=== PATIENT | female | born 1940 | race Caucasian/White ===

== ENCOUNTER 2023-03-27 09:52 | Outpatient (OUT) | payer MEDICARE, OTHER, SELFPAY ==
[2023-03-27 14:27] LABS: Estimated Average Glucose 131 mg/dL; Glycohemoglobin A1C 6.2 % (4.5-6.2)
== END 2023-03-27 09:53 | disposition home or self-care (01) ==
LOC: LAB 10:00
PROVIDERS: PCP Internal Medicine; Visit Provider Internal Medicine
DX: E11.65 Type 2 diabetes mellitus with hyperglycemia (principal)
CPT/HCPCS: 36415; 83036

== ENCOUNTER 2023-05-03 07:21 | Outpatient (OUT) | payer MEDICARE, OTHER, SELFPAY ==
[2023-05-03 08:13] LABS: Alanine Aminotransferase 23 U/L (14-59); Anion Gap 8.6; Aspartate Amino Transferase 21 U/L (15-37); BUN Creatinine Ratio 20.3; Calcium 8.5 mg/dL (8.5-10.1); Carbon Dioxide 35.3 mmol/L (21.0-32.0); Chloride 102 mmol/L (98-107); Chol HDL Ratio 2.2; Cholesterol 196 mg/dL (<=200); Estimated GFR (African America >60 (>=60); Estimated GFR (Non-African Ame >60 (>=60); Glucose 114 mg/dL (74-106); HDL Cholesterol 88 mg/dL (40-60); Potassium 3.9 mmol/L (3.5-5.1); Sodium 142 mmol/L (136-145); Triglycerides 89 mg/dL (<=150); VLDL CHOLESTEROL 17.8 mg/dL
== END 2023-05-03 07:22 | disposition home or self-care (01) ==
LOC: LAB 07:24
PROVIDERS: PCP Internal Medicine; Visit Provider Nurse Practitioner
DX: I25.10 Atherosclerotic heart disease of native coronary artery without angina pectoris (principal); I10 Essential (primary) hypertension; E78.2 Mixed hyperlipidemia
CPT/HCPCS: 36415; 80048; 80061; 84450; 84460

== ENCOUNTER 2023-08-25 07:32 | Outpatient (OUT) | payer MEDICARE, OTHER, SELFPAY ==
[2023-08-25 08:09] LABS: Basophils Percent Auto 0.6 % (0.2-2.0); Eosinophils Absolute Auto 0.1 10^3/uL (0.0-0.7); Eosinophils Percent Auto 2.2 % (0.9-7.0); Hematocrit 40.3 % (36.0-48.0); Hemoglobin 12.4 g/dL (12.0-16.0); Immature Granulocytes Abs Auto 0.01 10^3/uL (0.00-0.03); Immature Granulocytes Pct Auto 0.2 % (0.0-0.5); Lymphocytes Percent Auto 46.8 % (20.5-60.0); Mean Corpuscular HGB Conc 30.8 g/dL (29.9-35.2); Mean Corpuscular Hemoglobin 28.8 pg (26.7-34.0); Mean Corpuscular Volume 93.5 fL (81.0-99.0); Monocytes Absolute Auto 0.5 10^3/uL (0.3-0.8); Monocytes Percent Auto 7.3 % (1.7-12.0); Neutrophils Absolute Auto 2.8 10^3/uL (1.4-6.5); Neutrophils Percent Auto 42.9 % (43.0-75.0); Platelet Count 200 10^3/uL (150-450); Red Blood Count 4.31 10^6/uL (4.20-5.40); Red Cell Distribution Width 13.3 % (11.0-15.0); White Blood Count 6.4 10^3/uL (4.0-11.0)
[2023-08-25 08:14] LABS: Estimated Average Glucose 137 mg/dL; Glycohemoglobin A1C 6.4 % (4.5-6.2)
== END 2023-08-25 07:33 | disposition home or self-care (01) ==
LOC: LAB 07:34
PROVIDERS: PCP Internal Medicine; Visit Provider Internal Medicine
DX: E11.65 Type 2 diabetes mellitus with hyperglycemia (principal); I10 Essential (primary) hypertension
CPT/HCPCS: 36415; 83036; 85025

== ENCOUNTER 2024-09-02 07:03 | Outpatient (OUT) | payer OTHER, SELFPAY ==
--- OUTSIDE RECORDS SUMMARY | 2024-09-02 07:09 | XMS_ITS | CCD ---
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 Role Phone DO Blue Navarro Primary Care Provider JUAN Green Attending Provider [phone] Blue Navarro DO Primary Care Provider Blue Navarro DO Primary Care Provider DO Blue Navarro Primary Care Provider DO José Nelson Admit Provider DO Julio Schreiber Attending Provider DO [place] Emergency Provider DO Julio Schreiber Admit Provider [phone] Blue Navarro Unavailable Unavailable Unavailable MD Je Ruiz Attending Provider Blue Navarro Unavailable MELANIE, DR MCARTHUR Primary Care Unavailable PAY ., DR SOLIS Admitting Unavailable PAY ., DR SOLIS Attending Unavailable MELANIE, DR MCARTHUR Consulting Unavailable PAY ., DR SOLIS Consulting Unavailable MELANIE, DR MCARTHUR Primary Care Unavailable FRANSICO, DR BRUNO Oliveira Admitting Unavailabl e REINECK, DR BRUNO Oliveira Attending Unavailabl e RUBYECK, DR BRUNO Oliveira Consulting Unavailabl e NEFMANJULA DOTY Consulting Unavailable DO Blue Navarro Primary Care Provider MD Je Ruiz Attending Provider DO Blue Navarro Other Provider JUAN Valentin Attending Provider Asaad, Imad Unavailable Dr. Je Daley Attending Unava ilable McGuinn II, Dr. Je Porras Attending Unavailable Melanie, Dr. Blue Sutherland Primary Care Caden Navarro, Dr. Blue Sutherland Primary Care Caden Daley, Dr. Je Fowler Attending Unava ilable Edi, Dr. Je Fowler Attending Unava ilable Edi, Dr. Je Fowler Attending Unava ilable McGuinn II, Dr. Je Porras Attending Unavailable Melanie, Dr. Blue Sutherland Primary [facility] Fabii raphael Ruiz II, Dr. Je Porras Referring Unavailable Melanie, Dr. Blue Sutherland [facility] Shanna Light Referring Unavailable Werner, Shanna Attending Unavailable Melanie, Dr. Blue Sutherland Primary [facility] Shanna Light Attending Unavailable Sara MALCOLM, Dr. Je Porras Referring Unavailable Melanie, Dr. Blue Sutherland Primary [facility] Caden Navarro, DO Mcarthur Primary Care Provider [phone] MD Je Ruiz Attending Provider Blue Navarro DO Primary Care Provider Melanie, DO Mcarthur Primary Care Provider MD Je Ruiz Attending Provider DO Blue Navarro Primary Care Provider MD Je Ruiz Attending Provider Melanie, DO Mcarthur Primary Care Provider MD Je Ruiz Attending Provider Melanie, DO Mcarthur Primary Care Provider MD Je Ruiz Attending Provider SHANNA CALDERA Attending Unavailable BLUE NAVARRO Primary Care Unavailable SHANNA CALDERA K Attending Unavailable SHANNA CALDERA K Referring Unavailable BLUE NAVARRO Primary Care Unavailable JE RUIZ Attending Unavailable SHANNA CALDERA K Referring Unavailable BLUE NAVARRO Primary Care Unavailable Blue Navarro DO Primary Care Provider Blue Navarro DO Primary Care Provider Blue Navarro DO Primary Care Provider [phone] Beau Dillard MD Attending Provider Je Ruiz Attending Unavail able Je Ruiz Admitting Unavail able Melanie, Blue Primary Care Unavailable Je Ruiz Attending Unavail able Je Ruiz Admitting Unavail able Ball, Blue Primary Care Unavailable Ball, Blue Primary Care Unavailable Beau Dillard Attending Unavailable Beau Dillard Admitting Unavailable Melanie, Blue Primary Care Unavailable Beau Dillard Attending Unavailable Beau Dillard Admitting Unavailable Ball DOBlue Primary Care Provider [phone] Beau Dillard MD Attending Provider Allergies Allergy Classification Reported Allergen(s) Allergy Type Date of Onset Reaction(s) Facility (1 source) patient allergy list reviewed by nurse or physicia Propensity to adverse reactions 5 Comment:[employer] Other Medications Current Medications Medication Drug Class(es) Dates Sig (Normalized) Sig (Original) acetaminophen 500 mg oral tablet (5 sources) Start: 02-09-2021 take 1 tablet by mouth every eight hours as needed acetaminophen (TYLENOL EXTRA STRENGTH) 500 mg tablet Take 1 tablet by mouth every 8 hours as needed for pain or fever (specify). 60 tablet 02/09/2021 Active Comment on above: Take 1 tablet by mouna every 8 hours as needed for pain or fever (specify). alendronic acid 70 mg oral tablet (5 sources) Bisphosphonate Start: 07-04-2020 alendronate (FOSAMAX) 70 mg tablet Pt reports taking every 07/04/2020 Active Comment on above: Pt reports taking ev anand amLODIPine 2.5 mg oral tablet (20 sources) Dihydropyridine Calcium Channel Jermain Start: 08-22-2023 take 1 tablet by mouth once daily in the evening Amlodipine 2.5 mg tablet Active 2.5 MG PO Daily 90 90 August 22, 2023 12:00am Take in evening Start: 08-19-2023 End: 08-22-2023 take 1 tablet by mouth twice daily Amlodipine 10 mg tablet Discontinued 10 MG PO Twice daily August 19, 2023 12:00am August 22, 2023 10:18am Start: 07-27-2023 End: 07-26-2024 take 1 tablet by mouth once daily Amlodipine 5 mg tablet Active 5 MG PO Daily August 22, 2023 12:00am Start: 09-05-2022 End: 05-01-2023 take 1 tablet by mouth twice daily amLODIPine (Norvasc) 2.5 mg tablet Take 1 tablet (2.5 mg) by mouth 2 times a day. 0 03/18/2023 05/01/2023 Discontinued () Start: 09-05-2022 take 1 tablet by mouna th every twenty-four hours amLODIPine Besylate 2.5 MG 1 tablet Orally Once a day for 30 days Sep, Active Start: 05-05-2022 End: 05-09-2022 take 1 tablet by mouth once daily Amlodipine 5 mg tablet Discontinued 5 MG PO Daily May 05, 2022 1:00am May 09, 2022 12:39pm take 1 tablet by mouna th twice daily amLODIPine Besylate 10 MG TAKE 1 TABLET BY MOUTH TWICE A DAY FOR 30 DAYS Active atorvastatin 10 mg oral tablet (20 sources) HMG-CoA Reductase Inhibitor Start: 05-08-2022 End: 08-22-2024 take 1 tablet by mouth once daily in the evening Atorvastatin 10 mg tablet Active 10 MG PO Every evening 90 August 22, 2024 10:17am Calcium (5 sources) Phosphate Binder, Calcium CALCIUM ORAL Take by mouth once daily. Active CALCIUM ORAL Ryan e by mouth once daily. 0 Active Comment on above: Take by mouth once d aily. citalopram 20 mg oral tablet (20 sources) Serotonin Reuptake Inhibitor Start: 10-05-2023 End: 08-22-2024 take 1 tablet by mouth once daily at bedtime Citalopram 20 mg tablet Active 0 .ROUTE .COMPLEX August 22, 2024 6:53am TAKE 1 TABLET BY MOUTH EVERYDAY AT BEDTIME Start: 07-09-2020 End: 10-05-2023 take 1 tablet by mouth at bedtime Citalopram 20 mg tablet Discontinued 20 MG PO Bedtime May 05, 2022 1:00am October 05, 2023 4:22pm Comment on above: TAKE 1 TABLET BY MOUNA TH EVERYDAY AT BEDTIME docusate sodium 100 mg oral capsule (7 sources) Start: 02-09-2021 take 1 capsule by mouth twice daily docusate sodium (COLACE) 100 mg capsule Take 1 capsule by mouth twice daily. 60 capsule 1 02/09/2021 Active take 1 capsule by [facility] every twenty-four hours Colace 100 MG 1 capsule as needed Orally Once a day Active Comment on above: Take 1 capsule by [facility] twice daily. furosemide 40 mg oral tablet (20 sources) Loop Diuretic Start: 10-06-2023 take 1 tablet by mouth once daily Furosemide 40 mg tablet Active 0 .ROUTE .COMPLEX October 06, 2023 10:04am TAKE 1 TABLET BY MOUTH EVERY DAY FOR 30 DAYS Start: 07-23-2020 End: 10-06-2023 take 1 tablet by mouth once daily Furosemide 40 mg Tablet Discontinued 40 MG PO Daily at 0800 90 May 13, 2022 1:00am October 06, 2023 10:04am Furosemide 40 MG TAKE 1 TABLET BY MOUTH 1-2 TIMES A DAY NEEDED Active Comment on above: Take 40 mg by mouth once daily. LORazepam 0.5 mg oral tablet (5 sources) Benzodiazepine take 0.5 mg by mouth every twelve hours as needed LORazepam (ATIVAN) 0.5 mg Take 0.5 mg by mouth twice daily as needed. Active Comment on above: Take 0.5 mg by mouth twice daily as needed. magnesium hydroxide 80 mg/ml oral suspension (5 sources) magnesium hydrox barb (MILK OF MAGNESIA) 400 mg/5 mL suspension Take by mouth once daily as needed. Active Comment on above: Take by mouth once d aily as needed. magnesium oxide 400 mg oral tablet (20 sources) Start: 2 take 1 tablet by mouth twice daily Magnesium Oxide 400 (240 Mg) MG Oral Tablet TAKE 1 TABLET BY MOUTH TWICE DAILY Quantity: 180 Refills: 3 Ordered: 22-Aug-2022 Shanna Maurice Start : 31-May-2022 Active Start: 05-31-2022 take 1 tablet by mouna once daily Magnesium Oxide 400 (240 Mg) MG Oral Tablet TAKE 1 TABLET BY MOUTH EVERY DAY Quantity: 30 Refills: 3 Ordered: 31-May-2022 Beau Dillard MD Start : 31-May-2022 Active Start: 05-08-2022 take 1 tablet by mouna once daily Magnesium Oxide 400 mg (241.3 mg magnesium) Tablet Active 400 MG PO Daily May 08, 2022 1:00am take 1 tablet by mouna once daily at mealtime take 1 tablet by mouna th once daily at mealtime Magnesium Oxide 400 (240 Mg) MG 1 tablet with food Orally Once a day Active MULTI-VITAMIN ORAL (5 sources) MULTI-VITAMIN OR AL Take by mouth once daily. Active MULTI-VITAMIN OR AL Take by mouth once daily. 0 Active Comment on above: Take by mouth once d aily. naloxone hydrochloride 40 mg/ml nasal spray (10 sources) Opioid Antagonist Start: naloxone (NARCAN) 4 mg/actuation nasal spray Use 1 spray in one nostril as needed for overdose. May repeat every 2 to 3 min in alternating nostrils until medical assistance is available 1 Box 02/09/2021 Active Comment on above: Use 1 spray in one n ostril as needed for overdose. May repeat every 2 to 3 min in alternating nostrils until medical assistance is available nitrofurantoin, macrocrystals 25 mg / nitrofurantoin, monohydrate 75 mg oral capsule (1 source) Nitrofuran Antibacterial Start: take 1 capsule by mouth every twelve hours at mealtime Nitrofurantoin Monohyd/M-Cryst 100 mg capsule Active 100 MG PO Every 12 hours 10 August 22, 2024 12:00am must administer with a meal/food pantoprazole 20 mg delayed release oral tablet (10 sources) Proton Pump Inhibitor Start: take 1 tablet by mouth once daily pantoprazole DR (PROTONIX) 20 mg tablet Take 1 tablet by mouth once daily for 14 days. 14 tablet 02/09/2021 Active Start: 01-21-2021 take 1 tablet by mouna once daily pantoprazole DR (PROTONIX) 40 mg tablet Take 1 tablet by mouth once daily. 30 tablet 01/21/2021 Active Comment on above: Take 1 tablet by mouna once daily. Take 1 tablet by mouna once daily for 14 days. traMADol hydrochloride 50 mg oral tablet (20 sources) Opioid Agonist Start: 12-20-2022 take 1 tablet by mouth every twenty-four hours traMADol HCl 50 MG 1 tablet as needed Orally Once a day for 30 days Dec, Active Start: 05-05-2022 take 1 tablet by mouna th every six hours as needed for pain Tramadol 50 mg tablet Active 50 MG PO Every 6 hours as needed for Pain May 05, 2022 1:00am take 1 tablet by mouna three times daily traMADol HCl - 50 MG Oral Tablet TAKE 1 TABLET 3 TIMES DAILY. Quantity: 0 Refills: 0 Ordered: 13-May-2022 DO Active Comment on above: Take 50 mg by mouth every 6 hours as needed for pain. valsartan 160 mg oral tablet (20 sources) Angiotensin 2 Receptor Jermain Start: 08-19-2023 End: 08-22-2023 take 1 tablet by mouth twice daily Valsartan 160 mg tablet Active 160 MG PO Twice daily 180 90 August 22, 2023 10:44am Start: 08-23-2022 take 1 tablet by mouna every twelve hours Valsartan 160 MG 1 tablet Orally Twice a day Aug, Active Start: 08-22-2022 End: 11-27-2024 take 1 tablet by mouth once daily valsartan (Diovan) 160 mg tablet Indications: Essential hypertension, benign Take 1 tablet (160 mg) by mouth once daily. 90 tablet 3 11/28/2023 11/27/2024 Active Completed/Discontinued Medications Medication Drug Class(es) Dates Sig (Normalized) Sig (Original) aspirin 81 mg delayed release oral tablet (20 sources) Platelet Aggregation Inhibitor, Nonsteroidal Anti-inflammatory Drug Start: 05-08-2022 End: 08-19-2023 take 1 tablet by mouth once daily Aspirin 81 mg Tablet,Delayed Release (Dr/Ec) Discontinued 81 MG PO Daily May 08, 2022 1:00am August 19, 2023 11:09am Start: 01-21-2021 take 1 tablet by mouna twice daily aspirin, enteric coated (ECOTRIN LOW STRENGTH) 81 mg EC tablet Take 1 tablet by mouth twice daily. 60 tablet 01/21/2021 Active Comment on above: Take 1 tablet by mouna twice daily. carvedilol 6.25 mg oral tablet (20 sources) alpha-Adrenergic Jermain, beta-Adrenergic Jermain Start: 05-06-20 End: 08-19-19 take 1 tablet by mouth twice daily at mealtime Carvedilol (Coreg) 6.25 mg tablet Discontinued 6.25 MG PO Twice daily May 06, 2022 1:00August 19, 2023 11:09am must administer with a meal/food clindamycin 300 mg oral capsule (17 sources) Lincosamide Antibacterial Start: 05-06-20 End: 05-13-20 take 2 capsules by mouth three times daily Clindamycin Hcl 300 mg capsule Discontinued 600 MG PO Three times daily 05 06May 06, 2022 1:00am May 13, 2022 11:20am Start: 05-06-2022 End: 05-13-2022 take 600 mg by mouth three times daily Clindamycin Hcl Discontinued 600 MG PO Three times daily 05 06May 06, 2022 1:00am May 13, 2022 11:20am diazePAM 5 mg oral tablet (20 sources) Benzodiazepine Start: 05-05-2022 End: 03-03-2024 take 1 tablet by mouth every six hours as needed for anxiety Diazepam 5 mg tablet Discontinued 5 MG PO Every 6 hours as needed for anxiety 60 September 21, 2023 2:47pm March 03, 2024 5:57pm take 1 tablet by mouna three times daily as needed diazePAM (Valium) 5 mg tablet Take 1 tablet (5 mg) by mouth 3 times a day as needed. Active Comment on above: Take 5 mg by mouth e very 6 hours as needed. gabapentin 300 mg oral capsule (20 sources) Anti-epileptic Agent Start: 05-05-2022 End: 08-19-2023 take 1 capsule by mouth once daily Gabapentin 300 mg capsule Discontinued 300 MG PO Daily May 05, 2022 1:00am August 19, 2023 11:09am Start: 12-18-2020 take 1 capsule by [facility] three times daily gabapentin (NEURONTIN) 300 mg capsule Take 1 capsule by mouth three times daily for 30 days. 90 capsule 12/18/2020 Active Comment on above: Take 1 capsule by mo [facility] three times daily for 30 days. lisinopril 5 mg oral tablet (20 sources) Angiotensin Converting Enzyme Inhibitor Start: 07-18-2022 take 1 tablet by mouth every twenty-four hours Lisinopril 10 MG 1 tablet Orally Once a day for 90 days Jul, Active Start: 05-08-2022 End: 11-28-2023 take 1 tablet by mouth once daily Lisinopril 5 mg Tablet Discontinued 5 MG PO Daily May 08, 2022 1:00am August 19, 2023 11:10am Start: 05-05-2022 End: 05-09-2022 take 1 tablet by mouth once daily Lisinopril 30 mg tablet Discontinued 30 MG PO Daily May 05, 2022 1:00am May 09, 2022 12:39pm take 2 tablets by mo uth once daily lisinopril (ZESTRIL, PRINIVIL) 10 mg tablet Take 20 mg by mouth once daily. Active Comment on above: Take 20 mg by mouth once daily. ondansetron 4 mg disintegrating oral tablet (20 sources) Serotonin-3 Receptor Antagonist Start: 05-05-20 End: 08-19-19 take 1 tablet by mouth every six hours as needed for nausea and vomiting Ondansetron 4 mg Tablet,Disintegratin g Discontinued 4 MG PO Q6H as needed for Nausea And Vomiting May 05, 2022 1:00am August 19, 2023 11:10am Start: 02-09-2021 take 1 tablet by mouna th every eight hours as needed ondansetron (ZOFRAN) 4 mg tablet Take 1 tablet by mouth every 8 hours as needed for nausea/vomiting (For Nausea). 10 tablet 02/09/2021 Active take 1 tablet by mouna th every six hours Ondansetron HCl - 4 MG Oral Tablet TAKE 1 TABLET Every 6 hours PRN Quantity: 0 Refills: 0 Ordered: 13-May-2022 DO Active Comment on above: Take 1 tablet by mouna th every 8 hours as needed for nausea/vomiting (For Nausea). potassium chloride 20 meq extended release oral tablet (17 sources) Start: End: take 1 tablet by mouth once daily Potassium Chloride 20 mEq Tablet Extended Release Discontinued 20 MEQ PO Daily May 05, 2022 1:00am May 09, 2022 12:39pm predniSONE 20 mg oral tablet (6 sources) Start: 024 End: Prednisone 20 mg tablet Discontinued 20 MG PO As Directed January 15, 2024 12:00am August 22, 2024 10:07am 1 tab tid w/ food x 3 days, then bid w/ food x 3 days, then qd w/ food x 3 days sulfamethoxazole 800 mg / trimethoprim 160 mg oral tablet (17 sources) Dihydrofolate Reductase Inhibitor Antibacterial, Sulfonamide Antimicrobial Start: End: take 1 tablet by mouth three times daily Sulfamethoxazole-Tr imethoprim 800-160 mg tablet Discontinued 800 TAB PO Three times daily May 05, 2022 1:00am May 09, 2022 12:39pm Problems Active Problems Problem Classification Problem Date Documented Da te Episodic/Chronic Acute myocardial infarction (20 sources) Myocardial infarction; Translations: [Non-ST elevation (NSTEMI) myocardial infarction] Onset: 05-05-2022 05-06-2022 Chronic Comment on above: Problem List clean-u p per request of Phys. EHR Cmte Allergic reactions (3 sources) Allergic contact dermatitis, unspecified cause; Translations: [Contact dermatitis and other eczema, unspecified cause] 01-15-2024 Episodic Anxiety disorders (20 sources) Generalized anxiety disorder; Translations: [Generalized anxiety disorder] Chronic Cardiac dysrhythmias (20 sources) Nonsustained ventricular tachycardia ; Translations: [Nonsustained ventricular tachycardia] 05-06-2022 Chronic Comment on above: Problem List clean-u p per request of Phys. EHR Cmte Cardiac dysrhythmias (20 sources) Bradycardia; Translations: [Bradycardia, unspecified] 05-05-2022 Episodic Comment on above: Problem List clean-u p per request of Phys. EHR Cmte Chronic ulcer of skin (1 source) Chronic ulcer of skin; Translations: [Non-pressure chronic ulcer of skin of other sites with unspecified severity] Onset: 08-25-2015 Chronic Conditions associated with dizziness or vertigo (14 sources) Benign paroxysmal positional vertigo; Translations: [Benign paroxysmal vertigo, bilateral] Onset: 02-04-2016 Episodic Conduction disorders (20 sources) Heart block ; Translations: [Conduction disorder, unspecified] Onset: 05-06-2022 Resolved: 05-01-2023 05-05-2022 Chronic Comment on above: Problem List clean-u p per request of Phys. EHR Cmte Congestive heart failure; nonhypertensive (20 sources) Acute exacerbation of chronic congestive heart failure; Translations: [Heart failure, unspecified] 05-12-2022 Chronic Comment on above: Problem List clean-u p per request of Phys. EHR Cmte Coronary atherosclerosis and other heart disease (12 sources) Coronary arteriosclerosis; Translations: [Coronary atherosclerosis of unspecified type of vessel, [place] or graft] Onset: 04-26-2023 05-01-2023 Chronic Deficiency and other anemia (1 source) Anemia due to chronic blood loss; Translations: [Iron deficiency anemia secondary to blood loss (chronic)] Onset: 02-04-2016 Chronic Diabetes mellitus with complications (20 sources) Hyperglycemia due to type 2 diabetes mellitus; Translations: [Type 2 diabetes mellitus with hyperglycemia] Resolved: 03-12-2020 Chronic Diabetes mellitus without complication (1 source) Type 2 diabetes mellitus without complication; Translations: [Diabetes mellitus without mention of complication, type II or unspecified type, not stated as uncontrolled] Onset: 03-28-2013 Chronic Diabetes mellitus without complication (11 sources) Impaired fasting glycemia; Translations: [Impaired fasting glucose] Episodic Disorders of lipid metabolism (20 sources) Hyperlipidemia, group A; Translations: [Pure hypercholesterolemia, unspecified] Onset: 04-26-2023 Chronic Essential hypertension (20 sources) Essential hypertension; Translations: [Essential (primary) hypertension] Onset: 11-06-2013 02-10-2021 Chronic Comment on above: Problem List clean-u p per request of Phys. EHR Cmte Genitourinary symptoms and ill-defined conditions (11 sources) Dysuria; Translations: [Dysuria] Episodic Heart valve disorders (5 sources) Aortic valve regurgitation; Translations: [Nonrheumatic aortic (valve) insufficiency] Onset: 01-20-2021 01-20-2021 Chronic Hemorrhoids (20 sources) Hemorrhoids; Translations: [Unspecified hemorrhoids] 05-07-2022 Episodic Comment on above: Problem List clean-u p per request of Phys. EHR Cmte Immunizations and screening for infectious disease (1 source) Vaccination given; Translations: [Encounter for immunization] Episodic Inflammation; infection of eye (except that caused by tuberculosis or sexually transmitteddisease) (12 sources) Acute follicular conjunctivitis of left eye; Translations: [Acute follicular conjunctivitis, left eye] Episodic Joint disorders and dislocations; trauma-related (19 sources) Unspecified dislocation of right hip, subsequent encounter; Translations: [Dislocation of right hip, subsequent encounter] Episodic Menopausal disorders (1 source) Primary ovarian failure; Translations: [Other primary ovarian failure] Onset: 01-24-2017 Chronic Osteoarthritis (20 sources) Localized, primary osteoarthritis of the pelvic region and thigh; Translations: [Unilateral primary osteoarthritis, right hip] Onset: 01-14-2015 Chronic Osteoporosis (18 sources) Primary osteoporosis; Translations: [Age-related osteoporosis without current pathological fracture] Chronic Other aftercare (2 sources) Other assisted (current) drug therapy; Translations: [OTH ORTHODONTIC TECHNICIAN ASSISTANT CURRENT DRUG THERAPY] Onset: 08-29-2022 Episodic Other aftercare (1 source) Drug therapy finding; Translations: [Other assisted (current) drug therapy] 08-22-2024 Episodic Other and ill-defined heart disease (20 sources) Takotsubo cardiomyopathy; Translations: [Takotsubo syndrome] Onset: 05-05-2022 05-06-2022 Chronic Comment on above: Problem List clean-u p per request of Phys. EHR Cmte Other and ill-defined heart disease (13 sources) Takotsubo syndrome; Translations: [Takotsubo syndrome] Onset: 04-26-2023 05-09-2022 Chronic Other and unspecified benign neoplasm (19 sources) History of polyp of colon; Translations: [Personal history of colonic polyps] Episodic Other congenital anomalies (1 source) Congenital spondylolysis of lumbosacral region; Translations: [Congenital spondylolysis, lumbosacral region] Onset: 11-20-2017 Chronic Other connective tissue disease (1 source) History of revision of right total hip arthroplasty; Translations: [Presence of right artificial hip joint] Chronic Other connective tissue disease (11 sources) History of repair of hip joint; Translations: [Presence of right artificial hip joint] Onset: 01-21-2021 01-21-2021 Chronic Other connective tissue disease (19 sources) History of total replacement of right hip joint; Translations: [Presence of right artificial hip joint] 01-11-2022 Chronic Other connective tissue disease (1 source) Presence of right artificial hip joint; Translations: [Total hip replacement Prosthesis] Chronic Other diseases of veins and lymphatics (16 sources) Peripheral venous insufficiency; Translations: [Venous insufficiency (chronic) (peripheral)] Episodic Other diseases of veins and lymphatics (3 sources) Venous insufficiency (chronic) (peripheral) Episodic Other ear and sense organ disorders (7 sources) Hearing loss of right ear; Translations: [Unspecified hearing loss, right ear] 11-15-2023 Chronic Other ear and sense organ disorders (7 sources) Unspecified hearing loss, right ear; Translations: [Unspecified hearing loss] 11-15-2023 Chronic Other ear and sense organ disorders (7 sources) Impacted cerumen; Translations: [Impacted cerumen, unspecified ear] 11-15-2023 Episodic Other ear and sense organ disorders (4 sources) Impacted cerumen, unspecified ear; Translations: [Impacted cerumen] 11-15-2023 Episodic Other ear and sense organ disorders (6 sources) Tinnitus; Translations: [Tinnitus, unspecified ear] 12-05-2023 Episodic Other ear and sense organ disorders (3 sources) Tinnitus, unspecified ear; Translations: [Tinnitus, unspecified] 12-05-2023 Episodic Other gastrointestinal disorders (20 sources) Constipation; Translations: [Constipation, unspecified] 05-07-2022 Episodic Comment on above: Problem List clean-u p per request of Phys. EHR Cmte Other gastrointestinal disorders (4 sources) Constipation, unspecified; Translations: [Constipation, unspecified] 05-09-2022 Episodic Other gastrointestinal disorders (11 sources) Chronic constipation; Translations: [Other constipation] Episodic Other gastrointestinal disorders (11 sources) Altered bowel function; Translations: [Change in bowel habit] Episodic Other hereditary and degenerative nervous system conditions (18 sources) Restless legs; Translations: [Restless legs syndrome] Chronic Other hereditary and degenerative nervous system conditions (2 sources) Restless legs syndrome Chronic Other injuries and conditions due to external causes (1 source) History of fall; Translations: [History of falling] Episodic Other lower respiratory disease (11 sources) Dyspnea on exertion; Translations: [Other forms of dyspnea] Episodic Other lower respiratory disease (1 source) Dyspnea; Translations: [Other forms of dyspnea] Episodic Other nervous system disorders (11 sources) Salter's palsy; 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 Other non-traumatic joint disorders (3 sources) Pain in right hip joint; Translations: [Pain in right hip] Onset: 11-12-2020 11-12-2020 Episodic Other nutritional; endocrine; and metabolic disorders (12 sources) Obesity; Translations: [Obesity, unspecified] Chronic Other nutritional; endocrine; and metabolic disorders (4 sources) Overweight; Translations: [Overweight] 02-22-2024 Episodic Other nutritional; endocrine; and metabolic disorders (2 sources) Body mass index (BMI) 25.0-25.9, adult; Translations: [Body mass index (BMI) 25.0-25.9, adult] Onset: 11-28-2023 Episodic Other nutritional; endocrine; and metabolic disorders (1 source) Overweight; Translations: [Overweight] 02-22-2024 Episodic Other upper respiratory disease (6 sources) Hoarse; Translations: [Dysphonia] 12-05-2023 Episodic Other upper respiratory disease (3 sources) Dysphonia; Translations: [Dysphonia] 12-05-2023 Episodic Otitis media and related conditions (8 sources) Dysfunction of eustachian tube; Translations: [Unspecified Eustachian tube disorder, unspecified ear] 12-05-2023 Episodic Residual codes; unclassified (18 sources) Asymptomatic menopausal state; Translations: [Menopause] Episodic Residual codes; unclassified (1 source) Edema, unspecified; Translations: [EDEMA UNSPECIFIED] Onset: 08-29-2022 Episodic Residual codes; unclassified (1 source) Postmenopausal state; Translations: [Asymptomatic menopausal state] Episodic Residual codes; unclassified (1 source) Preventive procedure; Translations: [Encounter for other specified prophylactic measures] Episodic Residual codes; unclassified (1 source) Pain; Translations: [Pain, unspecified] 07-27-2021 Episodic Residual codes; unclassified (1 source) Mammogram declined; Translations: [Procedure and treatment not carried out because of patient's decision for unspecified reasons] 08-22-2024 Episodic Residual codes; unclassified (1 source) Procedure and treatment not carried out because of patient's decision for unspecified reasons; Translations: [Surgical or other procedure not carried out because of patient's decision] 08-22-2024 Episodic Respiratory failure; insufficiency; arrest (adult) (20 sources) Acute respiratory failure; Translations: [Acute respiratory failure with hypoxia] 05-07-2022 Episodic Comment on above: Problem List clean-u p per request of Phys. EHR Cmte Spondylosis; intervertebral disc disorders; other back problems (20 sources) Degeneration of lumbar intervertebral disc; Translations: [Other intervertebral disc degeneration, lumbar region] Onset: 01-20-2021 01-20-2021 Chronic Substance-related disorders (18 sources) Tobacco user; Translations: [Nicotine dependence, cigarettes, in remission] Chronic Unclassified (1 source) CONTACT W/AND (SUSP) EXPOS COVID-19; Translations: [CONTACT W/AND (SUSP) EXPOS COVID-19] Onset: 05-08-2022 Unclassified (1 source) Other ventricular tachycardia; Translations: [Other ventricular tachycardia] Onset: 05-05-2022 Urinary tract infections (20 sources) Urinary tract infectious disease; Translations: [Urinary tract infection, site not specified] 05-05-2022 Episodic Comment on above: Problem List clean-u p per request of Phys. EHR Cmte Viral infection (1 source) Disease caused by 2019-nCoV; Translations: [COVID-19] Past or Other Problems Problem Classification Problem Date Documented Da te Episodic/Chronic Other gastrointestinal disorders (1 source) Disorder of digestive system; Translations: [Personal history of other diseases of digestive disease] Onset: 02-04-2016 Episodic Other lower respiratory disease (4 sources) Shortness of breath; Translations: [SHORTNESS OF BREATH] Onset: 05-05-2022 Episodic Other nervous system disorders (3 sources) Myasthenia gravis; Translations: [Myasthenia gravis without (acute) exacerbation] Onset: 01-20-2021 Resolved: 02-10-2021 02-10-2021 Chronic Other non-traumatic joint disorders (1 source) Arthralgia of the pelvic region and thigh; Translations: [Pain in joint, pelvic region and thigh] Onset: 05-07-2014 Episodic Other non-traumatic joint disorders (3 sources) Hip pain; Translations: [Pain in right hip] Onset: 11-12-2020 11-12-2020 Episodic Other nutritional; endocrine; and metabolic disorders (3 sources) Overweight in adulthood with body mass index of 25 or more but less than 30; Translations: [Overweight] Onset: 11-28-2023 11-28-2023 Episodic Other nutritional; endocrine; and metabolic disorders (1 source) Body mass index 25-29 - overweight; Translations: [Body mass index (BMI) 26.0-26.9, adult] Onset: 01-24-2017 Episodic Residual codes; unclassified (5 sources) Swelling; Translations: [Edema, unspecified] Onset: 01-20-2021 01-20-2021 Episodic Residual codes; unclassified (10 sources) Body mass index 20-24 - normal; Translations: [Body Mass Index between 19-24, adult] Onset: 05-01-2023 05-01-2023 Episodic Residual codes; unclassified (1 source) Requires influenza virus vaccination; Translations: [Need for prophylactic vaccination and inoculation, Influenza] Onset: 02-12-2018 Episodic Residual codes; unclassified (2 sources) Body mass index (BMI) 24.0-24.9, adult; Translations: [Body mass index (BMI) 24.0-24.9, adult] Onset: 05-01-2023 Episodic Screening and history of mental health and substance abuse codes (8 sources) Ex-smoker; Translations: [Personal history of tobacco use] Onset: 11-20-2017 Episodic Comment on above: 40-50 years ago; Unclassified (16 sources) NSVT (nonsustained ventricular tachycardia); Translations: [NSVT (nonsustained ventricular tachycardia)] Unclassified (1 source) NSVT (nonsustained ventricular tachycardia) I47.29 Unclassified (1 source) Onset: 11-28-2023 11-28-2023 Results Test Name Value Interpretation Reference Range Facility Basophils Auto (Bld) [#/Vol] on 08-25-2023 Basophils (Bld) [#/Vol] 0.0 10 3/uL 0.0-0.1 [facility] Basophils/100 WBC Auto (Bld) on 08-25-2023 Basophils/100 WBC (Bld) 0.6 % 0.2-2.0 [facility] Eosinophils/100 WBC Auto (Bl d)on 08-25-2023 Eosinophils/100 WBC (Bld) 2.2 % 0.9-7.0 [facility] Erythrocyte distribution wid th Auto (RBC) [Ratio]on 08-25-2023 Erythrocyte distribution width (RBC) [Ratio] 13.3 % 11.0-15.0 [facility] Glucose mean value [Mass/vol ume] in Blood Estimated from glycated hemoglobinon 08-25-2023 Average glucose Estimated from glycated hemoglobin (Bld) [Mass/Vol] 137 mg/dL [facility] Hematocrit Auto (Bld) [Volum e fraction]on 08-25-2023 Hematocrit (Bld) [Volume fraction] 40.3 % 36.0-48.0 [facility] Hemoglobin [Mass/volume] in Bloodon 08-25-2023 Hemoglobin (Bld) [Mass/Vol] 12.4 g/dL 12.0-16.0 [facility] Laboratory - Hematology and Cell countson 08-25-2023 HbA1c (Bld) [Mass fraction] 6.4 % 4.5-6.2 [facility] Comment on above: ADA RECOMMENDED LIMI T 4.0 - 6.0ADA THERAPEUTIC TARGET < 7.0ACTION SUGGESTED> 7.0 Immature granulocytes/100 WBC (Bld) 0.2 % 0.0-0.5 [facility] Leukocytes [#/volume] correc aleksey for nucleated erythrocytes in Blood by Automated counon 08-25-2023 WBC corrected for nucl RBC Auto (Bld) [#/Vol] 6.4 10 3/uL 4.0-11.0 [facility] Lymphocytes Auto (Bld) [#/Vo l]on 08-25-2023 Lymphocytes (Bld) [#/Vol] 3.0 10 3/uL 1.2-3.8 [facility] Lymphocytes/100 WBC Auto (Bl d)on 08-25-2023 Lymphocytes/100 WBC (Bld) 46.8 % 20.5-60.0 [facility] MCH Auto (RBC) [Entitic mass ]on 08-25-2023 MCH (RBC) [Entitic mass] 28.8 pg 26.7-34.0 [facility] MCHC Auto (RBC) [Mass/Vol]on 08-25-2023 MCHC (RBC) [Mass/Vol] 30.8 g/dL 29.9-35.2 [facility] MCV Auto (RBC) [Entitic vol] on 08-25-2023 MCV (RBC) [Entitic vol] 93.5 fL 81.0-99.0 [facility] Monocytes Auto (Bld) [#/Vol] on 08-25-2023 Monocytes (Bld) [#/Vol] 0.5 10 3/uL 0.3-0.8 [facility] Monocytes/100 WBC Auto (Bld) on 08-25-2023 Monocytes/100 WBC (Bld) 7.3 % 1.7-12.0 [facility] Neutrophils Auto (Bld) [#/Vo l]on 08-25-2023 Neutrophils (Bld) [#/Vol] 2.8 10 3/uL 1.4-6.5 [facility] Neutrophils/100 WBC Auto (Bl d)on 08-25-2023 Neutrophils/100 WBC (Bld) 42.9 % 43.0-75.0 [facility] No Panel Informationon 08-24 Eosinophils # (Auto) 0.1 10 3/uL 0.0-0.7 [facility] Immature Granulocyte # (Auto) 0.01 10 3/uL 0.00-0.03 [facility] Platelet mean volume Auto (B ld) [Entitic vol]on 08-25-2023 Platelet mean volume (Bld) [Entitic vol] 10.0 fL 9.5-13.5 [facility] Platelets Auto (Bld) [#/Vol] on 08-25-2023 Platelets (Bld) [#/Vol] 200 10 3/uL 150-450 [facility] RBC Auto (Bld) [#/Vol]on RBC (Bld) [#/Vol] 4.31 10 6/uL 4.20-5.40 [facility] Office Visit (Cardiology)on 11-07-2022 Follow-up visit Diagnoses/Problems Assessed 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 Prior dose of carvedilol was discontinued due to myasthenia gravis Mild CAD (414.00) (I25.10) May 2022 cardiac cath minimal coronary artery disease Cardiac pacemaker (V45.01) (Z95.0) [facility] 227 dual-chamber permanent pacemaker Implant date May device interrogation with 8 minutes atrial tachycardia Hypertension, benign (401.1) (I10) Adjustments per PCP Mixed hyperlipidemia (272.2) (E78.2) Moderate intensity statin Overweight with body mass index (BMI) of 25 to 25.9 in adult (278.02,V85.21) (E66.3,Z68.25) Reviewed the merits of healthy lifestyle choices on overall cardiovascular health. Orders Overweight with body mass index (BMI) of 25 to 25.9 in adult Healthy Weight Tips; Status:Complete; Done: 07Nov2022 Patient Instructions Please bring all medicines, vitamins, and herbal supplements with you when you come to the office. Prescriptions will not be filled unless you are compliant with your follow up appointments or have a follow up appointment scheduled as per instruction of your physician. Refills should be requested at the time of your visit. PLAN: Through informed decision making process incorporating patients unique circumstances, the following treatment plan will be initiated: 1. Prescription drug management of cardiovascular medication for efficacy, adherence to treatment, side effect assessment and polypharmacy. Current treatment clinically warranted and to continue without modifications. 2. Return for follow-up; in the interim, contact the office if new symptoms arise. Dr. Ruiz in 6 months Chief Complaint Routine f/u: 'seem to be feeling better' ROSEANN DALE is being seen for a 3 month follow-up of hypertension and testing results. Patient presents to the office ambulatory with steady gait. Last evaluated in clinic by myself August 2022. At that time she was initiated on olmesartan due to hypertension with repeat potassium 3.8, creatinine 0.7. Her PCP has recently added Norvasc and increase valsartan; will defer additional management to PCP, patient has follow-up scheduled. Her 3-month chest x-ray following pacemaker unremarkable. Repeat October 2022 echo with resolution of Takotsubo cardiomyopathy. EF 55%. At last follow-up patient was concerned regarding her continued fatigability. She presents today where she has started walking half mile daily, is becoming more conditioned. She is working out in her flower garden and dragging the garden hose all over the place . She is very pleased with her noted improvement. With addition of amlodipine she has noted some mild dependent edema, she continues on daily diuretic (initiated May 2022 for hospitalization due to shortness of breath). Overall patient is pleased with current state of cardiovascular health. At this time there are no indications for additional cardiovascular testing or need for medication changes. History of Present Illness The patient states she has been generally doing well since the last visit. Comorbid Illnesses: hypertension. Symptoms: denies chest pain at rest, denies exertional chest pain, denies dyspnea, improved fatigue, improved exercise intolerance, denies palpitations, denies edema, denies orthopnea, denies dizziness and denies orthostatic dizziness. Disease Monitoring: Surgical History Problems History of Appendectomy History of Cataract surgery History of Colonoscopy History of Hip replacement History of Thymectomy History of Tumor excision Current Meds Medication NameInstruction amLODIPine Besylate 2.5 MG Oral TabletTake 1 tablet twice daily Aspirin 81 MG Oral Tablet Delayed ReleaseTAKE 1 TABLET DAILY. Atorvastatin Calcium 10 MG Oral TabletTAKE 1 TABLET AT BEDTIME. Citalopram Hydrobromide 20 MG Oral TabletTAKE 1 TABLET DAILY. diazePAM 5 MG Oral TabletTAKE 1 TABLET 3 TIMES DAILY NEEDED. Furosemide 40 MG Oral TabletTAKE 1 TABLET DAILY. Magnesium Oxide 400 MG Oral TabletTAKE 1 TABLET DAILY. Valsartan 160 MG Oral TabletTake 1 tablet twice daily Allergies Medication No Known Drug Allergies Recorded By: Danisha Bueno; 08/22/2022 11:38:50 AM Social History Problems Consumes alcohol occasionally (V49.89) (Z78.9) Former smoker (V15.82) (Z87.891) 40-50 years ago No caffeine use No illicit drug use Review of Systems Constitutional: not feeling tired. Cardiovascular: no chest pain, no palpitations and no lower extremity edema. Respiratory: no shortness of breath during exertion, no orthopnea and no PND. Vitals Vital Signs Recorded: 07Nov2022 10:45AM Heart Rate64, R Radial [id number], LUE, Sitting Oeerocssd83, LUE, Sitting Height5 ft 3 in Nmmhir307 lb BMI Ywdfsheecg13.15 kg/m2 BSA Calculated1.67 Tobacco Useb) No Falls Screening (Age 18+)a) No falls within the last yea (more content not included)... Normal qunb Tobacco Screening.on 023 Fall risk assessment a) No falls within the last year [facility] [employer] bobby 250 DO Work Phone: Tobacco use status [facility] b) No -[facility] [employer] 250 DO Work Phone: Alanine aminotransferase [En zymatic activity/volume] in Serum or PlasmaOrdered By: Blue Navarro on 08-29-2022 ALT [Catalytic activity/Vol] 13 U/L 7-52 [facility] Basophils Auto (Bld) [#/Vol] Ordered By: Blue Navarro on 08-29-2022 Basophils (Bld) [#/Vol] 0.0 10*3/uL 0.0-0.2 [facility] Basophils/100 WBC Auto (Bld) Ordered By: Blue Navarro on 08-29-2022 Basophils/100 WBC (Bld) 0.4 % . [facility] Calcium [Mass/volume] in Ser um or PlasmaOrdered By: Shanna Caldera on 08-29-2022 Calcium [Mass/Vol] 9.2 mg/dL 8.6-10.3 [facility] Carbon dioxide, total [Moles /volume] in Serum or PlasmaOrdered By: Shanna Caldera on 08-29-2022 CO2 [Moles/Vol] 36.9 mmol/L 21.0-31.0 [facility] Chloride [Moles/volume] in S mason or PlasmaOrdered By: Shanna Caldera on 08-29-2022 Chloride [Moles/Vol] 98 mmol/L 98-107 [facility] Cholesterol [Mass/volume] in Serum or PlasmaOrdered By: Blue Navarro on 08-29-2022 Cholesterol [Mass/Vol] 199 mg/dL 140-200 [facility] Comment on above: Chol less than 200 m g/dl low riskChol 201-239 mg/dl borderline riskChol 240 mg/dl and greater high risk Cholesterol in LDL Calc [Mas s/Vol]Ordered By: Blue Navarro on 08-29-2022 Cholesterol in LDL [Mass/Vol] 89 mg/dL 0-100 [facility] Comment on above: LDL ATP III CLASSIFI CATIONLDL less than 100 mg/dL OptimalLDL 100-129 mg/dL Near or above optimalLDL 130-159 mg/dL Borderline highLDL 160-189 mg/dL HighLDL greater than 189 mg/dL Very high Cholesterol in VLDL Calc [Ma ss/Vol]Ordered By: Blue Navarro on 08-29-2022 Cholesterol in VLDL [Mass/Vol] 32 mg/dL [facility] Creatinine [Mass/volume] in Serum or PlasmaOrdered By: Shanna Caldera on 08-29-2022 Creatinine [Mass/Vol] 0.70 mg/dL 0.60-1.20 [facility] Eosinophils Auto (Bld) [#/Vo l]Ordered By: Blue Navarro on 08-29-2022 Eosinophils (Bld) [#/Vol] 0.1 10*3/uL 0.0-0.45 [facility] Eosinophils/100 WBC Auto (Bl d)Ordered By: Blue Navarro on 08-29-2022 Eosinophils/100 WBC (Bld) 1.9 % . [facility] Erythrocyte distribution wid th Auto (RBC) [Ratio]Ordered By: Blue Navarro on 08-29-2022 Erythrocyte distribution width (RBC) [Ratio] 13.8 % 11.9-15.3 [facility] Glucose [Mass/volume] in Ser um or PlasmaOrdered By: Shanna Caldera on 08-29-2022 Glucose [Mass/Vol] 102 mg/dL 70-100 [facility] Comment on above: ADA recommended refe rence rangeRandom Glucose Reference Range is dependent on time and content of last meal. Glucose of more than 200 mg/dL in a nonstressed, ambulatory subject supports the diagnosis of Diabetes Mellitus. Glucose mean value [Mass/vol ume] in Blood Estimated from glycated hemoglobinOrdered By: Blue Navarro on 08-29-2022 Average glucose Estimated from glycated hemoglobin (Bld) [Mass/Vol] 148 mg/dL [facility] Hematocrit Auto (Bld) [Volum e fraction]Ordered By: Blue Navarro on 08-29-2022 Hematocrit (Bld) [Volume fraction] 41.4 % 34.0-46.4 [facility] Hemoglobin A1c percentageOrd ered By: Blue Navarro on 08-29-2022 HbA1c (Bld) [Mass fraction] 6.8 % 4.3-5.6 [facility] Comment on above: Increased risk for d iabetes: 5.7 - 6.4diabetes: >6.4glycemic control for adults with diabetes: <7.0 Hemoglobin [Mass/volume] in BloodOrdered By: Blue Navarro on 08-29-2022 Hemoglobin (Bld) [Mass/Vol] 13.3 g/dL 11.8-15.4 [facility] Laboratory - Chemistry and C hemistry - challengeOrdered By: Shanna Caldera on 08-29-2022 GFR/1.73 sq M.predicted MDRD (S/P/Bld) [Vol rate/Area] mL/min/{1.73_m2} [facility] Leukocytes [#/volume] correc aleksey for nucleated erythrocytes in Blood by Automated counOrdered By: Blue Navarro on 08-29-2022 WBC corrected for nucl RBC Auto (Bld) [#/Vol] 5.6 10*3/uL 3.8-11.6 [facility] Lymphocytes Auto (Bld) [#/Vo l]Ordered By: Blue Navarro on 08-29-2022 Lymphocytes (Bld) [#/Vol] 2.5 10*3/uL 1.00-4.8 [facility] Lymphocytes/100 WBC Auto (Bl d)Ordered By: Blue Navarro on 08-29-2022 Lymphocytes/100 WBC (Bld) 45.0 % . [facility] MCH Auto (RBC) [Entitic mass ]Ordered By: Blue Navarro on 08-29-2022 MCH (RBC) [Entitic mass] 28.6 pg 24.7-34.3 [facility] MCHC Auto (RBC) [Mass/Vol]Or dered By: Blue Navarro on 08-29-2022 MCHC (RBC) [Mass/Vol] 32.2 g/dL 32.0-35.0 [facility] MCV Auto (RBC) [Entitic vol] Ordered By: Blue Navarro on 08-29-2022 MCV (RBC) [Entitic vol] 88.9 fL 80-100 [facility] Monocytes Auto (Bld) [#/Vol] Ordered By: Blue Navarro on 08-29-2022 Monocytes (Bld) [#/Vol] 0.4 10*3/uL 0.0-0.8 [facility] Monocytes/100 WBC Auto (Bld) Ordered By: Blue Navarro on 08-29-2022 Monocytes/100 WBC (Bld) 7.6 % . [facility] Natriuretic peptide B [Mass/ Vol]Ordered By: Blue Navarro on 08-29-2022 Natriuretic peptide B (Bld) [Mass/Vol] 147.0 pg/mL 5-100 [facility] Neutrophils Auto (Bld) [#/Vo l]Ordered By: Blue Navarro on 08-29-2022 Neutrophils (Bld) [#/Vol] 2.5 10*3/uL 1.8-7.7 [facility] Neutrophils/100 WBC Auto (Bl d)Ordered By: Blue Navarro on 08-29-2022 Neutrophils/100 WBC (Bld) 45.1 % . [facility] No Panel InformationOrdered By: Shanna Caldera on 08-29-2022 Pharmacy Creatinine Clearance (Chem N/A [facility] No Panel Informationon 08-29 > 60.0 Normal [facility] bobby 250 DO Work Phone: 8.9\S\8.9 Normal 6.0-15.0 [facility] [employer]obby 250 DO Work Phone: 9.2\S\9.2 Normal 8.6-10.3 [facility] [employer]obby 250 DO Work Phone: Comment on above: PERFORMED BY:[facility] [place] [id number] [place], [place] [id number] MEDICAL DIRECTORBARBARA DOWNING M.D. 36.9\S\36.9 above high threshold 21.0-31.0 [facility] [employer]obby 250 DO Work Phone: 98\S\98 Normal 98-107 [facility] [employer]obby 250 DO Work Phone: 3.8\S\3.8 Normal 3.5-5.1 [facility] [employer] 250 DO Work Phone: [phone] 140\S\140 Normal 136-145 [facility] [employer]obby 250 DO Work Phone: 0.70\S\0.70 Normal 0.60-1.20 [facility] [employer]obby 250 DO Work Phone: 20\S\20 Normal 7-25 [facility] [employer]obby 250 DO Work Phone: 102\S\102 above high threshold 70-100 -[facility] [employer]obby 250 DO Work Phone: Comment on above: Random Glucose Refer ence Range is dependent on time and content of last meal. Glucose of more than 200 mg/dL in a nonstressed, ambulatory subject supports the diagnosis of Diabetes Mellitus. ADA recommended reference range Nucleated erythrocytes [Pres ence] in Blood by Automated countOrdered By: Blue Navarro on 08-29-2022 Nucleated RBC Auto Ql (Bld) 0.1 /100{WBC} 0-0.5 [facility] Platelet mean volume Auto (B ld) [Entitic vol]Ordered By: Blue Navarro on 08-29-2022 Platelet mean volume (Bld) [Entitic vol] 8.7 fL 6.3-10.7 [facility] Platelets Auto (Bld) [#/Vol] Ordered By: Blue Navarro on 08-29-2022 Platelets (Bld) [#/Vol] 163 10*3/uL 150-450 [facility] Potassium [Moles/volume] in Serum or PlasmaOrdered By: Shanna Caldera on 08-29-2022 Potassium [Moles/Vol] 3.8 mmol/L 3.5-5.1 [facility] RBC Auto (Bld) [#/Vol]Ordere d By: Blue Navarro on 08-29-2022 RBC (Bld) [#/Vol] 4.66 10*6/uL 3.60-5.00 [facility] Radiologyon 08-29-2022 XR Chest 2 Views Normal -[facility] [employer]obby 250 DO Work Phone: Serum or plasma anion gap de terminationOrdered By: Shanna Caldera on 08-29-2022 Anion gap [Moles/Vol] 8.9 mmol/L 6.0-15.0 [facility] Serum or plasma high density lipoprotein (HDL) cholesterol measurementOrdered By: Blue Navarro on 08-29-2022 Cholesterol in HDL [Mass/Vol] 77 mg/dL 35-85 [facility] Comment on above: HDL CHOL ATP-III CLA SSIFICATION Cardiovascular RiskHDL > or equal to 60 mg/dL LOWHDL < 40 mg/dL HIGH Serum or plasma total choles terol/high density lipoprotein (HDL) cholesterol mass ratOrdered By: Blue Navarro on 08-29-2022 Cholesterol.total/Chol esterol in HDL [Mass ratio] 2.6 {ratio} <5.0 [facility] Sodium [Moles/volume] in Ser um or PlasmaOrdered By: Shanna Caldera on 08-29-2022 Sodium [Moles/Vol] 140 mmol/L 136-145 [facility] Triglyceride [Mass/volume] i n Serum or PlasmaOrdered By: Blue Navarro on 08-29-2022 Triglyceride [Mass/Vol] 163 mg/dL 0-149 [facility] Comment on above: TRIG ATP III CLASSIF ICATIONTRIG less than 150 mg/dL NormalTRIG 150-199 mg/dL Borderline highTRIG 200-500 mg/dL High TRIG greater than 500 mg/dL Very highStandard traceable to the Center for Disease Conrtrol and Prevention (CDC) test method. 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 2271 dual-chamber permanent pacemaker Implant date May device interrogation Body mass index (BMI) of 24.0 to 24.9 in adult (V85.1) (Z68.24) Orders Cardiac pacemaker Xray Chest 2 View PA + Lateral; Status:Hold For - Scheduling; Requested for:22Aug2022; Radiologist to Determine Optimal Study : Y What are the patient's signs and symptoms? : new PPM implant Complete heart block Renew: Atorvastatin Calcium 10 MG Oral Tablet; TAKE 1 TABLET AT BEDTIME Renew: Magnesium Oxide 400 (240 Mg) MG Oral Tablet; TAKE 1 TABLET BY MOUTH TWICE DAILY Hypertension, benign, Stress-induced cardiomyopathy Start: Valsartan 160 MG Oral Tablet; TAKE 1 TABLET Daily Basic Metabolic Panel; Status:Active; Requested for:29Aug2022; Stress-induced cardiomyopathy Echocardiogram; Status:Hold For - Scheduling; Requested for:22Aug2022; Unlinked Stop: Lisinopril 30 MG Oral Tablet Patient Instructions Please bring all medicines, vitamins, and herbal supplements with you when you come to the office. Prescriptions will not be filled unless you are compliant with your follow up appointments or have a follow up appointment scheduled as per instruction of your physician. Refills should be requested at the time of your visit. PLAN: Through informed decision making process incorporating patients unique circumstances, the following treatment plan will be initiated: 1. Prescription drug management of cardiovascular medication for efficacy, adherence to treatment, side effect assessment and polypharmacy. Current treatment clinically warranted and to continue without modifications. - Stop lisinopril - Begin valsartan 160mg daily 2. Chem6 in one week 3. Echocardiogram f/u NICM 4. CXR pa/lat f/u PPM implant 5. Return for follow-up; in the interim, contact the office if new symptoms arise. 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 Patient presents to the office ambulatory with cane and steady gait. This is initial in clinic follow-up at [facility]. May 2022 presented to [facility] due to weakness. She was noted to have torsades and complete heart block. Cardiac catheterization revealed minimal coronary artery disease and evidence of Takotsubo cardiomyopathy with a EF 40%. On May 06, 2022 uneventful dual-chamber permanent pacemaker implant by Dr. Zhao. She was then readmitted shortly after discharge due to shortness of breath and Lasix was added to medical regimen. She is now 3 months post device implant. Device interrogation last month unremarkable. She did not complete 3-month chest x-ray. She reports not being able to take carvedilol due to myasthenia gravis. Primary care physician has been adjusting lisinopril due to hypertension. Recently increased 1 week ago to 30 mg. Patient presents today as an extremely pleasant 82-year-old female. Prior to hospitalization she was able to walk 1 mile daily without complaints. Currently feels just too weak and tired to do anything. She denies any orthopnea or PND. Had no complaints ambulating in from the parking lot. Denies any type of palpitations. July 2022 device interrogation V paced 70%. May 12, 2022 V paced QRS 136. Knik QRS unknown. Takotsubo cardiomyopathy EF 40%. Current treatment MANOJ inhibitor and diuretic. Hypertension. We will change lisinopril over to valsartan, likely will initiate Entresto after echocardiogram reevaluated. History of Present Illness The patient states she has been generally stable since the last visit. Comorbid Illnesses: hypertension and hyperlipidemia. Symptoms: denies chest pain at rest, denies exertional chest pain, worsened dyspnea, worsened fatigue, worsened exercise intolerance, denies palpitations, denies edema, denies orthopnea, denies dizziness and denies orthostatic dizziness. Associated symptoms: no syncope. Her symptoms do not limit her activities. Disease Monitoring: The patient has had a stable weight. Medications: the patient is adherent with her medication regimen. She denies medication side effects. Surgical History Problems History of Appendectomy History of Cataract surgery History of Colonoscopy History of Hip replacement History of Thymectomy History of Tumor excision Current Meds INFUSD (more content not included)... Normal qunb Tobacco Screening.on 023 Adult depression screening assessment No [facility] [employer] DO Work Phone: Fall risk assessment a) No falls within the last year [facility] [employer] DO Work Phone: Tobacco use status CPHS b) No [facility] [employer] DO Work Phone: Creatinine and Glomerular fi ltration rate.predicted panel (S/P/Bld)Ordered By: Julio Schreiber on 05-13-2022 Creatinine [Mass/Vol] 0.76 mg/dL 0.44-1.03 [facility] Estimated glomerular filtrat ion rate (GFR) non- AmericanOrdered By: Julio Schreiber on 05-13-2022 GFR/1.73 sq M.predicted among non-blacks MDRD (S/P/Bld) [Vol rate/Area] > 60 mL/Min [facility] Laboratory - Chemistry and C hemistry - challengeOrdered By: Julio Schreiber on 05-13-2022 Magnesium [Mass/Vol] 2.0 mg/dL 1.6-2.6 [facility] No Panel InformationOrdered By: Julio Schreiber on 05-13-2022 Estimated GFR () > 60 mL/Min [facility] Comment on above: GFR estimated refere nce range: According to KDOQI guidelines, <60 ml/min/1.73m2 is sufficient to diagnose a patient with chronic kidney disease. Pharmacy Creatinine Clearance (Chem 47.32 [facility] Serum or plasma anion gap de terminationOrdered By: Julio Schreiber on 05-13-2022 Anion gap [Moles/Vol] 10.4 mmol/L 6.0-15.0 [facility] Serum or plasma calcium neyda urement (mass/volume)Ordered By: Julio Schreiber on 05-13-2022 Calcium [Mass/Vol] 8.6 mg/dL 8.2-10.2 [facility] Serum or plasma chloride silvino surement (moles/volume)Ordered By: Julio Schreiber on 05-13-2022 Chloride [Moles/Vol] 98 mmol/L 95-114 [facility] Serum or plasma glucose neyda urement (mass/volume)Ordered By: Julio Schreiber on 05-13-2022 Glucose [Mass/Vol] 134 mg/dL 70-100 [facility] Comment on above: ADA recommended refe rence rangeRandom Glucose Reference Range is dependent on time and content of last meal. Glucose of more than 200 mg/dL in a nonstressed, ambulatory subject supports the diagnosis of Diabetes Mellitus. Serum or plasma potassium me asurement (moles/volume)Ordered By: Julio Schreiber on 05-13-2022 Potassium [Moles/Vol] 3.7 mmol/L 3.5-5.1 [facility] Serum or plasma sodium measu rement (moles/volume)Ordered By: Julio Schreiber on 05-13-2022 Sodium [Moles/Vol] 136 mmol/L 136-146 [facility] Serum or plasma total carbon dioxide measurement (moles/volume)Ordered By: Julio Schreiber on 05-13-2022 CO2 [Moles/Vol] 31.3 mmol/L 22.0-30.0 [facility] Serum or plasma urea nitroge n measurement (mass/volume)Ordered By: Julio Schreiber on 05-13-2022 Urea nitrogen [Mass/Vol] 10 mg/dL 02-25 [facility] Activated partial thrombopla stin time (aPTT) in platelet poor plasma by coagulation aOrdered By: Parish Larkin on 05-12-2022 aPTT Coag (PPP) [Time] 31.0 s 25.1-36.5 [facility] Albumin [Mass/volume] in Ser um or PlasmaOrdered By: Parish Larkin on 05-12-2022 Albumin [Mass/Vol] 3.2 g/dL 3.2-5.5 [facility] Automated erythrocytes count in urine sediment (number/area)Ordered By: Parish Larkin on 05-12-2022 RBC Auto (Urine sed) [#/Area] 1-2 [HPF] 0-4 [facility] Automated leukocytes count i n urine sediment (number/area)Ordered By: Parish Larkin on 05-12-2022 WBC Auto (Urine sed) [#/Area] 0-1 [HPF] 0-4 [facility] Basophils Auto (Bld) [#/Vol] Ordered By: Parish Larkin on 05-12-2022 Basophils (Bld) [#/Vol] 0.1 10*3/uL 0.0-0.2 [facility] Basophils/100 WBC Auto (Bld) Ordered By: Parish Larkin on 05-12-2022 Basophils/100 WBC (Bld) 1.2 % . [facility] Bilirubin Test strip Ql (U)O rdered By: Parish Larkin on 05-12-2022 Bilirubin Ql (U) Negative Negative [facility] COVID CepheidOrdered By: Radha vazqueznder Chaya on 05-12-2022 SARS-CoV-2 (COVID-19) Ab IA Ql Negative Negative [facility] Comment on above: This is a duplicate Cepheid Xpert Xpress CoV-2/Flu/RSV Plus RNA by RT-PCR result to be used for statistical tracking purpose only. SARS-CoV-2 (COVID-19) RNA JACKSON+probe Ql (Unsp spec) [facility] SARS-CoV-2 (COVID-19) RNA JACKSON+probe Ql (Unsp spec) [facility] Color Auto (U)Ordered By: Oni Larkin on 05-12-2022 Color (U) Yellow Yellow [facility] Creatinine and Glomerular fi ltration rate.predicted panel (S/P/Bld)Ordered By: Parish Larkin on 05-12-2022 Creatinine [Mass/Vol] 0.85 mg/dL 0.44-1.03 [facility] Eosinophils Auto (Bld) [#/Vo l]Ordered By: Parish Larkin on 05-12-2022 Eosinophils (Bld) [#/Vol] 0.2 10*3/uL 0.0-0.45 [facility] Eosinophils/100 WBC Auto (Bl d)Ordered By: Parish Larkin on 05-12-2022 Eosinophils/100 WBC (Bld) 2.3 % . [facility] Erythrocyte distribution wid th Auto (RBC) [Ratio]Ordered By: Parish Larkin on 05-12-2022 Erythrocyte distribution width (RBC) [Ratio] 13.3 % 11.9-15.3 [facility] Estimated glomerular filtrat ion rate (GFR) non- AmericanOrdered By: Parish Larkin on 05-12-2022 GFR/1.73 sq M.predicted among non-blacks MDRD (S/P/Bld) [Vol rate/Area] > 60 mL/Min [facility] Globulin Calc (S) [Mass/Vol] Ordered By: Parish Larkin on 05-12-2022 Globulin (S) [Mass/Vol] 3.1 g/dL [facility] Hematocrit Auto (Bld) [Volum e fraction]Ordered By: Parish Larkin on 05-12-2022 Hematocrit (Bld) [Volume fraction] 37.3 % 34.0-46.4 [facility] Hemoglobin [Mass/volume] in BloodOrdered By: Parish Larkin on 05-12-2022 Hemoglobin (Bld) [Mass/Vol] 11.9 g/dL 11.8-15.4 [facility] Ketones Auto test strip (U) [Mass/Vol]Ordered By: Parish Larkin on 05-12-2022 Ketones (U) [Mass/Vol] Negative Negative Fi [facility] Laboratory - Chemistry and C hemistry - challengeOrdered By: Parish Larkin on 05-12-2022 Magnesium [Mass/Vol] 2.2 mg/dL 1.6-2.6 [facility] Natriuretic peptide B (Bld) [Mass/Vol] 1499.0 pg/mL 5-100 [facility] Laboratory - CoagulationOrde red By: Parish Larkin on 05-12-2022 PT Coag (PPP) [Time] 12.2 s 9.0-12.9 [facility] Laboratory - UrinalysisOrder ed By: Parish Larkin on 05-12-2022 Hyaline casts LM Ql (Urine sed) 0-8 [LPF] 0-8 [facility] Leukocytes [#/volume] correc aleksey for nucleated erythrocytes in Blood by Automated counOrdered By: Parish Larkin on 05-12-2022 WBC corrected for nucl RBC Auto (Bld) [#/Vol] 9.0 10*3/uL 3.8-11.6 [facility] Lymphocytes Auto (Bld) [#/Vo l]Ordered By: Parish Larkin on 05-12-2022 Lymphocytes (Bld) [#/Vol] 3.1 10*3/uL 1.00-4.8 [facility] Lymphocytes/100 WBC Auto (Bl d)Ordered By: Parish Larkin on 05-12-2022 Lymphocytes/100 WBC (Bld) 34.6 % . [facility] MCH Auto (RBC) [Entitic mass ]Ordered By: Parish Larkin on 05-12-2022 MCH (RBC) [Entitic mass] 28.7 pg 24.7-34.3 [facility] MCHC Auto (RBC) [Mass/Vol]Or dered By: Parish Larkin on 05-12-2022 MCHC (RBC) [Mass/Vol] 32.0 g/dL 32.0-35.0 [facility] MCV Auto (RBC) [Entitic vol] Ordered By: Parish Larkin on 05-12-2022 MCV (RBC) [Entitic vol] 89.7 fL 80-100 [facility] Monocyte distribution width [Entitic volume] in Blood by AutomatedOrdered By: Parish Larkin on 05-12-2022 Monocyte distribution width Auto (Bld) [Entitic vol] 19.79 % 0.00-20.00 [facility] Monocytes Auto (Bld) [#/Vol] Ordered By: Parish Larkin on 05-12-2022 Monocytes (Bld) [#/Vol] 0.5 10*3/uL 0.0-0.8 [facility] Monocytes/100 WBC Auto (Bld) Ordered By: Parish Larkin on 05-12-2022 Monocytes/100 WBC (Bld) 5.3 % . [facility] Neutrophils Auto (Bld) [#/Vo l]Ordered By: Parish Larkin on 05-12-2022 Neutrophils (Bld) [#/Vol] 5.1 10*3/uL 1.8-7.7 [facility] Neutrophils/100 WBC Auto (Bl d)Ordered By: Parish Larkin on 05-12-2022 Neutrophils/100 WBC (Bld) 56.6 % . [facility] Nitrite Test strip Ql (U)Ord ered By: Parish Larkin on 05-12-2022 Nitrite Ql (U) Negative Negative [facility] No Panel InformationOrdered By: Parish Larkin on 05-12-2022 Estimated GFR () > 60 mL/Min [facility] Comment on above: GFR estimated refere nce range: According to KDOQI guidelines, <60 ml/min/1.73m2 is sufficient to diagnose a patient with chronic kidney disease. Pharmacy Creatinine Clearance (Chem 44.54 [facility] Nucleated erythrocytes [Pres ence] in Blood by Automated countOrdered By: Parish Larkin on 05-12-2022 Nucleated RBC Auto Ql (Bld) 0.1 /100{WBC} 0-0.5 [facility] Platelet adequacy [Presence] in Blood by Light microscopyOrdered By: Parish Larkin on 05-12-2022 Platelets LM Ql (Bld) Normal Normal [facility] Platelet mean volume Auto (B ld) [Entitic vol]Ordered By: Parish Larkin on 05-12-2022 Platelet mean volume (Bld) [Entitic vol] 8.7 fL 6.3-10.7 [facility] Platelet morphology finding [Identifier] in BloodOrdered By: Parish Larkin on 05-12-2022 Platelet morphology finding Nom (Bld) Normal Normal [facility] Platelet poor plasma interna tional normalized ratio (INR) by coagulation assay (relatOrdered By: Parish Larkin on 05-12-2022 INR Coag (PPP) [Relative time] 1.1 {INR} [facility] Comment on above: INR Therapeutic Rang e A) Pre- and Peroperative OAT started two weeks before surgery. NOT HIP SURGERY: 1.5 - 2.5 HIP SURGERY: 2 - 3B) Primary and secondary prevention of venous THROMBOSIS: 2 - 3C) Active venous thrombosis, pulmonary embolismand prevention of recurrent venous thrombosis: 2 - 3D) Prevention of arterial thromboembolismincluding patients with mechanical heart valves: 3 - 4.5 Platelets Auto (Bld) [#/Vol] Ordered By: Parish Larkin on 05-12-2022 Platelets (Bld) [#/Vol] 278 10*3/uL 150-450 [facility] Polychromasia [Presence] in Blood by Light microscopyOrdered By: Parish Larkin on 05-12-2022 Polychromasia LM Ql (Bld) Slight [facility] Protein Auto test strip (U) [Mass/Vol]Ordered By: Parish Larkin on 05-12-2022 Protein (U) [Mass/Vol] Negative Negative Fi [facility] Protein [Mass/volume] in Ser um or PlasmaOrdered By: Parish Larkin on 05-12-2022 Protein [Mass/Vol] 6.3 g/dL 6.1-7.9 [facility] RBC Auto (Bld) [#/Vol]Ordere d By: Parish Larkin on 05-12-2022 RBC (Bld) [#/Vol] 4.16 10*6/uL 3.60-5.00 [facility] RBC morphologyOrdered By: Oni Larkin on 05-12-2022 RBC morphology finding Nom (Bld) N/A [facility] Serum or plasma alanine lang otransferase measurement without P-5'-P (enzymatic activiOrdered By: Parish Larkin on 05-12-2022 ALT No additional P-5'-P [Catalytic activity/Vol] 23 U/L 10-60 [facility] Serum or plasma albumin/glob ulin mass ratioOrdered By: Parish Larkin on 05-12-2022 Albumin/Globulin [Mass ratio] 1.0 {ratio} [facility] Serum or plasma alkaline tavon sphatase measurement (enzymatic activity/volume)Ordered By: Parish Larkin on 05-12-2022 ALP [Catalytic activity/Vol] 64 U/L 32-92 [facility] Serum or plasma anion gap de terminationOrdered By: Parish Larkin on 05-12-2022 Anion gap [Moles/Vol] 14.2 mmol/L 6.0-15.0 [facility] Serum or plasma aspartate am inotransferase measurement (enzymatic activity/volume)Ordered By: Parish Larkin on 05-12-2022 AST [Catalytic activity/Vol] 23 U/L 10-42 [facility] Serum or plasma calcium neyda urement (mass/volume)Ordered By: Parish Larkin on 05-12-2022 Calcium [Mass/Vol] 8.7 mg/dL 8.2-10.2 [facility] Serum or plasma chloride silvino surement (moles/volume)Ordered By: Parish Larkin on 05-12-2022 Chloride [Moles/Vol] 97 mmol/L 95-114 [facility] Serum or plasma glucose neyda urement (mass/volume)Ordered By: Parish Larkin on 05-12-2022 Glucose [Mass/Vol] 140 mg/dL 70-100 [facility] Comment on above: ADA recommended refe rence rangeRandom Glucose Reference Range is dependent on time and content of last meal. Glucose of more than 200 mg/dL in a nonstressed, ambulatory subject supports the diagnosis of Diabetes Mellitus. Serum or plasma potassium me asurement (moles/volume)Ordered By: Parish Larkin on 05-12-2022 Potassium [Moles/Vol] 4.2 mmol/L 3.5-5.1 [facility] Serum or plasma sodium measu rement (moles/volume)Ordered By: Parish Larkin on 05-12-2022 Sodium [Moles/Vol] 136 mmol/L 136-146 [facility] Serum or plasma total biliru bin measurement (mass/volume)Ordered By: Parish Larkin on 05-12-2022 Bilirubin [Mass/Vol] 0.5 mg/dL 0.3-1.2 [facility] Serum or plasma total carbon dioxide measurement (moles/volume)Ordered By: Parish Larkin on 05-12-2022 CO2 [Moles/Vol] 29.0 mmol/L 22.0-30.0 [facility] Serum or plasma urea nitroge n measurement (mass/volume)Ordered By: Parish Larkin on 05-12-2022 Urea nitrogen [Mass/Vol] 13 mg/dL 9- [facility] Specific gravity Auto test s trip (U) [Rel density]Ordered By: Parish Larkin on 05-12-2022 Specific gravity (U) [Rel density] 1.009 1.001-1.030 [facility] Squamous epithelial cells de tection in urine sediment by light microscopyOrdered By: Parish Larkin on 05-12-2022 Epithelial cells.squamous LM Ql (Urine sed) 5-9 [HPF] 0-2 [facility] Troponin I.cardiac [Mass/vol ume] in Serum or Plasma by High sensitivity methodOrdered By: Parish Larkin on 05-12-2022 Troponin I.cardiac High sensitivity method [Mass/Vol] 133 pg/mL 0-15 [facility] Comment on above: Results calledat 120 8 on 05/12/22 Urine bacteria detection by automated methodOrdered By: Parish Larkin on 05-12-2022 Bacteria Auto Ql (U) None seen None Seen [facility] Urine clarity by refractomet ry automatedOrdered By: Parish Larkin on 05-12-2022 Clarity Refractometry automated (U) Clear Clear [facility] Urine glucose measurement by automated test strip (mass/volume)Ordered By: Parish Larkin on 05-12-2022 Glucose Auto test strip (U) [Mass/Vol] Normal mg/dL Normal [facility] Urine hemoglobin detection b y automated test stripOrdered By: Parish Larkin on 05-12-2022 Hemoglobin Auto test strip Ql (U) Negative Negative [facility] Urine leukocyte esterase det ection by automated test stripOrdered By: Parish Larkin on 05-12-2022 Leukocyte esterase Auto test strip Ql (U) 1+ Negative [facility] Urobilinogen Auto test strip (U) [Mass/Vol]Ordered By: Parish Larkin on 05-12-2022 Urobilinogen (U) [Mass/Vol] Normal mg/dL Normal [facility] WBC Auto (Bld) [#/Vol]Ordere d By: Parish Larkin on 05-12-2022 WBC (Bld) [#/Vol] 9.0 10*3/uL 3.8-11.6 [facility] pH Auto test strip (U)Ordere d By: Parish Larkin on 05-12-2022 pH (U) 8.0 [pH] 5.0-9.0 [facility] Basophils Auto (Bld) [#/Vol] Ordered By: Chandu Daley on 05-09-2022 Basophils (Bld) [#/Vol] 0.0 10*3/uL 0.0-0.2 [facility] Basophils/100 WBC Auto (Bld) Ordered By: Chandu Daley on 05-09-2022 Basophils/100 WBC (Bld) 0.8 % . [facility] Creatinine and Glomerular fi ltration rate.predicted panel (S/P/Bld)Ordered By: Chandu Daley on 05-09-2022 Creatinine [Mass/Vol] 0.80 mg/dL 0.44-1.03 [facility] Eosinophils Auto (Bld) [#/Vo l]Ordered By: Chandu Daley on 05-09-2022 Eosinophils (Bld) [#/Vol] 0.1 10*3/uL 0.0-0.45 [facility] Eosinophils/100 WBC Auto (Bl d)Ordered By: Chandu Daley on 05-09-2022 Eosinophils/100 WBC (Bld) 2.4 % . [facility] Erythrocyte distribution wid th Auto (RBC) [Ratio]Ordered By: Chandu Daely on 05-09-2022 Erythrocyte distribution width (RBC) [Ratio] 13.7 % 11.9-15.3 [facility] Estimated glomerular filtrat ion rate (GFR) non- AmericanOrdered By: Chandu Daley on 05-09-2022 GFR/1.73 sq M.predicted among non-blacks MDRD (S/P/Bld) [Vol rate/Area] > 60 mL/Min [facility] Hematocrit Auto (Bld) [Volum e fraction]Ordered By: Chandu Daley on 05-09-2022 Hematocrit (Bld) [Volume fraction] 35.6 % 34.0-46.4 [facility] Hemoglobin [Mass/volume] in BloodOrdered By: Chandu Daley on 05-09-2022 Hemoglobin (Bld) [Mass/Vol] 11.5 g/dL 11.8-15.4 [facility] Leukocytes [#/volume] correc aleksey for nucleated erythrocytes in Blood by Automated counOrdered By: Chandu Daley on 05-09-2022 WBC corrected for nucl RBC Auto (Bld) [#/Vol] 5.5 10*3/uL 3.8-11.6 [facility] Lymphocytes Auto (Bld) [#/Vo l]Ordered By: Chandu Daley on 05-09-2022 Lymphocytes (Bld) [#/Vol] 1.9 10*3/uL 1.00-4.8 [facility] Lymphocytes/100 WBC Auto (Bl d)Ordered By: Chandu Daley on 05-09-2022 Lymphocytes/100 WBC (Bld) 35.1 % . [facility] MCH Auto (RBC) [Entitic mass ]Ordered By: Chandu Daley on 05-09-2022 MCH (RBC) [Entitic mass] 28.9 pg 24.7-34.3 [facility] MCHC Auto (RBC) [Mass/Vol]Or dered By: Chandu Daley on 05-09-2022 MCHC (RBC) [Mass/Vol] 32.4 g/dL 32.0-35.0 [facility] MCV Auto (RBC) [Entitic vol] Ordered By: Chandu Daley on 05-09-2022 MCV (RBC) [Entitic vol] 89.2 fL 80-100 [facility] Monocytes Auto (Bld) [#/Vol] Ordered By: Chandu Daley on 05-09-2022 Monocytes (Bld) [#/Vol] 0.5 10*3/uL 0.0-0.8 [facility] Monocytes/100 WBC Auto (Bld) Ordered By: Chandu Daley on 05-09-2022 Monocytes/100 WBC (Bld) 8.9 % . [facility] Neutrophils Auto (Bld) [#/Vo l]Ordered By: Chandu Daley on 05-09-2022 Neutrophils (Bld) [#/Vol] 2.9 10*3/uL 1.8-7.7 [facility] Neutrophils/100 WBC Auto (Bl d)Ordered By: Chandu Daley on 05-09-2022 Neutrophils/100 WBC (Bld) 52.8 % . [facility] No Panel InformationOrdered By: Chandu Daley on 05-09-2022 Estimated GFR () > 60 mL/Min [facility] Comment on above: GFR estimated refere nce range: According to KDOQI guidelines, <60 ml/min/1.73m2 is sufficient to diagnose a patient with chronic kidney disease. Pharmacy Creatinine Clearance (Chem 48.76 [facility] Nucleated erythrocytes [Pres ence] in Blood by Automated countOrdered By: Chandu Daley on 05-09-2022 Nucleated RBC Auto Ql (Bld) 0.1 /100{WBC} 0-0.5 [facility] Platelet mean volume Auto (B ld) [Entitic vol]Ordered By: Chandu Daley on 05-09-2022 Platelet mean volume (Bld) [Entitic vol] 8.5 fL 6.3-10.7 [facility] Platelets Auto (Bld) [#/Vol] Ordered By: Chandu Daley on 05-09-2022 Platelets (Bld) [#/Vol] 212 10*3/uL 150-450 [facility] RBC Auto (Bld) [#/Vol]Ordere d By: Chandu Daley on 05-09-2022 RBC (Bld) [#/Vol] 3.99 10*6/uL 3.60-5.00 [facility] [facility] Serum or plasma anion gap de terminationOrdered By: Chandu Daley on 05-09-2022 Anion gap [Moles/Vol] 10.7 mmol/L 6.0-15.0 [facility] Serum or plasma calcium neyda urement (mass/volume)Ordered By: Chandu Daley on 05-09-2022 Calcium [Mass/Vol] 8.4 mg/dL 8.2-10.2 [facility] Serum or plasma chloride silvino surement (moles/volume)Ordered By: Chandu Daley on 05-09-2022 Chloride [Moles/Vol] 98 mmol/L 95-114 [facility] Serum or plasma glucose neyda urement (mass/volume)Ordered By: Chandu Daley on 05-09-2022 Glucose [Mass/Vol] 121 mg/dL 70-100 [facility] Comment on above: ADA recommended refe rence rangeRandom Glucose Reference Range is dependent on time and content of last meal. Glucose of more than 200 mg/dL in a nonstressed, ambulatory subject supports the diagnosis of Diabetes Mellitus. Serum or plasma potassium me asurement (moles/volume)Ordered By: Chandu Daley on 05-09-2022 Potassium [Moles/Vol] 4.0 mmol/L 3.5-5.1 [facility] Serum or plasma sodium measu rement (moles/volume)Ordered By: Chandu Daley on 05-09-2022 Sodium [Moles/Vol] 135 mmol/L 136-146 [facility] Serum or plasma total carbon dioxide measurement (moles/volume)Ordered By: Chandu Daley on 05-09-2022 CO2 [Moles/Vol] 30.3 mmol/L 22.0-30.0 [facility] Serum or plasma urea nitroge n measurement (mass/volume)Ordered By: Chandu Daley on 05-09-2022 Urea nitrogen [Mass/Vol] 11 mg/dL 9-23 [facility] WBC Auto (Bld) [#/Vol]Ordere d By: Chandu Daley on 05-09-2022 WBC (Bld) [#/Vol] 5.5 10*3/uL 3.8-11.6 [facility] Troponin I.cardiac [Mass/vol ume] in Serum or Plasma by High sensitivity methodOrdered By: José Nelson on 05-07-2022 Troponin I.cardiac High sensitivity method [Mass/Vol] 106 pg/mL 0-15 [facility] Comment on above: Results calledat 060 4 on 05/07/22 Activated partial thrombopla stin time (aPTT) in platelet poor plasma by coagulation aOrdered By: Je Ruiz on 05-06-2022 aPTT Coag (PPP) [Time] 26.9 s 25.1-36.5 [facility] - CoagulationOrde red By: Je Ruiz on 05-06-2022 PT Coag (PPP) [Time] 12.1 s 9.0-12.9 [facility] Platelet poor plasma interna tional normalized ratio (INR) by coagulation assay (relatOrdered By: Je Ruiz on 05-06-2022 INR Coag (PPP) [Relative time] 1.1 {INR} [facility] Comment on above: INR Therapeutic Rang e A) Pre- and Peroperative OAT started two weeks before surgery. NOT HIP SURGERY: 1.5 - 2.5 HIP SURGERY: 2 - 3B) Primary and secondary prevention of venous THROMBOSIS: 2 - 3C) Active venous thrombosis, pulmonary embolismand prevention of recurrent venous thrombosis: 2 - 3D) Prevention of arterial thromboembolismincluding patients with mechanical heart valves: 3 - 4.5 TSH DL <= 0.005 mIU/L QnOrde red By: Danika Islas on 05-06-2022 TSH Qn 2.13 m[IU]/L 0.45-5.33 [facility] BNPon 05-05-2022 Natriuretic peptide B (Bld) [Mass/Vol] 5347.0 pg/mL Critically high <=1,800.0 [facility] Comment on above: Performed By: #### B FIRMWARE DEVELOPER, BMP, HSTROPN #### [facility] [address] [place] [address] Dr. Nahomi Lehman CBC AUTO DIFFon 05-05-2022 BASO # 0.0 103/ul Normal 0.0-0.1 [facility] Comment on above: Performed By: #### C BC #### [facility] [address] [place] [address] Dr. Nahomi Lehman Basophils/100 WBC (Bld) 0.2 % Normal 0.2-2.0 [facility] Comment on above: Performed By: #### C BC #### [facility] [address] [place] [address] Dr. Nahomi Lehman EO # 0.0 103/ul Normal 0.0-0.7 [facility] Comment on above: Performed By: #### C BC #### [facility] [address] [place] [address] Dr. Nahomi Lehman Eosinophils/100 WBC (Bld) 0.1 % Critically low 0.9-7.0 [facility] Comment on above: Performed By: #### C BC #### [facility] [address] [place] [address] Dr. Nahomi Lehman Erythrocyte distribution width (RBC) [Ratio] 13.7 % Normal 11.0-15.0 [facility] Comment on above: Performed By: #### C BC #### [facility] [address] [place] [address] Dr. Nahomi Lehman Hematocrit (Bld) [Volume fraction] 37.9 % Normal 36.0-48.0 [facility] Comment on above: Performed By: #### C BC #### [facility] [address] [place] [address] Dr. Nahomi Lehman Hemoglobin (Bld) [Mass/Vol] 12.2 g/dL Normal 12.0-16.0 [facility] Comment on above: Performed By: #### C BC #### [facility] [address] [place] [address] Dr. Nahomi Lehman IG # 0.04 10e3/ul Critically high 0.00-0.03 [facility] Comment on above: Performed By: #### C BC #### [facility] [address] [place] [address] Dr. Nahomi Lehman IG % 0.5 % Normal 0.0-0.5 [facility] Comment on above: Performed By: #### C BC #### [facility] [address] [place] [address] Dr. Nahomi Lehman LYMPH # 1.1 103/ul Critically low 1.2-3.8 [facility] Comment on above: Performed By: #### C BC #### [facility] [address] [place] [address] Dr. Nahomi Lehman Lymphocytes/100 WBC (Bld) 12.5 % Critically low 20.5-60.0 [facility] Comment on above: Performed By: #### C BC #### [facility] [address] [place] [address] Dr. Nahomi Lehman MANUAL DIFF REQ NO Normal [facility] Comment on above: Performed By: #### C BC #### [facility] [address] [place] [address] Dr. Nahomi Lehman MCH (RBC) [Entitic mass] 29.7 pg Normal 26.7-34.0 [facility] Comment on above: Performed By: #### C BC #### [facility] [address] [place] [address] Dr. Nahomi Lehman MCHC (RBC) [Mass/Vol] 32.2 g/dL Normal 29.9-35.2 [facility] Comment on above: Performed By: #### C BC #### [facility] [address] [place] [address] Dr. Nahomi Lehman MCV (RBC) [Entitic vol] 92.2 fL Normal 81.0-99.0 [facility] Comment on above: Performed By: #### C BC #### [facility] [address] [place] [address] Dr. Nahomi Lehman MONO # 0.4 103/ul Normal 0.3-0.8 [facility] Comment on above: Performed By: #### C BC #### [facility] [address] [place] [address] Dr. Nahomi Lehman Monocytes/100 WBC (Bld) 4.5 % Normal 1.7-12.0 [facility] Comment on above: Performed By: #### C BC #### [facility] [address] [place] [address] Dr. Nahomi Lehman NEUT # 7.3 103/ul Critically high 1.4-6.5 [facility] Comment on above: Performed By: #### C BC #### [facility] [address] [place] [address] Dr. Nahomi Lehman Neutrophils/100 WBC (Bld) 82.2 % Critically high 43.0-75.0 [facility] Comment on above: Performed By: #### C BC #### [facility] [address] [place] [address] Dr. Nahomi Lehman Platelet mean volume (Bld) [Entitic vol] 10.8 fL Normal 9.5-13.5 [facility] Comment on above: Performed By: #### C BC #### [facility] [address] [place] [address] Dr. Nahomi Lehman PLT 187 103/ul Normal 150-450 [facility] Comment on above: Performed By: #### C BC #### [facility] [address] [place] [address] Dr. Nahomi Lehman RBC 4.11 106/ul Critically low 4.20-5.40 [facility] Comment on above: Performed By: #### C BC #### [facility] [address] [place] [address] Dr. Nahomi Lehman WBC 8.9 103/ul Normal 4.0-11.0 [facility] Comment on above: Performed By: #### C BC #### [facility] [address] [place] [address] Dr. Nahomi Lehman Covid-19 PCR ([facility])on SARS-CoV-2 (COVID-19) RNA JACKSON+probe Ql (Unsp spec) Not detected Normal NOT DETECTED [facility] Comment on above: Result Comment: When diagnostic testing is negative, the possibility of a false negative should be considered in the context of a patient's recent exposures and the presence of clinical signs and symptoms consistent with SARS-CoV-2. This test is not yet approved or cleared by the [place] FDA. When there are no FDA-approved or cleared tests available, and other criteria are met, FDA can make tests available under an emergency access mechanism called an Emergency Use Authorization (EUA). The EUA for this test is supported by the Compression Molding Machine Tender of Health and Human Service's declaration that circumstances exist to justify the emergency use of in vitro diagnostics for the detection and/or diagnosis of the virus that causes COVID-19. This EUA will remain in effect for the duration of the COVID-19 declaration justifying emergency of IVDs, unless it is terminated or revoked by the FDA (after which the test may no longer be used). Performed By: #### C VDTB #### [facility] [address] [place] [address] Dr. Nahomi Lehman Glucose mean value [Mass/vol ume] in Blood Estimated from glycated hemoglobinOrdered By: José Nelson on 05-05-2022 Average glucose Estimated from glycated hemoglobin (Bld) [Mass/Vol] 143 mg/dL [facility] Hemoglobin A1c percentageOrd ered By: José Nelson on 05-05-2022 HbA1c (Bld) [Mass fraction] 6.6 % 4.3-5.6 [facility] Comment on above: Increased risk for d iabetes: 5.7 - 6.4diabetes: >6.4glycemic control for adults with diabetes: <7.0 Laboratory - Chemistry and C hemistry - challengeOrdered By: José Nelson on 05-05-2022 Magnesium [Mass/Vol] 2.5 mg/dL 1.6-2.6 [facility] Natriuretic peptide B (Bld) [Mass/Vol] 1340.0 pg/mL 5-100 [facility] PROF CHEM 8 (BAS METB)on Anion gap [Moles/Vol] 15.1 mmol/L Normal [facility] Comment on above: Performed By: #### B FIRMWARE DEVELOPER, BMP, HSTROPN #### [facility] [address] [place], [place] [address] Dr. Nahomi Lehman Calcium [Mass/Vol] 8.5 mg/dL Normal 8.5-10.1 [facility] Comment on above: Performed By: #### B FIRMWARE DEVELOPER, BMP, HSTROPN #### [facility] [address] [place] [address] [address] Nahomi Lehman Chloride [Moles/Vol] 98 mmol/L Normal 98-107 [facility] Comment on above: Performed By: #### B FIRMWARE DEVELOPER, BMP, HSTROPN #### [facility] [address] [place] [address] Dr. Nahomi Lehman CO2 [Moles/Vol] 25.6 mmol/L Normal 21.0-32.0 [facility] Comment on above: Performed By: #### B FIRMWARE DEVELOPER, BMP, HSTROPN #### [facility] [address] [place] [address] Dr. Nahomi Lehman Creatinine [Mass/Vol] 1.43 mg/dL Critically high 0.55-1.02 [facility] Comment on above: Performed By: #### B FIRMWARE DEVELOPER, BMP, HSTROPN #### [facility] [address] [place] [address] Dr. Nahomi Lehman EGFR-AF ALGERIAN 42 mL/min/1.73m2 Critically low >=60 [facility] Comment on above: Performed By: #### B FIRMWARE DEVELOPER, BMP, HSTROPN #### [facility] [address] [place] [address] Dr. Nahomi Lehman EGFR-NON AF ALGERIAN 35 mL/min/1.73m2 Critically low >=60 [facility] Comment on above: Performed By: #### B FIRMWARE DEVELOPER, BMP, HSTROPN #### [facility] [address] [place] [address] Dr. Nahomi Lehman Glucose [Mass/Vol] 243 mg/dL Critically high 74-106 [facility] Comment on above: Performed By: #### B FIRMWARE DEVELOPER, BMP, HSTROPN #### [facility] [address] [place] [address] Dr. Nahomi Lehman Potassium [Moles/Vol] 3.7 mmol/L Normal 3.5-5.1 [facility] Comment on above: Performed By: #### B FIRMWARE DEVELOPER, BMP, HSTROPN #### [facility] [address] [place] [address] Dr. Nahomi Lehman Sodium [Moles/Vol] 135 mmol/L Critically low 136-145 [facility] Comment on above: Performed By: #### B FIRMWARE DEVELOPER, BMP, HSTROPN #### [facility] [address] [place] [address] Dr. Nahomi Lehman Urea nitrogen [Mass/Vol] 21.0 mg/dL Critically high 7.0-18.0 [facility] Comment on above: Performed By: #### B FIRMWARE DEVELOPER, BMP, HSTROPN #### [facility] [address] [place] [address] Dr. Nahomi Lehman Urea nitrogen/Creatinine [Mass ratio] 14.7 mg/mg Normal [facility] Comment on above: Performed By: #### B FIRMWARE DEVELOPER, BMP, HSTROPN #### [facility] [address] [place] [address] Dr. Nahomi Lehman PROTIMEon 05-05-2022 INR Coag (PPP) [Relative time] 1.02 {INR} Normal [facility] Comment on above: Performed By: #### P TT, PT #### [facility] [address] [place] [address] Dr. Nahomi Lehman INR GUIDELINES SEE BELOW Normal [facility] Comment on above: Result Comment: GERALD RED INR: 2.0 - 3.0 CONDITIONS NOT LISTED BELOW 2.5 - 3.5 FOR PROSTHETIC HEART VALVE REPLACEMENT 2.5 - 3.5 RECURRENT THROMBOSIS Performed By: #### P TT, PT #### [facility] [address] [place] [address] Dr. Nahomi Lehman PT Coag (PPP) [Time] 11.0 s Normal 9.0-11.6 [facility] Comment on above: Performed By: #### P TT, PT #### [facility] [address] [place] [address] Dr. Nahomi Lehman PTTon 05-05-2022 aPTT Coag (Bld) [Time] 26.9 s Normal 22.3-36.2 [facility] Comment on above: Performed By: #### P TT, PT #### [facility] [address] [address] [address] Nahomi Lehman TROPONIN, HIGH SENSITIVITYon 05-05-2022 HSTROP 169.8 pg/mL Critically high 4.0-51.3 [facility] Comment on above: Result Comment: CUT- OFF POINTS HAVE BEEN ESTABLISHED BASED ON THE FOURTH UNIVERSAL DEFINITIONS OF MYOCARDIAL INFARCTION. THE UPPER REFERENCE LIMIT (URL) OF TROPONIN, DEFINED THE 99TH PERCENTILE OF cTnI DISTRIBUTION IN A REFERENCE POPULATION, HAS BEEN CONFIRMED THE DECISION THRESHOLD FOR IA DIAGNOSIS. Performed By: #### B FIRMWARE DEVELOPER, BMP, HSTROPN #### [facility] [address] [address] [address] Nahomi Lehman XR CHEST 1 Von 05-05-2022 XR CHEST 1 V EXAM: XR CHEST 1 V HISTORY: SHORTNESS OF BREATH COMPARISON: 09/09/2020 TECHNIQUE: AP upright portable chest x-ray FINDINGS: Mild elevation of the right hemidiaphragm is again noted. No acute infiltrate, effusion or pneumothorax is readily identified. The heart is near the upper limits of normal in size. Multiple sternal wire sutures and mediastinal clips are present. IMPRESSION: There is no clear evidence of a focal infiltrate or cardiac decompensation. The overall appearance of the chest has not changed significantly. Electronically authenticated by: MANJULA ESTRADA Date: 2022-05-05 13:49 Normal [facility] CNOVon 01-11-2022 CNOV Office Visit (ORMIDD ) -- ROSEANN DALE ([id number]) 1940 F Date Time Provider Department 01/11/22 10:50 AM ALO LOMELI During your visit today, we recorded the following information about you: Alo Lomeli MD 01/11/2022 11:01 AM Signed 1 year postop Right hip revision for dislocation doing great. Ambulating with a cane. No complaints and no pain. X-rays excellent and I counseled her on her activities and we will see her back as needed. Alo Lomeli MD Referring Provider: SELF [200] Allergies As of Date: 01/11/2022 (No Known Allergies) Date Reviewed: 01/11/2022 Reviewed by: Rosalba Pool Ma - Fully Assessed 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: Post Op [174] Primary Visit Diagnosis:Right hip pain [M25.551] Prescriptions as of 01/11/2022 - traMADol (ULTRAM) 50 mg tablet Take 50 mg by mouth every 6 hours as needed for pain. - LORazepam (ATIVAN) 0.5 mg Take 0.5 mg by mouth twice daily as needed. - magnesium hydroxide (MILK OF MAGNESIA) 400 mg/5 mL suspension Take by mouth once daily as needed. - docusate sodium (COLACE) 100 mg capsule Take 1 capsule by mouth twice daily. - ondansetron (ZOFRAN) 4 mg tablet Take 1 tablet by mouth every 8 hours as needed for nausea/vomiting (For Nausea). - pantoprazole DR (PROTONIX) 20 mg tablet Take 1 tablet by mouth once daily for 14 days. - acetaminophen (TYLENOL EXTRA STRENGTH) 500 mg tablet Take 1 tablet by mouth every 8 hours as needed for pain or fever (specify). - naloxone (NARCAN) 4 mg/actuation nasal spray Use 1 spray in one nostril as needed for overdose. May repeat every 2 to 3 min in alternating nostrils until medical assistance is available - aspirin, enteric coated (ECOTRIN LOW STRENGTH) 81 mg EC tablet Take 1 tablet by mouth twice daily. - naloxone 4 mg/actuation nasal spray (NARCAN) Use 1 spray in one nostril as needed for overdose. May repeat every 2 to 3 min in alternating nostrils until medical assistance is available - pantoprazole DR (PROTONIX) 40 mg tablet Take 1 tablet by mouth once daily. - CALCIUM ORAL Take by mouth once daily. - MULTI-VITAMIN ORAL Take by mouth once daily. - gabapentin (NEURONTIN) 300 mg capsule Take 1 capsule by mouth three times daily for 30 days. - alendronate (FOSAMAX) 70 mg tablet Pt reports taking every - citalopram (CELEXA) 20 mg tablet TAKE 1 TABLET BY MOUTH EVERYDAY AT BEDTIME - furosemide (LASIX) 40 mg tablet Take 40 mg by mouth once daily. - lisinopril (ZESTRIL, PRINIVIL) 10 mg tablet Take 20 mg by mouth once daily. - diazePAM (VALIUM) 5 mg tablet Take 5 mg by mouth every 6 hours as needed. 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] 02/10/2021 Encounter Status:Closed by ALO LOMELI on 01/11/22 Normal [facility] XR HIP 3V PELV+ AP/LAT RTon 01-11-2022 XR HIP 3V PELV+ AP/LAT RT * * *Final Report* * * DATE OF EXAM: Jan 11 2022 10:51AM [id number] - XR HIP 3V PELV+ AP/LAT RT / PROCEDURE REASON: History of total hip arthroplasty, right * * * * Physician Interpretation * * * * Examination: Pelvis and right hip History: REVISION JOINT TOTAL HIP ACETABULAR COMPONENT ONLY 02-10-21 History of total hip arthroplasty, right Technique: XR HIP 3V PELV+ AP/LAT RT -- Comparison: 07/27/2021 FINDING/ RESULT: The noncemented right total hip arthroplasty appears unchanged in position compared to prior. No signs of loosening or other complication. Mild narrowing of the left hip joint space. Remainder of the pelvis is maintained. Clips project over the right lower quadrant. IMPRESSION: Right total hip arthroplasty without apparent complication. Entry Level Accounting Clerk: ANNA Transcribe Date/Time: Jan 11 2022 12:20P Dictated by : GABINO JAMES MD This examination was interpreted and the report reviewed and electronically signed by: GABINO JAMES MD on Jan 11 2022 12:22PM EST [id number] Normal [facility] XR Pelvis and Hip - right AP and Lateral frogon 01-11-2022 IMPRESSION: Right to sadia hip arthroplasty without apparent complication. Entry Level Accounting Clerk: ANNA Transcribe Date/Time: Jan 11 2022 12:20P Dictated by : GABINO JAMES MD This examination was interpreted and the report reviewed and electronically signed by: GABINO JAMES MD on Jan 11 2022 12:22PM EST ZZZ_DO_NOT_ USE_DIVISIO N OF RADIOLOGY * * *Final Report* * * DATE OF EXAM: Jan 11 2022 10:51AM [id number] - XR HIP 3V PELV+ AP/LAT RT / PROCEDURE REASON: History of total hip arthroplasty, right * * * * Physician Interpretation * * * * Examination: Pelvis and right hip History: REVISION JOINT TOTAL HIP ACETABULAR COMPONENT ONLY 02-10-21 History of total hip arthroplasty, right Technique: XR HIP 3V PELV+ AP/LAT RT -- Comparison: 07/27/2021 FINDING/ RESULT: The noncemented right total hip arthroplasty appears unchanged in position compared to prior. No signs of loosening or other complication. Mild narrowing of the left hip joint space. Remainder of the pelvis is maintained. Clips project over the right lower quadrant. ZZZ_DO_NOT_ USE_DIVISIO N OF RADIOLOGY Provider, [facility] - 01/11/2022 * * *Final Report* * * DATE OF EXAM: Jan 11 2022 10:51AM [id number] - XR HIP 3V PELV+ AP/LAT RT / PROCEDURE REASON: History of total hip arthroplasty, right * * * * Physician Interpretation * * * * Examination: Pelvis and right hip History: REVISION JOINT TOTAL HIP ACETABULAR COMPONENT ONLY 02-10-21 History of total hip arthroplasty, right Technique: XR HIP 3V PELV+ AP/LAT RT -- Comparison: 07/27/2021 FINDING/ RESULT: The noncemented right total hip arthroplasty appears unchanged in position compared to prior. No signs of loosening or other complication. Mild narrowing of the left hip joint space. Remainder of the pelvis is maintained. Clips project over the right lower quadrant. IMPRESSION IMPRESSION: Right total hip arthroplasty without apparent complication. Entry Level Accounting Clerk: PSCB Transcribe Date/Time: Jan 11 2022 12:20P Dictated by : GABINO JAMES MD This examination was interpreted and the report reviewed and electronically signed by: GABINO JAMES MD on Jan 11 2022 12:22PM EST [facility] [place] Radiology Study observation (narrative) [facility] XR Pelvis and Hip - right AP and Lateral frogOrdered By: [facility] Provider on 01-11-2022 [facility] CNOVon 07-27-2021 CNOV Office Visit (ORMIDD ) -- ROSEANN DALE ([id number]) 1940 F Date Time Provider Department 07/27/21 11:30 AM ALO LOMELI During your visit today, we recorded the following information about you: Alo Lomeli MD 07/27/2021 11:34 AM Signed 5 months postop right hip revision for dislocation continues to do well. No complaints and no pain. X-rays are excellent and I counseled her on her activities and we will see her in February with an x-ray right hip. Alo Lomeli MD Referring Provider: SELF [200] Allergies As of Date: 07/27/2021 (No Known Allergies) Date Reviewed: 07/27/2021 Reviewed by: Rosalba Pool Ma - Fully Assessed 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: Follow Up [171] Primary Visit Diagnosis:Hip pain [M25.559] Prescriptions as of 07/27/2021 - traMADol (ULTRAM) 50 mg tablet Take 50 mg by mouth every 6 hours as needed for pain. - LORazepam (ATIVAN) 0.5 mg Take 0.5 mg by mouth twice daily as needed. - magnesium hydroxide (MILK OF MAGNESIA) 400 mg/5 mL suspension Take by mouth once daily as needed. - docusate sodium (COLACE) 100 mg capsule Take 1 capsule by mouth twice daily. - ondansetron (ZOFRAN) 4 mg tablet Take 1 tablet by mouth every 8 hours as needed for nausea/vomiting (For Nausea). - pantoprazole DR (PROTONIX) 20 mg tablet Take 1 tablet by mouth once daily for 14 days. - acetaminophen (TYLENOL EXTRA STRENGTH) 500 mg tablet Take 1 tablet by mouth every 8 hours as needed for pain or fever (specify). - naloxone (NARCAN) 4 mg/actuation nasal spray Use 1 spray in one nostril as needed for overdose. May repeat every 2 to 3 min in alternating nostrils until medical assistance is available - aspirin, enteric coated (ECOTRIN LOW STRENGTH) 81 mg EC tablet Take 1 tablet by mouth twice daily. - naloxone 4 mg/actuation nasal spray (NARCAN) Use 1 spray in one nostril as needed for overdose. May repeat every 2 to 3 min in alternating nostrils until medical assistance is available - pantoprazole DR (PROTONIX) 40 mg tablet Take 1 tablet by mouth once daily. - CALCIUM ORAL Take by mouth once daily. - MULTI-VITAMIN ORAL Take by mouth once daily. - gabapentin (NEURONTIN) 300 mg capsule Take 1 capsule by mouth three times daily for 30 days. - alendronate (FOSAMAX) 70 mg tablet Pt reports taking every - citalopram (CELEXA) 20 mg tablet TAKE 1 TABLET BY MOUTH EVERYDAY AT BEDTIME - furosemide (LASIX) 40 mg tablet Take 40 mg by mouth once daily. - lisinopril (ZESTRIL, PRINIVIL) 10 mg tablet Take 20 mg by mouth once daily. - diazePAM (VALIUM) 5 mg tablet Take 5 mg by mouth every 6 hours as needed. 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] 02/10/2021 Encounter Status:Closed by ALO LOMELI on 07/27/21 [facility] XR HIP 3V PELV+ AP/LAT RTon 07-27-2021 XR HIP 3V PELV+ AP/LAT RT * * *Final Report* * * DATE OF EXAM: Jul 27 2021 11:35AM MOX 5352 - XR HIP 3V PELV+ AP/LAT RT / PROCEDURE REASON: Pain * * * * Physician Interpretation * * * * EXAMINATION: XR HIP 3V PELV+ AP/LAT RT PATIENT/TECHNOLOGIST PROVIDED HISTORY: REVISION JOINT TOTAL HIP ACETABULAR COMPONENT ONLY 02-10-21 CLINICAL INFORMATION ( PROVIDED BY ORDERING CLINICIAN) : Pain TECHNIQUE: XR HIP 3V PELV+ AP/LAT RT Laterality: RIGHT Number of different views (projections): 3 M: XB_1 COMPARISON: 04/27/2021 RESULT: Postsurgical changes of right total hip arthroplasty without evidence of hardware related complication. No acute fracture or dislocation. Moderate degenerative change of the left hip without significant progression. SI joints are preserved. No other significant abnormality. IMPRESSION: Intact right total hip arthroplasty. Entry Level Accounting Clerk: ANNA Transcribe Date/Time: Jul 27 2021 12:58P Dictated by : BREE CLAROS MD This examination was interpreted and the report reviewed and electronically signed by: BREE CLAROS MD on Jul 27 2021 12:59PM EST [id number] [facility] XR Pelvis and Hip - right AP and Lateral frogon 07-27-2021 IMPRESSION: Intact right total hip arthroplasty. Entry Level Accounting Clerk: PSC[employer] Transcribe Date/Time: Jul 27 2021 12:58P Dictated by : BREE CLAROS MD This examination was interpreted and the report reviewed and electronically signed by: BREE CLAROS MD on Jul 27 2021 12:59PM EST DIVISION OF RADIOLOGY * * *Final Report* * * DATE OF EXAM: Jul 27 2021 11:35AM MOX 5352 - XR HIP 3V PELV+ AP/LAT RT / PROCEDURE REASON: Pain * * * * Physician Interpretation * * * * EXAMINATION: XR HIP 3V PELV+ AP/LAT RT PATIENT/TECHNOLOGIST PROVIDED HISTORY: REVISION JOINT TOTAL HIP ACETABULAR COMPONENT ONLY 02-10-21 CLINICAL INFORMATION ( PROVIDED BY ORDERING CLINICIAN) : Pain TECHNIQUE: XR HIP 3V PELV+ AP/LAT RT Laterality: RIGHT Number of different views (projections): 3 M: XB_1 COMPARISON: 04/27/2021 RESULT: Postsurgical changes of right total hip arthroplasty without evidence of hardware related complication. No acute fracture or dislocation. Moderate degenerative change of the left hip without significant progression. SI joints are preserved. No other significant abnormality. DIVISION OF RADIOLOGY Provider, [facility] - 07/27/2021 * * *Final Report* * * DATE OF EXAM: Jul 27 2021 11:35AM MOX 5352 - XR HIP 3V PELV+ AP/LAT RT / PROCEDURE REASON: Pain * * * * Physician Interpretation * * * * EXAMINATION: XR HIP 3V PELV+ AP/LAT RT PATIENT/TECHNOLOGIST PROVIDED HISTORY: REVISION JOINT TOTAL HIP ACETABULAR COMPONENT ONLY 02-10-21 CLINICAL INFORMATION ( PROVIDED BY ORDERING CLINICIAN) : Pain TECHNIQUE: XR HIP 3V PELV+ AP/LAT RT Laterality: RIGHT Number of different views (projections): 3 M: XB_1 COMPARISON: 04/27/2021 RESULT: Postsurgical changes of right total hip arthroplasty without evidence of hardware related complication. No acute fracture or dislocation. Moderate degenerative change of the left hip without significant progression. SI joints are preserved. No other significant abnormality. IMPRESSION IMPRESSION: Intact right total hip arthroplasty. Entry Level Accounting Clerk: PSCB Transcribe Date/Time: Jul 27 2021 12:58P Dictated by : BREE CLAROS MD This examination was interpreted and the report reviewed and electronically signed by: BREE CLAROS MD on Jul 27 2021 12:59PM EST [facility] Radiology Study observation (narrative) [facility] XR Pelvis and Hip - right AP and Lateral frogOrdered By: [facility]cf Provider on 07-27-2021 [facility] CNOVon 04-27-2021 CNOV Office Visit (ORMIDD ) -- ROSEANN DALE ([id number]) 1940 F Date Time Provider Department 04/27/21 8:40 AM ALO LOMELI During your visit today, we recorded the following information about you: Alo Lomeli MD 04/27/2021 9:15 AM Signed Postop right hip revision for dislocation doing well. X-rays are excellent and I counseled her on her activities and we will see her back for an x-ray right hip in 3 months. Alo Lomeli MD Referring Provider: ALO LOMELI [[id number]] Allergies As of Date: 04/27/2021 (No Known Allergies) Date Reviewed: 04/27/2021 Reviewed by: Rosalba Pool Ma - Fully Assessed 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: Post Op [174] Primary Visit Diagnosis:Hip pain [M25.559] Prescriptions as of 04/27/2021 - traMADol (ULTRAM) 50 mg tablet Take 50 mg by mouth every 6 hours as needed for pain. - LORazepam (ATIVAN) 0.5 mg Take 0.5 mg by mouth twice daily as needed. - magnesium hydroxide (MILK OF MAGNESIA) 400 mg/5 mL suspension Take by mouth once daily as needed. - docusate sodium (COLACE) 100 mg capsule Take 1 capsule by mouth twice daily. - ondansetron (ZOFRAN) 4 mg tablet Take 1 tablet by mouth every 8 hours as needed for nausea/vomiting (For Nausea). - pantoprazole DR (PROTONIX) 20 mg tablet Take 1 tablet by mouth once daily for 14 days. - acetaminophen (TYLENOL EXTRA STRENGTH) 500 mg tablet Take 1 tablet by mouth every 8 hours as needed for pain or fever (specify). - naloxone (NARCAN) 4 mg/actuation nasal spray Use 1 spray in one nostril as needed for overdose. May repeat every 2 to 3 min in alternating nostrils until medical assistance is available - aspirin, enteric coated (ECOTRIN LOW STRENGTH) 81 mg EC tablet Take 1 tablet by mouth twice daily. - naloxone 4 mg/actuation nasal spray (NARCAN) Use 1 spray in one nostril as needed for overdose. May repeat every 2 to 3 min in alternating nostrils until medical assistance is available - pantoprazole DR (PROTONIX) 40 mg tablet Take 1 tablet by mouth once daily. - CALCIUM ORAL Take by mouth once daily. - MULTI-VITAMIN ORAL Take by mouth once daily. - gabapentin (NEURONTIN) 300 mg capsule Take 1 capsule by mouth three times daily for 30 days. - alendronate (FOSAMAX) 70 mg tablet Pt reports taking every - citalopram (CELEXA) 20 mg tablet TAKE 1 TABLET BY MOUTH EVERYDAY AT BEDTIME - furosemide (LASIX) 40 mg tablet Take 40 mg by mouth once daily. - lisinopril (ZESTRIL, PRINIVIL) 10 mg tablet Take 20 mg by mouth once daily. - diazePAM (VALIUM) 5 mg tablet Take 5 mg by mouth every 6 hours as needed. 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] 02/10/2021 Encounter Status:Closed by ALO LOMELI on 04/27/21 [facility] XR HIP 3V PELV+ AP/LAT RTon 04-27-2021 XR HIP 3V PELV+ AP/LAT RT * * *Final Report* * * DATE OF EXAM: Apr 27 2021 8:31AM MOX 5352 - XR HIP 3V PELV+ AP/LAT RT / PROCEDURE REASON: Status post revision of total hip replacement * * * * Physician Interpretation * * * * Examination: Pelvis and right hip History: f/u on surgery Status post revision of total hip replacement Technique: XR HIP 3V PELV+ AP/LAT RT -- Comparison: 03/30/2021 FINDING/ RESULT: The noncemented right total hip arthroplasty appears unchanged in position when compared to prior. No evidence of loosening or other complication. Moderate joint space narrowing of the left hip appears unchanged. Remainder of the pelvis is maintained. Incidental note of right lower quadrant clips. There are degenerative findings in the lumbar spine. IMPRESSION: Right total hip arthroplasty without interval radiographic change. Entry Level Accounting Clerk: ANNA Transcribe Date/Time: Apr 27 2021 9:29A Dictated by : GABINO JAMES MD This examination was interpreted and the report reviewed and electronically signed by: GABINO JAMES MD on Apr 27 2021 9:33AM EST [id number] [facility] XR Pelvis and Hip - right AP and Lateral frogon 04-27-2021 IMPRESSION: Right to sadia hip arthroplasty without interval radiographic change. Entry Level Accounting Clerk: [facility] Transcribe Date/Time: Apr 27 2021 9:29A Dictated by : GABINO JAMES MD This examination was interpreted and the report reviewed and electronically signed by: GABINO JAMES MD on Apr 27 2021 9:33AM EST DIVISION OF RADIOLOGY * * *Final Report* * * DATE OF EXAM: Apr 27 2021 8:31AM MOX 5352 - XR HIP 3V PELV+ AP/LAT RT / PROCEDURE REASON: Status post revision of total hip replacement * * * * Physician Interpretation * * * * Examination: Pelvis and right hip History: f/u on surgery Status post revision of total hip replacement Technique: XR HIP 3V PELV+ AP/LAT RT -- Comparison: 03/30/2021 FINDING/ RESULT: The noncemented right total hip arthroplasty appears unchanged in position when compared to prior. No evidence of loosening or other complication. Moderate joint space narrowing of the left hip appears unchanged. Remainder of the pelvis is maintained. Incidental note of right lower quadrant clips. There are degenerative findings in the lumbar spine. DIVISION OF RADIOLOGY Provider, [facility] - 04/27/2021 * * *Final Report* * * DATE OF EXAM: Apr 27 2021 8:31AM MOX 5352 - XR HIP 3V PELV+ AP/LAT RT / PROCEDURE REASON: Status post revision of total hip replacement * * * * Physician Interpretation * * * * Examination: Pelvis and right hip History: f/u on surgery Status post revision of total hip replacement Technique: XR HIP 3V PELV+ AP/LAT RT -- Comparison: 03/30/2021 FINDING/ RESULT: The noncemented right total hip arthroplasty appears unchanged in position when compared to prior. No evidence of loosening or other complication. Moderate joint space narrowing of the left hip appears unchanged. Remainder of the pelvis is maintained. Incidental note of right lower quadrant clips. There are degenerative findings in the lumbar spine. IMPRESSION IMPRESSION: Right total hip arthroplasty without interval radiographic change. Entry Level Accounting Clerk: PSCB Transcribe Date/Time: Apr 27 2021 9:29A Dictated by : GABINO JAMES MD This examination was interpreted and the report reviewed and electronically signed by: GABINO JAMES MD on Apr 27 2021 9:33AM EST [facility] Radiology Study observation (narrative) [facility] XR Pelvis and Hip - right AP and Lateral frogOrdered By: Ccf Provider on 04-27-2021 [facility] CNOVon 03-30-2021 CNOV Office Visit (ORMIDD ) -- RSOEANN DALE ([id number]) 1940 F Date Time Provider Department 03/30/21 10:10 AM ALO LOMELI ORMIDD During your visit today, we recorded the following information about you: Alo Lomeli MD 03/30/2021 10:25 AM Signed 7 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 Doing well. Wound is healed. X-rays today are stable. She has an MDM liner. She has been wearing an immobilizer. She can start to wean out of it. I will see her back with an x-ray right hip in a month. Alo Lomeli MD Referring Provider: ALO LOMELI [[id number]] Allergies As of Date: 03/30/2021 (No Known Allergies) Date Reviewed: 03/09/2021 Reviewed by: Rosalba Pool Ma - Fully Assessed Primary Visit Diagnosis:Right hip pain [M25.551] Prescriptions as of 03/30/2021 - traMADol (ULTRAM) 50 mg tablet Take 50 mg by mouth every 6 hours as needed for pain. - LORazepam (ATIVAN) 0.5 mg Take 0.5 mg by mouth twice daily as needed. - magnesium hydroxide (MILK OF MAGNESIA) 400 mg/5 mL suspension Take by mouth once daily as needed. - docusate sodium (COLACE) 100 mg capsule Take 1 capsule by mouth twice daily. - ondansetron (ZOFRAN) 4 mg tablet Take 1 tablet by mouth every 8 hours as needed for nausea/vomiting (For Nausea). - pantoprazole DR (PROTONIX) 20 mg tablet Take 1 tablet by mouth once daily for 14 days. - acetaminophen (TYLENOL EXTRA STRENGTH) 500 mg tablet Take 1 tablet by mouth every 8 hours as needed for pain or fever (specify). - naloxone (NARCAN) 4 mg/actuation nasal spray Use 1 spray in one nostril as needed for overdose. May repeat every 2 to 3 min in alternating nostrils until medical assistance is available - aspirin, enteric coated (ECOTRIN LOW STRENGTH) 81 mg EC tablet Take 1 tablet by mouth twice daily. - naloxone 4 mg/actuation nasal spray (NARCAN) Use 1 spray in one nostril as needed for overdose. May repeat every 2 to 3 min in alternating nostrils until medical assistance is available - pantoprazole DR (PROTONIX) 40 mg tablet Take 1 tablet by mouth once daily. - CALCIUM ORAL Take by mouth once daily. - MULTI-VITAMIN ORAL Take by mouth once daily. - gabapentin (NEURONTIN) 300 mg capsule Take 1 capsule by mouth three times daily for 30 days. - alendronate (FOSAMAX) 70 mg tablet Pt reports taking every - citalopram (CELEXA) 20 mg tablet TAKE 1 TABLET BY MOUTH EVERYDAY AT BEDTIME - furosemide (LASIX) 40 mg tablet Take 40 mg by mouth once daily. - lisinopril (ZESTRIL, PRINIVIL) 10 mg tablet Take 20 mg by mouth once daily. - diazePAM (VALIUM) 5 mg tablet Take 5 mg by mouth every 6 hours as needed. 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 TECHNIQUE: XR HIP 3V PELV+ AP/LAT RT Laterality: RIGHT Number of different views (projections): 3 COMPARISON: Radiographs dated 03/09/2021 RESULT: Right total hip arthroplasty in place with intact hardware. There is no acute fracture or dislocation. There are degenerative changes at the lower lumbar spine, bilateral sacroiliac and left hip joints and pubic symphysis. Surgical clips are noted. No other significant abnormality. IMPRESSION: Right total hip arthroplasty in place with intact hardware. Entry Level Accounting Clerk: PSC[employer] Transcribe Date/Time: Mar 30 2021 11:48A Dictated by : JOSIAH RINALDI MD This examination was interpreted and the report reviewed and electronically signed by: JOSIAH RINALDI MD on Mar 30 2021 11:50AM EST [id number] [facility] CNOVon 03-09-2021 CNOV Office Visit (ORMIDD ) -- ROSEANN DALE ([id number]) 1940 F Date Time Provider Department 03/09/21 11:20 AM ALO LOMELI During your visit today, we recorded the following information about you: Alo Lomeli MD 03/09/2021 12:00 PM Signed Post hip revision doing well. Wearing the brace. Surgery was a month ago. Wound is healed sutures removed. No calf complaints. X-rays are excellent. Pleased with her progress and I will see her back in 2 weeks with an x-ray right hip and then we will start to wean her out of the immobilizer. Alo Lomeli MD Referring Provider: SELF [[id number]] Allergies As of Date: 03/09/2021 (No Known Allergies) Date Reviewed: 03/09/2021 Reviewed by: Rosalba Pool Ma - Fully Assessed 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: Post Op [174] Primary Visit Diagnosis:Primary osteoarthritis of right hip [M16.11] Prescriptions as of 03/09/2021 - traMADol (ULTRAM) 50 mg tablet Take 50 mg by mouth every 6 hours as needed for pain. - LORazepam (ATIVAN) 0.5 mg Take 0.5 mg by mouth twice daily as needed. - magnesium hydroxide (MILK OF MAGNESIA) 400 mg/5 mL suspension Take by mouth once daily as needed. - docusate sodium (COLACE) 100 mg capsule Take 1 capsule by mouth twice daily. - ondansetron (ZOFRAN) 4 mg tablet Take 1 tablet by mouth every 8 hours as needed for nausea/vomiting (For Nausea). - pantoprazole DR (PROTONIX) 20 mg tablet Take 1 tablet by mouth once daily for 14 days. - acetaminophen (TYLENOL EXTRA STRENGTH) 500 mg tablet Take 1 tablet by mouth every 8 hours as needed for pain or fever (specify). - naloxone (NARCAN) 4 mg/actuation nasal spray Use 1 spray in one nostril as needed for overdose. May repeat every 2 to 3 min in alternating nostrils until medical assistance is available - enoxaparin (LOVENOX) 40 mg/0.4 mL Inject 0.4 mL subcutaneously every 24 hours for 28 days. - aspirin, enteric coated (ECOTRIN LOW STRENGTH) 81 mg EC tablet Take 1 tablet by mouth twice daily. - naloxone 4 mg/actuation nasal spray (NARCAN) Use 1 spray in one nostril as needed for overdose. May repeat every 2 to 3 min in alternating nostrils until medical assistance is available - pantoprazole DR (PROTONIX) 40 mg tablet Take 1 tablet by mouth once daily. - CALCIUM ORAL Take by mouth once daily. - MULTI-VITAMIN ORAL Take by mouth once daily. - gabapentin (NEURONTIN) 300 mg capsule Take 1 capsule by mouth three times daily for 30 days. - alendronate (FOSAMAX) 70 mg tablet Pt reports taking every - citalopram (CELEXA) 20 mg tablet TAKE 1 TABLET BY MOUTH EVERYDAY AT BEDTIME - furosemide (LASIX) 40 mg tablet Take 40 mg by mouth once daily. - lisinopril (ZESTRIL, PRINIVIL) 10 mg tablet Take 20 mg by mouth once daily. - diazePAM (VALIUM) 5 mg tablet Take 5 mg by mouth every 6 hours as needed. 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] 02/10/2021 Encounter Status:Closed by ALO LOMELI on 03/09/21 [facility] XR HIP 3V PELV+ AP/LAT RTon 03-09-2021 XR HIP 3V PELV+ AP/LAT RT * * *Final Report* * * DATE OF EXAM: Mar 09 2021 11:09AM MOX 5352 - XR HIP 3V PELV+ AP/LAT RT / PROCEDURE REASON: Primary osteoarthritis of right hip * * * * Physician Interpretation * * * * Examination: Pelvis and right hip History: 4 week thr follow up Primary osteoarthritis of right hip Technique: XR HIP 3V PELV+ AP/LAT RT -- Comparison: 02/11/2021, early postoperative FINDING/ RESULT: The noncemented right total hip arthroplasty appears unchanged in position when compared to prior. There has been completely resorbed in of the soft tissue gas. Moderately to severe left hip narrowing, as before. Remainder of the pelvis is maintained. Incidental note of a clip in the right lower quadrant IMPRESSION: Right total hip arthroplasty without apparent complication. Entry Level Accounting Clerk: ANNA Transcribe Date/Time: Mar 09 2021 1:15P Dictated by : GABINO JAMES MD This examination was interpreted and the report reviewed and electronically signed by: GABINO JAMES MD on Mar 09 2021 1:18PM EST [id number] [facility] Coding Summary.on 02-12-2021 Coding Summary. CD:[id number] Gh0bWw +PGhlYWQ+FG1ADSLxC22pdAMyb A9VL9fUHL3TRXPFIBTVKE5XXC6 rdBS7DSdaU1EbgtCc YufvdRArXS96GHl2PXB4kSzcSR vgsE0tdALdY6g9TiKaJO56pM86 PRjsIEWnRfV8RvQivpbykISp Y3fxSjDvaTSeGon+PHRhYmxlIH mjLJYfGBunPXHuQeWtnQquEZ2c Gy2wGVTzPFPviNwviCBqXwJb m0wzCTVwFTgsSF3ugSdaO2UtvF F0XOCoc7b5Jd70gSR+PHRkIHN0 bKnuZSnxm307UoQvb6pxHHC9 dAIxFLkzJUG7R23wi8Q9JZHuPL PvWDN2nPO5kM1jzTvnigixN2Df nTZhCiT5VDF2sWYyjB1psUdz opcaqX0tOnw+E15NAU1PSNEJUY 0USnr5G9JvBfusbLQ+CC41PLYm WY60hTXinXRpy0ortKy6RdGo EMStZAM2hHmcOMlox7LwPDOsJ1 1mpGSik5J2STHrhYkovKHkQsIq jQH1wW1xQVtheuwcl9caolcl Dgniw9fzad67oR24Y25lVSohOB XwEDP3NRKiMNUzhBsugd1toH7r Ii8+WSqmj1rvn9aopDh9GdPd AOSlivHluTlcWKJ2y6IuMk10S8 VzyDubn7HjBea2lm34lLGvc8A5 pFD2QJwxGYDfyA7sIIleEsW7 MQGyNpKzxC30kLTiAQpbVz9geC iynGefYM8bUXUtkoueEGDbuC4v EJJipFMlhFfzSP8aHVTpirmc q722VzVuJUJ4CUOovBDlL1HpuL 3lUkElIMMaIZWbK0MkgTGkCVov E664QBhiUcO8ISHqxuLoI6Gz FPHvnLadDzX8v7L6Xf3Yk0Dzhc pzPIN0FRcyPEI9KaZxOpPmXaH0 O9XwMgf8DZQgiDuhWZ6zQ2Zs FOSjcixszguljFO7ITDcHNHbqV 21zPReCImjOh9wl5R4g530OIQs HVAmpB21Tn7peKvvZXJdkHGT oN5mquddy9tfiezaNjKoGHDnPH a3SKh3BZAmtXjkBiAlPFK3SlJ4 OKI4aYTwnJ4lvAlnfgaomL9f Oyc+G39udO0qMLI6UMM6ikpuEM PckkMnPC95BV23B5DkVizopMAx bGU+GECjxrKtkBpfCP5zTxMo b9fik6AkPKmfX4XpYBPlVFkyTz o0QBQgCGB0jMG6aM7kNSYxXVuo w9L4mTD4M6CovgVucc7wr5tz AGFfYMyuG70pmJYob0P9QWKnxM Y7DYWcqOkrXzQqsJ17Lif+PGNv vEmnc2BaQswze6ikf1nlfLc1 VzAdJYKpucTdhPuaDAR5s4RfWd 31J74yJMqeYIZkUQGlHLClYZZo zPmxjb2scQ5jKg3+PGNvbCB3 nCY8uY8yOONzKvI1EAvtB462Nt BdrQIhRypty1dwu7okkWh0ZvGj DZUbxxAhzTzxQXV8q4PnOo29 W59sNRseTYMfEKSsZVKaTCHgxB ygpa5cdS9qVc5+KL1ag0pvya30 wW61kSX+QUMcCCO5vHcjXYat PJVrgF4wZBhqYwB8JPTaYvQgxB 80hZSyVYrxXw4paJiqnVsjUJ8j UHLbqsfpt960DlTzg4zhJXCd vMHcSJxbIQD0I67lh4U0GNAeKE UpCJO1jBG9uM1ddAhlvmfvsIRp tFzxekOzqIbsEQrpBVhqS636 IHRvcDsnPlBhdGllbnQgTmFtZT r2C7KkHcp6FFAulAfvXV8gxQDd QOrqOm8inEcaeRhsPI0qSBWa xqtjr037DlQvd7rgGZTmcPBqHJ mgVUK6X33vd1O5DPDeXFKhORM8 fOK3vL8jaDxggnncrUKgvDyp wsKjxGghSOspVCbpC635DTYnyK avGjVtgpRfYDRzeOH6LF89VF72 bJDer7G3wCR0N5HpGWTyxclt ljaxwIP3ZROgBNDnpB88Qq9npN vuEt2sFSJqWLN9ESOvwVOpB3Jj gY4lJeLcMJCfGVQuW5YeiESy KDfpY532YXfwFrK4XGLnyqVhE5 XjIYEjjGczPhV7c4F1Wq1XG2G8 EG81OQ08tMZcu3D3rOB3M6Ph KJAmvvfgprtlfYE8YETqFBWanB 29Nd4yhWmcPf7pHHGiGQS8OHUr eUJsX7UxiI8aNeHgMUIxTIQc K2RqvQVjDIvlC652OUepXbF3DH JkeaJvW6PzCHOreGhxXnN1p4T6 Uv5XCCg0XP05QW00oTNho1I9 oIG1J6ZeSCXpgljbcrlafMH6JC QsDHXtsJ09Jk8cbRtgSq5dLXNo GVL4IEPxvOWkD5GfeN0qEqRl YTYpCAXdM8UueHTrKKrkR727UU yfVhM6TKHksjMzJ1IuOXJdhXns JzG8x6L1Cv2DMIQjRZ21UOD4 dQE6DN38QP50N4PtQkcsgTTjyN U+PHRhYmxlIHdpZHRoPScxMDAl FxKjfSxkXX6lVd9kVRJiHCNf wRhhcOYlPgAoh9xrFULvERirVY 5zlGjpY1NtfBT0FAMkc4o5Nq23 P96hZ7PojGJ+ERFnuQI4wJM3 aA2xJgUoXhS9PThyD034UcPjlB HrYlzpu5aav2uvcJu5ViY1APCs ojIzqTymOIE1n6HrMy14G63q IHdpZHRoPSIxNSUiIHZhbGlnbj 5puM2rRy9+QLZneUW9mNL8dJ6n CiNmJtW3DBleE066UlYdqKQs Tdlas7wke2kyeXa5RwYhETRpec OyiLwmKRW4s3TcNz92J7NeeXjw a1HoMjm9kt76zXQzl4V8pWK3 Q5FoIEIuuvkknMUmsNjsGH5uOX RykkziRJThqM6qIZAmQ8a4GuSj BgG8PSwhT0EvkkH9FLDdjMJy FVwvELY2B77iq7D7MATqHZQwNR K8pIW1bO7pgOysgqktkBZhwNrx rtFniWofVNfjEJrcR170IAOn gIutZWIynA6gSCSxsZYecZchTU 4pXVTbvhfbBdIIJRjBQB0gESPU EqRAGXEKWY25AG34qHAsb5P8 sSO4K3ElBOIxlyzicboojPT0LR XlOIFxtW76cEAxQVcgSk8bl6R4 a418VIGrTOQrhH68To5lzNpq LLZlfFLQmN7cykozo8ifdhkpCq SyVBGuUBf9VDx3CEGszFcoGsTb KOB9LmY7ONP3cUGvnN3lzWvy ukumiS6iEux+MDgvMTcvMTkzOD wvdGQ+EVSsMNB0uXmeWOufJSRo pF0kHTEmQ6o8OhZnZsP2QPjl L3YkQFBtbuheMt07xF8zDlSrZb T7VVeaR9UoktE4EWAusJIuVAee LHU2P04mb5S5FILfWLNtZMP5 hKU5kX6gnVvinsnuvSNcvKssos CwaTzrSCnzMNslU163FEDnzTcx EfonBLfwPDXlAJ48MF93yHKa h2V2oPJ3W2MiEOPjsmelvmsjcS U2EKZwYJOdiY85aEWoHRmuKr8k f1D4q109AOHlOUVgsS08Vg5o bLibWSIffEJJoS6mkgdny1uhgk kjFoOiDBZkGLy2GSy0TDDtxZqv EdRbJPB2WuX7LLT2nUZpxC8s nMsktnvdqY5iObi+RmVtYWxlPC 64IO78iBKnw0U3fDB7F7FzOYFs cyfsalkgsZP2XNHpJDVcbS00 tYVmCDdjTx2jg9K9s175VAVkZB DelS31Tk2vlZhlLMKezBNNaU5u gstoj8veyynrFiYiEEXaSYk1 PAa2JIZxmKquZzFfXSI6HpG3WO G1xKEveW0rcOjrarlwsW9jCqn+ UU3hDKSyOW75VD41PJ53F2Co PjwvdGFibGU+PHRhYmxlIHdpZH UwZZgsNAUtKnNasLvsSG5cFu5m IPNxFEIhmGkfeASmCvYdo3bo GEPvYCdgRM5jbHcqD2WtiFO8LX Bsw7c7Yw93L13lV1QqeUO+PGNv iBE2aBS7kZ2uSlJbPeR6SYvo G051PqJjyIRbQawji0qnx9nhqQ h4PvBxYCXuoaIqbJueAOR5k0Xd Tu63Q63eXUvxFJQbWLUfEDCm RJIaiJyrok3dsQ7uQi1+PGNvbC K1gPR2zU2uDeItYaA0IDzeE190 CwExyGLwTystJ86gD6FlqFY+ MKMrAcr5HOFjnSxoCD5zeMNnOX gsJf8aXLJ6DxSyAfMeJZzrP3Mt UBQmbitrarsclUK1LBXaVPJp vQ81Pz6lcXmqSv2vVHXjGVB5FF WxsCLyN5BcaN5fQrMdSSAeQLGp V3LtdPDnIMkkK149VRdrGtS2 RXNgtnVzR5NiNFDfpTlhWyC1l2 E4Dr8FvTlqzAZeEI5iHoHrYHe8 U5KhBzq2TPDwrTuyYC8cvWBz ABibGc6umNbqsVmiTE3wIOVaos kva000MwRta2ydXNTnbSMgNOhp XLW5V10gu0T7BJJyUJVeKQM6 fDU7nO6elVyrpepxwQHlbXywhi ChcZprJLcjXVneA767JYWkmItg FfGHJju1O7CnXho4VURmiKnh DJ6zsCSuXKkhUu0igLxmhWdtQT 5yRDSjogfzg209DlOcn6owRNTh hXSdYAoxWQM6M86el8U5WYBh XUGjRRA2dRL6vV0ixOgnbwmrnB EetZehkmOwrMdnQOkpQKdpL295 WYPvzAzcMr0KSzm4J9LpPxn9 BJYlfShkHA1zsSGkRUaeRi1vpP zjsJvgGQ2bAVXrvthmk908DnFa z3jeUGYzhNGyAKfoBAE9X05a r5P5OITvPSRkQWG2aAQ0tL1skP lnbjogbGVmdDsgdmVydGljYWwt HGfzX097QDXjrZitGtVjwCSp OjwvdGQ+QC26qv52H5DwNxgtDh e1ITOyCLC3qZT4dG0xXZGaEAxw y7M6bTO2N7CfadTpio0el5va YXBz (more content not included)... [facility] Interdisciplinary Note - Ferny e Manageron 02-12-2021 Interdisciplinary Note - Electrician Office ED: tami H/P: mack Profit: partial PIS (OBS/IN): obs 01/31 2157;TF 02/01 2140 Chgs: D/C: VTE: na MCG: -IP musculoskeletal Tele: private ICU: na >2mn: <2mn [facility] PAT (tests): no Readmit: no MM: OBS: SS: observation 01/31 to inpatient 02/01 charges completed obs 2hr Inpt 02/01 Profit completed- NPCR with medicare Normal [facility] Comment on above: Result Comment: Elec tronically Signed By: Susan Carrizales RN\.br\Date and Time Signed: 02/12/21 09:37 EDT ALLIED HEALTHon 02-11-2021 ALLIED HEALTH HNO ID: [id number] Author: RT Maggie(R) Service: Radiology Author Type: Technologist Type: Allied Health Filed: 02/11/2021 10:35 AM Note Text: Radiology Service Progress Note PATIENT NAME: Roseann Dale DATE OF SERVICE: February 11, 2021 TIME: 10:34 AM PATIENT IDENTITY VERIFICATION COMPLETED USING TWO (2) IDENTIFIERS: Name and Date of confirmed by patient verbally and Name and Date of confirmed by identification band. FALL SCREENING: Has the patient had 2 falls in the last year or 1 fall with injury or currently using an Ambulatory Assistive Device (Walker, Cane, Wheelchair, Crutches, etc.)? Inpatient: Screened on floor PATIENT GENDER DATA: Female. status: : No status: NO. PATIENT RELEVANT IMPLANT DATA REVIEWED: Not Applicable RADIOLOGY DEPARTMENT: General X-ray: Exam(s) Completed: Chest X-Ray PERIPHERAL IV DATA: Not applicable SIGNED BY: RT Mellisa(R) February 11, 2021 10:34 AM [facility] ALLIED HEALTH HNO ID: [id number] Author: RT Ching(Aleshia) Service: Radiology Author Type: Technologist Type: Allied Health Filed: 02/11/2021 8:35 AM Note Text: Radiology Service Progress Note PATIENT NAME: Roseann Dale DATE OF SERVICE: February 11, 2021 TIME: 8:35 AM PATIENT IDENTITY VERIFICATION COMPLETED USING TWO (2) IDENTIFIERS: Name and Date of confirmed by patient verbally and Name and Date of confirmed by identification band. FALL SCREENING: Has the patient had 2 falls in the last year or 1 fall with injury or currently using an Ambulatory Assistive Device (Walker, Cane, Wheelchair, Crutches, etc.)? Inpatient: Screened on floor PATIENT GENDER DATA: Female. status: : No status: NO. PATIENT RELEVANT IMPLANT DATA REVIEWED: Not Applicable RADIOLOGY DEPARTMENT: General X-ray: Exam(s) Completed: Pelvis X-Ray: Pelvis with Hip Right PERIPHERAL IV DATA: Not applicable SIGNED BY: RT Ching(R) February 11, 2021 8:35 AM Normal [facility] Basic Metabolic Panlon 02-11 Anion gap [Moles/Vol] 8 mmol/L Low 9-18 [facility] Comment on above: Performed By: #### Yenny ERNST, BMP ####[address] Calcium [Mass/Vol] 8.2 mg/dL Low 8.5-10.2 [facility] Comment on above: Performed By: #### Yenny ERNST, BMP ####[place] [phone] Chloride [Moles/Vol] 101 mmol/L Normal 97-105 [facility] Comment on above: Performed By: #### Yenny ERNST, BMP ####[place] [phone] CO2 [Moles/Vol] 30 mmol/L Normal 22-30 [facility] Comment on above: Performed By: #### Yenny ERNST, BMP ####[address] Creatinine [Mass/Vol] 0.78 mg/dL Normal 0.58-0.96 [facility] Comment on above: Performed By: #### Yenny ERNST, BMP ####[address] eGFR- Amer. >60 Normal >60 [facility] Comment on above: Performed By: #### Yenny ERNST, BMP ####[address] eGFR-All Other Races >60 Normal >60 [facility] Comment on above: Result Comment: eGFR (Estimated GFR) Units of measure: mL/min/1.73 meters squared eGFR is derived from the reexpressed MDRD Study equation using the following parameters: serum creatinine, age, gender and race. The creatinine assay has been calibrated to be traceable to IDMS. An eGFR <60 mL/min/1.73m2 for >3 months is consistent with chronic kidney disease. Refer to KDOQI guidelines for clinical interpretation. In patients with unstable renal function, e.g. those with acute kidney injury, the eGFR may not accurately reflect actual GFR. Performed By: #### C BC, BMP ####[place] [address] [place] [phone] Glucose [Mass/Vol] 119 mg/dL High 74-99 [facility] Comment on above: Performed By: #### C BC, BMP ####[place] [address] [place] [phone] Potassium [Moles/Vol] 4.4 mmol/L Normal 3.7-5.1 [facility] Comment on above: Performed By: #### C BC, BMP ####[place] [address] [place] [phone] Sodium [Moles/Vol] 139 mmol/L Normal 136-144 [facility] Comment on above: Performed By: #### C KLEVER, BMP ####[place] [phone] Urea nitrogen [Mass/Vol] 15 mg/dL Normal 7-21 [facility] Comment on above: Performed By: #### C KLEVER, BMP ####[address] CASE MANAGEMon 02-11-2021 CASE MANAGEM HNO ID: [id number] Author: Irasema Garza RN Service: ? Author Type: Registered Nurse Type: Care Mgt Progress Note Filed: 02/11/2021 4:12 PM Note Text: CARE MANAGEMENT DISCHARGE NOTE SERVICE DATE: 02/11/2021 SERVICE TIME: 1610 LOS: 0 days Admission Date: 02/10/2021 DISCHARGE ARRANGEMENT (list agency and phone number) Discharge Arrangement: [facility] facility Was an expedited discharge program used?: Yes Type: Medicare ACO 3 Day Waiver Provider Name AND Phone: See Below HANDOFF COMMUNICATION: Handoff to: Primary Care Physician TRANSPORTATION ARRANGEMENTS: Transportation Arrangements: Ambulance/[place] [facility] Agency and Phone #:: [facility] [phone] Date of Trip: 02/11/21 Time of Trip: 1900 Type of Service: Wheelchair;BLS Non-emergency Is Patient Medicaid Pending?: No 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 Daughter pre-paid for transport service. Summary of care sent to care team, PCP. SIGNATURE: Irasema Garza RN PATIENT NAME: Roseann Dale DATE: February 11, 2021 TIME: 4:10 PM PAGER/CONTACT #: [phone] Normal [facility] CBCon 02-11-2021 Absolute nRBC <0.01 Normal <0.01 [facility] Comment on above: Performed By: #### C BC, BMP ####[place] [phone] Erythrocyte distribution width (RBC) [Ratio] 13.1 % Normal 11.5-15.0 [facility] Comment on above: Performed By: #### C BC, BMP ####[place] [phone] Hematocrit (Bld) [Volume fraction] 34.5 % Low 36.0-46.0 [facility] Comment on above: Performed By: #### C BC, BMP ####[place] [phone] Hemoglobin (Bld) [Mass/Vol] 10.3 g/dL Low 11.5-15.5 [facility] Comment on above: Performed By: #### C BC, BMP ####[address] MCH 29.3 pG Normal 26.0-34.0 [facility] Comment on above: Performed By: #### C BC, BMP ####[address] MCHC (RBC) [Mass/Vol] 29.9 g/dL Low 30.5-36.0 [facility] Comment on above: Performed By: #### C BC, BMP ####[address] MCV (RBC) [Entitic vol] 98.0 fL Normal 80.0-100.0 [facility] Comment on above: Performed By: #### C BC, BMP ####[address] Platelet mean volume (Bld) [Entitic vol] 9.8 fL Normal 9.0-12.7 [facility] Comment on above: Performed By: #### C BC, BMP ####[address] Platelets (Bld) [#/Vol] 241 10*3/uL Normal 150-400 [facility] Comment on above: Performed By: #### C BC, BMP ####[address] RBC (Bld) [#/Vol] 3.52 10*6/uL Low 3.90-5.20 [facility] Comment on above: Performed By: #### C BC, BMP ####[address] WBC (Bld) [#/Vol] 6.65 10*3/uL Normal 3.70-11.00 [facility] Comment on above: Performed By: #### C BC, BMP ####[address] CONSULTon 02-11-2021 CONSULT HNO ID: [id number] Author: Fernando Vazquez MD Service: General Internal Medicine Author Type: Physician Type: Consults Filed: 02/11/2021 9:27 AM Note Text: CONSULT: MEDICAL SERVICE SERVICE DATE: 02/11/2021 SERVICE TIME: 9:20 AM REASON FOR CONSULT: post op medical care REQUESTING PHYSICIAN: Tanmay PRIMARY CARE PHYSICIAN: DO Paolo Banuelos Ms. Dale is a 81 year old female who presents for REVISION JOINT TOTAL HIP ACETABULAR COMPONENT ONLY (Right) I was asked to see the pt for post op medical care. Pt seen and chart reviewed. Patient known to me from previous medical consultation. At this time, she has no new medical concerns. She has a past history of treated myasthenia gravis as well as hypertension. Of note, her oxygen saturation upon presentation to the hospital was low. Patient does report some ongoing shortness of breath over the last few months. Her pulse oximetry has remained normal while on nasal cannula oxygen. Currently the patient denies shortness of breath. There is no history of chest pain or palpitations. FUNCTIONAL STATUS: Partially dependent PAST MEDICAL HISTORY Diagnosis Date - Myasthenia gravis (HCC) 01/20/2021 - Primary hypertension 01/20/2021 PAST SURGICAL HISTORY Procedure Laterality Date - APPENDECTOMY - HYSTERECTOMY HX - PAST SURGICAL HISTORY OF Thymectomy - PAST SURGICAL HISTORY OF emergent surgery for bowel obstruction - REVISE TOTAL HIP REPLACEMENT Right 02/10/2021 - TOTAL HIP REPLACEMENT Right 01/22/2021 FAMILY HISTORY Problem Relation Age of Onset - Cancer Mother lung - Hypertension Father - Stroke Father Social History Tobacco Use - Smoking status: Former Smoker Packs/day: 0.50 Years: 5.00 Pack years: 2.50 Quit date: 09/30/1979 Years since quittin.3 - Smokeless tobacco: Never Used Substance Use Topics - Alcohol use: Not Currently - Drug use: Never traMADol (ULTRAM) 50 mg tablet, Take 50 mg by mouth every 6 hours as needed for pain., Disp: , Rfl: , 02/09/2021 at 2046 LORazepam (ATIVAN) 0.5 mg, Take 0.5 mg by mouth twice daily as needed., Disp: , Rfl: , 02/09/2021 at 2046 magnesium hydroxide (MILK OF MAGNESIA) 400 mg/5 mL suspension, Take by mouth once daily as needed., Disp: , Rfl: , 02/09/2021 at 1907 aspirin, enteric coated (ECOTRIN LOW STRENGTH) 81 mg EC tablet, Take 1 tablet by mouth twice daily., Disp: 60 tablet, Rfl: 0, 02/09/2021 at 1907 docusate sodium (COLACE) 100 mg capsule, Take 1 capsule by mouth twice daily., Disp: 60 capsule, Rfl: 0, 02/09/2021 at 1907 meloxicam (MOBIC) 15 mg tablet, Take 1 tablet by mouth once daily., Disp: 30 tablet, Rfl: 0, 02/09/[address] (PROTONIX) 40 mg tablet, Take 1 tablet by mouth once daily., Disp: 30 tablet, Rfl: 0, 02/09/2021 at 0927 CALCIUM ORAL, Take by mouth once daily., Disp: , Rfl: , Past Week at Unknown time MULTI-VITAMIN ORAL, Take by mouth once daily., Disp: , Rfl: , Past Week at Unknown time gabapentin (NEURONTIN) 300 mg capsule, Take 1 capsule by mouth three times daily for 30 days. (Patient taking differently: Take 300 mg by mouth twice daily. ), Disp: 90 capsule, Rfl: 0, 02/10/2021 at 0700 alendronate (FOSAMAX) 70 mg tablet, Pt reports taking every , Disp: , Rfl: , 02/09/2021 at 09 citalopram (CELEXA) 20 mg tablet, TAKE 1 TABLET BY MOUTH EVERYDAY AT BEDTIME, Disp: , Rfl: , 02/09/2021 at 1908 furosemide (LASIX) 40 mg tablet, Take 40 mg by mouth once daily., Disp: , Rfl: , 02/09/2021 at 09 lisinopril (ZESTRIL, PRINIVIL) 10 mg tablet, Take 20 mg by mouth once daily. , Disp: , Rfl: , 02/09/2021 at 09 diazePAM (VALIUM) 5 mg tablet, Take 5 mg by mouth every 6 hours as needed., Disp: , Rfl: , Past Week at Unknown time naloxone 4 mg/actuation nasal spray (NARCAN), Use 1 spray in one nostril as needed for overdose. May repeat every 2 to 3 min in alternating nostrils until medical assistance is available, Disp: 1 Box, Rfl: 0 Current Facility-Administered Medications Medication Dose Route Frequency - diazePAM 5 mg tab(s) (VALIUM) 5 mg ORAL q 6 H PRN - gabapentin 300 mg cap(s) (NEURONTIN) 300 mg ORAL BID - lisinopril 20 mg tab(s) (ZESTRIL, PRINIVIL) 20 mg ORAL DAILY - furosemide 40 mg tab(s) (LASIX) 40 mg ORAL DAILY - pantoprazole DR 40 mg tab(s) (PROTONIX) 40 mg ORAL DAILY - citalopram hydrobromide 20 mg tablet (CeleXA) 20 mg ORAL AT BEDTIME - sodium chloride 0.9 % (flush) 3-5 mL (BD POSIFLUSH) 3-5 mL INTRAVENOUS q 12 H - NaCl 0.9% iv flush bag 20 mL INTRAVENOUS PRN - NaCl 0.9% iv infusion 75 mL/hr INTRAVENOUS CONTINUOUS - sodium chloride 0.9 % (flush) 2-10 mL (BD POSIFLUSH) 2-10 mL INTRAVENOUS q 12 H - morphine 2 mg injection 2 mg INTRAVENOUS q 2 H PRN - oxyCODONE IR 5-10 mg tab(s) (ROXICODONE) 5-10 mg ORAL q 4 H PRN - acetaminophen 1,000 mg tab(s) (TYLENOL) 1,000 mg ORAL q 8 H - keTORolac 15 mg injection (TORADOL) 15 mg INTRAVENOUS q 6 H - ondansetron 4 mg tab(s) (ZOFRAN) 4 mg ORAL q 6 (more content not included)... Normal [facility] Expedited [id number] 02-12-20 21 SARS-CoV-2 (COVID-19) RNA JACKSON+probe Ql (Unsp spec) UPPER RESPIRATORY TRACT SWAB Normal [facility] Comment on above: Performed By: #### E XCOVD ####[address] [phone] SARS-CoV-2 (COVID-19) RNA JACKSON+probe Ql (Unsp spec) Negative for COVID19 (SARS CoV2) by RT-PCR or equivalent method. Normal Negative for COVID19 (SARS CoV2) by RT-PCR or equivalent method. [facility] Comment on above: Result Comment: This test has been authorized by FDA under an Emergency Use Authorization (EUA). Performed By: #### E XCOVD ####[address] [phone] NURSING PROGon 02-11-2021 NURSING PROG HNO ID: [id number] Author: Juan Cardoso RN Service: Nursing Author Type: Registered Nurse Type: Nursing Progress Note Filed: 02/11/2021 6:59 PM Note Text: Nursing Progress Note Patient Name: Roseann Dale Patient Location: [id number] Daily Note: Gave report to RUBI Barrera at [facility]. All discharge instructions communicated and verbalized understanding. This note was completed by: Juan Cardoso [facility] THERAPY NTon 02-11-2021 THERAPY NT HNO ID: [id number] Author: ELBA Guadalupe/Ness Service: Occupational Therapy Author Type: Occupational Therapist Type: Therapy (PT/OT/Speech/Resp) Filed: 02/11/2021 2:57 PM Note Text: Occupational Therapy Evaluation SERVICE DATE: 02/11/2021 SERVICE TIME: 1420 to 1443 ROOM: [place] [address] Recommended Discharge Disposition: Subacute/SNF Recommended Discharge Disposition Due to: Patient requires daily, facility-based rehabilitation from at least one discipline due to:;ADL impairment resulting in caregiver dependence Anticipated Discharge Needs: Undetermined Recommended Discharge Equipment: To Be Determined OT 6 Clicks Score: 19 Precautions/Activity Restrictions: Total Hip Replacement;Weight Bearing Restrictions;Fall Risk Precaution/Activity Restriction Comments: In knee immobilizer at all times Extremity With Weight Bearing Restricted: Right Lower Extremity Right Lower Extremity Weight Bearing Status: WBAT Total Hip Replacement Precautions: Posterior Current Hospital Course: Patient is an 81 y/o female s/p R LELAND revision acetabular component only by Dr. Lomeli on 02/10/21. Original R LELAND on 01/22/21 followed by 2 dislocations. Reason for Hospital Admission: R LELAND revision Relevant Past Medical History: HTN, aortic regurgitation Response to Therapy Interventions: Good participation in activities, Requires additional time to complete activities, Slow progression with functional activities/skills Continue skilled needs due to: Functional impairment, Safety concerns Occupational Therapy Problem List: Functional Mobility Impairment;Safety Deficits;Impaired Self Care Treatment Interventions: Self Care / Home Management;Functional Mobility Training Home Environment Patient Lives With: Self/Alone Assistance Available: PRN (Daughter lives nearby) Entry To Home: Stairs;With Rail (Bilateral) Number Of Stairs Into Home: 4 Number Of Stairs To Bed/Bath: 0 Tub/Shower Type: Walk-in shower with grab bars Laundry: Main level Equipment Owned: Wheeled Walker;Cane;Grab Bars-Shower;Grab Bars-Toilet;Hydroelectric Powerplant 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 Reports amb with w/w. Denies falls. Daughter was in her home to assist with cooking, cleaning. During first dislocation, reports she was sitting in chair, daughter was putting compression stockings on and RLE twisted; pt went to ED. During second dislocation, pt was being transferred to [facility], was trying to get out of the car with knee immobilizer on, felt a pop and could not put weight on RLE. (Family was helping with ADLs/IADLs) Patient Report: I'm going back to the [facility] for therapy. CURRENT FUNCTIONAL STATUS: Most recent performance Current Activities of Daily Living Assist Level Additional Information Feeding Set Up Grooming Set Up Bathing Upper Body Minimal Assistance Bathing Lower Body Moderate Assistance Dressing Upper Body Set Up Dressing Lower Body Moderate Assistance Toileting Minimal Assistance Instrumental Activities of Daily Living Assist Level Additional Information Meal/Beverage Prep Cleaning Laundry Medication Management with Strategies Functional Mobility Assist Level Additional Information Rolling Supine to Sit Sit to Supine Scooting Sit to Stand Contact Guard Assistance Stand to Sit Stand By Assistance Bed to Chair Toilet/Commode Shower Functional Mobility Blank devine indicate activity not attempted Learning/Educational Needs: Discharge Plan;Functional Activities/Mobility;Pain Management;Plan of Care;Precautions;Safety;Se lf Care Goals for Plan of Care: Patient /Caregiver Goals: Go To Rehab Goals: Patient will demonstrate progress to optimize self-care activities, cognitive and/or coping to maximize function upon discharge. Rehab Potential: Good Patient will be discontinued from Occupational Therapy when no further skilled needs are identified in this setting. PLAN: OT Frequency: PRN (as needed) Plan of Care developed with: Patient TREATMENT INTERVENTIONS: Therapy Diagnosis: Reduced mobility-other;Decreased activities of daily living (ADL) Interventions Provided: Evaluation;Self Fdc Management (26429) $ Evaluation-Low (54048) Billed Units: 1 unit Self Fdc Management (49879) Treatment Minutes: 8 $ Self Fdc Management (14034) Billed Units: 1 unit Training AND education provided in: Activity adaption / compensatory strategies, Assistive device use, Lower extremity dressing, Positioning, Precautions/restrictions, Role of Occupational Therapy, Transfer - Sit to stand, Pain management The following therapeutic skills were used: Teach-back for education, Physical assist, Cuing verbal, Cuing visual, Cues for sequencing/proper technique for activity Total Timed Code Treatment Minutes: 8 Total Treatment Time (minutes): 23 Please see discipline specific clinic (more content not included)... [facility] THERAPY NT HNO ID: [id number] Author: Krysta Lopez, PT, DPT Service: Physical Therapy Author Type: Physical Therapist Type: Therapy (PT/OT/Speech/Resp) Filed: 02/11/2021 2:33 PM Note Text: Physical Therapy Evaluation SERVICE DATE: 02/11/2021 SERVICE TIME: 1348 to 1419 ROOM: [place] [address] Recommended Discharge Disposition: Subacute/SNF Recommended Discharge Disposition Due to: Patient requires an active, intensive rehabilitation therapy program due to:;decline in functional status requiring daily skilled care;ongoing intervention of multiple therapy disciplines Anticipated Discharge Needs: Undetermined Recommended Discharge Equipment: No equipment needs anticipated PT 6 Clicks Score: 19 Precautions/Activity Restrictions: Total Hip Replacement;Weight Bearing Restrictions;Fall Risk Precaution/Activity Restriction Comments: In knee immobilizer at all times Extremity With Weight Bearing Restricted: Right Lower Extremity Right Lower Extremity Weight Bearing Status: WBAT Total Hip Replacement Precautions: Posterior Current Hospital Course: Patient is an 81 y/o female s/p R LELAND revision acetabular component only by Dr. Lomeli on 02/10/21. Original R LELAND on 01/22/21 followed by 2 dislocations. Reason for Hospital Admission: R LELAND revision Relevant Past Medical History: HTN, aortic regurgitation Response to Therapy Interventions: Good participation in activities, Pain, Requires additional time to complete activities Continue skilled needs due to: Functional mobility/skill impairments, Safety concerns Physical Therapy Problem List: Pain;Safety Deficits;Impaired Self Care;Decreased Activity Tolerance;Decreased Range Of Motion;Decreased Strength;Functional Mobility Impairment Treatment Interventions: Education;Self Care / Home Management;Energy Conservation Training;Strengthening;Fun ctional Mobility Training Plan for next visit: Bed mobility, Chair transfer training, Gait training, Sit to Stand Transfers, Walker Training Home Environment Patient Lives With: Self/Alone Assistance Available: PRN (Daughter lives nearby) Entry To Home: Stairs;With Rail (Bilateral) Number Of Stairs Into Home: 4 Number Of Stairs To Bed/Bath: 0 Tub/Shower Type: Walk-in shower with grab bars Laundry: Main level Equipment Owned: Wheeled Walker;Cane;Grab Bars-Shower;Grab Bars-Toilet;Hydroelectric Powerplant Supervisor Prior Functional Level: Within Functional Limits Prior Functional Level Comments: Pt was d/c'ed home after R LELAND on 01/22/21. Reports amb with w/w. Denies falls. Daughter was in her home to assist with cooking, cleaning. During first dislocation, reports she was sitting in chair, daughter was putting compression stockings on and RLE twisted; pt went to ED. During second dislocation, pt was being transferred to [facility], was trying to get out of the car with knee immobilizer on, felt a pop and could not put weight on RLE. Patient Report: My stomach is upset. CURRENT FUNCTIONAL STATUS: Most recent performance Current Functional Mobility Assist Level Additional Information Rolling Supine to Sit Supervision;Additional Information from [facility], with bedrail Sit to Supine Scooting Sit to Stand Minimal Assistance Stand to Sit Minimal Assistance Bed to Chair Minimal Assistance Bed To Chair Transfer Type: Stepping Bed To Chair Transfer Equipment: Wheeled Walker Toilet/Commode Gait Contact Guard Assistance Gait Device: Wheeled Walker Gait Distance (feet): 50' Stairs Curb Step Car Transfer Blank devine indicate activity not attempted Gait Deviations Right Lower Extremity: Foot clearance decreased;Heel strike during initial stance decreased;Lacks hip extension beyond mid-stance;Push off during terminal stance decreased;Stance time decreased;Weight bearing decreased Gait Deviations Left Lower Extremity: Step length decreased General Deviations/Observations: Antalgic gait;Eleanor decreased;Difficulty changing direction/turning;Flexed trunk posture;UE weight bearing on assistive device excessive JH-HLM: 7: Walk 25 feet or more Learning/Educational Needs: Discharge Plan;Equipment;Functional Activities/Mobility;Plan of Care;Precautions;Rehabilit ation Techniques and Procedures;Safety Goals for Plan of Care: Patient /Caregiver Goals: Go To Rehab Goals: Patient will demonstrate progress to optimize functional mobility, maximize activity tolerance and endurance to maximize function upon discharge. Rehab Potential: Good Patient will be discontinued from Physical Therapy when no further skilled needs are identified in this setting. PLAN: PT Frequency: Once daily Plan of Care developed with: Patient TREATMENT INTERVENTIONS: Therapy Diagnosis: Reduced mobility-other Interventions Provided: Evaluation;Gait Training (79994) $ Evaluation-Low (14342) Billed Units: 1 unit Gait Training (80634) Treatment Minutes: 16 $ Gait Training (14604) Billed Units: 1 unit Training AND education (more content not included)... [facility] XR CHEST 2V FRONTAL/LATon XR CHEST 2V FRONTAL/LAT * * *Final Report* * * DATE OF EXAM: Feb 11 2021 10:33AM LUX 5291 - XR CHEST 2V FRONTAL/LAT / PROCEDURE REASON: Shortness of breath * * * * Physician Interpretation * * * * EXAMINATION: CHEST RADIOGRAPH (2 VIEW FRONTAL and LATERAL) CLINICAL HISTORY: Shortness of breath MQ: XC2_6 EXAM DATE/TIME: 02/11/2021 10:33 AM COMPARISON: No relevant prior studies available. RESULT: Lines, tubes, and devices: Sternotomy wires with leftward deviation of the lower most wire. Mediastinal surgical clips. Lungs and pleura: Hypoventilation of the lung bases, left greater than right. No lung mass. No pleural effusion. No pneumothorax. Cardiomediastinal silhouette: Normal cardiomediastinal silhouette. Atherosclerotic calcifications. Bones and soft tissues: Unremarkable. IMPRESSION: Consolidative changes in the left greater than right lung base might represent hypoventilation versus pneumonia. No pleural effusion. Entry Level Accounting Clerk: PSCAmmy Transcribe Date/Time: Feb 11 2021 1:10P Dictated by : GARY MODI MD This examination was interpreted and the report reviewed and electronically signed by: GARY MODI MD on Feb 11 2021 1:14PM EST [id number] [facility] XR HIP 3V PELV+ AP/LAT RTon 02-11-2021 XR HIP 3V PELV+ AP/LAT RT * * *Final Report* * * DATE OF EXAM: Feb 11 2021 8:33AM LUX 5352 - XR HIP 3V PELV+ AP/LAT RT / PROCEDURE REASON: Hip pain, acute, fx suspected, initial exam * * * * Physician Interpretation * * * * Indication: Right hip pain. Status post right hip replacement. Comparison: X-ray pelvis 02/10/2021 A single view of the pelvis and 2 views of the right hip are obtained. There is no acute fracture or dislocation. Satisfactory position of a right hip prosthesis. Impression: 1. No acute fracture or dislocation. Entry Level Accounting Clerk: ANNA Transcribe Date/Time: Feb 11 2021 8:47A Dictated by : KELSY MONTELONGO MD This examination was interpreted and the report reviewed and electronically signed by: KELSY MONTELONGO MD on Feb 11 2021 8:48AM EST [id number] [facility] ANES POSTPROC EVALon 021 ANES POSTPROC EVAL HNO ID: [id number] Author: Kristian Baez MD Service: Anesthesiology Author Type: Anesthesiologist Type: Anesthesia Postprocedure Evaluation Filed: 02/10/2021 5:48 PM Note Text: POST ANESTHESIA EVALUATION NOTE : 1940 Procedure Summary Date: 02/10/21 Room / Location: OR / OR Anesthesia Start: 141 Anesthesia Stop: 1615 Procedure: REVISION JOINT TOTAL HIP ACETABULAR COMPONENT ONLY (Right Hip) Diagnosis: Failed total hip arthroplasty with dislocation, subsequent encounter (Failed total hip arthroplasty with dislocation, subsequent encounter [T84.028D, Z96.649]) Surgeons: Alo Lomeli MD Responsible Provider: Kristian Baez MD Anesthesia Type: spinal ASA Status: 3 Anesthesia Type: spinal Last vitals Vitals Value Taken Time BP 111/58 02/10/21 1718 Temp 36.2 ?C (97.2 ?F) 02/10/21 1700 Pulse 69 02/10/21 1718 Resp 18 02/10/21 1718 SpO2 100 % 02/10/21 1718 Post Anesthesia Patient Status Patient Evaluation: PACU. PACU/ICU Patient Condition: stable. Anticipated Disposition: inpatient floor planned admission. Neurological Status: aware and responsive. Pulmonary Status: breathing comfortably on room air Airway Control: returned to baseline unsupported. Cardiovascular Status: stable. Pain Management: clinically adequate Postoperative Hydration: acceptable. Intraoperative Events: no significant anesthesia events Post Operative Nausea/Vomiting Status: no significant post operative nausea or vomiting Anesthetic Observations: Recommendation: continue current plan of care. No complications documented. SIGNATURE: Kristian Baez MD PATIENT NAME: Roseann Dale DATE: February 10, 2021 TIME: 5:48 PM CSN: [id number] [facility] ANES PRE-OPon 02-10-2021 ANES PRE-OP HNO ID: [id number] Author: Kristian Baez MD Service: Anesthesiology Author Type: Anesthesiologist Type: Anesthesia Preprocedure Evaluation Filed: 02/10/2021 1:17 PM Note Text: ANESTHESIOLOGY DAY OF SURGERY NOTE : 1940 Procedure(s) (LRB): REVISION JOINT TOTAL HIP ACETABULAR COMPONENT ONLY (Right) Surgeon(s): Alo Lomeli MD Estimated body mass index is 28.52 kg/m? as calculated from the following: Height as of 01/22/21: 160 cm (5' 3 ). Weight as of 01/22/21: 73 kg (161 lb). Most recent hematocrit and potassium results: Hematocrit 35.6 01/23/2021 Potassium 4.1 01/23/2021 Relevant Problems CARDIO (+) Aortic regurgitation (+) Primary hypertension I - PHYSICAL EVALUATION AIRWAY Patient intubated: No. Mallampati: II. TM distance: >3 FB. Neck ROM: full ROM without neurological symptoms. Mouth opening: adequate. DENTAL Dental findings: teeth intact. Additional comments: Crowns @molars. Additional exam findings: yes. CARDIOVASCULAR Rhythm: regular Rate: normal Murmur not present. PULMONARY Breath sounds clear to auscultation. II - ANESTHESIA PLAN ASA Score: 3 Anesthetic Plan: spinal Anesthetic plan additional comments: Hx spinal headache during childbirth. NPO Status: adequate Monitoring plan: standard ASA. Postoperative analgesic plan: multimodal analgesia. Anesthetic Risks, Benefits, Alternatives, Personnel Discussed. Consent obtained from: patient.Patient / Surrogate agrees to blood products: Yes Potential Anesthesia issues that may suggest increased risk of complications or contraindication to planned procedure: none. Vitals Value Taken Time BP 141/65 02/10/21 1058 Pulse 70 02/10/21 1058 Resp 16 02/10/21 1058 Temp 36.5 ?C (97.7 ?F) 02/10/21 1058 SpO2 93 % 02/10/21 1058 Facility-Administered Medications as of 02/10/2021 Medication Dose Route Frequency - lidocaine 10 mg/mL (1 %) 1-2 mg injection (XYLOCAINE) 0.1-0.2 mL INTRADERMAL PRN - lactated ringers iv infusion 5-30 mL/hr INTRAVENOUS CONTINUOUS - ceFAZolin iv piggyback 2 g in D5W (iso-osmotic) 100 mL (ANCEF) 2 g INTRAVENOUS ONCE - tranexamic acid 1,000 mg in NaCl 0.9% 100 mL (CYKLOKAPRON) 1,000 mg INTRAVENOUS ONCE - tranexamic acid 1,000 mg in NaCl 0.9% 100 mL (CYKLOKAPRON) 1,000 mg INTRAVENOUS ONCE - [COMPLETED] vancomycin iv piggyback 1 g in D5W 200 mL (VANCOCIN) 1 g INTRAVENOUS ONCE - [COMPLETED] promethazine 12.5 mg tab(s) (PHENERGAN) 12.5 mg ORAL Pre-Op Once - [COMPLETED] acetaminophen 1,000 mg tab(s) (TYLENOL) 1,000 mg ORAL Pre-Op Once - [COMPLETED] celecoxib 200 mg cap(s) (CeleBREX) 200 mg ORAL Pre-Op Once Outpatient Medications as of 02/10/2021 Medication Sig - traMADol (ULTRAM) 50 mg tablet Take 50 mg by mouth every 6 hours as needed for pain. - LORazepam (ATIVAN) 0.5 mg Take 0.5 mg by mouth twice daily as needed. - magnesium hydroxide (MILK OF MAGNESIA) 400 mg/5 mL suspension Take by mouth once daily as needed. - aspirin, enteric coated (ECOTRIN LOW STRENGTH) 81 mg EC tablet Take 1 tablet by mouth twice daily. - docusate sodium (COLACE) 100 mg capsule Take 1 capsule by mouth twice daily. - meloxicam (MOBIC) 15 mg tablet Take 1 tablet by mouth once daily. - pantoprazole DR (PROTONIX) 40 mg tablet Take 1 tablet by mouth once daily. - CALCIUM ORAL Take by mouth once daily. - MULTI-VITAMIN ORAL Take by mouth once daily. - gabapentin (NEURONTIN) 300 mg capsule Take 1 capsule by mouth three times daily for 30 days. (Patient taking differently: Take 300 mg by mouth twice daily. ) - alendronate (FOSAMAX) 70 mg tablet Pt reports taking every - citalopram (CELEXA) 20 mg tablet TAKE 1 TABLET BY MOUTH EVERYDAY AT BEDTIME - furosemide (LASIX) 40 mg tablet Take 40 mg by mouth once daily. - lisinopril (ZESTRIL, PRINIVIL) 10 mg tablet Take 20 mg by mouth once daily. - diazePAM (VALIUM) 5 mg tablet Take 5 mg by mouth every 6 hours as needed. - docusate sodium (COLACE) 100 mg capsule Take 1 capsule by mouth twice daily. - ondansetron (ZOFRAN) 4 mg tablet Take 1 tablet by mouth every 8 hours as needed for nausea/vomiting (For Nausea). - pantoprazole DR (PROTONIX) 20 mg tablet Take 1 tablet by mouth once daily for 14 days. - meloxicam (MOBIC) 7.5 mg tablet Take 1 tablet by mouth once daily for 14 days. - acetaminophen (TYLENOL EXTRA STRENGTH) 500 mg tablet Take 1 tablet by mouth every 8 hours as needed for pain or fever (specify). - oxyCODONE IR (ROXICODONE) 5 mg immediate release tablet Take 1-2 tablets by mouth every 6 hours as needed for pain (major orthopedic surgery exception) for up to 11 days. - naloxone (NARCAN) 4 mg/actuation nasal spray Use 1 spray in one nostril as needed for overdose. May repeat every 2 to 3 min in alternating nostrils until medical assistance is available - enoxaparin (LOVENOX) 40 mg/0.4 mL Inject 0.4 mL subcutaneously every 24 hours for 28 days. - naloxone 4 mg/actuation nasal spray (NARCAN) (more content not included)... [facility] BRIEF OP NOTon 02-10-2021 BRIEF OP NOT HNO ID: [id number] Author: Lexa Bocanegra MD Service: Orthopaedic Surgery Author Type: Resident Type: Brief Op Note Filed: 02/10/2021 4:15 PM Note Text: BRIEF OPERATIVE / PROCEDURE NOTE LOG ID: [id number] Surgery/Procedure Date: 02/10/2021 Incision/Procedure Start Time: 2:59 PM Incision Close/Procedure End Time: 4:00 PM Surgeon(s)/Proceduralist(s ) and Measurement Specialist(s): Surgeon(s) and Role: * Alo Lomeli MD - Primary * Parish Sullivan MD - Resident - Assisting * Lexa Bocanegra MD - Resident - Assisting Nurse Practitioner: Ambar Garza APRN.REPATCHER Physician Measurement Specialist: Remberto Hernandez PA-C Procedure(s): Procedure(s) (LRB): REVISION JOINT TOTAL HIP ACETABULAR COMPONENT ONLY (Right) Revision R LELAND to MDM head and liner Anesthesia: Spinal Peripheral Block Type: Local Approach: Posterior Findings: Well-fixed shell and stem. Large scuff [place] on ceramic head. Estimated Blood Loss: 200 mls Specimens: Femoral ceramic head Complications: None Implant: Implant Name Type Inv. Item Serial No. Head Bander And Liner Operator Lot No. LRB No. Used Action INSERT MOBILE BEARING HIP LATTER DAY 38D X3 22.2MM ACETABULAR ANATOMIC - [id number] Joint INSERT MOBILE BEARING HIP LATTER DAY 38D X3 22.2MM ACETABULAR ANATOMIC [employer] [id number] Right 1 Implanted HEAD V40 LFIT 22MM +0MM OFFSET TAPER COCR FEMORAL PRIMARY HIP - [id number] Joint - Hip HEAD V40 LFIT 22MM +0MM OFFSET TAPER COCR FEMORAL PRIMARY HIP [employer] [id number] Right 1 Implanted LINER 38MM D ACETABULAR MODULAR 2 MOBILITY HIP - [id number] Joint LINER 38MM D ACETABULAR MODULAR 2 MOBILITY HIP [employer] [id number] Right 1 Implanted Pre-Op/Pre-Procedure Diagnosis: Failed total hip arthroplasty with dislocation, subsequent encounter [T84.028D, Z96.649] Post-Op/Post-Procedure Diagnosis: Failed total hip arthroplasty with dislocation, subsequent encounter [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 Last discharge within 30 days: Yes Is this a planned readmission?: No Unplanned Reason: Recurring symptoms of underlying disease Advance Directive: Current Advance Directive: Health Care Power of Neurocritical Care Physician In Chart: No Filtration Supervisor Attempted to Assist with AD Completion: Yes Action: (pt AND daughter state that daughter Tania is POA) Health LiteracyHow often do you need to have someone help you when you read instructions, pamphlets, or other written material from your doctor or pharmacy? : 1 - Never How confident are you filling out medical forms by yourself?: 1 - Extremely If Patient scores > 3 on either question, the following interventions were put into place:: Patient did not score > 3 on either question. Baseline Mental Status Prior to this Illness what was the patient's Baseline Mental Status?: Alert AND Oriented Prior to this illness, has anyone described the patient having any of the following behaviors?: Not Applicable Relationship of the informant to the patient:: Self;Daughter;Son Name of Informant: : Tania PRASHANT Colten Functional Status: Needs Assistance Does Patient Currently Receive Any Community Services or Home Care?: [facility]pc Equipment Prior to Admission: Cane;Elevated toilet seat;Hospital Bed;Tub bench/chair;Rollator Scooter;Walker;Wheelchair; Other: See Comment ( I have everything I need available to me at [facility] ) Has the Patient Been in a Fpc Facility in the Past 30 days?: Yes Location and Dates: The , I've been in and out there SOCIAL: Living Arrangements: Nursing Facility Lives With: N/A Patient from Facility Facility Information: [facility] Financial Resources: Retired Primary Contact: Extended Emergency Contact Information Primary Emergency Contact: Tania Dale Mobile Relation: Daughter Secondary Emergency Contact: Suyapa Colten Mobile Relation: Son Supportive Patient Contact:: Unable to assess at this time Contact Resources: Family Caregiver AssessmentCaregiver is ready, willing and able to meet the patient's needs as recommended by the inter-professional team:: Yes Does the patient have an acute stroke diagnosis, or has the patient had a stroke during this admission?: No Patient's transition needs and plan for meeting these needs: pt wants to return to [facility] Patient's perception of need for this admission: hip replacement Medication Adherance I am convinced of the importance of my prescription medication: 0 - Agree Completely I worry that my prescription medication will do more harm than good to me : 0 - Disagree Completely I feel financially burdened by my [id number] expenses for my prescription medication:: 0 - Disagree Completely Risk Score: 0 Patient is categorized as: Low risk < 2 Are you interested in bedside delivery of your medications? No Is Patient Psychosocially Complex?: No ASSESSMENT AND PLAN: Medical Needs: Medical Needs: None Psychosocial Needs: Psychosocial Needs: None FREEDOM OF CHOICE EXPLAINED: [place] of Choice Given: No Reason Not Given: Patient refused (wants to return to SNF [facility]) POTENTIAL TRANSITION PLANS Fpc Facility/Intermediate Care Facility SW met with pt and her two children, Tania AND Colten, at bedside. Pt had hip replacement. Pt and children state that she came from [facility] and that she plans to return to them upon dc. SW placed referral. Pt and her children state that she has been laying flat for a week and will need PT/OT, eval pending. They report that she has all DME necessary available to her at the facility. Daughter is POA but not on file. SW will remain available. SIGNATURE: AUDRA Pettit PATIENT NAME: Roseann Dale DATE: February 10, 2021 TIME: 6:17 PM PAGER/CONTACT #: [phone] [facility] NURSING PROGon 02-10-2021 NURSING PROG HNO ID: [id number] Author: Juan Cardoso RN Service: Nursing Author Type: Registered Nurse Type: Nursing Progress Note Filed: 02/10/2021 5:40 PM Note Text: Nursing Progress Note Patient Name: Roseann Dale [id number] Daily Note: Patient transferred from PACU into room 510-1 in stable condition. Patient A/Ox3. Patient educated on 5D policies and procedures. Patient educated post-operative hip replacement precautions. Patient educated on use of call light and call light within reach. Prior to admission medication list discussed and reviewed with patient. Will continue to monitor This note was completed by: Juan Cardoso [facility] OPERATIVE NOon 02-10-2021 OPERATIVE NO HNO ID: [id number] Author: Parish Sullivan MD Service: Orthopaedic Surgery Author Type: Resident Type: Operative Report Filed: 02/10/2021 4:21 PM Note Text: -- Attestation signed by Alo Lomeli MD at 02/11/2021 4:32 PM Is present during the entire procedure including 9 cisse portions. The residents and PA assisted in the exposure and closure. Alo Lomeli MD -- OPERATIVE NOTE PATIENT NAME: Roseann Dale LOG ID: [id number] Surgery Date: 02/10/2021 Surgeon(s) and Measurement Specialist(s): Surgeon(s) and Role: * Alo Lomeil MD - Primary * Parish Sullivan MD - Resident - Assisting * Lexa Bocanegra MD - Resident - Assisting Procedure(s): Procedure(s) (LRB): REVISION JOINT TOTAL HIP ACETABULAR COMPONENT ONLY (Right) BMI: Estimated body mass index is 28.52 kg/m? as calculated from the following: Height as of 01/22/21: 160 cm (5' 3 ). Weight as of 01/22/21: 73 kg (161 lb). 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 Item Serial No. Head Bander And Liner Operator Lot No. LRB No. Used Action INSERT MOBILE BEARING HIP LATTER DAY 38D X3 22.2MM ACETABULAR ANATOMIC - [id number] Joint INSERT MOBILE BEARING HIP LATTER DAY 38D X3 22.2MM ACETABULAR ANATOMIC STR[facility] [employer] [id number] Right 1 Implanted HEAD V40 LFIT 22MM +0MM OFFSET TAPER COCR FEMORAL PRIMARY HIP - [id number] Joint - Hip HEAD V40 LFIT 22MM +0MM OFFSET TAPER COCR FEMORAL PRIMARY HIP [employer] [id number] Right 1 Implanted LINER 38MM D ACETABULAR MODULAR 2 MOBILITY HIP - [id number] Joint LINER 38MM D ACETABULAR MODULAR 2 MOBILITY HIP [employer] [id number] Right 1 Implanted Problem List: ACTIVE PROBLEM LIST Right Hip Pain Primary Hypertension Aortic Regurgitation Ddd (Degenerative Disc Disease), Lumbar Swelling Status Post Right Hip Replacement Indications: This is a 81 year old year old female who underwent a total hip arthroplasty on the Right hip on 01/22/2021. She subsequently sustained 2 posterior dislocation episodes associated with poor adherence to hip precautions. She was closed reduced successfully twice at OSH. . After discussion of the risks and benefits of surgery, the patient elected for surgical intervention to relieve pain and to improve function and increase stability of her hip prosthesis . The patient received appropriate pre-operative risk stratification. The patient understood the more involved nature of revision hip surgery, with complications including but not limited to anesthetic and medical complications, wound healing issues, scar formation, superficial and deep infection, Repeat dislocation, leg length discrepancy, intraoperative and postoperative fracture, wear of the bearing, hardware failure,need for further procedures, stiffness, and continued pain and dysfunction. Informed consent was performed, and surgical and blood consents were obtained and signed. Procedure Details: In the pre-operative holding area, the patient was identified, and the proper lower operative extremity was confirmed by myself and marked with my initials, using a permanent marker. The patient was then brought to the operating room and positioned. All bony prominences were well-padded. Anesthesia was administered, and appropriate pre-operative antibiotics were given. ALEKSEY stocking was placed on the contralateral limb, along with a pneumatic pump to the calf. Following satisfactory induction of anesthesia, the limb was prepped, and draped in the usual sterile fashion. Before any surgical instrumentation was passed to me by the surgical supervisor, a formalized time-out occurred, which involves the surgeon, circulating nurse, and anesthesia staff all verifying the correct operative extremity. The initials of a surgeon on the operative team were visible on the prepped and draped operative field. An incision was made through the old incision down to the fascia. The fascia was incised, and a standard posterior approach to the hip was accomplished, reflecting the short external rotators and capsule posteriorly for later repair. We then developed the layer between the abductors and the superior capsule. The superior capsule and a portion of the anterior capsule were released to aid in exposure and tagged for repair later. . At this point we are able to dislocate the hip. It was deemed to be unstable at 90 degs of hip fl (more content not included)... Normal [facility] SURGICAL PATHOLOGYon 021 SURGICAL PATHOLOGY Specimen originated from [facility] Specimen #: [id number] Submitting Physician: Alo Lomeli M.D. FINAL DIAGNOSIS Right hip, explants, removal - Femoral and acetabular components of a total hip arthroplasty (gross examination only). CNB/TONY/abdon 02/11/2021 Ca May M.D. (Electronic Signature) SPECIMEN SUBMITTED A: REMOVED HARDWARE RIGHT HIP CLINICAL DATA FAILED TOTAL HIP ARTHROPLASTY WITH DISLOCATION, SUBSEQUENT ENCOUNTER; REVISION RIGHT HIP GROSS DESCRIPTION A. Received in formalin labeled as removed hardware right hip is a pink ceramic nodular femoral head and a polyethylene acetabular insert. The femoral head is inscribed as follows: [id number] V40 32MM-4. There is significant metal transfer present. The acetabular insert is inscribed as follows: Size D. 123-0-32D YK4DX UHMWPE. There is no obvious evidence of wear. No tissue is present. No sections are submitted. The specimen is reviewed with Dr. May. Gross examination only. TONY/abdon 02/11/2021 Gross examination performed at [facility], [address] [place] [address] Date of Report: 02/12/2021 Date of Procedure: 02/10/2021 Date of Receipt: 02/10/2021 Submitted by: Alo Lomeli M.D. Location: [facility] Diagnostic interpretation performed at [facility], [address] [place] [address]. IA Number: [id number] [facility] XR PELVIS 1V APon 02-10-2021 XR PELVIS 1V AP * * *Final Report* * * DATE OF EXAM: Feb 10 2021 5:07PM LUX 5239 - XR PELVIS 1V AP / PROCEDURE REASON: Post-operative / post-procedure assessment, asymptomatic * * * * Physician Interpretation * * * * Lower PELVIS RADIOGRAPH HISTORY: 81 years old Clinical information: Post-operative / post-procedure assessment, asymptomatic POST OP RT HIP TECHNIQUE: Images: XR PELVIS 1V AP Comparison: None. RESULT: Findings: Right total hip arthroplasty. Possible replacement of the acetabular component of the hip arthroplasty. Remainder of the arthroplasty appears to be intact.. Soft tissue and intra-articular air.. No fracture or dislocation. IMPRESSION: Postsurgical change. No complication. Entry Level Accounting Clerk: ANNA Transcribe Date/Time: Feb 10 2021 5:13P Dictated by : JAGUAR SOSA MD This examination was interpreted and the report reviewed and electronically signed by: JAGUAR SOSA MD on Feb 10 2021 5:14PM EST [id number] [facility] HNO ID: [id number] Author: Lexa Bocanegra MD Service: Orthopaedic Surgery Author Type: Resident Type: Discharge Summary Filed: 02/11/2021 4:15 PM Note Text: -- Attestation signed by Alo Lomeli MD at 02/13/2021 9:35 AM Instructions given Alo Lomeli MD -- ORTHOPEDIC SURGERY DISCHARGE SUMMARY ADMISSION DATE: 02/10/2021 DISCHARGE DATE: 02/11/2021 Attending Physician: Alo Lomeli MD Reason for Hospitalization: Hip Advanced Degenerative Joint Disease Admitting Diagnosis: Hip Advanced Degenerative Joint Disease Discharge Diagnosis: Hip Advanced Degenerative Joint Disease Additional Diagnoses: ACTIVE PROBLEM LIST Right Hip Pain Myasthenia Gravis (Hcc) Primary Hypertension Aortic Regurgitation Ddd (Degenerative Disc Disease), Lumbar Swelling Status Post Right Hip Replacement Surgeries During Hospitalization: Procedure(s) (LRB): REVISION JOINT TOTAL HIP ACETABULAR COMPONENT ONLY (Right) Procedures During Hospitalization: Procedure(s) (LRB): REVISION JOINT TOTAL HIP ACETABULAR COMPONENT ONLY (Right) Consultations: Physical Therapy Case Management Internal Medicine Hospital Course: The patient is a 81 year old female who has been followed by Dr. Alo Lomeli MD, MD in clinic for Arthritis. It was determined she would benefit from surgery. The procedure, its risks, benefits, and potential complications were discussed in detail with the patient prior to surgery. Understanding of all topics was conveyed by the patient, and consent was given for surgery. The patient was electively admitted to the [facility] [place] on (Not on file). Surgery was scheduled and on 02/10/2021 she underwent a Procedure(s) (LRB): REVISION JOINT TOTAL HIP ACETABULAR COMPONENT ONLY (Right) . The procedure was tolerated well and she was sent to the post operative recovery room in stable condition, where she also did well. She was subsequently sent to her hospital room for postoperative management. Once on the floor her postoperative course was unremarkable and she did well. Her diet was advanced which she tolerated. Her pain was well controlled on oral medication alone prior to discharge. She worked with Physical and Occupational Therapy who recommended she be discharged . Her dressing remained clean dry and intact throughout her stay. She remained afebrile with stable vital signs throughout her stay. She was stable for discharge on the date listed above. Complete and comprehensive discharge instructions were provided to the patient as well as necessary prescriptions. The patient had no further questions and was advised to call with any questions, concerns, or problems. Patient was hemodynamically stable postoperatively. Relevant labs included: Hemoglobin (g/dL) Date Value 01/23/2021 10.8 (L) 01/20/2021 13.5 Hematocrit (%) Date Value 01/23/2021 35.6 (L) 01/20/2021 43.1 Discharge Antibiotics: None Prior to surgery the patient was treated with antibiotics and continued with antibiotics 24 hours postoperatively Transfers: PACU and then to the hospital surgical floor when PACU criteria was met. DVT Prophylaxis: see discharge medications Pain Control: Oral narcotics Complications: Continued throughout the hospital course without complications. Patient Condition @ Discharge: Stable Discharge Disposition: [facility] Facility Other Information: None Discharge Activity/Weight Bearing Status: WBAT in knee immobilizer Information Provided to Patient: none The patient was instructed to follow-up as listed below. Future Appointments Date Time Provider Department Center 03/09/2021 10:50 AM MAKAYLA KOTHARI 03/09/2021 11:20 AM MD [facility] Discharge Medications: Current Discharge Medication List START taking these medications doxycycline hyclate (VIBRAMYCIN) 100 mg Take 100 mg by mouth twice daily. Qty: 28 capsule Refills: 0 !! docusate sodium (COLACE) 100 mg Take 100 mg by mouth twice daily. Qty: 60 capsule Refills: 1 ondansetron (ZOFRAN) 4 mg Take 4 mg by mouth every 8 hours as needed for nausea/vomiting (For Nausea). Qty: 10 tablet Refills: [address] !! pantoprazole DR (PROTONIX) 20 mg Take 20 mg by mouth once daily. Qty: 14 tablet Refills: 0 !! meloxicam (MOBIC) 7.5 mg Take 7.5 mg by mouth once daily. Qty: 14 tablet Refills: 0 acetaminophen (TYLENOL) 500 mg Take 500 mg by mouth every 8 hours as needed for pain or fever (specify). Qty: 60 tablet Refills: 0 oxyCODONE IR (ROXICODONE) 5-10 mg Take 5-10 mg by mouth every 6 hours as needed for pain (major orthopedic surgery exception). Qty: 84 tablet Refills: 0 Associated Diagnoses:Acute postoperative pain !! naloxone (NARCAN) 4 mg/actuation nasal spray Use 1 spray in one nostril as needed for o (more content not included)... [facility] 02-03-2021 [facility] Telephone (ORLUOP) -- ROSEANN DALE ([id number]) 1940 F Date Time Provider Department 02/03/21 ALO LOMELI During your visit today, we recorded the following information about you: Neha Monge CALVIN 02/03/2021 12:40 PM Signed I called 12:33 PM February 03, 2021 and spoke to Roseann nurse, Diana. I explained that Roseann scheduled for Revision total hip replacement surgery on Saturday, February 10 and need Covid test done on February 07, 2021 and NEED results faxed to Dr Lomeli office by February 10 by 4 PM. Diana understands Roseann NPO after 12:01 AM on February 10. 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 - docusate sodium (COLACE) 100 mg capsule Take 1 capsule by mouth twice daily. - naloxone 4 mg/actuation nasal spray (NARCAN) Use 1 spray in one nostril as needed for overdose. May repeat every 2 to 3 min in alternating nostrils until medical assistance is available - acetaminophen (TYLENOL EXTRA STRENGTH) 500 mg tablet Take 2 tablets by mouth every 6 hours as needed for pain for up to 15 days. - meloxicam (MOBIC) 15 mg tablet Take 1 tablet by mouth once daily. - pantoprazole DR (PROTONIX) 40 mg tablet Take 1 tablet by mouth once daily. - CALCIUM ORAL Take by mouth once daily. - MULTI-VITAMIN ORAL Take by mouth once daily. - mupirocin (BACTROBAN) 2 % ointment Apply 0.5 inch with cotton swab ( Q tip) in each nostril in the morning and evening for 5 consecutive days. - gabapentin (NEURONTIN) 300 mg capsule Take 1 capsule by mouth three times daily for 30 days. - alendronate (FOSAMAX) 70 mg tablet Pt reports taking every - citalopram (CELEXA) 20 mg tablet TAKE 1 TABLET BY MOUTH EVERYDAY AT BEDTIME - furosemide (LASIX) 40 mg tablet Take 40 mg by mouth once daily. - lisinopril (ZESTRIL, PRINIVIL) 10 mg tablet Take 20 mg by mouth once daily. - diazePAM (VALIUM) 5 mg tablet Take 5 mg by mouth every 6 hours as needed. Problem List As Of Date 02/03/2021 Noted Resolved Right hip pain [M25.551] 11/12/2020 Myasthenia gravis (HCC) [G70.00] 01/20/2021 Primary hypertension [I10] 01/20/2021 Aortic regurgitation [I35.1] 01/20/2021 DDD (degenerative disc disease), lumbar [M51.36]01/20/2021 Swelling [R60.9] 01/20/2021 Status post right hip replacement [Z96.641] 01/21/2021 Encounter Status:Closed by NEHA MONGE on 02/03/21 Normal [facility] Transfer Documentson 021 Transfer Documents [id number]:127 Normal [facility] COVID-19 (MC)on 02-02-2021 SARS-CoV-2 (COVID-19) RNA JACKSON+probe Ql (Unsp spec) Not detected Normal Not Detected [facility] Comment on above: Result Comment: This test result should be correlated with clinical presentations and medical history by a healthcare provider to determine its clinical significance. This assay was performed by a reverse transcriptase real-time polymerase chain reaction (rt PCR) method on the [employer] system. This test has been authorized only for the detection of nucleic acid from SARS-CoV-2, not for any other viruses or pathogens. This test has not been FDA cleared or approved. This test has been authorized by FDA under an Emergency Use Authorization (EUA). This test is only authorized for the duration of time the declaration on that circumstances exist justifying the authorization emergency use of in vitro diagnostic tests for detection and/or diagnosis of COVID-19 infection under section 564 (b) (1) of the Act, 21 U.S.C. 360 bbb-3 (b) (1), unless authorization is terminated or revoked sooner. Performed By: #### 2 [id number] #### [facility] [address] [place] [address] SARS-CoV-2 (COVID-19) RNA JACKSON+probe Ql (Unsp spec) Pass Normal Pass [facility] Comment on above: Performed By: #### 2 [id number] #### [facility] [address] [place] [address] Specimen source Nom (Unsp spec) Nasal Normal [facility] Comment on above: Performed By: #### 2 [id number] #### [facility] [address] [place] [address] Employed in Healthcare NO Normal [facility] Comment on above: Performed By: #### 2 [id number] #### [facility] [address] [place] [address] First Test NO Normal [facility] Comment on above: Performed By: #### 2 [id number] #### [facility] [address] [place] [address] Hospitalized? YES Normal [facility] Comment on above: Performed By: #### 2 [id number] #### [facility] [address] [place] [address] ICU NO [facility] Comment on above: Performed By: #### 2 [id number] #### [facility] [address] [place] [address] ? NO Normal [facility] Comment on above: Performed By: #### 2 [id number] #### [facility] [address] [place] [address] Resides in a [facility] Care Setting NO Normal [facility] Comment on above: Performed By: #### 2 [id number] #### [facility] [address] [place] [address] Symptomatic as defined by [facility] NO Normal [facility] Comment on above: Performed By: #### 2 [id number] #### [facility] [address] [place] [address] Hct & Hgbon 02-02-2021 Hematocrit (Bld) [Volume fraction] 34.7 % Normal 34.0-46.0 [facility] Comment on above: Performed By: #### 2 [id number] ####[facility] [address] [place] [address] Hemoglobin (Bld) [Mass/Vol] 11.3 g/dL Low 12.0-16.0 [facility] Comment on above: Performed By: #### 2 [id number] ####[facility] [address] [place] [address] Inpatient Clinical Summaryon 02-02-2021 Inpatient Clinical Summary [facility] [address] [place], [place] [address] Clinical Summary Person Information: Name: ROSEANN DALE Age: 81 Years : 1940 Sex: Female PCP: BLUE NAVARRO DO Marital Status: Race: White Ethnicity: Non- or Language: Faroese Visit Id: Visit Reason: Post surgical problem; Hip pain-swelling; HIP PAIN, SWELLING, POST SURGICAL PROBLEM Speciality: Acuity: Enc Type: Observation Med Service: Medical Arrival: 01/31/2021 16:04:21 Discharge: Dispo Type: Admitted as IP to this [facility] Address: [address] [place] [phone] Provider Notes: Diagnosis: 1:Unspecified dislocation of right hip, initial encounter; 2:Unable to care for self; 3:Hypertension; 4:GERD (gastroesophageal reflux disease); 5:Depression; 6:Osteoarthritis; 7:DVT prophylaxis Problems No Problems Documented Smoking Status: Never Smoker Functional Status: Sensory Deficits: History of Falls: Mobility Assistance Prior to Admission: ADLs: Minimal assistance Current Level of Assistance for Self-Care/Mobility: Cognitive Status: Oriented x 3 Allergies No Known Medication Allergies Measurements: Height: 160.02 cm Weight: 74.5 kg Blood Pressure: 158 mmHg / 84 mmHg BMI: 30.15 kg/m2 Procedures History of total hip arthroplasty. (01/22/2021) Immunizations No Immunizations Documented This Visit Final Med List: acetaminophen (Acetaminophen Extra Strength Gelcaps 500 mg) 1 Tablets By Mouth every 6 hours as needed as needed for pain. alendronate (alendronate 70 mg oral tablet) 1 Tablets By Mouth every week. aspirin (aspirin 81 mg Oral EC Tab) 1 Tablets By Mouth 2 times a day. citalopram (citalopram 20 mg Tab) By Mouth at bedtime. diazepam (diazepam 5 mg Tab) 1 Tablets By Mouth every 6 hours as needed as needed for dizzines. docusate (docusate sodium 100 mg Cap) 1 Capsules By Mouth 2 times a day. furosemide (furosemide 40 mg Tab) 1 Tablets By Mouth every day. gabapentin (gabapentin 300 mg Cap) 1 Capsules By Mouth 2 times a day. lisinopril (lisinopril 20 mg Tab) 1 Tablets By Mouth every day. meloxicam (meloxicam 15 mg oral tablet) 1 Tablets By Mouth every day. pantoprazole (Pantoprazole [address] Tab) 1 Tablets By Mouth every day. tramadol (Ultram 50 mg Tab) 1 Tablets By Mouth every 6 hours as needed Pain. Refills: 0. Care Team Members: Attending Physician: Naomy MONTERROSO MD Consulting Physician: Referring Physician: Follow up: With: Address: When: ALO LOMELI [address] [place] [address] Business (1) Comments: Call for followup appointment for next week. With: Address: When: BLUE NAVARRO [address] [place], [place] [id number] Business (1) Comments: Call for followup appointment 7-10 days Patient Education Information: Normal [facility] Inpatient Patient Summaryon 02-02-2021 Inpatient Patient Summary [address] [address] Patient Discharge Instructions PERSON INFORMATION Name: ROSEANN DALE Date of : 1940 Current Date: 02/02/2021 11:00:23 PHYSICIANS Admitting Physician: Naomy MONTERROSO MD Primary Care Physician: BLUE NAVARRO DO PCP Comment: Discharge Diagnosis: 1:Unspecified dislocation of right hip, initial encounter; 2:Unable to care for self; 3:Hypertension; 4:GERD (gastroesophageal reflux disease); 5:Depression; 6:Osteoarthritis; 7:DVT prophylaxis Condition at Discharge: Stable ROSEANN DALE has been given the following list of follow-up instructions, prescriptions, and patient education materials: PATIENT FOLLOW-UP INFORMATION Diet: Regular Discharge Activity: Activity as tolerated Discharge Restrictions: Wound Care Instructions: Remove Your Dressing In Days Call Your Doctor For: IF UNABLE TO CONTACT YOUR PHYSICIAN AND YOU FEEL IT IS AN EMERGENCY, GO TO THE NEAREST EMERGENCY ROOM OR CALL 911 Home Treatment: Devices/Equipment: Special Services: Additional Instructions: WBAT with knee immobilizer Primary Care Physician to provide the following pending test results: None Follow up: With: Address: When: ALO LOMELI [address] [place] [address] Business (1) Comments: Call for followup appointment for next week. With: Address: When: BLUE MELANIE [address] [facility] [place] [address] Business (1) Comments: Call for followup appointment 7-10 days In the event that this physician does not participate in your insurance network, please consult with your insurance company to find a nearby participating provider. Comment: SUYAPA Goff SANDRA R, have received the attached patient education materials/instructions and have verbalized understanding: Patient Signature __ Date Clinican/Nurse Signature Date HERE ARE THE MEDICATION CHANGES THAT OCCURRED DURING YOUR HOSPITAL STAY New Medications Printed Prescriptions tramadol (Ultram 50 mg Tab) 1 Tablets By Mouth every 6 hours as needed Pain. Refills: 0. Last Dose: N ext Dose: Medications to Continue Taking That Have Changed Other Medications START: aspirin (aspirin 81 mg Oral EC Tab) 1 Tablets By Mouth 2 times a day. Last Dose: N ext Dose: STOP: aspirin (aspirin 81 mg oral capsule) 81 Milligram By Mouth 2 times a day. START: diazepam (diazepam 5 mg Tab) 1 Tablets By Mouth every 6 hours as needed as needed for dizzines. Last Dose: N ext Dose: STOP: diazepam By Mouth every 6 hours. START: docusate (docusate sodium 100 mg Cap) 1 Capsules By Mouth 2 times a day. Last Dose: N ext Dose: STOP: docusate (docusate sodium 100 mg Cap) 1 Capsules By Mouth 2 times a day as needed for constipation. START: lisinopril (lisinopril 20 mg Tab) 1 Tablets By Mouth every day. Last Dose: N ext Dose: STOP: lisinopril 20 Milligram By Mouth every day. START: meloxicam (meloxicam 15 mg oral tablet) 1 Tablets By Mouth every day. Last Dose: N ext Dose: STOP: meloxicam 15 Milligram By Mouth every day. START: pantoprazole (Pantoprazole [address] Tab) 1 Tablets By Mouth every day. Last Dose: N ext Dose: STOP: pantoprazole 40 Milligram By Mouth every day. Medications to Continue with No Changes Other Medications acetaminophen (Acetaminophen Extra Strength Gelcaps 500 mg) 1 Tablets By Mouth every 6 hours as needed as needed for pain. Last Dose: N ext Dose: alendronate (alendronate 70 mg oral tablet) 1 Tablets By Mouth every week. Last Dose: N ext Dose: citalopram (citalopram 20 mg Tab) By Mouth at bedtime. Last Dose: N ext Dose: furosemide (furosemide 40 mg Tab) 1 Tablets By Mouth every day. Last Dose: N ext Dose: gabapentin (gabapentin 300 mg Cap) 1 Capsules By Mouth 2 times a day. Last Dose: N ext Dose: Comment: MEDICATION LIST PROVIDED FOR YOU IS A LIST OF YOUR CURRENT MEDICATIONS. PLEASE CARRY THIS WITH YOU AT ALL TIMES. acetaminophen (Acetaminophen Extra Strength Gelcaps 500 mg) 1 Tablets By Mouth every 6 hours as needed as needed for pain. alendronate (alendronate 70 mg oral tablet) 1 Tablets By Mouth every week. aspirin (aspirin 81 mg Oral EC Tab) 1 Tablets By Mouth 2 times a day. citalopram (citalopram 20 mg Tab) By Mouth at bedtime. diazepam (diazepam 5 mg Tab) 1 T (more content not included)... Normal [facility] Interdisciplinary Note - Ferny e Manageron 02-02-2021 Interdisciplinary Note - Electrician Office Pt is awake and alert in bed, previously rounded with Ella REPATCHER . PCP verified and insurance information reviewed and DME discussed. Contact information provided and white board updated. Pt is awake and alert in bed, aware of pending referral to [facility], plan to DC tomorrow. Pending therapy evals. Updated on change to inpt status, Medicare rights reveiwed, form signed and original provided to pt. States family is aware of plan and declines need for CRM to update at this time. pt updated on now acceptance to [facility]. and ready to DC when able. Updated they will require a Covid test priro to DC and ordered at this time. Pt calls family to update. Discussed transport and options. States she is not sure if she feels comfortable in private vehicle if [facility] does not have transport. States she will seee how she does with therapy and see. Discussed cost of WC van transpot van . States she will decide after working with therapy. CRM following. CRM returned to pt room. Updated on plan to DC today. [facility] does not have transport available and Covid test will not be completed until 5003-2530. Pt states she will have her family transport her, states , they already have the car seat set up for me Kayli VENEGAS updated. Normal [facility] Comment on above: Result Comment: Elec tronically Signed By: Johnathan VENEGAS, Zohra\.br\Date and Time Signed: 02/02/21 12:04 EDT Interdisciplinary Note - Diana n 02-02-2021 Interdisciplinary Note - OT OT six clicks score 16/24 = SNF. pt requires assist to nataly/doff rt knee immobilizer d/t posterior hip disloc precautions. Patient requires extra time and cga w/ transfers and dynamic standing adls. OT to follow daily to progress as tolerates. Normal [facility] Lyteson 02-02-2021 Anion gap [Moles/Vol] 13 mmol/L Normal 6-16 [facility] Comment on above: Performed By: #### 2 [id number], [id number] ####[facility] [address] [place] [address] Chloride [Moles/Vol] 98 mmol/L Low 101-111 [facility] Comment on above: Performed By: #### 2 [id number], [id number] ####[facility] [address] [place] [address] CO2 [Moles/Vol] 29 mmol/L Normal - [facility] Comment on above: Performed By: #### 2 [id number], [id number] ####[facility] [address] [place] [address] Potassium [Moles/Vol] 3.6 mmol/L Normal 3.5-5.3 [facility] Comment on above: Performed By: #### 2 [id number], [id number] ####[facility] [address] [place] [address] Sodium [Moles/Vol] 136 mmol/L Normal 135-145 [facility] Comment on above: Performed By: #### 2 [id number], [id number] ####[facility] [address] [place] [address] Message from Medicareon 01-05 Message from Medicare [id number]:127 Normal [facility] Outside Recordson 02-02-2021 Outside Records [id number]:127 Normal [facility] Progress Note-Physicianon Progress Note-Physician Assessment/Plan 1. Unspecified dislocation of right hip, initial encounter (S73.004A: Unspecified dislocation of right hip, initial encounter) -Status post closed reduction in the emergency department. Well-tolerated. -Pt is s/p right total hip arthroplasty done at [facility] on 01/22/2021; I did call and speak to Dr.Kim Lomeli orthopedic office and spoke to Neha VENEGAS; Per recommendations to be WBAT and knee immobilizer. He will set up f/u appt for next week-he will call daughter to do this. -Continue Supportive care. -Pain control as needed. -Knee immobilizer and walker use for time being. -Covid test pending for SNF 2. Unable to care for self (Z78.9: Other specified health status) -Patient unable to care for self with knee immobilizer and walker use. -Physical therapy and Occupational Therapy to evaluate patient and make recommendations. 3. Hypertension (I10: Essential (primary) hypertension) -Hydralazine IV as needed. -Lisinopril, Lasix 4. GERD (gastroesophageal reflux disease) (K21.9: Gastro-esophageal reflux disease without esophagitis) -PPI 5. Depression (F32.9: Major depressive disorder, single episode, unspecified) -Citalopram, Diazepam 6. Osteoarthritis (M19.90: Unspecified osteoarthritis, unspecified site) -Meloxicam 7. DVT prophylaxis (Z29.9: Encounter for prophylactic measures, unspecified) SCD, heparin Subjective Pt c/o 3/10 hip pain today. States pain meds are effective. Is expelling flatus. Pending PT eval for d/c recommendations. Discussed speaking with Dr. Lomeli yesterday and his recommendations. Pt is agreeable to plan. Slept well last night. No issues; appetite good. Objective Vitals & Measurements T: 36.6 ?C (Oral) TMIN: 36.6 ?C (Oral) TMAX: 37 ?C (Oral) HR: 78(Monitored) RR: 16 BP: 158/84 SpO2: 95% WT: 74.5 kg Intake & Output This visit (24 hour periods starting at 07:00 EDT) 02/02/21 * 02/01/21 01/31/21 Total Summary Intake mL -- 367.5 640.5 Output mL -- 350 -- Fluid Balance -- 17.5 640.5 Intake (4) Sodium Chloride 0.9% mL -- 367.5 632.5 fentanyl mL -- -- 1 ondansetron mL -- -- 2 propofol mL -- -- 5 Total -- 367.5 640.5 Output (1) Urine Voided mL -- 350 -- Total -- 350 -- Counts (0) * This column has not completed the indicated time period. Physical Exam General: alert, no acute distress Skin: warm, dry Head: no trauma, normocephalic Neck: Trachea midline, no adenopathy, no tenderness Eye: normal conjunctiva, sclera clear ENMT: oral mucosa moist, no pharyngeal erythema or exudate. hearing grossly intact Cardiovascular: regular rate and rhythm, no murmur/gallop/rub Respiratory: Lungs CTA, respirations non labored , no w/r/r Gastrointestinal: Positive bowel sound, soft, non distended, no tenderness, no guarding. Extremities: Right knee immobilizer present, right toes neurovascularly intact, minimal soreness at right hip with palpation Osteopathic: Deferred due to being noncontributory to current case. Neurological: oriented x 4, LOC appropriate for age, CN II-XII intact, motor strength equal & normal bilaterally, sensation equal & normal bilaterally, speech normal Psychiatric: cooperative, affect appropriate for age, normal judgement, normal psychiatric thoughts. Lab Results Hgb: 11.3 gm/dL Low (02/02/21 05:19:00) Hct: 34.7 % (02/02/21 05:19:00) Sodium Lvl: 136 mmol/L (02/02/21 05:19:00) Potassium Lvl: 3.6 mmol/L (02/02/21 05:19:00) Chloride: 98 mmol/L Low (02/02/21 05:19:00) CO2: 29 mmol/L (02/02/21 05:19:00) AGAP: 13 mEq/L (02/02/21 05:19:00) First Test: NO (02/02/21 10:25:00) Employed in Healthcare: NO (02/02/21 10:25:00) Symptomatic as defined by CDC: NO (02/02/21 10:25:00) Hospitalized?: YES (02/02/21 10:25:00) ICU: NO (02/02/21 10:25:00) Resides in a Congregate Care Setting: NO (02/02/21 10:25:00) ?: NO (02/02/21 10:25:00) Problem List/Past Medical History Ongoing No qualifying data Historical OA - Osteoarthritis Medications Inpatient acetaminophen 325 mg Tab, 650 mg= 2 tab(s), Oral, q6hr, PRN aspirin 81 mg Oral EC Tab, 81 mg= 1 tab(s), Oral, BID citalopram 20 mg Tab, 20 mg= 1 tab(s), Oral, Bedtime docusate sodium 100 mg Cap, 100 mg= 1 cap(s), Oral, BID, PRN furosemide 40 mg Tab, 40 mg= 1 tab(s), Oral, Daily heparin 5000 units/mL Inj, 5000 unit(s)= 1 mL, SubCutaneous, BID hydrALAZINE 20 mg/mL Inj, 10 mg= 0.5 mL, IV Push, q6hr, PRN ibuprofen 800 mg Tab, 800 mg= 1 tab(s), Oral, TID, PRN lisinopril 20 mg Tab, 20 mg= 1 tab(s), Oral, Daily Pantoprazole [address] Tab, 40 mg= 1 tab(s), Oral, Daily Ultram 50 mg Tab, 50 mg= 1 tab(s), Oral, q6hr, PRN Zofran 4 mg/2 mL Injection, 4 mg= 2 mL, IV Push, q6hr, PRN Home Acetaminophen Extra Strength Gelcaps 500 mg, 500 mg= 1 tab(s), Oral, q6hr, PRN alendronate 70 mg oral tablet, 70 mg= 1 tab(s), Oral, qWeek aspirin 81 mg Ora (more content not included)... Normal [facility] Comment on above: Result Comment: Elec tronically Signed By: Kristie ROMERO\.br\Date and Time Signed: 02/02/21 10:57 EDT\.br\Electronically Co-Signed By: Nancy ZHANG MD\.br\Date and Time Co-Signed: 02/02/21 11:51 EDT BMPon 02-01-2021 Creatinine [Mass/Vol] 0.7 mg/dL Normal 0.5-1.3 [facility] Comment on above: Performed By: #### 2 [id number], [id number] ####[facility] [address] [place] [address] Urea nitrogen [Mass/Vol] 14 mg/dL Normal 5-21 [facility] Comment on above: Performed By: #### 2 [id number], [id number], [id number] ####[facility] [address] [place] [address] Urea nitrogen/Creatinine [Mass ratio] 20 No Units Normal 10-20 [facility] Comment on above: Performed By: #### 2 [id number], [id number], [id number] ####[facility] [address] [place] [address] Anion gap [Moles/Vol] 13 mmol/L Normal 6-16 [facility] Comment on above: Performed By: #### 2 230012, [id number], [id number] ####[facility] [address] [facility] [address] Calcium [Mass/Vol] 7.8 mg/dL Low 8.9-11.1 [facility] Comment on above: Performed By: #### 2 040667, [id number], [id number] ####[facility] [address] [facility] [place] [address] Chloride [Moles/Vol] 100 mmol/L Low 101-111 [facility] Comment on above: Performed By: #### 2 [id number], [id number], [id number] ####[facility] [address] [facility] [address] CO2 [Moles/Vol] 28 mmol/L Normal 21-31 [facility] Comment on above: Performed By: #### 2 137066, [id number], [id number] ####[facility] [address] [facility] [address] Glucose [Mass/Vol] 120 mg/dL Normal 55-199 [facility] Comment on above: Result Comment: If t his glucose result represents a fasting glucose, interpretation should refer to the following reference range: 55-99 mg/dL Performed By: #### 2 [id number], [id number], [id number] ####[facility] [address] [facility] [address] Potassium [Moles/Vol] 3.3 mmol/L Low 3.5-5.3 [facility] Comment on above: Performed By: #### 2 816079, [id number], [id number] ####[facility] [address] [facility] [address] Sodium [Moles/Vol] 138 mmol/L Normal 135-145 [facility] Comment on above: Performed By: #### 2 835699, [id number], [id number] ####[facility] [address] [place] [address] CBC w/Indiceson 02-01-2021 Erythrocyte distribution width (RBC) [Ratio] 13.3 % Normal 10.9-14.2 [facility] Comment on above: Performed By: #### 2 [id number] #### [facility] [address] [place] [address] Hematocrit (Bld) [Volume fraction] 32.5 % Low 34.0-46.0 [facility] Comment on above: Performed By: #### 2 293445 #### [facility] [address] [place] [address] Hemoglobin (Bld) [Mass/Vol] 10.6 g/dL Low 12.0-16.0 [facility] Comment on above: Performed By: #### 2 [id number] #### [facility] [address] [place] [address] MCH (RBC) [Entitic mass] 29.0 pg Normal 27.0-34.0 [facility] Comment on above: Performed By: #### 2 305716 #### [facility] [address] [place] [address] MCHC (RBC) [Mass/Vol] 32.5 g/dL Normal 31.4-36.0 [facility] Comment on above: Performed By: #### 2 375413 #### [facility] [address] [place] [address] MCV (RBC) [Entitic vol] 89.4 fL Normal 80.0-100.0 [facility] Comment on above: Performed By: #### 2 491585 #### [facility] [address] [place] [address] Platelet mean volume (Bld) [Entitic vol] 6.8 fL Normal 6.4-10.8 [facility] Comment on above: Performed By: #### 2 667257 #### [facility] [address] [place] [address] Platelets (Bld) [#/Vol] 280.0 E9/L Normal 150.0-500.0 [facility] Comment on above: Performed By: #### 2 391308 #### [facility] [address] [place] [address] RBC (Bld) [#/Vol] 3.6 E12/L Low 4.3-5.9 [facility] Comment on above: Performed By: #### 2 820261 #### [facility] [address] [place] [address] WBC corrected for nucl RBC Auto (Bld) [#/Vol] 6.1 E9/L Normal 4.0-11.0 [facility] Comment on above: Performed By: #### 2 553260 #### [facility] [address] [place] [address] Lee 02-01-2021 CNPN Telephone (ORLUOP) -- ROSEANN DALE ([id number]) 1940 F Date Time Provider Department 02/01/21 ALO LOMELI During your visit today, we recorded the following information about you: Neha MongeCALVIN 02/01/2021 10:29 AM Signed I called Mirela daughter Elizabeth. Elizabeth states her mom, Mirela, was getting out of a recliner like chair and felt her hip go out Elizabeth called 911 and took Mirela to [facility]. Radiograph reviewed in care everywhere. Elizabeth states momMirela is in hospital with long black brace on her leg so she cannot bend her knee. Hip Replacement Report IMPRESSION: SUPERIORLY AND POSTERIORLY DISLOCATED RIGHT PROSTHETIC FEMORAL HEAD. CLINICAL HISTORY: Hip Replacement COMPARISON: None. FINDINGS: Supine AP film of the pelvis demonstrates posterior superior dislocation of the right prosthetic femoral head on right acetabulum. There is no obvious fracture. There is mild degenerative osteoarthritis of the left hip joint. Bony pelvis is unremarkable. There is suggestion of contusion along the lateral aspect of the right proximal femur. Neha MongeCALVIN 02/01/2021 10:29 AM Signed Kristie MEJIAS with [facility]ist group at [facility] called and states Mirela was admitted from ER and hip reduced. She does have a knee immobilizer on now and has pain with standing and walking and is very fearful of putting weight on leg. Kristie states plan is for Mirela to go to rehab facility for physical therapy. Dr Lomeli notified CALVIN Almeida . Allergies As of Date: 02/01/2021 (No Known Allergies) Date Reviewed: 01/22/2021 Reviewed by: Shayy Koenig RN - Fully Assessed 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: Patient Update [1234] Prescriptions as of 08/17/2021 - traMADol (ULTRAM) 50 mg tablet Take 50 mg by mouth every 6 hours as needed for pain. - LORazepam (ATIVAN) 0.5 mg Take 0.5 mg by mouth twice daily as needed. - magnesium hydroxide (MILK OF MAGNESIA) 400 mg/5 mL suspension Take by mouth once daily as needed. - docusate sodium (COLACE) 100 mg capsule Take 1 capsule by mouth twice daily. - ondansetron (ZOFRAN) 4 mg tablet Take 1 tablet by mouth every 8 hours as needed for nausea/vomiting (For Nausea). - pantoprazole DR (PROTONIX) 20 mg tablet Take 1 tablet by mouth once daily for 14 days. - acetaminophen (TYLENOL EXTRA STRENGTH) 500 mg tablet Take 1 tablet by mouth every 8 hours as needed for pain or fever (specify). - naloxone (NARCAN) 4 mg/actuation nasal spray Use 1 spray in one nostril as needed for overdose. May repeat every 2 to 3 min in alternating nostrils until medical assistance is available - aspirin, enteric coated (ECOTRIN LOW STRENGTH) 81 mg EC tablet Take 1 tablet by mouth twice daily. - naloxone 4 mg/actuation nasal spray (NARCAN) Use 1 spray in one nostril as needed for overdose. May repeat every 2 to 3 min in alternating nostrils until medical assistance is available - pantoprazole DR (PROTONIX) 40 mg tablet Take 1 tablet by mouth once daily. - CALCIUM ORAL Take by mouth once daily. - MULTI-VITAMIN ORAL Take by mouth once daily. - gabapentin (NEURONTIN) 300 mg capsule Take 1 capsule by mouth three times daily for 30 days. - alendronate (FOSAMAX) 70 mg tablet Pt reports taking every - citalopram (CELEXA) 20 mg tablet TAKE 1 TABLET BY MOUTH EVERYDAY AT BEDTIME - furosemide (LASIX) 40 mg tablet Take 40 mg by mouth once daily. - lisinopril (ZESTRIL, PRINIVIL) 10 mg tablet Take 20 mg by mouth once daily. - diazePAM (VALIUM) 5 mg tablet Take 5 mg by mouth every 6 hours as needed. Problem List As Of Date 02/01/2021 Noted Resolved Right hip pain [M25.551] 11/12/2020 Myasthenia gravis (HCC) [G70.00] 01/20/2021 Primary hypertension [I10] 01/20/2021 Aortic regurgitation [I35.1] 01/20/2021 DDD (degenerative disc disease), lumbar [M51.36]01/20/2021 Swelling [R60.9] 01/20/2021 Status post right hip replacement [Z96.641] 01/21/2021 Encounter Status:Closed by NEHA MONGE on 08/17/21 Normal [facility] EMS Documentationon 02-02-20 EMS Documentation [id number]#[id number]:127 Normal [facility] Interdisciplinary Note - Diana n 02-01-2021 Interdisciplinary Note - OT 02/01/21: Ot order received and chart review completed. Weightbearing status unknown and [facility] has call out to original orthopedic surgeon for further direction regarding precautions/wb. Will await ortho information prior to initiating eval. Normal [facility] Interdisciplinary Note - Soc ial Workeron 02-01-2021 Interdisciplinary Note - Complaint Investigator SW consult for placement was received. SW will continue to collaborate/work closely with CRM, patient, and family with any discharge needs/concerns. SW will remain available. Normal [facility] Message from Medicareon 01-05 Message from Medicare [id number]#1.00CD:127 Normal [facility] PT & PTTon 02-01-2021 aPTT Coag (PPP) [Time] 28.9 second(s) Normal 25.1-36.5 [facility] Comment on above: Result Comment: Hepa rin therapeutic range (represented by Anti-Factor Xa activity of 0.2 - 0.4 U/mL) corresponds to PTT of 56.6 - 109.0 sec. Performed By: #### 2 [id number], [id number], [id number] ####[facility] [address] [place] [address] INR Coag (PPP) [Relative time] 1.1 {INR} Invalid Interpretation Code [facility] Comment on above: Result Comment: INR results are specifically intended to assess patients stabilized on long-term Anticoagulation therapy suggested INR?s ?Less Intensive Anticoagulation? 2.0 ? 3.0 Conventional Range 3.0 ? 4.5 Performed By: #### 2 [id number], [id number], [id number] ####[facility] [address] [place] [address] PT Coag (PPP) [Time] 12.6 second(s) Normal 10.2-12.9 [facility] Comment on above: Performed By: #### 2 264820, [id number], [id number] ####[facility] [address] [place] [address] Progress Note-Physicianon Progress Note-Physician Assessment/Plan 1. Unspecified dislocation of right hip, initial encounter (S73.004A: Unspecified dislocation of right hip, initial encounter) -Status post closed reduction in the emergency department. Well-tolerated. -Pt is s/p right total hip arthroplasty done at [facility] on 01/22/2021; I did call and [facility] and spoke to RN; She did send message to who was in surgery and will call back later today. -Continue Supportive care. -Pain control as needed. -Knee immobilizer and walker use for time being. 2. Unable to care for self (Z78.9: Other specified health status) -Patient unable to care for self with knee immobilizer and walker use. -Physical therapy and Occupational Therapy to evaluate patient and make recommendations. 3. Hypertension (I10: Essential (primary) hypertension) -Hydralazine IV as needed. -Lisinopril, Lasix 4. GERD (gastroesophageal reflux disease) (K21.9: Gastro-esophageal reflux disease without esophagitis) -PPI 5. Depression (F32.9: Major depressive disorder, single episode, unspecified) -Citalopram, Diazepam 6. Osteoarthritis (M19.90: Unspecified osteoarthritis, unspecified site) -Meloxicam 7. DVT prophylaxis (Z29.9: Encounter for prophylactic measures, unspecified) SCD, heparin Disposition: pt will change to inpt status and will require >2 midnight stays for further work up and treatment. -pt high risk for falls and injury. Call pending to Dr.Kim Lomeli orthopedic surgeon at [facility] who performed pt's RTH arthroplasty on 01/22/21. Subjective Patient doing well today. States she is having no pain. Feels okay. States she does not feel she is able to walk. She is pending PT/OT evaluation and recommendations. States that she follows with Dr. Alo Lomeli MD-will call and notify of pt admission. Objective Vitals & Measurements T: 36.6 ?C (Oral) TMIN: 36.4 ?C (Oral) TMAX: 36.8 ?C (Oral) HR: 79(Monitored) RR: 16 BP: 155/73 SpO2: 93% WT: 76 kg Intake & Output This visit (24 hour periods starting at 07:00 EDT) 02/01/21 * 01/31/21 01/30/21 Total Summary Intake mL 367.5 640.5 -- Output mL 350 -- -- Fluid Balance 17.5 640.5 -- Intake (4) Sodium Chloride 0.9% mL 367.5 632.5 -- fentanyl mL -- 1 -- ondansetron mL -- 2 -- propofol mL -- 5 -- Total 367.5 640.5 -- Output (1) Urine Voided mL 350 -- -- Total 350 -- -- Counts (0) * This column has not completed the indicated time period. Physical Exam General: alert, no acute distress Skin: warm, dry Head: no trauma, normocephalic Neck: Trachea midline, no adenopathy, no tenderness Eye: normal conjunctiva, sclera clear ENMT: oral mucosa moist, no pharyngeal erythema or exudate. hearing grossly intact Cardiovascular: regular rate and rhythm, no murmur/gallop/rub Respiratory: Lungs CTA, respirations non labored , no w/r/r Gastrointestinal: Positive bowel sound, soft, non distended, no tenderness, no guarding. Extremities: Right knee immobilizer present, right toes neurovascularly intact, minimal soreness at right hip with palpation Osteopathic: Deferred due to being noncontributory to current case. Neurological: oriented x 4, LOC appropriate for age, CN II-XII intact, motor strength equal & normal bilaterally, sensation equal & normal bilaterally, speech normal Psychiatric: cooperative, affect appropriate for age, normal judgement, normal psychiatric thoughts. Lab Results WBC: 6.1 E9/L (02/01/21 07:51:00) RBC: 3.6 E12/L Low (02/01/21 07:51:00) Hgb: 10.6 gm/dL Low (02/01/21 07:51:00) Hct: 32.5 % Low (02/01/21 07:51:00) MCV: 89.4 fL (02/01/21 07:51:00) MCH: 29 pg (02/01/21 07:51:00) MCHC: 32.5 gm/dL (02/01/21 07:51:00) RDW: 13.3 % (02/01/21 07:51:00) Platelet: 280 E9/L (02/01/21 07:51:00) MPV: 6.8 fL (02/01/21 07:51:00) PT: 12.6 second(s) (02/01/21 07:51:00) INR: 1.1 (02/01/21:51:00) PTT: 28.9 second(s) (02/01/21 07:51:00) Glucose Lvl: 120 mg/dL (02/01/21 07:51:00) BUN: 14 mg/dL (02/01/21 07:51:00) Creatinine: 0.7 mg/dL (02/01/21 07:51:00) eGFR: >60 (02/01/21 07:51:00) eGFR AA: >60 (02/01/21 07:51:00) BUN/Creat Ratio: 20 (02/01/21 07:51:00) Sodium Lvl: 138 mmol/L (02/01/21 07:51:00) Potassium Lvl: 3.3 mmol/L Low (02/01/21 07:51:00) Chloride: 100 mmol/L Low (02/01/21 07:51:00) CO2: 28 mmol/L (02/01/21 07:51:00) AGAP: 13 mEq/L (02/01/21 07:51:00) Calcium Lvl: 7.8 mg/dL Low (02/01/21 07:51:00) Problem List/Past Medical History Ongoing No qualifying data Historical OA - Osteoarthritis Medications Inpatient acetaminophen 325 mg Tab, 650 mg= 2 tab(s), Oral, q6hr, PRN aspirin 81 mg Oral EC Tab, 81 mg= 1 tab(s), Oral, BID citalopram 20 mg Tab, 20 mg= 1 tab(s), Oral, Bedtime docusate sodium 100 mg Cap, 100 mg= 1 cap(s), Oral, BID, PRN furosemide 40 mg Tab, 40 mg= 1 tab(s), Oral, Daily heparin 5000 unit (more content not included)... Normal [facility] Comment on above: Result Comment: Elec tronically Signed By: Kristie ROMERO\.br\Date and Time Signed: 02/01/21 10:32 EDT\.br\Electronically Co-Signed By: Kristie ROMERO\.br\Date and Time Co-Signed: 02/01/21 10:43 EDT\.br\Electronically Co-Signed By: Nancy ZHANG MD\.br\Date and Time Co-Signed: 02/01/21 12:54 EDT XR Hip 1 View Righton 2020 XR Hip 1 View Right Exam Date/Time: 01/31/2021 18:44 EDT Reason for Exam: Other (please specify) Report IMPRESSION: SUCCESSFUL REDUCTION OF THE DISLOCATED THE RIGHT HIP JOINT. CLINICAL HISTORY: Post reduction COMPARISONS: AP PELVIS ON 01/31/2021 4:32 PM FINDINGS: AP view of the right hip was obtained by portable technique. The dislocated prosthetic right hip joint was successfully reduced. There is no acute fracture. There is soft tissue contusion along the lateral aspect of the right proximal femur. FINAL REPORT Dictated: 02/01/2021 8:14 am Elijah Devi M.D. Signed (Electronic Signature): 02/01/2021 8:14 am Signed by: Elijah Devi M.D. Transcribed by: KASSIE Technologist: BONNY Davalos [facility] XR Pelvis 1 or 2 Viewson XR Pelvis 1 or 2 Views Exam Date/Time: 01/31/2021 16:39 EDT Reason for Exam: Hip Replacement Report IMPRESSION: SUPERIORLY AND POSTERIORLY DISLOCATED RIGHT PROSTHETIC FEMORAL HEAD. CLINICAL HISTORY: Hip Replacement COMPARISON: None. FINDINGS: Supine AP film of the pelvis demonstrates posterior superior dislocation of the right prosthetic femoral head on right acetabulum. There is no obvious fracture. There is mild degenerative osteoarthritis of the left hip joint. Bony pelvis is unremarkable. There is suggestion of contusion along the lateral aspect of the right proximal femur. FINAL REPORT Dictated: 02/01/2021 7:41 am Elijah Devi M.D. Signed (Electronic Signature): 02/01/2021 7:41 am Signed by: Elijah Devi M.D. Transcribed by: KASSIE Technologist: BONNY Davalos [facility] eGFRon 02-01-2021 GFR/1.73 sq M.predicted among blacks MDRD (S/P/Bld) [Vol rate/Area] mL/min/{1.73_m2} Normal >=59 [facility] Comment on above: Order Comment: Order added by Discern Expert. Result Comment: eGFR is race adjusted. AA=. Performed By: #### 2 [id number], [id number], [id number] ####[facility] [address] [place] [address] GFR/1.73 sq M.predicted among non-blacks MDRD (S/P/Bld) [Vol rate/Area] mL/min/{1.73_m2} Normal >=59 [facility] Comment on above: Order Comment: Order added by Discern Expert. Result Comment: Finishing Range Feeder sam kidney disease could be indicated at eGFR's of less than 60 mL/min/1.73m2. Kidney failure is indicated at less than 15 mL/min/1.73m2. Performed By: #### 2 [id number], [id number], [id number] ####[facility] [address] [place] [address] Consent for Procedure/Surger yon 01-31-2021 Consent for Procedure/Surgery [id number]#1.00CD:127 Normal [facility] Consent for Procedure/Surgery [id number]#[id number]:127 Normal [facility] Consent for Treatmenton 01-04 Consent for Treatment [id number]#1.00CD:127 Normal [facility] ED Clinical Summaryon 2020 ED Clinical Summary (Inserted Image. Freya ble to display) [address] [address] ED Clinical Summary Person Information Name: ROSEANN DALE/[facility] Age: 81 Years : 1940 Sex: Female Language: Faroese PCP: BLUE NAVARRO DO Marital Status: Visit Id: Visit Reason: Post surgical problem; Hip pain-swelling; HIP PAIN, SWELLING, POST SURGICAL PROBLEM Speciality: Acuity: 4 Enc Type: Observation Med Service: Medical Arrival: 01/31/2021 16:04:21 Discharge: LOS: 000 05:32 Checkin: 01/31/2021 16:04:21 Checkout: 01/31/2021 21:36:17 Dispo Type: Admitted as IP to this [facility] EVENTS: Event Name Event Status Request Date/Time Start Date/Time Complete Date/Time Arrive Complete 01/31/2021 16:04:21 01/31/2021 16:04:21 01/31/2021 16:04:21 Document Home Meds Request 01/31/2021 16:04:21 Triage Complete 01/31/2021 16:04:21 01/31/2021 16:10:22 01/31/2021 16:10:22 Bed Assign Complete 01/31/2021 16:07:41 01/31/2021 16:07:41 01/31/2021 16:07:41 Dr Exam Complete 01/31/2021 16:07:41 01/31/2021 16:08:10 01/31/2021 16:08:10 RN Exam Complete 01/31/2021 16:07:41 01/31/2021 16:55:00 01/31/2021 16:55:00 Registration Complete 01/31/2021 16:08:10 01/31/2021 16:36:21 01/31/2021 16:36:21 X-Ray Cancel 01/31/2021 16:13:20 01/31/2021 16:27:48 01/31/2021 16:38:57 Reg Complete Request 01/31/2021 16:36:21 Reg Bed Request Complete 01/31/2021 16:36:21 01/31/2021 16:36:21 01/31/2021 16:36:21 X-Ray Complete 01/31/2021 16:38:55 01/31/2021 16:38:56 01/31/2021 16:39:57 Wet Read Request 01/31/2021 16:39:57 Meds Admin Complete 01/31/2021 16:46:20 01/31/2021 16:58:21 Fall Risk Request 01/31/2021 16:55:00 Meds Admin Complete 01/31/2021 17:19:19 01/31/2021 17:23:14 Patient Care Request 01/31/2021 17:26:10 Meds Admin Complete 01/31/2021 17:26:10 01/31/2021 18:35:45 X-Ray Cancel 01/31/2021 18:37:27 01/31/2021 18:44:05 X-Ray Cancel 01/31/2021 18:37:32 01/31/2021 18:43:44 X-Ray Complete 01/31/2021 18:44:04 01/31/2021 18:44:08 01/31/2021 18:44:17 Patient Care Complete 01/31/2021 18:44:09 01/31/2021 19:08:29 Consult Request 01/31/2021 18:52:09 Hospitalist Consult Request 01/31/2021 18:52:09 Patient Care Request 01/31/2021 20:38:01 Patient Care Request 01/31/2021 21:21:55 Patient Care Request 01/31/2021 21:21:55 Patient Care Request 01/31/2021 21:21:55 Patient Care Request 01/31/2021 21:21:56 ADDRESS: [address] [place] [phone] PHYS DOC NOTES: MEDICAL INFORMATION: Prescriptions Given: PATIENT EDUCATION INFORMATION: Instructions: Follow up: DIAGNOSIS: Unspecified dislocation of right hip, initial encounter Normal [facility] ED Note-Physicianon 02-01-20 ED Note-Physician Basic Information Time Seen: Dawood Garber DO 01/31/2021 16:08 Chief Complaint Pt c/o right hip pain. Pt had total hip surgery 01/22 at . Pain intensifying in last 2 days. 1mg of Dilaudid given YIELD ENGINEER by EMS. Physical Exam Vitals & Measurements T: 36.8 ?C (Oral) HR: 81(Monitored) RR: 18 BP: 183/100 SpO2: 94% HT: 160.02 cm HT: 160.0 cm WT: 77.2 kg WT: 77.2 kg BMI: 30.15 Assessment/Plan Ordered: fentanyl, 25 microgram = 0.5 mL, Injection, IV Push, Once, Stop date 01/31/21 16:46:00 EDT, STAT, Start date 01/31/21 16:46:00 EDT, 01/31/21 16:46:00 EDT fentanyl, 25 microgram = 0.5 mL, Injection, IV Push, Once, Stop date 01/31/21 17:19:00 EDT, STAT, Start date 01/31/21 17:19:00 EDT, 01/31/21 17:19:00 EDT ondansetron, 4 mg = 2 mL, Injection, IV Push, Once, Stop date 01/31/21 17:24:00 EDT, STAT, Start date 01/31/21 17:24:00 EDT, 01/31/21 17:24:00 EDT propofol, 80 mg = 8 mL, Emulsion, IV, Once, Stop date 01/31/21 17:25:00 EDT, STAT, Start date 01/31/21 17:25:00 EDT, AT BEDISDE FOR SEDATION, 01/31/21 17:25:00 EDT Conscious Sedation Protocol XR Pelvis 1 or 2 Views Medications Administered Given fentaNYL 50 mcg/mL Inj 2 mL, 25 mcg, IV Push fentaNYL 50 mcg/mL Inj 2 mL, 25 mcg, IV Push Disposition Plan Discharge Prescription List Prescriptions No active prescription medications Follow-up No qualifying data available Problem List/Past Medical History Ongoing No qualifying data Historical OA - Osteoarthritis Procedure/Surgical History History of total hip arthroplasty. (01/22/2021). Medications Inpatient propofol 10 mg/mL IV Emul 20 mL, 80 mg= 8 mL, IV, Once Zofran 4 mg/2 mL Injection, 4 mg= 2 mL, IV Push, Once Home No active home medications Allergies No Known Medication Allergies Social History Alcohol - Denies Alcohol Use, 01/31/2021 Substance Abuse - Denies Substance Abuse, 01/31/2021 Tobacco - Denies Tobacco Use, 01/31/2021 Lab Results No qualifying data available. Diagnostic Results XR Pelvis 1 or 2 Views * Preliminary * 01/31/21 17:00:12 POSITIVE: Hip dislocation. No obvious fracture. Read By: Dawood Garber DO [facility] ED Note-Physician Basic Information Time Seen: Dawood Garber DO. 01/31/2021 16:08 Chief Complaint Pt c/o right hip pain. Pt had total hip surgery 01/22 at . Pain intensifying in last 2 days. 1mg of Dilaudid given YIELD ENGINEER by EMS. History of Present Illness 81-year-old female to the emergency department chief complaint of right hip pain. Patient had a hip replacement surgery on January 22 at [facility]. She reports today she was attempting to sit up and felt a pop in her right hip accompanied by pain. She received 1 mg of Dilaudid in route. She was otherwise at baseline health. Review of Systems A 10 point review of systems is negative except as noted above. Medical and Surgical History: Reviewed and noted Social history: Lives at home Tobacco: Denies Physical Exam Vitals & Measurements T: 36.8 ?C (Oral) HR: 87(Monitored) RR: 23 BP: 181/92 SpO2: 98% HT: 160.02 cm HT: 160.0 cm WT: 77.2 kg WT: 77.2 kg BMI: 30.15 VITALS: I have reviewed the triage vital signs. GENERAL: Well developed, well appearing adult in no acute distress. NEURO: Alert and oriented. Moves all extremities. Face is symmetric and expressive. EYES: PERRL. No scleral icterus or conjunctival injection. No discharge. HENT: Normocephalic, atraumatic. Hearing is grossly intact. Nares grossly patent and without discharge. Mucous membranes moist. NECK: No JVD. Patient moves neck without restriction. CARDIO: Rhythm regular. Normal rate. No murmur, rub, or gallop. Pulses equal bilaterally in the upper and lower extremity. No lower extremity edema. PULM: Lungs clear to auscultation in all devine. No wheezes, rales, or rhonchi. No conversational dyspnea. No splinting, stridor, or accessory muscle use. GI/: Abdomen is soft and non-tender. Normoactive bowel sounds. RLE: Plus 2 out of 4 DP and PT pulse. Sensation intact over the lower extremity. Tenderness over the right hip. Wound is intact. SKIN: Warm and dry. Normal turgor. No rash or lesions appreciated. PSYCH: Mood, affect, and interaction is appropriate to the setting. Medical Decision Making 81-year-old female to the emergency department chief complaint of right hip pain. Vital stable, the patient is afebrile. Right hip is neurovascularly intact. Suspect hip dislocation. X-ray was ordered and shows a dislocation. Fentanyl was given for pain. Findings were discussed with the patient. Her family members were also present. They were having a hard time deciding if they would like reduction here if they would like transferred to [facility]. I discussed with him that this is a common procedure and can be performed here. They would like we discussed with Ortho first which I believe is reasonable. Several calls were placed in the patient's orthopedic surgeon at the [facility] which were not returned. Case was discussed our on-call orthopedic surgeon Dr. Dutton who says it is okay for me to reduce this hip in the emergency department. He would like her placed in a knee immobilizer and using a walker for home. Recommendation for reduction in the ED was discussed with the patient and her family. Again they had trouble making decision if they would like to consent for the procedure. Eventually they consented to have procedural sedation and a closed hip reduction performed in the emergency department. See procedure note for details. Successful procedure. No immediate complications. Patient recovered well from sedation. Family does not feel comfortable with the patient at home in her current state let alone using an immobilizer and a walker. They would like her admitted for PT OT evaluation and possible placement. Case was cussed with the hospitalist who agrees admit this patient to his service. Procedures Procedural sedation Risks of airway compromise, respiratory depression, hemodynamic compromise were discussed. Written consent was obtained and placed in the chart. A timeout was performed. No airway abnormalities. Mallampati 2. ASA class III. No cardiac or pulmonary abnormalities. Verbal and written consent was obtained for procedural sedation. Respiratory at the bedside. Nursing at the bedside. Airway equipment and resuscitation equipment at the bedside. Patient was placed on waveform capnography. Fluids were run. Zofran given. Patient was given 50 mg of IV propofol to achieve adequate sedation. Procedure was performed. Patient recovered well. She is able to follow commands. She is able to tolerate p.o.'s. There is no significant hemodynamic changes or cardiac rhythm changes with sedation. Procedure was uneventful. Dawood Garber DO Closed Hip Reduction R written consent was obtained and placed in the chart. Risks of fracture, failed procedure, wound dehiscence were discussed. A timeout was performed. Modified Whistler technique was performed and successful in reduction. Postreduction films successful reduction. The lower extremity is neurovascularly intact after reduction. A knee immobilizer was placed. Patient tolera (more content not included)... Normal [facility] Comment on above: Result Comment: Elec tronically Signed By: Dawood Garber DO\.br\Date and Time Signed: 01/31/21 19:45 EDT ED Patient Education Noteon 01-31-2021 ED Patient Education Note Normal [facility] ED Patient Summaryon 021 ED Patient Summary (Inserted Image. Freya ble to display) [address] [address] Patient Discharge Instructions Person Information Name: ROSEANN DALE Age: 81 Years Arrival Date: 01/31/2021 16:04:21 Discharge Diagnosis: Unspecified dislocation of right hip, initial encounter Primary Care Physician: BLUE NAVARRO DO Provider Information Primary Provider: Dawood Garber DO Advanced Development Vice President:None The exam and treatment you received in the Emergency Department were for an urgent problem and are not intended as complete care. It is important that you follow up with a doctor, nurse practitioner, or physician?s pest controller assistant for ongoing care. If your symptoms become worse or you do not improve as expected and you are unable to reach your usual health care provider, you should return to the Emergency Department. We are available 24 hours a day. ROSEANN DALE has been given the following list of patient education materials, prescriptions and follow-up instructions: Follow-up Instructions: In the event that this physician does not participate in your insurance network, please consult with your insurance company to find a nearby participating provider. Patient Education Materials: A MESSAGE TO ALL PATIENTS REGARDING OPIOIDS PRESCRIPTION OPIOIDS: WHAT YOU NEED TO KNOW Prescription opioids can be used to help relieve znjgewhi-zq-xouffu pain and are often prescribed following a surgery or injury, or for certain health conditions. These medications can be an important part of the treatment but also come with serious risks. It is important to work with your healthcare provider to make sure you are getting the safest, most effective care. WHAT ARE THE RISKS AND SIDE EFFECTS OF OPIOID USE? Prescription opioids carry serious risks of addiction and overdose, especially with prolonged use. An opioid overdose, often marked by slowed breathing, can cause sudden . The use of prescription opioids can have a number of side effects as well, even when taken as directed: ? Tolerance?meaning you might need to take more of the medication for the same pain relief ? Physical dependence?meaning you have symptoms of withdrawal when a medication is stopped ? Increased sensitivity to pain ? Constipation ? Nausea, vomiting, and dry mouth ? Sleepiness and dizziness ? Confusion ? Depression ? Low levels of testosterone that can result in lower sex drive, energy, and strength ? Itching and sweating RISKS ARE GREATER WITH: ? History of drug misuse, substance use disorder, or overdose ? Mental health conditions (such as depression or anxiety) ? Sleep apnea ? Older age (65 years and older) ? Avoid alcohol while taking prescription opioids. Also, unless specifically advised by your health care provider, medications to avoid include: ? Benzodiazepines (such as Xanax or Valium) ? Muscle relaxants (such as Soma or Flexeril) ? Hypnotics (such as Ambien or Lunesta) ? Other prescription opioids KNOW YOUR OPTIONS Talk to your health care provider about ways to manage your pain that don?t involve prescription opioids. Some of these options may actually work better and have fewer risks and side effects. Options may include: ? Pain relievers such as acetaminophen, ibuprofen, and naproxen ? Some medication that are also used for depression or seizures ? Physical therapy and exercise ? Cognitive behavioral therapy, a psychological, goal-directed approach, in which patients learn how to modify physical, behavioral, and emotional triggers of pain and stress. IF YOU ARE PRESCRIBED OPIOIDS FOR PAIN: ? Never take opioids in greater amounts or more often than prescribed. ? Follow up with your primary health care provider. o Work together to create a plan on how to manage your pain. o Talk about ways to help manage your pain that don?t involve prescription opioids. o Talk about any and all concerns and side effects. ? Help prevent misuse and abuse o Never sell or share prescription opioids. o Never use another person?s prescription opioids. ? Store prescription opioids in a secure place and out of reach of others (this may include visitors, children, friends, and family). ? Safely dispose of unused prescription opioids: Find your community drug take-back program or your pharmacy mail-back program, or flush them down the toilet, following guidance from the Food and Drug Administration (www.fda.gov/Drugs/Resourc esForYou). ? Visit www.cdc.gov/drugoverdose to learn about the risks of opioids abuse and overdose. ? If you believe you may be struggling with addiction, tell your health manager primary care and ask for guidance or call SAMHSA?S National Helpline at 5-162-288-HELP. v Source: US Department of Health and Human Services/Center for Disease Control & Prevention [facility] Medications Given: (more content not included)... [facility] Monitor Recordon 01-31-2021 Monitor Record [id number]:127 [facility] Monitor Record [id number]:127 [facility] Pre-Arrival Noteon 08-29-202 1 Pre-Arrival Note Pre-Arrival Summary Name: , Current Date: 01/31/2021 16:07:49 EDT Gender: Female Date of : Age: 81 Pre-Arrival Type: EMS ETA: 01/31/2021 16:26:00 EDT Primary Care Physician: Presenting Problem: Pre-Arrival User: Annamarie Mejia RN Referring Source: Location: [place] Completion Date/Time: 01/31/2021 15:55:00 [facility] Emergency Department Pre-Hospital Report Form _ Vital Signs: Pre-Hospital Report:c/o right hip pain. prior hip surgery January 22. 24G in R Hand. Treatment in Route: Response to Treatment: Misc. Issues: Normal [facility] Basic Metabolic Panlon 01-23 Anion gap [Moles/Vol] 7 mmol/L Low 9-18 [facility] Comment on above: Performed By: #### C KLEVER, BMP ####[address] Calcium [Mass/Vol] 7.9 mg/dL Low 8.5-10.2 [facility] Comment on above: Performed By: #### C KLEVER, BMP ####[address] Chloride [Moles/Vol] 102 mmol/L Normal 97-105 [facility] Comment on above: Performed By: #### C BC, BMP ####[place] [id number] [address] CO2 [Moles/Vol] 29 mmol/L Normal 22-30 [facility] Comment on above: Performed By: #### C BC, BMP ####[place] [id number] [address] Creatinine [Mass/Vol] 0.73 mg/dL Normal 0.58-0.96 [facility] Comment on above: Performed By: #### C KLEVER, BMP ####[place] [id number] eGFR- Amer. >60 Normal >60 [facility] Comment on above: Performed By: #### C BC, BMP ####[place] [id number] eGFR-All Other Races >60 Normal >60 [facility] Comment on above: Result Comment: eGFR (Estimated GFR) Units of measure: mL/min/1.73 meters squared eGFR is derived from the reexpressed MDRD Study equation using the following parameters: serum creatinine, age, gender and race. The creatinine assay has been calibrated to be traceable to IDMS. An eGFR <60 mL/min/1.73m2 for >3 months is consistent with chronic kidney disease. Refer to KDOQI guidelines for clinical interpretation. In patients with unstable renal function, e.g. those with acute kidney injury, the eGFR may not accurately reflect actual GFR. Performed By: #### C KLEVER, BMP ####[place] [id number] Glucose [Mass/Vol] 134 mg/dL High 74-99 [facility] Comment on above: Performed By: #### C BC, BMP ####[place] [id number] Potassium [Moles/Vol] 4.1 mmol/L Normal 3.7-5.1 [facility] Comment on above: Performed By: #### C BC, BMP ####[place] [id number] Sodium [Moles/Vol] 138 mmol/L Normal 136-144 [facility] Comment on above: Performed By: #### C BC, BMP ####[place] [id number] Urea nitrogen [Mass/Vol] 14 mg/dL Normal 7-21 [facility] Comment on above: Performed By: #### C BC, BMP ####[place] [id number] CBCon 01-23-2021 Absolute nRBC 0.02 k/uL High <0.01 [facility] Comment on above: Performed By: #### C BC, BMP ####[place] [id number] Erythrocyte distribution width (RBC) [Ratio] 12.7 % Normal 11.5-15.0 [facility] Comment on above: Performed By: #### C BC, BMP ####[place] [id number] Hematocrit (Bld) [Volume fraction] 35.6 % Low 36.0-46.0 [facility] Comment on above: Performed By: #### C BC, BMP ####[place] [id number] Hemoglobin (Bld) [Mass/Vol] 10.8 g/dL Low 11.5-15.5 [facility] Comment on above: Performed By: #### C BC, BMP ####[place] [id number] MCH 28.9 pG Normal 26.0-34.0 [facility] Comment on above: Performed By: #### C BC, BMP ####[place] [id number] MCHC (RBC) [Mass/Vol] 30.3 g/dL Low 30.5-36.0 [facility] Comment on above: Performed By: #### C BC, BMP ####[place] [id number] MCV (RBC) [Entitic vol] 95.2 fL Normal 80.0-100.0 [facility] Comment on above: Performed By: #### C BC, BMP ####[place] [id number] Platelet mean volume (Bld) [Entitic vol] 10.0 fL Normal 9.0-12.7 [facility] Comment on above: Performed By: #### C BC, BMP ####[facility] Platelets (Bld) [#/Vol] 139 10*3/uL Low 150-400 [facility] Comment on above: Performed By: #### C BC, BMP ####[place] [id number] [address] RBC (Bld) [#/Vol] 3.74 10*6/uL Low 3.90-5.20 [facility] Comment on above: Performed By: #### C BC, BMP ####[facility] [place] [address] WBC (Bld) [#/Vol] 5.71 10*3/uL Normal 3.70-11.00 [facility] Comment on above: Performed By: #### C KLEVER, BMP ####[address] CNDSon 01-23-2021 CNDS HNO ID: [id number] Author: Martita Barakat MD Service: Orthopaedic Surgery Author Type: Resident Type: Discharge Summary Filed: 01/23/2021 9:05 AM Note Text: -- Attestation signed by Alo Lomeli MD at 01/28/2021 4:39 PM Instructions given Alo Lomeli MD -- ORTHOPEDIC SURGERY DISCHARGE SUMMARY ADMISSION DATE: 01/22/2021 DISCHARGE DATE: 01/23/21 Attending Physician: Alo Lomeli MD Reason for Hospitalization: R LELAND Admitting Diagnosis: Hip Advanced Degenerative Joint Disease Discharge Diagnosis: Hip Advanced Degenerative Joint Disease Additional Diagnoses: ACTIVE PROBLEM LIST Right Hip Pain Myasthenia Gravis (Hcc) Primary Hypertension Aortic Regurgitation Ddd (Degenerative Disc Disease), Lumbar Swelling Status Post Right Hip Replacement Surgeries During Hospitalization: Procedure(s) (LRB): ARTHROPLASTY REPLACE JOINT TOTAL HIP (Right) Consultations: Physical Therapy Case Management Occupational Therapy Hospital Course: The patient is a 81 year old female who has been followed by Dr. Alo Lomeli MD, MD in clinic for the above It was determined she would benefit from surgery. The procedure, its risks, benefits, and potential complications were discussed in detail with the patient prior to surgery. Understanding of all topics was conveyed by the patient, and consent was given for surgery. The patient was electively admitted to the [facility] on 01/22/2021. Surgery was scheduled and on 01/22/2021 she underwent a Procedure(s) (LRB): ARTHROPLASTY REPLACE JOINT TOTAL HIP (Right) with Spinal Anesthesia. The procedure was tolerated well and she was sent to the post operative recovery room in stable condition, where she also did well. Once on the floor her postoperative course was unremarkable and she did well. Her diet was advanced which she tolerated. Her pain was well controlled on oral medication alone prior to discharge. She worked with Physical and Occupational Therapy who recommended she be discharged home. Her dressing remained clean dry and intact throughout her stay. She remained afebrile with stable vital signs throughout her stay. She was stable for discharge to home on POD#1. Complete and comprehensive discharge instructions were provided to the patient as well as necessary prescriptions. The patient had no further questions and was advised to call with any questions, concerns, or problems. Patient was hemodynamically stable postoperatively. Relevant labs included: Hemoglobin (g/dL) Date Value 01/23/2021 10.8 (L) 01/20/2021 13.5 Hematocrit (%) Date Value 01/23/2021 35.6 (L) 01/20/2021 43.1 Discharge Antibiotics: None Prior to surgery the patient was treated with antibiotics and continued with antibiotics 24 hours postoperatively Transfers: PACU and then to the hospital surgical floor when PACU criteria was met. DVT Prophylaxis: Aspirin to reduce risk of bleeding Pain Control: Oral narcotics Complications: Continued throughout the hospital course without complications. Patient Condition @ Discharge: Stable Discharge Disposition: Home/Self Care Discharge Activity/Weight Bearing Status: Weight bearing as tolerated Roseann Dale will require more than a 7 day supply of 30 morphine equivalent doses per day (MEDD) of narcotic prescription due to their major orthopaedic surgery SIGNATURE: Martita Barakat MD PATIENT NAME: Roseann Dale DATE: January 23, 2021 TIME: 9:04 AM PAGER: [phone] [facility] NURSING PROGon 01-23-2021 NURSING PROG HNO ID: [id number] Author: Rachael Hernandez RN Service: Nursing Author Type: Registered Nurse Type: Nursing Progress Note Filed: 01/23/2021 12:38 PM Note Text: Nursing Progress Note Patient Name: Roseann Dale Patient Location: [place] [address] Daily Note:Pt watched discharge video. This note was completed by: Rachael Hernandez [facility] THERAPY NTon 01-23-2021 THERAPY NT HNO ID: [id number] Author: Robson Land PTA Service: Physical Therapy Author Type: [employer] Type: Therapy (PT/OT/Speech/Resp) Filed: 01/23/2021 5:03 PM Note Text: -- Attestation signed by Shirin Gamez PT at 01/25/2021 11:19 AM I reviewed and agree with the documentation corresponding to this therapy visit. SIGNATURE: Shirin Gamez PT DATE: January 25, 2021 TIME: 11:19 AM -- Physical Therapy Treatment SERVICE DATE: 01/23/2021 SERVICE TIME: 1250 to 1330 ROOM: [id number] Recommended Discharge Disposition: Home PT Anticipated Discharge Needs: Physical Assist at Home Physical Assist at Home for: Cleaning;Laundry;Shopping; Transportation;Meals Recommended Discharge Equipment: No equipment needs anticipated PT 6 Clicks Score: 22 D/C home with home PT Precautions/Activity Restrictions: Fall Risk;Lines/Tubes/Drains Extremity With Weight Bearing Restricted: Right Lower Extremity Right Lower Extremity Weight Bearing Status: WBAT Total Hip Replacement Precautions: Posterior Current Hospital Course: POD0 s/p R LELAND performed on 01/22/[address] Lomeli Reason for Hospital Admission: s/p elective R LLEAND Relevant Past Medical History: myasthenia gravis, lumbar DDD, OA, aortic regurgitation Physical Therapy Problem List: Edema;Pain;Safety Deficits;Impaired Self Care;Decreased Activity Tolerance;Decreased Range Of Motion;Decreased Strength;Functional Mobility Impairment;Balance Impaired Treatment Interventions: Education;Energy Conservation Training;Joint Mobility;Strengthening;Fun ctional Mobility Training;Balance Training;Modalities;Edema Management;Pain Management Modalities: Ice Home Environment Patient Lives With: Self/Alone (Familly nearby can assist) Assistance Available: 24 Hour Entry To Home: Stairs Number Of Stairs Into Home: 4 (4 at garage w double rail, 2 at front door) Number Of Stairs To Bed/Bath: 0 Tub/Shower Type: walk in shower Laundry: 1st floor - dtr can complete Equipment Owned: Cane;Grab Bars-Shower;Grab Bars-Toilet;Wheeled Walker;Elevated Toilet Seat;Hydroelectric Powerplant Supervisor Prior Functional Level: Within Functional Limits Prior Functional Level Comments: IND/MOD I for ADL/IADLs, ambulated with cane in community, furniture/wall walk at home CURRENT FUNCTIONAL STATUS: Most recent performance Current Functional Mobility Assist Level Additional Information Rolling Supine to Sit Supervision Sit to Supine Scooting Supervision Sit to Stand Stand By Assistance Stand to Sit Stand By Assistance Bed to Chair Supervision Bed To Chair Transfer Type: Stepping Bed To Chair Transfer Equipment: Wheeled Walker Toilet/Commode Supervision Gait Supervision Gait Device: Wheeled Walker Gait Distance (feet): 150 Stairs Stand By Assistance Stairs Device: (B rails) Number of Stairs: 4 Curb Step Car Transfer Blank devine indicate activity not attempted Gait Deviations Right Lower Extremity: Foot clearance decreased;Heel strike during initial stance decreased;Push off during terminal stance decreased;Lacks hip extension beyond mid-stance;Stance time decreased;Weight bearing decreased General Deviations/Observations: Antalgic gait;Eleanor decreased;Step length decreased Balance: Dynamic Standing Dynamic Standing Balance: Fair Patient accepts minimal challenge, able to maintain balance while turning head/trunk -HLM: 7: Walk 25 feet or more Learning/Educational Needs: Discharge Plan;Functional Activities/Mobility;Pain Management;Plan of Care;Precautions;Rehabilit ation Techniques and Procedures;Safety Goals for Plan of Care: Patient /Caregiver Goals: Go Home Goals: Patient will demonstrate understanding of importance of mobility during hospital stay and resolve all functional needs identified.;Patient will demonstrate progress with functional mobility to allow safe discharge to home with available support and/or physical assistance. Progress Toward Goals: Progressing as expected Rehab Potential: Good Patient will be discontinued from Physical Therapy when no further skilled needs are identified in this setting. PLAN: PT Frequency: Once daily Plan of Care developed with: Patient TREATMENT INTERVENTIONS: Therapy Diagnosis: Reduced mobility-other Interventions Provided: Therapeutic Exercise (88031);Therapeutic Activity (48555);Gait Training (91342) Therapeutic Exercise (98687) Treatment Minutes: 15 $ Therapeutic Exercise (78465) Billed Units: 1 unit Therapeutic Activity (67225) Treatment Minutes: 15 $ Therapeutic Activity (38751) Billed Units: 1 unit Gait Training (55442) Treatment Minutes: 10 $ Gait Training (34623) Billed Units: 1 unit Total Timed Code Treatment Minutes: 40 Total Treatment Time (minutes): 40 Please see discipline specific clinical documentatio (more content not included)... [facility] THERAPY NT HNO ID: [id number] Author: Thi Thomas OT/L Service: Occupational Therapy Author Type: Occupational Therapist Type: Therapy (PT/OT/Speech/Resp) Filed: 01/23/2021 11:35 AM Note Text: Occupational Therapy Evaluation SERVICE DATE: 01/23/2021 SERVICE TIME: 1032 to 1115 ROOM: [place] [address] Recommended Discharge Disposition: Home OT Anticipated Discharge Needs: Physical Assist at Home Physical Assist at Home for: Cleaning;Laundry;Shopping; Transportation;Meals Pt cleared for d/c to home with PRN family assist once medically cleared. Pt has 26/12 support available. OT 6 Clicks Score: 22 Precautions/Activity Restrictions: Fall Risk;Lines/Tubes/Drains;To sadia Hip Replacement;Weight Bearing Restrictions Extremity With Weight Bearing Restricted: Right Lower Extremity Right Lower Extremity Weight Bearing Status: WBAT Total Hip Replacement Precautions: Posterior Current Hospital Course: POD0 s/p R LELAND performed on 01/22/[address] Lomeli Reason for Hospital Admission: s/p elective R LELAND Relevant Past Medical History: myasthenia gravis, lumbar DDD, OA, aortic regurgitation Response to Therapy Interventions: Good participation in activities, Pain Occupational Therapy Problem List: Pain;Impaired Self Care;Decreased Activity Tolerance;Functional Mobility Impairment Treatment Interventions: Education;Self Care / Home Management;Functional Mobility Training Home Environment Patient Lives With: Self/Alone (Familly nearby can assist) Assistance Available: 24 Hour Entry To Home: Stairs Number Of Stairs Into Home: 4 (4 at garage w double rail, 2 at front door) Number Of Stairs To Bed/Bath: 0 Tub/Shower Type: walk in shower Laundry: 1st floor - dtr can complete Equipment Owned: Cane;Grab Bars-Shower;Grab Bars-Toilet;Wheeled Walker;Elevated Toilet Seat;Hydroelectric Powerplant Supervisor Prior Functional Level: Within Functional Limits Prior Functional Level Comments: IND/MOD I for ADL/IADLs, ambulated with cane in community, furniture/wall walk at home Patient Report: I work out. I was riding eliptical, I lift weights. CURRENT FUNCTIONAL STATUS: Most recent performance Current Activities of Daily Living Assist Level Additional Information Feeding Independent Grooming Set Up Bathing Upper Body Set Up Bathing Lower Body Minimal Assistance Dressing Upper Body Set Up Dressing Lower Body Minimal Assistance Toileting Stand By Assistance Instrumental Activities of Daily Living Assist Level Additional Information Meal/Beverage Prep Cleaning Laundry Medication Management with Strategies Functional Mobility Assist Level Additional Information Rolling Supine to Sit Supervision Sit to Supine Supervision Scooting Supervision Sit to Stand Stand By Assistance Stand to Sit Stand By Assistance Bed to Chair Toilet/Commode Shower Functional Mobility Blank devine indicate activity not attempted Learning/Educational Needs: Discharge Plan;Functional Activities/Mobility;Plan of Care;Precautions;Rehabilit ation Techniques and Procedures Goals for Plan of Care: Patient /Caregiver Goals: Walk;Go Home;Care For Self Goals: Patient will demonstrate progress with self-care, cognitive and/or coping needs identified to allow safe discharge to home with available support and/or physical assistance. Progress Toward Goals: Progressing as expected Rehab Potential: Excellent Patient will be discontinued from Occupational Therapy when no further skilled needs are identified in this setting. PLAN: OT Frequency: Discontinue therapy services Reasons Therapy Services Discontinued: Goals met Plan of Care developed with: Patient TREATMENT INTERVENTIONS: Therapy Diagnosis: Reduced mobility-other;Decreased activities of daily living (ADL);Unsteadiness on feet Interventions Provided: Evaluation;Self Fdc Management (57815) $ Evaluation-Low (81191) Billed Units: 1 unit Self Fdc Management (36278) Treatment Minutes: 28 $ Self Fdc Management (36384) Billed Units: 2 units Training AND education provided in: Activity adaption / compensatory strategies, Adaptive equipment / DME, Assistive device use, Bed mobility, Benefits of in-hospital mobility, Coping skills, Disease specific education, Discharge planning, Functional mobility involving ADLs, IADLs / Home management, Home set-up/modifications, Lower extremity bathing, Lower extremity dressing, Positioning, Precautions/restrictions, Role of Occupational Therapy, Transfer - Car, Transfer - Sit to stand, Transfer - Tub Shower The following therapeutic skills were used: Cuing tactile, Cuing verbal, Cuing visual, Physical assist, Therapeutic use of self, Management of critical lines, tubes and/or drains Total Timed Code Treatment Minutes: 28 Total Treatment Time (minutes): 43 Please see discipline specific clinical documentation flowsheet for complete details for this therapy evaluation/treatment. SIGNATURE: Thi Thomas, (more content not included)... [facility] ALLIED HEALTH 01-22-2021 ALLIED HEALTH HNO ID: [id number] Author: RT Jose(R) Service: Radiology Author Type: Carbon Paper Machine Operator Type: Allied Health Filed: 01/22/2021 9:48 AM Note Text: Radiology Service Progress Note PATIENT NAME: Roseann Dale DATE OF SERVICE: January 22, 2021 TIME: 9:47 AM PATIENT IDENTITY VERIFICATION COMPLETED USING TWO (2) IDENTIFIERS: Name and Date of confirmed by patient verbally and Name and Date of confirmed by identification band. FALL SCREENING: Has the patient had 2 falls in the last year or 1 fall with injury or currently using an Ambulatory Assistive Device (Walker, Cane, Wheelchair, Crutches, etc.)? Inpatient: Screened on floor PATIENT GENDER DATA: Female. status: : No status: N/A PATIENT RELEVANT IMPLANT DATA REVIEWED: Not Applicable RADIOLOGY DEPARTMENT: General X-ray: Exam(s) Completed: Pelvis X-Ray: Pelvis General AP PERIPHERAL IV DATA: Not applicable SIGNED BY: RT Jose(R) January 22, 2021 9:47 AM [facility] ANES POSTPROC EVALon 021 ANES POSTPROC EVAL HNO ID: [id number] Author: Dm Leonardo II, DO Service: Anesthesiology Author Type: Anesthesiologist Type: Anesthesia Postprocedure Evaluation Filed: 01/22/2021 11:14 AM Note Text: POST ANESTHESIA EVALUATION NOTE : 1940 Procedure Summary Date: 01/22/21 Room / Location: OR01 / OR Anesthesia Start: 731 Anesthesia Stop: 916 Procedure: ARTHROPLASTY REPLACE JOINT TOTAL HIP (Right Hip) Diagnosis: Primary osteoarthritis of right hip (Primary osteoarthritis of right hip [M16.11]) Surgeons: Alo Lomeli MD Responsible Provider: Dm Leonardo II, DO Anesthesia Type: general ASA Status: 3 Anesthesia Type: general Last vitals Vitals Value Taken Time BP 136/50 01/22/21 1012 Temp 36.2 ?C (97.2 ?F) 01/22/21 1000 Pulse 61 01/22/21 1012 Resp 17 01/22/21 1012 SpO2 100 % 01/22/21 1012 Post Anesthesia Patient Status Patient Evaluation: PACU. Intraoperative Events: no significant anesthesia events Recommendation: continue current plan of care. No complications documented. SIGNATURE: Dm Leonardo II, DO PATIENT NAME: Roseann Dale DATE: January 22, 2021 TIME: 11:14 AM CSN: [id number] [facility] ANES PRE-OPon 01-22-2021 ANES PRE-OP HNO ID: [id number] Author: Dm Leonardo II, DO Service: Anesthesiology Author Type: Anesthesiologist Type: Anesthesia Preprocedure Evaluation Filed: 01/22/2021 6:56 AM Note Text: ANESTHESIOLOGY DAY OF SURGERY NOTE : 1940 Procedure(s) (LRB): ARTHROPLASTY REPLACE JOINT TOTAL HIP (Right) Surgeon(s): Alo Lomeli MD Estimated body mass index is 28.52 kg/m? as calculated from the following: Height as of 01/20/21: 160 cm (5' 3 ). Weight as of 01/20/21: 73 kg (161 lb). Most recent hematocrit and potassium results: Hematocrit 43.1 01/20/2021 Potassium 4.0 01/20/2021 Relevant Problems CARDIO (+) Aortic regurgitation (+) Primary hypertension I - PHYSICAL EVALUATION AIRWAY Patient intubated: No. Tracheostomy tube not present Mallampati: II. TM distance: >3 FB. Neck ROM: limited extension. Mouth opening: adequate. Short neck: no. Thick neck: no DENTAL Additional exam findings: yes. CARDIOVASCULAR Rhythm: regular Rate: normal PULMONARY Breath sounds clear to auscultation. II - ANESTHESIA PLAN ASA Score: 3 Anesthetic Plan: general Airway type: ETT The patient is not a current smoker. NPO Status: adequate Monitoring plan: standard ASA. Postoperative analgesic plan: parenteral or oral opioids. Anesthetic Risks, Benefits, Alternatives, Personnel Discussed. Consent obtained from: patient.Patient / Surrogate agrees to blood products: Yes Vitals Value Taken Time BP 159/84 01/22/21 0633 Pulse 66 01/22/21632 Resp 16 01/22/21632 Temp 37 ?C (98.6 ?F) 01/22/21632 SpO2 93 % 01/22/21632 Facility-Administered Medications as of 01/22/2021 Medication Dose Route Frequency - lidocaine 10 mg/mL (1 %) 1-2 mg injection (XYLOCAINE) 0.1-0.2 mL INTRADERMAL PRN - lactated ringers iv infusion 5-30 mL/hr INTRAVENOUS CONTINUOUS - [COMPLETED] celecoxib 200 mg cap(s) (CeleBREX) 200 mg ORAL ONCE - ceFAZolin iv piggyback 2 g in D5W (iso-osmotic) 100 mL (ANCEF) 2 g INTRAVENOUS ONCE - tranexamic acid 1,000 mg in NaCl 0.9% 100 mL (CYKLOKAPRON) 1,000 mg INTRAVENOUS ONCE - tranexamic acid 1,000 mg in NaCl 0.9% 100 mL (CYKLOKAPRON) 1,000 mg INTRAVENOUS ONCE - [COMPLETED] acetaminophen 1,000 mg tab(s) (TYLENOL) 1,000 mg ORAL ONCE - vancomycin iv piggyback 1 g in D5W 200 mL (VANCOCIN) 1 g INTRAVENOUS ONCE Outpatient Medications as of 01/22/2021 Medication Sig - gabapentin (NEURONTIN) 300 mg capsule Take 1 capsule by mouth three times daily for 30 days. - alendronate (FOSAMAX) 70 mg tablet TAKE 1 TAB WEEKLY ON EMPTY STOMACH WITH GLASS OF WATER*AVOID EATING/LAYING FLAT FOR 30 MINUTES* - furosemide (LASIX) 40 mg tablet Take 40 mg by mouth once daily. - lisinopril (ZESTRIL, PRINIVIL) 10 mg tablet Take 20 mg by mouth once daily. - diazePAM (VALIUM) 5 mg tablet Take 5 mg by mouth every 6 hours as needed. - aspirin, enteric coated (ECOTRIN LOW STRENGTH) 81 mg EC tablet Take 1 tablet by mouth twice daily. - docusate sodium (COLACE) 100 mg capsule Take 1 capsule by mouth twice daily. - oxyCODONE IR (ROXICODONE) 5 mg immediate release tablet Take 1-2 tablets by mouth every 4 hours as needed for pain for up to 7 days. Requires greater than 30 MEDD of narcotics due to major orthopaedic surgery to control pain and allow active, safe participation in therapy. The lowest dose consistent with patient's medical condition. - naloxone 4 mg/actuation nasal spray (NARCAN) Use 1 spray in one nostril as needed for overdose. May repeat every 2 to 3 min in alternating nostrils until medical assistance is available - acetaminophen (TYLENOL EXTRA STRENGTH) 500 mg tablet Take 2 tablets by mouth every 6 hours as needed for pain for up to 15 days. - meloxicam (MOBIC) 15 mg tablet Take 1 tablet by mouth once daily. - pantoprazole DR (PROTONIX) 40 mg tablet Take 1 tablet by mouth once daily. - ondansetron (ZOFRAN) 4 mg tablet Take 1 tablet by mouth every 8 hours as needed for nausea/vomiting for up to 7 days. - citalopram (CELEXA) 20 mg tablet TAKE 1 TABLET BY MOUTH EVERYDAY AT BEDTIME I have interviewed and examined the patient. I have reviewed the medical record and/or the pre-anesthesia evaluation, pertinent labs, and test results. This contains updated information obtained within 48 hours of Surgery/Procedure. SIGNATURE: Dm Leonardo II, DO PATIENT NAME: Roseann Dale DATE: January 22, 2021 TIME: 6:55 AM CSN: [id number] [facility] BRIEF OP NOTon 01-22-2021 BRIEF OP NOT HNO ID: [id number] Author: Alo Lomeli MD Service: Orthopaedic Surgery Author Type: Physician Type: Brief Op Note Filed: 01/22/2021 9:17 AM Note Text: BRIEF OPERATIVE / PROCEDURE NOTE LOG ID: [id number] SURGERY/PROCEDURE DATE: 01/22/2021 INCISION/PROCEDURE START TIME: 8:08 AM INCISION CLOSE/PROCEDURE END TIME: 9:04 AM SURGEON(S)/PROCEDURALIST(S ) AND ELECTRICIAN OFFICE(S): Surgeon(s) and Role: * Alo Lomeli MD - Primary Physician Measurement Specialist: Rodrigue Zabala PA-C Plate Painter Apprentice: Trisha Stafford SURGERY/PROCEDURE(S): Right LELAND ANESTHESIA: General FINDINGS: OA ESTIMATED BLOOD LOSS: 150 mls SPECIMENS: None COMPLICATIONS: None PRE-OP/PRE-PROCEDURE DIAGNOSIS: OA right hip POST-OP/POST-PROCEDURE DIAGNOSIS: Same as Preop SIGNATURE: Alo Lomeli MD PATIENT NAME: Roseann Dale DATE: January 22, 2021 TIME: 9:17 AM [facility] CASE MGT INIT ASSESon 2020 CASE MGT INIT [facility] HNO ID: [id number] Author: Sallie Olguin RN Service: ? Author Type: Registered Nurse Type: Care Mgt Initial Assessment Filed: 01/22/2021 11:55 AM Note Text: CARE MANAGEMENT PROGRESS NOTE SERVICE DATE: 01/22/2021 SERVICE TIME: 11:53 am LOS: 0 days - Procedure(s) (LRB): ARTHROPLASTY REPLACE JOINT TOTAL HIP (Right) [place] of Choice Given: Yes Level of Care Discussed: Home Care Financial Disclosure Provided: Yes Financial Disclosure Comments: [facility] affiliation Provider list within the patient's requested geographic area shared with the patient/family: No (wants [facility]) Quality and resource use metrics shared with the patient that are relevant to the patient's goals of care and treatment preferences:: Yes Metrics: Functional Status;Discharge to Community Caregiver is ready, willing and able to meet the patient's needs as recommended by the inter-professional team:: Yes (will have PT / OT evals to determine DC therapy needs) Does the patient have an acute stroke diagnosis, or has the patient had a stroke during this admission?: No Pre Hospital Mental Status Prior to this Illness what was the patient's Baseline Mental Status?: Alert AND Oriented Prior to this illness, has anyone described the patient having any of the following behaviors?: Not Applicable Relationship of the informant to the patient:: Self Needs Prior to Discharge: Home Care Order;OT/PT Evaluation Current Advance Directive: None CM met with patient and her daughter at the bedside, her daugter states she will be assisting her at home. She has a wheeled walker and a high toilet seat Referral made to [facility] for the home PT / OT she will need. CM Department will continue to follow. SIGNATURE: Sallie Olguin RN PATIENT NAME: Roseann Dale DATE: January 22, 2021 TIME: 11:53 AM PAGER/CONTACT #: [phone] [facility] CONSULTon 01-22-2021 CONSULT HNO ID: [id number] Author: Fernando Vazquez MD Service: General Internal Medicine Author Type: Physician Type: Consults Filed: 01/22/2021 2:49 PM Note Text: CONSULT: MEDICAL SERVICE SERVICE DATE: 01/22/2021 SERVICE TIME: 2:46 PM REASON FOR CONSULT: post op medical care REQUESTING PHYSICIAN: Tanmay PRIMARY CARE PHYSICIAN: DO Paolo Banuelos Ms. Dale is a 81 year old female who presents for right hip arthroplasty. I was asked to see the pt for post op medical care. Pt seen and chart reviewed. At this time, the patient has no new medical concerns. She has a past history notable for hypertension. She also has a history of remote myasthenia gravis. This has been well controlled since her thymectomy. Currently the patient denies shortness of breath. There is no history of chest pain or palpitations. FUNCTIONAL STATUS: Independent PAST MEDICAL HISTORY Diagnosis Date - Myasthenia gravis (HCC) 01/20/2021 - Primary hypertension 01/20/2021 PAST SURGICAL HISTORY Procedure Laterality Date - APPENDECTOMY - HYSTERECTOMY HX - PAST SURGICAL HISTORY OF Thymectomy - PAST SURGICAL HISTORY OF emergent surgery for bowel obstruction FAMILY HISTORY Problem Relation Age of Onset - Cancer Mother lung - Hypertension Father - Stroke Father Social History Tobacco Use - Smoking status: Former Smoker Packs/day: 0.50 Years: 5.00 Pack years: 2.50 Quit date: 09/30/1979 Years since quittin.3 - Smokeless tobacco: Never Used Substance Use Topics - Alcohol use: Not Currently - Drug use: Never CALCIUM ORAL, Take by mouth once daily., Disp: , Rfl: , 01/21/2021 at 0800 MULTI-VITAMIN ORAL, Take by mouth once daily., Disp: , Rfl: , Past Week at Unknown time gabapentin (NEURONTIN) 300 mg capsule, Take 1 capsule by mouth three times daily for 30 days. (Patient taking differently: Take 300 mg by mouth twice daily. ), Disp: 90 capsule, Rfl: 0, 01/22/2021 at 0500 alendronate (FOSAMAX) 70 mg tablet, Pt reports taking every , Disp: , Rfl: , 01/21/2021 at 0800 citalopram (CELEXA) 20 mg tablet, TAKE 1 TABLET BY MOUTH EVERYDAY AT BEDTIME, Disp: , Rfl: , 01/21/2021 at 2030 furosemide (LASIX) 40 mg tablet, Take 40 mg by mouth once daily., Disp: , Rfl: , 01/21/2021 at 0800 lisinopril (ZESTRIL, PRINIVIL) 10 mg tablet, Take 20 mg by mouth once daily. , Disp: , Rfl: , 01/21/2021 at 0800 diazePAM (VALIUM) 5 mg tablet, Take 5 mg by mouth every 6 hours as needed., Disp: , Rfl: , 01/21/2021 at 2030 mupirocin (BACTROBAN) 2 % ointment, Apply 0.5 inch with cotton swab ( Q tip) in each nostril in the morning and evening for 5 consecutive days., Disp: 22 g, Rfl: 0 Current Facility-Administered Medications Medication Dose Route Frequency - [START ON 01/23/2021] lisinopril 20 mg tab(s) (ZESTRIL, PRINIVIL) 20 mg ORAL DAILY - [START ON 01/23/2021] furosemide 40 mg tab(s) (LASIX) 40 mg ORAL DAILY - citalopram hydrobromide 20 mg tablet (CeleXA) 20 mg ORAL AT BEDTIME - ceFAZolin iv piggyback 2 g in D5W (iso-osmotic) 100 mL (ANCEF) 2 g INTRAVENOUS q 8 HR - sodium chloride 0.9 % (flush) 3-5 mL (BD POSIFLUSH) 3-5 mL INTRAVENOUS q 12 H - NaCl 0.9% iv flush bag 20 mL INTRAVENOUS PRN - NaCl 0.9% iv infusion 75 mL/hr INTRAVENOUS CONTINUOUS - sodium chloride 0.9 % (flush) 2-10 mL (BD POSIFLUSH) 2-10 mL INTRAVENOUS q 12 H - morphine 2 mg injection 2 mg INTRAVENOUS q 2 H PRN - oxyCODONE IR 5-10 mg tab(s) (ROXICODONE) 5-10 mg ORAL q 4 H PRN - acetaminophen 1,000 mg tab(s) (TYLENOL) 1,000 mg ORAL q 8 H - keTORolac 15 mg injection (TORADOL) 15 mg INTRAVENOUS q 6 H - ondansetron 4 mg tab(s) (ZOFRAN) 4 mg ORAL q 6 H PRN Or - ondansetron (PF) 4 mg injection (ZOFRAN) 4 mg INTRAVENOUS q 6 H PRN - magnesium hydroxide 400 mg/5 mL 30 mL (MOM) 30 mL ORAL DAILY PRN - [START ON 01/23/2021] bisacodyl EC 10 mg tab(s) (DULCOLAX) 10 mg ORAL DAILY - aluminum-magnesium hydroxide-simethicone 200-200-20 mg/5 mL 30 mL (MAALOX,MYLANTA,MAG-AL PLUS) 30 mL ORAL q 2 H PRN - ferrous sulfate 325 mg tab(s) 325 mg ORAL DAILY wLUNCH - ascorbic acid (vitamin C) 500 mg tab(s) (VITAMIN C) 500 mg ORAL BID w MEALS - senna 17.2 mg tab(s) (SENOKOT) 17.2 mg ORAL AT BEDTIME - aspirin, enteric coated 81 mg tab(s) 81 mg ORAL BID Allergies As of Date: 01/12/2021 (No Known Allergies) Fully Assessed 01/12/2021 COMPLETE REVIEW OF SYSTEMS: GENERAL: no fever or chills. Denies recent illness. RESPIRATORY: denies SOB. CARDIOVASCULAR: denies chest pain. No palpitations. GI: No nausea, vomiting : Patient has not voided since surgery MUSCULOSKELETAL: positive for arthritis. Objective PHYSICAL EXAM: Physical Exam Performed: GENERAL: Alert, no distress, cooperative HEAD/SINUSES: No significant findings OROPHARYNX: MMM. LUNGS: Lungs clear to auscultation, Good diaphragmatic excursion CARDIAC: Rhythm: regular rate and rhythm ABDOMEN: Soft, nontender BP 136/50 Pulse 61 Temp (Src) 97.2 (more content not included)... [facility] NURSING PROGon 01-22-2021 NURSING PROG HNO ID: [id number] Author: Shayy Koenig RN Service: ? Author Type: Registered Nurse Type: Nursing Progress Note Filed: 01/22/2021 10:28 AM Note Text: Nursing Progress Note Patient Name: Roseann Dale Patient Location: [address]/[place] [address] Transfer Note: Patient transferred into room/unit 512 in stable condition. Actions taken: Patient and family oriented to 5D unit policies and procedures. Educated on fall precautions, reason for ALEKSEY's, pain management, prescribed medications, use of incentive spirometer, and use of call salter prior to getting OOB. Patient resting in bed. Call light within reach. All needs met at this time. Will continue to monitor. This note was completed by: Shayy Koenig [facility] OPERATIVE NOon 01-22-2021 OPERATIVE NO HNO ID: [id number] Author: Alo Lomeli MD Service: Orthopaedic Surgery Author Type: Physician Type: Operative Report Filed: 01/22/2021 9:19 AM Note Text: OPERATIVE/PROCEDURE REPORT LOG ID: [id number] Surgery/Procedure Date: 01/22/2021 Incision/Procedure Start Time: 8:08 AM Incision Close/Procedure End Time: 9:04 AM Surgeon(s)/Proceduralist(s ) and Measurement Specialist(s): Surgeon(s) and Role: * Alo Lomeli MD - Primary Asst Rodrigue SMITH and Trisha Stafford SA Anesthesia: General Preop Diagnosis: Pre-Op Diagnosis Codes: * Primary osteoarthritis of right hip [M16.11] Postop Diagnosis: Pre-Op Diagnosis Codes: * Primary osteoarthritis of right hip [M16.11] Procedure(s): Procedure(s) (LRB): ARTHROPLASTY REPLACE JOINT TOTAL HIP (Right) Implants: Implant Name Type Inv. Item Serial No. Head Bander And Liner Operator Lot No. [id number] Model Num No. Used HEAD V40 32MM -4MM OFFSET TAPER BIOLOX DELTA FEMORAL HIP - [id number] Joint - Hip HEAD V40 32MM -4MM OFFSET TAPER BIOLOX DELTA FEMORAL HIP [employer] [id number] Right [id number] SCREW TRIDENT II 6.5MM 30MM BONE LOW PROFILE HEXAGONAL STERILE - [id number] Screw SCREW TRIDENT II 6.5MM 30MM BONE LOW PROFILE HEXAGONAL STERILE [employer] [employer] [id number] Right [id number] 1 SHELL TRIDENT II 50MM D TRITANIUM ACETABULAR 3 SCREW HOLE CLUSTER STERILE - [id number] Joint SHELL TRIDENT II 50MM D TRITANIUM ACETABULAR 3 SCREW HOLE CLUSTER STERILE [employer] [employer] [id number] Right [id number] 1 TRIDENT X3 POLYETHYLENE INSERT 0DEG 32MM SZ D Implant CHRIS [id number] Right [id number] 1 STEM ACCOLADE II 5 127D FEMORAL - [id number] Joint - Hip STEM ACCOLADE II 5 127D FEMORAL [employer] [id number] Right [id number] 1 Problem List: ACTIVE PROBLEM LIST Right Hip Pain Myasthenia Gravis (Hcc) Primary Hypertension Aortic Regurgitation Ddd (Degenerative Disc Disease), Lumbar Swelling Status Post Right Hip Replacement Findings: Complete eburnation of femoral head and periacetabular osteophytes Specimens: Femoral head OPERATIVE INDICATIONS: This patient was seen in the office and found to have intractable right hip pain with imaging showing significant joint space narrowing. They exhausted non-operative management with a combination of meds, activity modification, and home exercise program. These were no longer providing the relief they desired. The risks, benefits and alternatives to that were discussed at length with the patient. A shared decision was made. Complications discussed included but were not limited to leg length discrepancy, dislocation, fracture, infection, blood clots, and medical complications. PROCEDURE: The patient was taken to the operating room and after satisfactory spinal anesthesia she was placed in the lateral position with therighthip superior. Herright hip and lower extremity were prepped and draped in the usual sterile fashion. A 6-inch incision was made over the trochanter, curving posteriorly. Dissection was carried down to the tensor fascia esperanza, which was incised in line with the incision. A Charnley retractor was placed in the wound. Sciatic nerve was identified and protected. The piriformis was incised off the back of the trochanter and again was tagged. The capsule was opened posteriorly and the hip was dislocated. The femoral neck was cut 1 fingerbreadth proximal to the lesser trochanter and retractors were placed around the acetabulum. The capsulectomy was completed. Reaming was begun with a 38 millimeter reamer and carried up to a 50 mm reamer, and a 50 mm trident II cup was impacted in 45 degrees of abduction and 20 degrees of anteversion. One 6.5mm screw was placed.The cup was stable and a liner was impacted, 32 millimeters. Attention was then turned to the canal, which was opened with a box osteotome and a T-handled reamer. Broaching was begun with a size 0 and carried up to a size 5 accolade II stem. Trial reduction was carried out with a 32, -4 mm head. The hip was stable as it was taken through a full range of motion. X-ray was obtained intraoperatively to show satisfactory positioning of the components. The final size 32 head was impacted on the Leon taper. Again, the hip was reduced. The wound was copiously irrigated with antibiotic solution. Closure was begun. The piriformis was repaired through drill holes in the back of the trochanter. The tensor fascia was repaired with 0 suture. Subcutaneous tissues were closed with 2-0 suture. Skin was closed with subcuticular 3-0 undyed suture. Steri- Strips and sterile dressing were applied. The patient was then awakened and taken to the recovery room in satisfactory condition. The Arthritis was primary osteoarthritis Estimated Blood Loss: 150 mls Drains: None Complications: None I/primary surgeon/proceduralist performed the procedure with assistance. I was present during the entire procedure including non cisse portions and performed the proc (more content not included)... [facility] THERAPY NTon 01-22-2021 THERAPY NT HNO ID: [id number] Author: Bruno Boogie, PT Service: Physical Therapy Author Type: Physical Therapist Type: Therapy (PT/OT/Speech/Resp) Filed: 01/22/2021 4:17 PM Note Text: Physical Therapy Evaluation SERVICE DATE: 01/22/2021 SERVICE TIME: 1356 to 1436 ROOM: [place] [address] Recommended Discharge Disposition: Home PT Anticipated Discharge Needs: Physical Assist at Home Physical Assist at Home for: Cleaning;Laundry;Meals;Lakshmi pping;Transportation;Self Care Recommended Discharge Equipment: No equipment needs anticipated PT 6 Clicks Score: 20 Precautions/Activity Restrictions: Total Hip Replacement;Weight Bearing Restrictions Extremity With Weight Bearing Restricted: Right Lower Extremity Right Lower Extremity Weight Bearing Status: WBAT Total Hip Replacement Precautions: Posterior Current Hospital Course: POD0 s/p R LELAND performed on 01/22/[address] Lomeli Reason for Hospital Admission: s/p elective R LELAND Relevant Past Medical History: myasthenia gravis, lumbar DDD, OA, aortic regurgitation Response to Therapy Interventions: Good participation in activities, Requires additional time to complete activities, Low activity tolerance Continue skilled needs due to: Functional mobility/skill impairments, Safety concerns Physical Therapy Problem List: Impaired Self Care;Decreased Activity Tolerance;Decreased Range Of Motion;Safety Deficits;Decreased Strength;Functional Mobility Impairment;Balance Impaired Treatment Interventions: Education;Strengthening;Fu nctional Mobility Training;Balance Training;Neuromuscular Re-education Plan for next visit: Bed mobility, Fall prevention, Gait training, Pre-gait activities, Sit to Stand Transfers, Exercise instruction/handout, Standing Balance, Standing Tolerance, Walker Training Home Environment Patient Lives With: Self/Alone;Family (dtr will be staying with pt and assisting) Assistance Available: 24 Hour Entry To Home: Ramp Number Of Stairs To Bed/Bath: 0 Tub/Shower Type: WIS Laundry: 1st floor - dtr can complete Equipment Owned: Cane;Grab Bars-Shower;Grab Bars-Toilet;Shower Chair;Wheeled Walker;Elevated Toilet Seat Patient Report: Pt reports she was having significant pain prior to surgery and is relieved that it feels different post-op CURRENT FUNCTIONAL STATUS: Most recent performance Current Functional Mobility Assist Level Additional Information Rolling Supine to Sit Stand By Assistance;Additional Information min VCs to maintain hip precautions Sit to Supine Scooting Stand By Assistance;Additional Information anterior scoot eob Sit to Stand Contact Guard Assistance;Additional Information min VCs to discourage anterior trunk lean and encouraged to push from surface to complete Stand to Sit Contact Guard Assistance Bed to Chair Toilet/Commode Gait Contact Guard Assistance;Additional Information Gait Device: Wheeled Walker Gait Distance (feet): 95' Step-to gait with mod RLE antalgic pattern Stairs Curb Step Car Transfer Blank devine indicate activity not attempted Gait Deviations Right Lower Extremity: Foot clearance decreased;Heel strike during initial stance decreased;Push off during terminal stance decreased;Lacks hip extension beyond mid-stance;Stance time decreased;Weight bearing decreased General Deviations/Observations: Antalgic gait;Eleanor decreased;Step length decreased JH-HLM: 7: Walk 25 feet or more Learning/Educational Needs: Discharge Plan;Functional Activities/Mobility;Pain Management;Safety;Precauti ons Goals for Plan of Care: Patient /Caregiver Goals: Care For Self Goals: Patient will demonstrate understanding of importance of mobility during hospital stay and resolve all functional needs identified.;Patient will demonstrate progress with functional mobility to allow safe discharge to home with available support and/or physical assistance. Rehab Potential: Good Patient will be discontinued from Physical Therapy when no further skilled needs are identified in this setting. PLAN: PT Frequency: Once daily Plan of Care developed with: Patient TREATMENT INTERVENTIONS: Therapy Diagnosis: Difficulty walking-musculoskeletal Interventions Provided: Evaluation;Therapeutic Exercise (70889);Gait Training (45446) $ Evaluation-Low (92760) Billed Units: 1 unit Therapeutic Exercise (36879) Treatment Minutes: 15 $ Therapeutic Exercise (84535) Billed Units: 1 unit Gait Training (20062) Treatment Minutes: 10 $ Gait Training (59150) Billed Units: 1 unit Training AND education provided in: Anatomy and impact on deficits, Assistive device use, Bed mobility, Benefits of in-hospital mobility, Discharge planning, Exercise program, Expected functional level, Falls prevention, Gait pattern, reduction of deviations, Standing balance, Role of Physical Therapy, Precautions/restrictions, Pre-gait activities, Positioning, Pain Neuroscience The following therapeutic skills were use (more content not included)... [facility] XR PELVIS 1V APon 01-22-2021 XR PELVIS 1V AP * * *Final Report* * * DATE OF EXAM: Jan 22 2021 9:46AM LUX 5239 - XR PELVIS 1V AP / PROCEDURE REASON: Post-operative / post-procedure assessment, asymptomatic * * * * Physician Interpretation * * * * EXAMINATION: XR PELVIS 1V AP CLINICAL HISTORY: POST-OP RIGHT HIP REPLACEMENT Technique: XR PELVIS 1V AP -- pelvis with 1 views on 1 images Comparison: None RESULT: Patient is status post right total hip arthroplasty. The orthopedic hardware is intact. No acute fracture. Associated soft tissue changes are compatible with recent surgical procedure. IMPRESSION: Status post right total hip arthroplasty. Entry Level Accounting Clerk: ANNA Transcribe Date/Time: Jan 22 2021 9:47A Dictated by : THI YUEN MD This examination was interpreted and the report reviewed and electronically signed by: THI YUEN MD on Jan 22 2021 9:47AM EST [id number] [facility] XR PELVIS 1V AP * * *Final Report* * * DATE OF EXAM: Jan 22 2021 8:32AM ECHO 5239 - XR PELVIS 1V AP / PROCEDURE REASON: Primary osteoarthritis of right hip * * * * Physician Interpretation * * * * EXAMINATION: XR PELVIS 1V AP CLINICAL INFORMATION: 81 years old Female with Primary osteoarthritis of right hip COMPARISON: 09/29/2020 RESULT: Single frontal intraoperative image of the pelvis demonstrates RIGHT total hip arthroplasty in progress. IMPRESSION: Intraoperative examination for surgical planning and documentation. Entry Level Accounting Clerk: ANNA Transcribe Date/Time: Jan 22 2021 12:43P Dictated by : SHU PRADO DO This examination was interpreted and the report reviewed and electronically signed by: SHU PRADO DO on Jan 22 2021 12:43PM EST [id number] [facility] Basic Metabolic Panlon 01-20 Anion gap [Moles/Vol] 10 mmol/L Normal 9-18 [facility] Comment on above: Performed By: #### F ERR ####[address] [phone] Calcium [Mass/Vol] 9.2 mg/dL Normal 8.5-10.[address] [facility] Comment on above: Performed By: #### F ERR ####[place] [phone] Chloride [Moles/Vol] 100 mmol/L Normal 97-105 [facility] Comment on above: Performed By: #### F ERR ####[address] [phone] CO2 [Moles/Vol] 29 mmol/L Normal 22-30 [facility] Comment on above: Performed By: #### F ERR ####[place] [phone] Creatinine [Mass/Vol] 0.66 mg/dL Normal 0.58-0.96 [facility] Comment on above: Performed By: #### F ERR ####[address] [phone] eGFR- Amer. >[address] [facility] Comment on above: Performed By: #### F ERR ####[address] [phone] eGFR-All Other Races >60 Normal [facility] Comment on above: Result Comment: eGFR (Estimated GFR) Units of measure: mL/min/1.73 meters squared eGFR is derived from the reexpressed MDRD Study equation using the following parameters: serum creatinine, age, gender and race. The creatinine assay has been calibrated to be traceable to IDMS. An eGFR <60 mL/min/1.73m2 for >3 months is consistent with chronic kidney disease. Refer to KDOQI guidelines for clinical interpretation. In patients with unstable renal function, e.g. those with acute kidney injury, the eGFR may not accurately reflect actual GFR. Performed By: #### F ERR ####[address] [phone] Glucose [Mass/Vol] 102 mg/dL High 74-[address] [facility] Comment on above: Result Comment: The [place] [employer] (ADA) provides guidance for cutoff values for fasting glucose and random glucose. The ADA defines fasting as no caloric intake for at least 8 hours. Fasting plasma glucose results between 100 to 125 mg/dL indicate increased risk for diabetes (prediabetes). Fasting plasma glucose results greater than or equal to 126 mg/dL meet the criteria for diagnosis of diabetes. In the absence of unequivocal hyperglycemia, results should be confirmed by repeat testing. In a patient with classic symptoms of hyperglycemia or hyperglycemic crisis, random plasma glucose results greater than or equal to 200 mg/dL meet the criteria for diagnosis of diabetes. Reference: Standards of Medical Care in Diabetes 2016, [place] [employer]. Diabetes Care. 2016.39(Suppl 1). Performed By: #### F ERR ####[address] [phone] Potassium [Moles/Vol] 4.0 mmol/L Normal 3.7-5.1 [facility] Comment on above: Performed By: #### F ERR ####[address] [phone] Sodium [Moles/Vol] 139 mmol/L Normal 136-[address] [facility] Comment on above: Performed By: #### F ERR ####[address] [phone] Urea nitrogen [Mass/Vol] 15 mg/dL Normal 7-21 [facility] Comment on above: Performed By: #### F ERR ####[address] [phone] CBCon 01-20-2021 Absolute nRBC <0.01 Normal <0.01 [facility] Comment on above: Performed By: #### F ERR ####[place] [address] [address], [place] [phone] Erythrocyte distribution width (RBC) [Ratio] 12.3 % Normal 11.5-15.0 [facility] Comment on above: Performed By: #### F ERR ####[place] [address] [address] [place], [place] [phone] Hematocrit (Bld) [Volume fraction] 43.1 % Normal 36.0-46.0 [facility] Comment on above: Performed By: #### F ERR ####[place] [address] [address] [place], [place] [phone] Hemoglobin (Bld) [Mass/Vol] 13.5 g/dL Normal 11.5-15.5 [facility] Comment on above: Performed By: #### F ERR ####[place] [address] [address] [phone] MCH 28.8 pG Normal 26.0-34.0 [facility] Comment on above: Performed By: #### F ERR ####[place] [address] [address] [phone] MCHC (RBC) [Mass/Vol] 31.3 g/dL Normal 30.5-36.0 [facility] Comment on above: Performed By: #### F ERR ####[place] [address] [address] [place], [place] [phone] MCV (RBC) [Entitic vol] 91.9 fL Normal 80.0-100.0 [facility] Comment on above: Performed By: #### F ERR ####[place] [address] [address] [place], [place] [phone] Platelet mean volume (Bld) [Entitic vol] 9.6 fL Normal 9.0-12.7 [facility] Comment on above: Performed By: #### F ERR ####[place] [address] [address] [place], [place] [phone] Platelets (Bld) [#/Vol] 195 10*3/uL Normal 150-400 [facility] Comment on above: Performed By: #### F ERR ####[place] [address] [place], [place] [phone] RBC (Bld) [#/Vol] 4.69 10*6/uL Normal 3.90-5.20 [facility] Comment on above: Performed By: #### F ERR ####[place] [address] [place], [place] [phone] WBC (Bld) [#/Vol] 5.92 10*3/uL Normal 3.70-11.00 [facility] Comment on above: Performed By: #### F ERR ####[address] [phone] Ferritinon 01-20-2021 Ferritin [Mass/Vol] 69.4 ng/mL Normal 14.7-205.1 [facility] Comment on above: Performed By: #### F ERR ####[address] [phone] HISTORY PHYSICALon HISTORY PHYSICAL HNO ID: [id number] Author: Sita Montiel APRN.REPATCHER Service: ? Author Type: Nurse Practitioner Type: HANDP Filed: 01/20/2021 9:22 AM Note Text: HISTORY AND PHYSICAL EXAMINATION SERVICE DATE: 01/20/2021 SERVICE TIME: 9:21 AM PRIMARY CARE PHYSICIAN: Blue Navarro DO REASON FOR VISIT: Roseann Dale is a 81 year old female who is scheduled for Procedure(s): ARTHROPLASTY REPLACE JOINT TOTAL HIP (Right) at the request of Dr. Alo Lomeli for consultation. My final recommendation will be communicated back to the requesting physician by way of shared medical record or letter. Subjective CHIEF COMPLAINT: right hip HPI: Pt. presenting with history of osteoarthritis of right hip causing pain that has progressively worsened over the past couple years affecting activity level and quality of life. Pt. reports the pain as constant ache that becomes sharp with activity and relieved with rest. Pt. has attempted an injection and physical therapy; she ambulates with a cane. Pt. is recommended for surgery. REVIEW OF SYSTEMS: General: No weight loss, malaise or fevers. Neurological: MG Negative for: delirium, headaches, seizures, TIA and strokes. Respiratory: No history of current cough or dyspnea, or pneumonia in the past 6 weeks. No history of respiratory/pulmonary symptoms or problems. 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 GI: Hx bowel obstruction Negative for: abdominal pain, difficulty swallowing, GERD, liver disease, nausea, pancreatitis and vomiting. : No history of dysuria, frequency or incontinence, stones or chronic kidney disease. No difficulty urinating, nocturia > 1 time per night or hematuria. 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 Endocrine: No history of diabetes. Has not taken steroids within the past 30 days. No history of endocrinological symptoms or problems. Hematology: No history of bleeding or clotting disorder. Patient is not taking anti-coagulation or platelet medications. No history of hematological symptoms or problems. Oncology: No history of CA metastasis, chemo within 30 days, or radiotherapy within 90 days. No history of oncological symptoms or problems. Psych: No history of psychiatric symptoms or problems. Musculoskeletal: SEE HPI Skin: Negative for lesions, rash and itching. PAST MEDICAL HISTORY Diagnosis Date - Myasthenia gravis (HCC) 01/20/2021 - Primary hypertension 01/20/2021 PAST SURGICAL HISTORY Procedure Laterality Date - APPENDECTOMY - HYSTERECTOMY HX - PAST SURGICAL HISTORY OF Thymectomy - PAST SURGICAL HISTORY OF emergent surgery for bowel obstruction FAMILY HISTORY Problem Relation Age of Onset - Cancer Mother lung - Hypertension Father - Stroke Father Social History Tobacco Use - Smoking status: Former Smoker Packs/day: 0.50 Years: 5.00 Pack years: 2.50 Quit date: 09/30/1979 Years since quittin.3 - Smokeless tobacco: Never Used Substance Use Topics - Alcohol use: Not Currently - Drug use: Never Prior to Admission medications as of 01/20/21 0859 Medication Sig Last Dose Taking CALCIUM ORAL Take by mouth once daily. Taking Yes MULTI-VITAMIN ORAL Take by mouth once daily. Taking Yes gabapentin (NEURONTIN) 300 mg capsule Take 1 capsule by mouth three times daily for 30 days. Taking Yes alendronate (FOSAMAX) 70 mg tablet TAKE 1 TAB WEEKLY ON EMPTY STOMACH WITH GLASS OF WATER*AVOID EATING/LAYING FLAT FOR 30 MINUTES* Taking Yes citalopram (CELEXA) 20 mg tablet TAKE 1 TABLET BY MOUTH EVERYDAY AT BEDTIME Taking Yes furosemide (LASIX) 40 mg tablet Take 40 mg by mouth once daily. Taking Yes lisinopril (ZESTRIL, PRINIVIL) 10 mg tablet Take 20 mg by mouth once daily. Taking Yes diazePAM (VALIUM) 5 mg tablet Take 5 mg by mouth every 6 hours as needed. Taking Yes mupirocin (BACTROBAN) 2 % ointment Apply 0.5 inch with cotton swab ( Q tip) in each nostril in the morning and evening for 5 consecutive days. No medication comments found. ALLERGIES No Known Allergies Objective PHYSICAL EXAM: General: alert and oriented and healthy appearance. Pertinent negatives noted - not distressed. oriented x 3 . Skin: normal color, no rash or lesions. HEENT: EOM intact, pupils equal round and pupils reactive to light. Pertinent negatives noted - no carotid bruit. Oropharynx clear. Neck Supple . Cardiovascular: regular rate and rhythm, normal S1 and S2, no rub, murmurs, or gallop. Respiratory: normal breath sounds, no wheezes or crackles. No chest wall deformity or tenderness. Abdomen: bowel sounds present and soft. Pertinent negatives noted - not tender. Extremities: no deformity, no edema or tenderness, no joint swelling or clubbing. , except right hip- detailed (more content not included)... Normal [facility] Iron and TIBCon 01-20-2021 Iron [Mass/Vol] 73 ug/dL Normal 41-186 [facility] Comment on above: Performed By: #### F ERR ####[facility] [place], [place] [phone] TIBC 257 ug/dL Normal 232-386 [facility] Comment on above: Performed By: #### F ERR ####[facility] [place] [address] [place], [place] [phone] Transferrin Saturatn 28 % Normal 15-57 [facility] Comment on above: Performed By: #### F ERR ####[place] [address] [place], [place] [phone] PreOp/PreProc COVIDon 2020 SARS-CoV-2 (COVID-19) RNA JACKSON+probe Ql (Unsp spec) UPPER RESPIRATORY TRACT SWAB Normal [facility] Comment on above: Performed By: #### P OCOVD ####[address] [phone] SARS-CoV-2 (COVID-19) RNA JACKSON+probe Ql (Unsp spec) Negative for COVID19 (SARS CoV2) by RT-PCR or equivalent method. Normal Negative for COVID19 (SARS CoV2) by RT-PCR or equivalent method. [facility] Comment on above: Result Comment: This test was developed and its performance characteristics determined by [facility] [place] [place]. This test has been authorized by FDA under an Emergency Use Authorization (EUA). This test has been validated in accordance with the FDA's Guidance Document Policy for Diagnostics Testing in Laboratories Certified to Perform High Complexity Testing under CLIA prior to Emergency use Authorization for Coronavirus Disease 2019 during the Public Health Emergency issued on August 03, 2019. Test performed by [facility], [facility] [place], [facility] [place] [address]. Performed By: #### P OCOVD ####[place] [address] [place], [place] [phone] Type and SCR (30D)on 021 ABO/RH(D) Positive Normal [facility] Comment on above: Performed By: #### T SCR30 #### [place] [address] Performed By: #### C ONABO #### [place] [address] CNOVon 01-12-2021 CNOV Office Visit (ORMIDD ) -- ROSEANN DALE ([id number]) 1940 F Date Time Provider Department 01/12/21 10:30 AM ALO LOMELI During your visit today, we recorded the following information about you: Alo Lomeli MD 01/12/2021 11:26 AM Signed She is here for progressive right hip and groin pain. No injury or trauma. Pain is worsened over the last several months to the point that it is affecting her quality of life. She has pain at rest and at night. She struggles to walk even across the room without pain. Takes medication without relief both ibuprofen and gabapentin. Has some back issues as well. Main pain is in her right groin.Review of systems negative for fever, weight loss, malaise, fatigue, significant headache, vision changes, hearing loss, neck swelling, cough, chest pain, shortness of breath, dyspnea on exertion, abdominal pain, nausea, vomiting, diarrhea, urinary dysfunction, upper/lower extremity numbness/tingling/weakness /edema, heat/cold intolerance On exam very antalgic gait. Right hip flexion is 70 with virtually no rotation. Negative straight leg raise. Left hip flexion 90 with rotation of 30. Neurologically intact. X-rays and MRI show advanced arthritis in the right hip with also some tearing in the anterior labrum. We discussed treatment options and I think she is an excellent candidate for a right hip replacement. I went over the risks and benefits of the procedure in great detail and all questions answered. She will give this some consideration and let us know if she would like to proceed. Alo Lomeli MD CONSULT ORTHOPAEDIC: HIP PRIMARY CARE PHYSICIAN: Blue Navarro DO REFERRING PROVIDER: Starr Green [address] [facility] [address] ASSESSMENT AND PLAN: Impression: Right Hip Severe Degenerative Osteoarthritis, Primary Roseann Dale has radiograph and physical exam evidence of degenerative joint disease and wishes to pursue surgery. This patient appears to have sufficient symptoms to warrant surgical intervention and is an appropriate candidate for right Primary Total Hip Arthroplasty as evidenced by six months of unsuccessful non-operative treatment as outlined in the HPI below and progressive symptoms. Progressive symptoms include: Pain impacting sleep or causing fatigue Pain effecting living situation. We had a lengthy discussion regarding the risk and benefit of surgery, the alternatives, limitations and personnel involved. These included but were not limited to infection, persistent pain, instability, nerve injury, blood clots, and medical complications. We also discussed the pre-operative course, surgery itself and rehabilitation. Ruba-operative blood management and transfusion issues were discussed, and options clearly outlined. The patient has not consented to the use of the banked allogenic blood if medically necessary. The patient has elected to schedule surgery at this time or intends to call the office with a surgical date. Shared decision making occurred while obtaining informed consent. The patient will be scheduled for a pre-operative education class at which time they will have their nasal swab completed and will be given CHG cloths along with the verbal and written instructions for their use. Patient has been instructed and has been scheduled or will call to schedule attendence in one of the total joint perioperative classes offered prior to proceeding with LELAND.. The patient has been ordered: No orders placed today. CONSULTS: Patient does not require consults for optimization at this time. ACTIVE PROBLEM LIST Right Hip Pain SUBJECTIVE CHIEF COMPLAINT: Hip Pain HPI: Roseann Dale is a 80 year old patient here for evaluation and management of Right hip pain.Roseann Dale has had progressive problems with the hip(s) constantly over the past 10 month(s) interfering with activities which include walking 2 blocks and exercise. The problem began limiting activities 1-3 years ago. Currently the pain in the joint is rated at 9 out of 10 with minimal activity. The pain is chronic and constant and is located in the right groin. The pain is described as aching. Relieving factors include no relieving factors. There is no specific incident that brought about this pain. Roseann Dale has no additional complaints. FUNCTIONAL STATUS: Do light work around the house, such as dusting or washing dishes (2.70 METs) Preoperative Ambulatory Status: Impaired Community Distances Number of Entry Steps: 2 Bedroom Location: Second floor Bathroom Location: Second floor Caregiver Assistance: Consistent/Live-In (5-7 days/wk) Home Location: Up to 150 miles PREVIOUS TREATMENTS: Attempted Weight Loss REVIEW OF SYSTEMS: PAIN ASSESSMENT: See HPI. MUSCULOSKELETAL: See HPI. Risk Factors for Total Joint Arthroplasty (TJA) (more content not included)... [facility] 12-28-2020 [facility] HNO ID: [id number] Author: Abimael Resendiz Service: Radiology Author Type: Carbon Paper Machine Operator Type: Allied Health Filed: 12/28/2020 1:50 PM Note Text: Radiology Service Progress Note PATIENT NAME: Roseann Dale DATE OF SERVICE: December 28, 2020 TIME: 11:47 AM PATIENT IDENTITY VERIFICATION COMPLETED USING TWO (2) IDENTIFIERS: Name and Date of confirmed by patient verbally. FALL SCREENING: Has the patient had 2 falls in the last year or 1 fall with injury or currently using an Ambulatory Assistive Device (Walker, Cane, Wheelchair, Crutches, etc.)? Yes, Patient High Risk for Falls What interventions were put in place to prevent falls during this visit? Yellow Falls Risk Wristband Applied PATIENT GENDER DATA: Female. status: : No status: NO. PATIENT RELEVANT IMPLANT DATA REVIEWED: Yes RADIOLOGY DEPARTMENT: MR; Exam(s) Completed: Lower MSK: Hip, right PERIPHERAL IV DATA: Not applicable SIGNED BY: Abimael Resendiz December 28, 2020 11:47 AM [facility] ROSEANN DALE ([id number]) 1940 F Date Time Provider Department 12/28/20 STARR GREEN [facility] [place] During your visit today, we recorded the following information about you: Starr Green APRN.REPATCHER 12/28/2020 2:29 PM Signed Called patient. Left voicemail. Please advise patient. MRI hip shows advanced hip arthritis with degenerative tearing of the labrum. Recommend Orthopedic consult. Order placed. Izabella Jacobsen Tool Shaper Set Up Operator 12/28/2020 3:02 PM Signed Patient is returning Starr call pertaining to below message, Imaging Results Patient would like to know if Starr could recommend a physician for Ortho call back [phone] Allergies As of Date: 12/28/2020 (No Known Allergies) Date Reviewed: 12/14/2020 Reviewed by: Kelsy Bella Ma - Fully Assessed 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: Results [95] Primary Visit Diagnosis:Primary osteoarthritis of right hip [M16.11] Order(s):CONSULT TO ORTHOPAEDICS [9026] Order #: [id number]: 1 FUTURE Prescriptions as of 12/28/2020 - gabapentin (NEURONTIN) 300 mg capsule Take 1 capsule by mouth three times daily for 30 days. - alendronate (FOSAMAX) 70 mg tablet TAKE 1 TAB WEEKLY ON EMPTY STOMACH WITH GLASS OF WATER*AVOID EATING/LAYING FLAT FOR 30 MINUTES* - citalopram (CELEXA) 20 mg tablet TAKE 1 TABLET BY MOUTH EVERYDAY AT BEDTIME - furosemide (LASIX) 40 mg tablet Take 40 mg by mouth once daily. - lisinopril (ZESTRIL, PRINIVIL) 10 mg tablet Take 10 mg by mouth once daily. - diazePAM (VALIUM) 5 mg tablet Take 5 mg by mouth every 6 hours as needed. Problem List As Of Date 12/28/2020 Noted Resolved Right hip pain [M25.551] 11/12/2020 Encounter Status:Closed by BRIANA MOSS on 12/28/20 [facility] MRI HIP WO IVCON RTon 2020 MRI HIP WO IVCON RT * * *Final Report* * * DATE OF EXAM: Dec 28 2020 12:02PM [facility] 0207 - MRI HIP WO IVCON RT / PROCEDURE REASON: Arthritis of hip * * * * Physician Interpretation * * * * EXAMINATION: MRI RIGHT HIP Clinical history: Arthritis of hip Technique: Multiplanar, multi sequential images of the pelvis and hip Comparison: None available at this time RESULT: Right hip: There is normal femoral head and neck morphology. There is no fracture or avascular necrosis. There is advanced chondral loss in the lateral aspect of the hip articulation with moderate to advanced edema and subchondral cysts. No large hip effusion. 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 12-14-2020 [facility] Office Visit ([facility] ) -- ROSEANN DALE ([id number]) 1940 F Date Time Provider Department 12/14/20 11:10 AM STARR GREEN [facility] During your visit today, we recorded the following information about you: Temperature Pulse Blood pressure Weight 97.4 degrees 66/minute 139/69 68 kg Height 1.6 m Starr Green APRN.REPATCHER 12/14/2020 1:07 PM Signed Spine Care Path Low Back Pain - Acute (0 - 6 weeks) Initial Exam SUBJECTIVE HISTORY OF PRESENT ILLNESS: Roseann Dale is a 80 year old female who presents with a chief complaint of low back and leg pain and is seen in consultation requested by SELF Patient comes in today from [facility] Patient presents with back and right leg pain for the past 6 weeks Denies accident/injury Pain localized to right low back, Right medial thigh Pain described as sharp, aching Radiation: right medial thigh intermittent Numbness/Tingling: bilateral knees down to feet Tried a cane- was too shaky. Will not use a walker Pain worse with walking Pain improved with rest, sitting back support Interventions: None Medications: tylenol prn- some help, On fosamax, valium Physical Therapy: None Treating Physicians: Dr Edwin Thomas 2017- Trochanteric bursitis and lumbar radic- rx for therapy History of Spine Injections/Surgery: None Hx: thymectomy, osteoporosis CC: back/leg pain Patient follows up s/p right IA hip injeciton on 11/12/[address] Rajan. Patient reports a couple days of improvement. 2 weeks after injection things worsened. Doesn't trust her leg. Giving out on here. Back pain somewhat improved from initial, but right leg pain has returned. Tingling in knees down to feet bilaterally - non deramatomal Losing balance and feels she is going to fall. Started on low dose gabapentin at last visit. Taking BID. Not tired. Physical therapy seeing Sean mendez at [facility] 2 x per week and feels helpful. Hx: s/p Right transforaminal epidural steroid injection at L34 [address] Gil. Patient reports 85% improvement in her back and right thigh pain. Other Issues Addressed at the Visit Today: None. Precipitating Event: None PAIN EVALUATION 12/14/2020 1039 Pain Level: 6 Pain Location: Back-Lower right hip Description: Sharp;Shooting Duration Amount of Time: 4 Duration Units: Years Frequency: Continuous Intervention: Medication Comments: pt reports no relief from injection on 11/12/2020; pt reports being woken up sometimes from pain; has trouble getting comfortable Litigation: No Workers' Compensation: No YELLOW AND BLUE FLAGS YES-Neg Attitude; Back Pain is Disabling No-Avoiding Activity (for Fear of Pain) YES-Depression or Anxiety Disorders No-Social Problems No-Substance Use Disorder No-Job Dissatisfaction No-Financial Disincentives Patient Entered Questionnaires Spine Questions 09/29/2020 10/22/2020 12/09/2020 Pain Location: Lower back Lower back Lower back Pain Duration: Less than 1 month - - Symptoms from neck/cervical spine: No No No Employment Status: Disabled due to back pain, permanently or temporarily - Retired Off work 1 month or more due to back/neck pain: Does not apply - - Applied for/receive disability/WC due to low back/neck pain Does not apply - - Involved in law suit/legal claim: No - No Spine Red Flags 09/29/2020 12/09/2020 Any type of cancer: No No Unexplained fever: No No Bowel or bladder disfunction: No No Unintentional weight loss: No No Osteoporosis: Yes Yes PROMIS Score Percentiles Physical Health 09/29/2020 12/09/2020 Physical Function Percentile 2 4 Sleep Percentile 54 38 Fatigue Percentile 1 8 Pain Interference Percentile 1 1 Social Health 09/29/2020 12/09/2020 Social Role Satisfaction Percentile 8 27* PROMIS Global Health Scale 09/29/2020 Physical Health Percentile 1 Mental Health Percentile 13 Percentiles provide an indication of how the patient's score ranks in relation to the general population. Higher percentile rankings indicate better function/quality of life. 50th percentile is the average of the general population and indicates half of respondents had a worse score. Depression Screening: PHQ-9 09/29/2020 12/09/2020 Score 10 9 PHQ-9 Self Harm 09/29/2020 12/09/2020 Question 9 Not at all Not at all PHQ-9 Self-Harm (Item 9) response options: 0 Not at all 1 Several days 2 More than half the days 3 Nearly every day PHQ-9 Levels: 0-4 No - mild depression 5-9 Mild depression 10-14 Moderate depression 15-19 Moderately severe depression 20-27 Severe depression ACTIVE PROBLEM LIST Right Hip Pain No past medical history on file. No past surgical history on file. Social History Tobacco Use - Smoking status: Former Smoker Quit date: 09/30/1979 Years since quittin.2 - Smokeless tobacco: Never Used Substance Use Topics - Alcohol use: (more content not included)... [facility] OBSOLETEon 11-09-2020 OBSOLETE Refill (SPMEFV) -- ROSEANN DALE ([id number]) 1940 F Date Time Provider Department 11/09/20 STARR GREEN [facility] During your visit today, we recorded the following information about you: Allergies As of Date: 11/09/2020 (No Known Allergies) Date Reviewed: 10/26/2020 Reviewed by: Tanisha Caldera Ma - Fully Assessed 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: Refill Request [94] Order(s):gabapentin (NEURONTIN) 100 mg capsuleTake 1 capsule by mouth three times daily for 30 days.Disp: 90 capsuleRfl: 0 Prescriptions as of 11/09/2020 Sig: GABAPENTIN 100 MG CAPSULE Take 1 capsule by mouth three* ALENDRONATE 70 MG TABLET TAKE 1 TAB WEEKLY ON EMPTY ST* CITALOPRAM 20 MG TABLET TAKE 1 TABLET BY MOUTH EVERYD* FUROSEMIDE 40 MG TABLET Take 40 mg by mouth once rosa* LISINOPRIL 10 MG TABLET Take 10 mg by mouth once rosa* DIAZEPAM 5 MG TABLET Take 5 mg by mouth every 6 ho* Problem List As Of Date: 11/09/2020 (None) Prescriptions ordered this encounter Disp Refills Start End GABAPENTIN 100 MG CAPSULE 90 c* 0 11/09/2020 12/09/2020 Route: ORAL Sig: Take 1 capsule by mouth three times daily for 30 days. Medications Discontinued During This Encounter Prescriptions - gabapentin (NEURONTIN) 100 mg capsule (Discontinued) Take 1 capsule by mouth three times daily for 30 days. Encounter Status:Closed by STARR GREEN on 11/09/20 [facility] CNOVon 10-26-2020 CNOV Office Visit (SPMEFV ) -- ROSEANN DALE ([id number]) 1940 F Date Time Provider Department 10/26/20 7:00 AM STARR GREEN [facility] During your visit today, we recorded the following information about you: Temperature Pulse Blood pressure Weight 96.9 degrees 66/minute 149/81 67.6 kg Height 1.6 m Starr Green APRN.REPATCHER 10/26/2020 7:40 AM Signed Spine Care Path Low Back Pain - Acute (0 - 6 weeks) Initial Exam SUBJECTIVE HISTORY OF PRESENT ILLNESS: Roseann Dale is a 80 year old female who presents with a chief complaint of low back and leg pain and is seen in consultation requested by SELF Patient comes in today from [facility] Patient presents with back and right leg pain for the past 6 weeks Denies accident/injury Pain localized to right low back, Right medial thigh Pain described as sharp, aching Radiation: right medial thigh intermittent Numbness/Tingling: bilateral knees down to feet Tried a cane- was too shaky. Will not use a walker Pain worse with walking Pain improved with rest, sitting back support Interventions: None Medications: tylenol prn- some help, On fosamax, valium Physical Therapy: None Treating Physicians: Dr Edwin Thomas 2017- Trochanteric bursitis and lumbar radic- rx for therapy History of Spine Injections/Surgery: None Hx: thymectomy, osteoporosis CC: back/leg pain Patient follows up s/p Right transforaminal epidural steroid injection at L[address] Gil. Patient reports 85% improvement in her back and right thigh pain. Biggest complaint now is pain in right groin. Limping with walking. Pain with hip abduction. No numbness tingling. No radicular pain. No notable back pain. Started on low dose gabapentin at last visit. Taking BID. Feels helpful. Physical therapy seeing Sean mendez at [facility] 2 x per week and feels helpful. Other Issues Addressed at the Visit Today: None. Precipitating Event: None PAIN EVALUATION 10/26/2020 0704 Pain Location: Leg-Right Description: Aching;Dull;Shooting;Sharp gives out Duration Units: Months Frequency: Intermittent Intervention: Medication ? Litigation: No Workers' Compensation: No YELLOW AND BLUE FLAGS YES-Neg Attitude; Back Pain is Disabling No-Avoiding Activity (for Fear of Pain) YES-Depression or Anxiety Disorders No-Social Problems No-Substance Use Disorder No-Job Dissatisfaction No-Financial Disincentives Patient Entered Questionnaires Spine Questions 09/29/2020 10/22/2020 Pain Location: Lower back Lower back Pain Duration: Less than 1 month - Symptoms from neck/cervical spine: No No Employment Status: Disabled due to back pain, permanently or temporarily - Off work 1 month or more due to back/neck pain: Does not apply - Applied for/receive disability/WC due to low back/neck pain Does not apply - Involved in law suit/legal claim: No - Spine Red Flags 09/29/2020 Any type of cancer: No Unexplained fever: No Bowel or bladder disfunction: No Unintentional weight loss: No Osteoporosis: Yes PROMIS Score Percentiles Physical Health 09/29/2020 Physical Function Percentile 2 Sleep Percentile 54 Fatigue Percentile 1 Pain Interference Percentile 1 Social Health 09/29/2020 Social Role Satisfaction Percentile 8 PROMIS Global Health Scale 09/29/2020 Physical Health Percentile 1 Mental Health Percentile 13 Percentiles provide an indication of how the patient's score ranks in relation to the general population. Higher percentile rankings indicate better function/quality of life. 50th percentile is the average of the general population and indicates half of respondents had a worse score. Depression Screening: PHQ-9 09/29/2020 Score 10 PHQ-9 Self Harm 09/29/2020 Question 9 Not at all PHQ-9 Self-Harm (Item 9) response options: 0 Not at all 1 Several days 2 More than half the days 3 Nearly every day PHQ-9 Levels: 0-4 No - mild depression 5-9 Mild depression 10-14 Moderate depression 15-19 Moderately severe depression 20-27 Severe depression There is no problem list on file for this patient. No past medical history on file. No past surgical history on file. Social History Tobacco Use - Smoking status: Former Smoker Quit date: 09/30/1979 Years since quittin.1 - Smokeless tobacco: Never Used Substance Use Topics - Alcohol use: Not on file - Drug use: Not on file No family history on file. ALLERGIES No Known Allergies CURRENT MEDICATIONS: alendronate (FOSAMAX) 70 mg tablet TAKE 1 TAB WEEKLY ON EMPTY STOMACH WITH GLASS OF WATER*AVOID EATING/LAYING FLAT FOR 30 MINUTES* citalopram (CELEXA) 20 mg tablet TAKE 1 TABLET BY MOUTH EVERYDAY AT BEDTIME furosemide (LASIX) 40 mg tablet Take 40 mg by mouth once daily. gabapentin (NEURONTIN) 100 mg capsule Take 1 capsule by mouth three times daily for 30 days. shellie (more content not included)... [facility] CNOVon 09-29-2020 CNOV Office Visit (SPMEFV ) -- ROSEANN DALE ([id number]) 1940 F Date Time Provider Department 09/29/20 8:10 AM [facility] During your visit today, we recorded the following information about you: Temperature Pulse Blood pressure Weight 97.9 degrees 71/minute 148/60 68 kg Height 1.6 m Starr Green APRN.REPATCHER 09/29/2020 11:14 AM Signed Spine Care Path Low Back Pain - Acute (0 - 6 weeks) Initial Exam SUBJECTIVE HISTORY OF PRESENT ILLNESS: Roseann Dale is a 80 year old female who presents with a chief complaint of low back and leg pain and is seen in consultation requested by SELF Patient comes in today from [facility] Patient presents with back and right leg pain for the past 6 weeks Denies accident/injury Pain localized to right low back, Right medial thigh Pain described as sharp, aching Radiation: right medial thigh intermittent Numbness/Tingling: bilateral knees down to feet Tried a cane- was too shaky. Will not use a walker Pain worse with walking Pain improved with rest, sitting back support Interventions: None Medications: tylenol prn- some help, On fosamax, valium Physical Therapy: None Treating Physicians: Dr Edwin Thomas 2017- Trochanteric bursitis and lumbar radic- rx for therapy History of Spine Injections/Surgery: None Hx: thymectomy, osteoporosis Other Issues Addressed at the Visit Today: None. Precipitating Event: None PAIN EVALUATION 09/29/2020 0736 Pain Level: 5 Pain Location: Back-Lower Description: Aching;Tingling;Throbbing; Sharp;Stabbing Duration Amount of Time: ? right foot and and leg Duration Units: Weeks Frequency: Continuous Intervention: Medication ? Litigation: No Workers' Compensation: No YELLOW AND BLUE FLAGS YES-Neg Attitude; Back Pain is Disabling No-Avoiding Activity (for Fear of Pain) YES-Depression or Anxiety Disorders No-Social Problems No-Substance Use Disorder No-Job Dissatisfaction No-Financial Disincentives Patient Entered Questionnaires Spine Questions 09/29/2020 Pain Location: Lower back Pain Duration: Less than 1 month Symptoms from neck/cervical spine: No PROMIS Score Percentiles Physical Health 09/29/2020 Physical Function Percentile 2 Sleep Percentile 54 Fatigue Percentile 1 Pain Interference Percentile 1 Social Health 09/29/2020 Social Role Satisfaction Percentile 8 Percentiles provide an indication of how the patient's score ranks in relation to the general population. Higher percentile rankings indicate better function/quality of life. 50th percentile is the average of the general population and indicates half of respondents had a worse score. Depression Screening: PHQ-9 Self-Harm (Item 9) response options: 0 Not at all 1 Several days 2 More than half the days 3 Nearly every day PHQ-9 Levels: 0-4 No - mild depression 5-9 Mild depression 10-14 Moderate depression 15-19 Moderately severe depression 20-27 Severe depression There is no problem list on file for this patient. No past medical history on file. No past surgical history on file. Social History Tobacco Use - Smoking status: Not on file Substance Use Topics - Alcohol use: Not on file - Drug use: Not on file No family history on file. ALLERGIES Not on File CURRENT MEDICATIONS: lisinopril (ZESTRIL, PRINIVIL) 10 mg tablet Take 10 mg by mouth once daily. FUROSEMIDE ORAL Take by mouth. diazePAM (VALIUM) 5 mg tablet Take 5 mg by mouth every 6 hours as needed. methylPREDNISolone (MEDROL DOSE-PACK) 4 mg Dose-Pack Take by mouth as directed per package. REVIEW OF SYSTEMS: PAIN ASSESSMENT: See HPI. GENERAL: Denies fever, chills malaise and weight loss. HEENT: No recent change in vision or hearing. CARDIOVASCULAR: Denies chest pain, history of A-fib, valvular disease, or pacemaker/ICD. RESPIRATORY: Denies SOB, sputum production, and hemoptysis. GI: Denies GI ulcers, inflammatory disease, or liver disease. : Denies change in frequency or urgency, kidney disease, and burning with urination. MUSCULOSKELETAL: Positive for See HPI SKIN: Denies rash or itching. PSYCHOLOGICAL: Denies uncontrolled depression or anxiety. NEURO: Denies CVA, seizures, headaches. ENDOCRINE: Denies diabetes, thyroid disease. HEMATOLOGY/LYMPHOLOGY: Denies cancer, bleeding or clotting disorders, anemia,and DVT's. ALLERGIC/IMMUNOLOGICAL: Denies risks for infection, or recent MRSA infections. OBJECTIVE: PHYSICAL EXAM BP 148/60 Pulse 71 Temp 36.6 ?C (97.9 ?F) Ht 160 cm (5' 3 ) Wt 68 kg (150 lb) SpO2 92% BMI 26.57 kg/m? GENERAL APPEARANCE: Well appearing, well-hydrated, well nourished and alert SKIN: Head, neck, trunk, and extremities dry, intact and without lesions. Bilateral feet discoloration poor perfusion LUNGS: even and non-labored breathing, normal chest excursion NEURO/PSYCH: o (more content not included)... [facility] XR HIP 3V PELV+ AP/LAT RTon 09-29-2020 XR HIP 3V PELV+ AP/LAT RT * * *Final Report* * * DATE OF EXAM: Sep 29 2020 9:46AM [facility] [id number] - XR HIP 3V PELV+ AP/LAT RT / PROCEDURE REASON: multiple diagnoses * * * * Physician Interpretation * * * * TECHNIQUE: AP pelvis and 2 coned-down views of the right hip CLINICAL DATA: No additional. COMPARISON: None. RESULT: There is no acute fracture or dislocation. The joint spaces mild arthritic changes involving both hip joints. The visualized sacroiliac joints are within normal limits. IMPRESSION: No acute osseous abnormalities identified. Entry Level Accounting Clerk: [facility] Transcribe Date/Time: Sep 29 2020 10:18A Dictated by : CUONG DWYER MD This examination was interpreted and the report reviewed and electronically signed by: CUONG DWYER MD on Sep 29 2020 10:18AM EST [id number] [facility] XR LUMBAR 4V AP/LAT/ FLEX/EX Ton 09-29-2020 XR LUMBAR 4V AP/LAT/ FLEX/EXT * * *Final Report* * * DATE OF EXAM: Sep 29 2020 9:46AM [id number] - XR LUMBAR 4V AP/LAT/ FLEX/EXT / PROCEDURE REASON: multiple diagnoses * * * * Physician Interpretation * * * * LUMBAR SPINE RADIOGRAPHS HISTORY: Lumbar spondylosis Spondylolisthesis of lumbar region Spinal stenosis, lumbar region with neurogenic claudication TECHNIQUE: 3 views of the lumbar spine are submitted. COMPARISON: No available comparisons. RESULT: Counting reference: Lumbosacral junction. For the purposes of this report, L4-5 is considered the level of the iliac crest and there are 5 lumbar-type vertebrae. Grade 1 anterolisthesis L3-L4. No change in alignment on flexion-extension views. Vertebral body heights are maintained. Disc space during throughout the lumbar spine most pronounced at L5-S1. Lower lumbar facet arthropathy. Mild dextroscoliosis. IMPRESSION: Lumbar spondylosis. Entry Level Accounting Clerk: ANNA Transcribe Date/Time: Sep 29 2020 4:23P Dictated by : XIOMARA DOYLE MD This examination was interpreted and the report reviewed and electronically signed by: XIOMARA DOYLE MD on Sep 29 2020 4:24PM EST [id number] [facility] MR-MRI L-SPINE WO CON IMPORT on 09-14-2020 MR-MRI L-SPINE WO CON IMPORT Images were obtained outside of [facility] [id number] [facility] Vital Signs Date Time Vital Sign Value Performing Clinician Facility 08-22-2024 10:08-0400 Body height 154.94 cm KaritKarma DO Work Phone: [place] [facility]-22-[facility]24 10:08-0400 Body mass index (BMI) [Ratio] 27.8 kg/m2 KaritKarma DO Work Phone: [facility] 08-22-2024 10:08-0400 Body weight 66.9 kg KaritKarma DO Work Phone: [facility] 08-22-2024 10:08-0400 Diastolic blood pressure 72 mm[Hg] KaritKarma DO Work Phone: [facility] 08-22-2024 10:08-0400 Heart rate 63 /min Blue Ball DO Work Phone: [facility] 08-22-2024 10:08-0400 Respiratory rate 12 /min Blue Ball DO Work Phone: [facility] 08-22-2024 10:08-0400 Systolic blood pressure 134 mm[Hg] Blue Ball DO Work Phone: [facility] 02-22-2024 10:07-0400 Body height 154.94 cm [facility] 02-22-2024 10:07-0400 Body mass index (BMI) [Ratio] 27.1 kg/m2 [facility] 02-22-2024 10:07-0400 Body weight 65.03 kg [facility] 02-22-2024 10:07-0400 Diastolic blood pressure 72 mm[Hg] [facility] 02-22-2024 10:07-0400 Heart rate 67 /min [facility] 02-22-2024 10:07-0400 Respiratory rate 12 /min [facility] 02-22-2024 10:07-0400 Systolic blood pressure 135 mm[Hg] [facility] 01-15-2024 13:58-0400 Body height 154.94 cm DO Blue Ball Work Phone: [facility] 01-15-2024 13:58-0400 Body mass index (BMI) [Ratio] 27.1 kg/m2 DO Blue Ball Work Phone: [facility] 01-15-2024 13:58-0400 Body weight 65.03 kg DO Blue Ball Work Phone: [facility] 01-15-2024 13:58-0400 Diastolic blood pressure 82 mm[Hg] DO Blue Ball Work Phone: [facility] 01-15-2024 13:58-0400 Heart rate 71 /min DO Blue Ball Work Phone: [facility] 01-15-2024 13:58-0400 Respiratory rate 12 /min DO Blue Ball Work Phone: [facility] 01-15-2024 13:58-0400 Systolic blood pressure 164 mm[Hg] DO Blue Ball Work Phone: [facility] 12-05-2023 10:36-0400 Body height 154.94 cm DO Blue Ball Work Phone: [facility] 12-05-2023 10:36-0400 Body mass index (BMI) [Ratio] 25.7 kg/m2 DO Blue Ball Work Phone: [facility] 12-05-2023 10:36-0400 Body weight 61.77 kg DO Blue Ball Work Phone: [facility] 12-05-2023 10:36-0400 Diastolic blood pressure 74 mm[Hg] DO Blue Ball Work Phone: [facility] 12-05-2023 10:36-0400 Heart rate 76 /min DO Blue Ball Work Phone: [facility] 12-05-2023 10:36-0400 Respiratory rate 12 /min DO Blue Ball Work Phone: [facility] 12-05-2023 10:36-0400 Systolic blood pressure 146 mm[Hg] DO Blue Ball Work Phone: [facility] 12-05-2023 10:36-0400 Systolic blood pressure 139 mm[Hg] DO Blue Ball Work Phone: [facility] 11-28-2023 08:59-0400 Body height 160 cm Je Ruiz MD Work Phone: [facility] 11-28-2023 08:59-0400 Body mass index (BMI) [Ratio] 25.15 kg/m2 Je Ruiz MD Work Phone: [facility] 11-28-2023 08:59-0400 Body weight 64.41 kg Je Ruiz MD Work Phone: [facility] 11-28-2023 08:59-0400 Diastolic blood pressure 62 mm[Hg] Je Ruiz MD Work Phone: [facility] 11-28-2023 08:59-0400 Heart rate 68 /min Je Ruiz MD Work Phone: [facility] 11-28-2023 08:59-0400 Systolic blood pressure 120 mm[Hg] Je Ruiz MD Work Phone: [facility] 11-15-2023 13:59-0400 Body height 154.94 cm DO Blue Ball Work Phone: [facility] 11-15-2023 13:59-0400 Body mass index (BMI) [Ratio] 25.7 kg/m2 DO Blue Ball Work Phone: [facility] 11-15-2023 13:59-0400 Body weight 61.68 kg DO Blue Ball Work Phone: [facility] 11-15-2023 13:59-0400 Diastolic blood pressure 70 mm[Hg] DO Blue Ball Work Phone: [facility] 11-15-2023 13:59-0400 Heart rate 70 /min DO Blue Ball Work Phone: [facility] 11-15-2023 13:59-0400 Respiratory rate 12 /min DO Blue Ball Work Phone: [facility] 11-15-2023 13:59-0400 Systolic blood pressure 134 mm[Hg] DO Blue Ball Work Phone: [facility] 08-22-2023 10:21-0400 Body height 154.94 cm DO Blue Ball Work Phone: [facility] 08-22-2023 10:21-0400 Body mass index (BMI) [Ratio] 25.7 kg/m2 DO Blue Ball Work Phone: [facility] 08-22-2023 10:21-0400 Body weight 61.85 kg DO Blue Ball Work Phone: [facility] 08-22-2023 10:21-0400 Diastolic blood pressure 70 mm[Hg] DO Blue Ball Work Phone: [facility] 08-22-2023 10:21-0400 Heart rate 65 /min DO Blue Ball Work Phone: [facility] 08-22-2023 10:21-0400 Respiratory rate 12 /min DO Blue Ball Work Phone: [facility] 08-22-2023 10:21-0400 Systolic blood pressure 130 mm[Hg] DO Blue Ball Work Phone: [facility] 05-01-2023 08:38-0500 Diastolic blood pressure 82 mm[Hg] Shanna Caldera GEOLOGICAL AIDE-REPATCHER Work Phone: [facility] 05-01-2023 08:38-0500 Systolic blood pressure 168 mm[Hg] Shanna Caldera GEOLOGICAL AIDE-REPATCHER Work Phone: [facility] 05-01-2023 08:27-0500 Body height 160 cm Shanna Caldera GEOLOGICAL AIDE-REPATCHER Work Phone: [facility] 05-01-2023 08:27-0500 Body mass index (BMI) [Ratio] 24.45 kg/m2 Shanna Caldera GEOLOGICAL AIDE-REPATCHER Work Phone: [facility] 05-01-2023 08:27-0500 Body weight 62.6 kg Shanna Caldera GEOLOGICAL AIDE-REPATCHER Work Phone: [facility] 05-01-2023 08:27-0500 Heart rate 62 /min Shanna Caldera GEOLOGICAL AIDE-REPATCHER Work Phone: [facility] 03-21-2023 09:30-0400 Body height 154.94 cm Blue Ball Other [facility] [employer] Other 03-21-2023 09:30-0400 Body mass index (BMI) [Ratio] 25.77 kg/m2 Blue Ball Other [employer] Other 03-21-2023 09:30-0400 Body weight 61.87 kg Blue Ball Other [employer] Other 03-21-2023 09:30-0400 Diastolic blood pressure 82 mm[Hg] Blue Ball Other [employer] Other 03-21-2023 09:30-0400 Respiratory rate 12 /min Blue Ball Other [employer] Other 03-21-2023 09:30-0400 Systolic blood pressure 153 mm[Hg] Blue Ball Other [employer] Other 12-15-2022 09:30-0400 Body height 154.94 cm Blue Ball Other [employer] Other 12-15-2022 09:30-0400 Body mass index (BMI) [Ratio] 26.6 kg/m2 Blue Ball Other [employer] Other 12-15-2022 09:30-0400 Body weight 63.87 kg Blue Ball Other [employer] Other 12-15-2022 09:30-0400 Diastolic blood pressure 71 mm[Hg] Blue Ball Other [employer] Other 12-15-2022 09:30-0400 Respiratory rate 12 /min Blue Ball Other [employer] Other 12-15-2022 09:30-0400 Systolic blood pressure 129 mm[Hg] Blue Ball Other [employer] Other 11-07-2022 10:45-0400 Body height 160.02 cm Blue E Ball Work Phone: [facility] 250 DO Work Phone: 11-07-2022 10:45-0400 Body mass index (BMI) [Ratio] 25.15 kg/m2 Blue E Ball Work Phone: [facility] [employer] 250 DO Work Phone: 11-07-2022 10:45-0400 Body surface area Derived from formula 1.67 m2 Blue E Ball Work Phone: [facility] [employer] 250 DO Work Phone: 11-07-2022 10:45-0400 Body weight 64.41 kg Blue E Ball Work Phone: [facility] [employer] 250 DO Work Phone: 11-07-2022 10:45-0400 Diastolic blood pressure 80 mm[Hg] Blue E Ball Work Phone: [facility] [employer] 250 DO Work Phone: 11-07-2022 10:45-0400 Heart rate 64 /min Blue E Ball Work Phone: [facility] [employer] 250 DO Work Phone: 11-07-2022 10:45-0400 Systolic blood pressure 146 mm[Hg] Blue E Ball Work Phone: [facility] [employer] 250 DO Work Phone: 09-15-2022 11:00-0400 Body height 154.94 cm Blue Ball Other [employer] [facility] [employer] Other 09-15-2022 11:00-0400 Body mass index (BMI) [Ratio] 27.28 kg/m2 Blue Ball Other [employer] Other 09-15-2022 11:00-0400 Body weight 65.5 kg Blue Ball Other [employer] Other 09-15-2022 11:00-0400 Diastolic blood pressure 83 mm[Hg] Blue Ball Other [employer] Other 09-15-2022 11:00-0400 Respiratory rate 12 /min Blue Ball Other [employer] Other 09-15-2022 11:00-0400 Systolic blood pressure 156 mm[Hg] Blue Ball Other [employer] Other 08-26-2022 16:00-0400 Body height 154.94 cm Blue Ball Other [employer] Other 08-26-2022 16:00-0400 Body mass index (BMI) [Ratio] 27.28 kg/m2 Blue Ball Other [employer] Other 08-26-2022 16:00-0400 Body weight 65.5 kg Blue Ball Other [employer] Other 08-26-2022 16:00-0400 Diastolic blood pressure 92 mm[Hg] Blue Ball Other [employer] Other 08-26-2022 16:00-0400 Respiratory rate 12 /min Blue Ball Other [employer] Other 08-26-2022 16:00-0400 Systolic blood pressure 198 mm[Hg] Blue Ball Other [employer] Other 08-24-2022 10:00-0400 Body height 154.94 cm Blue Ball Other [employer] Other 08-24-2022 10:00-0400 Body mass index (BMI) [Ratio] 26.87 kg/m2 Blue Ball Other [employer] Other 08-24-2022 10:00-0400 Body weight 64.5 kg Blue Ball Other [facility] [employer] Other 08-24-2022 10:00-0400 Diastolic blood pressure 84 mm[Hg] Blue Ball Other [facility] [employer] Other 08-24-2022 10:00-0400 Respiratory rate 12 /min Blue Ball Other [facility] [employer] Other 08-24-2022 10:00-0400 Systolic blood pressure 169 mm[Hg] Blue Ball Other [facility] [employer] Other 08-22-2022 11:38-0400 Body height 160.02 cm Blue E Ball Work Phone: [facility] 250 DO Work Phone: 08-22-2022 11:38-0400 Body mass index (BMI) [Ratio] 24.8 kg/m2 Blue E Ball Work Phone: [facility] 250 DO Work Phone: 08-22-2022 11:38-0400 Body surface area Derived from formula 1.66 m2 Blue E Ball Work Phone: [facility] 250 DO Work Phone: 08-22-2022 11:38-0400 Body weight 63.5 kg Blue E Ball Work Phone: [facility] 250 DO Work Phone: 08-22-2022 11:38-0400 Diastolic blood pressure 78 mm[Hg] Blue E Ball Work Phone: [facility] 250 DO Work Phone: 08-22-2022 11:38-0400 Heart rate 74 /min Blue E Ball Work Phone: [facility] 250 DO Work Phone: 08-22-2022 11:38-0400 Systolic blood pressure 176 mm[Hg] Blue E Ball Work Phone: [facility] 250 DO Work Phone: 08-16-2022 10:30-0400 Body height 154.94 cm Blue Ball Other [facility] [employer] Other 08-16-2022 10:30-0400 Body mass index (BMI) [Ratio] 26.98 kg/m2 Blue Ball Other [facility] [employer] Other 08-16-2022 10:30-0400 Body weight 64.77 kg Blue Ball Other [facility] [employer] Other 08-16-2022 10:30-0400 Diastolic blood pressure 73 mm[Hg] Blue Ball Other [facility] [employer] Other 08-16-2022 10:30-0400 Respiratory rate 12 /min Blue Ball Other [facility] [employer] Other 08-16-2022 10:30-0400 Systolic blood pressure 189 mm[Hg] Blue Ball Other [facility] [employer] Other 07-18-2022 12:30-0500 Body height 154.94 cm Blue Ball Other [facility] [employer] Other 07-18-2022 12:30-0500 Body mass index (BMI) [Ratio] 27.21 kg/m2 Blue Ball Other [facility] [employer] Other 07-18-2022 12:30-0500 Body weight 65.32 kg Blue Ball Other [employer] Other 07-18-2022 12:30-0500 Diastolic blood pressure 80 mm[Hg] Blue Ball Other [facility] [employer] Other 07-18-2022 12:30-0500 Respiratory rate 12 /min Blue Ball Other [facility] [employer] Other 07-18-2022 12:30-0500 Systolic blood pressure 122 mm[Hg] Blue Ball Other [facility] [employer] Other 05-13-2022 15:59-0500 Body temperature 98.3 [degF] Blue E Ball Work Phone: [facility] 250 DO Work Phone: 05-13-2022 15:59-0500 Body weight 64.41 kg Blue E Ball Work Phone: [facility] 250 DO Work Phone: 05-13-2022 15:59-0500 Diastolic blood pressure 82 mm[Hg] Blue E Ball Work Phone: [facility] 250 DO Work Phone: 05-13-2022 15:59-0500 Heart rate 62 /min Blue E Ball Work Phone: [facility] 250 DO Work Phone: 05-13-2022 15:59-0500 Systolic blood pressure 124 mm[Hg] Blue E Ball Work Phone: [facility] 250 DO Work Phone: 05-13-2022 08:05-0500 Body temperature 98 [degF] DO Blue Ball Work Phone: [facility] 05-13-2022 08:05-0500 Diastolic blood pressure 71 mm[Hg] DO Blue Ball Work Phone: [facility] 05-13-2022 08:05-0500 Heart rate 76 /min DO Blue Ball Work Phone: [facility] 05-13-2022 08:05-0500 Respiratory rate 12 /min DO Blue Ball Work Phone: [facility] 05-13-2022 08:05-0500 SaO2% (BldA) [Mass fraction] 95 % DO Blue Ball Work Phone: [facility] 05-13-2022 08:05-0500 Systolic blood pressure 110 mm[Hg] DO Blue Ball Work Phone: [facility] 05-13-2022 06:16-0500 Body weight 68 kg DO Blue Ball Work Phone: [facility] 05-13-2022 04:13-0500 Inhaled oxygen flow rate 2 L/min DO Blue Ball Work Phone: [facility] 05-12-2022 13:08-0500 Inhaled oxygen flow rate 2 L/min DO Blue Ball Work Phone: [facility] 05-12-2022 13:04-0500 Diastolic blood pressure 60 mm[Hg] DO Blue Ball Work Phone: [facility] 05-12-2022 13:04-0500 Heart rate 80 /min DO Blue Ball Work Phone: [facility] 05-12-2022 13:04-0500 Respiratory rate 18 /min DO Blue Ball Work Phone: [facility] 05-12-2022 13:04-0500 SaO2% (BldA) [Mass fraction] 96 % DO Blue Ball Work Phone: [facility] 05-12-2022 13:04-0500 Systolic blood pressure 136 mm[Hg] DO Blue Ball Work Phone: [facility] 05-12-2022 06:36-0500 Body height 157.48 cm DO Blue Ball Work Phone: [facility] 05-12-2022 06:36-0500 Body temperature 96.8 [degF] DO Blue Ball Work Phone: [facility] 05-12-2022 06:36-0500 Body weight 68 kg DO Blue Ball Work Phone: [facility] 05-09-2022 12:00-0500 Body temperature 98 [degF] DO Blue Ball Work Phone: [facility] 05-09-2022 12:00-0500 Diastolic blood pressure 74 mm[Hg] DO Blue Ball Work Phone: [facility] 05-09-2022 12:00-0500 Heart rate 84 /min DO Blue Ball Work Phone: [facility] 05-09-2022 12:00-0500 Inhaled oxygen flow rate 2 L/min DO Blue Ball Work Phone: [facility] 05-09-2022 12:00-0500 Respiratory rate 18 /min DO Blue Ball Work Phone: [facility] 05-09-2022 12:00-0500 SaO2% (BldA) [Mass fraction] 95 % DO Blue Ball Work Phone: [facility] 05-09-2022 12:00-0500 Systolic blood pressure 127 mm[Hg] DO Blue Ball Work Phone: [facility] 05-09-2022 05:23-0500 Body weight 68.9 kg DO Blue Ball Work Phone: [facility] 05-08-2022 13:23-0500 Body height 160.02 cm DO Blue Ball Work Phone: [facility] 05-07-2022 15:53-0500 40 1 Je Ruiz MD Work Phone: [place] [address] DO Work Phone: Comment on above: [id number] 05-06-2022 16:35-0500 Body mass index (BMI) [Ratio] 30.2 kg/m2 DO Blue Ball Work Phone: [facility] Encounters Encounter Date Encounter Type Care Provider Facility Start: 08-22-2024 End: 08-22-2024 ambulatory Blue Ball DO Work Phone: [facility] Work Phone: Start: 08-22-2024 End: 08-22-2024 Patient encounter procedure Blue Ball DO Work Phone: [facility] Work Phone: Start: 07-22-2024 End: 07-22-2024 Patient encounter procedure Blue Ball DO Work Phone: [facility] Start: 07-22-2024 End: 07-22-2024 ambulatory Blue Ball DO Work Phone: [facility] Work Phone: Start: 07-22-2024 Non-patient / Non-visit Benjam in Ball DO Work Phone: [facility] Start: 04-22-2024 End: 04-22-2024 ambulatory Blue Ball Facility:[facility] Start: 04-22-2024 Non-patient / Non-visit [facility] Start: 02-22-2024 End: 02-22-2024 ambulatory [facility] Work Phone: Start: 02-22-2024 End: 02-22-2024 Patient encounter procedure [facility]ician [facility] Work Phone: Start: 01-22-2024 End: 01-22-2024 Patient encounter procedure DO Blue Ball Work Phone: [facility] Start: 01-22-2024 End: 01-22-2024 ambulatory DO Blue Ball Work Phone: [facility] Work Phone: Start: 01-22-2024 Non-patient / Non-visit [facility] Start: 01-15-2024 End: 01-15-2024 ambulatory DO Blue Ball Work Phone: [facility] Work Phone: Start: 01-15-2024 End: 01-15-2024 Patient encounter procedure DO Blue Ball Work Phone: [facility] Work Phone: Start: 12-05-2023 End: 12-05-2023 ambulatory DO Blue Ball Work Phone: [facility] Work Phone: Start: 12-05-2023 End: 12-05-2023 Patient encounter procedure DO Blue Ball Work Phone: [facility] Work Phone: Start: 11-28-2023 End: 11-28-2023 Office outpatient visit 25 minutes Je Ruiz MD Work Phone: [facility] Comment on above: Mixed hyperlipidemia (Primary Dx); Essential hypertension, benign; Cardiac pacemaker; BMI 25.0-25.9,adult Start: 11-28-2023 End: 11-28-2023 ambulatory JE RUIZ [facility] Start: 11-15-2023 End: 11-15-2023 ambulatory DO Blue Ball Work Phone: [facility] Work Phone: Start: 11-15-2023 End: 11-15-2023 Patient encounter procedure DO Blue Ball Work Phone: [facility] Physician [facility] Work Phone: Start: 10-23-2023 End: 10-23-2023 Patient encounter procedure DO Blue Ball Work Phone: [facility] Start: 10-23-2023 End: 10-23-2023 ambulatory DO Blue Ball Work Phone: [facility] Work Phone: Start: 08-25-2023 Non-patient / Non-visit DO Donny de la cruzin Ball Work Phone: [facility] Work Phone: Start: 08-22-2023 End: 08-22-2023 ambulatory DO Blue Navarro Work Phone: [facility] Work Phone: Start: 08-22-2023 End: 08-22-2023 Patient encounter procedure DO Blue Navarro Work Phone: [facility] Work Phone: Start: 07-21-2023 End: 07-21-2023 ambulatory DO Blue Navarro Work Phone: [facility] Work Phone: Start: 07-21-2023 End: 07-21-2023 Patient encounter procedure DO Blue Navarro Work Phone: [facility] Start: 07-03-2023 End: 07-03-2023 ambulatory Blue Navarro Other [employer] Other Start: 07-03-2023 Telephone encounter Blue LOPEZ [facility] Start: 06-30-2023 End: 06-30-2023 ambulatory Blue Navarro Other [employer] Other Start: 06-30-2023 Telephone encounter Blue LOPEZ G [facility] Start: 05-17-2023 End: 05-17-2023 ambulatory [facility] Ambulatory Start: 05-01-2023 End: 05-01-2023 Office outpatient visit 15 minutes [facility] GEOLOGICAL AIDE-REPATCHER Work Phone: [facility] Comment on above: Essential hypertensi on, benign (Primary Dx); Mild CAD; Mixed hyperlipidemia; Stress-induced cardiomyopathy; Cardiac pacemaker; BMI 24.0-24.9, adult Start: 05-01-2023 End: 05-01-2023 ambulatory [facility] Start: 04-21-2023 End: 04-21-2023 ambulatory DO Blue Navarro Work Phone: [facility] Work Phone: Start: 04-21-2023 End: 04-21-2023 Patient encounter procedure DO Blue Navarro Work Phone: [facility] Start: 03-29-2023 End: 03-29-2023 ambulatory Blue Navarro Other [employer] Other Start: 03-29-2023 Telephone encounter Blue Navarro JOHN [facility] Start: 03-21-2023 End: 03-21-2023 ambulatory Blue Navarro Other [employer] Other Start: 03-21-2023 Office outpatient vi sit 25 minutes Blue Navarro [facility] Start: 01-20-2023 Telephone encounter Blue LOPEZ G [facility] Start: 01-20-2023 End: 01-20-[address] Blue Navarro [facility] [employer] Other Start: 12-19-2022 End: 12-19-2022 ambulatory Blue Navarro Other [employer] Other Start: 12-19-2022 Telephone encounter Blue LOPEZ [facility] Start: 12-15-2022 End: 12-15-2022 ambulatory Blue Navarro Other [employer] Other Start: 12-15-2022 Office outpatient vi sit 25 minutes Blue Navarro [facility] Start: 11-07-2022 Office outpatient vi sit 15 minutes [facility] Work Phone: Start: 11-07-[address] Blue Navarro Facility: Start: 10-18-[address] Blue Navarro Facility:[id number] Start: 10-13-2022 Chart Update [facility]oyd [facility] Work Phone: Start: 09-26-2022 End: 09-26-2022 ambulatory Imad Asaad Other [employer] Other Start: 09-26-2022 Telephone encounter Kristina [facility] Start: 09-15-2022 End: 09-15-2022 ambulatory Blue Navarro Other [employer] Other Start: 09-15-2022 Office outpatient vi sit 15 minutes Blue Navarro [facility] Start: 09-05-2022 End: 09-05-2022 ambulatory Blue Navarro Other [employer] Other Start: 09-05-2022 Telephone encounter Blue Navarro [facility] Start: 08-31-2022 End: 08-31-2022 ambulatory Blue Navarro Other [employer] Other Start: 08-31-2022 Telephone encounter Blue Navarro [facility] Start: 08-31-2022 Rx Renewal Blue floyd Work Phone: [facility] 250 DO Work Phone: Start: 08-29-2022 Chart Update Blue floyd Work Phone: [facility] 250 DO Work Phone: Start: 08-29-2022 Telephone encounter Blue Navarro G [facility] Start: 08-29-2022 End: 08-29-2022 ambulatory DO Blue Melanie Work Phone: [facility] Work Phone: Start: 08-29-2022 End: 08-29-2022 Patient encounter procedure DO Blue Melanie Work Phone: [facility] [place] Work Phone: Start: 08-26-2022 End: 08-26-[address] BLUE NAVARRO [facility] [employer] Other Start: 08-26-2022 Office outpatient vi sit [address] [facility] Start: 08-24-2022 End: 08-24-2022 ambulatory Blue Navarro Other [employer] Other Start: 08-24-2022 Patient encounter procedure Blue Navarro [facility] Start: 08-22-2022 Office outpatient vi sit 25 minutes Blue Navarro Work Phone: [facility] 250 DO Work Phone: Start: 08-22-2022 Patient encounter procedure Blue Navarro Work Phone: [facility] 250 DO Work Phone: Start: 08-22-[address] Blue Navarro Facility: Start: 08-16-2022 End: 08-16-2022 ambulatory Blue Navarro Other [employer] Other Start: 08-16-2022 Office outpatient vi sit [address] [facility] Start: 08-11-2022 End: 08-11-2022 ambulatory Blue Navarro Other [employer] Other Start: 08-11-2022 Telephone encounter Blue Navarro [facility] Start: 07-19-[address] Blue Navarro Facility:[id number] Start: 07-19-2022 End: 07-19-2022 ambulatory DO Blue Navarro Work Phone: [facility] Work Phone: Start: 07-19-2022 End: 07-19-2022 Patient encounter procedure DO Blue Navarro Work Phone: [facility]-Pac[facility] Check Start: 07-18-2022 End: 07-18-2022 ambulatory Blue Navarro Other [employer] Other Start: 07-18-2022 Office outpatient vi sit 15 minutes Blue Navarro [facility] Start: 07-11-2022 End: 07-11-2022 ambulatory Blue Navarro Other [employer] Other Start: 07-11-2022 Telephone encounter Blue Navarro [facility] Start: 06-01-2022 Rx Renewal Blue floyd Work Phone: [facility] 250 DO Work Phone: Start: 05-31-2022 Rx Renewal Blue floyd Work Phone: [facility] 600 DO Work Phone: Start: 05-13-[address] Je carmona [facility] Facility: Start: 05-13-2022 Postop follow up vis it related to original px Blue Navarro Work Phone: [facility] 250 DO Work Phone: Start: 05-12-2022 End: 05-13-2022 Evaluation and management of inpatient DO Blue Navarro Work Phone: [facility] [place] [facility] Start: 05-08-[address] Je Daley Facility:[id number] Start: 05-07-[address] eJ Daley Facility:[id number] Start: 05-06-[address] Je Daley Facility:[id number] Start: 05-06-2022 Telephone encounter Je Castro MD Work Phone: [facility] 250 DO Work Phone: Start: 05-06-[address] 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] Start: 01-07-2022 Orders Only Alo Lomeli MD Work Phone: Orthopaedics Comment on above: 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) Start: 07-27-2021 End: 07-27-2021 Subsequent hospital visit by physician Makayla Terry [employer] Work Phone: Radiology Comment on above: Pain [R52] Start: 05-12-2021 Adult health examination Cornel page [employer] Other [employer] Other Start: 04-27-2021 End: 04-27-2021 Subsequent hospital visit by physician Makayla KeenMars [employer] Work Phone: Radiology Comment on above: Status post revision of total hip replacement [Z96.649] Start: 12-08-2020 End: 12-08-2020 Discharged Recurring DO KaritKarma Work Phone: [facility]Physical Therapy [facility] Procedures Date Procedure Procedure Detail Performing Clinician Start: 05-17-2023 FOLLOW UP IN CARDIOLOGY SHANNA CALDERA Start: 10-11-2022 Echocardiography Mario in E [employer] Work Phone: Start: 08-29-2022 Plain chest X-ray DO Be njamin [employer] Work Phone: Start: 05-12-2022 SARS-CoV-2, Influenz a & RSV (PCR) DO Blue [employer] Work Phone: Start: 05-12-2022 Plain chest X-ray DO Be njamin Ball Work Phone: Start: 05-07-2022 Plain chest X-ray DO Be njamin Ball Work Phone: Start: 05-06-2022 Plain chest X-ray DO Be njamin [employer] Work Phone: Start: 05-06-2022 Implantation of card iac pacemaker DO Blue [employer] Work Phone: Start: 05-06-2022 Plain chest X-ray DO Be njamin Melanie Work Phone: Start: 05-06-[address] acement 0 DO Blue Navarro Work Phone: Start: 05-06-2022 CL Insert Temp Pacer DO Blue Navarro Work Phone: Start: 05-06-2022 CL LHC & COR Angio (Right) DO Blue Navarro Work Phone: Start: 05-06-2022 CL Transcutaneous Pa cing (Right) DO Blue Navarro Work Phone: Start: 01-11-2022 Radex hip unilateral with pelvis 2-3 views Rodrigue Zabala PA-C Work Phone: Start: 07-27-2021 Radex hip unilateral with pelvis 2-3 views Alo Lomeli MD Work Phone: Start: 04-27-2021 Radex hip unilateral with pelvis 2-3 views Alo Lomeli MD Work Phone: Start: 01-20-2021 Antibody screen Comment on above: Performed By: #### T [id number] #### [place] [address] Start: 01-24-2017 Screening for osteoporosis Blue Navarro Other Start: 01-24-2017 Screening mammography B enjamin Melanie Other Start: 03-28-2013 General examination of patient Blue Navarro Other Appendectomy Blue E Melanie Work Phone: Cataract surgery Blue E Ball Work Phone: Colonoscopy Blue E Ball Work Phone: Depression screening Benjami n Melanie Other Excision of neoplasm Benjami n E Ball Work Phone: Excision of thymus Blue E Melanie Work Phone: Screening for malign ant neoplasm of breast Blue Navarro Other Total replacement of hip Donny ferguson E Melanie Work Phone: Plan of Treatment Date Care Activity Detail Author Start: 12-02-2024 End: 12-02-2024 Patient encounter procedure 12/02/2024 9:30 AM EDT Office Visit [facility] [address] [facility] [address] [place] [address] Beau Dillard MD [address] [facility] [address] [place] [address] [facility] Start: 02-12-2024 DIABETES SCREEN DIABETES SCREEN [facility] Start: 02-12-2024 Diabetes Screening Diabetes Screening [facility] Start: 02-04-2024 Covid-19 Vaccine () Covid-19 Vaccine () [facility] Start: 02-04-2024 Influenza vaccination Influ[facility] Start: 12-05-2023 Patient referral [facility] Work Phone: Start: 10-12-2023 Echocardiography Echocardiogram [facility] Start: 06-05-2023 Advance Directive Discussion Advance Directive Discussion [facility] Start: 05-16-2023 End: 05-16-2023 Patient encounter procedure 05/16/2023 2:30 PM EST Office Visit [address] [place] [id number] Shanna Caldera, GEOLOGICAL AIDE-REPATCHER [address] [facility] [address] [place] [address] [facility] Start: 05-01-2023 End: 05-01-2024 Alanine aminotransferase [Enzymatic activity/volume] in Serum or Plasma by With P-5'-P Alanine Aminotransferase Lab Routine Mild CAD Mixed hyperlipidemia Expected: 05/01/2023 (Approximate), Expires: 05/01/2024 [facility] Service Area Work Phone: Comment on above: Expected: 05/01/2023 (Approximate), Expi res: 05/01/2024 Start: 05-01-2023 End: 05-01-2024 Aspartate aminotransferase [Enzymatic activity/volume] in Serum or Plasma by With P-5'-P Aspartate Aminotransferase Lab Routine Mild CAD Mixed hyperlipidemia Expected: 05/01/2023 (Approximate), Expires: 05/01/2024 [facility] Work Phone: Comment on above: Expected: 05/01/2023 (Approximate), Expi res: 05/01/2024 Start: 05-01-2023 End: 05-01-2024 Basic metabolic 2000 panel - Serum or Plasma Basic Metabolic Panel Lab Routine Essential hypertension, benign Expected: 05/01/2023 (Approximate), Expires: 05/01/2024 [facility] Work Phone: Comment on above: Expected: 05/01/2023 (Approximate), Expi res: 05/01/2024 Start: 05-01-2023 End: 05-01-2024 Lipid 1996 panel - Serum or Plasma Lipid Panel Lab Routine Mild CAD Mixed hyperlipidemia Expected: 05/01/2023 (Approximate), Expires: 05/01/2024 [facility] Work Phone: Comment on above: Expected: 05/01/2023 (Approximate), Expi res: 05/01/2024 Start: 02-03-2023 COVID-19 Vaccine ( season) COVID-19 Vaccine ( season) [facility] Start: 02-03-2023 Influenza vaccination Influenza Vaccine (#1) [facility] Start: 11-07-2022 FUV, Provider: Shanna Valentin, Status: Pen, Time: 10:30 AM FUV, Provider: Shanna Valentin, Status: Pen, Time: 10:30 AM -[facility] 250 DO Work Phone: Start: 10-11-2022 ECHO, Provider: VIRGIL DENGI ULTRASOUND ,[id number], Status: Pen, Time: 9:45 AM ECHO, Provider: VIRGIL DENGI ULTRASOUND ,[id number], Status: Pen, Time: 9:45 AM -[facility] 250 DO Work Phone: Start: 08-22-2022 FUV, Provider: Shanna Valentin, Status: Pen, Time: 11:30 AM FUV, Provider: Shanna Valentin, Status: Pen, Time: 11:30 AM [facility] 250 DO Work Phone: Start: 05-13-2022 WOUNDREBECA, Provider: BEE DO CRUSHER FEEDER 1,[id number], Status: Pen, Time: 1:00 PM WOUNDNORTH POWDER, Provider: BEE DO CRUSHER FEEDER 1,[id number], Status: Pen, Time: 1:00 PM [facility] 250 DO Work Phone: Start: 05-13-2022 [facility] Start: 05-12-2022 Hospital admission [facility] Start: 05-09-2022 [facility] Start: 05-06-2022 [facility] Start: 05-06-2022 Referral to cardiac rehabilitation program [facility] Start: 05-06-2022 [facility] Start: 05-05-2022 Hospital admission [facility] Start: 05-05-2022 Fluoroscopy of Left Heart using Low Osmolar Contrast Fluoroscopy of Left Heart using Low Osmolar Contrast [facility] Start: 05-05-2022 Fluoroscopy of Multiple Coronary Arteries using Low Osmolar Contrast Fluoroscopy of Multiple Coronary Arteries using Low Osmolar Contrast [facility] Start: 05-05-2022 Insertion of Pacemaker Lead into Right Atrium, Percutaneous Approach Insertion of Pacemaker Lead into Right Atrium, Percutaneous Approach [facility] Start: 05-05-2022 Insertion of Pacemaker Lead into Right Ventricle, Percutaneous Approach Insertion of Pacemaker Lead into Right Ventricle, Percutaneous Approach [facility] Start: 05-05-2022 Insertion of Pacemaker, Dual Chamber into Chest Subcutaneous Tissue and Fascia, Open Approach Insertion of Pacemaker, Dual Chamber into Chest Subcutaneous Tissue and Fascia, Open Approach [facility] Start: 05-05-2022 Measurement of Cardiac Sampling and Pressure, Left Heart, Percutaneous Approach Measurement of Cardiac Sampling and Pressure, Left Heart, Percutaneous Approach [facility] Start: 05-05-2022 Performance of Cardiac Pacing, Continuous Performance of Cardiac Pacing, Continuous [facility] Start: 02-03-2022 Influenza vaccination INFLUENZA (#1) [facility] Start: 06-05-2021 ADVANCE DIRECTIVE DISCUSSION ADVANCE DIRECTIVE DISCUSSION [facility] Start: 12-19-2020 COVID-19 VACCINE (3 - Booster for Pfizer series) COVID-19 VACCINE (3 - Booster for Pfizer series) [facility] Start: 03-12-2015 Pneumococcal Vaccine: 65+ Years (2 of 2 - PPSV23 or PCV20) Pneumococcal Vaccine: 65+ Years (2 of 2 - PPSV23 or PCV20) [facility] Start: 03-29-2013 DTaP/Tdap/Td Vaccines (1 - Tdap) DTaP/Tdap/Td Vaccines (1 - Tdap) [facility] Start: 2013 RSV Vaccine (1 - 1-dose 75+ series) RSV Vaccine (1 - 1-dose 75+ series) [facility] Start: 2003 BONE DENSITY BONE DENSITY [facility] Start: 2003 Pneumococcal Vaccine: 65+ (1 of 1 - PCV) Pneumococcal Vaccine: 65+ (1 of 1 - PCV) [facility] Start: 2003 PNEUMOCOCCAL: 65+ (1 - PCV) PNEUMOCOCCAL: 65+ (1 - PCV) [facility] Start: 2003 Screening for osteoporosis Bone Density Screening [facility] Start: 1998 RSV patients and/or patients aged 60+ years (1 - 1-dose 60+ series) RSV patients and/or patients aged 60+ years (1 - 1-dose 60+ series) [facility] Start: 01-20-1988 SHINGRIX VACCINE (1 of 2) SHINGRIX VACCINE (1 of 2) [facility] Start: 01-20-1988 Zoster Vaccines (1 of 2) Zoster Vaccines (1 of 2) [facility] Start: 01-20-1960 DTaP/Tdap/Td Vaccines (1 - Tdap) DTaP/Tdap/Td Vaccines (1 - Tdap) [facility] Start: 1957 Urine microalbumin profile [facility] Start: 01-20-1956 Anxiety Screening Anxiety Screening [facility] Start: 01-20-1956 Depression Screening Depression Screening [facility] Start: 01-20-1956 Diabetes mellitus screening Diabetes Screening [facility] Start: 01-20-1944 Pneumococcal Vaccine: 65+ Years (1 - PCV) Pneumococcal Vaccine: 65+ Years (1 - PCV) [facility] Start: 1938 COVID-19 Vaccine (#1) COVID-19 Vaccine (#1) [facility] Start: 1938 Creatinine measurement Creatinine Level [facility] Start: 1938 Lipid panel Lipid Panel [facility] Start: 1938 Medicare Annual Wellness Visit Medicare Annual Wellness Visit (AWV) [facility] Start: 1938 Potassium measurement Potassium Level [facility] Start: 1938 Screening for osteoporosis Bone Density Scan [facility] Comprehensive metabo lic 2000 panel - Serum or Plasma [facility] Patient Education [facility] Work Phone: Patient referral [facility] Work Phone: End: 02-06-2023 XR HIP GENERAL 3V PELV/AP/LAT RIGHT XR HIP GENERAL 3V PELV/AP/LAT RIGHT Radiology Routine History of revision of total replacement of right hip joint 1 Occurrences starting 01/07/2022 until 02/06/2023 [facility] Work Phone: Comment on above: 1 Occurrences starting 01/07/2022 until 02/06/2023 [facility] Immunizations Immunization Date Immunization Notes Care Provider Osmani jordan 02-22-2024 influenza, high dose seasonal, preservative-free [facility] 03-21-2023 influenza virus vaccine, unspecified formulation DO Blue Navarro Work Phone: [facility] 03-21-2023 influenza, high dose seasonal, preservative-free Blue Navarro Other [employer] Other 03-21-2022 Influenza vaccine, quadrivalent, adjuvanted Blue Navarro DO Work Phone: [facility] 03-21-2022 influenza virus vaccine, split virus (incl. purified surface antigen) Blue Navarro Other [employer] Other 03-21-2022 influenza virus vaccine, unspecified formulation DO Blue Ball Work Phone: [facility] 03-21-2022 influenza, high dose seasonal, preservative-free Blue Ball Other [facility] [employer] Other 03-15-2021 influenza virus vaccine, split virus (incl. purified surface antigen) Blue Ball Other [employer] Other 03-15-2021 influenza virus vaccine, unspecified formulation DO Blue Ball Work Phone: [facility] 07-22-2020 COVID-19 mRNA, Comirnaty (Pfizer) DO Blue Ball Work Phone: [facility] 06-29-2020 COVID-19 mRNA, Comirnaty (Pfizer) DO Blue Ball Work Phone: [facility] 03-12-2020 influenza virus vaccine, split virus (incl. purified surface antigen) Blue Ball Other [facility] [employer] Other 03-12-2020 influenza virus vaccine, unspecified formulation DO Blue Ball Work Phone: [facility] 03-12-2020 Seasonal trivalent influenza vaccine, adjuvanted, preservative free Blue Ball DO Work Phone: [facility] 02-14-2019 Seasonal trivalent influenza vaccine, adjuvanted, preservative free Blue Ball DO Work Phone: [facility] 02-14-2019 influenza virus vaccine, unspecified formulation Xr Hts Work Phone: [facility] 02-12-2018 influenza virus vaccine, split virus (incl. purified surface antigen) Blue Ball Other [facility] [employer] Other 02-12-2018 influenza virus vaccine, unspecified formulation DO Blue Ball Work Phone: [facility] 02-12-2018 Seasonal trivalent influenza vaccine, adjuvanted, preservative free Blue Navarro DO Work Phone: [facility] 01-15-2015 pneumococcal conjuga te vaccine, 13 valent Blue Navarro Other [facility] 01-14-2015 pneumococcal conjuga te vaccine, 13 valent Blue Navarro Other [facility] 01-14-2015 pneumococcal Conjuga te, unspecified formulation; Translations: [Need for prophylactic vaccination against Streptococcus pneumoniae (pneumococcus)] Blue Navarro Other [facility] [employer] Other 04-18-2014 influenza, injectabl e, quadrivalent, contains preservative Blue Navarro DO Work Phone: [facility] 03-28-2013 tetanus and diphther ia toxoids, adsorbed, preservative free, for adult use (5 Lf of tetanus toxoid and 2 Lf of diphtheria toxoid) Blue Navarro Other [facility] 11-23-1999 tetanus toxoid, adsorbed Blue Navarro Other [facility] Payers Date Payer Category Payer Unknown 2022 Medicare [id number] 2022 Self-pay [id number] 2015 Private Health Insurance HUMANA HUMANA MEDICARE SUPPLEMENT [id number] 2015-Present [phone] [address] [address] [place] [address] Indemnity [id number] 2015 Private Health Insurance [id number] 2003 Medicare MEDICARE MEDICAR E A AND B [id number] 2003-Present [phone] [facility] [address] [place] [address] Medicare [id number] 2003 Medicare [id number]. [id number] 1959 Medicare [id number] 1959 Private Health Insurance [id number] 1938 Unknown [id number] 2.840.1.864736.3.579. 2.593 1938 Unknown [id number] 2.840.1.451080.3.579. 2.593 1938 Unknown [id number] 2.840.1.767218.3.579. 2.356 1938 Unknown [id number] 2.840.1.229341.3.579. 2.356 1938 Unknown [id number] 2.840.1.567145.3.579. 2.356 1938 Unknown [id number] 2.840.1.487876.3.579. 2.356 1938 Unknown [id number] 2.840.1.869107.3.579. 2.356 1938 Unknown [id number] 2.840.1.822687.3.579. 2.356 1938 Unknown [id number] 2.16840.1.719177.3.579. 2.356 1938 Unknown [id number] 2.840.1.760132.3.579. 2.356 1938 Unknown [id number] 2.840.1.330802.3.579. 2.356 1938 Unknown [id number] 2.16.840.1.167736.3.579. 2.356 1938 Unknown [id number] 2.16.840.1.187236.3.579. 2.356 1938 Unknown [id number] 2.16.840.1.920644.3.579. 2.356 1938 Unknown [id number] 2.16.840.1.124273.3.579. 2.1244 1938 Unknown [id number] 2.16.840.1.591076.3.579. 2.1244 1938 Unknown [id number] 2.16.840.1.072681.3.579. 2.1244 Unknown [id number] 2.840.1.149584.3.579. 2.531 Unknown [id number] 2.16840.1.981707.3.579. 2.531 Unknown [id number] 2.16.840.1.438666.3.579. 2.531 Unknown [id number] 2.840.1.627718.3.579. 2.531 Social History Date Type Detail Facility Tobacco smoking stat [facility] Unknown if ever smoked [facility] Start: 1940 Sex Assigned At Female [facility] Start: 09-29-2020 End: 04-26-2023 Tobacco smoking status NHIS Ex-smoker [facility] Start: 09-29-1974 End: 09-30-1979 History of tobacco use Current smoker [facility] Start: 09-29-2020 End: 11-28-2023 Cigarettes smoked current (pack per day) - Reported 0.5 [facility] Comment on above: 40-50 years ago; Start: 09-29-2020 End: 04-26-2023 Tobacco use and exposure Smokeless tobacco non-user [facility] Start: 04-27-2021 End: 07-27-2021 Alcohol intake Ex-drinker (finding) [facility] Start: 1940 Sex Assigned At Not on file [facility] Start: 06-27-2021 End: 11-28-2023 Exposure to SARS-CoV-2 (event) Not sure [facility] Start: 09-29-1974 End: 09-30-1979 History of tobacco use Cigarette Smoker [facility] Start: 05-06-2022 End: 05-12-2022 Tobacco smoking status NHIS Never smoked tobacco (finding) [facility] Start: 04-26-2023 End: 11-28-2023 Sex Assigned At [facility] Start: 05-01-2023 End: 11-28-2023 Alcohol intake Current drinker of alcohol (finding) [facility] Work Phone: Start: 04-26-2023 Alcohol Comment occasionally [facility] Work Phone: Adult Depression Screening Assessment 2 [facility] Start: 04-23-2024 End: 08-22-2024 Sex Female (finding) [facility] Medical Equipment Procedure Code Equipment Code Equipment Origin al Text Equipment Identifier Dates Insertion, pacemaker Endocardial pacing lead [id number] FDA Start: 05-06-2022 Insertion, pacemaker Endocardial pacing lead [id number] FDA Start: 05-06-2022 Insertion, pacemaker Dual-chamber implantable pacemaker, rate-responsive [id number] FDA Start: 05-06-2022 Trident X3 Polyethylene Insert 0deg 32mm Sz D [id number] Start: 01-22-2021 Head V40 32mm -4 mm Offset Taper Biolox Delta Femoral Hip - [id number] Start: 01-22-2021 Stem Accolade Ii 5 127d Femoral - [id number] Start: 01-22-2021 Head V40 Lfit 22 mm +0mm Offset Taper Cocr Femoral Primary Hip - [id number] Start: 02-10-2021 Shell Trident Ii 50mm D Tritanium Acetabular 3 Screw Hole Cluster Sterile - [id number] Start: 01-22-2021 Insert Mobile Be aring Hip Adventism 38d X3 22.2mm Acetabular Anatomic - [id number] Start: 02-10-2021 Liner 38mm D Acetabular Modular 2 Mobility Hip - [id number] Start: 02-10-2021 Screw Trident Ii 6.5mm 30mm Bone Low Profile Hexagonal Sterile - [id number] Start: 01-22-2021 Femoral artery closure plug/patch, synthetic polymer [id number] FDA Start: 05-06-2022 Goals Date Patient Goal Desired Activity /State Functional Status Date Assessment Result Facility 05-13-2022 Functional status Patient at Baseline [facility] Work Phone: 05-12-2022 Functional status Patient at Baseline [facility] Work Phone: 05-09-2022 Functional status Patient at Baseline [facility] Work Phone: Mental Status Date Assessment Result Facility 05-13-2022 Cognitive function Cognitive Sta tus Patient at Baseline [facility] Work Phone: 05-12-2022 Cognitive function Cognitive Sta tus Patient at Baseline [facility] Work Phone: 05-09-2022 Cognitive function Cognitive Sta tus Patient at Baseline [facility] Work Phone: Clinical Notes 09-29-2020 to 02-22-2024 Note Date & Type Note Facility 02-22-2024 Evaluation note Diagnosis Onset Date Resolution Elevated cholesterol acute Feb 9:54am MAGALY (generalized anxiety disorder) acute February 22, 2024 9:54am Lumbar spondylosis acute 2023 9:54am Overweight acute February 9:54am Primary hypertension acute Feb 9:54am Primary osteoarthritis of left knee acute February 22, 2024 9:54am Type 2 diabetes mellitus with hyperglycemia acute February 9:54am [facility] Work Phone: 1(948) 341-740906-25-2024 Instructions* Patient Instructions* Chantell Mathews LPN - 11/28/2023 9:10 AM EDT Please bring all medicines, vitamins, and herbal supplements with you when you come to the office. Prescriptions will not be filled unless you are compliant with your follow up appointments or have a follow up appointment scheduled as per instruction of your physician. Refills should be requested at the time of your visit. documented in [facility] Work Phone: [phone] 926-405101-29-2024 Evaluation note* Encounter Date Diagnosis Assessment Notes Treatment Notes Treatment Clinical Notes Jun, Primary hypertension (ICD-10 - I10) [employer] Other 11-27-2023 Evaluation + Plan note* Assessment & Plan Note - MELANIE Josue - 05/01/2023 8:53 AM ESTAssociated Problem(s): Mixed hyperlipidemia Maintained on low intensity statin Is due for annual lab work [facility] Work Phone: [phone] 894-197911-27-2023 Evaluation + Plan note* Assessment & Plan Note - MELANIE Josue - 05/01/2023 8:53 AM ESTAssociated Problem(s): Essential hypertension, benign Elevated in office Follows at home and 'always fine' Complaint with norvasc and royervan No beta-jermain due to myasthenia gravis [facility] Work Phone: [phone] Miscellaneous Notes* Assessment & Plan Note - MELANIE Josue - 05/01/2023 8:53 AM ESTAssociated Problem(s): Mixed hyperlipidemia Maintained on low intensity statin Is due for annual lab work * Assessment & Plan Note - MELANIE Josue - 05/01/2023 8:53 AM EST Associated Problem(s): Essential hypertension, benign Elevated in office Follows at home and 'always fine' Complaint with norvasc and diovan No beta-jermain due to myasthenia gravis * Assessment & Plan Note - MELANIE Josue - 05/01/2023 8:04 AM EST Associated Problem(s): Stress-induced cardiomyopathy May 2022: cardiac cath Takotsubo EF 40% October 2022: TTE normalized WMA EF 55% * Assessment & Plan Note - MELANIE Josue - 05/01/2023 8:03 AM EST Associated Problem(s): Mild CAD May 2022 cardiac cath minimal CAD * Assessment & Plan Note - MELANIE Josue - 05/01/2023 8:03 AM EST Associated Problem(s): Cardiac pacemaker May 2022: SJM dual-chamber PPM (complete heart block) Jan 2023 device interrogation ORDER CONTROL CLERK BLOOD BANK 12% * Assessment & Plan Note - MELANIE Josue - 05/01/2023 8:02 AM EST Associated Problem(s): Cardiac and Vasculature May 2022 presented to [facility] due to weakness. She was noted to have torsades and complete heart block. Cardiac catheterization revealed minimal coronary artery disease and evidence of Takotsubo cardiomyopathy with a EF 40%. On May 06, 2022 uneventful dual-chamber perma nent pacemaker implant by Dr. Zhao. She was then readmitted shortly after discharge due to shortness of breath and Lasix was added to medical regimen. 3 month post PPM implant follow up unremarkable. Repeat October 2022 TTE with resolution Takotsubo WMA, EF 55%. documented in this [facility] Work Phone: [phone] 268-414311-27-2023 History of Present illness Narrative* MELANIE Josue - 05/01/2023 8:30 AM EST Chief Complaint Doing good 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 Routine 6-month follow-up Patient presents to the office today for outpatient follow-up for Takotsubo cardiomyopathy, permanent pacemaker, mild coronary artery disease and secondary prevention. Last evaluated in clinic by myself November 2022. Presents today ambulatory with cane and steady gait. Accompanied by patient Patient denies any hospitalizations or significant changes to interval medical history since last office follow-up. She follows routinely with PCP. History of Present Illness Patient remains an extremely pleasant 83-year-old female who presents to the office today without voice cardiovascular complaints. She remains active completing ADLs, she walks 1 mile on a daily basis, does housework. No stairs at home. She has no voiced exertional complaints. No evidence orthopneaor PND. Her blood pressure is elevated in the office today. She reports slightly elevated at PCP follow-up over the summer. She does follow her blood pressure routinely at home, has a arm cuff. Reports systolic blood pressures consistently below 130. Plan at this time will be to record blood pressure over the next 2 weeks, return to clinic so I can calibrate machine. We will make decision at that time ifantihypertensives need to be adjusted. Patient reports that overall has no complaint(s) of chest pain, exertional chest pressure/discomfort, fatigue, irregular heart beat, lower extremity edema, orthopnea, and paroxysmal nocturnal dyspnea Daily activity: Walks 1 mile a day. Denies any change in exercise capacity or functional tolerance since last office visit. The importance of primary prevention reviewed: HTN: Elevated in office, plan as outlined above. HLD: Due for annual lab work DM: Denies Smoker: Denies BMI: Reviewed the merits of healthy lifestyle choices on overall cardiovascular health. Review of Systems Cardiovascular: Negative for chest pain, dyspnea on exertion, irregular heartbeat, leg swelling, near-syncope, orthopnea, palpitations, paroxysmal nocturnal dyspnea and syncope. Visit Vitals BP 168/82 (BP Location: Left arm, Patient Position: Sitting) Pulse 62 Ht 1.6 m (5' 3 ) Wt 62.6 kg (138 lb) BMI 24.45 kg/m Smoking Status Former BSA 1.67 m Physical Exam Vitals and nursing note reviewed. HENT: Head: Normocephalic. Cardiovascular: Rate and Rhythm: Normal rate and regular rhythm. Heart sounds: Normal heart sounds. Pulmonary: Effort: Pulmonary effort is normal. Breath sounds: Normal breath sounds. Abdominal: Palpations: Abdomen is soft. Musculoskeletal: Right lower leg: No edema. Left lower leg: No edema. Skin: General: Skin is warm and dry. Neurological: General: No focal deficit present. Mental Status: She is alert. Psychiatric: Mood and Affect: Mood normal. Behavior: Behavior normal. No Known Allergies Current Outpatient Medications Medication Instructions aspirin 81 mg EC tablet 1 tablet, oral, Daily atorvastatin (Lipitor) 10 mg tablet 1 tablet, oral, Nightly citalopram (CeleXA) 20 mg tablet 1 tablet, oral, Daily diazePAM (Valium) 5 mg tablet 1 tablet, oral, 3 times daily PRN furosemide (Lasix) 40 mg tablet 1 tablet, oral, Daily magnesium oxide (Mag-Ox) 400 mg (241.3 mg magnesium) tablet 1 tablet, oral, Daily valsartan (DIOVAN) 160 mg, oral, Daily Assessment: Cardiac and Vasculature May 2022 presented to [facility] due to weakness. She was noted to have torsades and complete heart block. Cardiac catheterization revealed minimal coronary artery disease and evidence of Takotsubo cardiomyopathy with a EF 40%. On May 06, 2022 uneventful dual-chamber perma nent pacemaker implant by Dr. Zhao. She was then readmitted shortly after discharge due to shortness of breath and Lasix was added to medical regimen. 3 month post PPM implant follow up unremarkable. Repeat October 2022 TTE with resolution Takotsubo WMA, EF 55%. Cardiac pacemaker May 2022: SJM dual-chamber PPM (complete heart block) Jan 2023 device interrogation ORDER CONTROL CLERK BLOOD BANK 12% Mild CAD May 2022 cardiac cath minimal CAD Stress-induced cardiomyopathy May 2022: cardiac cath Takotsubo EF 40% October 2022: TTE normalized WMA EF 55% Essential hypertension, benign Elevated in office Follows at home and 'always fine' Complaint with norvasc and diovan No beta-jermain due to myasthenia gravis Mixed hyperlipidemia Maintained on low intensity statin Is due for annual lab work Plan: Through informed decision making process incorporating patients unique circumstances, the followingtreatment plan will be initiated: 1. Prescription drug management of cardiovascular medication for efficacy, adherence to treatment, side effect assessment and polypharmacy. Current treatment clinically warranted and to continue without modifications. 2. Take blood pressure every morning 2 hours after taking medications and record. Bring blood pressure machine to next office visit so that I can check it. 3. Annual labs 4. Return for follow-up; in the interim, contact the office if new symptoms arise. FIRMWARE DEVELOPER in 2 weeks Shanna Caldera MSN, GEOLOGICAL AIDE-REPATCHER, PMHNP-BC [facility] Please excuse any errors in grammar or translation related to this dictation. Voice recognition software was utilized to prepare this document. documented in this [facility] Work Phone: [phone] Instructions* Patient Instructions* MELANIE Josue - 05/01/2023 8:30 AM EST PLAN: Through informed decision making process incorporating patients unique circumstances, the followingtreatment plan will be initiated: 1. Prescription drug management of cardiovascular medication for efficacy, adherence to treatment, side effect assessment and polypharmacy. Current treatment clinically warranted and to continue without modifications. 2. Take blood pressure every morning 2 hours after taking medications and record. Bring blood pressure machine to next office visit so that I can check it. 3. Annual labs 4. Return for follow-up; in the interim, contact the office if new symptoms arise. FIRMWARE DEVELOPER in 2 weeks documented [facility] Work Phone: [phone] 768-241311-27-2023 Evaluation + Plan note* Assessment & Plan Note - MELANIE Josue - 05/01/2023 8:04 AM ESTAssociated Problem(s): Stress-induced cardiomyopathy May 2022: cardiac cath Takotsubo EF 40% October 2022: TTE normalized WMA EF 55% [facility] Work Phone: [phone] 265-522311-27-2023 Evaluation + Plan note* Assessment & Plan Note - MELANIE Josue - 05/01/2023 8:03 AM ESTAssociated Problem(s): Mild CAD May 2022 cardiac cath minimal CAD [facility] Work Phone: [phone] Evaluation + Plan note* Assessment & Plan Note - MELANIE Josue - 05/01/2023 8:03 AM ESTAssociated Problem(s): Cardiac pacemaker May 2022: SJM dual-chamber PPM (complete heart block) Jan 2023 device interrogation ORDER CONTROL CLERK BLOOD BANK 12% [facility] Work Phone: [phone] [phone] Evaluation + Plan note* Assessment & Plan Note - MELANIE Josue - 05/01/2023 8:02 AM ESTAssociated Problem(s): Cardiac and Vasculature May 2022 presented to [facility] due to weakness. She was noted to have torsades and complete heart block. Cardiac catheterization revealed minimal coronary artery disease and evidence of Takotsubo cardiomyopathy with a EF 40%. On May 06, 2022 uneventful dual-chamber perma nent pacemaker implant by Dr. Zhao. She was then readmitted shortly after discharge due to shortness of breath and Lasix was added to medical regimen. 3 month post PPM implant follow up unremarkable. Repeat October 2022 TTE with resolution Takotsubo WMA, EF 55%. [facility] Work Phone: [phone] Evaluation note* Encounter Date Diagnosis Assessment Notes Treatment Notes Treatment Clinical Notes Mar, Primary hypertension (ICD-10 - I10) This patient is instructed to consume a healthy, low-fat, low-salt diet. They are also encouraged to continue exercise to achieve/maintain a normal BMI. Patient is instructed on home BP measurements: - rest for 5 minutes w/o talking- positioned w/ feet on floor and arm supported- average best 2/3 readings w/ goal < 135/85 Call w/ update in couple weeks Mar, Type 2 diabetes mellitus with hyperglycemia, without long-term current use of insulin (ICD-10 - E11.65) This patient is following a comprehensive diabetic treatment plan. They are checking their feet daily for calluses and nonhealing ulcers. They are being seen for yearly dilated eye examinations. Goals: SBP less than 130, LDL less than 100, FBS less than 140, A1C less than 7%. Mar, Elevated cholesterol (ICD-10 - E78.00) Instructed on diet and exercise with continued statin therapy.Discussed the beneficial effects of lowering cholesterol in reducing the risk for cerebrovascular and cardiovascular disease. Mar, MAGALY (generalized anxiety disorder) (ICD-10 - F41.1) Healthy diet and exercise Keep active Mar, Primary osteoarthritis of right hip (ICD-10 - M16.11) Ice/heat and Tylenol. Fall precautions Use cane/walker for stability Mar, Heart failure with improved ejection fraction (HFimpEF) (ICD-10 - I50.22) Instructed on low salt diet, exercise and daily weights. Instructed to notify office for any unexpected weight gain > 3lbs and/or increased dyspnea, difficulty breathing during sleep, worsening lower extremity swelling, chest pain or lightheadedness. Reviewed GDMT w/ beta blockers, MANOJ/ARB/ARNI, MRA and SGLT-2 Mar, Lumbar spondylosis (ICD-10 - M47.816) Stretching exercises, heat/ice and salonpas patch. Tylenol as needed. Mar, Complete heart block (ICD-10 - I44.2) s/p PM insertion. f/u Cardiology clinic as scheduled Mar, Pacemaker (ICD-10 - Z95.0) f/u PM clinic [employer] Other 07-13-2023 Evaluation note* Encounter Date Diagnosis Assessment Notes Treatment Notes Treatment Clinical Notes Dec, Primary hypertension (ICD-10 - I10) This patient is instructed to consume a healthy, low-fat, low-salt diet. They are also encouraged to continue exercise to achieve/maintain a normal BMI. Dec, Type 2 diabetes mellitus with hyperglycemia, without long-term current use of insulin (ICD-10 - E11.65) This patient is following a comprehensive diabetic treatment plan. They are checking their feet daily for calluses and nonhealing ulcers. They are being seen for yearly dilated eye examinations. Goals: SBP less than 130, LDL less than 100, FBS less than 140, AC and A1C less than 7%. They are checking their BS daily, will which are reviewed at the office visit. Continue regular routine monitoring of A1C,] Microalbumin, Dilated eye exam and Foot exam Dec, Chronic HFrEF (heart failure with reduced ejection fraction) (ICD-10 - I50.22) MG prohibits BB Instructed on low salt diet, exercise and daily weights. Instructed to notify office for any unexpected weight gain > 3lbs and/or increased dyspnea, difficulty breathing during sleep, worsening lower extremity swelling, chest pain or lightheadedness. Reviewed GDMT w/ beta blockers, MANOJ/ARB/ARNI, MRA and SGLT-2 Dec, Takotsubo cardiomyopathy (ICD-10 - I51.81) Stress induced No s/s tachycardia or CHF Fluid and salt restriction Monitor daily weights - extra diuretic for any unexplained weight gain > 3lbs Home monitoring for recurrent VT Dec, Elevated cholesterol (ICD-10 - E78.00) Instructed on diet and exercise with continued statin therapy.Discussed the beneficial effects of lowering cholesterol in reducing the risk for cerebrovascular and cardiovascular disease. Dec, MAGALY (generalized anxiety disorder) (ICD-10 - F41.1) Healthy diet, keep active Dec, Complete heart block (ICD-10 - I44.2) f/u Cardiology for PM checks Dec, Pacemaker (ICD-10 - Z95.0) [employer] Other 04-13-2023 Evaluation note* Encounter Date Diagnosis Assessment Notes Treatment Notes Treatment Clinical Notes Sep, Essential hypertension (ICD-10 - I10) This patient is instructed to consume a healthy, low-fat, low-salt diet. They are also encouraged to continue exercise to achieve/maintain a normal BMI. Sep, Takotsubo cardiomyopathy (ICD-10 - I51.81) Daily weights Take extra Lasix for unexplained weight gain > 2lbs Sep, MAGALY (generalized anxiety disorder) (ICD-10 - F41.1) Healthy diet, keep active, no change in medications [employer] Other 04-03-2023 Evaluation note* Encounter Date Diagnosis Assessment Notes Treatment Notes Treatment Clinical Notes Sep, Essential hypertension (ICD-10 - I10) [employer] Other 03-29-2023 Evaluation note* Encounter Date Diagnosis Assessment Notes Treatment Notes Treatment Clinical Notes Aug, Essential hypertension (ICD-10 - I10) [employer] Other 03-24-2023 Evaluation note* Encounter Date Diagnosis Assessment Notes Treatment Notes Treatment Clinical Notes Aug, Essential hypertension (ICD-10 - I10) This patient is instructed to consume a healthy, low-fat, low-salt diet. They are also encouraged to continue exercise to achieve/maintain a normal BMI. Due to elevated BP, fluid retention and dyspnea, she is being sent to ER for evaluation. She will need IV diuretic and antihypertensive She will need labs to r/o myocardial ischemia Aug, Takotsubo cardiomyopathy (ICD-10 - I51.81) Continue GDMT Aug, HFrEF (heart failure with reduced ejection fraction) (ICD-10 - I50.20) Avoid salt, healthy diet, exercise. Daily weights, extra diuretic for weight gain. Improve BP control Aug, Type 2 diabetes mellitus with hyperglycemia, without long-term current use of insulin (ICD-10 - E11.65) This patient is following a comprehensive diabetic treatment plan. They are checking their feet daily for calluses and nonhealing ulcers. They are being seen for yearly dilated eye examinations. Goals: SBP less than 130, LDL less than 100, FBS less than 140, AC and A1C less than 7%. They are checking their BS daily, will which are reviewed at the office visit. Aug, Chronic venous insufficiency (ICD-10 - I87.2) Avoid salt and elevate lower extremities, support stockings, inspect legs and feet daily for blisters and ulcerations. Aug, Hyperlipidemia, group A (ICD-10 - E78.00) Diet and exercise with continued statin therapy. Aug, Anxiety, generalized (ICD-10 - F41.1) Healthy diet, exercise and continue SSRI and VAlium PRN [employer] Other 03-22-2023 Evaluation note* Encounter Date Diagnosis Assessment Notes Treatment Notes Treatment Clinical Notes Aug, Medicare annual wellness visit, subsequent (ICD-10 - Z00.00) Personalized health advice was given to the beneficiary including a written plan for screenings discussed and provided. Advanced care planning reviewed and/or information given as requested. Additional counseling was provided here today in regards to, [ ]. The above visit was performed by [ ], under direct supervision of [ ]. Document reviewed and amended by provider signed below. Healthy diet and exercise. Reviewed age-appropriate preventive testing recommended. Aug, Essential hypertension (ICD-10 - I10) This patient is instructed to consume a healthy, low-fat, low-salt diet. They are also encouraged to continue exercise to achieve/maintain a normal BMI. Aug, Type 2 diabetes mellitus with hyperglycemia, without long-term current use of insulin (ICD-10 - E11.65) This patient is following a comprehensive diabetic treatment plan. They are checking their feet daily for calluses and nonhealing ulcers. They are being seen for yearly dilated eye examinations. Goals: SBP less than 130, LDL less than 100, FBS less than 140, AC and A1C less than 7%. They are checking their BS daily, will which are reviewed at the office visit. A1C: [ ] Microalbumin: [ ] Eye exam: [ ] Foot exam: [ ] Aug, Takotsubo cardiomyopathy (ICD-10 - I51.81) Continue GDMT Echo scheduled w/ Cardiology Aug, HFrEF (heart failure with reduced ejection fraction) (ICD-10 - I50.20) Continue GDMT Daily weights, take extra diuretic for unexpected weight gain > 3lbs Aug, Hyperlipidemia, group A (ICD-10 - E78.00) Diet and exercise with continued statin therapy. Aug, Anxiety, generalized (ICD-10 - F41.1) Healthy diet, keep active Aug, Chronic venous insufficiency (ICD-10 - I87.2) Avoid salt and elevate lower extremities, support stockings, inspect legs and feet daily for blisters and ulcerations. Aug, History of cardiac pacemaker in situ (ICD-10 - Z95.0) Aug, High risk medication use (ICD-10 - Z79.899) [employer] Other 03-14-2023 Evaluation note* Encounter Date Diagnosis Assessment Notes Treatment Notes Treatment Clinical Notes Aug, Essential hypertension (ICD-10 - I10) This patient is instructed to consume a healthy, low-fat, low-salt diet. They are also encouraged to continue exercise to achieve/maintain a normal BMI. Aug, Type 2 diabetes mellitus with hyperglycemia, without long-term current use of insulin (ICD-10 - E11.65) This patient is following a comprehensive diabetic treatment plan. They are checking their feet daily for calluses and nonhealing ulcers. They are being seen for yearly dilated eye examinations. Goals: SBP less than 130, LDL less than 100, FBS less than 140, AC and A1C less than 7%. They are checking their BS daily, will which are reviewed at the office visit. A1C at wellness examination. Aug, Takotsubo cardiomyopathy (ICD-10 - I51.81) Stress induced cardiomyopathy No hemodynamically significant CAD noted on [facility] Aug, HFrEF (heart failure with reduced ejection fraction) (ICD-10 - I50.20) GDMT as much as tolerable. Unable to continue BB due to exacerbation of MG symptoms. Daily weights, extra diuretic for excessive weight gain - frequency is once weekly Aug, Hyperlipidemia, group A (ICD-10 - E78.00) Diet and exercise with continued statin therapy. Aug, Anxiety, generalized (ICD-10 - F41.1) Healthy diet, keep active and continue Celexa Aug, Chronic venous insufficiency (ICD-10 - I87.2) Avoid salt and elevate lower extremities, support stockings, inspect legs and feet daily for blisters and ulcerations. Aug, RLS (restless legs syndrome) (ICD-10 - G25.81) Symptoms tolerable Aug, History of cardiac pacemaker in situ (ICD-10 - Z95.0) f/u Cardiology 80% use [employer] Other 02-13-2023 Evaluation note* Encounter Date Diagnosis Assessment Notes Treatment Notes Treatment Clinical Notes Jul, Essential hypertensi on (ICD-10 - I10) This patient is instructed to consume a healthy, low-fat, low-salt diet. They are also encouraged to continue exercise to achieve/maintain a normal BMI. Increasing Lisinopril to 10mg and can take extra 5mg q evening for SBP > 160. Goal is < 140.90 Jul, Type 2 diabetes mellitus with hyperglycemia, without long-term current use of insulin (ICD-10 - E11.65) Diet instructions, monitor A1C every 6-12 mo Inspect feet daily for cuts, yearly dilated eye examination. Jul, Mobitz type 2 second degree atrioventricular block (ICD-10 - I44.1) f/u pacemaker checks: rate? Jul, NSVT (nonsustained ventricular tachycardia) (ICD-10 - I47.29) Continue Coreg and Mg. Avoid stimulants Jul, Anxiety, generalized (ICD-10 - F41.1) Diazepam qd, avoid stimulants, keep active Jul, RLS (restless legs syndrome) (ICD-10 - G25.81) d/c'd Gabapentin, monitor for now [employer] Other 12-08-2022 History and physical note Author Julio Schreiber [facility] May 12, 2022 7:09pm Note Date/Time May 12, 2022 7 :09pm [facility] [address] [place] [address] Hospitalist H&P Signed Patient: Roseann Dale MR#: [id number] : 1940 Acct:[id number] Age/Sex: 82 / F Adm Date: 2 Loc: Room: [address] [place] [address] Type: ADM IN Attending Dr: Julio Schreiber DO Copies to: DO Julio De Luna, DO~ HPI DATE OF EXAMINATION: 05/12/22 CHIEF COMPLAINT: shortness of breath HISTORY OF PRESENT ILLNESS: Miss Dale is an 82-year-old female with past medical history of hypertriglyceridemia, hypertension, myasthenia gravis, recent diagnosis of Takotsubo cardiomyopathy who presented to hospital with chief complaint earlier today of shortness of breath. The patient was recently discharged on [facility] she was admitted for slow heart rate, shortness of breath where she received a pacemaker. She had been on Lasix therapy prior to that hospitalization and after the pacemaker was implanted and she was on the goal-directed medical therapy for Takotsubo, her Lasix was discontinued and she was discharged hemodynamically stable on the afternoon of 05/08/2022. Patient statesshe did fine at home for couple of days with the new medication regimen, this included Coreg 6.25 twice daily, lisinopril 5 mg daily, aspirin 81 mg daily, magoxide 400 mg daily, and atorvastatin 10 mg daily. Patient states she woke up this morning and was extremely short of breath around 2 AM. She denies any chest pain that woke with the shortness of breath, she denies any cough. She stated that shortness of breath was her only complaint. She subsequently came back to the hospital and chest x-ray showed evidence of vascular congestion consistent with a fluid overload state. She was subsequently admitted to hospital for further evaluation, she was administered 40 mg Lasix IV push in the ED she had a great response to this, shestates her breathing improved rather quickly and her oxygen requirements decreased significantly as well. Her troponin was slightly elevated at 87 and repeat showed trending up at 133 however the patient denied any chest pain. BNPis also elevated at 1500. Review of Systems Review of Systems Review of systems: Constitutional: Denies body aches, chills, fatigue Eyes: Denies any blurry or double vision CV: Denies chest pain, irregular rhythm, shortness of breath, leg swelling Respiratory: See HPI, endorses shortness of breath, denies cough, denies wheeze GI: Denies any nausea, vomiting, diarrhea, constipation, changes in bowel habitsoverall MSK: Denies joint pain, denies joint swelling, denies back pain, denies weakness Neurologic: Denies confusion, denies dizziness, denies headaches, denies lack coordination Psychiatric: Denies depression, denies behavioral changes Hematology: Denies easy bruising, denies easy bleeding PMFSH Vaccinated for COVID-19?: Yes Medical History (Updated 05/12/22 @ 09:48 by Parish Larkin DO) Cataracts, bilateral High triglycerides Hip dislocation, right HTN (hypertension) Myasthenia gravis Pacemaker Surgical History H/O thymectomy History of bowel resection History of hysterectomy History of right hip replacement Hx of appendectomy Social History Smoking Status: Never smoker Substance Use Type: None Meds Medications and Allergies Allergies No Known Allergies Allergy (Verified 05/12/22 06:35) Home Medications citalopram 20 mg tablet 20 mg PO HS 05/05/22 [History Confirmed 05/12/22] diazepam 5 mg tablet 5 mg PO Q6HR PRN Dizziness 05/05/22 [History Confirmed 05/12/22] gabapentin 300 mg capsule 300 mg PO DAILY 05/05/22 [History Confirmed 05/12/22] ondansetron 4 mg disintegrating tablet 4 mg PO Q6H PRN Nausea And Vomiting 05/05/22 [History Confirmed 05/12/22] tramadol 50 mg tablet 50 mg PO Q6HR PRN Pain 05/05/22 [History Confirmed 05/12/22] carvedilol 6.25 mg tablet (Coreg) 6.25 mg PO BID #60 tabs 05/06/22 [Rx Confirmed 05/12/22] clindamycin HCl 300 mg capsule 600 mg PO TID 2 days #12 caps 05/06/22 [Rx Confirmed 05/12/22] aspirin 81 mg tablet,delayed release 81 mg PO DAILY #30 tabs 05/08/22 [Rx Confirmed 05/12/22] atorvastatin 10 mg tablet 10 mg PO QPM #30 tabs 05/08/22 [Rx Confirmed 05/12/22] lisinopril 5 mg tablet 5 mg PO DAILY #30 tabs 05/08/22 [Rx Confirmed 05/12/22] magnesium oxide 400 mg (241.3 mg magnesium) tablet 400 mg PO DAILY #30 tabs 05/08/22 [Rx Confirmed 05/12/22] Exam Physical Exam Vital Signs: Temp Pulse Resp BP Pulse Ox O2 Del Method O2 Flow Rate 97.5 F L 77 18 135/85 96 Nasal Cannula 2 05/12/22 16:00 05/12/22 16:00 05/12/22 16:00 05/12/22 16:00 05/12/22 16:00 05/12/22 16:00 05/12/22 16:00 Narrative: General: Awake alert, no acute distress HEENT: head atraumatic, normocephalic, moist mucous membranes, normal nose and ears, no throat lesions, normal conjunctiva Neck: supple no masses, no lymphadenopathy CVS: regular rate and rhythm, no murmurs or gallops Respiratory: Bilateral lower lobe faint wheezes, no wheezing or crackles, symmetric expansion GI: soft, nondistended, nontender, positive bowel sounds with no organomegaly Extremity: moves all extremities, no restrictions of movements, no calf tenderness, no edema Neuro: AOx3, CN II-VII intact. Moves all extremities in all planes of motion. Skin: dry, intact no rashes or lesions Results Lab Results Labs: Laboratory Last Values Corrected WBC 9.0 X10E3/uL (3.8-11.6) 05/12/22 06:52 Uncorrected WBC Count 9.0 x10E3/uL (3.8-11.6) 05/12/22 06:52 RBC 4.16 X10E6/uL (3.60-5.00) 05/12/22 06:52 Hgb 11.9 g/dL (11.8-15.4) 05/12/22 06:52 Hct 37.3 % (34.0-46.4) 05/12/22 06:52 MCV 89.7 fl (80-100) 05/12/22 06:52 MCH 28.7 pg (24.7-34.3) 05/12/22 06:52 MCHC 32.0 g/dL (32.0-35.0) 05/12/22 06:52 RDW 13.3 % (11.9-15.3) 05/12/22 06:52 Plt Count 278 x10E3/uL (150-450) 05/12/22 06:52 MPV 8.7 fl (6.3-10.7) 05/12/22 06:52 Neut % (Auto) 56.6 % (.) 05/12/22 06:52 Lymph % (Auto) 34.6 % (.) 05/12/22 06:52 [place] % (Auto) 5.3 % (.) 05/12/22 06:52 Eos % (Auto) 2.3 % (.) 05/12/22 06:52 Baso % (Auto) 1.2 % (.) 05/12/22 06:52 Nucleat RBC Rel Count 0.1 /100 WBC (0-0.5) 05/12/22 06:52 Neut # (Auto) 5.1 x10E3/uL (1.8-7.7) 05/12/22 06:52 Lymph # (Auto) 3.1 x10E3/uL (1.00-4.8) 05/12/22 06:52 [place] # (Auto) 0.5 x10E3/uL (0.0-0.8) 05/12/22 06:52 Eos # (Auto) 0.2 x10E3/uL (0.0-0.45) 05/12/22 06:52 Baso # (Auto) 0.1 x10E3/uL (0.0-0.2) 05/12/22 06:52 Monocyte Dist Width 19.79 % (0.00-20.00) 05/12/22 06:52 Platelet Estimate Normal (Normal) 05/12/22 06:52 Plt Morphology Comment Normal (Normal) 05/12/22 06:52 RBC Morphology N/A 05/12/22 06:52 Polychromasia Slight 05/12/22 06:52 PT 12.2 Seconds (9.0-12.9) 05/12/22 06:52 INR 1.1 05/12/22 06:52 APTT 31.0 Seconds (25.1-36.5) 05/12/22 06:52 PHA Creatinine Clear 44.54 05/12/22 06:52 Sodium 136 mmol/L (136-146) 05/12/22 06:52 Potassium 4.2 mmol/L (3.5-5.1) 05/12/22 06:52 Chloride 97 mmol/L (95-114) 05/12/22 06:52 Carbon Dioxide 29.0 mmol/L (22.0-30.0) 05/12/22 06:52 Anion Gap 14.2 mEq/L (6.0-15.0) 05/12/22 06:52 BUN 13 mg/dL (9-23) 05/12/22 06:52 Creatinine 0.85 mg/dL (0.44-1.03) 05/12/22 06:52 Est GFR ( Amer) > 60 mL/Min 05/12/22 06:52 Est GFR (Non-Af Amer) > 60 mL/Min 05/12/22 06:52 Glucose 140 mg/dL (70-100) H 05/12/22 06:52 Calcium 8.7 mg/dL (8.2-10.2) 05/12/22 06:52 Magnesium 2.2 mg/dL (1.6-2.6) 05/12/22 06:52 Total Bilirubin 0.5 mg/dL (0.3-1.2) 05/12/22 06:52 AST 23 U/L (10-42) 05/12/22 06:52 ALT 23 U/L (10-60) 05/12/22 06:52 Alkaline Phosphatase 64 U/L (32-92) 05/12/22 06:52 Troponin I High Sens 133 pg/mL (0-15) H* 05/12/22 10:39 B-Natriuretic Peptide 1499.0 pg/mL (5-100) H 05/12/22 06:52 Total Protein 6.3 gm/dL (6.1-7.9) 05/12/22 06:52 Albumin 3.2 gm/dL (3.2-5.5) 05/12/22 06:52 Globulin 3.1 gm/dL 05/12/22 06:52 Albumin/Globulin Ratio 1.0 05/12/22 06:52 Urine Color Yellow (Yellow) 05/12/22 09:05 Urine Appearance Clear (Clear) 05/12/22 09:05 Urine pH 8.0 (5.0-9.0) 05/12/22 09:05 Ur Specific [place] 1.009 (1.001-1.030) 05/12/22 09:05 Urine Protein Negative mg/dL (Negative) 05/12/22 09:05 Urine Glucose (UA) Normal mg/dL (Normal) 05/12/22 09:05 Urine Ketones Negative (Negative) 05/12/22 09:05 Urine Occult Blood Negative (Negative) 05/12/22 09:05 Urine Nitrite Negative (Negative) 05/12/22 09:05 Urine Bilirubin Negative (Negative) 05/12/22 09:05 Urine Urobilinogen Normal mg/dL (Normal) 05/12/22 09:05 Ur Leukocyte Esterase 1+ (Negative) H 05/12/22 09:05 Urine RBC 1-2 /HPF (0-4) 05/12/22 09:05 Urine WBC 0-1 /HPF (0-4) 05/12/22 09:05 Ur Squamous Epith Cells 5-9 /HPF (0-2) H 05/12/22 09:05 Urine Bacteria None seen (None Seen) 05/12/22 09:05 Hyaline Casts 0-8 /LPF (0-8) 05/12/22 09:05 SARS-CoV-2 Rap RNA(RT-PCR) Negative (Negative) 05/12/22 06:52 Microbiology Results Micro: Microbiology - Results from entire visit 05/12/22 06:52 Nasopharyngeal SARS-CoV-2, Influenza & RSV (PCR) - Final A&P - Hospitalist Assessment/Plan (1) Acute respiratory failure with hypoxia: Plan: ? Received 40 mg IV Lasix in the ED, she will receive 1 more dose of 40 mg IV push Lasix tonight ? Resume her usual dose of 40 mg p.o. Lasix starting tomorrow morning (2) CHF exacerbation: (3) Takotsubo cardiomyopathy: Plan: ? Continue Coreg and lisinopril as ordered ? Continue aspirin Plan ? DVT prophylaxis with subcu heparin ? Diet cardiac diet ? Full code Anticipate discharge tomorrow morning, patient has an appointment at the pacemaker clinic for a wound check at 1:00. Documented By: Julio Schreiber DO 05/12/22 6872 Signed By: <Electronically signed by Julio Schreiber DO> 05/12/22 1909 [facility] Work Phone: 1(210) 708-274512-04-2022 Progress note Author Beau Dillard [facility] May 08, 2022 1:52pm Note Date/Time May 08, 2022 1 :52pm [facility] [address] [place] [address] Cardiology Progress Note Signed Patient: Roseann Dale MR#: [id number] : 1940 Acct:[id number] Age/Sex: 82 / F Adm Date: 2 Loc: Room: [address] [place] [address] Type: ADM IN Attending Dr: José Nelson DO Copies to: ~ Date of Service: 05/08/2022 Subjective Interval history: Patient without new complaint. QTc is acceptable based on paced rhythm Exam Physical Exam Vital Signs: Temp Pulse Resp BP Pulse Ox O2 Del Method O2 Flow Rate 98.0 F 78 20 121/69 92 L Room Air 3 05/08/22 12:00 05/08/22 12:00 05/08/22 12:00 05/08/22 12:00 05/08/22 12:00 05/08/22 12:00 05/08/22 08:00 Const General: cooperative Neck Neck: supple Lymphatic: no lymphadenopathy noted Chest Chest palpation & inspection: normal palpation of entire chest wall (Pacemaker site without hematoma) Resp Effort & Inspection: normal respiratory effort Auscultation: clear to auscultation bilaterally Cardio Palpation: normal PMI Rate: regular rate Rhythm: regular rhythm Heart Sounds: S1 normal and S2 normal Skin General: dry skin Extrem General: full ROM and no clubbing, cyanosis or edema Objective Labs CBC & Chem 7: 05/08/22 06:53 05/08/22 06:53 Labs: Laboratory Results - last 24 hr 05/05/22 05/08/22 05/08/22 18:33 06:53 06:53 Corrected WBC 5.5 Uncorrected WBC Count 5.5 RBC 3.80 Hgb 11.1 L Hct 34.1 MCV 89.6 MCH 29.2 MCHC 32.6 RDW 13.6 Plt Count 172 MPV 8.9 Neut % (Auto) 52.1 Lymph % (Auto) 32.8 [place] % (Auto) 10.9 Eos % (Auto) 3.6 Baso % (Auto) 0.6 Nucleat RBC Rel Count 0.1 Neut # (Auto) 2.9 Lymph # (Auto) 1.8 [place] # (Auto) 0.6 Eos # (Auto) 0.2 Baso # (Auto) 0.0 PHA Creatinine Clear 47.35 Sodium 133 L Potassium 4.0 Chloride 98 Carbon Dioxide 28.6 Anion Gap 10.4 BUN 15 Creatinine 0.83 Est GFR ( Amer) > 60 Est GFR (Non-Af Amer) > 60 Glucose 111 H Estimat Average Glucose 143 Hemoglobin A1c 6.6 H Calcium 8.1 L A&P - Cardiology (1) Heart block: Assessment/Problem Details: Patient underwent implantation of pacemaker without complication Code(s): I45.9 - Conduction disorder, unspecified Status: Acute (2) NSVT (nonsustained ventricular tachycardia): Assessment/Problem Details: Attributed to bradycardia on background of acute stress cardiomyopathy. QTc interval 457 ms with Code(s): I47.29 - Other ventricular tachycardia Status: Acute (3) Takotsubo syndrome: Assessment/Problem Details: Cardiac catheterization suggestive of stress cardiomyopathy Code(s): I51.81 - Takotsubo syndrome Status: Acute (4) HTN (hypertension): Code(s): I10 - Essential (primary) hypertension Status: Acute (5) Symptomatic bradycardia: Code(s): R00.1 - Bradycardia, unspecified Status: Acute (6) UTI (urinary tract infection): Code(s): N39.0 - Urinary tract infection, site not specified Status: Acute (7) Non-ST elevation myocardial infarction (NSTEMI), initial care episode: Code(s): I21.4 - Non-ST elevation (NSTEMI) myocardial infarction Status: Acute Plan 1. Echocardiogram noted 2. Continue beta-jermain, lisinopril and aspirin 3. Add magnesium oxide 4. Patient can be discharged home cardiac [place] Documented By: Beau Dillard MD 05/08/22 1351 Signed By: <Electronically signed by MD Beau Dillard> 05/08/22 1351 [facility] Work Phone: [phone] 768-187112-04-2022 Progress note Author José Nelson [facility] May 08, 2022 12:44pm Note Date/Time May 08, 2022 1 2:44pm [facility] [address] [place] [address] Hospitalist Progress Note Signed Patient: Roseann Dale MR#: [id number] : 1940 Acct:[id number] Age/Sex: 82 / F Adm Date: 2 Loc: Room: [address] [place] [address] Type: ADM IN Attending Dr: José Nelson DO Copies to: ~ Date of Service: 05/08/2022 Subjective Subjective Narrative: Today the patient says that she feels like she is having a little bit better energy. She has been able to ambulate around a little bit. Connection to supplemental oxygen is impairing her mobility. She denies any anginal type chest pain. No chest pain or pressure. She denies any cough or expectoration or sputum. No nausea or upset stomach. Leg edema does seem to be better. She reports of brisk urine output from IV Lasix yesterday and this morning. Daughter in the room with her. Daughter thinks that the patient is beginning toslowly look a little bit better each day. The patient lives alone and independently on her own and does not appear strong enough at this time to go home,per the daughter's report. Patient remains on 3 L oxygen by nasal cannula today. With the daughter in the room I discussed in general in layman's terms the bradycardia, the bradycardia induced tachycardia arrhythmia, pacemaker implantation, finding of Takotsubo's Stress cardiomyopathy on cardiac catheterization. I advised that medications such as Coreg and lisinopril that cardiology has started are likely to improve the Takotsubo's cardiomyopathy a great deal., Showed the daughter in the hallway on the athletic monitor how heart rate is doing now. Right now her heart rate is 77 bpm none of them are paced. Exam Physical Exam Vital Signs: Temp Pulse Resp BP Pulse Ox O2 Del Method O2 Flow Rate 98.0 F 67 20 134/71 93 L Nasal Cannula 3 05/08/22 08:00 05/08/22 08:00 05/08/22 08:00 05/08/22 08:00 05/08/22 08:00 05/08/22 08:00 05/08/22 08:00 Narrative: General: Sitting upright in a chair. Oxygen level reduced from 4 L yesterday nasal cannula down to 3 L nasal cannula today Lungs: Respirations are calm and easy with no wheezing. Does have moderate diminished breath sounds in the bases bilaterally. Lung sounds do seem to be clearing a moderate amount today compared to where they were yesterday. No focal areas of crackles. No cough. No expectoration of any sputum. Heart: Sinus rhythm on the monitor right now with no pacemaking at about 70 to 80 bpm. Auscultation heart sounds are somewhat distant but no hearing rubs or gallops. Abdomen: Soft, normal bowel sounds, no rigidity, guarding, or acute peritoneal signs. Extremities: Leg edema moderately improved compared to yesterday. Still some mild soft edema throughout both legs from the knees to the ankle. Neuro: Awake, Alert, and Oriented x 3. No focal or lateralizing deficits. Objective Lab Results CBC & Chem 7: 05/08/22 06:53 05/08/22 06:53 Meds Allergies and Active Meds Allergies No Known Allergies Allergy (Verified 05/05/22 17:42) Active Meds: Active Medications Generic Name Dose Route Start Last Admin Trade Name Freq PRN Reason Stop Dose Admin Acetaminophen 1,000 mg 05/06/22 09:00 05/07/22 21:33 Acetaminophen 500 Mg Tablet PO 05/06/23 08:59 1,000 mg Q6H PRN Administration Fever or Pain Al Hydrox/Mg Hydrox/Simethicone 30 ml 05/06/22 17:57 Mag Hydrox/Al Hydrox/Simeth 30 Ml Udc PO 05/06/23 17:56 Q4H PRN Epigastric distress (Non-Card) Aspirin 81 mg 05/06/22 09:00 05/08/22 08:08 Aspirin 81 Mg Tablet. PO 05/06/23 08:59 81 mg DAILY SONJA Administration Atorvastatin Calcium 10 mg 05/06/22 21:00 05/07/22 21:34 Atorvastatin 10 Mg Tablet PO 05/06/23 20:59 10 mg QPM SONJA Administration Bisacodyl 10 mg 05/05/22 17:48 Bisacodyl 10 Mg Supp.Rect UT 05/05/23 17:47 DAILY PRN Constipation Bisacodyl 10 mg 05/05/22 17:48 05/08/22 08:11 Bisacodyl 5 Mg Tablet.Dr PO 05/05/23 17:47 10 mg DAILY PRN Administration Constipation Carvedilol 6.25 mg 05/07/22 08:00 05/08/22 08:08 Carvedilol 6.25 Mg Tablet PO 05/07/23 07:59 6.25 mg BID.WITH.MEALS SONJA Administration Citalopram Hydrobromide 20 mg 05/05/22 22:00 05/07/22 21:34 Citalopram 20 Mg Tablet PO 05/05/23 21:59 20 mg HS SONJA Administration Diazepam 5 mg 05/05/22 19:52 05/07/22 21:35 Diazepam 5 Mg Tablet PO 11/01/22 19:51 5 mg Q6HR PRN Administration Dizziness Docusate Sodium 100 mg 05/05/22 17:48 05/06/22 22:03 Docusate 100 Mg Capsule PO 05/05/23 17:47 100 mg BID PRN Administration Constipation Enoxaparin Sodium 30 mg 05/06/22 10:00 05/08/22 09:26 Enoxaparin 30 Mg/0.3 Ml Syringe SUBCUT 05/06/23 09:59 Not Given DAILY@1000 SONJA Furosemide 40 mg 05/08/22 08:00 05/08/22 08:09 Furosemide 40 Mg/4 Ml Vial IV-PUSH 05/08/23 07:59 40 mg DAILY.8A SONJA Administration Gabapentin 300 mg 05/05/22 21:00 05/07/22 21:34 Gabapentin 300 Mg Capsule PO 05/05/23 20:59 300 mg QPM SONJA Administration Ceftriaxone Sodium 1 gm in 50 mls @ 100 mls/hr 05/05/22 20:00 05/07/22 19:53 Rocephin IV 100 mls/hr Q24H SONJA Administration Lisinopril 5 mg 05/06/22 09:00 05/08/22 08:09 Lisinopril 5 Mg Tablet PO 05/06/23 08:59 5 mg DAILY SONJA Administration Magnesium Oxide 400 mg 05/08/22 09:00 05/08/22 08:09 Magnesium Oxide 400 Mg Tablet PO 05/08/23 08:59 400 mg DAILY SONJA Administration Nitroglycerin 0.4 mg 05/06/22 08:58 Nitroglycerin 0.4 Mg Tab.Subl SUBLINGUAL 05/06/23 08:57 Q5M PRN Chest Pain Phenyleph/Shark Oil/Vadito Butter 1 supp 05/07/22 21:00 05/08/22 08:11 Phenylephrine/Vadito Butter 6.25 Mg/2211 Mg 1 Supp UT 05/07/23 20:59 Not Given BID SONJA Potassium Chloride 20 meq 05/05/22 17:48 Potassium Chloride Er 20 Meq Tab.Er.Prt PO 05/05/23 17:47 DAILY PRN Hypokalemia Potassium Chloride 40 meq 05/05/22 17:48 Potassium Chloride Er 20 Meq Tab.Er.Prt PO 05/05/23 17:47 DAILY PRN Hypokalemia Saccharomyces Boulardii 250 mg 05/06/22 08:00 05/08/22 08:09 Saccharomyces Boulardii 250 Mg Capsule PO 05/06/23 07:59 250 mg BID.WITH.MEALS SONJA Administration Tramadol HCl 50 mg 05/06/22 08:58 05/07/22 03:20 Tramadol 50 Mg Tablet PO 11/02/22 08:57 50 mg Q6H PRN Administration Moderate Pain Witch [place]ite/Glycerin 1 pad 05/07/22 13:45 Glycerin/Witch [place]ite 40 Pad Jar TOPICAL 05/07/23 13:44 PRN PRN Discomfort A&P - Hospitalist Assessment/Plan (1) Symptomatic bradycardia: (2) Heart block: (3) HTN (hypertension): (4) UTI (urinary tract infection): (5) NSVT (nonsustained ventricular tachycardia): (6) Takotsubo cardiomyopathy: (7) Constipation: (8) Hemorrhoid: (9) Acute respiratory failure with hypoxia: Plan Assessment: Status post complete heart block, now with permanent pacemaker in place. Status post bradycardia induced ventricular tachycardia, stabilized after temporary pacemaker placed. S/p cardiac catheterization, finding minimal coronary artery disease but findingTakotsubo's morphology. Acute hypoxic respiratory failure, likely due to IV fluids needed to treat her so far here in the hospital. Constipation, which is chronic but exacerbated at the hospital setting. Patient complained of longstanding hemorrhoids. Physical weakness and deconditioning. Plan: Patient needs to be liberated from supplemental oxygen. I do think, that she has no history of lung disease, that this is something that can be achievable soon. Patient needs additional immobilization and strengthening. Continues to need work from physical therapy and Occupational Therapy for mobilization. Coughing, incentive spirometry, deep breathing to reduce oxygen reliance. Cardiology has started Coreg and lisinopril and these can be titrated slowly daily depending on her tolerance with her blood pressure. Have ordered milk of magnesia to get her to move her bowels. I have ordered Preparation H suppositories and Tucks pads for her report of internal and external hemorrhoids. Documented By: José Nelson DO 1239 Signed By: <Electronically signed by José Nelson, DO> 05/08/22 1244 [facility] Work Phone: [phone] 181-272212-03-2022 Progress note Author José Nelson [facility] May 07, 2022 1:50pm Note Date/Time May 07, 2022 1 :50pm [facility] [address] [place] [address] Hospitalist Progress Note Signed Patient: Roseann Dale MR#: [id number] : 1940 Acct:[id number] Age/Sex: 82 / F Adm Date: 2 Loc: Room: [address] [place] [address] Type: ADM IN Attending Dr: José Nelson DO Copies to: ~ Date of Service: 05/07/2022 Subjective Subjective Narrative: Afternoon the patient says that she is very tired. She has not gotten very goodsleep over the last couple nights. She remains on 4 L oxygen by nasal cannula. She says that she has not moved her bowels since, in the hospital. She says that at home every day she takes to milk of magnesia tablets every day for many years to keep her bowels moving. She denies any fevers or chills. She thinks that urinary tract and symptoms are now entirely gone. No abdominal pain. No nausea or upset stomach. She denies any sensation of shortness of breath. No cough or expectorate sputum. No headache or lightheadedness or blurred vision. No chest discomfort at all. Is not complaining of pain at the pacemaker insertion site. She does comment that she has problems with hemorrhoids. She thinks that she isat least 10 years past her last colonoscopy. I recommended that she get a colonoscopy and then discussed with her family doctor about hemorrhoid treatments. Exam Physical Exam Vital Signs: Temp Pulse Resp BP Pulse Ox O2 Del Method O2 Flow Rate 98.0 F 71 22 162/70 H 93 L Nasal Cannula 4 05/07/22 06:00 05/07/22 08:19 05/07/22 08:19 05/07/22 08:19 05/07/22 08:19 05/07/22 08:19 05/07/22 08:19 Narrative: General: Reclining in bed. Looks very tired, need supplemental oxygen at 4 L. Does not use oxygen at home. Lungs: Respirations are calm and easy with no wheezing. Does have moderate diminished breath sounds in the bases bilaterally. Heart: She has a paced rhythm on the monitor at 70 bpm. Auscultation heart sounds are somewhat distant but no hearing rubs or gallops. Abdomen: Soft, normal bowel sounds, no rigidity, guarding, or acute peritoneal signs. Extremities: Now has moderate edema from the ankles up to above the knees bilaterally. Neuro: Awake, Alert, and Oriented x 3. No focal or lateralizing deficits. Objective Lab Results CBC & Chem 7: 05/07/22 04:31 05/07/22 04:31 Meds Allergies and Active Meds Allergies No Known Allergies Allergy (Verified 05/05/22 17:42) Active Meds: Active Medications Generic Name Dose Route Start Last Admin Trade Name Rodrigoq PRN Reason Stop Dose Admin Acetaminophen 650 mg 05/05/22 17:48 Acetaminophen 325 Mg Tablet PO 05/05/23 17:47 Q6HR PRN Pain Scale 1 - 3 or fever Acetaminophen 1,000 mg 05/06/22 08:58 Acetaminophen 500 Mg Tablet PO 05/06/23 08:57 Q6H PRN Mild Pain Acetaminophen 1,000 mg 05/06/22 09:00 Acetaminophen 500 Mg Tablet PO 05/06/23 08:59 Q6H PRN Fever or Pain Al Hydrox/Mg Hydrox/Simethicone 30 ml 05/06/22 08:58 Mag Hydrox/Al Hydrox/Simeth 30 Ml Udc PO 05/06/23 08:57 Q4H PRN Epigastric distress (Non-Card) Al Hydrox/Mg Hydrox/Simethicone 30 ml 05/06/22 17:57 Mag Hydrox/Al Hydrox/Simeth 30 Ml Udc PO 05/06/23 17:56 Q4H PRN Epigastric distress (Non-Card) Aspirin 81 mg 05/06/22 09:00 05/07/22 08:23 Aspirin 81 Mg Tablet. PO 05/06/23 08:59 81 mg DAILY SONJA Administration Atorvastatin Calcium 10 mg 05/06/22 21:00 05/06/22 22:03 Atorvastatin 10 Mg Tablet PO 05/06/23 20:59 10 mg QPM SONJA Administration Bisacodyl 10 mg 05/05/22 17:48 Bisacodyl 10 Mg Supp.Rect UT 05/05/23 17:47 DAILY PRN Constipation Bisacodyl 10 mg 05/05/22 17:48 Bisacodyl 5 Mg Tablet. PO 05/05/23 17:47 DAILY PRN Constipation Carvedilol 6.25 mg 05/07/22 08:00 05/07/22 08:23 Carvedilol 6.25 Mg Tablet PO 05/07/23 07:59 6.25 mg BID.WITH.MEALS SONJA Administration Citalopram Hydrobromide 20 mg 05/05/22 22:00 05/06/22 22:03 Citalopram 20 Mg Tablet PO 05/05/23 21:59 20 mg HS SONJA Administration Diazepam 5 mg 05/05/22 19:52 05/07/22 01:38 Diazepam 5 Mg Tablet PO 11/01/22 19:51 5 mg Q6HR PRN Administration Dizziness Docusate Sodium 100 mg 05/05/22 17:48 05/06/22 22:03 Docusate 100 Mg Capsule PO 05/05/23 17:47 100 mg BID PRN Administration Constipation Docusate Sodium 100 mg 05/06/22 08:58 Docusate 100 Mg Capsule PO 05/06/23 08:57 QHS PRN Constipation Docusate Sodium 100 mg 05/06/22 17:57 Docusate 100 Mg Capsule PO 05/06/23 17:56 QHS PRN Constipation Enoxaparin Sodium 30 mg 05/06/22 10:00 05/07/22 10:52 Enoxaparin 30 Mg/0.3 Ml Syringe SUBCUT 05/06/23 09:59 30 mg DAILY@1000 SONJA Administration Furosemide 40 mg 05/07/22 13:43 Furosemide 40 Mg/4 Ml Vial IV-PUSH 05/07/22 13:44 STAT STA Gabapentin 300 mg 05/05/22 21:00 05/06/22 22:03 Gabapentin 300 Mg Capsule PO 05/05/23 20:59 300 mg QPM SONJA Administration Magnesium Sulfate 2 gm in 50 mls @ 25 mls/hr 05/05/22 17:48 Magnesium Sulf 2gm-*Swfi* IV 05/05/23 17:47 DAILY PRN Magnesium Level < 1.5 Ceftriaxone Sodium 1 gm in 50 mls @ 100 mls/hr 05/05/22 20:00 05/07/22 04:24 Rocephin IV Infused Q24H SONJA Infusion Sodium Chloride 1,000 mls @ 20 mls/hr 05/06/22 09:45 05/07/22 11:11 0.9% Sodium Chloride 1,000 Ml IV 05/06/23 09:44 Not Given .Q24H SONJA Lisinopril 5 mg 05/06/22 09:00 05/07/22 08:23 Lisinopril 5 Mg Tablet PO 05/06/23 08:59 5 mg DAILY SONJA Administration Magnesium Hydroxide 30 ml 05/07/22 13:43 Magnesium Hydroxide Susp 30 Ml Udc PO 05/07/22 13:44 STAT STA Magnesium Oxide 400 mg 05/08/22 09:00 Magnesium Oxide 400 Mg Tablet PO 05/08/23 08:59 DAILY SONJA Morphine Sulfate 4 mg 05/06/22 08:58 Morphine Sulfate 4 Mg/Ml Cartridge IV-PUSH Q20M PRN Chest Pain Nitroglycerin 0.4 mg 05/06/22 08:58 Nitroglycerin 0.4 Mg Tab.Subl SUBLINGUAL 05/06/23 08:57 Q5M PRN Chest Pain Potassium Chloride 20 meq 05/05/22 17:48 Potassium Chloride Er 20 Meq Tab.Er.Prt PO 05/05/23 17:47 DAILY PRN Hypokalemia Potassium Chloride 40 meq 05/05/22 17:48 Potassium Chloride Er 20 Meq Tab.Er.Prt PO 05/05/23 17:47 DAILY PRN Hypokalemia Saccharomyces Boulardii 250 mg 05/06/22 08:00 05/07/22 08:23 Saccharomyces Boulardii 250 Mg Capsule PO 05/06/23 07:59 250 mg BID.WITH.MEALS SONJA Administration Sodium Chloride 0 ml 05/05/22 22:00 05/07/22 08:26 Sodium Chloride 0.9 % 10 Ml Syringe IV-PUSH 05/05/23 21:59 10 ml QSHIFT SONJA Administration Sodium Chloride 10 ml 05/05/22 17:55 Sodium Chloride 0.9 % 10 Ml Syringe IV-PUSH 05/05/23 17:54 PRN PRN Flush Sodium Chloride 0 ml 05/06/22 09:40 Sodium Chloride 0.9 % 10 Ml Syringe IV-PUSH 05/06/23 09:39 PRN PRN Flush Sodium Chloride 10 ml 05/06/22 20:58 Sodium Chloride 0.9 % 10 Ml Vial.Pf INJECTION 05/06/23 20:57 PRN PRN Promethazine Dilution Tramadol HCl 50 mg 05/06/22 08:58 05/07/22 03:20 Tramadol 50 Mg Tablet PO 11/02/22 08:57 50 mg Q6H PRN Administration Moderate Pain Triamcinolone Acetonide 1 applic 05/06/22 17:57 Triamcinolone 0.1% Cream 15 Gm Tube TOPICAL 05/06/23 17:56 QID PRN Irritation A&P - Hospitalist Assessment/Plan (1) Symptomatic bradycardia: (2) Heart block: (3) HTN (hypertension): (4) UTI (urinary tract infection): (5) NSVT (nonsustained ventricular tachycardia): (6) Takotsubo cardiomyopathy: (7) Takotsubo syndrome: (8) Constipation: (9) Hemorrhoid: (10) Acute respiratory failure with hypoxia: Plan Assessment: Status post complete heart block, now with permanent pacemaker in place. Status post bradycardia induced ventricular tachycardia, stabilized after pacemaker placed. S/p cardiac catheterization, finding minimal coronary artery disease but findingTakotsubo's morphology. Acute hypoxic respiratory failure, likely due to IV fluids needed to treat her so far here in the hospital. Constipation, which is chronic but exacerbated at the hospital setting. Patient complained of longstanding hemorrhoids. Physical weakness and deconditioning. Plan: Stop all IV fluids. Give 40 mg Lasix IV stat and again tomorrow morning. Consult to physical therapy and Occupational Therapy for mobilization. Coughing, incentive spirometry, deep breathing to reduce oxygen reliance. Cardiology has started Coreg and lisinopril and these can be titrated slowly daily depending on her tolerance with her blood pressure. Have ordered milk of magnesia to get her to move her bowels. I have ordered Preparation H suppositories and Tucks pads for her report of internal and external hemorrhoids. She moved out of the ICU into the regular medical room with telemetry. Documented By: José Nelson DO [id number] Signed By: <Electronically signed by José Nelson DO> 05/07/22 1350 [facility] Work Phone: [phone]) 427-428012-03-2022 Progress note Author Beau Dillard [facility] May 07, 2022 10:59am Note Date/Time May 07, 2022 1 0:54am [facility] [address] [place] [address] Cardiology Progress Note Signed Patient: Roseann Dale MR#: [id number] : 1940 Acct:[id number] Age/Sex: 82 / F Adm Date: 2 Loc: Room: [address] [place] [address] Type: ADM IN Attending Dr: José Nelson DO Copies to: ~ Date of Service: 05/07/2022 Subjective Interval history: Patient without new complaint. Underwent pacemaker yesterday. No further ventricular tachyarrhythmia Exam Physical Exam Vital Signs: Temp Pulse Resp BP Pulse Ox O2 Del Method O2 Flow Rate 98.0 F 67 20 156/70 H 94 L Nasal Cannula 4 05/07/22 06:00 05/07/22 06:00 05/07/22 06:00 05/07/22 06:00 05/07/22 06:00 05/07/22 08:00 05/07/22 08:00 Const General: cooperative Neck Neck: supple Lymphatic: no lymphadenopathy noted Chest Chest palpation & inspection: normal palpation of entire chest wall (Pacemaker site without hematoma) Resp Effort & Inspection: normal respiratory effort Auscultation: clear to auscultation bilaterally Cardio Palpation: normal PMI Rate: regular rate Rhythm: regular rhythm Heart Sounds: S1 normal and S2 normal Skin General: dry skin Extrem General: full ROM and no clubbing, cyanosis or edema Objective Labs CBC & Chem 7: 05/07/22 04:31 05/07/22 04:31 Labs: Laboratory Results - last 24 hr 05/06/22 05/06/22 05/06/22 09:37 11:57 14:51 Corrected WBC Uncorrected WBC Count RBC Hgb Hct MCV MCH MCHC RDW Plt Count MPV Neut % (Auto) Lymph % (Auto) [place] % (Auto) Eos % (Auto) Baso % (Auto) Nucleat RBC Rel Count Neut # (Auto) Lymph # (Auto) [place] # (Auto) Eos # (Auto) Baso # (Auto) PHA Creatinine Clear Sodium Potassium Chloride Carbon Dioxide Anion Gap BUN Creatinine Est GFR ( Amer) Est GFR (Non-Af Amer) Glucose Calcium Troponin I High Sens 278 H* 286 H* 224 H* 05/06/22 05/07/22 05/07/22 18:29 04:31 04:31 Corrected WBC 8.1 Uncorrected WBC Count 8.1 RBC 3.62 Hgb 10.7 L Hct 32.3 L MCV 89.3 MCH 29.6 MCHC 33.1 RDW 13.9 Plt Count 188 MPV 9.3 Neut % (Auto) 68.2 Lymph % (Auto) 20.2 [place] % (Auto) 9.2 Eos % (Auto) 1.3 Baso % (Auto) 1.1 Nucleat RBC Rel Count 0.4 Neut # (Auto) 5.5 Lymph # (Auto) 1.6 [place] # (Auto) 0.7 Eos # (Auto) 0.1 Baso # (Auto) 0.1 PHA Creatinine Clear 45.87 Sodium 133 L Potassium 4.2 Chloride 99 Carbon Dioxide 26.5 Anion Gap 11.7 BUN 17 Creatinine 0.90 Est GFR ( Amer) > 60 Est GFR (Non-Af Amer) 60 Glucose 168 H Calcium 8.1 L Troponin I High Sens 216 H* 05/07/22 04:31 Corrected WBC Uncorrected WBC Count RBC Hgb Hct MCV MCH MCHC RDW Plt Count MPV Neut % (Auto) Lymph % (Auto) [place] % (Auto) Eos % (Auto) Baso % (Auto) Nucleat RBC Rel Count Neut # (Auto) Lymph # (Auto) [place] # (Auto) Eos # (Auto) Baso # (Auto) PHA Creatinine Clear Sodium Potassium Chloride Carbon Dioxide Anion Gap BUN Creatinine Est GFR ( Amer) Est GFR (Non-Af Amer) Glucose Calcium Troponin I High Sens 106 H* A&P - Cardiology (1) Heart block: Assessment/Problem Details: Patient underwent implantation of pacemaker without complication Code(s): I45.9 - Conduction disorder, unspecified Status: Acute (2) NSVT (nonsustained ventricular tachycardia): Assessment/Problem Details: Attributed to bradycardia on background of acute stress cardiomyopathy. QTc interval 457 ms with Code(s): I47.29 - Other ventricular tachycardia Status: Acute (3) Takotsubo syndrome: Assessment/Problem Details: Cardiac catheterization suggestive of stress cardiomyopathy Code(s): I51.81 - Takotsubo syndrome Status: Acute (4) HTN (hypertension): Code(s): I10 - Essential (primary) hypertension Status: Acute (5) Symptomatic bradycardia: Code(s): R00.1 - Bradycardia, unspecified Status: Acute (6) UTI (urinary tract infection): Code(s): N39.0 - Urinary tract infection, site not specified Status: Acute (7) Non-ST elevation myocardial infarction (NSTEMI), initial care episode: Code(s): I21.4 - Non-ST elevation (NSTEMI) myocardial infarction Status: Acute Plan 1. Check echocardiogram 2. Continue beta-jermain, lisinopril and aspirin 3. Add magnesium oxide Documented By: Beau Dillard MD 05/07/221051 Signed By: <Electronically signed by MD Beau Dillard> 05/07/22 1053 [facility] Work Phone: [phone] Progress note Author Danika Islas [facility] May 06, 2022 2:48pm Note Date/Time May 06, 2022 2 :48pm [facility] [address] [place] [address] Event Note Signed Patient: Roseann Dale MR#: [id number] : 1940 Acct:[id number] Age/Sex: 82 / F Adm Date: 2 Loc: Room: [address] [place] [address] Type: ADM IN Attending Dr: José Nelson DO Copies to: DO José De Luna DO Ruta Semaskiene, MD~ Event Date & Type DATE OF EVENT: 05/06/22 TIME OF EVENT: 07:40 CRITICAL CARE TIME: 35 EVENT TYPE: Code Blue PROCEDURES PERFORMED DURING EVENT: Other Procedure Event Details 82 years old female presented from outside emergency room with bradycardia This morning CODE BLUE was called due to monitor showing V. tach. Upon arrival patient was complaining of being sweaty, not feeling well. Monitor showed ventricular tachycardia which he spontaneously converted to rhythm. Patient never lost pulse or blood pressure. She did not complain of any chest pain. EKG was done which showed second-degree AV block with ventricular rate in mid 40s. Again patient had another episode of V. tach lasting for few seconds, can spontaneously converting back to second-degree AV block. Patient's heart rate remained in the mid 40s with systolic blood pressure being in 130s to 150s. Electrolytes were reviewed, patient was started on magnesium IV 2 g. I decided against amiodarone and lidocaine due to bradycardia. Atropine was not given as the patient's blood pressure still remained stable. Pacer/shock pads were placed. The patient remained awake and oriented x3. Cardiovascular S1 plus S2 with regular rate Lungs were clear to auscultation anterior chest Abdomen was soft I did get in touch with cardiology. Patient was transferred to cardiac cath forfurther evaluation. Documented By: Danika Islas MD 05/06/221443 Signed By: <Electronically signed by Danika Islas MD> 05/06/22 144 [facility] Work Phone: [phone] 221-878712-02-2022 Progress note Author José Nelson [facility] May 06, 2022 1:04pm Note Date/Time May 06, 2022 1 :04pm [facility] [address] [place] [address] Hospitalist Progress Note Signed Patient: Roseann Dale MR#: [id number] : 1940 Acct:[id number] Age/Sex: 82 / F Adm Date: 2 Loc: Room: [address] [place] [address] Type: ADM IN Attending Dr: José Nelson DO Copies to: ~ Date of Service: 05/06/2022 Subjective Subjective Narrative: This morning a medical emergency was called as the patient was having episodes of ventricular tachycardia. She was taken for cardiac catheterization, finding extremely minimal coronary artery disease, but there was a left ventricular ejection fraction reduced at 40% and Takotsubo motion on the left ventricular wall motion. Subjectively this morning the patient is in good spirits. She says that she hasno shortness of breath at all. No anginal type chest discomfort. No nausea or upset stomach. No heartburn. No diarrhea or constipation. No abdominal pain. She just finished voiding at a bedpan. She wondered if her urine could be checked for urinary tract infection she says that she is not having symptoms of urinary tract infection anymore. I explained that I used IV Rocephin on her last night and she will get plenty of other antibiotics because of the need for the pacemaker so my hope is that after this hospital stay is complete and she west different antibiotics than the Bactrim that she was using at home that the urinary tract infection will be fully treated. Exam Physical Exam Vital Signs: Temp Pulse Resp BP Pulse Ox O2 Del Method O2 Flow Rate 97.9 F 60 25 H 137/64 92 L Nasal Cannula 2 05/06/22 07:11 05/06/22 10:45 05/06/22 10:45 05/06/22 10:45 05/06/22 10:45 05/06/22 10:45 05/06/22 10:45 Narrative: Lungs: Clear to auscultation bilaterally, no wheezing. Does have moderate diminished breath sounds in the bases bilaterally. Heart: She has a paced rhythm on the monitor at 60 bpm. Capture is good. No ectopy. No dropped beats. Auscultation heart sounds are somewhat distant but [place] not hear rubs or gallops. Abdomen: Soft, normal bowel sounds, no rigidity, guarding, or acute peritoneal signs. Extremities: No swelling or cords in the calves bilaterally, mild edema in the ankles bilaterally (right chronically more than left.) Skin: Warm and dry all over. Neuro: Awake, Alert, and Oriented x 3. No focal or lateralizing deficits. Objective Lab Results CBC & Chem 7: 05/06/22 09:54 05/06/22 09:54 Meds Allergies and Active Meds Allergies No Known Allergies Allergy (Verified 05/05/22 17:42) Active Meds: Active Medications Generic Name Dose Route Start Last Admin Trade Name Rigo PRN Reason Stop Dose Admin Acetaminophen 650 mg 05/05/22 17:48 Acetaminophen 325 Mg Tablet PO 05/05/23 17:47 Q6HR PRN Pain Scale 1 - 3 or fever Acetaminophen 1,000 mg 05/06/22 08:58 Acetaminophen 500 Mg Tablet PO 05/06/23 08:57 Q6H PRN Mild Pain Acetaminophen 1,000 mg 05/06/22 09:00 Acetaminophen 500 Mg Tablet PO 05/06/23 08:59 Q6H PRN Fever or Pain Al Hydrox/Mg Hydrox/Simethicone 30 ml 05/06/22 08:58 Mag Hydrox/Al Hydrox/Simeth 30 Ml Udc PO 05/06/23 08:57 Q4H PRN Epigastric distress (Non-Card) Aspirin 81 mg 05/06/22 09:00 05/06/22 09:55 Aspirin 81 Mg Tablet. PO 05/06/23 08:59 81 mg DAILY SONJA Administration Atorvastatin Calcium 10 mg 05/06/22 21:00 Atorvastatin 10 Mg Tablet PO 05/06/23 20:59 QPM SONJA Bisacodyl 10 mg 05/05/22 17:48 Bisacodyl 10 Mg Supp.Rect UT 05/05/23 17:47 DAILY PRN Constipation Bisacodyl 10 mg 05/05/22 17:48 Bisacodyl 5 Mg Tablet. PO 05/05/23 17:47 DAILY PRN Constipation Citalopram Hydrobromide 20 mg 05/05/22 22:00 05/05/22 21:20 Citalopram 20 Mg Tablet PO 05/05/23 21:59 20 mg HS SONJA Administration Diazepam 5 mg 05/05/22 19:52 Diazepam 5 Mg Tablet PO 11/01/22 19:51 Q6HR PRN Dizziness Docusate Sodium 100 mg 05/05/22 17:48 Docusate 100 Mg Capsule PO 05/05/23 17:47 BID PRN Constipation Docusate Sodium 100 mg 05/06/22 08:58 Docusate 100 Mg Capsule PO 05/06/23 08:57 QHS PRN Constipation Enoxaparin Sodium 30 mg 05/06/22 10:00 Enoxaparin 30 Mg/0.3 Ml Syringe SUBCUT 05/06/23 09:59 DAILY@1000 SONJA Gabapentin 300 mg 05/05/22 21:00 05/05/22 21:20 Gabapentin 300 Mg Capsule PO 05/05/23 20:59 300 mg QPM SONJA Administration Magnesium Sulfate 2 gm in 50 mls @ 25 mls/hr 05/05/22 17:48 Magnesium Sulf 2gm-*Swfi* IV 05/05/23 17:47 DAILY PRN Magnesium Level < 1.5 Ceftriaxone Sodium 1 gm in 50 mls @ 100 mls/hr 05/05/22 20:00 05/05/22 21:49 Rocephin IV Infused Q24H SONJA Infusion Sodium Chloride 1,000 mls @ 20 mls/hr 05/06/22 09:45 0.9% Sodium Chloride 1,000 Ml IV 05/06/23 09:44 .Q24H SONJA Gentamicin Sulfate 160 mg/ 104 mls @ 208 mls/hr 05/06/22 14:00 Sodium Chloride IV 05/06/22 14:01 PREOP ONE Vancomycin HCl 1.25 gm/ 275 mls @ 183.333 mls/hr 05/06/22 13:30 Dextrose IV 05/06/22 14:59 PREOP ONE Protocol Lisinopril 5 mg 05/06/22 09:00 05/06/22 09:55 Lisinopril 5 Mg Tablet PO 05/06/23 08:59 5 mg DAILY SONJA Administration Morphine Sulfate 4 mg 05/06/22 08:58 Morphine Sulfate 4 Mg/Ml Cartridge IV-PUSH Q20M PRN Chest Pain Nitroglycerin 0.4 mg 05/06/22 08:58 Nitroglycerin 0.4 Mg Tab.Subl SUBLINGUAL 05/06/23 08:57 Q5M PRN Chest Pain Potassium Chloride 20 meq 05/05/22 17:48 Potassium Chloride Er 20 Meq Tab.Er.Prt PO 05/05/23 17:47 DAILY PRN Hypokalemia Potassium Chloride 40 meq 05/05/22 17:48 Potassium Chloride Er 20 Meq Tab.Er.Prt PO 05/05/23 17:47 DAILY PRN Hypokalemia Saccharomyces Boulardii 250 mg 05/06/22 08:00 05/06/22 09:54 Saccharomyces Boulardii 250 Mg Capsule PO 05/06/23 07:59 250 mg BID.WITH.MEALS SONJA Administration Sodium Chloride 0 ml 05/05/22 22:00 05/06/22 06:20 Sodium Chloride 0.9 % 10 Ml Syringe IV-PUSH 05/05/23 21:59 10 ml QSHIFT SONJA Administration Sodium Chloride 10 ml 05/05/22 17:55 Sodium Chloride 0.9 % 10 Ml Syringe IV-PUSH 05/05/23 17:54 PRN PRN Flush Sodium Chloride 0 ml 05/06/22 09:40 Sodium Chloride 0.9 % 10 Ml Syringe IV-PUSH 05/06/23 09:39 PRN PRN Flush Tramadol HCl 50 mg 05/06/22 08:58 Tramadol 50 Mg Tablet PO 11/02/22 08:57 Q6H PRN Moderate Pain Triamcinolone Acetonide 1 applic 05/06/22 08:58 Triamcinolone 0.1% Cream 15 Gm Tube TOPICAL 05/06/23 08:57 QID PRN Irritation A&P - Hospitalist Assessment/Plan (1) Symptomatic bradycardia: (2) Heart block: (3) HTN (hypertension): (4) UTI (urinary tract infection): (5) NSVT (nonsustained ventricular tachycardia): (6) Takotsubo cardiomyopathy: Plan Assessment: This is a patient who presents with symptomatic bradycardia and heart block. This morning she likely had bradycardia induced ventricular tachycardia. Coronary artery evaluation was undertaken urgently and she was found to have very minimal coronary artery plaquing. A temporary pacemaker was placed. She will get a permanent pacemaker later today. Second problem is urinary tract infection which may have only been partially/non-completely treated by oral Bactrim she took at home. Plan: Continue IV fluids. Continue transvenous pacemaking that was started this morning until permanent pacemaker is placed. Cardiology can consider guideline directed beta-blockers and MANOJ inhibitor's perthe Takotsubo phenomenon, once pacemaker is in place. Documented By: José Nelson DO [id number] Signed By: <Electronically signed by José Nelson, > 05/06/22 1304 [facility] Work Phone: [phone] Consult note Author W Edi [facility] May 06, 2022 9:24am Note Date/Time May 06, 2022 9 :21am [facility] [address] [place] [address] Cardiology Consult Note Signed Patient: Roseann Dale MR#: [id number] : 1940 Acct:[id number] Age/Sex: 82 / F Adm Date: 2 Loc: Room: [address] [place] [address] Type: ADM IN Attending Dr: José Nelson DO Copies to: DO José De Luna DO W Scott Sheldon, DO~ Cardiology HPI History of Present Illness Consult Date: 05/06/22 Reason for Consult: Recurrent nonsustained VT, complete heart block HPI: Ms. Dale is a 82 year old female seen in emergent interventional cardiology consultation at request of Dr. Islas the patient who presented last eveningfeeling very poorly with symptomatic bradycardia and recurrent nonsustained VT. Patient is otherwise a healthy 82-year-old female who works out on a regular basis, walks 1 mile daily, lifts weights at [employer], has no prior historyof myocardial infarction, revascularization, stroke, thromboembolic or bleeding disorder. Patient was going in and out of nonsustained VT this morning with underlying complete heart block that was palliated successfully with magnesium sulfate. Past medical history is noted for essential hypertension, medications are noted for amlodipine, furosemide and lisinopril, sulfamethoxazole/trimethoprim. ECG revealed complete heart block with mild anterior ST elevation injury currentwith concern for STEMI however patient was not complaining of any clinical angina. QT interval was slightly prolonged Case discussed with Dr. Islas, ECGs reviewed; we will proceed with emergentcatheterization and probable temporary pacemaker placement and discussed with electrophysiology this morning. Review of Systems Review of Systems All other systems reviewed & are negative unless noted below or in HPI PMFSH Vaccinated for COVID-19?: Yes Medical History (Updated 05/06/22 @ 09:24 by Chandu Daley DO) Cataracts, bilateral High triglycerides Hip dislocation, right HTN (hypertension) Myasthenia gravis Surgical History (Updated 05/05/22 @ 19:40 by José Nelson DO) H/O thymectomy History of bowel resection History of hysterectomy History of right hip replacement Hx of appendectomy Social History Smoking Status: Never smoker Meds Medications and Allergies Allergies No Known Allergies Allergy (Verified 05/05/22 17:42) Home Medications amlodipine 5 mg tablet 5 mg PO DAILY 05/05/22 [History Confirmed 05/05/22] citalopram 20 mg tablet 20 mg PO HS 05/05/22 [History Confirmed 05/05/22] diazepam 5 mg tablet 5 mg PO Q6HR PRN Dizziness 05/05/22 [History Confirmed 05/05/22] furosemide 40 mg tablet 40 mg PO DAILY 05/05/22 [History Confirmed 05/05/22] gabapentin 300 mg capsule 300 mg PO DAILY 05/05/22 [History Confirmed 05/05/22] lisinopril 30 mg tablet 30 mg PO DAILY 05/05/22 [History Confirmed 05/05/22] ondansetron 4 mg disintegrating tablet 4 mg PO Q6H PRN Nausea And Vomiting 05/05/22 [History Confirmed 05/05/22] potassium chloride 20 mEq tablet,extended release 20 meq PO DAILY 05/05/22 [History Confirmed 05/05/22] sulfamethoxazole 800 mg-trimethoprim 160 mg tablet 800 tab PO TID 05/05/22 [History Confirmed 05/05/22] tramadol 50 mg tablet 50 mg PO Q6HR PRN Pain 05/05/22 [History Confirmed 05/05/22] Exam Physical Exam Vital Signs: Temp Pulse Resp BP Pulse Ox O2 Del Method O2 Flow Rate 97.9 F 44 L 16 137/54 L 92 L Nasal Cannula 3 05/06/22 07:11 05/06/22 07:11 05/06/22 07:11 05/06/22 07:11 05/06/22 07:11 05/06/22 07:11 05/06/22 07:11 Const General: cooperative, healthy appearing, comfortable and no acute distress Nutritional Appearance: average body habitus Orientation: alert, awake and oriented x3 HEENT Head: normal to inspection Eyes General: appearance normal, both eyes and all related structures Neck Neck: normal visual inspection Chest Chest palpation & inspection: normal inspection of the chest Resp Effort & Inspection: normal respiratory effort Auscultation: clear to auscultation bilaterally Cardio Rate: bradycardic Rhythm: abnormal rhythm Heart Sounds: S1 normal and S2 normal GI Palpation: soft Skin General: no rashes or lesions noted Neuro General: patient alert, patient awake and patient oriented x3 Cognition: normal cognition Speech: speech normal Extrem General: no clubbing, cyanosis or edema Results Labs CBC & CMP: 05/06/22 08:04 05/06/22 08:04 Lab results: Cardiac Enzymes 05/05/22 Range/Units 18:33 B-Natriuretic Peptide 1340.0 H (5-100) pg/mL CBC 05/05/22 05/06/22 05/06/22 Range/Units 18:33 05:10 08:04 RBC 3.96 3.93 4.03 (3.60-5.00) X10E6/uL Hgb 11.4 L 11.4 L 11.6 L (11.8-15.4) g/dL Hct 35.4 35.1 36.1 (34.0-46.4) % Plt Count 166 161 180 (150-450) x10E3/uL Neut # (Auto) 4.8 4.4 6.1 (1.8-7.7) x10E3/uL Lymph # (Auto) 1.5 1.9 2.1 (1.00-4.8) x10E3/uL [place] # (Auto) 0.5 0.6 0.7 (0.0-0.8) x10E3/uL Eos # (Auto) 0.0 0.1 0.0 (0.0-0.45) x10E3/uL Baso # (Auto) 0.1 0.0 0.1 (0.0-0.2) x10E3/uL Comprehensive Metabolic Panel 05/05/22 05/06/22 05/06/22 Range/Units 18:33 05:10 08:04 Sodium 135 L 134 L 134 L (136-146) mmol/L Potassium 4.3 4.2 4.4 (3.5-5.1) mmol/L Chloride 98 99 100 (95-114) mmol/L Carbon Dioxide 26.2 26.9 24.9 (22.0-30.0) mmol/L BUN 19 21 21 (9-23) mg/dL Creatinine 1.33 H 1.28 H 1.24 H (0.44-1.03) mg/dL Glucose 128 H 132 H 164 H (70-100) mg/dL Calcium 8.5 8.6 8.7 (8.2-10.2) mg/dL Intake and Output 05/05/22 05/06/22 05/06/22 23:59 07:59 15:59 Intake Total 350 / 350 0 / 0 Balance 350 / 350 0 / 0 Intake: IV 50 / 50 cefTRIAXone 1GM-*NS* 1 gm In 50 50 / 50 ml @ 100 mls/hr IV Q24H SONJA Rx #:[id number] Oral 300 / 300 0 / 0 Other: # Unmeasured Voids 1 1 Weight 73.6 kg 77.5 kg Date of Last Bowel Movement 05/05/22 05/05/22 Patient Weight 05/06/22 23:59 Weight 77.5 kg Lab 05/05/22 18:33 PT 11.9 INR 1.1 APTT 22.5 L EKG Interpretations Blocks, axis, hypertrophy, ST abn AV and intraventricular conduction: complete (3) AV block A&P - Cardiology (1) HTN (hypertension): Code(s): I10 - Essential (primary) hypertension (2) Symptomatic bradycardia: Code(s): R00.1 - Bradycardia, unspecified (3) NSVT (nonsustained ventricular tachycardia): Code(s): I47.29 - Other ventricular tachycardia (4) UTI (urinary tract infection): Code(s): N39.0 - Urinary tract infection, site not specified (5) Heart block: Code(s): I45.9 - Conduction disorder, unspecified (6) Non-ST elevation myocardial infarction (NSTEMI), initial care episode: Code(s): I21.4 - Non-ST elevation (NSTEMI) myocardial infarction Documented By: Chandu Daley DO 05/06/2214 Signed By: <Electronically signed by Chandu Daley DO> 05/06/22 0924 [facility] Work Phone: [phone] 580-361112-02-2022 [facility] History and physical note Author José Nelson [facility] May 05, 2022 7:52pm Note Date/Time May 05, 2022 7 :44pm [facility] [address] [place] [address] Hospitalist H&P Signed Patient: Roseann Dale MR#: [id number] : 1940 Acct:[id number] Age/Sex: 82 / F Adm Date: 2 Loc: Room: [address] [place] [address] Type: ADM IN Attending Dr: José Nelson DO Copies to: Blue Navarro,DO José Nelson, DO~ HPI DATE OF EXAMINATION: 05/05/22 CHIEF COMPLAINT: dyspnea, diaphoresis, slow heart rate. HISTORY OF PRESENT ILLNESS: This is an 82-year-old female who had been feeling unwell for the last couple days and went to an outside hospital emergency room where severe bradycardia wasdetected. She tells me that a nurse in that ER was able to determine by looking at the patient's apple iWatch that she had been bradycardic since March. The patientsays that she is really only been symptomatic of this over the last few days. She has been having some more fatigue and some dyspnea. She had not noticed anypalpitations. She has been treating herself for urinary tract infection with Bactrim for the last week and has about 3 pills left and felt the Bactrim was part of what is making her feel unwell. She feels that her urinary tract infection is not fully treated at this time as she would expect. Her family thought that she sounded not right talking to her on the phone yesterday and then today the patient began having profound diaphoresis and just feeling very tired and nothing that she could do would get her self to feel better so she presented to the emergency room. Reports indicate that when she first got to the emergency room her heart rate was in the 30s. They saw heart rates in the 40s. She was treated with a dose of IV Lasix. Labs available from the outside hospital showed normal coagulation studies with a PTT of 26.9, pro time of 11.0, INR of 1.02. NT proBNP was elevated at 5347. High-sensitivity troponin was elevated at 169.8. Sodium was 135, potassium 3.7,BUN 21, creatinine 1.43, glucose elevated at 243. Complete blood count was normal with white blood cells 8.9 and hemoglobin 12.2 and platelets 187. There isan EKG on the chart from the outside hospital where the heart rate was 48. There is some noise underneath but I think that the patient was in a second-degree type II heart block. A twelve-lead EKG done here at this hospital shows a heart rate of 47 bpm. Looking at the athletic monitor and I believe that most the time she is in a second-degree type II but there is times when the stretches out and it looks like it may be the beginning of a third-degree heart block. She is not having any significant dropped beats or any significant pauses on the telemetry monitoring while I am watching it. The patient was told by the outside ER that she likely would require a pacemaker. She is normally fairly active. Despite needing to use a walker because of 2 hipreplacements in the past she says that she ambulates without walker for 1 mile aday and then also exercises on an elliptical. She stopped doing that level of exercise a week or so ago because of the urinary tract infection. Review of Systems Review of Systems Review of systems: 10 systems are reviewed and are negative except as mentioned elsewhere in the documentation. Social history: She does state that she did smoke for 2 years but that was over 50 years ago. She only drinks alcohol very rarely on social occasions. 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 Family history: The patient states that mostly osteoarthritis in the knee and hip for Unseld on her siblings. Does not seem to be any cardiac disease. Her mother from lung cancer, although the patient's mother did not smoke. The patient's father of an intracranial hemorrhage at the young age of 62. [facility] Vaccinated for COVID-19?: Yes Medical History (Updated 05/05/22 @ 19:49 by José Nelson DO) Cataracts, bilateral High triglycerides Hip dislocation, right HTN (hypertension) Myasthenia gravis Surgical History (Updated 05/05/22 @ 19:40 by José Nelson DO) H/O thymectomy History of bowel resection History of hysterectomy History of right hip replacement Hx of appendectomy Social History Smoking Status: Never smoker Meds Medications and Allergies Allergies No Known Allergies Allergy (Verified 05/05/22 17:42) Home Medications amlodipine 5 mg tablet 5 mg PO DAILY 05/05/22 [History Confirmed 05/05/22] citalopram 20 mg tablet 20 mg PO HS 05/05/22 [History Confirmed 05/05/22] diazepam 5 mg tablet 5 mg PO Q6HR PRN Dizziness 05/05/22 [History Confirmed 05/05/22] furosemide 40 mg tablet 40 mg PO DAILY 05/05/22 [History Confirmed 05/05/22] gabapentin 300 mg capsule 300 mg PO DAILY 05/05/22 [History Confirmed 05/05/22] lisinopril 30 mg tablet 30 mg PO DAILY 05/05/22 [History Confirmed 05/05/22] ondansetron 4 mg disintegrating tablet 4 mg PO Q6H PRN Nausea And Vomiting 05/05/22 [History Confirmed 05/05/22] potassium chloride 20 mEq tablet,extended release 20 meq PO DAILY 05/05/22 [History Confirmed 05/05/22] sulfamethoxazole 800 mg-trimethoprim 160 mg tablet 800 tab PO TID 05/05/22 [History Confirmed 05/05/22] tramadol 50 mg tablet 50 mg PO Q6HR PRN Pain 05/05/22 [History Confirmed 05/05/22] Exam Physical Exam Vital Signs: Temp Pulse Resp BP Pulse Ox O2 Del Method O2 Flow Rate 97.9 F 44 L 16 132/58 L 97 Nasal Cannula 2 05/05/22 18:14 05/05/22 18:14 05/05/22 18:14 05/05/22 18:14 05/05/22 18:14 05/05/22 18:33 05/05/22 18:33 Narrative: GEN: Awake, alert, oriented x 3. She is able to walk from the toilet to the hospital bed with the assistance of her daughter. Her gait is slowed mostly due to severe right hip osteoarthritis changes. She does look moderately uncomfortable with shortness of breath while walking but then recovers following comfortably in bed. Head: Normal Cephalic, Atraumatic. Eyes: Conjunctiva and sclera clear bilaterally. Nose: External nose and nares normal bilaterally. Mouth: Lips and tongue normal. Neck: No JVD. No thyromegaly. No lymphadenopathy. Lungs: Clear to auscultation bilaterally, no wheezing. Does have moderate diminished breath sounds in the bases bilaterally. Heart: Bradycardic. Resting heart rate is about 45 bpm. I do not hear any rubsor gallops. On the monitor most of this time and this looks like a second-degree type II but occasionally there is features where things slow down and it looks briefly like a third-degree heart block. She has no dropped beats or prolonged periods of bradycardia that I see on the monitor so far. Abdomen: Soft, normal bowel sounds, no rigidity, guarding, or acute peritoneal signs. Extremities: No swelling or cords in the calves bilaterally, mild edema in the ankles bilaterally (right chronically more than left.) Skin: No systemic rashes or lesions. Psychiatric: Calm. Conversant. Cooperative. Neuro: Awake, Alert, and Oriented x 3. No focal or lateralizing deficits. Results Lab Results Labs: Laboratory Last Values Corrected WBC 6.8 X10E3/uL (3.8-11.6) 05/05/22 18:33 Uncorrected WBC Count 6.8 x10E3/uL (3.8-11.6) 05/05/22 18:33 RBC 3.96 X10E6/uL (3.60-5.00) 05/05/22 18:33 Hgb 11.4 g/dL (11.8-15.4) L 05/05/22 18:33 Hct 35.4 % (34.0-46.4) 05/05/22 18:33 MCV 89.4 fl (80-100) 05/05/22 18:33 MCH 28.8 pg (24.7-34.3) 05/05/22 18:33 MCHC 32.3 g/dL (32.0-35.0) 05/05/22 18:33 RDW 14.0 % (11.9-15.3) 05/05/22 18:33 Plt Count 166 x10E3/uL (150-450) 05/05/22 18:33 MPV 9.1 fl (6.3-10.7) 05/05/22 18:33 Neut % (Auto) 70.4 % (.) 05/05/22 18:33 Lymph % (Auto) 21.6 % (.) 05/05/22 18:33 [place] % (Auto) 6.9 % (.) 05/05/22 18:33 Eos % (Auto) 0.1 % (.) 05/05/22 18:33 Baso % (Auto) 1.0 % (.) 05/05/22 18:33 Nucleat RBC Rel Count 0.1 /100 WBC (0-0.5) 05/05/22 18:33 Neut # (Auto) 4.8 x10E3/uL (1.8-7.7) 05/05/22 18:33 Lymph # (Auto) 1.5 x10E3/uL (1.00-4.8) 05/05/22 18:33 [place] # (Auto) 0.5 x10E3/uL (0.0-0.8) 05/05/22 18:33 Eos # (Auto) 0.0 x10E3/uL (0.0-0.45) 05/05/22 18: Baso # (Auto) 0.1 x10E3/uL (0.0-0.2) 05/05/22 18: PT 11.9 Seconds (9.0-12.9) 05/05/22 18: INR 1.1 05/05/22 18: APTT 22.5 Seconds (25.1-36.5) L 05/05/22 18: PHA Creatinine Clear 30.26 05/05/22 18:33 Sodium 135 mmol/L (136-146) L 05/05/22 18:33 Potassium 4.3 mmol/L (3.5-5.1) 05/05/22 18: Chloride 98 mmol/L (95-114) 05/05/22 18: Carbon Dioxide 26.2 mmol/L (22.0-30.0) 05/05/22 18: Anion Gap 15.1 mEq/L (6.0-15.0) H 05/05/22 18:33 BUN 19 mg/dL (9-23) 05/05/22 18: Creatinine 1.33 mg/dL (0.44-1.03) H 05/05/22 18:33 Est GFR ( Amer) 46 mL/Min 05/05/22 18:33 Est GFR (Non-Af Amer) 38 mL/Min 05/05/22 18: Glucose 128 mg/dL (70-100) H 05/05/22 18: Calcium 8.5 mg/dL (8.2-10.2) 05/05/22 18: Magnesium 2.5 mg/dL (1.6-2.6) 05/05/22 18:33 B-Natriuretic Peptide 1340.0 pg/mL (5-100) H 05/05/22 18:33 A&P - Hospitalist Assessment/Plan (1) Symptomatic bradycardia: (2) Heart block: (3) HTN (hypertension): (4) UTI (urinary tract infection): Plan Assessment: This is a patient who presents with symptomatic bradycardia and concerning heartblock. She is on no medications which would seem to predispose her to bradycardia. She has no history of cardiac disease in the past that is known but has been very healthy considering her age 82 and likely never needed any cardiac work-up in the past. She had profound diaphoresis at home this morning that I think was due to supply demand mismatch of her circulation in the settingof the bradycardia. Therefore inpatient stay is required so she can be on telemetry monitoring in the stepdown unit and get close cardiology consultation. Second problem is urinary tract infection which may have only been partially treated by Bactrim. Plan: Case discussed by telephone in brief with cardiology tonight. Telemetry monitoring here overnight. N.p.o. after midnight for probable procedure in the morning. Check BNP and troponin here for baseline although I think that elevations of both of these are just due to cardiac strain in the setting of bradycardia. My concern for coronary ischemia is low given the lack of other associated symptoms. IV Rocephin for treatment for urinary tract infection which is not successfully treated with oral Bactrim at home. Home medications have been reviewed and can be continued, except I would hold amlodipine at this time since her blood pressure is acceptable and hold MANOJ inhibitor as her creatinine is elevated above her baseline. Documented By: José Nelson DO 1935 Signed By: <Electronically signed by José Nelson DO> 05/05/221951 [facility] Work Phone: [phone]) 576-754508-09-2022 NoteHNO ID: [id number] Author: Alo Lomeli MD Service: ? Author Type: Physician Type: Progress Notes Filed: 01/11/2022 11:01 AM Note Text: 1 year postop Right hip revision for dislocation doing great. Ambulating with a cane. No complaints and no pain. X-rays excellent and I counseled her on her activities and we will see her back as needed. Alo Lomeli, [facility]08-09-2022 NoteHNO ID: [id number] Author: RT Mirna(Aleshia) Service: ? Author Type: Technologist Type: Progress Notes Filed: 01/11/2022 10:54 AM Note Text: Radiology Service Progress Note PATIENT NAME: Roseann Dale DATE OF SERVICE: January 11, 2022 TIME: 10:54 AM PATIENT IDENTITY VERIFICATION COMPLETED USING TWO (2) IDENTIFIERS: Name and Date of confirmed by patient verbally. FALL SCREENING: Has the patient had 2 falls in the last year or 1 fall with injury or currently using an Ambulatory Assistive Device (Walker, Cane, Wheelchair, Crutches, etc.)? No PATIENT GENDER DATA: Female. status: : No status: NO. PATIENT RELEVANT IMPLANT DATA REVIEWED: Not Applicable RADIOLOGY DEPARTMENT: General X-ray: Exam(s) Completed: Pelvis X-Ray: Pelvis with Hip Right PERIPHERAL IV DATA: Not applicable SIGNED BY: RT Mirna(R) January 11, 2022 10:54 [facility]08-09-2022 History of Present illness Narrative* Alo Lomeli MD - 01/11/2022 10:47 AM EDT 1 year postop Right hip revision for dislocation doing great. Ambulating with a cane. No complaintsand no pain. X-rays excellent and I counseled her on her activities and we will see her back as needed. Alo Lomeli MD [facility] [place] History of Present illness Narrative* Landon Greene RT(R) - 01/11/2022 10:10 AM EDT Radiology Service Progress Note PATIENT NAME: Roseann Dale DATE OF SERVICE: January 11, 2022 TIME: 10:54 AM PATIENT IDENTITY VERIFICATION COMPLETED USING TWO (2) IDENTIFIERS: Name and Date of confirmedby patient verbally. FALL SCREENING: Has the patient had 2 falls in the last year or 1 fall with injury or currently using an Ambulatory Assistive Device (Walker, Cane, Wheelchair, Crutches, etc.)? No PATIENT GENDER DATA: Female. status: : No status: NO. PATIENT RELEVANT IMPLANT DATA REVIEWED: Not Applicable RADIOLOGY DEPARTMENT: General X-ray: Exam(s) Completed: Pelvis X-Ray: Pelvis with Hip Right PERIPHERAL IV DATA: Not applicable SIGNED BY: RT Mirna(R) January 11, 2022 10:54 AM documented in this encounterKing[facility] [place]-2022 NoteHNO ID: [id number] Author: Alo Lomeli MD Service: ? Author Type: Physician Type: Progress Notes Filed: 07/27/2021 11:34 AM Note Text: 5 months postop right hip revision for dislocation continues to do well. No complaints and no pain. X-rays are excellent and I counseled her on her activities and we will see her in February with an x-ray right hip. Alo Lomeli, [facility]02-22-2022 NoteHNO ID: [id number] Author: RT Mirna(R) Service: ? Author Type: Technologist Type: Progress Notes Filed: 07/27/2021 11:42 AM Note Text: Radiology Service Progress Note PATIENT NAME: Roseann Dale DATE OF SERVICE: July 27, 2021 TIME: 11:42 AM PATIENT IDENTITY VERIFICATION COMPLETED USING TWO (2) IDENTIFIERS: Name and Date of confirmed by patient verbally. FALL SCREENING: Has the patient had 2 falls in the last year or 1 fall with injury or currently using an Ambulatory Assistive Device (Walker, Cane, Wheelchair, Crutches, etc.)? No PATIENT GENDER DATA: Female. status: : No status: NO. PATIENT RELEVANT IMPLANT DATA REVIEWED: Not Applicable RADIOLOGY DEPARTMENT: General X-ray: Exam(s) Completed: Pelvis X-Ray: Pelvis with Hip Right PERIPHERAL IV DATA: Not applicable SIGNED BY: RT Mirna(R) July 27, 2021 11:42 [facility]02-22-2022 History of Present illness Narrative* Lanodn Greene RT(R) - 07/27/2021 11:00 AM EST Radiology Service Progress Note PATIENT NAME: Roseann Dale DATE OF SERVICE: July 27, 2021 TIME: 11:42 AM PATIENT IDENTITY VERIFICATION COMPLETED USING TWO (2) IDENTIFIERS: Name and Date of confirmedby patient verbally. FALL SCREENING: Has the patient had 2 falls in the last year or 1 fall with injury or currently using an Ambulatory Assistive Device (Walker, Cane, Wheelchair, Crutches, etc.)? No PATIENT GENDER DATA: Female. status: : No status: NO. PATIENT RELEVANT IMPLANT DATA REVIEWED: Not Applicable RADIOLOGY DEPARTMENT: General X-ray: Exam(s) Completed: Pelvis X-Ray: Pelvis with Hip Right PERIPHERAL IV DATA: Not applicable SIGNED BY: RT Mirna(R) July 27, 2021 11:42 AM documented in this encounterKing[facility] [place]11-23-2021 NoteHNO ID: [id number] Author: Alo Lomeli MD Service: ? Author Type: Physician Type: Progress Notes Filed: 04/27/2021 9:15 AM Note Text: Postop right hip revision for dislocation doing well. X-rays are excellent and I counseled her on her activities and we will see her back for an x-ray right hip in 3 months. Alo Lomeli, [facility]11-23-2021 NoteHNO ID: [id number] Author: RT Arielle(R) Service: Radiology Author Type: Technologist Type: Progress Notes Filed: 04/27/2021 8:32 AM Note Text: Radiology Service Progress Note PATIENT NAME: Roseann Dale DATE OF SERVICE: April 27, 2021 TIME: 8:31 AM PATIENT IDENTITY VERIFICATION COMPLETED USING TWO (2) IDENTIFIERS: Name and Date of confirmed by patient verbally. FALL SCREENING: Has the patient had 2 falls in the last year or 1 fall with injury or currently using an Ambulatory Assistive Device (Walker, Cane, Wheelchair, Crutches, etc.)? No PATIENT GENDER DATA: Female. status: : No status: NO. PATIENT RELEVANT IMPLANT DATA REVIEWED: Yes RADIOLOGY DEPARTMENT: General X-ray: Exam(s) Completed: Pelvis X-Ray: Pelvis with Hip Right PERIPHERAL IV DATA: Not applicable SIGNED BY: RT Arielle(R) April 27, 2021 8:31 [facility]11-23-2021 History of Present illness Narrative* Brea Martinez RT(R) - 04/27/2021 8:30 AM EST Radiology Service Progress Note PATIENT NAME: Roseann Dale DATE OF SERVICE: April 27, 2021 TIME: 8:31 AM PATIENT IDENTITY VERIFICATION COMPLETED USING TWO (2) IDENTIFIERS: Name and Date of confirmedby patient verbally. FALL SCREENING: Has the patient had 2 falls in the last year or 1 fall with injury or currently using an Ambulatory Assistive Device (Walker, Cane, Wheelchair, Crutches, etc.)? No PATIENT GENDER DATA: Female. status: : No status: NO. PATIENT RELEVANT IMPLANT DATA REVIEWED: Yes RADIOLOGY DEPARTMENT: General X-ray: Exam(s) Completed: Pelvis X-Ray: Pelvis with Hip Right PERIPHERAL IV DATA: Not applicable SIGNED BY: RT Arielle(Aleshia) April 27, 2021 8:31 AM documented in this encounterKing[facility] [place]10-[facility]-2021 NoteHNO ID: [id number] Author: RT Guzmán (R) Service: ? Author Type: Technologist Type: Progress Notes Filed: 03/30/2021 11:39 AM Note Text: Radiology Service Progress Note PATIENT NAME: Roseann Dale DATE OF SERVICE: March 30, 2021 TIME: 11:38 AM PATIENT IDENTITY VERIFICATION COMPLETED USING TWO (2) IDENTIFIERS: Name and Date of confirmed by patient verbally. FALL SCREENING: Has the patient had 2 falls in the last year or 1 fall with injury or currently using an Ambulatory Assistive Device (Walker, Cane, Wheelchair, Crutches, etc.)? No PATIENT GENDER DATA: Female. status: : No status: NO. PATIENT RELEVANT IMPLANT DATA REVIEWED: Yes RADIOLOGY DEPARTMENT: General X-ray: Exam(s) Completed: Pelvis X-Ray: Pelvis General AP PERIPHERAL IV DATA: Not applicable SIGNED BY: Brea Nelsonjulee RT(R) March 30, 2021 11:38 [facility]10-26-2021 NoteHNO ID: [id number] Author: Alo Lomeli MD Service: ? Author Type: Physician Type: Progress Notes Filed: 03/30/2021 10:25 AM Note Text: 7 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 Doing well. Wound is healed. X-rays today are stable. She has an MDM liner. She has been wearing an immobilizer. She can start to wean out of it. I will see her back with an x-ray right hip in a month. Alo Lomeli, [facility]10-05-2021 NoteHNO ID: [id number] Author: Alo Lomeli MD Service: ? Author Type: Physician Type: Progress Notes Filed: 03/09/2021 12:00 PM Note Text: Post hip revision doing well. Wearing the brace. Surgery was a month ago. Wound is healed sutures removed. No calf complaints. X-rays are excellent. Pleased with her progress and I will see her back in 2 weeks with an x-ray right hip and then we will start to wean her out of the immobilizer. Alo Lomeli, [facility]10-05-2021 NoteHNO ID: [id number] Author: Landon Greene RT(R) Service: ? Author Type: Technologist Type: Progress Notes Filed: 03/09/2021 10:46 AM Note Text: Radiology Service Progress Note PATIENT NAME: Roseann Dale DATE OF SERVICE: March 09, 2021 TIME: 10:45 AM PATIENT IDENTITY VERIFICATION COMPLETED USING TWO (2) IDENTIFIERS: Name and Date of confirmed by patient verbally. FALL SCREENING: Has the patient had 2 falls in the last year or 1 fall with injury or currently using an Ambulatory Assistive Device (Walker, Cane, Wheelchair, Crutches, etc.)? No PATIENT GENDER DATA: Female. status: : No status: NO. PATIENT RELEVANT IMPLANT DATA REVIEWED: Not Applicable RADIOLOGY DEPARTMENT: General X-ray: Exam(s) Completed: Pelvis X-Ray: Pelvis with Hip Right PERIPHERAL IV DATA: Not applicable SIGNED BY: RT Mirna(R) March 09, 2021 10:45 [facility]09-13-2021 NoteAdmission Information Admitting Physician - Yaa SOTO DO Hospital Course 81-year-old female admitted to the hospital after fall at home leading to dislocation of her right hip. Patient is status post right total hip arthroplasty done at [facility] in [place] [facility] in 01/22/2021. Reduction in the ED was successful and verified by x-ray; patient was admitted to the hospital for further observation. Dr. Alo Lomeli orthopedic physician's office was noted fine and I did speak to Neha VENEGAS who is Dr. Vance's office nurse. She did speak to Dr. Lomeli with recommendations for patient to be weightbearing as tolerated and to wear knee immobilizer when out of bed. Patient was seen by PT/OT who recommended long term rehab after discharge. During hospitalization patient's pain has been controlled with current pain regimen. Vitals and labs have been stable. Patient will discharge to skilled rehab in stable condition. She will follow with her orthopedic surgeon next week. Anuj with Dr. Zhang who is in agreement current discharge plan. Physical Exam General: alert, no acute distress Skin: warm, dry Head: no trauma, normocephalic Neck: Trachea midline, no adenopathy, no tenderness Eye: normal conjunctiva, sclera clear ENMT: oral mucosa moist, no pharyngeal erythema or exudate. hearing grossly intact Cardiovascular: regular rate and rhythm, no murmur/gallop/rub Respiratory: Lungs CTA, respirations non labored , no w/r/r Gastrointestinal: Positive bowel sound, soft, non distended, no tenderness, no guarding. Extremities: Right knee immobilizer present, right toes neurovascularly intact, minimal soreness atright hip with palpation Osteopathic: Deferred due to being noncontributory to current case. Neurological: oriented x 4, LOC appropriate for age, CN II-XII intact, motor strength equal & normal bilaterally, sensation equal & normal bilaterally, speech normal Psychiatric: cooperative, affect appropriate for age, normal judgement, normal psychiatric thoughts. (01/31/2021 18:44 EDT XR Hip 1 View Right) * Final Report * Reason For Exam Other (please specify) POWERSCRIBE REPORT IMPRESSION: SUCCESSFUL REDUCTION OF THE DISLOCATED THE RIGHT HIP JOINT. CLINICAL HISTORY: Post reduction COMPARISONS: AP PELVIS ON 01/31/2021 4:32 PM FINDINGS: AP view of the right hip was obtained by portable technique. The dislocated prosthetic right hip joint was successfully reduced. There is no acute fracture. There is soft tissue contusion along the lateral aspect of the right proximal femur. Signature Line FINAL REPORT Dictated: 02/01/2021 8:14 am Elijah Devi M.D. Signed (Electronic Signature): 02/01/2021 8:14 am Signed by: Elijah Devi M.D. Transcribed by: KASSIE Technologist: BONNY RIVERA This document has an image Result type: XR Hip 1 View Right Result date: January 31, 2021 18:44 EDT Result status: Auth (Verified) Result title: XR Hip 1 View Right Performed by: Elijah Devi M.D. on February 01, 2021 8:14 EDT Verified by: Elijah Devi M.D. on February 01, 2021 8:14 EDT Encounter info: [id number], Tariq Lemon [place], Observation, 01/31/2021 - 02/02/2021 [1] (01/31/2021 16:39 EDT XR Pelvis 1 or 2 Views) * Final Report * Reason For Exam Hip Replacement POWERSCRIBE REPORT IMPRESSION: SUPERIORLY AND POSTERIORLY DISLOCATED RIGHT PROSTHETIC FEMORAL HEAD. CLINICAL HISTORY: Hip Replacement COMPARISON: None. FINDINGS: Supine AP film of the pelvis demonstrates posterior superior dislocation of the right prosthetic femoral head on right acetabulum. There is no obvious fracture. There is mild degenerative osteoarthritis of the left hip joint. Bony pelvis is unremarkable. There is suggestion of contusion along the lateral aspect of the right proximal femur. Signature Line FINAL REPORT Dictated: 02/01/2021 7:41 am Elijah Devi M.D. Signed (Electronic Signature): 02/01/2021 7:41 am Signed by: Elijah Devi M.D. Transcribed by: KASSIE Technologist: BONNY RIVERA This document has an image Result type: XR Pelvis 1 or 2 Views Result date: January 31, 2021 16:39 EDT Result status: Auth (Verified) Result title: XR Pelvis 1 or 2 Views Performed by: Elijah Devi M.D. on February 01, 2021 7:41 EDT Verified by: Elijah Devi M.D. on February 01, 2021 7:41 EDT Encounter info: [id number], Tariq Silver, Observation, 01/31/2021 - 02/02/2021 [2] Discharge Plan Discharge Date/Time:02/02/2021 14:30 1. Unspecified dislocation of right hip, initial encounter (S73.004A: Unspecified dislocation of right hip, initial encounter) -Status post closed reduction in the emergency department. Well-tolerated. -Pt is s/p right total hip arthroplasty done at [facility] on 01/22/2021; I did call and speak to Dr.Kim Lomeli orthopedic office and spoke to Neha VENEGAS; Per Dr.Stearns guerrero (more content not included)...[facility] HospitalComment on above:Result Comment: Electronically Signed By: Kristie ROMERO\.br\Date and Time Signed: 02/04/21 12:03 EDT\.br\Electronically Co-Signed By: Nancy ZHANG MD\.br\Date and Time Co-Signed: 02/15/2109:06 [id number] NoteHNO ID: [id number] Author: Fernando Vazquez MD Service: General Internal Medicine Author Type: Physician Type: Progress Notes Filed: 02/11/2021 2:58 PM Note Text: Updated medicine progress note: Chest x-ray reviewed. Findings most likely represent atelectasis. Oxygen requirements have diminished throughout the day. Patient is stable for discharge. I recommend follow-up chest x-ray in 1 week or sooner if symptoms should dictate. Encourage incentive spirometry. Fernando Vazquez MDMercy Health Lorain [id number] NoteHNO ID: [id number] Author: Lexa Bocanegra MD Service: Orthopaedic Surgery Author Type: Resident Type: Progress Notes Filed: 02/11/2021 7:11 AM Note Text: ORTHOPAEDIC SURGERY PROGRESS NOTE A/P: 81 year old female s/p R revision LELAND to MDM head and liner on 02/[address] Lomeli. - Antibiotics: Vanc / Acnef x 24 hours perioperatively. Doxy postop x 14 days. - Anticoagulation: SCDs, Lovenox 40 - Activity: WBAT on operative leg, posterior precautions - Analgesia: PO and IV breakthrough - Dressing: Silver occlusive dressing - Diet: Reg - MIVF LR; HLIV when tolerating sufficient PO - Jean: Nursing Driven Jean Protocol - PT/OT/CM consults - Appreciate Medicine co-management and recommendations - Dispo: Pt to DC Home pending PT/OT and Medicine clearance today Rounding: Subjective No overnight issues. Pain well controlled. AFVSS. Objective Blood pressure (!) 113/49, pulse 67, temperature 36.5 ?C (97.7 ?F), temperature source Oral, resp. rate 16, height 160 cm (5' 3 ), weight 73 kg (161 lb), SpO2 98 %. Physical Exam AAOx3, NAD Breathing comfortably at rest RRR to peripheral palpation Right Lower Extremity: - Dressing: Silver to R hip c/d/i - Motor: 5/5 ankle PF/DF/EHL - Sensory: SILT throughout s/s/sp/dp/t - Compartments soft and compressible - 2+ DP/PT pulses, CR<2s Labs: CBC: Recent Labs 02/11/21 0406 WBC 6.65 HB 10.3* HCT 34.5* PLT 241 MCV 98.0 RDWCV 13.1 COAG: No results for input(s): APTT, INR in the last 168 hours. BMP: Recent Labs 02/11/21 0406 GLUC 119* NA 139 K 4.4 CHLOR 101 CO2 30 ANION 8* BUN 15 CREAT 0.78 CHEM: Recent Labs 02/11/21 0406 CA 8.2* URINALYSIS:No results for input(s): PH, SPGR, UGLUC, UBILI, UKET, UHB, UPROT, UROBIL, UWBC, SSA in the last 168 hours. Invalid input(s): NITR CRP: No results found for: CRP ESR: No results found for: WSR Please scroll above for Assessment AND Plan. -- Lexa Bocanegra MD Resident Physician PGY-4 Orthopaedic Surgery Cell / Pager: [phone] [id number] NoteHNO ID: [id number] Author: JOSEPH Ash Service: Anesthesiology Author Type: Crop Duster Helper Type: Anesthesia Procedure Notes Filed: 02/10/2021 2:57 PM Note Text: ANESTHESIOLOGY PROCEDURE NOTE Spinal Block General Information Procedure Start Time/Medication Administration: 02/10/2021 2:17 PM Procedure End time: 02/10/2021 2:23 PM Patient location during procedure: pre-op Timeout Performed Pre-procedure: timeout performed Consent Obtained: Yes Patient identity confirmed: arm band and patient Reason for Block: primary surgical anesthetic Staffing Anesthesiologist: Smita Bonilla MD Resident: Keyona Brasher MD Performed by: resident and anesthesiologist Preparation Sterility Preparation: hand hygiene performed prior to procedure, surgical cap used, mask used, sterile drape used during line insertion, skin prep agent completely dried prior to procedure Site Prep: Duraprep Procedure Details Patient Position: left lateral decubitus Ultrasound Guided: No Monitoring: Pulse Ox, EKG and NIBP Approach: Right paramedian Location: L3-4 Injection Technique: single-shot Needle Needle Type: pencil-tip Needle Gauge: 25 G Needle Length: 3.5 in Assessment Events: tolerated well Medications Administered FentaNYL 50 mcg/mL injection (SUBLIMAZE) (Spinal), 20 mcg bupivacaine-dextrose 0.75 % (7.5 mg/mL) injection (SENSORCAINE MPF SPINAL), 2 mL fentaNYL 50 mcg/mL injection (SUBLIMAZE) (IV), 30 mcg SIGNATURE: Keyona Brasher MD PATIENT NAME: Roseann Dale DATE: February 10, 2021 TIME: 2:29 PM CSN: [id number] NotePT Evaluation completed with an AmPAC score of 17/24. Pt currently requires Min A for bed mobility and CGA to transfer. Pt able to ambulate 12 feet with FWW. [facility] NotePT order received and pt's chart was reviewed. Will hold PT Evaluation at this time and await further clarification on pt's weight-bearing status and post-op protocol. Tariq [facility]08-30-2021 Darryl Mojica entered room at this time to discuss discharge planning. Patient is alert & involved in plan of care. Labs & diagnostics reviewed. DME discussed. PCP/insurance information verified. Contact information provided with white board updated. Observation status. LEBRON form reviewed, verbalizes understanding, signed & original copy provided. PT/OT evaluation is pending but notified patient that she most likely needs SNF. SNF quality metrics reviewed, patient prefers [facility]. Patient currently lives at home alone & states her children can transport her at discharge. She reports she is current with [facility]- referral sent to verify services. Patient declines need for CRM to call family for updates. Anticipated discharge 02/02 or 02/03. CRM to follow.[facility] HospitalComment on above:Result Comment: Electronically Signed By: Christiano VENEGAS, Galina Ramirez.imelda\Date and Time Signed: 02/01/21 09:35 [id number] NoteChief Complaint Right hip pain History of Present Illness Patient is a 81-year-old female with past medical history as noted below who comes in with above-stated chief complaint. Patient had right hip arthroplasty done at [facility] on 01/22/2021. Pain began to increase over the past 48 hours. When patient sat up this morning she felt a pop on her right hip patient was brought to ED by squad. Other than increasing pain of the right hip no prodromal symptoms. Denies any right knee or ankle pain. ED physician was unable to reach patient's surgeon. Phone consultation was made to orthopedics health consultant. Decision was madeto perform a closed reduction in the emergency department. From an orthopedic standpoint patient was instructed to use knee immobilizer and walker and to contact her physician's soon as possible. Patient is unable to care for herself with this new limitation of walker and knee immobilizer. Patient has no other focal complaints. She denies chest pain, shortness of breath, fevers, chills, nausea, vomiting, diarrhea, constipation. Review of Systems 14 Systems reviewed and negative except as noted in HPI. Physical Exam Vitals & Measurements T: 36.6 ?C (Oral) TMIN: 36.6 ?C (Oral) TMAX: 36.8 ?C (Oral) HR: 87(Apical) RR: 13 BP: 168/79 SpO2: 97% WT: 77.2 kg General: alert, no acute distress Skin: warm, dry Head: no trauma, normocephalic Neck: Trachea midline, no adenopathy, no tenderness Eye: normal conjunctiva, sclera clear ENMT: oral mucosa moist, no pharyngeal erythema or exudate. hearing grossly intact Cardiovascular: regular rate and rhythm, no murmur/gallop/rub Respiratory: Lungs CTA, respirations non labored , no w/r/r Gastrointestinal: Positive bowel sound, soft, non distended, no tenderness, no guarding. Extremities: Right knee immobilizer present, right toes neurovascularly intact, minimal soreness atright hip with palpation Osteopathic: Deferred due to being noncontributory to current case. Neurological: oriented x 4, LOC appropriate for age, CN II-XII intact, motor strength equal & normal bilaterally, sensation equal & normal bilaterally, speech normal Psychiatric: cooperative, affect appropriate for age, normal judgement, normal psychiatric thoughts. Lab Results No qualifying data available. Assessment/Plan 1. Unspecified dislocation of right hip, initial encounter (S73.004A: Unspecified dislocation of right hip, initial encounter) Status post closed reduction in the emergency department. Well-tolerated. Supportive care. Pain control as needed. Will notify patient's [facility] orthopedic surgeon of dislocation in the morning. Knee immobilizer and walker use for time being. Ordered: Initial Observation Care/Day High 70 min [id number] 2. Unable to care for self (Z78.9: Other specified health status) Patient unable to care for self with knee immobilizer and walker use. We will ask physical therapy and Occupational Therapy to evaluate patient. Ordered: Initial Observation Care/Day High 70 min 19597 3. Hypertension (I10: Essential (primary) hypertension) Hydralazine IV as needed. Resume home medications once reconciled. 4. GERD (gastroesophageal reflux disease) (K21.9: Gastro-esophageal reflux disease without esophagitis) Resume home medications once reconciled. 5. Depression (F32.9: Major depressive disorder, single episode, unspecified) Resume home medications once reconciled 6. Osteoarthritis (M19.90: Unspecified osteoarthritis, unspecified site) Resume home medications once reconciled 7. DVT prophylaxis (Z29.9: Encounter for prophylactic measures, unspecified) SCD, heparin Orders: acetaminophen, 650 mg = 2 tab(s), Tab, Oral, q6hr PRN Pain, Routine, Start date 01/31/21 21:57:00 EDT, 01/31/21 21:57:00 EDT heparin, 5,000 unit(s) = 1 mL, Injection, SubCutaneous, BID for 10 day(s), Stop date 02/11/21 8:59:00 EDT, Routine, Start date 02/01/21 9:00:00 EDT, 01/31/21 21:57:00 EDT hydrALAZINE, 10 mg = 0.5 mL, Injection, IV Push, q6hr PRN Other (see comment), Routine, Start date 01/31/21 21:57:00 EDT, 01/31/21 21:57:00 EDT ibuprofen, 800 mg = 1 tab(s), Tab, Oral, TID PRN Pain, Routine, Start date 01/31/21 21:57:00 EDT, 01/31/21 21:57:00 EDT ondansetron, 4 mg = 2 mL, Injection, IV Push, q6hr PRN Nausea, Routine, Start date 01/31/21 21:57:00 EDT, 01/31/21 21:57:00 EDT tramadol, 50 mg = 1 tab(s), Tab, Oral, q6hr PRN Pain for 7 day(s), Stop date 02/07/21 21:57:00 EDT,Routine, Start date 01/31/21 21:58:00 EDT, 01/31/21 21:58:00 EDT Ambulate with Assistance Below the Knee Intermittent Pneumatic Compression Device Consult to [employer] Principal Immobilizer Notify Provider Vital Signs Notify Provider Vital Signs Occupational Therapy Evaluate Patient, Develop a Plan of Care and Implement Plan Oxygen Protocol Physical Therapy Evaluate Patient, Develop a Plan of Care and Implement Plan Place in Status Precautions Regular Diet Resuscit (more content not included)...[facility] HospitalComment on above:Result Comment: Electronically Signed By: Yaa SOTO DO\Date and Time Signed: 02/01/21 01:27 [id number] NoteHNO ID: [id number] Author: AUDRA Horan Service: Care Management Author Type: Complaint Investigator Type: Care Mgt Progress Note Filed: 01/23/2021 11:11 AM Note Text: CARE MANAGEMENT DISCHARGE NOTE SERVICE DATE: 01/23/2021 SERVICE TIME: 11:07 AM LOS: 0 days Admission Date: 01/22/2021 DISCHARGE ARRANGEMENT (list agency and phone number) Discharge Arrangement: Home;Home Fdc Care: PT and OT. Provider Name: [facility] CAREGIVER ASSESSMENT: Caregiver is ready, willing and able to meet the patient's needs as recommended by the inter-professional team:: Yes Does the patient have an acute stroke diagnosis, or has the patient had a stroke during this admission?: No Patient's transition needs and plan for meeting these needs: Pt scheduled to discharge home with home care. HANDOFF COMMUNICATION: Handoff to: Primary Care Physician;Other Caregiver Primary Care Physician Name/Phone: Blue Navarro [phone] Other Caregiver Name/Phone: [facility] [phone] TRANSPORTATION ARRANGEMENTS: Transportation Arrangements: Car ADDITIONAL CONTACT RESOURCES: N/A Discharge Information Row Name Admission (Current) from 01/22/[address] [facility] Pt scheduled for discharge. Pt scheduled to discharge home with home care with [facility]. Summary of Care sent to PCP/FMRC. Pt received a copy of the AVS at discharge. Pt will follow up per discharge instructions. Pt will continue to utilize her wheeled walker and elevated toilet seat. There were no transportation needs at discharge. SIGNATURE: AUDRA Horan PATIENT NAME: Roseann Dale DATE: January 23, 2021 TIME: 11:07 AM PAGER/CONTACT #: [phone] NoteHNO ID: [id number] Author: Martita Barakat MD Service: Orthopaedic Surgery Author Type: Resident Type: Progress Notes Filed: 01/23/2021 9:00 AM Note Text: ORTHOPAEDIC SURGERY PROGRESS NOTE PATIENT NAME: Roseann Dale Attending: Dr. Alo Lomeli MD Hospital Day: 2 Date of Surgery: 01/22/2021 1 Day Post-Op A/P: 81 year old yo female POD1 s/p R LELAND DVT Prophylaxis: Lovenox 40mg daily starting 1999 on POD1 01/23/21 ? - Activity: WBAT - Wound: Silver dressing - Antibiotics: Completing 24 hours of perioperative Ancef then DC - Pain - PO and IV breakthrough - DVT prophylaxis - SCDs, aspirin 81 BID - HLIV when tolerating sufficient PO - Acute blood loss anemia: H/H stable ? * Discharge planning - Await PT recs --> consult today - Case Management --> assessment today - Dispo: anticipate DC to home today S: Doing well, pain well controlled, denies n/v/cp/sob VITALS: 01/22/21 2031 01/23/21 0109 01/23/21 0508 01/23/21 0806 BP: 150/62 143/56 118/54 110/63 Pulse: 81 86 81 80 Resp: 16 Temp: 36.8 ?C (98.2 ?F) 36.7 ?C (98.1 ?F) 36.7 ?C (98.1 ?F) 36.8 ?C (98.2 ?F) TempSrc: Oral Oral Oral Oral SpO2: 92% 94% 97% 93% Weight: Height: Intake/Output Summary (Last 24 hours) at 01/23/2021 0859 Last data filed at 01/23/2021 0800 Gross per 24 hour Intake 2087.5 ml Output 400 ml Net 1687.5 ml Physical Exam: * Gen: awake, alert, converses appropriately, NAD * Resp: Unlabored on RA, no wheeze * RLE: - dressing c,d,i - 5/5 PF, DF, EHL - SILT L4-S1 - 2+ PT pulse, toes wwp Labs: CBC: Recent Labs 01/23/21 0330 01/20/21 0932 WBC 5.71 5.92 HB 10.8* 13.5 HCT 35.6* 43.1 PLT 139* 195 MCV 95.2 91.9 RDWCV 12.7 12.3 COAG: No results for input(s): APTT, INR in the last 168 hours. BMP: Recent Labs 01/23/21 0330 01/20/21 0932 GLUC 134* 102* NA 138 139 K 4.1 4.0 CHLOR 102 100 CO2 29 29 ANION 7* 10 BUN 14 15 CREAT 0.73 0.66 CHEM: Recent Labs 01/23/21 0330 01/20/21 0932 CA 7.9* 9.2 URINALYSIS:No results for input(s): PH, SPGR, UGLUC, UBILI, UKET, UHB, UPROT, UROBIL, UWBC, SSA in the last 168 hours. Invalid input(s): NITR Intake/Output Summary (Last 24 hours) at 01/23/2021 0859 Last data filed at 01/23/2021 0800 Gross per 24 hour Intake 2087.5 ml Output 400 ml Net 1687.5 ml Lines, Drains, and Airways Line Peripheral 01/22/21 0713 Left Hand 20 Gauge 1 day Martita Barakat MD Orthopaedic Surgery, PGY-3 [id number] After 5PM and on weekends page [id number] Health Lorain [id number] NoteHNO ID: [id number] Author: JOSEPH Moss Service: Anesthesiology Author Type: Crop Duster Helper Type: Anesthesia Procedure Notes Filed: 01/22/2021 8:03 AM Note Text: ANESTHESIOLOGY PROCEDURE NOTE Airway General Information Procedure Start Time/Medication Administration: 01/22/2021 7:41 AM Patient location during procedure: OR Staffing Anesthesiologist: Dm Leonardo II, DO CAA: JOSEPH Moss Performed by: BENNIE student Indications and Patient Condition Preoxygenated: yes Difficult Mask: No Indications for airway management: anesthesia anesthesia circuit Method: sleep Final Airway Details Final airway type: endotracheal airway Final Endotracheal Airway: ETT Cuffed: yes Successful intubation technique: direct laryngoscopy Endotracheal tube insertion site: oral Blade: Lee Blade size: #3 ETT size (mm): 7.0 Measured from: lips Measurement (cm): 21 Placement verified by: chest auscultation and capnometry Cormack-Lehane Classification: grade IIa - partial view of glottis Number of attempts at approach: 1 Airway not difficult Comments Intubation performed by Irwin LEAL SIGNATURE: JOSEPH Moss PATIENT NAME: Roseann Dale DATE: January 22, 2021 TIME: 8:01 AM CSN: [id number] History of Past illness Narrative* Problem Noted Date Resolved Date Myasthenia gravis 01/20/2021 02/10/2021 Last Assessment & Plan: Assessment: No current treatment Monitored by PCP documented as of this encounter (statuses as of 01/07/2022) [facility]08-18-2021 History of Past illness Narrative* Problem Noted Date Resolved Date Myasthenia gravis 01/20/2021 02/10/2021 Last Assessment & Plan: Assessment: No current treatment Monitored by PCP documented as of this encounter (statuses as of 01/11/2022) [facility]08-10-2021 NoteHNO ID: [id number] Author: Alo Lomeli MD Service: ? Author Type: Physician Type: Progress Notes Filed: 01/12/2021 11:26 AM Note Text: She is here for progressive right hip and groin pain. No injury or trauma. Pain is worsened over the last several months to the point that it is affecting her quality of life. She has pain at rest and at night. She struggles to walk even across the room without pain. Takes medication without relief both ibuprofen and gabapentin. Has some back issues as well. Main pain is in her right groin.Review of systems negative for fever, weight loss, malaise, fatigue, significant headache, vision changes, hearing loss, neck swelling, cough, chest pain, shortness of breath, dyspnea on exertion, abdominal pain, nausea, vomiting, diarrhea, urinary dysfunction, upper/lower extremity numbness/tingling/weakness/edema, heat/cold intolerance On exam very antalgic gait. Right hip flexion is 70 with virtually no rotation. Negative straight leg raise. Left hip flexion 90 with rotation of 30. Neurologically intact. X-rays and MRI show advanced arthritis in the right hip with also some tearing in the anterior labrum. We discussed treatment options and I think she is an excellent candidate for a right hip replacement. I went over the risks and benefits of the procedure in great detail and all questions answered. She will give this some consideration and let us know if she would like to proceed. Alo Lomeli MD CONSULT ORTHOPAEDIC: HIP PRIMARY CARE PHYSICIAN: Blue Navarro DO REFERRING PROVIDER: Starr Green [facility] [id number] ASSESSMENT AND PLAN: Impression: Right Hip Severe Degenerative Osteoarthritis, Primary Roseann Dale has radiograph and physical exam evidence of degenerative joint disease and wishes to pursue surgery. This patient appears to have sufficient symptoms to warrant surgical intervention and is an appropriate candidate for right Primary Total Hip Arthroplasty as evidenced by six months of unsuccessful non-operative treatment as outlined in the HPI below and progressive symptoms. Progressive symptoms include: Pain impacting sleep or causing fatigue Pain effecting living situation. We had a lengthy discussion regarding the risk and benefit of surgery, the alternatives, limitations and personnel involved. These included but were not limited to infection, persistent pain, instability, nerve injury, blood clots, and medical complications. We also discussed the pre-operative course, surgery itself and rehabilitation. Ruba-operative blood management and transfusion issues were discussed, and options clearly outlined. The patient has not consented to the use of the banked allogenic blood if medically necessary. The patient has elected to schedule surgery at this time or intends to call the office with a surgical date. Shared decision making occurred while obtaining informed consent. The patient will be scheduled for a pre-operative education class at which time they will have their nasal swab completed and will be given CHG cloths along with the verbal and written instructions for their use. Patient has been instructed and has been scheduled or will call to schedule attendence in one of the total joint perioperative classes offered prior to proceeding with LELAND.. The patient has been ordered: No orders placed today. CONSULTS: Patient does not require consults for optimization at this time. ACTIVE PROBLEM LIST Right Hip Pain SUBJECTIVE CHIEF COMPLAINT: Hip Pain HPI: Roseann Dale is a 80 year old patient here for evaluation and management of Right hip pain.Roseann Dale has had progressive problems with the hip(s) constantly over the past 10 month(s) interfering with activities which include walking 2 blocks and exercise. The problem began limiting activities 1-3 years ago. Currently the pain in the joint is rated at 9 out of 10 with minimal activity. The pain is chronic and constant and is located in the right groin. The pain is described as aching. Relieving factors include no relieving factors. There is no specific incident that brought about this pain. Roseann Dale has no additional complaints. FUNCTIONAL STATUS: Do light work around the house, such as dusting or washing dishes (2.70 METs) Preoperative Ambulatory Status: Impaired Community Distances Number of Entry Steps: 2 Bedroom Location: Second floor Bathroom Location: Second floor Caregiver Assistance: Consistent/Live-In (5-7 days/wk) Home Location: [place] to 150 miles PREVIOUS TREATMENTS: Attempted Weight Loss REVIEW OF SYSTEMS: PAIN ASSESSMENT: See HPI. MUSCULOSKELETAL: See HPI. Risk Factors for Total Joint Arthroplasty (TJA) Obesity normal High: BMI > 40 Moderate: BMI 30-40 Normal: BMI < 30 Diabetes normal High: A1C > 8 Moderate: A1C 7-8 Normal: A1C < 7 Smoking normal High: Current smoker Normal: Non smo (more content not included)...[facility]07-12-2021 NoteHNO ID: [id number] Author: Starr Green APRN.REPATCHER Service: ? Author Type: Nurse Practitioner Type: Progress Notes Filed: 12/14/2020 1:07 PM Note Text: Spine Care Path Low Back Pain - Acute (0 - 6 weeks) Initial Exam SUBJECTIVE HISTORY OF PRESENT ILLNESS: Roseann Dale is a 80 year old female who presents with a chief complaint of low back and leg pain and is seen in consultation requested by SELF Patient comes in today from [facility] Patient presents with back and right leg pain for the past 6 weeks Denies accident/injury Pain localized to right low back, Right medial thigh Pain described as sharp, aching Radiation: right medial thigh intermittent Numbness/Tingling: bilateral knees down to feet Tried a cane- was too shaky. Will not use a walker Pain worse with walking Pain improved with rest, sitting back support Interventions: None Medications: tylenol prn- some help, On fosamax, valium Physical Therapy: None Treating Physicians: Dr Edwin Thomas 2016- Trochanteric bursitis and lumbar radic- rx for therapy History of Spine Injections/Surgery: None Hx: thymectomy, osteoporosis CC: back/leg pain Patient follows up s/p right IA hip injeciton on 11/12/[address] Rajan. Patient reports a couple days of improvement. 2 weeks after injection things worsened. Doesn't trust her leg. Giving out on here. Back pain somewhat improved from initial, but right leg pain has returned. Tingling in knees down to feet bilaterally - non deramatomal Losing balance and feels she is going to fall. Started on low dose gabapentin at last visit. Taking BID. Not tired. Physical therapy seeing Sean mendez at [facility] 2 x per week and feels helpful. Hx: s/p Right transforaminal epidural steroid injection at L34 on by Dr Gil. Patient reports 85% improvement in her back and right thigh pain. Other Issues Addressed at the Visit Today: None. Precipitating Event: None PAIN EVALUATION 12/14/2020 1039 Pain Level: 6 Pain Location: Back-Lower right hip Description: Sharp;Shooting Duration Amount of Time: 4 Duration Units: Years Frequency: Continuous Intervention: Medication Comments: pt reports no relief from injection on 11/12/2020; pt reports being woken up sometimes from pain; has trouble getting comfortable Litigation: No Workers' Compensation: No YELLOW AND BLUE FLAGS YES-Neg Attitude; Back Pain is Disabling No-Avoiding Activity (for Fear of Pain) YES-Depression or Anxiety Disorders No-Social Problems No-Substance Use Disorder No-Job Dissatisfaction No-Financial Disincentives Patient Entered Questionnaires Spine Questions 09/29/2020 10/22/2020 12/09/2020 Pain Location: Lower back Lower back Lower back Pain Duration: Less than 1 month - - Symptoms from neck/cervical spine: No No No Employment Status: Disabled due to back pain, permanently or temporarily - Retired Off work 1 month or more due to back/neck pain: Does not apply - - Applied for/receive disability/WC due to low back/neck pain Does not apply - - Involved in law suit/legal claim: No - No Spine Red Flags 09/29/2020 12/09/2020 Any type of cancer: No No Unexplained fever: No No Bowel or bladder disfunction: No No Unintentional weight loss: No No Osteoporosis: Yes Yes PROMIS Score Percentiles Physical Health 09/29/2020 12/09/2020 Physical Function Percentile 2 4 Sleep Percentile 54 38 Fatigue Percentile 1 8 Pain Interference Percentile 1 1 Social Health 09/29/2020 12/09/2020 Social Role Satisfaction Percentile 8 27* PROMIS Global Health Scale 09/29/2020 Physical Health Percentile 1 Mental Health Percentile 13 Percentiles provide an indication of how the patient's score ranks in relation to the general population. Higher percentile rankings indicate better function/quality of life. 50th percentile is the average of the general population and indicates half of respondents had a worse score. Depression Screening: PHQ-9 09/29/2020 12/09/2020 Score 10 9 PHQ-9 Self Harm 09/29/2020 12/09/2020 Question 9 Not at all Not at all PHQ-9 Self-Harm (Item 9) response options: 0 Not at all 1 Several days 2 More than half the days 3 Nearly every day PHQ-9 Levels: 0-4 No - mild depression 5-9 Mild depression 10-14 Moderate depression 15-19 Moderately severe depression 20-27 Severe depression ACTIVE PROBLEM LIST Right Hip Pain No past medical history on file. No past surgical history on file. Social History Tobacco Use - Smoking status: Former Smoker Quit date: 09/30/1979 Years since quittin.2 - Smokeless tobacco: Never Used Substance Use Topics - Alcohol use: Not on file - Drug use: Not on file No family history on file. ALLERGIES No Known Allergies CURRENT MEDICATIONS: gabapentin (NEURONTIN) 100 mg capsule Take 1 capsule by mouth three times daily for 30 days. alendronate (FOSAMAX) 70 mg tablet TAKE 1 TAB WEEKLY ON (more content not included)...[id number] NoteHNO ID: [id number] Author: Starr Green APRN.REPATCHER Service: ? Author Type: Nurse Practitioner Type: Progress Notes Filed: 10/26/2020 7:40 AM Note Text: Spine Care Path Low Back Pain - Acute (0 - 6 weeks) Initial Exam SUBJECTIVE HISTORY OF PRESENT ILLNESS: Roseann Dale is a 80 year old female who presents with a chief complaint of low back and leg pain and is seen in consultation requested by SELF Patient comes in today from [facility] Patient presents with back and right leg pain for the past 6 weeks Denies accident/injury Pain localized to right low back, Right medial thigh Pain described as sharp, aching Radiation: right medial thigh intermittent Numbness/Tingling: bilateral knees down to feet Tried a cane- was too shaky. Will not use a walker Pain worse with walking Pain improved with rest, sitting back support Interventions: None Medications: tylenol prn- some help, On fosamax, valium Physical Therapy: None Treating Physicians: Dr Edwin Ortho 2017- Trochanteric bursitis and lumbar radic- rx for therapy History of Spine Injections/Surgery: None Hx: thymectomy, osteoporosis CC: back/leg pain Patient follows up s/p Right transforaminal epidural steroid injection at L34 on [address] Gil. Patient reports 85% improvement in her back and right thigh pain. Biggest complaint now is pain in right groin. Limping with walking. Pain with hip abduction. No numbness tingling. No radicular pain. No notable back pain. Started on low dose gabapentin at last visit. Taking BID. Feels helpful. Physical therapy seeing Sean mendez at [facility] 2 x per week and feels helpful. Other Issues Addressed at the Visit Today: None. Precipitating Event: None PAIN EVALUATION 10/26/2020 0704 Pain Location: Leg-Right Description: Aching;Dull;Shooting;Sharp gives out Duration Units: Months Frequency: Intermittent Intervention: Medication ? Litigation: No Workers' Compensation: No YELLOW AND BLUE FLAGS YES-Neg Attitude; Back Pain is Disabling No-Avoiding Activity (for Fear of Pain) YES-Depression or Anxiety Disorders No-Social Problems No-Substance Use Disorder No-Job Dissatisfaction No-Financial Disincentives Patient Entered Questionnaires Spine Questions 09/29/2020 10/22/2020 Pain Location: Lower back Lower back Pain Duration: Less than 1 month - Symptoms from neck/cervical spine: No No Employment Status: Disabled due to back pain, permanently or temporarily - Off work 1 month or more due to back/neck pain: Does not apply - Applied for/receive disability/WC due to low back/neck pain Does not apply - Involved in law suit/legal claim: No - Spine Red Flags 09/29/2020 Any type of cancer: No Unexplained fever: No Bowel or bladder disfunction: No Unintentional weight loss: No Osteoporosis: Yes PROMIS Score Percentiles Physical Health 09/29/2020 Physical Function Percentile 2 Sleep Percentile 54 Fatigue Percentile 1 Pain Interference Percentile 1 Social Health 09/29/2020 Social Role Satisfaction Percentile 8 PROMIS Global Health Scale 09/29/2020 Physical Health Percentile 1 Mental Health Percentile 13 Percentiles provide an indication of how the patient's score ranks in relation to the general population. Higher percentile rankings indicate better function/quality of life. 50th percentile is the average of the general population and indicates half of respondents had a worse score. Depression Screening: PHQ-9 09/29/2020 Score 10 PHQ-9 Self Harm 09/29/2020 Question 9 Not at all PHQ-9 Self-Harm (Item 9) response options: 0 Not at all 1 Several days 2 More than half the days 3 Nearly every day PHQ-9 Levels: 0-4 No - mild depression 5-9 Mild depression 10-14 Moderate depression 15-19 Moderately severe depression 20-27 Severe depression There is no problem list on file for this patient. No past medical history on file. No past surgical history on file. Social History Tobacco Use - Smoking status: Former Smoker Quit date: 09/30/1979 Years since quittin.1 - Smokeless tobacco: Never Used Substance Use Topics - Alcohol use: Not on file - Drug use: Not on file No family history on file. ALLERGIES No Known Allergies CURRENT MEDICATIONS: alendronate (FOSAMAX) 70 mg tablet TAKE 1 TAB WEEKLY ON EMPTY STOMACH WITH GLASS OF WATER*AVOID EATING/LAYING FLAT FOR 30 MINUTES* citalopram (CELEXA) 20 mg tablet TAKE 1 TABLET BY MOUTH EVERYDAY AT BEDTIME furosemide (LASIX) 40 mg tablet Take 40 mg by mouth once daily. gabapentin (NEURONTIN) 100 mg capsule Take 1 capsule by mouth three times daily for 30 days. lisinopril (ZESTRIL, PRINIVIL) 10 mg tablet Take 10 mg by mouth once daily. diazePAM (VALIUM) 5 mg tablet Take 5 mg by mouth every 6 hours as needed. REVIEW OF SYSTEMS: PAIN ASSESSMENT: See HPI. GENERAL: Denies fever, chills malaise and weight loss. HEENT: No recent (more content not included)...[id number] Note HNO ID: [id number] Author: RT Alexandra(R) Service: ? Author Type: Carbon Paper Machine Operator Type: Progress Notes Filed: 09/29/2020 9:34 AM Note Text: Radiology Service Progress Note PATIENT NAME: Roseann Dale DATE OF SERVICE: September 29, 2020 TIME: 9:34 AM PATIENT IDENTITY VERIFICATION COMPLETED USING TWO (2) IDENTIFIERS: Name and Date of confirmed by patient verbally and Name and Date of confirmed by identification band. FALL SCREENING: Has the patient had 2 falls in the last year or 1 fall with injury or currently using an Ambulatory Assistive Device (Walker, Cane, Wheelchair, Crutches, etc.)? No PATIENT GENDER DATA: Female. status: : No status: NO. PATIENT RELEVANT IMPLANT DATA REVIEWED: Not Applicable RADIOLOGY DEPARTMENT: General X-ray: Exam(s) Completed: Spine X-Ray(s): Lumbar AP / LAT / L5-S1 / FLEX-EXT Pelvis X-Ray: Pelvis with Hip Right PERIPHERAL IV DATA: Not applicable SIGNED BY: Elizabeth Aguilar September 29, 2020 9:34 [facility]04-27-2021 NoteHNO ID: [id number] Author: Starr Green APRN.REPATCHER Service: ? Author Type: Nurse Practitioner Type: Progress Notes Filed: 09/29/2020 11:14 AM Note Text: Spine Care Path Low Back Pain - Acute (0 - 6 weeks) Initial Exam SUBJECTIVE HISTORY OF PRESENT ILLNESS: Roseann Dale is a 80 year old female who presents with a chief complaint of low back and leg pain and is seen in consultation requested by SELF Patient comes in today from [facility] Patient presents with back and right leg pain for the past 6 weeks Denies accident/injury Pain localized to right low back, Right medial thigh Pain described as sharp, aching Radiation: right medial thigh intermittent Numbness/Tingling: bilateral knees down to feet Tried a cane- was too shaky. Will not use a walker Pain worse with walking Pain improved with rest, sitting back support Interventions: None Medications: tylenol prn- some help, On fosamax, valium Physical Therapy: None Treating Physicians: Dr Edwin Thomas 2017- Trochanteric bursitis and lumbar radic- rx for therapy History of Spine Injections/Surgery: None Hx: thymectomy, osteoporosis Other Issues Addressed at the Visit Today: None. Precipitating Event: None PAIN EVALUATION 09/29/2020 0736 Pain Level: 5 Pain Location: Back-Lower Description: Aching;Tingling;Throbbing;Sharp;Stabbing Duration Amount of Time: ? right foot and and leg Duration Units: Weeks Frequency: Continuous Intervention: Medication ? Litigation: No Workers' Compensation: No YELLOW AND BLUE FLAGS YES-Neg Attitude; Back Pain is Disabling No-Avoiding Activity (for Fear of Pain) YES-Depression or Anxiety Disorders No-Social Problems No-Substance Use Disorder No-Job Dissatisfaction No-Financial Disincentives Patient Entered Questionnaires Spine Questions 09/29/2020 Pain Location: Lower back Pain Duration: Less than 1 month Symptoms from neck/cervical spine: No PROMIS Score Percentiles Physical Health 09/29/2020 Physical Function Percentile 2 Sleep Percentile 54 Fatigue Percentile 1 Pain Interference Percentile 1 Social Health 09/29/2020 Social Role Satisfaction Percentile 8 Percentiles provide an indication of how the patient's score ranks in relation to the general population. Higher percentile rankings indicate better function/quality of life. 50th percentile is the average of the general population and indicates half of respondents had a worse score. Depression Screening: PHQ-9 Self-Harm (Item 9) response options: 0 Not at all 1 Several days 2 More than half the days 3 Nearly every day PHQ-9 Levels: 0-4 No - mild depression 5-9 Mild depression 10-14 Moderate depression 15-19 Moderately severe depression 20-27 Severe depression There is no problem list on file for this patient. No past medical history on file. No past surgical history on file. Social History Tobacco Use - Smoking status: Not on file Substance Use Topics - Alcohol use: Not on file - Drug use: Not on file No family history on file. ALLERGIES Not on File CURRENT MEDICATIONS: lisinopril (ZESTRIL, PRINIVIL) 10 mg tablet Take 10 mg by mouth once daily. FUROSEMIDE ORAL Take by mouth. diazePAM (VALIUM) 5 mg tablet Take 5 mg by mouth every 6 hours as needed. methylPREDNISolone (MEDROL DOSE-PACK) 4 mg Dose-Pack Take by mouth as directed per package. REVIEW OF SYSTEMS: PAIN ASSESSMENT: See HPI. GENERAL: Denies fever, chills malaise and weight loss. HEENT: No recent change in vision or hearing. CARDIOVASCULAR: Denies chest pain, history of A-fib, valvular disease, or pacemaker/ICD. RESPIRATORY: Denies SOB, sputum production, and hemoptysis. GI: Denies GI ulcers, inflammatory disease, or liver disease. : Denies change in frequency or urgency, kidney disease, and burning with urination. MUSCULOSKELETAL: Positive for See HPI SKIN: Denies rash or itching. PSYCHOLOGICAL: Denies uncontrolled depression or anxiety. NEURO: Denies CVA, seizures, headaches. ENDOCRINE: Denies diabetes, thyroid disease. HEMATOLOGY/LYMPHOLOGY: Denies cancer, bleeding or clotting disorders, anemia,and DVT's. ALLERGIC/IMMUNOLOGICAL: Denies risks for infection, or recent MRSA infections. OBJECTIVE: PHYSICAL EXAM BP 148/60 Pulse 71 Temp 36.6 ?C (97.9 ?F) Ht 160 cm (5' 3 ) Wt 68 kg (150 lb) SpO2 92% BMI 26.57 kg/m? GENERAL APPEARANCE: Well appearing, well-hydrated, well nourished and alert SKIN: Head, neck, trunk, and extremities dry, intact and without lesions. Bilateral feet discoloration poor perfusion LUNGS: even and non-labored breathing, normal chest excursion NEURO/PSYCH: oriented to time, place, and person, speech normal, mental status intact GAIT: unsteady, pain with pressure on right leg POSTURE: Posture and spinal curves are abnormal; flexed forward posture PALPATION: no palpable masses, tenderness, or spasm, no palpable subluxa (more content not included)...[facility]No [facility] information availableTri[facility]Evaluation [facility]* Diagnosis History of revision of total replacement of right hip joint- Primary [facility] Diagnosis Right hip pain- Primary Pain in joint, pelvic region and thigh [facility]* Diagnosis Onset Date Resolution Status Acute respiratory failure with hypoxia acute Constipation acute Heart block acute Hemorrhoid acute HTN (hypertension) acute Non-ST elevation myocardial infarction (NSTEMI), initial care episode acute NSVT (nonsustained ventricular tachycardia) acute Symptomatic bradycardia acut e Takotsubo syndrome acute UTI (urinary tract infection) acute [facility] Work Phone: Evaluation note* Diagnosis Onset Date Resolution Status Acute respiratory failure with hypoxia acute Constipation acute Heart block acute Hemorrhoid acute HTN (hypertension) acute Non-ST elevation myocardial infarction (NSTEMI), initial care episode acute NSVT (nonsustained ventricular tachycardia) acute Symptomatic bradycardia acut e Takotsubo syndrome acute UTI (urinary tract infection) acute Acute hypoxemic respiratory failure acute CHF exacerbation acute [facility] Work Phone: Evaluation note* Diagnosis Onset Date Resolution Status Acute respiratory failure with hypoxia acute Constipation acute Heart block acute Hemorrhoid acute HTN (hypertension) acute Non-ST elevation myocardial infarction (NSTEMI), initial care episode acute NSVT (nonsustained ventricular tachycardia) acute Symptomatic bradycardia acut e Takotsubo syndrome acute UTI (urinary tract infection) acute Acute hypoxemic respiratory failure acute Acute respiratory failure with hypoxia acute CHF exacerbation acute Takotsubo cardiomyopathy acu te [facility] Work Phone: Evaluation noteNo [facility] Other Evaluation note* Diagnosis Essential hypertension, benign- Primary Mild CAD Mixed hyperlipidemia Stress-induced cardiomyopathy Takotsubo syndrome Cardiac pacemaker Cardiac pacemaker in situ BMI 24.0-24.9, adult documented in this encounter [facility] Work Phone: Evaluation note* Diagnosis Onset Date Resolution Status Elevated cholesterol acute MAGALY (generalized anxiety disorder) acute Lumbar spondylosis acute Primary hypertension acute Primary osteoarthritis of left knee acute Type 2 diabetes mellitus with hyperglycemia acute Medicare annual wellness visit, subsequent noneactive [facility] Work Phone: Evaluation note* Diagnosis Onset Date Resolution Status Elevated cholesterol acute MAGALY (generalized anxiety disorder) acute Lumbar spondylosis acute Primary hypertension acute Primary osteoarthritis of left knee acute Type 2 diabetes mellitus with hyperglycemia acute Medicare annual wellness visit, subsequent noneactive Cerumen impaction acute Decreased hearing of right ear acute Primary hypertension acute [facility] Work Phone: Evaluation note* Diagnosis Onset Date Resolution Status Cerumen impaction acute Decreased hearing of right ear acute Primary hypertension acute [facility] Work Phone: Evaluation note* Diagnosis Onset Date Resolution Status Cerumen impaction acute Decreased hearing of right ear acute Primary hypertension acute Decreased hearing of right ear acute Eustachian tube dysfunction acute Hoarseness of voice acute Tinnitus acute Primary hypertension acute Allergic contact dermatitis noneactive [facility] Work Phone: Evaluation note* Diagnosis Onset Date Resolution Status Decreased hearing of right ear acute Eustachian tube dysfunction acute Hoarseness of voice acute Tinnitus acute Primary hypertension acute Allergic contact dermatitis noneactive Elevated cholesterol acute MAGALY (generalized anxiety disorder) acute Lumbar spondylosis acute Primary hypertension acute Primary osteoarthritis of left knee acute Type 2 diabetes mellitus with hyperglycemia acute [facility] Work Phone: Evaluation note* Diagnosis Preop examination- Primary Preoperative examination, unspecified Primary osteoarthritis of right hip Primary localized osteoarthrosis, pelvic region and thigh Myasthenia gravis (HCC) Myasthenia gravis without exacerbation Primary hypertension Unspecified essential hypertension Aortic valve insufficiency, etiology of cardiac valve disease unspecified DDD (degenerative disc disease), lumbar Degeneration of lumbar or lumbosacral intervertebral disc Swelling Edema Pain in right hip Pain in joint, pelvic region and thigh History of total hip arthroplasty, right [facility]* Diagnosis Preop examination- Primary Preoperative examination, unspecified Primary osteoarthritis of right hip Primary localized osteoarthrosis, pelvic region and thigh Myasthenia gravis (HCC) Myasthenia gravis without exacerbation Primary hypertension Unspecified essential hypertension Aortic valve insufficiency, etiology of cardiac valve disease unspecified DDD (degenerative disc disease), lumbar Degeneration of lumbar or lumbosacral intervertebral disc Swelling Edema Pain in right hip Pain in joint, pelvic region and thigh Pain Generalized pain [facility]* Diagnosis Preop examination- Primary Preoperative examination, unspecified Primary osteoarthritis of right hip Primary localized osteoarthrosis, pelvic region and thigh Myasthenia gravis (HCC) Myasthenia gravis without exacerbation Primary hypertension Unspecified essential hypertension Aortic valve insufficiency, etiology of cardiac valve disease unspecified DDD (degenerative disc disease), lumbar Degeneration of lumbar or lumbosacral intervertebral disc Swelling Edema Pain in right hip Pain in joint, pelvic region and thigh Status post revision of total hip replacement Hip joint replacement by other means [facility]* Diagnosis Mixed hyperlipidemia- Primary Essential hypertension, benign Cardiac pacemaker Cardiac pacemaker in situ BMI 25.0-25.9,adult documented in this encounter [facility] Work Phone: Evaluation note* Diagnosis Onset Date Resolution Status Admit Date Elevated cholesterol acute Justyn h 2024 9:53am MAGALY (generalized anxiety disorder) acute August 22, 2024 9:53am Lumbar spondylosis acute August 22, 2024 9:53am Mammogram declined acute August 22, 2024 9:53am Primary hypertension acute Justyn h 2024 9:53am Primary osteoarthritis of le ft knee acute August 22, 2024 9:53am Type 2 diabetes mellitus wit h hyperglycemia acute August 22, 2024 9:53am Medicare annual wellness vis it, subsequent noneactive August 22, 2024 9:53am [facility] Work Phone: History general Narrative - Reported* Type Description Date Medical History History of colon polyps Medical History Change in bowel habit Medical History Menopause Medical History Obesity Medical History ORONA (dyspnea on exertion) Medical History Lumbosacral spondylosis with rad iculopathy Medical History Dislocation of right hip, subseq uent encounter Medical History Age-related osteopor osis without current pathological fracture Medical History Nicotine dependence, cigarettes, in remission Medical History Salter's palsy Medical History History of total replacement of right hip Medical History Anxiety, generalized Medical History Impaired fasting glucose Medical History Osteoarthritis of right hip Medical History Hyperlipidemia, group A Medical History Acute follicular conjunctivitis of left eye Medical History Chronic constipation Medical History Essential hypertension Medical History NSVT (nonsustained ventricular t achycardia) Medical History Takotsubo cardiomyopathy Medical History Dysuria Medical History Positional vertigo, bilateral Medical History Type 2 diabetes claudia itus with hyperglycemia, without long-term current use of insulin Surgical History LEFT HRT CATH W/VENTRCLGRPHY Surgical History INSERTION OF HEART PACEMAKER Surgical History TOTAL HIP ARTHROPLASTY Surgical History REMOVAL OF THYMUS GLAND Hospitalization History see surgical history [employer] Other History of Present illness Narrative* The patient states she has been generally stable since the last visit. Comorbid Illnesses: hypertension and hyperlipidemia. * Symptoms: denies chest pain at rest, denies exertional chest pain, worsened dyspnea, worsened fatigue, worsened exercise intolerance, denies palpitations, denies edema, denies orthopnea, denies dizziness and denies orthostatic dizziness. * Associated symptoms: no syncope. * Her symptoms do not limit her activities. * Disease Monitoring: The patient has had a stable weight. * Medications: the patient is adherent with her medication regimen. She denies medication side effects. -[facility] [address] DO Work Phone: History of Present illness Narrative* The patient states she has been generally stable since the last visit. Comorbid Illnesses: hypertension and hyperlipidemia. * Symptoms: denies chest pain at rest, denies exertional chest pain, worsened dyspnea, worsened fatigue, worsened exercise intolerance, denies palpitations, denies edema, denies orthopnea, denies dizziness and denies orthostatic dizziness. * Associated symptoms: no syncope. * Her symptoms do not limit her activities. * Disease Monitoring: The patient has had a stable weight. * Medications: the patient is adherent with her medication regimen. She denies medication side effects. [facility] WIB DO Work Phone: History of Present illness Narrative* The patient states she has been generally stable since the last visit. Comorbid Illnesses: hypertension and hyperlipidemia. * Symptoms: denies chest pain at rest, denies exertional chest pain, worsened dyspnea, worsened fatigue, worsened exercise intolerance, denies palpitations, denies edema, denies orthopnea, denies dizziness and denies orthostatic dizziness. * Associated symptoms: no syncope. * Her symptoms do not limit her activities. * Disease Monitoring: The patient has had a stable weight. * Medications: the patient is adherent with her medication regimen. She denies medication side effects. [facility] Work Phone: History of Present illness Narrative* The patient states she has been generally doing well since the last visit. Comorbid Illnesses: hypertension. * Symptoms: denies chest pain at rest, denies exertional chest pain, denies dyspnea, improved fatigue, improved exercise intolerance, denies palpitations, denies edema, denies orthopnea, denies dizziness and denies orthostatic dizziness. * Disease Monitoring: [facility] [employer] DO Work Phone: Hospital Discharge instructions Additional Instructions DISCHARGE INSTRUCTIONS FOR PERMANENT PACEMAKER AND IMPLANTABLE CARDIOVERTER DEFIBRILLATOR (ICD) INSTRUCTIONS 1. Incision should be kept clean and dry. Please notify us if the site becomes red, swollen, develops drainage, or if you begin having a fever or chills before your 1 week appointment. 2. May shower- avoid running water directly on your incision. 3. Do NOT stop antibiotics. If you have problems with them, please call. 4. Call with any symptoms of dizziness, lightheadedness, or passing out. 5. You may use the involved arm but you must avoid reaching backwards with the involved arm for 6 weeks. 6[address] to place your pacemaker/ICD implant card in your wallet/purse to carry with you at all times. You will receive this card in 6-8 weeks by mail. 7. You may resume driving in 2 weeks. 8. Continue all your home medications and the prescribed antibiotics per the medication reconciliation form. APPOINTMENT: 1. Office visit with nurse for incision check in the [facility] Office on 05/13/2022 at 1:00pm. 2. Chest x-ray to be done the same day as your device check at [facility] on 08/04/2022 . 3. Pacemaker/ICD clinic appointment at [facility] on 08/04/2022 at 11:30am. 4. Office visit with Shanna Caldera NP at [facility] in the [place] Office on 08/22/2022 at 11:30am. [][facility] Work Phone: Reason for referral (narrative)* Diagnostic Procedure Only (Routine) - Pending Review Specialty Diagnoses / Procedures Referred By Corinne brown Referred To Contact XR IMAGING Diagnoses History of revision of total replacement of right hip joint Procedures XR HIP GENERAL 3V PELV/AP/LAT RIGHT RADEX HIP UNILATERAL WITH PELVIS 2-3 VIEWS Alo Lomeli MD [address] [address] Xr Imaging Referral ID Status Reason Start Date Expiration Date Visits Requested Visits Authorized [id number] Pending Review Auto-Generat ed Referral 01/07/2022 02/06/2023 1 1 [facility] Consultation (Routine) - Authorized Specialty Diagnoses / Procedures Referred By Corinne brown Referred To Contact Cardiology Diagnoses Essential hypertension, benign Procedures Follow Up In Cardiology Shanna Caldera, GEOLOGICAL AIDE-REPATCHER [address] [facility], [facility] [address] [place] [address] Referral ID Status Reason Start Date Expiration Date V isits Requested Visits Authorized [id number] Authorized 05/01/2023 04/30/2024 [address] [facility] Work Phone: Reason for referral (narrative)* Diagnostic Procedure Only (Routine) - Closed Specialty Diagnoses / Procedures Referred By Jessicaac t Referred To Contact XR IMAGING Diagnoses History of total hip arthroplasty, right Procedures XR HIP GENERAL 3V PELV/AP/LAT RIGHT RADEX HIP UNILATERAL WITH PELVIS 2-3 VIEWS Rodrigue Zabala PA-C [address] [place], [place] [id number] [place] [address] Referral ID Status Reason Start Date Expiration Date V isits Requested Visits Authorized [id number] Closed Auto-Generate d Referral 07/23/2021 08/22/2022 1 1 [facility] for referral (narrative)* Diagnostic Procedure Only (Routine) - Closed Specialty Diagnoses / Procedures Referred By Corinne t Referred To Contact XR IMAGING Diagnoses Pain Procedures XR HIP GENERAL 3V PELV/AP/LAT RIGHT RADEX HIP UNILATERAL WITH PELVIS 2-3 VIEWS Alo Lomeli MD [address] [place], [place] [id number] [place] [address] Referral ID Status Reason Start Date Expiration Date V isits Requested Visits Authorized [id number] Closed Auto-Generate d Referral 07/02/2021 08/01/2022 1 1 [facility] for referral (narrative)* Diagnostic Procedure Only (Routine) - Closed Specialty Diagnoses / Procedures Referred By Corinne t Referred To Contact XR IMAGING Diagnoses Status post revision of total hip replacement Procedures XR HIP GENERAL 3V PELV/AP/LAT RIGHT RADEX HIP UNILATERAL WITH PELVIS 2-3 VIEWS Alo Lomeli MD [address] [place], [place] [id number] [place] [address] Referral ID Status Reason Start Date Expiration Date V isits Requested Visits Authorized [id number] Closed Auto-Generate d Referral 04/22/2021 05/22/2022 1 1 [facility] for referral (narrative)* Consultation (Routine) - Authorized Specialty Diagnoses / Procedures Referred By Contac t Referred To Contact Cardiology Diagnoses Essential hypertension, benign Procedures Follow Up In Cardiology Je Ruiz MD [address] [facility] [address], [address] [address] Beau Dillard MD [address] [facility] [address], [address] [address] Referral ID Status Reason Start Date Expiration Date V isits Requested Visits Authorized [id number] Authorized 11/28/2023 11/27/2024 1 1 [facility] Work Phone: Summary Purpose Family History Unknown Family Member Name Dates Details Hypertension, benign: Father Status:Active Hemorrhage: Father Status:Active Unknown Family Member Name Dates Details Hypertension, benign: Father Status:Active Hemorrhage: Father Status:Active Unknown Family Member Name Dates Details Hypertension, benign: Father Status:Active Hemorrhage: Father Status:Active Unknown Family Member Name Dates Details Hypertension, benign: Father Status:Active Hemorrhage: Father Status:Active Unknown Family Member Name Dates Details Hypertension, benign: Father Status:Active Hemorrhage: Father Status:Active Unknown Family Member Name Dates Details Hypertension, benign: Father Status:Active Hemorrhage: Father Status:Active Unknown Family Member Name Dates Details Hypertension, benign: Father Status:Active Hemorrhage: Father Status:Active Advance Directives Advance Directive Response Recorded Date/ Time Advance Directives No April 3:20pm Documents on File Type Date Recorded 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 Community Relations Expl anation Advance Directive(s) 02/10/2021 10:35 AM Advance Directive(s) 02/03/2021 1:37 PM Advance Directive(s) 01/13/2021 2:20 PM Advance Directive(s) 11/12/2020 7:38 AM Advance Directive Response Recorded Date/ Time Advance Directives No April 2:20pm Chief Complaint and 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 Chief Complaint B back pain Chief Complaint N Stemi 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 Acute respiratory fa ilure with hypoxia Constipation Heart block Hemorrhoid HTN (hypertension) Non-ST elevation myocardial infarction (NSTEMI), initial care episode NSVT (nonsustained ventricular tachycardia) Symptomatic bradycardia Takotsubo syndrome UTI (urinary tract infection) Chief Complaint N Stemi Dif breathing 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 Acute respiratory fa ilure with hypoxia Constipation Heart block Hemorrhoid HTN (hypertension) Non-ST elevation myocardial infarction (NSTEMI), initial care episode NSVT (nonsustained ventricular tachycardia) Symptomatic bradycardia Takotsubo syndrome UTI (urinary tract infection) Acute hypoxemic respiratory failure CHF exacerbation Chief Complaint N Stemi Dif breathing 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 Acute respiratory fa ilure with hypoxia Constipation Heart block Hemorrhoid HTN (hypertension) Non-ST elevation myocardial infarction (NSTEMI), initial care episode NSVT (nonsustained ventricular tachycardia) Symptomatic bradycardia Takotsubo syndrome UTI (urinary tract infection) Acute hypoxemic respiratory failure Acute respiratory failure with hypoxia CHF exacerbation Takotsubo cardiomyopathy Chief Complaint N Stemi Dif breathing [facility] VTACH 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 Acute respiratory fa ilure with hypoxia Constipation Heart block Hemorrhoid HTN (hypertension) Non-ST elevation myocardial infarction (NSTEMI), initial care episode NSVT (nonsustained ventricular tachycardia) Symptomatic bradycardia Takotsubo syndrome UTI (urinary tract infection) Acute hypoxemic respiratory failure Acute respiratory failure with hypoxia CHF exacerbation Takotsubo cardiomyopathy Chief Complaint [facility] VTACH Z95.0 I48.81 I10 I50.20 E11.65 Z79.899 Chief Complaint [facility] VTA Chief Complaint [facility] Medicare Wellness 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 Elevated cholesterol MAGALY (generalized anxiety disorder) Lumbar spondylosis Primary hypertension Primary osteoarthritis of left knee Type 2 diabetes mellitus with hyperglycemia Medicare annual wellness visit, subsequent Chief Complaint Medicare Wellness [facility] VTACH 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 Elevated cholesterol MAGALY (generalized anxiety disorder) Lumbar spondylosis Primary hypertension Primary osteoarthritis of left knee Type 2 diabetes mellitus with hyperglycemia Medicare annual wellness visit, subsequent Chief Complaint Medicare Wellness [facility] VTACH right ear plugged 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 Elevated cholesterol MAGALY (generalized anxiety disorder) Lumbar spondylosis Primary hypertension Primary osteoarthritis of left knee Type 2 diabetes mellitus with hyperglycemia Medicare annual wellness visit, subsequent Cerumen impaction Decreased hearing of right ear Primary hypertension Chief Complaint [facility] right ear plugged ear plugged 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 Cerumen impaction Decreased hearing of right ear Primary hypertension Chief Complaint [facility] right ear plugged ear plugged poison teresa 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 Cerumen impaction Decreased hearing of right ear Primary hypertension Decreased hearing of right ear Eustachian tube dysfunction Hoarseness of voice Tinnitus Primary hypertension Allergic contact dermatitis Chief Complaint right ear plugged ear plugged poison teresa [facility] VTACH 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 Cerumen impaction Decreased hearing of right ear Primary hypertension Decreased hearing of right ear Eustachian tube dysfunction Hoarseness of voice Tinnitus Primary hypertension Allergic contact dermatitis Chief Complaint ear plugged poison teresa [facility]B VTACH 6 month follow up 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 Decreased hearing of right ear Eustachian tube dysfunction Hoarseness of voice Tinnitus Primary hypertension Allergic contact dermatitis Elevated cholesterol MAGALY (generalized anxiety disorder) Lumbar spondylosis Primary hypertension Primary osteoarthritis of left knee Type 2 diabetes mellitus with hyperglycemia Chief Complaint Admit Date 6 month follow up February 22, 2024 9:54am [facility] VTACH April 22, 2024 7:42am 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 Admit Date Elevated cholesterol February 21 9:54am MAGALY (generalized anxiety disorder) [facility]2023 9:54am Lumbar spondylosis February 22, 2024 9:54am Overweight February 22, 2024 9:54am Primary hypertension February 21 9:54am Primary osteoarthritis of left knee [facility]2023 9:54am Type 2 diabetes mellitus with hyperglyce [facility] February 22, 2024 9:54am Chief Complaint Admit Date [facility] VTACH July 22, 2024 8:00am [facility] July 22, 2024 1:53pm Chief Complaint Admit Date [facility] VTACH July 22, 2024 8:00am [facility] July 22, 2024 1:53pm Wellness August 22, 2024 9:5 3am 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 Admit Date Elevated cholesterol August 22, 2024 9: 53am MAGALY (generalized anxiety disorder) August 22, 2024 9:53am Lumbar spondylosis August 22, 2024 9:5 3am Mammogram declined August 22, 2024 9:5 3am Primary hypertension August 22, 2024 9: 53am Primary osteoarthritis of left knee [facility] 2024 9:53am Type 2 diabetes mellitus with hyperglyce addis August 22, 2024 9:53am Medicare annual wellness visit, subseque nt August 22, 2024 9:53am Chief Complaint Patient is here today status post pcm insertion done by Dr. Je Ruiz MD at [facility] on 05/06/22.Dr. Peyman Castro MD in suite. Patient denies any cardiac complaints. Medication list was updatedverbally with patient. Antibiotics were given to patient at discharge, patient finished dose. Insertion site was free of any signs of infection or drainge. Insertion site was reviewed by Aleshia Norris RN prior to discharge. To Dr. Je Ruiz MD for review.* Hospital f/u: 'still feeling weak and tired' * ROSEANN DALE is being seen for follow-up of a hospitalization for weakness. * Hospital f/u: 'still feeling weak and tired' * ROSEANN DALE is being seen for follow-up of a hospitalization for weakness. * Patient presents to the office ambulatory with cane and steady gait. * This is initial in clinic follow-up at [facility]. * May 2022 presented to [facility] due to weakness. She was noted to have torsades and complete heart block. Cardiac catheterization revealed minimal coronary artery disease and evidence of Takotsubo cardiomyopathy with a EF 40%. On May 06, 2022 uneventful dual-chamber permanent pacemaker implant by Dr. Zhao. She was then readmitted shortly after discharge due to shortness of breath and Lasix was added to medical regimen. * She is now 3 months post device implant. Device interrogation last month unremarkable. She did not complete 3-month chest x-ray. * She reports not being able to take carvedilol due to myasthenia gravis. * Primary care physician has been adjusting lisinopril due to hypertension. Recently increased 1 weekago to 30 mg. * Patient presents today as an extremely pleasant 82-year-old female. Prior to hospitalization she was able to walk 1 mile daily without complaints. Currently feels just too weak and tired to do anything. She denies any orthopnea or PND. Had no complaints ambulating in from the parking lot. Denies any type of palpitations. * July 2022 device interrogation V paced 70%. May 12, 2022 V paced QRS 136. Knik QRS unknown. * Takotsubo cardiomyopathy EF 40%. Current treatment MANOJ inhibitor and diuretic. * Hypertension. We will change lisinopril over to valsartan, likely will initiate Entresto after echocardiogram reevaluated. * Hospital f/u: 'still feeling weak and tired' * ROSEANN DALE is being seen for follow-up of a hospitalization for weakness. * Patient presents to the office ambulatory with cane and steady gait. * This is initial in clinic follow-up at [facility]. * May 2022 presented to [facility] due to weakness. She was noted to have torsades and complete heart block. Cardiac catheterization revealed minimal coronary artery disease and evidence of Takotsubo cardiomyopathy with a EF 40%. On May 06, 2022 uneventful dual-chamber permanent pacemaker implant by Dr. Zhao. She was then readmitted shortly after discharge due to shortness of breath and Lasix was added to medical regimen. * She is now 3 months post device implant. Device interrogation last month unremarkable. She did not complete 3-month chest x-ray. * She reports not being able to take carvedilol due to myasthenia gravis. * Primary care physician has been adjusting lisinopril due to hypertension. Recently increased 1 weekago to 30 mg. * Patient presents today as an extremely pleasant 82-year-old female. Prior to hospitalization she was able to walk 1 mile daily without complaints. Currently feels just too weak and tired to do anything. She denies any orthopnea or PND. Had no complaints ambulating in from the parking lot. Denies any type of palpitations. * July 2022 device interrogation V paced 70%. May 12, 2022 V paced QRS 136. Knik QRS unknown. * Takotsubo cardiomyopathy EF 40%. Current treatment MANOJ inhibitor and diuretic. * Hypertension. We will change lisinopril over to valsartan, likely will initiate Entresto after echocardiogram reevaluated. * Routine f/u: 'seem to be feeling better' * ROSEANN DALE is being seen for a 3 month follow-up of hypertension and testing results. * Patient presents to the office ambulatory with steady gait. Last evaluated in clinic by myself August 2022. At that time she was initiated on olmesartan due to hypertension with repeat potassium 3.8, creatinine 0.7. Her PCP has recently added Norvasc and increase valsartan; will defer additional rhonda odonnell to PCP, patient has follow-up scheduled. * Her 3-month chest x-ray following pacemaker unremarkable. * Repeat October 2022 echo with resolution of Takotsubo cardiomyopathy. EF 55%. * At last follow-up patient was concerned regarding her continued fatigability. She presents today where she has started walking half mile daily, is becoming more conditioned. She is working out in [employer] and dragging the garden hose all over the place . She is very pleased with her noted improvement. * With addition of amlodipine she has noted some mild dependent edema, she continues on daily diuretic (initiated May 2022 for hospitalization due to shortness of breath). * Overall patient is pleased with current state of cardiovascular health. At this time there are no indications for additional cardiovascular testing or need for medication changes. Additional Source Comments INFORMATION SOURCE (unrecogn ized section and content) DATE CREATED AUTHOR 12/28/2020 [facility] DATE CREATED AUTHOR AUTHOR'S ORGANIZ ATION 12/29/2020 [facility] DATE CREATED AUTHOR AUTHOR'S ORGANIZ ATION 02/14/2021 [facility] DATE CREATED AUTHOR AUTHOR'S ORGANIZ ATION 02/15/2021 [facility] DATE CREATED AUTHOR AUTHOR'S ORGANIZ ATION 01/12/2022 [facility] DATE CREATED AUTHOR AUTHOR'S ORGANIZ ATION 09/01/2022 [facility] DATE CREATED AUTHOR AUTHOR'S ORGANIZ ATION 11/12/2022 [facility] DATE CREATED AUTHOR AUTHOR'S ORGANIZ ATION 02/02/2023 [facility] DATE CREATED AUTHOR AUTHOR'S ORGANIZ ATION 02/09/2024 [facility] DATE CREATED AUTHOR AUTHOR'S ORGANIZ ATION 07/28/2024 [facility] Goals (unrecognized section and content) Goals may be documented in a n alternate sectionNo InformationNo InformationNo InformationNo InformationNo InformationNo InformationNo InformationNo InformationGoals may be documented in an alternate sectionNo InformationNo InformationNo InformationNo InformationNo InformationNo InformationNo InformationNo InformationGoals may be documented in an alternate sectionNo InformationNo InformationGoals may be documented in an alternate sectionGoals may be documented in an alternate sectionGoals may be documented in an alternate sectionGoals may be documented in an alternate sectionGoals may be documented in an alternate sectionGoals may be documented in an alternate sectionGoals may be documented in an alternate sectionGoals may be documented in an alternate sectionGoals may be documented in an alternate sectionGoals may be documented in an alternate sectionGoals may be documented in an alternate section Source Comments (unrecognize d section and content) In the event this informatio n is protected by the Federal Confidentiality of Alcohol and Drug Abuse Patient Records regulations: The Federal rules restrict any use of the information to criminally investigate or prosecute any alcohol or drug abuse patient.[facility] [place] the event this information is protected by the Federal Confidentiality of Alcohol and Drug Abuse Patient Records regulations: The Federal rules restrict any use of the information to criminally investigate or prosecute any alcohol or drug abuse patient.[facility] [place] the event this information is protected by the Federal Confidentiality of Alcohol and Drug Abuse Patient Records regulations: The Federal rules restrict any use of the information to criminally investigate or prosecute any alcohol or drug abuse patient.[facility] [place] the event this information is protected by the Federal Confidentiality of Alcohol and Drug Abuse Patient Records regulations: The Federal rules restrict any use of the information to criminally investigate or prosecute any alcohol or drug abuse patient.[facility] [place] the event this information is protected by the Federal Confidentiality of Alcohol and Drug Abuse Patient Records regulations: The Federal rules restrict any use of the information to criminally investigate or prosecute any alcohol or drug abuse patient.[facility] Care Teams (unrecognized sec tion and content) Team Status: Active Member Role Status Dates Blue Navarro DO Primary Care Provider Active Team Status: Active Member Role Status Dates Blue Navarro DO Primary Care Provider Active Start: July 22, 2024 Je Ruiz MD Other Provider Active Start: July 22, 2024 Angeline Bradley MD Attending Provider Active Start: July 22, 2024 Team Status: Inactive Member Role Status Dates Blue Navarro DO Primary Care Provider Active Start: July 22, 2024 End: July 22, 2024 Beau Dillard MD Attending Provider Active Start: July 22, 2024 End: July 22, 2024 Team Status: Inactive Member Role Status Dates Blue Navarro DO Primary Care Provider Active Je Ruiz MD Attending Provider Active Team Status: Inactive Member Role Status Dates Blue Navarro DO Primary Care Provider, Other Provid er Active Shanna Caldera APRN Attending Provider Active Molding Machine Operator Helper Relationship Specialty Start Date End Date Blue Navarro DO [address] [place] [id number] PCP - General Internal Medicine 01/29/17 Molding Machine Operator Helper Relationship Specialty Start Date End Date Blue Navarro DO [address] [place] [id number] PCP - General Internal Medicine 01/29/17 Team Status: Inactive Member Role Status Dates Blue Navarro DO Primary Care Provider Active José Nelson DO Admit Provider Active Julio J Schreiber , DO Attending Provider Active Team Status: Active Member Role Status Dates Blue Navarro , Primary Care Provider Active Parish Larkin , DO Emergency Provider Active Julio Schreiber , DO Admit Provider, Attending Provider Active Team Status: Inactive Member Role Status Dates Blue Navarro , DO Primary Care Provider Active Parish Larkin , DO Emergency Provider Active Julio Schreiber , DO Admit Provider, Attending Provider Active Molding Machine Operator Helper Relationship Specialty Start Date End Date Blue Navarro DO [address] [place] [address] [address] [place] [address] PCP - General Internal Medicine 05/01/23 Team Status: Inactive Member Role Status Christiane Navarro DO Primary Care Provider Active Start: July 21, 2023 End: July 21, 2023 Je Ruzi MD Attending Provider Active Start: July 21, 2023 End: July 21, 2023 Team Status: Inactive Member Role Status Christiane Navarro DO Primary Care Provide r, Attending Provider Active Start: August 22, 2023 End: August 22, 2023 Team Status: Active Member Role Status Christiane Navarro DO Primary Care Provide r, Attending Provider Active Start: August 25, 2023 Team Status: Inactive Member Role Status Christiane Navarro DO Primary Care Provider Active Start: October 23, 2023 End: October 23, 2023 eJ Ruiz MD Attending Provider Active Start: October 23, 2023 End: October 23, 2023 Team Status: Inactive Member Role Status Christiane Navarro DO Primary Care Provide r, Attending Provider Active Start: November 15, 2023 End: November 15, 2023 Team Status: Inactive Member Role Status Christiane Navarro DO Primary Care Provide r, Attending Provider Active Start: December 05, 2023 End: December 05, 2023 Team Status: Inactive Member Role Status Christiane Navarro DO Primary Care Provide r, Attending Provider Active Start: January 15, 2024 End: January 15, 2024 Team Status: Inactive Member Role Status Christiane Navarro DO Primary Care Provider Active Start: January 22, 2024 End: January 22, 2024 Je Ruiz MD Attending Provider Active Start: January 22, 2024 End: January 22, 2024 Team Status: Active Member Role Status Dates Blue Navarro DO Primary Care Provider Active Start: January 22, 2024 Je Ruiz MD Other Provider Active Start: January 22, 2024 Angeline Bradley MD Attending Provider Active Start: January 22, 2024 Team Status: Inactive Member Role Status Dates Blue Navarro DO Primary Care Provide r, Attending Provider Active Start: February 22, 2024 End: February 22, 2024 Molding Machine Operator Helper Relationship Specialty Start Date End Date Blue Navarro DO [address] [place] [address] PCP - General Internal Medicine 01/29/17 Molding Machine Operator Helper Relationship Specialty Start Date End Date Blue Navarro DO [address] [place] [address] PCP - General Internal Medicine 01/29/17 Team Status: Active Member Role Status Dates Blue Navarro DO Primary Care Provider Active Start: April 22, 2024 Beau Dillard MD Other Provider Active St art: April 22, 2024 Angeline Bradley MD Attending Provider Active Start: April 22, 2024 Molding Machine Operator Helper Relationship Specialty Start Date End Date Blue Navarro DO PCP - General Internal Medicine 05/01/23 Team Status: Inactive Member Role Status Dates Blue Navarro DO Primary Care Provide r, Attending Provider Active Start: August 22, 2024 End: August 22, 2024 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 (unrecogniz ed section and content) Reason Comments Post Op Reason Comments Follow-up 6m Reason Comments Radio Gen RMP Specialty Diagnoses / Procedures Referred By Contac t Referred To Contact XR IMAGING Diagnoses History of total hip arthroplasty, right Procedures XR HIP GENERAL 3V PELV/AP/LAT RIGHT RADEX HIP UNILATERAL WITH PELVIS 2-3 VIEWS Rodrigue Zabala PA-C [address] [place] [address] Xr Imaging [place] [address] Referral ID Status Reason Start Date Expiration Date V isits Requested Visits Authorized [id number] Closed Auto-Generate d Referral 07/23/2021 08/22/2022 1 1 Specialty Diagnoses / Procedures Referred By Contac t Referred To Contact XR IMAGING Diagnoses Pain Procedures XR HIP GENERAL 3V PELV/AP/LAT RIGHT RADEX HIP UNILATERAL WITH PELVIS 2-3 VIEWS Alo Lomeli MD [address] [place] [address] [place] [address] Referral ID Status Reason Start Date Expiration Date V isits Requested Visits Authorized [id number] Closed Auto-Generate d Referral 07/02/2021 08/01/2022 1 1 Specialty Diagnoses / Procedures Referred By Contac t Referred To Contact XR IMAGING Diagnoses Status post revision of total hip replacement Procedures XR HIP GENERAL 3V PELV/AP/LAT RIGHT RADEX HIP UNILATERAL WITH PELVIS 2-3 VIEWS Alo Lomeli MD [address] [place] [address] [place] [address] Referral ID Status Reason Start Date Expiration Date V isits Requested Visits Authorized [id number] Closed Auto-Generate d Referral 04/22/2021 05/22/2022 1 1 Reason Comments Follow-up 6 months Specialty Diagnoses / Procedures Referred By Contac t Referred To Contact Cardiology Diagnoses Essential hypertension, benign Procedures Follow Up In Cardiology Shanna Caldera, GEOLOGICAL AIDE-REPATCHER [facility] 2, [address] [address] Je Ruiz MD [facility] [facility] 2, [place] [id number] Referral ID Status Reason Start Date Expiration Date V isits Requested Visits Authorized [id number] Authorized 05/17/2023 05/16/2024 1 1 FOR RECORDS PERTAINING TO PATIENTS WHO ARE OR HAVE BEEN ENROLLED IN A CHEMICAL DEPENDENCY/SUBSTANCEABUSE PROGRAM, SOME INFORMATION MAY BE OMITTED. This clinical summary was aggregated from multiple sources. Caution should be exercised in using it in the provision of clinical care. This summary normalizes information from multiple sources, and as a consequence, information in this document may materially change the coding, format and clinical context of patient data. In addition, data may be omitted in some cases. CLINICAL DECISIONS SHOULD BE BASED ON THE PRIMARY CLINICAL RECORDS. [facility]. provides no warranty or guarantee of the accuracy or completeness of information in this document.
[2024-09-02 07:24] LABS: Basophils Percent Auto 0.5 % (0.2-2.0); Eosinophils Absolute Auto 0.2 10^3/uL (0.0-0.7); Hematocrit 42.1 % (36.0-48.0); Hemoglobin 13.3 g/dL (12.0-16.0); Lymphocytes Absolute Auto 3.3 10^3/uL (1.2-3.8); Lymphocytes Percent Auto 55.5 % (20.5-60.0); Mean Corpuscular HGB Conc 31.6 g/dL (29.9-35.2); Mean Corpuscular Hemoglobin 29.2 pg (26.7-34.0); Mean Corpuscular Volume 92.5 fL (81.0-99.0); Mean Platelet Volume 9.5 fL (9.5-13.5); Monocytes Absolute Auto 0.5 10^3/uL (0.3-0.8); Monocytes Percent Auto 8.4 % (1.7-12.0); Neutrophils Absolute Auto 1.9 10^3/uL (1.4-6.5); Neutrophils Percent Auto 32.6 % (43.0-75.0); Platelet Count 208 10^3/uL (150-450); Red Blood Count 4.55 10^6/uL (4.20-5.40); Red Cell Distribution Width 13.3 % (11.0-15.0); White Blood Count 5.9 10^3/uL (4.0-11.0)
[2024-09-02 07:47] LABS: Creatinine Urine Random 63.67 mg/dL (20.00-300.00); Microalbumin Urine Random <1.3 mg/dL (<=30.0)
[2024-09-02 07:47] LABS: Alanine Aminotransferase 23 U/L (14-59); Albumin Globulin Ratio 0.9; Albumin Level 3.4 g/dL (3.4-5.0); Alkaline Phosphatase 86 U/L (46-116); Anion Gap 10.9; Aspartate Amino Transferase 25 U/L (15-37); BUN Creatinine Ratio 22.5; Bilirubin Total 0.4 mg/dL (0.2-1.0); Calcium 9.1 mg/dL (8.5-10.1); Carbon Dioxide 35.1 mmol/L (21.0-32.0); Chloride 101 mmol/L (98-107); Chol HDL Ratio 2.3; Cholesterol 209 mg/dL (<=200); Estimated GFR (African America >60 (>=60 mL/min/1.73m^2); Estimated GFR (Non-African Ame >60 (>=60 mL/min/1.73m^2); Globulin 3.8 g/dL; Glucose 115 mg/dL (74-106); HDL Cholesterol 91 mg/dL (40-60); Sodium 143 mmol/L (136-145); Total Protein 7.2 g/dL (6.4-8.2); Triglycerides 117 mg/dL (<=150); VLDL CHOLESTEROL 23.4 mg/dL
[2024-09-02 08:08] LABS: Estimated Average Glucose 140 mg/dL; Glycohemoglobin A1C 6.5 % (4.5-6.2)
== END 2024-09-02 07:04 | disposition home or self-care (01) ==
LOC: LAB 07:06
PROVIDERS: PCP Internal Medicine; Visit Provider Internal Medicine
DX: E11.65 Type 2 diabetes mellitus with hyperglycemia (principal); E78.00 Pure hypercholesterolemia, unspecified; I10 Essential (primary) hypertension; Z79.899 Other long term (current) drug therapy
CPT/HCPCS: 36415; 80053; 80061; 82043; 82570; 83036; 85025

== ENCOUNTER 2025-04-17 15:08 | Emergency (ER) | payer OTHER, SELFPAY ==
[2025-04-17 15:14] VITALS: BP 185/89; PULSE 62; TEMP 36.4; O2SAT 94; BMI 24.8
--- NOTE | 2025-04-17 15:31 | XR_ITS ---
The [address] [address] Patient Name: SLADE ZHENG MRN: [id number] date: 1940 Sex: F Assigned Patient Location: ER Current Patient Location: ER Accession/Order Number: [id number] Exam Date: 04/17/2025 15:40 Report Date: 04/17/2025 16:11 At the request of: STEVE MERCADO MD Procedure: XR hip RT 2V w/ pelvis Single view pelvis and 2 views of the right hip INDICATION: Pain COMPARISON: Right hip x-ray 02/02/2021 FINDINGS: The postsurgical changes status post right total hip arthroplasty without periprosthetic lucency or loosening. No fracture or dislocation identified. Hardware is intact. Dkxk-rm-cmdhkzbc degenerative changes left hip and involving both sacroiliac joints. There are degenerative changes lumbosacral junction.. XR/XR hip RT 2V w/ pelvis IMPRESSION: Altk-eb-jmxzhaeg degenerative changes. Negative acute osseous findings. Impression dictated by: Alfredo Serna M.D. 04/17/2025 4:11 PM Dictation Location: [place] [address] Electronically authenticated by: [id number] Y Date: 04/17/2025 16:11
[2025-04-17] MEDS: KETOROLAC TROMETHAMINE 30 MG/ML VIAL 15 MG IM (15:53)
[2025-04-17 15:59] VITALS: BP 160/75
--- OUTSIDE RECORDS SUMMARY | 2025-04-17 16:23 | XMS_ITS | Clinical Summary ---
Author Organization [facility] Address [address] [place] [address] Care Team Providers Care Steaming Cabinet Tender Name Role Phone Unavailable Primary Care Provider Unavailabl e Social History Tobacco UseTypesPacks/DayYears UsedDateSmoking Tobacco: Never AssessedUT Safety & EnvironmentAnswerDate RecordedFear of Current or Ex-PartnerNot on file 07/27/2023Emotionally AbusedNot on file07/27/2023hysically AbusedNot on file 07/27/2023Sexually AbusedNot on file4Physically or Sexually AbusedNot on file07/27/2023CommentsUnknownSex and Gender InformationValueDate RecordedSex Assigned at BirthNot on fileLegal DdgHrjisj48/30/2022 12:38 AM EDT Gender IdentityNot on fileSexual OrientationNot on file Plan of Treatment Not on file
--- OUTSIDE RECORDS SUMMARY | 2025-04-17 16:23 | XMS_ITS | Clinical Summary ---
Author Organization [facility] Address [address] [place] [address] Phone Care Team Providers Care Activity Therapist Name Role Phone Blue Aquino DO Primary Care Provider [phone] Allergies No known active allergies Medications MedicationSigDispense QuantityRefillsLast FilledStart DateEnd DateStatus diazePAM (Valium) 5 mg tablet Take 1 tablet (5 mg) by mouth 3 times a day as needed.Active furosemide (Lasix) 40 mg tablet Take 1 tablet (40 mg) by mouth once daily.Active citalopram (CeleXA) 20 mg tablet Take 1 tablet (20 mg) by mouth once daily.Active aspirin 81 mg EC tablet Take 1 tablet (81 mg) by mouth once daily.05/31/2022ctive atorvastatin (Lipitor) 10 mg tablet Indications:Mixed hyperlipidemiaTake 1 tablet (10 mg) by mouth once daily at bedtime. 90 tablet 503/ctive magnesium oxide (Mag-Ox) 400 mg (241.3 mg magnesium) tablet Indications:Atrioventricular block, complete (Multi),Essential hypertension, benignTake 1 tablet (400 mg) by mouth once daily. 90 tablet /087556/ctive valsartan (Diovan) 160 mg tablet Indications:Essential hypertension, benignTAKE 1 TABLET (160 MG) BY MOUTH 2 TIMES A DAY. 180 tablet 306/10/879003/ctive multivitamin tablet Take 1 tablet by mouth once daily.Active metoprolol succinate XL (Toprol-XL) 25 mg 24 hr tablet Indications:Essential hypertension, benign,Stress-induced cardiomyopathyTake 1 tablet (25 mg) by mouth once daily. Do not crush or chew. 90 tablet 5076Active Active Problems ProblemNoted DateDiagnosed DateLower extremity edema12/25/2024omplete heart block12/25/2024MI 25.0-25.9,adult11/28/2023MI 24.0-24.9, adult05/01/2023 Cardiac zfnfxawvf14/22/2023 Assessment & Plan (05/01/2023 8:03 AM EST): May 2022: SJM dual-chamber PPM (complete heart block) Jan 2023 device interrogation DIRECTOR MEETINGS 12% Essential hypertension, smjbdd0004/26/2023 Assessment & Plan (05/01/2023 8:53 AM EST): Elevated in office Follows at home and 'always fine' Complaint with norvasc and diovan No beta-jermain due to myasthenia gravis Mild CAD04/26/2023 Assessment & Plan (05/01/2023 8:03 AM EST): May 2022 cardiac cath minimal CAD Mixed wnfozsawoamcyu01/22/2023 Assessment & Plan (05/01/2023 8:53 AM EST): Maintained on low intensity statin Is due for annual lab work Stress-induced qyleytypvskpaa41/22/2023 Assessment & Plan (05/01/2023 8:04 AM EST): May 2022: cardiac cath Takotsubo EF 40% October 2022: TTE normalized WMA EF 55% Resolved Problems ProblemNoted DateDiagnosed DateResolved DateComplete heart block04/26/2023 05/01/2023 Immunizations ImmunizationAdministration DatesNext DueFlu vaccine, trivalent, preservative free, HIGH-DOSE, age 65y+ (Fluzone)02/22/2024 Family History Medical HistoryRelationNameCommentsHypertensionFatherhemorrhageFatherRelation NameStatusCommentsFather Social History Tobacco UseTypesPacks/DayYears UsedDateSmoking Tobacco: FormerCigarettes0.33.3 02/19/1958 - 2Smokeless Tobacco: Never Tobacco Cessation:Counseling Given: Not Answered Alcohol UseStandard Drinks/WeekCommentsYes0 (1 standard drink = 0.6 oz pure alcohol)occasionallyCommentsUnknownSex and Gender InformationValueDate RecordedSex Assigned at BirthNot on fileLegal KmpOsrllb30/29/2022 2:12 AM EST Gender IdentityNot on fileSexual OrientationNot on file Last Filed Vital Signs Vital SignReadingTime TakenCommentsBlood Bgemhlrp350/6207 11:40 AM EDT Owpii066312/25/2024 11:40 AM FKQCfupfvphywo29.8 ??C (98.3 ??F)05/13/2022 3:59 PM ESTRespiratory Rate--Oxygen Saturation--Inhaled Oxygen Concentration--Pjfcaf03.9 kg (143 lb)12/25/2024 11:40 AM TBNQuucwb267 cm (5' 3 )12/25/2024 11:40 AM EDT Body Mass Index25.3307 11:40 AM EDT Plan of Treatment DateTypeDepartmentCare Team (Latest Contact Info)Nksrqugtoeo74/23/2026 10:10 AM EDTOffice Visit [address] [place] [address] Beau Dillard MD [facility]03 [facility] 2, [address] [place] [address] Health MaintenanceDue DateLast DoneCommentsLipid Panel1938Medicare Annual Wellness Visit (AWV)1940Pneumococcal Vaccine (1 of 2 - PCV)1957 DTaP/Tdap/Td Vaccines (1 - Tdap)01/20/1960Zoster Vaccines (1 of 2)01/20/1988Bone Density Scan2003RSV High Risk: (Elderly (60+) or Population) (1 - 1-dose 75+ series)2013Influenza Vaccine (#1)504COVID-19 Vaccine ( season)2025HIB VaccinesAged OutNo longer eligible based on patient's age to complete this topicHPV VaccinesAged OutNo longer eligible based on patient's age to complete this topicHepatitis A VaccinesAged OutNo longer eligible based on patient's age to complete this topicHepatitis B VaccinesAged OutNo longer eligible based on patient's age to complete this topic IPV VaccinesAged OutNo longer eligible based on patient's age to complete this topicMeningococcal VaccineAged OutNo longer eligible based on patient's age to complete this topicRotavirus VaccinesAged OutNo longer eligible based on patient's age to complete this topic Insurance Care Teams Team MemberRelationshipSpecialtyStart DateEnd Date Blue Aquino DO [address] [place] [address] [facility]CP - [facility]11/13/24
--- OUTSIDE RECORDS SUMMARY | 2025-04-17 16:23 | XMS_ITS | Clinical Summary ---
Author Organization [facility] Address [address] [place] [address] Care Team Providers Care Patient Biller Name Role Phone Blue Aquino DO Primary Care Provider [phone] Allergies No known active allergies Medications MedicationSigDispense QuantityRefillsLast FilledStart DateEnd DateStatus lisinopril (ZESTRIL, PRINIVIL) 10 mg tablet Take 20 mg by mouth once daily. Active diazePAM (VALIUM) 5 mg tablet Take 5 mg by mouth every 6 hours as needed.Active alendronate (FOSAMAX) 70 mg tablet Pt reports taking every 07/04/2020ctive citalopram (CELEXA) 20 mg tablet TAKE 1 TABLET BY MOUTH EVERYDAY AT UFMDGMK7207/09/2020ctive furosemide (LASIX) 40 mg tablet Take 40 mg by mouth once daily.07/23/2020ctive gabapentin (NEURONTIN) 300 mg capsule Take 1 capsule by mouth three times daily for 30 days. 90 capsule 12/18/2020ctive Additional Information Patient taking differently:300 mg ORAL2 TIMES DAILY, Reported on 01/22/2021 CALCIUM ORAL Take by mouth once daily.Active MULTI-VITAMIN ORAL Take by mouth once daily.Active aspirin, enteric coated (ECOTRIN LOW STRENGTH) 81 mg EC tablet Take 1 tablet by mouth twice daily. 60 tablet 01/21/2021ctive naloxone 4 mg/actuation nasal spray (NARCAN) Use 1 spray in one nostril as needed for overdose. May repeat every 2 to 3 min in alternating nostrils until medical assistance is available 1 Box 01/21/2021ctive pantoprazole DR (PROTONIX) 40 mg tablet Take 1 tablet by mouth once daily. 30 tablet 01/21/2021ctive docusate sodium (COLACE) 100 mg capsule Take 1 capsule by mouth twice daily. 60 capsule ctive Additional Information Patient not taking.Reason: Course of Therapy Completed, Reported on 04/27/2021 ondansetron (ZOFRAN) 4 mg tablet Take 1 tablet by mouth every 8 hours as needed for nausea/vomiting (For Nausea). 10 tablet 02/09/2021ctive pantoprazole DR (PROTONIX) 20 mg tablet Take 1 tablet by mouth once daily for 14 days. 14 tablet 02/09/2021ctive acetaminophen (TYLENOL EXTRA STRENGTH) 500 mg tablet Take 1 tablet by mouth every 8 hours as needed for pain or fever (specify). 60 tablet 02/09/2021ctive naloxone (NARCAN) 4 mg/actuation nasal spray Use 1 spray in one nostril as needed for overdose. May repeat every 2 to 3 min in alternating nostrils until medical assistance is available 1 Box 02/09/2021ctive Additional Information Patient not taking.Reason: Course of Therapy Completed, Reported on 04/27/2021 traMADol (ULTRAM) 50 mg tablet Take 50 mg by mouth every 6 hours as needed for pain.Active LORazepam (ATIVAN) 0.5 mg Take 0.5 mg by mouth twice daily as needed.Active magnesium hydroxide (MILK OF MAGNESIA) 400 mg/5 mL suspension Take by mouth once daily as needed.Active Active Problems ProblemNoted DateDiagnosed DateS/P revision of total hip02/10/2021tatus post right hip jzzxtnedgvf16/19/2021rimary ovbvtxnrqkvc13/18/2021 Assessment & Plan (01/20/2021 8:54 AM EDT): Assessment: Managed with med Date: BP: 01/20/2021 145/82 Stable. Aortic cpukeskhqrbqk21/18/2021 Assessment & Plan (01/20/2021 8:55 AM EDT): Assessment: mild, per 12/07/2020 ECHO Monitored by PCP DDD (degenerative disc disease), yajtrb3101/20/2021 Assessment & Plan (01/20/2021 8:57 AM EDT): Assessment: per 09/14/2020 MRI Spine (CARE EVERYWHERE) Fxxvanfh13/18/2021 Assessment & Plan (01/20/2021 8:59 AM EDT): Assessment: BLE swelling Managed with Lasix Monitored by PCP Right hip pain11/12/2020 Resolved Problems ProblemNoted DateDiagnosed DateResolved DateMyasthenia lujqfc6001/20/2021 02/10/2021 Assessment & Plan (01/20/2021 8:54 AM EDT): Assessment: No current treatment Monitored by PCP Family History Medical HistoryRelationCommentsHypertensionFatherStrokeFatherCancerMotherlung RelationStatusCommentsFatherMother Social History Tobacco UseTypesPacks/DayYears UsedDateSmoking Tobacco: FormerCigarettes0.55 09/29/1974 - 09/30/1979mokeless Tobacco: Never Tobacco Cessation:Counseling Given: Not Answered Alcohol UseStandard Drinks/WeekCommentsNot Currently0 (1 standard drink = 0.6 oz pure alcohol)PHQ-2AnswerDate RecordedPHQ-2 sjhma865rea Deprivation IndexAnswerDate RecordedNational Score (1-100), lower number is lower risk65 07/03/2022State Score (1-10), lower number is lower riskNot on file07/03/2022 Data from: https://www.neighborhoodatlas.medicine.[facility].edu/. Last address used for duq[address]07/03/2022CommentsNoSex and Gender Information ValueDate RecordedSex Assigned at BirthNot on fileLegal MnqMbkmjr68/27/2017 11:25 AM EDTGender IdentityNot on fileSexual OrientationNot on file Last Filed Vital Signs Vital SignReadingTime TakenCommentsBlood Obrmyezk008/6609 8:12 PM EDT Kbppu7926 8:12 PM RWKTqyeqwydavg93.7 ??C (98.1 ??F)02/11/2021 8:12 PM EDTRespiratory Csvc484802/11/2021 8:12 PM EDTOxygen Fwwhmbouse42%02/11/2021 8:12 PM EDTInhaled Oxygen Concentration--Rqdlhg15 kg (161 lb)02/10/2021 5:48 PM EDT Dmrezc304 cm (5' 3 )02/10/2021 5:48 PM EDTBody Mass Index28.52002/10/2021 5:48 PM EDT Plan of Treatment Health MaintenanceDue DateLast DoneCommentsAnxiety Sjiyisnao19/17/1956Depression Lkdtdlpsl59/17/1956DTaP,Tdap,Td Vaccine (1 - Tdap)1957Pneumococcal Vaccine: 50+ (1 of 1 - PCV)01/20/1988Shingrix Vaccine (1 of 2)01/20/1988Bone Density Nxpbxjnzp98/17/2003RSV Vaccine (1 - 1-dose 75+ series)2013Diabetes Tkbzsodoi48/02/2021, 01/23/2021, 01/20/2021dvance Directive Dbaltxnvxm45/01/2025Covid-19 Vaccine ( season)/, 06/29/2020Influenza Vaccine (#1)/05/2019, 02/12/2018, 04/18/2014 Medical Devices ImplantedTypeAreaManufacturerDevice IdentifierShelf Expiration DateModel / Serial / LotTrident X3 Polyethylene Insert 0deg 32mm Sz D [facility] - [facility] IHMJLDG93/24/[id number] / / [id number] V40 32mm -4mm Offset Taper Biolox Delta Femoral Hip - [id number] Implanted:Qty[facility] STRY-HOW CJXEYUGBEEC01/24/[id number] / / [id number] Accolade Ii 5 127d Femoral - [id number] Implanted:Qty: 1 [facility] STRY-HOW ILSGUNWBMKZ83/16/[id number] / / [id number] V40 Lfit 22mm +0mm Offset Taper Cocr Femoral Primary Hip - [id number] Implanted:Qty: 1 on 02/10/2021 at [facility] HipRight: Bone - [facility] RVPCWNBEGPQ15/11/[id number] / / [id number] Trident Ii 50mm D Tritanium Acetabular 3 Screw Hole Cluster Sterile - [id number] Implanted:Qty: [facility] BPPDVKTQDAS29/09/[id number] / / [id number] Mobile Bearing Hip Latter Day 38d X3 22.2mm Acetabular Anatomic - [id number] Implanted:Qty: 1 [facility] JBMVAPWKBAT33/11/[id number] / / [id number] 38mm D Acetabular Modular 2 Mobility Hip - [id number] Implanted:Qty: 1 [facility] - HipSCHI [facility] OKQIHEHDHAY75/14/[id number] / / [id number] Trident Ii 6.5mm 30mm Bone Low Profile Hexagonal Sterile - [id number] Implanted:Qty: 1 on [facility]/22/20[facility]: [facility] - HipSCHI [facility] RQVJZFUXJKB92/14/[id number] / / [id number] Procedures Procedure NamePriorityDate/TimeAssociated DiagnosisCommentsBASIC METABOLIC PANEL Ijohynf9302/11/2021 4:06 AM EDT from Last 3 Months or Most Recently Relevant to Health Maintenance Results * (ABNORMAL) BASIC METABOLIC PNL (02/11/2021 4:06 AM EDT)ComponentValueRef Range Test MethodAnalysis TimePerformed AtPathologist PnmkbctkkYlmtgkg428(H)74 - 99 mg/dL02/11/2021 6:30 AM EDTLutheran TuxfzznzLGP627 - 21 mg/dL02/11/2021 6:30 AM [facility] CenterCreatinine0.780.58 - 0.96 mg/dL02/11/2021 6:30 AM [facility]WzhndovcUlgjbh943005 - 144 mmol/L02/11/2021 6:30 AM [facility] CenterPotassium4.43.7 - 5.1 mmol/L02/11/2021 6:30 AM [facility] Amodhvuh20994 - 105 mmol/L02/11/2021 6:30 AM [facility] CenterCO23022 - 30 mmol/L02/11/2021 6:30 AM [facility] CenterAnion Gap8(L)9 - 18 mmol/L 02/11/2021 6:30 AM [facility] CenterCalcium8.2(L)8.5 - 10.2 mg/dL02/11/2021 6:30 AM [facility] CentereGFR->60>6009 6:30 AM [facility] HospitaleGFR-All Other Races>60>60 .02/11/2021 6:30 AM [facility] CenterComment: eGFR (Estimated GFR) Units of measure: mL/min/1.73 [...] eGFR may not accurately reflect actual GFR. Specimen (Source)Anatomical Location / LateralityCollection Method / Volume Collection TimeReceived TimeBloodBLOOD SPECIMEN / Tfejtsf0502/11/2021 4:06 AM EDT 02/11/2021 4:08 AM EDT Narrative Authorizing ProviderResult TypeResult StatusMarija Donato MDLABORATORYFinal ResultPerforming OrganizationAddressCity/State/ZIP CodePhone Number [facility] [address] [place] [address], [facility] [address] [address] from Last 3 Months or Most Recently Relevant to Health Maintenance Insurance Care Teams Team MemberRelationshipSpecialtyStart DateEnd Date Blue Aquino DO [address] [place] [address] PCP - GeneralInternal Medicine01/29/17
--- NOTE | 2025-04-17 16:24 | ED_ITS ---
HPI HPI - Extremity Injury (Lower) General Chief Complaint: Extremity Injury, Lower Stated Complaint: HIP IS BOTHERING HER Time Seen by Provider: 04/17/25 15:22 Source: patient Mode of arrival: walk-in Limitations: no limitations History of Present Illness HPI Narrative: The patient is 85 years old with coming to the ER with a right hip pain that been going on at least for the week although today she did have her right hip gave up on her while she is standing up, but she was able to walk with no difficulty coming to the ER Patient is only taking Tylenol for pain and she called her primary care doctor who told her to come to the ER to be evaluated No history of fall or trauma and she have a history of right hip replacement twice after dislocation Related Data Home Medications ?Medication ?Instructions ?Recorded ?Confirmed amlodipine 5 mg tablet mg 04/17/25 atorvastatin 10 mg tablet mg 04/17/25 citalopram 20 mg tablet mg 04/17/25 diazepam 5 mg tablet mg 04/17/25 furosemide 40 mg tablet mg 04/17/25 magnesium oxide 400 mg (241.3 mg mg 04/17/25 magnesium) tablet metoprolol succinate 25 mg mg PO 04/17/25 tablet,extended release 24 hr valsartan 160 mg tablet mg 04/17/25 Previous Rx's ?Medication ?Instructions ?Recorded meloxicam 7.5 mg tablet 7.5 mg PO DAILY PRN pain #10 tabs 04/17/25 Allergies Allergy/AdvReac Type Severity Reaction Status Date / Time No Known Drug Allergies Allergy Verified 04/17/25 15:14 Opioid HPI Opioid Management Most Recent Pain and Opioid Data: Last Pain Scale 6 Today, 15:53 Last MAR Pain Assessment Today, 15:53 Review of Systems 2 ROS Status of ROS 10 or more systems reviewed and unremark able except as noted in history and below PFSH PFSH Social History Little interest or pleasure in doing things: not at all Feeling down, depressed, or hopeless: not at all Exam Narrative Exam Narrative: Nurses notes and vital signs reviewed and patient is not hypoxic. General: Well-appearing and in no apparent distress. Skin: Warm, dry, no pallor noted. No rash. Right lower extremity exam; the patient have no significant tenderness on palpation of the right hip and she was able to have a full range of movement in the right hip with no difficulty and normal strength compared to the left side Neurological: A&O x4. No cranial nerve dysfunction observed. No truncal ataxia. Moves all extremities. Sensation intact. Psychiatric: Cooperative and interactive. Normal mood and affect. Constitutional Vital Signs, click to edit/add: Last Vital Signs Temp 97.5 F L 04/17/25 15:14 Pulse 62 04/17/25 15:14 Resp 18 04/17/25 15:14 BP 160/75 H 04/17/25 15:59 Pulse Ox 94 L 04/17/25 15:14 O2 Del Method Room Air 04/17/25 15:14 Course Vital Signs Vital signs: Vital Signs Temperature 97.5 F L 04/17/25 15:14 Pulse Rate 62 04/17/25 15:14 Respiratory Rate 18 04/17/25 15:14 Blood Pressure 185/89 H 04/17/25 15:14 Pulse Oximetry 94 L 04/17/25 15:14 Oxygen Delivery Method Room Air 04/17/25 15:14 Temperature 97.5 F L 04/17/25 15:14 Pulse Rate 62 04/17/25 15:14 Respiratory Rate 18 04/17/25 15:14 Blood Pressure 160/75 H 04/17/25 15:59 Pulse Oximetry 94 L 04/17/25 15:14 Oxygen Delivery Method Room Air 04/17/25 15:14 MDM - Extremity Injury (Lower) MDM Narrative Medical decision making narrative: X-ray of the right hip showed no acute pathology The patient was treated in the ER with Toradol 1 dose discharged home with Mobic and referred to her primary care The patient to follow-up with the primary care within 2 to 3 days and to come back to the ER in case of any worsening of the current symptoms or any new symptoms or concerns Discharge Plan Discharge Chief Complaint: Extremity Injury, Lower Clinical Impression: Hip joint pain Patient Disposition: Home, Self-Care Time of Disposition Decision: 16:29 Condition: Good Prescriptions / Home Meds: New meloxicam 7.5 mg tablet 7.5 mg PO DAILY PRN (Reason: pain) Qty: 10 0RF No Action furosemide 40 mg tablet atorvastatin 10 mg tablet amlodipine 5 mg tablet citalopram 20 mg tablet magnesium oxide 400 mg (241.3 mg magnesium) tablet metoprolol succinate 25 mg tablet extended release 24 hr PO diazepam 5 mg tablet valsartan 160 mg tablet Print Language: Nigerian Instructions: Hip Pain (ED) Referrals: Blue Aquino DO [Primary Care Provider, Internal Medicine] - 1 week Discharge Date/Time: 04/17/25 16:35
--- OUTSIDE RECORDS SUMMARY | 2025-04-17 16:26 | XMS_ITS | CCD ---
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 Role Phone DO Blue Navarro Primary Care Provider JUAN Green Attending Provider Blue Navarro DO Primary Care Provider Blue Navarro DO Primary Care Provider DO Blue Navarro Primary Care Provider DO José Nelson Admit Provider DO Julio Schreiber Attending Provider DO Parish Larkin Emergency Provider DO Julio Schreiber Admit Provider Blue Navarro Unavailable Unavailable Unavailable MD Je Ruiz Attending Provider Blue Navarro Unavailable DR BLUE NAVARRO Primary Care Unavailable PAY ., DR SOLIS Admitting Unavailable PAY ., DR SOLIS Attending Unavailable MELANIE, DR MCARTHUR Consulting Unavailable PAY ., DR SOLIS Consulting Unavailable MELANIE, DR MCARTHUR Primary Care Unavailable FRANSICO, DR BRUNO Oliveira Admitting Unavailabl e FRANSICO, DR BRUNO Oliveira Attending Unavailabl e FRANSICO, DR BRUNO Oliveira Consulting Unavailabl e MANJULA ESTRADA Consulting Unavailable DO Blue Navarro Primary Care Provider MD Je Ruiz Attending Provider DO Blue Navarro Other Provider JUAN Valentin Attending Provider Asaad, Imad Unavailable Edi, Dr. Je Fowler Attending Unava ilable McGuinn II, Dr. Je Porras Attending Unavailable Melanie, Dr. Blue Sutherland Primary Care Caden Navarro, Dr. Blue Sutherland Primary Care Fabii raphael Daley, Dr. Je Fowler Attending Unava ilable Edi, Dr. Je Fowler Attending Unava ilable Edi, Dr. Je Fowler Attending Unava ilable McGuinn II, Dr. Je Porras Attending Unavailable Melanie, Dr. Blue Sutherland Primary Care Freyavai labkaren Ruiz II, Dr. Je Porras Referring Unavailable Melanie, Dr. Blue Sutherland Primary Care Marissa Light Referring Unavailable Werner, Marissa Attending Unavailable Melanie, Dr. Blue Sutherland Primary Care Caden Caldera, Marissa Attending Unavailable Sara II, Dr. Je Porras Referring Unavailable Melanie, Dr. Blue Sutherland Primary Care Caden Navarro, DO Blue Primary Care Provider MD Je Ruiz Attending Provider Blue Navarro DO Primary Care Provider Melanie, DO Mcarthur Primary Care Provider MD Je Ruiz Attending Provider Melanie, DO Blue Primary Care Provider MD Je Ruiz Attending Provider Melanie, DO Blue Primary Care Provider MD Je Ruiz Attending Provider Ball, DO Blue Primary Care Provider MD Je Ruiz Attending Provider Blue Navarro DO Primary Care Provider Blue Navarro DO Primary Care Provider Blue Navarro DO Primary Care Provider Lucy Degroot MD Attending Provider Blue Navarro DO Primary Care Provider Lucy Degroot MD Attending Provider Ball DO, Blue E Primary Care Provider LUCY DEGROOT Attending Unavailable JE RUIZ Referring Unavailable BLUE NAVARRO E Primary Care Unavailable Blue Navarro DO Primary Care Provider [phone] Blue Navarro DO Attending Provider [phone] Lucy Degroot MD Attending Provider Blue Navarro DO Primary Care Provider Lucy Degroot MD Other Provider Angeline Bradley MD Attending Provider Blue Navarro DO Attending Provider Melanie, Blue Primary Care Unavailable Trabouljamie, Mourhaf Attending Unavailable Trabyola, Mourhaf Admitting Unavailable Traboulbrookei, Mourhaf Admitting Unavailable BallBlue Primary Care Unavailable Traboulbrookei, Moemilyhaf Attending Unavailable Trabyola, Moemilyhaf Admitting Unavailable Blue Navarro Primary Care Unavailable Gilma, Lucy Attending Unavailable Melanie, Blue Primary Care Unavailable Traboulssi, Mourhaf Admitting Unavailable Traboulssi, Moemilyhaf Attending Unavailable Allergies Allergy ClassificationReported Allergen(s)Allergy TypeDate of OnsetReaction(s) Facility (1 source)patient allergy list reviewed by nurse or physiciaPropensity to adverse ferlnqadm28-36-3348Pqcsrkt:TabUp Other Medications Current Medications MedicationDrug Class(es)DatesSig (Normalized)Sig (Original)acetaminophen 500 mg oral tablet (5 sources)Start: 06-13-4213nfhx 1 tablet by mouth every eight hours as needed acetaminophen (TYLENOL EXTRA STRENGTH) 500 mg tablet Take 1 tablet by mouth every 8 hours as neededfor pain or fever (specify). 60 tablet 02/09/2021 Active Comment on above:Take 1 tablet by mouth every 8 hours as needed for pain or fever (specify).alendronic acid 70 mg oral tablet (5 sources)BisphosphonateStart: 06-61-2818qreojjdiizd (FOSAMAX) 70 mg tablet Pt reports taking every 07/04/2020 ActiveComment on above:Pt reports taking every atorvastatin 10 mg oral tablet (20 sources)HMG-CoA Reductase InhibitorStart: 05-08-2022 End: 53-02-6034dooq 1 tablet by mouth once daily in the eveningCalcium (5 sources)Phosphate Binder, CalciumCALCIUM ORAL Take by mouth once daily. ActiveCALCIUM ORAL Take by mouth once daily. 0 ActiveComment on above:Take by mouth once daily.carvedilol 6.25 mg oral tablet (20 sources)alpha-Adrenergic Jermain, beta-Adrenergic BlockerStart: 02-25-2025 take 1 tablet by mouth twice daily at mealtimeStart: 05-06-2022 End: 66-70-4562xewf 1 tablet by mouth twice daily at mealtimeCarvedilol (Coreg) 6.25 mg tablet Discontinued 6.25 MG PO Twice daily 60 11 May 06, 2022 1:00am August 19, 2023 11:09am must administer with a meal/fooddiazePAM 5 mg oral tablet (20 sources)BenzodiazepineStart: 09-25-2024 End: 69-25-3518acno 1 tablet by mouth twice dailyStart: 05-05-2022 End: 97-45-3467obre 1 tablet by mouth every six hours as needed for anxiety Diazepam 5 mg tablet Discontinued 5 MG PO Every 6 hours as needed for anxiety 60 30 5 March 03, 2024 5:56pm September 25, 2024 5:42pm Generalized anxiety disorder Generalized anxiety disordertake 1 tablet by mouth three times daily as neededdiazePAM (Valium) 5 mg tablet Take 1 tablet (5 mg) by mouth 3 times a day as needed. ActiveComment on above:Take 5 mg by mouth every 6 hours as needed. docusate sodium 100 mg oral capsule (7 sources)Start: 32-62-1957cvqu 1 capsule by mouth twice dailydocusate sodium (COLACE) 100 mg capsule Take 1 capsule by mouth twice daily. 60 capsule 1 02/09/2021 Activetake 1 capsule by mouth every twenty-four hoursColace 100 MG 1 capsule as needed Orally Once a day ActiveComment on above:Take 1 capsule by mouth twice daily.furosemide 40 mg oral tablet (20 sources)Loop DiureticStart: 32-01-1705qhjs 1 tablet by mouth once daily Start: 09-22-2024 End: 10-61-7535Hwsjvfpump 40 mg tablet Discontinued 0 .ROUTE .COMPLEX 180 3 September 22, 2024 12:24pm December 23, 2024 6:53am TAKE 1 TABLET BY MOUTH 1 - 2 TIMES A DAY NEEDEDStart: 10-06-2023 End: 57-74-4343ulun 1 tablet by mouth once dailyFurosemide 40 mg tablet Discontinued 0 .ROUTE .COMPLEX 90 3 October 06, 2023 10:04am September 22, 2024 1 2:24pm TAKE 1 TABLET BY MOUTH EVERY DAY FOR 30 DAYSStart: 07-23-2020 End: 40-04-4962zvpo 1 tablet by mouth once dailyFurosemide 40 mg Tablet Discontinued 40 MG PO Daily at 0800 90 90 2 May 13, 2022 1:00am October 06, 2023 10:04amFurosemide 40 MG TAKE 1 TABLET BY MOUTH 1-2 TIMES A DAY NEEDED ActiveComment on above:Take 40 mg by mouth once daily.LORazepam 0.5 mg oral tablet (5 sources)Benzodiazepinetake 0.5 mg by mouth every twelve hours as needed LORazepam (ATIVAN) 0.5 mg Take 0.5 mg by mouth twice daily as needed. Active Comment on above:Take 0.5 mg by mouth twice daily as needed.magnesium hydroxide 80 mg/ml oral suspension (5 sources)magnesium hydroxide (MILK OF MAGNESIA) 400 mg/5 mL suspension Take by mouth once daily as needed. ActiveComment on above:Take by mouth once daily as needed.magnesium oxide 400 mg oral tablet (20 sources)Start: 33-77-8330zdzg 1 tablet by mouth twice dailyMagnesium Oxide 400 (240 Mg) MG Oral Tablet TAKE 1 TABLET BY MOUTH TWICE DAILY Quantity: 180 Refills: 3 Ordered: 22-Aug-2022 Marissa Maurice Start : 31-May-2022 ActiveStart: 65-67-3826bvhl 1 tablet by mouth once dailyMagnesium Oxide 400 (240 Mg) MG Oral Tablet TAKE 1 TABLET BY MOUTH EVERY DAY Quantity: 30 Refills: 3 Ordered: 31-May-2022 Lucy Degroot MD Start : 31-May-2022 ActiveStart: 05-08-2022 End: 19-96-1350fyld 1 tablet by mouth once dailytake 1 tablet by mouth once daily at mealtimetake 1 tablet by mouth once daily at mealtimeMagnesium Oxide 400 (240 Mg) MG 1 tablet with food Orally Once a day Edqges52 hr metoprolol succinate 25 mg extended release oral tablet (4 sources)beta-Adrenergic BlockerStart: 12-25-2024 End: 65-33-4030veul 1 tablet by mouth once dailymetoprolol succinate XL (Toprol- XL) 25 mg 24 hr tablet Indications: Essential hypertension, benign , Stress- induced cardiomyopathy Take 1 tablet (25 mg) by mouth once daily. Do not crush or chew. 90 tablet 3 12/25/2024 12/25/2025 ActiveStart: 12-25-2024 End: 57-93-9621ibsb 1 capsule by mouth once dailyMetoprolol Succinate 25 mg capsule,sprinkle,ER 24hr Discontinued 25 MG PO Daily 30 0 December 25, 2024 12:00am February 25, 2025 10:48amMULTI-VITAMIN ORAL (5 sources)MULTI-VITAMIN ORAL Take by mouth once daily. ActiveMULTI-VITAMIN ORAL Take by mouth once daily. 0 ActiveComment on above:Take by mouth once daily. multivitamin tablet (1 source)take 1 tablet by mouth once dailymultivitamin tablet Take 1 tablet by mouth once daily. Activenaloxone hydrochloride 40 mg/ml nasal spray (10 sources)Opioid AntagonistStart: 99-54-4870dnnksopu (NARCAN) 4 mg/actuation nasal spray Use 1 spray in one nostril as needed for overdose. Mayrepeat every 2 to 3 min in alternating nostrils until medical assistance is available 1 Box 02/09/2021 ActiveComment on above:Use 1 spray in one nostril as needed for overdose. May repeat every 2 to 3 min in alternating nostrils until medical assistance is availablepantoprazole 20 mg delayed release oral tablet (10 sources)Proton Pump InhibitorStart: 29-29-5525ebos 1 tablet by mouth once dailypantoprazole DR (PROTONIX) 20 mg tablet Take 1 tablet by mouth once daily for 14 days. 14 tablet 02/09/2021 ActiveStart: 65-91-1281wodq 1 tablet by mouth once dailypantoprazole DR (PROTONIX) 40 mg tablet Take 1 tablet by mouth once daily. 30 tablet 01/21/2021 ActiveComment on above:Take 1 tablet by mouth once daily.Take 1 tablet by mouth once daily for 14 days.traMADol hydrochloride 50 mg oral tablet (20 sources)Opioid AgonistStart: 63-75-6193byeh 1 tablet by mouth every twenty- four hourstraMADol HCl 50 MG 1 tablet as needed Orally Once a day for 30 days Dec, ActiveStart: 05-05-2022 End: 49-09-0759bsjp 1 tablet by mouth every six hours as needed for painTramadol 50 mg tablet Discontinued 50 MG PO Every 6 hours as needed for Pain May 05, 2022 1:00am February 25, 2025 10:25amtake 1 tablet by mouth three times dailytraMADol HCl - 50 MG Oral Tablet TAKE 1 TABLET 3 TIMES DAILY. Quantity: 0 Refills: 0 Ordered: 13-May-2022 DO ActiveComment on above:Take 50 mg by mouth every 6 hours as needed for pain. Completed/Discontinued Medications MedicationDrug Class(es)DatesSig (Normalized)Sig (Original)amLODIPine 2.5 mg oral tablet (20 sources)Dihydropyridine Calcium Channel BlockerStart: 08-22-2023 End: 75-80-0438lswh 1 tablet by mouth once daily in the eveningAmlodipine 2.5 mg tablet Discontinued 2.5 MG PO Daily 90 90 3 August 22, 2023 12:00am December 25, 2024 1:37pm Take in eveningStart: 08-19-2023 End: 65-54-8473exbl 1 tablet by mouth twice dailyAmlodipine 10 mg tablet Discontinued 10 MG PO Twice daily August 19, 2023 12:00am August 22, 2023 10:18amStart: 07-27-2023 End: 38-54-1109mrue 1 tablet by mouth once dailyAmlodipine 5 mg tablet Discontinued 5 MG PO Daily August 22, 2023 12:00am December 25, 2024 1:37pmStart: 09-05-2022 End: 43-78-4342dbwo 1 tablet by mouth twice dailyamLODIPine (Norvasc) 2.5 mg tablet Take 1 tablet (2.5 mg) by mouth 2 times a day. 0 03/18/2023 05/01/2023 Discontinued ()Start: 60-65-3634fgmt 1 tablet by mouth every twenty-four hoursamLODIPine Besylate 2.5 MG 1 tablet Orally Once a day for 30 days Sep, ActiveStart: 05-05-2022 End: 21-51-8135yhpf 1 tablet by mouth once dailyAmlodipine 5 mg tablet Discontinued 5 MG PO Daily May 05, 2022 1:00am May 09, 2022 12:39pm take 1 tablet by mouth twice dailyamLODIPine Besylate 10 MG TAKE 1 TABLET BY MOUTH TWICE A DAY FOR 30 DAYS Activeaspirin 81 mg delayed release oral tablet (20 sources)Platelet Aggregation Inhibitor, Nonsteroidal Anti-inflammatory Drug Start: 05-08-2022 End: 25-88-1561fcrj 1 tablet by mouth once dailyAspirin 81 mg Tablet,Delayed Release (Dr/Ec) Discontinued 81 MG PO Daily 30 May 08, 2022 1:00am August 19, 2023 11:09amStart: 10-21-2937vblq 1 tablet by mouth twice dailyaspirin, enteric coated (ECOTRIN LOW STRENGTH) 81 mg EC tablet Take 1 tablet by mouth twice daily. 60 tablet 01/21/2021 ActiveComment on above:Take 1 tablet by mouth twice daily.citalopram 20 mg oral tablet (20 sources)Serotonin Reuptake InhibitorStart: 10-05-2023 End: 73-40-7091snvh 1 tablet by mouth once daily at bedtimeCitalopram 20 mg tablet Discontinued 0 .ROUTE .COMPLEX 90 1 August 22, 2024 6:53am February 8:24am TAKE 1 TABLET BY MOUTH EVERYDAY AT BEDTIMEStart: 07-09-2020 End: 93-90-4430ikbh 1 tablet by mouth at bedtimeCitalopram 20 mg tablet Discontinued 20 MG PO Bedtime May 05, 2022 1:00am October 05, 2023 4:22pm Comment on above:TAKE 1 TABLET BY MOUTH EVERYDAY AT BEDTIMEclindamycin 300 mg oral capsule (20 sources)Lincosamide AntibacterialStart: 05-06-2022 End: 93-65-8422ucre 2 capsules by mouth three times dailyClindamycin Hcl 300 mg capsule Discontinued 600 MG PO Three times daily 12 2 0 May 06, 2022 1: 00am May 13, 2022 11:20amStart: 05-06-2022 End: 36-01-4018nmhz 600 mg by mouth three times dailyClindamycin Hcl Discontinued 600 MG PO Three times daily 05 06May 06, 2022 1:00am May 13, 2022 11:20amgabapentin 300 mg oral capsule (20 sources)Anti-epileptic AgentStart: 05-05-2022 End: 37-18-8736xndl 1 capsule by mouth once dailyGabapentin 300 mg capsule Discontinued 300 MG PO Daily May 05, 2022 1:00am August 19, 2023 11:09am Start: 86-19-3780yhac 1 capsule by mouth three times dailygabapentin (NEURONTIN) 300 mg capsule Take 1 capsule by mouth three times daily for 30 days. 90 capsule 12/18/2020 ActiveComment on above:Take 1 capsule by mouth three times daily for 30 days.lisinopril 5 mg oral tablet (20 sources)Angiotensin Converting Enzyme InhibitorStart: 14-46-0963zvbo 1 tablet by mouth every twenty-four hoursLisinopril 10 MG 1 tablet Orally Once a day for 90 days Jul, ActiveStart: 05-08-2022 End: 69-87-6990dvps 1 tablet by mouth once dailyLisinopril 5 mg Tablet Discontinued 5 MG PO Daily 01 09May 08, 2022 1:00am August 19, 2023 11 :10amStart: 05-05-2022 End: 93-84-8233gwbc 1 tablet by mouth once dailyLisinopril 30 mg tablet Discontinued 30 MG PO Daily May 05, 2022 1:00am May 09, 2022 12:39pm take 2 tablets by mouth once dailylisinopril (ZESTRIL, PRINIVIL) 10 mg tablet Take 20 mg by mouth once daily. ActiveComment on above:Take 20 mg by mouth once daily. nitrofurantoin, macrocrystals 25 mg / nitrofurantoin, monohydrate 75 mg oral capsule (8 sources)Nitrofuran AntibacterialStart: 08-22-2024 End: 90-60-9573fkfr 1 capsule by mouth every twelve hours at mealtime Nitrofurantoin Monohyd/M-Cryst 100 mg capsule Discontinued 100 MG PO Every 12 hours 10 5 0 November 06, 2024 11:33am February 25, 2025 10:25am must administer with a meal/foodondansetron 4 mg disintegrating oral tablet (20 sources)Serotonin-3 Receptor AntagonistStart: 05-05-2022 End: 33-37-7077dqzj 1 tablet by mouth every six hours as needed for nausea and vomitingOndansetron 4 mg Tablet,Disintegrating Discontinued 4 MG PO Q6H as needed for Nausea And Vomiting May 05, 2022 1:00am August 19, 2023 11:10amStart: 10-73-2553voph 1 tablet by mouth every eight hours as needed ondansetron (ZOFRAN) 4 mg tablet Take 1 tablet by mouth every 8 hours as needed for nausea/vomiting(For Nausea). 10 tablet 02/09/2021 Activetake 1 tablet by mouth every six hoursOndansetron HCl - 4 MG Oral Tablet TAKE 1 TABLET Every 6 hours PRN Quantity: 0 Refills: 0 Ordered: 13-May-2022 DO ActiveComment on above: Take 1 tablet by mouth every 8 hours as needed for nausea/vomiting (For Nausea). potassium chloride 20 meq extended release oral tablet (20 sources)Start: 05-05-2022 End: 40-23-5946jtrh 1 tablet by mouth once dailyPotassium Chloride 20 mEq Tablet Extended Release Discontinued 20 MEQ PO Daily May 05, 2022 1:00am May 09, 2022 12:39pmpredniSONE 20 mg oral tablet (10 sources)Start: 01-15-2024 End: 57-91-8996Fqarqsfoqr 20 mg tablet Discontinued 20 MG PO As Directed 18 0 January 15, 2024 12:00am August 22, 2024 10:07am 1 tab tid w/ food x 3 days, then bid w/ food x 3 days, then qd w/ food x 3 dayssulfamethoxazole 800 mg / trimethoprim 160 mg oral tablet (20 sources)Dihydrofolate Reductase Inhibitor Antibacterial, Sulfonamide AntimicrobialStart: 05-05-2022 End: 64-72-5379yaax 1 tablet by mouth three times dailySulfamethoxazole- Trimethoprim 800-160 mg tablet Discontinued 800 TAB PO Three times daily May 05, 2022 1:00am May 09, 2022 12:39pmvalsartan 160 mg oral tablet (20 sources)Angiotensin 2 Receptor BlockerStart: 08-19-2023 End: 98-03-9173mvza 1 tablet by mouth twice dailyValsartan 160 mg tablet Discontinued 160 MG PO Twice daily 180 90 3 August 22, 2023 10:44am November 10, 2024 6:48pmStart: 30-48-5538wagj 1 tablet by mouth every twelve hoursValsartan 160 MG 1 tablet Orally Twice a day Aug, ActiveStart: 08-22-2022 End: 75-15-4710ajoa 1 tablet by mouth once dailyvalsartan (Diovan) 160 mg tablet Indications: Essential hypertension, benign Take 1 tablet (160 mg)by mouth once daily. 90 tablet 3 11/28/2023 11/27/2024 Active Problems Active Problems Problem ClassificationProblemDateDocumented DateEpisodic/ChronicAcute myocardial infarction (20 sources)Myocardial infarction; Translations: [Non-ST elevation (NSTEMI) myocardial infarction]Onset: [id number] on above:Problem List clean-up per request of Phys. EHR CmteAllergic reactions (3 sources)Allergic contact dermatitis, unspecified cause; Translations: [Contact dermatitis and other eczema,unspecified cause]49-84-8344ZgomxddvUbmlolx disorders (20 sources)Generalized anxiety disorder; Translations: [Generalized anxiety disorder]ChronicCardiac dysrhythmias (20 sources)Nonsustained ventricular tachycardia ; Translations: [Nonsustained ventricular tachycardia]52-65-1621KiyzpueMbbpdqo on above:Problem List clean-up per request of Phys. EHR CmteCardiac dysrhythmias (20 sources)Bradycardia; Translations: [Bradycardia, unspecified]05-05-2022 EpisodicComment on above:Problem List clean-up per request of Phys. EHR Cmte Chronic ulcer of skin (1 source)Chronic ulcer of skin; Translations: [Non-pressure chronic ulcer of skin of other sites with unspecified severity]Onset: 24-71-6192CytlcvpCehcfltois associated with dizziness or vertigo (14 sources)Benign paroxysmal positional vertigo; Translations: [Benign paroxysmal vertigo, bilateral]Onset: 46-04-9055DriotlovQymokldzjn disorders (20 sources)Heart block ; Translations: [Conduction disorder, unspecified]Onset: 05-06-2022 Resolved: [id number] on above:Problem List clean-up per request of Phys. EHR CmtePPMCongestive heart failure; nonhypertensive (20 sources)Acute exacerbation of chronic congestive heart failure; Translations: [Heart failure, unspecified]93-16-9434JskvbwgYvjiqnw on above: Problem List clean-up per request of Phys. EHR CmteCoronary atherosclerosis and other heart disease (14 sources)Coronary arteriosclerosis; Translations: [Coronary atherosclerosis of unspecified type of vessel, ione or graft]Onset: 658429-17-6630 ChronicDeficiency and other anemia (1 source)Anemia due to chronic blood loss; Translations: [Iron deficiency anemia secondary to blood loss (chronic)]Onset: 63-40-1052HmqtumsMamnsrtf mellitus with complications (20 sources)Hyperglycemia due to type 2 diabetes mellitus; Translations: [Type 2 diabetes mellitus with hyperglycemia] Resolved: 76-42-6896YpahoynVdfypgiy mellitus without complication (1 source)Type 2 diabetes mellitus without complication; Translations: [Diabetes mellitus without mention of complication, type II or unspecified type, not stated as uncontrolled]Onset: 49-64-6571BwhyuriSfwsmeor mellitus without complication (11 sources)Impaired fasting glycemia; Translations: [Impaired fasting glucose] EpisodicDisorders of lipid metabolism (20 sources)Hyperlipidemia, group A; Translations: [Pure hypercholesterolemia, unspecified]Onset: 15-91-2732EleysbmFyzkwdpvq hypertension (20 sources)Essential hypertension; Translations: [Essential (primary) hypertension]Onset: 671710-79-8446UltwdtaHmhmxzu on above:Problem List clean-up per request of Phys. EHR CmteGenitourinary symptoms and ill-defined conditions (11 sources)Dysuria; Translations: [Dysuria]EpisodicHeart valve disorders (5 sources)Aortic valve regurgitation; Translations: [Nonrheumatic aortic (valve) insufficiency]Onset: 147105-26-3470YvxrwfcHozfrsugisy (20 sources)Hemorrhoids; Translations: [Unspecified hemorrhoids]05-07-2022 EpisodicComment on above:Problem List clean-up per request of Phys. EHR Cmte Immunizations and screening for infectious disease (1 source)Vaccination given; Translations: [Encounter for immunization]Episodic Inflammation; infection of eye (except that caused by tuberculosis or sexually transmitteddisease) (12 sources)Acute follicular conjunctivitis of left eye; Translations: [Acute follicular conjunctivitis, left eye]EpisodicJoint disorders and dislocations; trauma-related (19 sources)Unspecified dislocation of right hip, subsequent encounter; Translations: [Dislocation of right hip, subsequent encounter]EpisodicMenopausal disorders (1 source)Primary ovarian failure; Translations: [Other primary ovarian failure] Onset: 49-38-7001ZbwaeieJesfaafilmvzyt (20 sources)Localized, primary osteoarthritis of the pelvic region and thigh; Translations: [Unilateral primaryosteoarthritis, right hip]Onset: 01-14-2015 ChronicOsteoporosis (18 sources)Primary osteoporosis; Translations: [Age-related osteoporosis without current pathological fracture]ChronicOther aftercare (2 sources)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 EHR CmteOther and ill-defined heart disease (13 sources)Takotsubo syndrome; Translations: [Takotsubo syndrome]Onset: 710475-49-8404SfyrpmfTjlwr and unspecified benign neoplasm (19 sources)History of polyp of colon; Translations: [Personal history of colonic polyps]EpisodicOther congenital anomalies (1 source)Congenital spondylolysis of lumbosacral region; Translations: [Congenital spondylolysis, lumbosacral region]Onset: 09-58-0554AtjydfwExnqs connective tissue disease (1 source)History of revision of right total hip arthroplasty; Translations: [Presence of right artificial hip joint]ChronicOther connective tissue disease (11 sources)History of repair of hip joint; Translations: [Presence of right artificial hip joint]Onset: 476182-37-7734YcarwdjYxyph connective tissue disease (19 sources)History of total replacement of right hip joint; Translations: [Presence of right artificial hip joint]30-67-0945JbxgqekUenpl connective tissue disease (1 source)Presence of right artificial hip joint; Translations: [Total hip replacement Prosthesis]ChronicOther diseases of veins and lymphatics (16 sources)Peripheral venous insufficiency; Translations: [Venous insufficiency (chronic) (peripheral)]EpisodicOther diseases of veins and lymphatics (3 sources)Venous insufficiency (chronic) (peripheral)EpisodicOther ear and sense organ disorders (7 sources)Hearing loss of right ear; Translations: [Unspecified hearing loss, right ear]94-54-1030EbexxqzYcpyz ear and sense organ disorders (7 sources)Unspecified hearing loss, right ear; Translations: [Unspecified hearing loss]04-68-1171ZtzmxejMgrzt ear and sense organ disorders (7 sources)Impacted cerumen; Translations: [Impacted cerumen, unspecified ear] 28-02-5463ItkmfxymAityx ear and sense organ disorders (4 sources)Impacted cerumen, unspecified ear; Translations: [Impacted cerumen] 93-56-2564IdxurpwkXoxbg ear and sense organ disorders (10 sources)Tinnitus; Translations: [Tinnitus, unspecified ear]12-05-2023 EpisodicOther ear and sense organ disorders (3 sources)Tinnitus, unspecified ear; Translations: [Tinnitus, unspecified] 39-92-9830XfqtxolqOwcel gastrointestinal disorders (20 sources)Constipation; Translations: [Constipation, unspecified]05-07-2022 EpisodicComment on above:Problem List clean-up per request of Phys. EHR Cmte Other gastrointestinal disorders (4 sources)Constipation, unspecified; Translations: [Constipation, unspecified] 11-04-9498ZdxcpyckNqgqn gastrointestinal disorders (11 sources)Chronic constipation; Translations: [Other constipation]Episodic Other gastrointestinal disorders (11 sources)Altered bowel function; Translations: [Change in bowel habit] EpisodicOther hereditary and degenerative nervous system conditions (18 sources)Restless legs; Translations: [Restless legs syndrome]ChronicOther hereditary and degenerative nervous system conditions (2 sources)Restless legs syndromeChronicOther inflammatory condition of skin (4 sources)Brachioradial pruritus; Translations: [Pruritus, unspecified] 79-05-9907RdhwaitrNmjlw injuries and conditions due to external causes (1 source)History of fall; Translations: [History of falling]EpisodicOther lower respiratory disease (11 sources)Dyspnea on exertion; Translations: [Other forms of dyspnea]Episodic Other lower respiratory disease (1 source)Dyspnea; Translations: [Other forms of dyspnea]EpisodicOther nervous system disorders (11 sources)Salter's palsy; 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]EpisodicOther non- traumatic joint disorders (3 sources)Pain in right hip joint; Translations: [Pain in right hip]Onset: [id number] nutritional; endocrine; and metabolic disorders (12 sources)Obesity; Translations: [Obesity, unspecified]ChronicOther nutritional; endocrine; and metabolic disorders (5 sources)Overweight in adulthood with body mass index of 25 or more but less than 30; Translations: [Overweight]Onset: [id number] nutritional; endocrine; and metabolic disorders (8 sources)Overweight; Translations: [Overweight]07-13-8836EwbdrsokUsjwr nutritional; endocrine; and metabolic disorders (1 source)Overweight; Translations: [Overweight]39-54-1020EtcxghnxEirnc nutritional; endocrine; and metabolic disorders (2 sources)Body mass index (BMI) 25.0-25.9, adult; Translations: [Body mass index (BMI) 25.0-25.9, adult]Onset: 14-80-0098PxxqwxorDmrdw upper respiratory disease (10 sources)Hoarse; Translations: [Dysphonia]04-18-7555KmcqrdivQykkm upper respiratory disease (3 sources)Dysphonia; Translations: [Dysphonia]42-71-4060WatxnowgYixuqg media and related conditions (8 sources)Dysfunction of eustachian tube; Translations: [Unspecified Eustachian tube disorder, unspecified ear]74-76-6159NbegwlerLxxiiprc codes; unclassified (18 sources)Asymptomatic menopausal state; Translations: [Menopause]Episodic Residual codes; unclassified (1 source)Edema, unspecified; Translations: [EDEMA UNSPECIFIED]Onset: 08-29-2022 EpisodicResidual codes; unclassified (1 source)Postmenopausal state; Translations: [Asymptomatic menopausal state] EpisodicResidual codes; unclassified (1 source)Preventive procedure; Translations: [Encounter for other specified prophylactic measures]EpisodicResidual codes; unclassified (1 source)Pain; Translations: [Pain, unspecified]25-86-5973YxyptcviDcknsjsu codes; unclassified (5 sources)Mammogram declined; Translations: [Procedure and treatment not carried out because of patient's decision for unspecified reasons]08-22-2024 EpisodicResidual codes; unclassified (2 sources)Procedure and treatment not carried out because of patient's decision for unspecified reasons; Translations: [Surgical or other procedure not carried out because of patient's decision]77-21-4489GgtbssvcTbrncsdh codes; unclassified (2 sources)Edema of lower extremity; Translations: [Localized edema]Onset: 234905-22-3007HnolpjlxEzbkbosrstd failure; insufficiency; arrest (adult) (20 sources)Acute respiratory failure; Translations: [Acute respiratory failure with hypoxia]89-52-5915TharonfvNasfqoj on above:Problem List clean-up per request of Phys. EHR CmteSpondylosis; intervertebral disc disorders; other back problems (20 sources)Degeneration of lumbar intervertebral disc; Translations: [Other intervertebral disc degeneration, lumbar region]Onset: ChronicSubstance-related disorders (18 sources)Tobacco user; Translations: [Nicotine dependence, cigarettes, in remission]ChronicUnclassified (1 source)CONTACT W/AND (SUSP) EXPOS COVID-19; Translations: [CONTACT W/AND (SUSP) EXPOS COVID-19]Onset: 81-44-2314Heutxkubmsjn (1 source)Other ventricular tachycardia; Translations: [Other ventricular tachycardia]Onset: 42-14-2708Lgokdqd tract infections (20 sources)Urinary tract infectious disease; Translations: [Urinary tract infection, site not specified]59-60-0663EubgfiaeAkghmse on above:Problem List clean-up per request of Phys. EHR CmteViral infection (1 source)Disease caused by 2019-nCoV; Translations: [COVID-19] Past or Other Problems Problem ClassificationProblemDateDocumented DateEpisodic/ChronicOther gastrointestinal disorders (1 source)Disorder of digestive system; Translations: [Personal history of other diseases of digestive disease]Onset: 70-06-4932TwclhvcjQusen lower respiratory disease (4 sources)Shortness of breath; Translations: [SHORTNESS OF BREATH]Onset: 08-37-4923HauhhhpfPufrv nervous system disorders (3 sources)Myasthenia gravis; Translations: [Myasthenia gravis without (acute) exacerbation]Onset: 01-20-2021 Resolved: [id number] non-traumatic joint disorders (1 source)Arthralgia of the pelvic region and thigh; Translations: [Pain in joint, pelvic region and thigh]Onset: 31-58-6739WplacfrhHdilt non-traumatic joint disorders (3 sources)Hip pain; Translations: [Pain in right hip]Onset: 11-12-2020 13-25-5452HvhamhwiBbhws nutritional; endocrine; and metabolic disorders (1 source)Body mass index 25-29 - overweight; Translations: [Body mass index (BMI) 26.0-26.9, adult]Onset: 60-25-6180XceswnbtMaqedwno codes; unclassified (5 sources)Swelling; Translations: [Edema, unspecified]Onset: 01-20-2021 48-95-7061JdbycmwxZfifhoqt codes; unclassified (11 sources)Body mass index 20-24 - normal; Translations: [Body Mass Index between 19-24, adult]Onset: 054107-63-1406IetlksinJbblnjto codes; unclassified (1 source)Requires influenza virus vaccination; Translations: [Need for prophylactic vaccination and inoculation, Influenza]Onset: 40-01-6248Kkdorzqa Screening and history of mental health and substance abuse codes (8 sources)Ex-smoker; Translations: [Personal history of tobacco use]Onset: 63-62-7762UhjumnbwJgrqbeg on above:40-50 years ago;Unclassified (16 sources)NSVT (nonsustained ventricular tachycardia); Translations: [NSVT (nonsustained ventricular tachycardia)]Unclassified (1 source)NSVT (nonsustained ventricular tachycardia) I47.29Unclassified (2 sources)Onset: 11-28-2023 Resolved: [id number] Results Test NameValueInterpretationReference XgrgfEuwkznmqJvY1k HPLC (Bld) [Mass fraction]Ordered By: Blue Navarro on 66-18-8183AtC2r (Bld) [Mass fraction]6.5 % [facility] TownshipECG [address] [place] 95-07-4158XB sequential pacemaker [facility]ABrown [facility] Work Phone: Laboratory - Chemistry and Chemistry - challengeon 87-13-9403Cnrqpilxl Ql (U)NegativeK[facility]tering Health Washington TownshipGlucose (U) [Mass/Vol]NegativeK[facility]tering Health Washington TownshipKetones Ql (U)Negative [facility] TownshippH (U)9.0 [pH][facility] Specific gravity (U) [Rel density]1.000[facility] Urobilinogen (U) [Mass/Vol]0.2 mg/dLKettering Health Washington TownshipLaboratory - Specimen informationon 92-67-6499Hjlhepabtd (U)cloudyK[facility]tering Health Washington TownshipColor (U)yellowK[facility] Health [facility] TownshipLaboratory - Urinalysison 02-83-4363Yqrwpsvno esterase Test strip Ql (U)+++[facility] TownshipNitrite Ql (U)NegativeK[facility]tering Health [facility] TownshipProtein Ql (U)+[facility] TownshipNo Panel Informationon 64-16-0986Ujibj Occult Blood+++[facility] TownshipBasophils Auto (Bld) [#/Vol]on 30-19-3050Beouccndn (Bld) [#/Vol]Automated basophil count0.0-0.1FPremier Health Upper Valley Medical CenterBasophils/100 WBC Auto (Bld)on 86-00-3857Zlaetseww/100 WBC (Bld)Automated basophil %0.2-2.0[facility] TownshipCholesterol in LDL Calc [Mass/Vol]on 65-38-1474Nfgyqqbpxhz in LDL [Mass/Vol]Cholesterol in LDL [Mass/volume] in Serum or Plasma by calculationKettering Health Washington TownshipComment on above:<100 mg/dl UZRRQSJ056-726 mg/dl NEAR OR ABOVE YCEBDYT297- 159 mg/dl BORDERLINE MXOR438-930 mg/dl HIGH>190 mg/dl VERY HIGHCholesterol in VLDL Calc [Mass/Vol]on 21-13-0866Scavybayeye in VLDL [Mass/Vol]Cholesterol in VLDL [Mass/volume] in Serum or Plasma by calculationKettering Health Washington TownshipEosinophils/100 WBC Auto (Bld)on 56-28-2647Xfxlbrxvyzm/100 WBC (Bld) Automated eosinophil %0.9-7.0[facility] TownshipErythrocyte distribution width Auto (RBC) [Ratio]on 94-17-7966Yqjalwyqfit distribution width (RBC) [Ratio]Erythrocyte distribution width [Ratio] by Automated count11.0-15.0 [facility] TownshipEstimated glomerular filtration rate (GFR) non- Americanon 48-98-0521IAS/1.73 sq M.predicted among non-blacks MDRD (S/P/Bld) [Vol rate/Area]Estimated glomerular filtration rate (GFR) non->=60 mL/min/1.73m 2FPremier Health Upper Valley Medical CenterGlobulin Calc (S) [Mass/Vol]on 15-76-1156Ciaamqew (S) [Mass/Vol]Serum globulin measurement by calculation (mass/volume)[facility] TownshipGlucose mean value [Mass/volume] in Blood Estimated from glycated hemoglobinon 44-61-7892Nircwsn glucose Estimated from glycated hemoglobin (Bld) [Mass/Vol]Glucose mean value [Mass/volume] in Blood Estimated from glycated hemoglobinKettering Health Washington TownshipHematocrit Auto (Bld) [Volume fraction]on 97-09-3339Tkodwhpeqd (Bld) [Volume fraction]Hematocrit [Volume Fraction] of Blood by Automated count 36.0-48.0[facility] TownshipHemoglobin A1c percentageon 09-02-2024 HbA1c (Bld) [Mass fraction]Hemoglobin A1c percentageHigh4.5-6.2FPremier Health Upper Valley Medical CenterComment on above:ADA RECOMMENDED LIMIT 4.0 - 6.0ADA THERAPEUTIC TARGET < 7.0ACTION SUGGESTED> 7.0Hemoglobin [Mass/volume] in Bloodon 21-40-5834Wcjoclhwwj (Bld) [Mass/Vol]Hemoglobin [Mass/volume] in Blood12.0-16.0 [facility] TownshipLaboratory - Chemistry and Chemistry - challengeon 35-12-6057Saqyuoy [Mass/Vol]3.4 g/dL3.4-5.0[facility] TownshipALP [Catalytic activity/Vol]86 U/T73-119VthgcsfgnKettering Health Washington TownshipALT [Catalytic activity/Vol]23 U/Z72-82KylrgleqjK[facility] AST [Catalytic activity/Vol]25 U/X46-27EeuoldsxkK[facility] Bilirubin [Mass/Vol]0.4 mg/dL0.2-1.0[facility] TownshipCalcium [Mass/Vol]9.1 mg/dL8.5-10.1FPremier Health Upper Valley Medical CenterChloride [Moles/Vol] 101 mmol/V39-007UazrmbiwrKettering Health Washington TownshipCholesterol [Mass/Vol]209 mg/dL High<=200[facility] TownshipCholesterol in HDL [Mass/Vol]91 mg/dL Ubuj44-78HsyvxrqjkK[facility] Health [facility] TownshipComment on above:> or =60 mg/dl - LOW CARDIOVASCULAR RISK<40 mg/dl - HIGH CARDIOVASCULAR RISKCO2 [Moles/Vol]35.1 mmol/LHigh21.0-32.0[facility] TownshipCreatinine [Mass/Vol]0.80 mg/dL0.55-1.02[facility] TownshipGFR/1.73 sq M.predicted MDRD (S/P/Bld) [Vol rate/Area]mL/min/{1.73_m2}>=60 mL/min/1.73m 2FPremier Health Upper Valley Medical CenterGlucose [Mass/Vol]115 mg/oLJvbe32-723AtoouebhnK[facility] Health [facility] TownshipPotassium [Moles/Vol]4.0 mmol/L3.5-5.1FPremier Health Upper [facility] Center Protein [Mass/Vol]7.2 g/dL6.4-8.2FWilson Street Hospitalodium [Moles/Vol]143 mmol/U688-746EfujitlcsKettering Health Washington TownshipTriglyceride [Mass/Vol]117 mg/dL<=150[facility] TownshipUrea nitrogen [Mass/Vol]18.0 mg/dL7.0-18.0[facility] TownshipUrea nitrogen/Creatinine [Mass ratio]22.5 mg/mgK[facility] Township Laboratory - Hematology and Cell countson 17-33-4617Istmvxwd granulocytes/100 WBC (Bld)0.0 %0.0-0.5FPremier Health Upper Valley Medical CenterLeukocytes [#/volume] corrected for nucleated erythrocytes in Blood by Automated counon 81-34-3065CUK corrected for nucl RBC Auto (Bld) [#/Vol]Leukocytes [#/volume] corrected for nucleated erythrocytes in Blood by Automated coun4.0-11.0[facility] TownshipLymphocytes Auto (Bld) [#/Vol]on 16-24-7327Lhqkfqllsqa (Bld) [#/Vol]Lymphocytes [#/volume] in Blood by Automated count1.2-3.8[facility] TownshipLymphocytes/100 WBC Auto (Bld)on 09-02-2024 Lymphocytes/100 WBC (Bld)Lymphocytes/100 leukocytes in Blood by Automated count 20.5-60.0[facility] TownshipMCH Auto (RBC) [Entitic mass]on 92-37-7923AFS (RBC) [Entitic mass]MCH [Entitic mass] by Automated count26.7-34.0 [facility] TownshipMCHC Auto (RBC) [Mass/Vol]on 65-26-9628YRER (RBC) [Mass/Vol]MCHC [Mass/volume] by Automated count29.9-35.2FPremier Health Upper Valley Medical CenterMCV Auto (RBC) [Entitic vol]on 01-32-6886QRA (RBC) [Entitic vol] MCV [Entitic volume] by Automated count81.0-99.0[facility] TownshipMicroalbumin [Mass/volume] in Urineon 00-21-9271Uctrezx DL <= 20 mg/L (U) [Mass/Vol]Microalbumin [Mass/volume] in Urine<=30.0[facility] TownshipMonocytes Auto (Bld) [#/Vol]on 45-57-2011Xmmsoiimt (Bld) [#/Vol]Automated blood monocyte count0.3-0.8[facility] TownshipMonocytes/100 WBC Auto (Bld)on 77-47-2657Zgpjfeqdy/100 WBC (Bld)Automated monocyte %1.7-12.0 [facility] TownshipNeutrophils Auto (Bld) [#/Vol]on 09-02-2024 Neutrophils (Bld) [#/Vol]Neutrophils [#/volume] in Blood by Automated count 1.4-6.5FPremier Health Upper Valley Medical CenterNeutrophils/100 WBC Auto (Bld)on 77-43-3114Jydtpqbflca/100 WBC (Bld)Automated neutrophil %Low43.0-75.0[facility] TownshipNo Panel Informationon 72-54-8064Foelbxvpjln # (Auto)0.2 10 3/uL0.0-0.7FPremier Health Upper Valley Medical CenterImmature Granulocyte # (Auto)0.00 10 3/uL0.00-0.03[facility] TownshipUrine Random Vinhhspolp85.67 mg/dL20.00-300.00[facility] TownshipPlatelet mean volume Auto (Bld) [Entitic vol]on 88-06-0172Wudquqjw mean volume (Bld) [Entitic vol]Platelet mean volume [Entitic volume] in Blood by Automated count9.5-13.5FPremier Health Upper Valley Medical CenterPlatelets Auto (Bld) [#/Vol]on 02-17-4640Dtdzhjrib (Bld) [#/Vol]Platelets [#/volume] in Blood by Automated -447WsbraklmlK[facility]tering Health Washington TownshipRBC Auto (Bld) [#/Vol]on 12-48-1842WCA (Bld) [#/Vol]Erythrocytes [#/volume] in Blood by Automated count4.20-5.40[facility] Serum or plasma albumin/globulin mass ratioon 11-13-0103Nxylbcq/Globulin [Mass ratio]Serum or plasma albumin/globulin mass ratioOhio State Harding Hospitalerum or plasma anion gap determinationon 43-42-1289Cihsa gap [Moles/Vol] Serum or plasma anion gap determinationOhio State Harding Hospitalerum or plasma total cholesterol/high density lipoprotein (HDL) cholesterol mass maria teresa 90-60-6341Hzwvbrmrzfe.total/Cholesterol in HDL [Mass ratio]Serum or plasma total cholesterol/high density lipoprotein (HDL) cholesterol mass ratKettering Health [facility] TownshipComment on above:3.3 - 4.4 LOW RISK4.4 - 7.1 AVERAGE RISK7.1 - 11.0 MODERATE RISK>11.0 HIGH RISKLaboratory - Chemistry and Chemistry - challengeon 90-96-7323Knghyfthh Ql (U)NegativeK[facility]tering Health Washington TownshipGlucose (U) [Mass/Vol]NegativeK[facility]tering Health Washington TownshipKetones Ql (U)[facility] HospitalpH (U)7.5 [pH][facility] Hard[facility] Hospitalpecific gravity (U) [Rel density]1.005[facility] TownshipUrobilinogen (U) [Mass/Vol][facility] Laboratory - Specimen informationon 91-14-4453Jymuowjeqh (U)cloudyK[facility]tering Health Washington TownshipColor (U)lightyellowK[facility] Township Laboratory - Urinalysison 42-17-2633Wrgckuxgb esterase Test strip Ql (U)+++ [facility] TownshipNitrite Ql (U)NegativeK[facility]tering Health [facility] TownshipProtein Ql (U)+[facility] TownshipNo Panel Informationon 03-45-3258Dmwmz Occult BloodNegativeK[facility] Health [facility] TownshipBasophils Auto (Bld) [#/Vol]on 99-92-4813Fiqwpjpcu (Bld) [#/Vol]0.0 10 3/uL0.0-0.1FPremier Health Upper Valley Medical CenterBasophils/100 WBC Auto (Bld)on 58-47-3429Fgvakyntz/100 WBC (Bld)0.6 %0.2-2.0[facility] Eosinophils/100 WBC Auto (Bld)on 01-12-0346Ualzdxnryay/100 WBC (Bld)2.2 %0.9-7.0 [facility] TownshipErythrocyte distribution width Auto (RBC) [Ratio]on 81-36-5424Ccrroxjarud distribution width (RBC) [Ratio]13.3 %11.0-15.0 [facility] TownshipGlucose mean value [Mass/volume] in Blood Estimated from glycated hemoglobinon 11-56-2884Udrypei glucose Estimated from glycated hemoglobin (Bld) [Mass/Vol]137 mg/dLKettering Health Washington Township Hematocrit Auto (Bld) [Volume fraction]on 91-41-1485Yeklbhgslb (Bld) [Volume fraction]40.3 %36.0-48.0[facility] TownshipHemoglobin [Mass/volume] in Bloodon 70-73-7961Llixbvmgic (Bld) [Mass/Vol]12.4 g/dL12.0-16.0 [facility] TownshipLaboratory - Hematology and Cell countson 87-58-3142HgO6z (Bld) [Mass fraction]6.4 %4.5-6.2FPremier Health Upper Valley Medical CenterComment on above:ADA RECOMMENDED LIMIT 4.0 - 6.0ADA THERAPEUTIC TARGET < 7.0ACTION SUGGESTED> 7.0Immature granulocytes/100 WBC (Bld)0.2 %0.0-0.5FPremier Health Upper Valley Medical CenterLeukocytes [#/volume] corrected for nucleated erythrocytes in Blood by Automated counon 44-45-8484SOB corrected for nucl RBC Auto (Bld) [#/Vol]6.4 10 3/uL4.0-11.0[facility] Lymphocytes Auto (Bld) [#/Vol]on 50-78-9482Dckfmvnhtpv (Bld) [#/Vol]3.0 10 3/uL 1.2-3.8[facility] TownshipLymphocytes/100 WBC Auto (Bld)on 42-13-9154Cqtcufycmfj/100 WBC (Bld)46.8 %20.5-60.0[facility] HospitalH Auto (RBC) [Entitic mass]on 76-32-8296QNQ (RBC) [Entitic mass]28.8 pg 26.7-34.0[facility] TownshipMCHC Auto (RBC) [Mass/Vol]on 89-30-2794NGNV (RBC) [Mass/Vol]30.8 g/dL29.9-35.2FPremier Health Upper Valley Medical CenterMCV Auto (RBC) [Entitic vol]on 74-34-0855UPL (RBC) [Entitic vol]93.5 fL 81.0-99.0[facility] TownshipMonocytes Auto (Bld) [#/Vol]on 69-99-7959Zkmeyzxow (Bld) [#/Vol]0.5 10 3/uL0.3-0.8[facility] TownshipMonocytes/100 WBC Auto (Bld)on 49-69-9155Nphlhkoct/100 WBC (Bld)7.3 % 1.7-12.0[facility] TownshipNeutrophils Auto (Bld) [#/Vol]on 29-74-7006Rpjejpjolde (Bld) [#/Vol]2.8 10 3/uL1.4-6.5FPremier Health Upper Valley Medical CenterNeutrophils/100 WBC Auto (Bld)on 86-03-4404Wemjoenisnf/100 WBC (Bld)42.9 % 43.0-75.0[facility] TownshipNo Panel Informationon 08-25-2023 Eosinophils # (Auto)0.1 10 3/uL0.0-0.7FPremier Health Upper Valley Medical CenterImmature Granulocyte # (Auto)0.01 10 3/uL0.00-0.03[facility] Platelet mean volume Auto (Bld) [Entitic vol]on 07-94-7379Gkxkevtx mean volume (Bld) [Entitic vol]10.0 fL9.5-13.5FPremier Health Upper Valley Medical CenterPlatelets Auto (Bld) [#/Vol]on 15-87-3929Fxogjnjik (Bld) [#/Vol]200 10 3/kB822-241 [facility] TownshipRBC Auto (Bld) [#/Vol]on 66-98-8813LVN (Bld) [#/Vol]4.31 10 6/uL4.20-5.40[facility] TownshipOffice Visit (Cardiology)on 13-52-2573Xflcow-up visitDiagnoses/Problems Assessed 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 Prior dose of carvedilol was discontinued due to myasthenia gravis Mild CAD (414.00) (I25.10) May 2022 cardiac cath minimal coronary artery disease Cardiac pacemaker (V45.01) (Z95.0) [facility] 2272 dual-chamber permanent pacemaker Implant date May device [...] more conditioned. She is working out in [place] [employer] garden and dragging the garden hose all over the place . She is very pleased with her notedimprovement. With addition of amlodipine she has noted [...] Recorded: 07Nov2022 10:45AM Heart Rate64, R Radial Jdhgtakj631, LUE, Sitting Sowzduuei39, LUE, Sitting Height5 ft 3 in Hagfgp502 lb BMI Vgerfuvcrg98.15 kg/m2 BSA Calculated1.67 Tobacco Useb) No Falls Screening (Age 18+)a) No falls within the last yea (more content not included)...NormalUH TouchworksTobacco Screening.on 05-31-5841Ezvt risk assessmenta) No falls within the last yearMP-[facility] 250 DO Work Phone: Tobacco use status CPHSb) NoMP-[facility] [place] 250 DO Work Phone: Alanine aminotransferase [Enzymatic activity/volume] in Serum or PlasmaOrdered By: Blue Navarro on 04-53-1149NYJ [Catalytic activity/Vol]13 U/L7-52[facility] TownshipBasophils Auto (Bld) [#/Vol]Ordered By: Blue Navarro on 19-52-9246Onmaesbrl (Bld) [#/Vol]0.0 10*3/uL 0.0-0.2FPremier Health Upper Valley Medical CenterBasophils/100 WBC Auto (Bld)Ordered By: Blue Navarro on 61-55-1338Tbmieecdc/100 WBC (Bld)0.4 %.[facility] TownshipCalcium [Mass/volume] in Serum or PlasmaOrdered By: Marissa Caldrea on 16-24-6542Sjmpvst [Mass/Vol]9.2 mg/dL8.6-10.3FPremier Health Upper Valley Medical Center Carbon dioxide, total [Moles/volume] in Serum or PlasmaOrdered By: Marissa Caldera on 06-59-6050FA0 [Moles/Vol]36.9 mmol/L21.0-31.0[facility] TownshipChloride [Moles/volume] in Serum or PlasmaOrdered By: Marissa Caldera on 51-19-2918Jokhhkro [Moles/Vol]98 mmol/L07-247VxipalmhgKettering Health Washington Township Cholesterol [Mass/volume] in Serum or PlasmaOrdered By: Blue Navarro on 14-16-7535Ebcnuivjzmi [Mass/Vol]199 mg/oH794-506OuwcrewpeKettering Health Washington TownshipComment on above:Chol less than 200 mg/dl low riskChol 201-239 mg/dl borderline riskChol 240 mg/dl and greater high riskCholesterol in LDL Calc [Mass/Vol]Ordered By: Blue Navarro on 88-47-0899Hgrpcgyelph in LDL [Mass/Vol]89 mg/dL0-100[facility] TownshipComment on above:LDL ATP III CLASSIFICATIONLDL less than 100 mg/dL OptimalLDL 100-129 mg/dL Near or above owgcixtDSF029-477 mg/dL Borderline highLDL 160-189 mg/dL HighLDL greater than 189 mg/dL Very highCholesterol in VLDL Calc [Mass/Vol]Ordered By: Blue Navarro on 78-84-5922Bmefsxuejcw in VLDL [Mass/Vol]32 mg/dLKettering Health Washington TownshipCreatinine [Mass/volume] in Serum or PlasmaOrdered By: Mraissa Caldera on 34-26-3278Veepcgcujk [Mass/Vol]0.70 mg/dL0.60-1.20[facility] TownshipEosinophils Auto (Bld) [#/Vol]Ordered By: Blue Navarro on 08-29-2022 Eosinophils (Bld) [#/Vol]0.1 10*3/uL0.0-0.45[facility] Eosinophils/100 WBC Auto (Bld)Ordered By: Blue Navarro on 08-29-2022 Eosinophils/100 WBC (Bld)1.9 %.[facility] TownshipErythrocyte distribution width Auto (RBC) [Ratio]Ordered By: Blue Navarro on 08-29-2022 Erythrocyte distribution width (RBC) [Ratio]13.8 %11.9-15.3FPremier Health Upper Valley Medical CenterGlucose [Mass/volume] in Serum or PlasmaOrdered By: Marissa Caldera on 80-80-0917Gwdfykk [Mass/Vol]102 mg/dE01-202YzcsqxiyjKettering Health [facility] Township Comment on above:ADA recommended reference rangeRandom Glucose Reference Range is dependent on time and content of last meal. Glucose of more than 200 mg/dL in a nonstressed, ambulatory subject supports the diagnosisof Diabetes Mellitus. Glucose mean value [Mass/volume] in Blood Estimated from glycated hemoglobin Ordered By: Blue Navarro on 54-85-2869Mtegpcl glucose Estimated from glycated hemoglobin (Bld) [Mass/Vol]148 mg/dLKettering Health Washington TownshipHematocrit Auto (Bld) [Volume fraction]Ordered By: Blue Navarro on 27-78-6322Pxrduxvggl (Bld) [Volume fraction]41.4 %34.0-46.4FPremier Health Upper [facility] Hemoglobin A1c percentageOrdered By: Blue Navarro on 89-94-0698EjC1p (Bld) [Mass fraction]6.8 %4.3-5.6FPremier Health Upper Valley Medical CenterComment on above: Increased risk for diabetes: 5.7 - 6.4diabetes: >6.4glycemic control for adults with diabetes: <7.0Hemoglobin [Mass/volume] in BloodOrdered By: Blue Navarro on 16-59-2968Qlvbyakptr (Bld) [Mass/Vol]13.3 g/dL11.8-15.4FPremier Health Upper Valley Medical CenterLaboratory - Chemistry and Chemistry - challengeOrdered By: Marissa Caldera on 06-05-2549EEG/1.73 sq M.predicted MDRD (S/P/Bld) [Vol rate/Area] mL/min/{1.73_m2}[facility] TownshipLeukocytes [#/volume] corrected for nucleated erythrocytes in Blood by Automated counOrdered By: Blue Navarro on 91-31-8180UUB corrected for nucl RBC Auto (Bld) [#/Vol]5.6 10*3/uL3.8-11.6 [facility] TownshipLymphocytes Auto (Bld) [#/Vol]Ordered By: Blue Navarro on 08-63-4601Tqryaivnfmh (Bld) [#/Vol]2.5 10*3/uL1.00-4.8[facility] TownshipLymphocytes/100 WBC Auto (Bld)Ordered By: Blue Navarro on 16-04-0249Dwlntmccwfp/100 WBC (Bld)45.0 %.[facility] MCH Auto (RBC) [Entitic mass]Ordered By: Bule Navarro on 91-44-3384YIK (RBC) [Entitic mass]28.6 pg24.7-34.3FPremier Health Upper Valley Medical CenterMCHC Auto (RBC) [Mass/Vol]Ordered By: Blue Navarro on 90-71-4448HCPP (RBC) [Mass/Vol]32.2 g/dL 32.0-35.0[facility] TownshipMCV Auto (RBC) [Entitic vol]Ordered By: Blue Navarro on 76-48-3884TXP (RBC) [Entitic vol]88.9 bJ07-654JuobuqqguKettering Health Washington TownshipMonocytes Auto (Bld) [#/Vol]Ordered By: Blue Navarro on 43-08-4218Ccshnzpkh (Bld) [#/Vol]0.4 10*3/uL0.0-0.8[facility] TownshipMonocytes/100 WBC Auto (Bld)Ordered By: Blue Navarro on 08-29-2022 Monocytes/100 WBC (Bld)7.6 %.[facility] TownshipNatriuretic peptide B [Mass/Vol]Ordered By: Blue Navarro on 11-02-5056Qsgijzdvlcy peptide B (Bld) [Mass/Vol]147.0 pg/mL5-100[facility] TownshipNeutrophils Auto (Bld) [#/Vol]Ordered By: Blue Navarro on 74-18-2830Kqduiarmkvq (Bld) [#/Vol]2.5 10*3/uL1.8-7.7FPremier Health Upper Valley Medical CenterNeutrophils/100 WBC Auto (Bld)Ordered By: Blue Navarro on 47-40-1468Nkqkzuefteg/100 WBC (Bld)45.1 % .[facility] TownshipNo Panel InformationOrdered By: Marissa Caldera on 55-86-0157Ufaoeeam Creatinine Clearance (ChemN/[facility] HospitalNo Panel Informationon 08-29-2022> 60.0NormalMP-[facility] [address] DO Work Phone: [phone]\S\8.9Ggutbi4.0-15.0MP-[facility] [address] DO Work Phone: [phone]\S\9.7Jibgkp0.6-10.3MP-[facility] [address] DO Work Phone: Comment on above:PERFORMED BY:[place] [id number] [place], [place] [id number] MEDICAL DIRECTORBARBARA DOWNING M.D.36.9\S\36.9above high dprjcetrz74.0-31.0MP-[facility] [address] DO Work Phone: [phone]\S\26Fdfkin53-091XB-Cuwjt [place] [facility] 250 DO Work Phone: [phone]\S\3.2Nseajw6.5-5.1MP-[facility] [address] DO Work Phone: [phone]\S\627Xiwwdb367-508DS-Rjmrz [place] [facility] [address] DO Work Phone: [phone])41467485.70\S\0.68Qlifex4.60-1.20MP-[facility] [facility] DO Work Phone: [phone]\S\40Brxqwo9-68JN-Qoqpb [place] [facility] 250 DO Work Phone: [phone]\S\102above high gpuopmyyy13-227FD-Pjaeg [place] [facility] 250 DO Work Phone: Comment on above:Random Glucose Reference Range is dependent on time and content of last meal. Glucose of more than 200 mg/dL in a nonstressed, ambulatory subject supports the diagnosis of Diabetes Mellitus. ADA recommended reference rangeNucleated erythrocytes [Presence] in Blood by Automated countOrdered By: Blue Navarro on 27-21-6457Ghusxjdkq RBC Auto Ql (Bld)0.1 /100{WBC}0-0.5FPremier Health Upper Valley Medical CenterPlatelet mean volume Auto (Bld) [Entitic vol]Ordered By: Blue Navarro on 92-63-7323Kcsckemb mean volume (Bld) [Entitic vol]8.7 fL6.3-10.7FPremier Health Upper Valley Medical Center Platelets Auto (Bld) [#/Vol]Ordered By: Blue Navarro on 14-95-5735Plztmiztg (Bld) [#/Vol]163 10*3/fE348-041BmwvfyzgjKettering Health Washington TownshipPotassium [Moles/volume] in Serum or PlasmaOrdered By: Marissa Caldera on 10-00-2559Ngkweecmq [Moles/Vol]3.8 mmol/L3.5-5.1FPremier Health Upper Valley Medical CenterRBC Auto (Bld) [#/Vol]Ordered By: Blue Navarro on 15-08-9518HRY (Bld) [#/Vol]4.66 10*6/uL 3.60-5.00[facility] TownshipRadiologyon 97-68-3796XR Chest 2 Views Normal-[facility] [facility] DO Work Phone: Serum or plasma anion gap determinationOrdered By: Marissa Caldera on 47-62-7160Czhjh gap [Moles/Vol]8.9 mmol/L6.0-15.0[facility] Hospitalerum or plasma high density lipoprotein (HDL) cholesterol measurementOrdered By: Blue Navarro on 60-55-2953Rovixatkslk in HDL [Mass/Vol]77 mg/cX09-63FrovzzxytKettering Health Washington TownshipComment on above:HDL CHOL ATP-III CLASSIFICATION Cardiovascular RiskHDL > or equal to 60 mg/dL LOWHDL < 40 mg/dL HIGHSerum or plasma total cholesterol/high density lipoprotein (HDL) cholesterol mass ratOrdered By: Blue Navarro on 08-29-2022 Cholesterol.total/Cholesterol in HDL [Mass ratio]2.6 {ratio}<5.0[facility] Hospitalodium [Moles/volume] in Serum or PlasmaOrdered By: Marissa Caldera on 62-84-6949Kulnpz [Moles/Vol]140 mmol/S692-984UjddonvadKettering Health Washington TownshipTriglyceride [Mass/volume] in Serum or PlasmaOrdered By: Blue Navarro on 66-28-7882Jewfdkvrgoah [Mass/Vol]163 mg/dL0-149[facility] TownshipComment on above:TRIG ATP III CLASSIFICATIONTRIG less than 150 mg/dL NormalTRIG 150-199 mg/dL Borderline highTRIG 200-500 mg/dL High TRIG greater than 500 mg/dL Very highStandard traceable to the Center for Disease Co nrtrol and Prevention (CDC) test method.Urea nitrogen [Mass/volume] in Serum or PlasmaOrdered By: Marissa Caldera on 04-36-9987Mtvw nitrogen [Mass/Vol]20 mg/dL7-25 [facility] TownshipWBC Auto (Bld) [#/Vol]Ordered By: Bleu Navarro on 43-54-9263NVV (Bld) [#/Vol]5.6 10*3/uL3.8-11.6FPremier Health Upper Valley Medical CenterOffice Visit (Cardiology)on 18-99-5212Nxeuwk-up visitDiagnoses/Problems Assessed 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 A [employer]EM[employer] after testing Chief Complaint Hospital f/u: 'still feeling weak and tired' ROSEANN DALE is being seen for follow-up of a hospitalization for weakness. Patient presents to the office ambulatory with cane and steady gait. This is initial in clinic follow-up at [facility]. May 2022 [facility] due [facility] weakness. She was noted to [...] Recently increased 1 weekago to 30 mg. Patient presents today as [...] May 12, 2022 V paced QRS 136. [place] QRS unknown. Takotsubo cardiomyopathy EF 40%. Current [...] Thymectomy History of Tumor excision Current Meds Medi (more content not included)...NormalUH TouchworksTobacco Screening.on 37-82-9393Lfltm depression screening assessmentNoMP-[facility] Vasopharm DO Work Phone: Fall risk assessmenta) No falls within the last year MP-[facility] Biom'Up 250 DO Work Phone: Tobacco use status CPHSb) NoMP-[facility] Novogenie DO Work Phone: Creatinine and Glomerular filtration rate.predicted panel (S/P/Bld)Ordered By: Julio Schreiber on 70-59-1989Lvxzzajfxb [Mass/Vol]0.76 mg/dL0.44-1.03[facility] TownshipEstimated glomerular filtration rate (GFR) non- AmericanOrdered By: Julio Schreiber on 36-12-2426FTA/1.73 sq M.predicted among non-blacks MDRD (S/P/Bld) [Vol rate/Area]> 60 mL/MinKettering Health Washington TownshipLaboratory - Chemistry and Chemistry - challengeOrdered By: Julio Schreiber on 24-31-7683Sirxdammg [Mass/Vol]2.0 mg/dL1.6-2.6FPremier Health Upper Valley Medical CenterNo Panel InformationOrdered By: Julio Schreiber on 69-66-1419Ciyfhagfy GFR ()> 60 mL/MinKettering Health Washington TownshipComment on above:GFR estimated reference range: According to KDOQI guidelines, <60 ml/min/1.73m2 is sufficient todiagnose a patient with chronic kidney disease.Pharmacy Creatinine Clearance (Chem47.32[facility] Hospitalerum or plasma anion gap determinationOrdered By: Julio Schreiber on 68-20-7832Hpcce gap [Moles/Vol]10.4 mmol/L6.0-15.0[facility] Hospitalerum or plasma calcium measurement (mass/volume)Ordered By: Julio Schreiber on 58-06-5862Xdvpjpj [Mass/Vol]8.6 mg/dL8.2-10.2FWilson Street Hospitalerum or plasma chloride measurement (moles/volume)Ordered By: Julio Schreiber on 14-21-9282Usyyyecr [Moles/Vol]98 mmol/V43-058OkjtyrsoyOhio State Harding Hospitalerum or plasma glucose measurement (mass/volume)Ordered By: Julio Schreiber on 07-25-6518Mivjivo [Mass/Vol]134 mg/tX91-247UulmidurbKettering Health Washington TownshipComment on above:ADA recommended reference rangeRandom Glucose Reference Range is dependent on time and content of last meal. Glucose of more than 200 mg/dL in a nonstressed, ambulatory subject supports the diagnosisof Diabetes Mellitus.Serum or plasma potassium measurement (moles/volume)Ordered By: Julio Schreiber on 51-58-0615Qvynoadao [Moles/Vol]3.7 mmol/L3.5-5.1FWilson [address] Hospitalerum or plasma sodium measurement (moles/volume)Ordered By: Julio Schreiber on 51-32-9313Vuplec [Moles/Vol]136 mmol/H954-195QqgcfxbteOhio State Harding Hospitalerum or plasma total carbon dioxide measurement (moles/volume) Ordered By: Julio Schreiber on 08-02-0363MM7 [Moles/Vol]31.3 mmol/L22.0-30.0 [facility] Hospitalerum or plasma urea nitrogen measurement (mass/volume)Ordered By: Julio Schreiber on 36-59-1766Ctkc nitrogen [Mass/Vol]10 mg/dL9-23[facility] TownshipActivated partial thromboplastin time (aPTT) in platelet poor plasma by coagulation aOrdered By: Parish Larkin on 58-93-1047cUKW Coag (PPP) [Time]31.0 s25.1-36.5FPremier Health [facility] Center Albumin [Mass/volume] in Serum or PlasmaOrdered By: Parish Larkin on 15-33-1036Fnwjxxm [Mass/Vol]3.2 g/dL3.2-5.5FPremier Health Upper [facility] Center Automated erythrocytes count in urine sediment (number/area)Ordered By: Parish Larkin on 56-90-6494GAO Auto (Urine sed) [#/Area]1-2 [HPF]0-4 [facility] TownshipAutomated leukocytes count in urine sediment (number/area)Ordered By: Parish Larkin on 41-30-6828XXL Auto (Urine sed) [#/Area]0-1 [HPF]0-4FPremier Health Upper Valley Medical CenterBasophils Auto (Bld) [#/Vol]Ordered By: Parish Larkin on 22-48-1407Rfgcmkutw (Bld) [#/Vol]0.1 10*3/uL0.0-0.2FPremier Health Upper Valley Medical CenterBasophils/100 WBC Auto (Bld) Ordered By: Parish Larkin on 41-85-3881Vldcjsvpx/100 WBC (Bld)1.2 %. [facility] TownshipBilirubin Test strip Ql (U)Ordered By: Parish Larkin on 39-40-8551Knemcibhz Ql (U)NegativeNegativeKettering Health Washington TownshipCOVID CepheidOrdered By: Parish Larkin on 05-12-2022 SARS-CoV-2 (COVID-19) Ab IA QlNegativeNegMartins Ferry Hospital Comment on above:This is a duplicate [employer] Xpert Xpress CoV-2/Flu/RSV Plus RNA by RT-PCR result to be used for statistical tracking purpose only.SARS-CoV-2 (COVID-19) RNA JACKSON+probe Ql (Unsp spec)[facility] SARS-CoV-2 (COVID-19) RNA JACKSON+probe Ql (Unsp spec)[facility] TownshipColor Auto (U)Ordered By: Parish Larkin on 91-45-1580Munob (U)Yellow YellowKettering Health Washington TownshipCreatinine and Glomerular filtration rate.predicted panel (S/P/Bld)Ordered By: Parish Larkin on 05-12-2022 Creatinine [Mass/Vol]0.85 mg/dL0.44-1.03[facility] Eosinophils Auto (Bld) [#/Vol]Ordered By: Parish Larkin on 05-12-2022 Eosinophils (Bld) [#/Vol]0.2 10*3/uL0.0-0.45[facility] Eosinophils/100 WBC Auto (Bld)Ordered By: Parish Larkin on 05-12-2022 Eosinophils/100 WBC (Bld)2.3 %.[facility] TownshipErythrocyte distribution width Auto (RBC) [Ratio]Ordered By: Parish Larkin on 05-12-2022 Erythrocyte distribution width (RBC) [Ratio]13.3 %11.9-15.3FPremier Health Upper Valley Medical CenterEstimated glomerular filtration rate (GFR) non- Ordered By: Parish Larkin on 77-90-1915KEF/1.73 sq M.predicted among non- blacks MDRD (S/P/Bld) [Vol rate/Area]> 60 mL/MinKettering Health Washington TownshipGlobulin Calc (S) [Mass/Vol]Ordered By: Parish Larkin on 05-12-2022 Globulin (S) [Mass/Vol]3.1 g/dLKettering Health Washington TownshipHematocrit Auto (Bld) [Volume fraction]Ordered By: Parish Larkin on 13-96-2186Fpfbodshsv (Bld) [Volume fraction]37.3 %34.0-46.4FPremier Health [facility] Center Hemoglobin [Mass/volume] in BloodOrdered By: Parish Larkin on 05-12-2022 Hemoglobin (Bld) [Mass/Vol]11.9 g/dL11.8-15.4FPremier Health Upper [facility] Center Ketones Auto test strip (U) [Mass/Vol]Ordered By: Parish Larkin on 31-37-4573Civavfs (U) [Mass/Vol]NegativeNegativeKettering Health Washington TownshipLaboratory - Chemistry and Chemistry - challengeOrdered By: Parish Larkin on 14-35-9331Vatfidvhy [Mass/Vol]2.2 mg/dL1.6-2.6FPremier Health Upper Valley Medical CenterNatriuretic peptide B (Bld) [Mass/Vol]1499.0 pg/mL5-100[facility] TownshipLaboratory - CoagulationOrdered By: Parish Larkin on 70-10-6456MH Coag (PPP) [Time]12.2 s9.0-12.9[facility] Laboratory - UrinalysisOrdered By: Parish Larkin on 08-78-6994Pavccdt casts LM Ql (Urine sed)0-8 [LPF]0-8[facility] TownshipLeukocytes [#/volume] corrected for nucleated erythrocytes in Blood by Automated coun Ordered By: Parish Larkin on 24-45-3349HKO corrected for nucl RBC Auto (Bld) [#/Vol]9.0 10*3/uL3.8-11.6FPremier Health Upper Valley Medical CenterLymphocytes Auto (Bld) [#/Vol]Ordered By: Parish Larkin on 80-08-9790Osqznvwmwjz (Bld) [#/Vol]3.1 10*3/uL1.00-4.8[facility] TownshipLymphocytes/100 WBC Auto (Bld)Ordered By: Parish Larkin on 38-72-5262Kuqmlkpftim/100 WBC (Bld) 34.6 %.[facility] Auto (RBC) [Entitic mass]Ordered By: Parish Larkin on 86-84-1781NGC (RBC) [Entitic mass]28.7 pg24.7-34.3FPremier Health Upper Valley Medical CenterMCHC Auto (RBC) [Mass/Vol]Ordered By: Parish Larkin on 40-36-4513AROC (RBC) [Mass/Vol]32.0 g/dL32.0-35.0[facility] TownshipMCV Auto (RBC) [Entitic vol]Ordered By: Parish Larkin on 91-50-1180ICW (RBC) [Entitic vol]89.7 gA57-755TvliuojibKettering Health Washington TownshipMonocyte distribution width [Entitic volume] in Blood by AutomatedOrdered By: Parish Larkin on 69-01-9527Kkywusfi distribution width Auto (Bld) [Entitic vol]19.79 % 0.00-20.00[facility] TownshipMonocytes Auto (Bld) [#/Vol]Ordered By: Parish Larkin on 07-72-0808Ylvkcfbdu (Bld) [#/Vol]0.5 10*3/uL0.0-0.8 [facility] TownshipMonocytes/100 WBC Auto (Bld)Ordered By: Parish Larkin on 74-74-9177Bpbrqkxob/100 WBC (Bld)5.3 %.[facility] TownshipNeutrophils Auto (Bld) [#/Vol]Ordered By: Parish Larkin on 72-88-3220Mwtkmvuumbf (Bld) [#/Vol]5.1 10*3/uL1.8-7.7FPremier Health Upper Valley Medical CenterNeutrophils/100 WBC Auto (Bld)Ordered By: Parish Larkin on 05-12-2022 Neutrophils/100 WBC (Bld)56.6 %.[facility] TownshipNitrite Test strip Ql (U)Ordered By: Parish Lakrin on 89-62-1477Mlhuejb Ql (U)Negative NegativeKettering Health Washington TownshipNo Panel InformationOrdered By: Parish Larkin on 02-69-5977Qrtrlqost GFR ()> 60 mL/Min [facility] TownshipComment on above:GFR estimated reference range: According to KDOQI guidelines, <60 ml/min/1.73m2 is sufficient todiagnose a patient with chronic kidney disease.Pharmacy Creatinine Clearance (Chem44.54 [facility] TownshipNucleated erythrocytes [Presence] in Blood by Automated countOrdered By: Parish Larkin on 99-17-8205Fgmptkbnv RBC Auto Ql (Bld)0.1 /100{WBC}0-0.5FPremier Health Upper Valley Medical CenterPlatelet adequacy [Presence] in Blood by Light microscopyOrdered By: Parish Larkin on 41-04-7774Ulhwrbkbr LM Ql (Bld)NormalNormalK[facility] Health [facility] Township Platelet mean volume Auto (Bld) [Entitic vol]Ordered By: Parish Larkin on 64-67-9355Asxszymx mean volume (Bld) [Entitic vol]8.7 fL6.3-10.7FPremier Health Upper Valley Medical CenterPlatelet morphology finding [Identifier] in BloodOrdered By: Parish Larkin on 89-35-8387Zltpayzl morphology finding Nom (Bld)Normal NormalKettering Health Washington TownshipPlatelet poor plasma international normalized ratio (INR) by coagulation assay (relatOrdered By: Parish Larkin on 00-29-8208TZF Coag (PPP) [Relative time]1.1 {INR}[facility] TownshipComment on above:INR Therapeutic Range A) Pre- and Peroperative OAT started two weeks before surgery. NOT HIP SURGERY: 1.5 - 2.5 HIP SURGERY: 2 - 3B) Primary and secondary prevention of venous THROMBOSIS: 2 - 3C) Active venous thrombosis, pulmonary embolismand prevention of recurrent venous thrombosis: 2 - 3D) Prevention of arterial thromboembolismincluding patients with mechanical heart valves: 3 - 4.5Platelets Auto (Bld) [#/Vol]Ordered By: Parish Larkin on 28-03-0374Kqwibykzh (Bld) [#/Vol]278 10*3/sN570-302PofiogmxlKettering Health Washington TownshipPolychromasia [Presence] in Blood by Light microscopyOrdered By: Parish Larkin on 60-93-9143Vucmehbwyomgp LM Ql (Bld)SlightKettering Health Washington TownshipProtein Auto test strip (U) [Mass/Vol]Ordered By: Parish Larkin on 83-32-6527Gjzkiyw (U) [Mass/Vol]NegativeNegativeKettering Health Washington TownshipProtein [Mass/volume] in Serum or PlasmaOrdered By: Parish Larkin on 03-70-3820Mvlksdl [Mass/Vol]6.3 g/dL6.1-7.9[facility] TownshipRBC Auto (Bld) [#/Vol]Ordered By: Parish Larkin on 90-14-6015UVP (Bld) [#/Vol]4.16 10*6/uL3.60-5.00[facility] TownshipRB morphologyOrdered By: Parish Larkin on 82-72-3973IID morphology finding Nom (Bld)N/AFWilson Street Hospitalerum or plasma alanine aminotransferase measurement without P-5'-P (enzymatic activiOrdered By: Parish Larkin on 39-40-3064YAI No additional P-5'-P [Catalytic activity/Vol] 23 U/H51-61OjtugeatxOhio State Harding Hospitalerum or plasma albumin/globulin mass ratioOrdered By: Parish Larkin on 52-19-6630Ydnpztv/Globulin [Mass ratio]1.0 {ratio}[facility] Hospitalerum or plasma alkaline phosphatase measurement (enzymatic activity/volume)Ordered By: Parish Larkin on 13-38-4237YTD [Catalytic activity/Vol]64 U/H25-86SnwvcqwrqOhio State Harding Hospitalerum or plasma anion gap determinationOrdered By: Parish Larkin on 13-61-3675Bjkzs gap [Moles/Vol]14.2 mmol/L6.0-15.0[facility] Hospitalerum or plasma aspartate aminotransferase measurement (enzymatic activity/volume)Ordered By: Parish Larkin on 03-01-4182SRI [Catalytic activity/Vol]23 U/T10-25TyedfdsfgOhio State Harding Hospitalerum or plasma calcium measurement (mass/volume)Ordered By: Parish Larkin on 95-39-2414Gxhpttv [Mass/Vol]8.7 mg/dL8.2-10.2FWilson Street Hospitalerum or plasma chloride measurement (moles/volume)Ordered By: Parish Larkin on 05-12-2022 Chloride [Moles/Vol]97 mmol/R76-366VeimycfoyOhio State Harding Hospitalerum or plasma glucose measurement (mass/volume)Ordered By: Parish Larkin on 02-71-7083Xrzvwsc [Mass/Vol]140 mg/uY57-699CttvoxejnK[facility] Health [facility] Comment on above:ADA recommended reference rangeRandom Glucose Reference Range is dependent on time and content of last meal. Glucose of more than 200 mg/dL in a nonstressed, ambulatory subject supports the diagnosisof Diabetes Mellitus. Serum or plasma potassium measurement (moles/volume)Ordered By: Parish Larkin on 21-15-1508Vuqvkzuvn [Moles/Vol]4.2 mmol/L3.5-5.1FWilson Street Hospitalerum or plasma sodium measurement (moles/volume)Ordered By: Parish Larkin on 02-31-5575Zflnup [Moles/Vol]136 mmol/R826-164FratgpkhqOhio State Harding Hospitalerum or plasma total bilirubin measurement (mass/volume) Ordered By: Parish Larkin on 94-73-8835Yddwxrwgj [Mass/Vol]0.5 mg/dL0.3-1.2 [facility] Hospitalerum or plasma total carbon dioxide measurement (moles/volume)Ordered By: Parish Larkin on 50-03-1825GT4 [Moles/Vol]29.0 mmol/L22.0-30.0[facility] Hospitalerum or plasma urea nitrogen measurement (mass/volume)Ordered By: Parish Larkin on 14-45-8470Mpwy nitrogen [Mass/Vol]13 mg/dL9-23[facility] Specific gravity Auto test strip (U) [Rel density]Ordered By: Parish Larkin on 14-33-0774Uabdizui gravity (U) [Rel density]1.0091.001-1.030[facility] Harding Hospitalquamous epithelial cells detection in urine sediment by light microscopyOrdered By: Parish Larkin on 33-33-1921Founutlgdo cells.squamous LM Ql (Urine sed)5-9 [HPF]0-2FPremier Health Upper Valley Medical Center Troponin I.cardiac [Mass/volume] in Serum or Plasma by High sensitivity method Ordered By: Parish Larkin on 62-56-4084Zfhmjffg I.cardiac High sensitivity method [Mass/Vol]133 pg/mL0-15[facility] TownshipComment on above: Results calledat 1208 on 05/12/22Urine bacteria detection by automated method Ordered By: Parish Larkin on 99-13-7210Quhmwmdq Auto Ql (U)None seenNone SeenKettering Health Washington TownshipUrine clarity by refractometry automated Ordered By: Parish Larkin on 67-38-2562Ahdjmvn Refractometry automated (U) ClearCleKettering Health SpringfieldUrine glucose measurement by automated test strip (mass/volume)Ordered By: Parish Larkin on 05-12-2022 Glucose Auto test strip (U) [Mass/Vol]Normal mg/dLNoRiverview Health InstituteUrine hemoglobin detection by automated test stripOrdered By: Parish Larkin on 83-46-6558Jmhilmritm Auto test strip Ql (U)NegativeNegative [facility] TownshipUrine leukocyte esterase detection by automated test stripOrdered By: Parish Larkin on 98-38-9949Iczvyvtku esterase Auto test strip Ql (U)1+NegativeKettering Health Washington TownshipUrobilinogen Auto test strip (U) [Mass/Vol]Ordered By: Parish Larkin on 24-45-6705Ayphjokegspo (U) [Mass/Vol]Normal mg/dLNoRiverview Health InstituteWBC Auto (Bld) [#/Vol]Ordered By: Parish Larkin on 15-28-8525RBA (Bld) [#/Vol]9.0 10*3/uL 3.8-11.6FPremier Health Upper Valley Medical CenterpH Auto test strip (U)Ordered By: Parish Larkin on 46-78-5482yE (U)8.0 [pH]5.0-9.0[facility] TownshipBasophils Auto (Bld) [#/Vol]Ordered By: Chandu Daley on 84-24-5720Gzusvtjvi (Bld) [#/Vol]0.0 10*3/uL0.0-0.2FPremier Health Upper Valley Medical CenterBasophils/100 WBC Auto (Bld)Ordered By: Chandu Daley on 28-21-7755Umanhcmkc/100 WBC (Bld)0.8 %. [facility] TownshipCreatinine and Glomerular filtration rate.predicted panel (S/P/Bld)Ordered By: Chandu Daley on 77-53-7488Ymuxkufcrq [Mass/Vol]0.80 mg/dL0.44-1.03[facility] TownshipEosinophils Auto (Bld) [#/Vol]Ordered By: Chandu Daley on 49-04-4018Mjnnszbswzq (Bld) [#/Vol]0.1 10*3/uL0.0-0.45[facility] TownshipEosinophils/100 WBC Auto (Bld) Ordered By: Chandu Daley on 82-72-4480Krvckaqpddw/100 WBC (Bld)2.4 %.[facility] TownshipErythrocyte distribution width Auto (RBC) [Ratio]Ordered By: Chandu Daley on 03-47-5264Fklxgldqtfo distribution width (RBC) [Ratio]13.7 % 11.9-15.3FPremier Health Upper Valley Medical CenterEstimated glomerular filtration rate (GFR) non- AmericanOrdered By: Chandu Daley on 55-26-9940MVI/1.73 sq M.predicted among non-blacks MDRD (S/P/Bld) [Vol rate/Area]> 60 mL/MinKettering Health Washington TownshipHematocrit Auto (Bld) [Volume fraction]Ordered By: Chandu Daley on 49-37-8285Iryhqjrfqg (Bld) [Volume fraction]35.6 %34.0-46.4FPremier Health Upper Valley Medical CenterHemoglobin [Mass/volume] in BloodOrdered By: Chandu Daley on 49-73-5381Nscvfmyyao (Bld) [Mass/Vol]11.5 g/dL11.8-15.4FPremier Health Upper Valley Medical CenterLeukocytes [#/volume] corrected for nucleated erythrocytes in Blood by Automated counOrdered By: Chandu Daley on 94-05-6393IUP corrected for nucl RBC Auto (Bld) [#/Vol]5.5 10*3/uL3.8-11.6FPremier Health Upper Valley Medical Center Lymphocytes Auto (Bld) [#/Vol]Ordered By: Chandu Daley on 48-74-2822Vkobupejzqs (Bld) [#/Vol]1.9 10*3/uL1.00-4.8[facility] TownshipLymphocytes/100 WBC Auto (Bld)Ordered By: Chandu Daley on 18-90-6047Sfhsradlktq/100 WBC (Bld)35.1 %.[facility] Auto (RBC) [Entitic mass]Ordered By: Chandu Daley on 31-24-2714HON (RBC) [Entitic mass]28.9 pg24.7-34.3FPremier Health Upper Valley Medical CenterMCHC Auto (RBC) [Mass/Vol]Ordered By: Chandu Daley on 85-44-4915LWXB (RBC) [Mass/Vol]32.4 g/dL32.0-35.0[facility] TownshipMCV Auto (RBC) [Entitic vol]Ordered By: Chandu Daley on 51-39-1380ECP (RBC) [Entitic vol] 89.2 qM61-465IqvvvkiqoKettering Health Washington TownshipMonocytes Auto (Bld) [#/Vol] Ordered By: Chandu Daley on 57-30-9600Uymxemzfq (Bld) [#/Vol]0.5 10*3/uL0.0-0.8 [facility] TownshipMonocytes/100 WBC Auto (Bld)Ordered By: Chandu Daley on 43-44-3674Iwkvnpuqt/100 WBC (Bld)8.9 %.[facility] TownshipNeutrophils Auto (Bld) [#/Vol]Ordered By: Chandu Daley on 05-09-2022 Neutrophils (Bld) [#/Vol]2.9 10*3/uL1.8-7.7FPremier Health Upper Valley [facility] Center Neutrophils/100 WBC Auto (Bld)Ordered By: Chandu Daley on 51-91-2514Zovmzkaqlfy/100 WBC (Bld)52.8 %.[facility] TownshipNo Panel InformationOrdered By: Chandu Daley on 32-71-0424Kjwtaljxd GFR ()> 60 mL/MinKettering Health Washington TownshipComment on above:GFR estimated reference range: According to KDOQI guidelines, <60 ml/min/1.73m2 is sufficient todiagnose a patient with chronic kidney disease.Pharmacy Creatinine Clearance (Chem48.76[facility] TownshipNucleated erythrocytes [Presence] in Blood by Automated countOrdered By: Chandu Daley on 01-90-3215Hrcmduhqw RBC Auto Ql (Bld)0.1 /100{WBC} 0-0.5FPremier Health Upper Valley Medical CenterPlatelet mean volume Auto (Bld) [Entitic vol]Ordered By: Chandu Daley on 88-58-2333Rwavgrva mean volume (Bld) [Entitic vol] 8.5 fL6.3-10.7FPremier Health Upper Valley Medical CenterPlatelets Auto (Bld) [#/Vol] Ordered By: Chandu Daley on 51-78-5963Vatcelgkx (Bld) [#/Vol]212 10*3/sP253-093 [facility] TownshipRBC Auto (Bld) [#/Vol]Ordered By: Chandu Daley on 48-44-5832EIQ (Bld) [#/Vol]3.99 10*6/uL3.60-5.00[facility] Hospitalerum or plasma anion gap determinationOrdered By: Chandu Daley on 05-09-2022 Anion gap [Moles/Vol]10.7 mmol/L6.0-15.0[facility] Hospitalerum or plasma calcium measurement (mass/volume)Ordered By: Chandu Daley on 05-09-2022 Calcium [Mass/Vol]8.4 mg/dL8.2-10.2FWilson Street Hospitalerum or plasma chloride measurement (moles/volume)Ordered By: Chandu Daley on 05-09-2022 Chloride [Moles/Vol]98 mmol/S27-770HlgopnnerOhio State Harding Hospitalerum or plasma glucose measurement (mass/volume)Ordered By: Chandu Daley on 05-09-2022 Glucose [Mass/Vol]121 mg/iA32-648QffbfyfjlKettering Health Washington TownshipComment on above:ADA recommended reference rangeRandom Glucose Reference Range is dependent on time and content of last meal. Glucose of more than 200 mg/dL in a nonstressed, ambulatory subject supports the diagnosisof Diabetes Mellitus.Serum or plasma potassium measurement (moles/volume)Ordered By: Chandu Daley on 71-00-9831Nlozjpvoi [Moles/Vol]4.0 mmol/L3.5-5.1FWilson Street Hospitalerum or plasma sodium measurement (moles/volume)Ordered By: Chandu Daley on 84-27-4778Pfxmya [Moles/Vol]135 mmol/Z442-292HiecdinwnKettering Health Washington Township Serum or plasma total carbon dioxide measurement (moles/volume)Ordered By: Chandu Daley on 49-24-1065AG2 [Moles/Vol]30.3 mmol/L22.0-30.0[facility] Hospitalerum or plasma urea nitrogen measurement (mass/volume)Ordered By: Chandu Daley on 05-53-0027Cslw nitrogen [Mass/Vol]11 mg/dL9-23[facility] TownshipWBC Auto (Bld) [#/Vol]Ordered By: Chandu Daley on 02-84-8410IVI (Bld) [#/Vol]5.5 10*3/uL3.8-11.6FPremier Health Upper Valley Medical CenterTroponin I.cardiac [Mass/volume] in Serum or Plasma by High sensitivity methodOrdered By: José Nelson on 67-39-2365Ukcnwbwy I.cardiac High sensitivity method [Mass/Vol]106 pg/mL0-15[facility] TownshipComment on above:Results calledat 0604 on 05/07/22Activated partial thromboplastin time (aPTT) in platelet poor plasma by coagulation aOrdered By: Je Ruiz on 05-06-2022 aPTT Coag (PPP) [Time]26.9 s25.1-36.5FPremier Health Upper Valley Medical CenterLaboratory - CoagulationOrdered By: Je Ruiz on 39-17-8805TV Coag (PPP) [Time]12.1 s9.0-12.9[facility] TownshipPlatelet poor plasma international normalized ratio (INR) by coagulation assay (relatOrdered By: Je Ruiz on 09-65-6128SWB Emma (PPP) [Relative time]1.1 {INR}[facility] TownshipComment on above:INR Therapeutic Range A) Pre- and Peroperative OAT started two weeks before surgery. NOT HIP SURGERY: 1.5 - 2.5 HIP SURGERY: 2 - 3B) Primary and secondary prevention of venous THROMBOSIS: 2 - 3C) Active venous thrombosis, pulmonary embolismand prevention of recurrent venous thrombosis: 2 - 3D) Prevention of arterial thromboembolismincluding patients with mechanical heart valves: 3 - 4.5TSH DL <= 0.005 mIU/L QnOrdered By: Danika Islas on 17-24-5042UIQ Qn2.13 m[IU]/L0.45-5.33[facility] TownshipBNPon 19-16-0950Lntzlotdgfc peptide B (Bld) [Mass/Vol]5347.0 pg/mLCritically high <=1,800.0The [facility] HospitalComment on above:Performed By: #### BNP, BMP, HSTROPN #### [facility] [address] [address] [address] Nahomi Slaughter AUTO DIFFon 72-19-0134MTDT #0.0 103/ulNormal0.0-0.1The [facility] HospitalComment on above:Performed By: #### CBC #### [facility] [address] [address] [address] Nahomi Centenosophils/100 WBC (Bld)0.2 %Normal0.2-2.0The [facility] Comment on above:Performed By: #### CBC #### [facility] [address] [address] [address] Nahomi Morales #0.0 103/ulNormal0.0-0.7The [facility] HospitalComment on above: Performed By: #### CBC #### [facility] [address] [address] [address] Nahomi Museosinophils/100 WBC (Bld)0.1 %Critically low0.9-7.0The [facility] HospitalComment on above:Performed By: #### CBC #### [facility] [address] [place] [address] Dr. Nahomi Wymanthrocyte distribution width (RBC) [Ratio]13.7 %Rbpkgb22.0-15.0 The [facility] HospitalComment on above:Performed By: #### CBC #### [facility] [address] [place] [address] Dr. Nahomi LehmanHematocrit (Bld) [Volume fraction]37.9 %Mhcayf97.0-48.0The [facility] HospitalComment on above:Performed By: #### CBC #### [facility] [address] [place] [address] Dr. Nahomi LehmanHemoglobin (Bld) [Mass/Vol]12.2 g/sMHeziwa55.0-16.0The [facility] HospitalComment on above:Performed By: #### CBC #### [facility] [address] [place] [address] Dr. Nahomi Pitt #0.04 10e3/ulCritically high0.00-0.03[facility] Comment on above:Performed By: #### CBC #### [facility] [address] [place] [address] Dr. Nahomi Pitt %0.5 %Normal0.0-0.5The [facility] HospitalComment on above: Performed By: #### CBC #### [facility] [address] [place] [address] Dr. Nahomi Menendez #1.1 103/ulCritically low1.2-3.8The [facility] Comment on above:Performed By: #### CBC #### [facility] [address] [place] [address] Dr. Nahomi Mcmahonmphocytes/100 WBC (Bld)12.5 %Critically low20.5-60.0The [facility] HospitalComment on above:Performed By: #### CBC #### [facility] [address] [place] [address] Dr. Nahomi Arenas DIFF REQNONormalThe [facility] HospitalComment on above: Performed By: #### CBC #### [facility] [address] [place] [address] Dr. Nahomi Martínez (RBC) [Entitic mass]29.7 jxIsccma19.7-34.0The [facility] HospitalComment on above:Performed By: #### CBC #### [facility] [address] [place] [address] Dr. Nahomi Martínez (RBC) [Mass/Vol]32.2 g/nSBvggml36.9-35.2The [facility] HospitalComment on above:Performed By: #### CBC #### [facility] [address] [place] [address] Dr. Nahomi Jensen (RBC) [Entitic vol]92.2 gVHiuyhj28.0-99.0The [facility] HospitalComment on above:Performed By: #### CBC #### [facility] [address] [place] [address] Dr. Nahomi Jessica #0.4 103/ulNormal0.3-0.8The [facility] HospitalComment on above:Performed By: #### CBC #### [facility] [address] [place] [address] Dr. Nahomi Arvizuocytes/100 WBC (Bld)4.5 %Normal1.7-12.0[facility] Comment on above:Performed By: #### CBC #### [facility] [address] [place] [address] Dr. Nahomi Garvey #7.3 103/ulCritically high1.4-6.5The [facility] Comment on above:Performed By: #### CBC #### [facility] [address] [place] [address] Dr. Nahomi Bryanutrophils/100 WBC (Bld)82.2 %Critically high43.0-75.0The [facility] HospitalComment on above:Performed By: #### CBC #### [facility] [address] [address] [address] Nahomi LehmanPlatelet mean volume (Bld) [Entitic vol]10.8 fLNormal9.5-13.5The [facility] HospitalComment on above:Performed By: #### CBC #### [facility] [address] [place] [address] Dr. Nahomi LehmanPLT187 103/erWrjqdl528-517Amh [facility] HospitalComment on above: Performed By: #### CBC #### [facility] [address] [place] [address] Dr. Nahomi LehmanRBC4.11 106/ulCritically low4.20-5.40The [facility] HospitalComment on above:Performed By: #### CBC #### [facility] [address] [place] [address] Dr. Nahomi LehmanWBC8.9 103/ulNormal4.0-11.0The [facility] HospitalComment on above: Performed By: #### CBC #### [facility] [address] [place] [address] Dr. Nahomi LehmanCovid-19 PCR ([facility])on 94-47-6645UBBS-CoV-2 (COVID-19) RNA JACKSON+probe Ql (Unsp spec)Not detectedNormalNOT DETECTEDThe [facility] Comment on above:Result Comment: When diagnostic testing is negative, the [...] for this test is supported by the [place] of Health and Human Service's declaration that circumstances exist to justify the emergency use of in vitro diagnostics for the detection and/or diagnosis of the virus that causes COVID-19. This EUA will remain in effect for the duration of the COVID-19 declaration justifying emergency of IVDs, unless it is terminated or revoked by the FDA (after which the test may no longer be used).Performed By: #### CVDTBH #### [facility] [address] [address] [address] Nahomi LehmanGlucose mean value [Mass/volume] in Blood Estimated from glycated hemoglobinOrdered By: José Nelson on 05-24-1189Dmbhbqv glucose Estimated from glycated hemoglobin (Bld) [Mass/Vol]143 mg/dLKettering Health Washington TownshipHemoglobin A1c percentageOrdered By: José Nelson on 53-05-0072CfS4n (Bld) [Mass fraction]6.6 %4.3-5.6FPremier Health Upper Valley Medical CenterComment on above:Increased risk for diabetes: 5.7 - 6.4diabetes: >6.4glycemic control for adults with diabetes: <7.0Laboratory - Chemistry and Chemistry - challengeOrdered By: José Nelson on 98-75-2283Fgvchbydi [Mass/Vol]2.5 mg/dL1.6-2.6FPremier Health Upper Valley Medical CenterNatriuretic peptide B (Bld) [Mass/Vol]1340.0 pg/mL5-100[facility] TownshipPROF CHEM 8 (BAS METB)on 06-67-1702Ivuvr gap [Moles/Vol]15.1 mmol/LNormalThe [facility] HospitalComment on above:Performed By: #### BNP, BMP, HSTROPN #### [facility] [address] [address] [address] Nahomi LehmanCalcium [Mass/Vol]8.5 mg/dLNormal8.5-10.1The [facility] Comment on above:Performed By: #### BNP, BMP, HSTROPN #### [facility] [address] [address] [address] Nahomi LehmanChloride [Moles/Vol]98 mmol/GEsshhx89-146Ivf [facility] Comment on above:Performed By: #### BNP, BMP, HSTROPN #### [facility] [address] [address] [address] Nahomi LehmanCO2 [Moles/Vol]25.6 mmol/APuilap95.0-32.0The [facility] Comment on above:Performed By: #### BNP, BMP, HSTROPN #### [facility] [address] [place] [address] Dr. Nahomi LehmanCreatinine [Mass/Vol]1.43 mg/dLCritically high0.55-1.02The [facility] HospitalComment on above:Performed By: #### BNP, BMP, HSTROPN #### [facility] [address] [address] [address] Comer ChangEGFR-AF HRQLCUSN70 mL/min/1.06a7Ngbzroparw low>=60The [facility] HospitalComment on above:Performed By: #### BNP, BMP, HSTROPN #### [facility] [address] [place] [address] Dr. Nahomi MuseGFR-NON AF JRTTLGTJ11 mL/min/1.85r6Btovwgrszu low>=60The [facility] HospitalComment on above:Performed By: #### BNP, BMP, HSTROPN #### [facility] [address] [place] [address] Dr. Nahomi LehmanGlucose [Mass/Vol]243 mg/dLCritically jtwx33-287Gvl [facility] HospitalComment on above:Performed By: #### BNP, BMP, HSTROPN #### [facility] [address] [place] [address] Dr. Nahomi LehmanPotassium [Moles/Vol]3.7 mmol/LNormal3.5-5.1The [facility] Comment on above:Performed By: #### BNP, BMP, HSTROPN #### [facility] [address] [place] [address] Dr. Nahomi LehmanSodium [Moles/Vol]135 mmol/LCritically hua885-876Wuu [facility] HospitalComment on above:Performed By: #### BNP, BMP, HSTROPN #### [facility] [address] [place] [address] Dr. Nahomi LehmanUrea nitrogen [Mass/Vol]21.0 mg/dLCritically high7.0-18.0The [facility] HospitalComment on above:Performed By: #### BNP, BMP, HSTROPN #### [facility] [address] [place] [address] Dr. Nahomi Ramirez nitrogen/Creatinine [Mass ratio]14.7 mg/mgNoClinton Memorial HospitalComment on above:Performed By: #### BNP, BMP, HSTROPN #### [facility] [address] [place] [address] Dr. Nahomi LehmanPROTIMEon 47-56-6704FUN Coag (PPP) [Relative time]1.02 {INR} NormalThe [facility] HospitalComment on above:Performed By: #### PTT, PT #### [facility] [address] [place] [address] Dr. Nahomi Dasilva GUIDELINESSEE BELOWParkview Health Bryan HospitalComment on above:Result Comment: DESIRED INR: 2.0 - 3.0 CONDITIONS NOT LISTED BELOW 2.5 - 3.5 FOR PROSTHETIC HEART VALVE REPLACEMENT 2.5 - 3.5 RECURRENT THROMBOSIS Performed By: #### PTT, PT #### [facility] [address] [place] [address] Dr. Nahomi LehmanPT Coag (PPP) [Time]11.0 sNormal9.0-11.6The [facility] Comment on above:Performed By: #### PTT, PT #### [facility] [address] [place] [address] Dr. Nahomi Billings 82-19-1051yTRD Coag (Bld) [Time]26.9 fOzexfd90.3-36.2[facility] HospitalComment on above:Performed By: #### PTT, PT #### [facility] [address] [place] [address] Dr. Nahomi Bill, HIGH SENSITIVITYon 98-43-2969WHQOKK837.8 pg/mL Critically high4.0-51.3The [facility] HospitalComment on above:Result Comment: CUT-OFF POINTS HAVE BEEN ESTABLISHED BASED ON THE FOURTH UNIVERSAL DEFINITIONS OF MYOCARDIAL INFARCTION. THE UPPER REFERENCE LIMIT (URL) OF TROPONIN, DEFINED THE 99TH PERCENTILE OF cTnI DISTRIBUTION IN A REFERENCE POPULATION, HAS BEEN CONFIRMED THE DECISION THRESHOLD FOR PA DIAGNOSIS.Performed By: #### BNP, BMP, HSTROPN #### [facility] [address] [place] [address] Nahomi LehmanXR CHEST 1 Von 03-49-1613WN CHEST 1 VEXAM: XR CHEST 1 V HISTORY: SHORTNESS OF [...] Electronically authenticated by: MANJULA ESTRADA Date: 2022-05-05 13:49[facility]OVon [id number] Visit (ORMIDD) ROSEANN DALE ([id number]) 1940 F Date Time Provider Department 01/11/22 [...] 02/10/2021 Encounter Status:Closed by ALO LOMELI on 01/11/22NoMer[facility] Health [facility]erm[facility] HospitalXR HIP 3V PELV+ AP/LAT RTon 51-46-8564CF HIP 3V PELV+ AP/LAT RT* * *Final Report* * * DATE OF [...] Right total hip arthroplasty without apparent complication. Cancer Researcher: ANNA Transcribe Date/Time: Jan 11 2022 12:20P Dictated by : GABINO JAMES MD This examination was interpreted and the report reviewed and electronically signed by: GABINO JAMES MD on Jan 11 2022 12:22PM EST [id number] Memorial HospitalXR Pelvis and Hip - right AP and Lateral frogon 53-64-5577BBDJDQTQEL: Right total hip arthroplasty without apparent complication. Cancer Researcher: ANNA Transcribe Date/Time: Jan 11 2022 12:20P Dictated by : GABINO JAMES MD This examination was interpreted and the report reviewed and electronically signed by: GABINO JAMES MD on Jan 11 2022 12:22PM EST ZZZ_DO_NOT_USE_DIVISION OF RADIOLOGY* * *Final Report* * * DATE OF [...] Clips project over the right lower quadrant. ZZZ_DO_NOT_USE_DIVISION OF RADIOLOGYProvider, [facility] * * *Final Report* * [...] Right total hip arthroplasty without apparent complication. Cancer Researcher: PSCB Transcribe Date/Time: Jan 11 2022 12:20P Dictated by : GABINO JAMES MD This examination was interpreted and the report reviewed and electronically signed by: GABINO JAMES MD on Jan 11 2022 12:22PM EST [facility]Radiology Study observation (narrative)[facility]XR Pelvis and Hip - right AP and Lateral frogOrdered By: Ccf Provider on 01-11-2022 [facility] HospitalCNOVon [id number] Visit (ORMIDD) ROSEANN DALE ([id number]) 1940 F Date Time Provider Department 07/27/21 [...] 02/10/2021 Encounter Status:Closed by ALO LOMELI on 07/27/21[facility]XR H[facility] 3V PELV+ AP/LAT RTon 96-79-7028KP HIP 3V PELV+ AP/LAT RT* * *Final Report* * * DATE OF [...] abnormality. IMPRESSION: Intact right total hip arthroplasty. Cancer Researcher: [employer] Transcribe Date/Time: Jul 27 2021 12:58P Dictated by : BREE CLAROS MD This examination was interpreted and the report reviewed and electronically signed by: BREE CLAROS MD on Jul 27 2021 12:59PM EST [id number] Municipal Hospital Pelvis and Hip - right AP and Lateral frogon [id number]: Intact right total hip arthroplasty. Cancer Researcher: [employer] Transcribe Date/Time: Jul 27 2021 12:58P Dictated by : BREE CLAROS MD This examination was interpreted and the report reviewed and electronically signed by: BREE CLAROS MD on Jul 27 2021 12:59PM EST DIVISION OF RADIOLOGY* * *Final Report* * * DATE OF [...] preserved. No other significant abnormality. DIVISION OF RADIOLOGYProvider, [facility] 07/27/2021 * * *Final Report* * [...] IMPRESSION IMPRESSION: Intact right total hip arthroplasty. Cancer Researcher: [facility]IL[facility]'S HOSPITALAmmy Transcribe Date/Time: Jul 27 2021 12:58P Dictated by : BREE CLAROS MD This examination was interpreted and the report reviewed and electronically signed by: BREE CLAROS MD on Jul 27 2021 12:59PM [facility] HospitalRadiology Study observation (narrative)[facility] HospitalXR Pelvis and Hip - right AP and Lateral frogOrdered By: [facility] Provider on 07-27-2021 [facility] HospitalCNOVon [id number] Visit (ORMIDD) ROSEANN DALE ([id number]) 1940 F Date Time Provider Department 04/27/21 [...] Alo Lomeli MD Referring Provider: ALO LOMELI [[id number]] Allergies As of Date: 04/27/2021 (No Known [...] 02/10/2021 Encounter Status:Closed by ALO LOMELI on 04/27/21[facility]XR H[facility] 3V PELV+ AP/LAT RTon 75-78-5207TM HIP 3V PELV+ AP/LAT RT* * *Final Report* * * DATE OF [...] total hip arthroplasty without interval radiographic change. Cancer Researcher: ANNA Transcribe Date/Time: Apr 27 2021 9:29A Dictated by : GABINO JAMES MD This examination was interpreted and the report reviewed and electronically signed by: GABINO JAMES MD on Apr 27 2021 9:33AM EST [id number] Memorial HospitalXR Pelvis and Hip - right AP and Lateral frogon 55-37-4310MALHIHCKGJ: Right total hip arthroplasty without interval radiographic change. Cancer Researcher: ANNA Alvarengaribe Date/Time: Apr 27 2021 9:29A Dictated by : GABINO JAMES MD This examination was interpreted and the report reviewed and electronically signed by: GABINO JAMES MD on Apr 27 2021 9:33AM EST DIVISION OF RADIOLOGY* * *Final Report* * * DATE OF [...] findings in the lumbar spine. DIVISION OF RADIOLOGYProvider, [facility] 04/27/2021 * * *Final Report* * [...] total hip arthroplasty without interval radiographic change. Cancer Researcher: PSCB Transcribe Date/Time: Apr 27 2021 9:29A Dictated by : GABINO JAMES MD This examination was interpreted and the report reviewed and electronically signed by: GABINO JAMES MD on Apr 27 2021 9:33AM EST [facility] HospitalRadiology Study observation (narrative)[facility] HospitalXR Pelvis and Hip - right AP and Lateral frogOrdered By: Ccf Provider on 04-27-2021 [facility] HospitalCNOVon [id number] Visit (ORMIDD) SUYAPAROSEANN R ([id number]) 1940 F Date Time Provider Department 03/30/21 10:10 AM ALO LOMELI ORMIDLorie During your visit today, we recorded the [...] Alo Lomeli MD Referring Provider: ALO LOMELI [[id number]] Allergies As of Date: 03/30/2021 (No Known [...] 02/10/2021 Encounter Status:Closed by ALO LOMELI on 03/30/21[facility]XR H[facility] 3V PELV+ AP/LAT RTon [id number] HIP 3V PELV+ AP/LAT RT* * *Final Report* * * DATE OF [...] hip arthroplasty in place with intact hardware. Cancer Researcher: ANNA Transcribe Date/Time: Mar 30 2021 11:48A Dictated by : JOSIAH RINALDI MD This examination was interpreted and the report reviewed and electronically signed by: JOSIAH RINALDI MD on Mar 30 2021 11:50AM EST [id number] Memorial HospitalCNOVon [id number] Office Visit (ORMIDD) ROSEANN DALE ([id number]) 1940 F Date Time Provider Department 03/09/21 [...] 02/10/2021 Encounter Status:Closed by ALO LOMELI on 03/09/21[facility]XR HIP 3V PELV+ AP/LAT RTon 80-70-1516LD HIP 3V PELV+ AP/LAT RT* * *Final Report* * * DATE OF [...] Right total hip arthroplasty without apparent complication. Cancer Researcher: ANNA Transcribe Date/Time: Mar 09 2021 1:15P Dictated by : GABINO JAMES MD This examination was interpreted and the report reviewed and electronically signed by: GABINO JAMES MD on Mar 09 2021 1:18PM EST [id number] Community Hospital Summary.on [id number] Summary. CD:[id number] [id number] [file] YXBz (more content not included)...[facility] Interdisciplinary Note - Case Manageron 31-65-8640Ztrchlkvbajjfduqb Note - Case ManagerED: tami H/P: mack Profit: partial PIS (OBS/IN): obs 01/31 2157;TF 02/01 2140 Chgs: D/C: VTE: na MCG: -IP musculoskeletal Tele: private ICU: na >2mn: <2mn Insurance: medicare/8digitsa supplement PAT (tests): no Readmit: no MM: OBS: SS: observation 01/31 to inpatient 02/01 charges completed obs 2hr Inpt 02/01 Profit completed- NPCR with medicareNormalFisher Titus Medical CenterComment on above:Result Comment: Electronically Signed By: Susan Carrizales RN\Date and Time Signed: 02/12/21 09:37 EDTALLIED HEALTHon [id number] HEALTHO ID: [id number] Author: RT Maggie(R) Service: Radiology Author Type: [...] BY: RT Mellisa(R) February 11, 2021 10:34 [facility] ID: [id number] Author: RT Ching(R) Service: Radiology Author Type: Technologist Type: Allied [...] BY: RT Ching(R) February 11, 2021 8:35 AMNormalNondenominational HospitalBasic Metabolic Panlon 49-09-7367Wcewz gap [Moles/Vol]8 mmol/LLow9-18Lutheran HospitalComment on above: Performed By: #### CBC, BMP ####Nondenominational Jwqtqdvn[address] [phone] [Mass/Vol]8.2 mg/dLLow8.5-10.2L[facility] Comment on above:Performed By: #### CBC, BMP ####[address] [phone] [Moles/Vol]101 mmol/OWhgndn11-816 [facility]ominational HospitalComment on above:Performed By: #### CBC, BMP ####[address] [phone] [Moles/Vol]30 mmol/GFiurii06-91Bzktsfjw HospitalComment on above:Performed By: #### CBC, BMP ####[place] [phone] Creatinine [Mass/Vol]0.78 mg/dLNormal0.58-0.96[facility] HospitalComment on above: Performed By: #### CBC, BMP ####[address] [phone]-Bszhzbc Amer.>60Normal>60Lutheran HospitalComment on above:Performed By: #### CBC, BMP ####[place] [phone]-All Other Races>60Normal>60Lutheran HospitalComment on above:Result Comment: eGFR (Estimated GFR) Units of measure: [...] the eGFR may not accurately reflect actual GFR.Performed By: #### CBC, BMP ####[place] [phone] [Mass/Vol]119 mg/lKCyks70-12Blwlsuir HospitalComment on above:Performed By: #### CBC, BMP ####Nondenominational[address] [phone] [Moles/Vol]4.4 mmol/LNormal3.7-5.1L[facility] Comment on above:Performed By: #### CBC, BMP ####[address] [phone] [Moles/Vol]139 mmol/TUepgnu216-580 [facility] HospitalComment on above:Performed By: #### CBC, BMP ####[place] [address] [phone] nitrogen [Mass/Vol]15 mg/dLNormal7-21[facility] HospitalComment on above:Performed By: #### CBC, BMP ####[address] [phone] MANAGEMon 09-74-0773KCKE MANAGEMHNO ID: [id number] Author: Irasema Garza RN Service: ? Author Type: Registered Nurse Type: Care Mgt Progress Note Filed: 02/11/2021 4:12 PM Note Text: CARE MANAGEMENT DISCHARGE NOTE SERVICE DATE: 02/11/2021 SERVICE TIME: 1610 LOS: 0 days Admission Date: 02/10/2021 DISCHARGE ARRANGEMENT (list agency and phone number) Discharge Arrangement: intermediate facility Was an expedited discharge program used?: Yes Type: Medicare ACO 3 Day Waiver Provider Name AND Phone: See Below HANDOFF COMMUNICATION: Handoff to: Primary Care Physician TRANSPORTATION ARRANGEMENTS: Transportation Arrangements: Ambulance/[place] Transportation Agency and Phone #:: [facility] [phone] Date of Trip: 02/11/21 Time of Trip: 1900 Type of Service: Wheelchair;BLS Non-emergency Is Patient Medicaid Pending?: No Discussion of financial coverage occurred with: Patient;Family College Service Officer Location: Nondenominational Destination: [facility] Financial Care Management Responsibility: None ADDITIONAL CONTACT RESOURCES: summary of care Discharge Information Row Name Admission (Current) from 02/10/[address] Group [address] Facility Agency [facility] Patient to discharge back to SNF with MMT providing transportation pending covid results . Daughter pre-paid for transport service. Summary of care sent to care team, PCP. SIGNATURE: Irasema Garza RN PATIENT NAME: Roseann Dale DATE: February 11, 2021 TIME: 4:10 PM PAGER/CONTACT #: [phone] Medical [facility], Inc 43-31-1117Utpkipru nRBC<0.01Normal<0.01Lutheran HospitalComment on above: Performed By: #### CBC, BMP ####[place] [phone] distribution width (RBC) [Ratio]13.1 %Normal 11.5-15.0[facility] HospitalComment on above:Performed By: #### CBC, BMP ####[place] [phone] Hematocrit (Bld) [Volume fraction]34.5 %Low36.0-46.0[facility] HospitalComment on above:Performed By: #### CBC, BMP ####[place] [phone] (Bld) [Mass/Vol]10.3 g/dLLow 11.5-15.5[facility] HospitalComment on above:Performed By: #### CBC, BMP ####[place] 3115813216-363-2018MCH29.3 kVKkzouu86.0-34.0[facility] HospitalComment on above:Performed By: #### CBC, BMP ####[place] [phone] (RBC) [Mass/Vol]29.9 g/dLLow30.5-36.0[facility] HospitalComment on above:Performed By: #### CBC, BMP ####[place] [phone] (RBC) [Entitic vol]98.0 lUZfddgw16.0-100.0[facility] Hospital Comment on above:Performed By: #### CBC, BMP ####[address] [phone] mean volume (Bld) [Entitic vol]9.8 fLNormal9.0-12.7[facility]utfl[facility] healthcarean HospitalComment on above:Performed By: #### CBC, BMP ####[address] Platelets (Bld) [#/Vol]241 10*3/xDDgjrrj934-454Kkaybqro HospitalComment on above:Performed By: #### CBC, BMP ####[address] [phone] (Bld) [#/Vol]3.52 10*6/uLLow3.90-5.20 N[facility]enominational HospitalComment on above:Performed By: #### CBC, BMP ####[place] [phone] (Bld) [#/Vol] 6.65 10*3/uLNormal3.70-11.00[facility] HospitalComment on above:Performed By: #### CBC, BMP ####[address] [phone] 60-87-2517UQKOGGBSYX ID: [id number] Author: Fernando Vazquez MD Service: General Internal Medicine Author Type: Physician Type: Consults Filed: 02/11/2021 9:27 AM Note Text: CONSULT: MEDICAL SERVICE SERVICE DATE: 02/11/2021 SERVICE TIME: 9:20 AM REASON FOR CONSULT: post op medical care REQUESTING PHYSICIAN: Armani PRIMARY CARE PHYSICIAN: DO Paolo Banuelos Ms. [...] Disp: 30 tablet, Rfl: 0, 02/09/[address] (PROTONIX) 40 mg tablet, Take [...] ORAL q 6 (more content not included)... NormalNondenominational HospitalExpedited WOTGV16sa 47-62-0563MLDU-CoV-2 (COVID-19) RNA JACKSON+probe Ql (Unsp spec)UPPER RESPIRATORY TRACT SWABFairfield Medical Center Comment on above:Performed By: #### EXCOVD ####[address] [phone]-DiG-6 (COVID-19) RNA JACKSON+probe Ql (Unsp spec)Negative for COVID19 (SARS CoV2) by RT-PCR or equivalent method. NormalNegative for COVID19 (SARS CoV2) by RT-PCR or equivalent method.[facility] HospitalComment on above:Result Comment: This test has been authorized by FDA under an Emergency Use Authorization (EUA).Performed By: #### EXCOVD ####[address] [phone] PROGon 31-64-3969LOMNTZW PRONO ID: [id number] Author: Juan Cardoso RN Service: Nursing Author Type: Registered Nurse Type: Nursing Progress Note Filed: 02/11/2021 6:59 PM Note Text: Nursing Progress Note Patient Name: Roseann Dale [facility] Daily Note: Gave report to RUBI Barrera at [facility]. All discharge instructions communicated and verbalized understanding. This note was completed by: [facility] HospitalTHERAPY NTon 15-08-6150HXYEEJE NTHNO ID: [id number] Author: Pretty Burgess OTR/L Service: Occupational Therapy Author Type: Occupational Therapist Type: Therapy (PT/OT/Speech/Resp) Filed: 02/11/2021 2:57 PM Note Text: Occupational Therapy Evaluation SERVICE DATE: 02/11/2021 SERVICE TIME: 1420 to 1443 ROOM: [place] [address] Recommended Discharge Disposition: Subacute/SNF Recommended Discharge Disposition [...] Main level Equipment Owned: Wheeled Walker;Cane;Grab Bars-Shower;Grab Bars-Toilet;Preparation Supervisor Prior Functional Level: Required Assistance Prior [...] second dislocation, pt was being transferred to [facility], was trying to get out of the car with knee immobilizer on, felt a pop and could not put weight on RLE. (Family was helping with ADLs/IADLs) Patient Report: I'm going back to [facility] for therapy. CURRENT FUNCTIONAL STATUS: Most recent [...] Learning/Educational Needs: Discharge Plan;Functional Activities/Mobility;Pain Management;Plan of Care;Precautions;Safety;Self Care Goals for Plan of Care: Patient [...] of daily living (ADL) Interventions Provided: Evaluation;Self Fci Management (51126) $ Evaluation-Low (44514) Billed Units: 1 unit Self Fci Management (97044) Treatment Minutes: 8 $ Self Fci Management (89636) Billed Units: 1 unit Training AND education [...] see discipline specific clinic (more content not included)...[facility] HospitalTHERAP[facility] ID: [id number] Author: Krysta Lopez, PT, DPT Service: Physical Therapy Author Type: Physical Therapist Type: Therapy (PT/OT/Speech/Resp) Filed: 02/11/2021 2:33 PM Note Text: Physical Therapy Evaluation SERVICE DATE: 02/11/2021 SERVICE TIME: 1348 to 1419 ROOM: [place] [address] Recommended Discharge Disposition: Subacute/SNF Recommended Discharge Disposition [...] Interventions: Education;Self Care / Home Management;Energy Conservation Training;Strengthening;Functional Mobility Training Plan for next visit: Bed [...] Main level Equipment Owned: Wheeled Walker;Cane;Grab Bars-Shower;Grab Bars-Toilet;Preparation Supervisor Prior Functional Level: Within Functional Limits [...] second dislocation, pt was being transferred to [facility], was trying to get out of the car with knee immobilizer on, felt a pop and could not put weight on RLE. Patient Report: My stomach is upset. CURRENT FUNCTIONAL STATUS: Most recent performance Current Functional Mobility Assist Level Additional Information Rolling Supine to Sit Supervision;Additional Information from elevated HOB, with bedrail Sit to Supine Scooting Sit [...] more Learning/Educational Needs: Discharge Plan;Equipment;Functional Activities/Mobility;Plan of Care;Precautions;Rehabilitation Techniques and Procedures;Safety Goals for Plan of [...] Diagnosis: Reduced mobility-other Interventions Provided: Evaluation;Gait Training (16129) $ Evaluation-Low (62609) Billed Units: 1 unit Gait Training (29504) Treatment Minutes: 16 $ Gait Training (27630) Billed Units: 1 unit Training AND education (more content not included)...[facility] CenterXR CHEST 2V FRONTAL/LATon 22-25-2586VZ CHEST 2V FRONTAL/LAT* * *Final Report* * * DATE OF [...] represent hypoventilation versus pneumonia. No pleural effusion. Cancer Researcher: ANNA Transcribe Date/Time: Feb 11 2021 1:10P Dictated by : GARY MODI MD This examination was interpreted and the report reviewed and electronically signed by: GARY MODI MD on Feb 11 2021 1:14PM EST [id number] HospitalXR HIP 3V PELV+ AP/LAT RTon 04-46-6152AB HIP 3V PELV+ AP/LAT RT* * *Final Report* * * DATE OF [...] Impression: 1. No acute fracture or dislocation. Cancer Researcher: ANNA Transcribe Date/Time: Feb 11 2021 8:47A Dictated by : KELSY MONTELONGO MD This examination was interpreted and the report reviewed and electronically signed by: KELSY MONTELONGO MD on Feb 11 2021 8:48AM EST [id number] children's hospital HospitalANES POSTPROC EVALon 34-55-6043CQZR POSTPROC EVALHNO ID: [id number] Author: Kristian Baez MD Service: Anesthesiology Author Type: Anesthesiologist Type: Anesthesia Postprocedure Evaluation Filed: 02/10/2021 5:48 PM Note Text: POST ANESTHESIA EVALUATION NOTE : 1940 Procedure Summary Date: 02/10/21 Room / Location: [place] [address] / OR Anesthesia Start: 1416 Anesthesia Stop: 1615 Procedure: REVISION JOINT TOTAL [...] February 10, 2021 TIME: 5:48 PM CSN: [id number] HospitalANES PRE-OPon 01-86-4069UJZK PRE-OPHNO ID: [id number] Author: Kristian Baez MD Service: Anesthesiology Author [...] nasal spray (NARCAN) (more content not included)... [facility] NOTon [id number] OP NOTO ID: [id number] Author: Lexa Bocanegra MD Service: Orthopaedic Surgery Author Type: Resident Type: Brief Op Note Filed: 02/10/2021 4:15 PM Note Text: BRIEF OPERATIVE / PROCEDURE NOTE LOG ID: [id number] Surgery/Procedure Date: 02/10/2021 Incision/Procedure Start Time: 2:59 PM Incision Close/Procedure End Time: 4:00 PM Surgeon(s)/Proceduralist(s) and Warehouse Distribution Specialist(s): Surgeon(s) and Role: * Alo Lomeli MD - Primary * Parish Sullivan MD - Resident - Assisting * Lexa Bocanegra MD - Resident - Assisting Nurse Practitioner: Ambar Garza APRN.OIL AND GAS EXPLORATION TECHNICIAN Physician Warehouse Distribution Specialist: Remberto Hernandez PA-C Procedure(s): Procedure(s) (LRB): REVISION JOINT TOTAL HIP ACETABULAR COMPONENT ONLY (Right) Revision R LELAND to MDM head and liner Anesthesia: Spinal Peripheral Block Type: Local Approach: Posterior Findings: Well-fixed shell and stem. Large scuff kirkland on ceramic head. Estimated Blood Loss: 200 mls Specimens: Femoral ceramic head Complications: None Implant: Implant Name Type Inv. Item Serial No. Community Health Counselor Lot No. LRB No. Used Action INSERT MOBILE BEARING HIP CHRISTIANITY 38D X3 22.2MM ACETABULAR ANATOMIC - [id number] Joint INSERT MOBILE BEARING HIP CHRISTIANITY 38D X3 22.2MM ACETABULAR ANATOMIC [facility] [id number] Right 1 Implanted HEAD V40 LFIT 22MM +0MM OFFSET TAPER COCR FEMORAL PRIMARY HIP - [id number] Joint - Hip HEAD V40 LFIT 22MM +0MM OFFSET TAPER COCR FEMORAL PRIMARY HIP [employer] [id number] Right 1 Implanted LINER 38MM D ACETABULAR MODULAR 2 MOBILITY HIP - [id number] Joint LINER 38MM D ACETABULAR MODULAR 2 MOBILITY HIP [facility] [id number] Right 1 Implanted Pre-Op/Pre-Procedure Diagnosis: Failed total hip arthroplasty with dislocation, 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 Last discharge within 30 days: Yes Is this a planned readmission?: No Unplanned Reason: Recurring symptoms of underlying disease Advance Directive: Current Advance Directive: Health Care Power of Tunnel Heading Supervisor In Chart: No Shop Blacksmith Attempted to Assist with AD Completion: Yes [...] the patient:: Self;Daughter;Son Name of Informant: : Augustine Functional Status: Needs Assistance Does Patient Currently Receive Any Community Services or Home Care?: Group Home Equipment Prior to Admission: Cane;Elevated toilet seat;Hospital Bed;Tub bench/chair;Rollator Scooter;Walker;Wheelchair;Other: See Comment ( I have everything I need available to me at [facility] ) Has the Patient Been in a Group Home Facility in the Past 30 days?: Yes Location and Dates: [facility], I've been in and out there SOCIAL: Living Arrangements: Nursing Facility Lives With: N/A Patient from Facility Facility Information: [facility] Financial Resources: Retired Primary Contact: Extended Emergency [...] needs: pt wants to return to [facility] Patient's perception of need for this admission: hip replacement Medication Adherance I am convinced of the importance of my prescription medication: 0 - Agree Completely I worry that my prescription medication will do more harm than good to me : 0 - Disagree Completely I feel financially burdened by my avt-fh-srjage expenses for my prescription medication:: 0 - Disagree Completely Risk Score: 0 Patient is categorized as: Low risk < 2 Are you interested in bedside delivery of your medications? No Is Patient Psychosocially Complex?: No ASSESSMENT AND PLAN: Medical Needs: Medical Needs: None Psychosocial Needs: Psychosocial Needs: None FREEDOM OF CHOICE EXPLAINED: [place] of Choice Given: No Reason Not Given: Patient refused (wants to return to SNF [facility]) POTENTIAL TRANSITION PLANS Group Home Facility/Intermediate Care Facility SW met with pt and her two children, Tania AND Colten, at bedside. Pt had hip replacement. Pt and children state that she came from [facility] and that she plans to return [...] 10, 2021 TIME: 6:17 PM PAGER/CONTACT #: [phone] Health [facility] [id number] PROGHNO ID: [id number] Author: Juan Cardoso RN Service: Nursing Author Type: Registered Nurse Type: Nursing Progress Note Filed: 02/10/2021 5:40 PM Note Text: Nursing Progress Note Patient Name: Roseann Dale Patient Location: [facility]-510D/SO-6A-675Q- Daily Note: Patient transferred from PACU into room 510-1 in stable condition. Patient A/Ox3. Patient educated on 5D policies and procedures. Patient educated post-operative hip replacement precautions. Patient educated on use of call light and call light within reach. Prior to admission medication list discussed and reviewed with patient. Will continue to monitor This note was completed by: Juan EdithRiverside Methodist HospitalOPERATIVE NO on [id number] NOHNO ID: [id number] Author: Parish Sullivan MD Service: Orthopaedic Surgery Author Type: Resident Type: Operative Report Filed: 02/10/2021 4:21 PM Note Text: Attestation signed by Alo Lomeli MD at 02/11/2021 4:32 PM Is present during the entire procedure including 9 cisse portions. The residents and PA assisted in the exposure and closure. Alo Lomeli MD OPERATIVE NOTE PATIENT NAME: Roseann Dale LOG ID: [id number] Surgery Date: 02/10/2021 Surgeon(s) and Warehouse Distribution Specialist(s): Surgeon(s) and Role: * Alo Lomeli [...] Implant Name Type Inv. Item Serial No. Community Health Counselor Lot No. LRB No. Used Action INSERT MOBILE BEARING HIP CHRISTIANITY 38D X3 22.2MM ACETABULAR ANATOMIC - [id number] Joint INSERT MOBILE BEARING HIP CHRISTIANITY 38D X3 22.2MM ACETABULAR ANATOMIC [facility] [id number] Right 1 Implanted HEAD V40 LFIT 22MM +0MM OFFSET TAPER COCR FEMORAL PRIMARY HIP - [id number] Joint - Hip HEAD V40 LFIT 22MM +0MM OFFSET TAPER COCR FEMORAL PRIMARY HIP [facility] [id number] Right 1 Implanted LINER 38MM D ACETABULAR MODULAR 2 MOBILITY HIP - [id number] Joint LINER 38MM D ACETABULAR MODULAR 2 MOBILITY HIP [facility] [id number] Right 1 Implanted Problem List: ACTIVE PROBLEM [...] administered, and appropriate pre-operative antibiotics were given. JUDY stocking was placed on the contralateral limb, along with a pneumatic pump to the calf. Following satisfactory induction of anesthesia, the limb was prepped, and draped in the usual sterile fashion. Before any surgical instrumentation was passed to me by the director medical surgical, a formalized time-out occurred, which involves the [...] degs of hip fl (more content not included)...Normal [facility] HospitalURGICAL PATHOLOGYon [id number] PATHOLOGYSpecimen originated from [facility] Specimen #: [id number] Submitting Physician: Alo Lomeli M.D. FINAL DIAGNOSIS Right hip, explants, removal - Femoral and acetabular components of a total hip arthroplasty (gross examination only). NITINB/TONY/abdon 02/11/2021 Ca May M.D. (Electronic Signature) SPECIMEN SUBMITTED A: REMOVED HARDWARE RIGHT HIP CLINICAL DATA FAILED TOTAL HIP ARTHROPLASTY WITH DISLOCATION, SUBSEQUENT ENCOUNTER; REVISION RIGHT HIP GROSS DESCRIPTION A. Received in formalin labeled as removed hardware right hip is a pink ceramic nodular femoral head and a polyethylene acetabular insert. The femoral head is inscribed as follows: 21 [id number] V40 32MM-4. There is significant metal transfer present. The acetabular insert is inscribed as follows: Size D. 123-0-32D YK4DX UHMWPE. There is no obvious evidence of wear. No tissue is present. No sections are submitted. The specimen is reviewed with Dr. May. Gross examination only. TONY/kr 02/11/2021 Gross examination performed at [facility], [address] [place] [address] Date of Report: 02/12/2021 Date of Procedure: 02/10/2021 Date of Receipt: 02/10/2021 Submitted by: Alo Lomeli M.D. Location: [facility] Diagnostic interpretation performed at [place] [address]. CLIA Number: [id number] HospitalXR PELVIS 1V APon 30-65-4641AF PELVIS 1V AP* * *Final Report* * * DATE OF [...] or dislocation. IMPRESSION: Postsurgical change. No complication. Cancer Researcher: PSCB Transcribe Date/Time: Feb 10 2021 5:13P Dictated by : JAGUAR SOSA MD This examination was interpreted and the report reviewed and electronically signed by: JAGUAR SOSA MD on Feb 10 2021 5:14PM EST [id number] Hospitals Geauga Medical Center [id number] ID: [id number] Author: Lexa Bocanegra MD Service: Orthopaedic Surgery Author Type: Resident Type: Discharge Summary Filed: 02/11/2021 4:15 PM Note Text: Attestation signed by Alo Lomeli MD at 02/13/2021 9:35 AM Instructions given Alo Lomeli MD ORTHOPEDIC SURGERY DISCHARGE SUMMARY ADMISSION DATE: 02/10/2021 [...] The patient was electively admitted to the [facility] on (Not on file). Surgery was scheduled [...] Patient Condition @ Discharge: Stable Discharge Disposition: Group Home Facility Other Information: None Discharge Activity/Weight Bearing Status: WBAT in knee immobilizer Information Provided to Patient: none The patient was instructed to follow-up as listed below. Future Appointments Date Time Provider Department Center 03/09/2021 10:50 AM [facility] ELOINA ACEVES [facility] 03/09/2021 11:20 AM MD NYA Spain [facility] Discharge Medications: Current Discharge Medication List START [...] as needed for o (more content not included)...[facility] [id number] (ORLUOP) ROSEANN DALE ([id number]) 1940 F Date Time Provider Department 02/03/21 ALO LOMELI ORJAUN During your visit today, we recorded the following information about you: CALVIN Almeida 02/03/2021 12:40 PM Signed I called 12:33 [...] by 4 PM, Tania advised to call [phone] CALVIN Almeida Allergies As of Date: 02/03/2021 (No Known Allergies) Date Reviewed: 01/22/2021 Reviewed by: Shayy Koenig RN - Fully Assessed 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: 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 - Other [3602] Prescriptions as of 02/03/2021 [...] hip replacement [Z96.641] 01/21/2021 Encounter Status:Closed by TRNEHA WILKINSON on 02/03/21[facility] Transfer Documentson [id number] Documents [id number]#1.00CD:127NormalKettering Health TroyCOVID-19 ([facility])on 42-46-0461OECG-CoV-2 (COVID-19) RNA JACKSON+probe Ql (Unsp spec)Not detectedNormalNot [facility] SystemComment on above: Result Comment: This test result should be correlated with clinical presentations and medical history by a healthcare provider to determine its clinical significance. This assay was performed by a reverse transcriptase real-time polymerase chain reaction (rt PCR) method on the [employer] system. This test has been authorized only [...] (1), unless authorization is terminated or revoked sooner.Performed By: #### [id number] #### [facility] [address] [place], [place] [address]NAQH-ZoO-4 (COVID-19) RNA JACKSON+probe Ql (Unsp spec)PassNormal PassKettering Health TroyComment on above:Performed By: #### [id number] #### [facility] [address], [place] [address]Gjeuouvi source Nom (Unsp spec)NasalNormalKettering Health TroyComment on above:Performed By: #### [id number] #### [facility] [address], [place] [address]Izcckacd in [facility] Comment on above:Performed By: #### [id number] #### [facility] [address], [place] [address]Bavrv TestNONSt. Elizabeth HospitalComment on above: Performed By: #### [id number] #### [facility] [address], [place] [address]Kxwnkiodgtas?YESNormNationwide Children's HospitalComment on above:Performed By: #### [id number] #### [facility] [address], [place] [address]IBXQYUizzwiAmyvrvOur Lady of Mercy Hospital - AndersonComment on above: Performed By: #### [id number] #### [facility] [address], [place] [address]Bbyzeahv?NONSt. Elizabeth HospitalComment on above: Performed By: #### [id number] #### [facility] [address], [place] [address]Aexgzzm in a [facility] Care SettingMercy Health St. Vincent Medical CenterComment on above:Performed By: #### [id number] #### [facility] [address], [place] [address]Daiifsasvdq as defined by [facility] Medical CenterComment on above:Performed By: #### [id number] #### [facility] [address], [place] [address]Hxg & Hgbon 38-63-5259Bhfgdkhunc (Bld) [Volume fraction]34.7 % Cxnndr11.0-46.0[facility] TroyComment on above:Performed By: #### [id number], [id number] ####[facility] [address] [place], [place] [address]Emjjmdnuru (Bld) [Mass/Vol]11.3 g/dLLow12.0-16.0[facility] TroyComment on above:Performed By: #### [id number], [id number] ####[facility] [address] [place], [place] [address]Nqyibuxue Clinical Summaryon 90-53-8608Rlrgtvrzm Clinical Summary [facility] [address] [place], [place] [address] Clinical Summary Person Information: Name: ROSEANN DALE Age: 81 Years : 1940 Sex: Female PCP: BLUE NAVARRO DO Marital Status: Race: White Ethnicity: Non- or Language: Tamazight Visit Id: Visit Reason: Post surgical problem; Hip pain-swelling; HIP PAIN, SWELLING, POST SURGICAL PROBLEM Speciality: Acuity: Enc Type: Observation Med Service: Medical Arrival: 01/31/2021 16:04:21 Discharge: Dispo Type: Admitted as IP to this [facility] Address: [address] [place] [id number] Provider Notes: Diagnosis: 1:Unspecified dislocation of right [...] Physician: Follow up: With: Address: When: ALO ARMANI [address] [place] [address] Business (1) Comments: Call for followup appointment for next week. With: Address: When: BLUE NAVARRO [facility] [place] [address] Business (1) Comments: Call for followup appointment 7-10 days Patient Education Information:[facility] CenterInpatient Patient Summaryon 19-06-6835Qcnibohhj Patient Summary [address] [address] Patient Discharge Instructions PERSON INFORMATION [...] TO THE NEAREST EMERGENCY ROOM OR CALL 217 Home Treatment: Devices/Equipment: Special Services: Additional Instructions: WBAT with knee immobilizer Primary Care Physician to provide the following pending test results: None Follow up: With: Address: When: ALO LOMELI [address] [place], [place] [id number] Business (1) Comments: Call for followup appointment for next week. With: Address: When: BLUE NAVARRO [address] [facility] [place] [place] [address] Business (1) Comments: Call for followup appointment 7-10 days In the event that this physician does not participate in your insurance network, please consult with your insurance company to find a nearby participating provider. Comment: SUYAPA Goff SANDRA R, have received the attached patient education materials/instructions and have verbalized understanding: Patient Signature Date Clinican/Nurse Signature Date HERE ARE THE MEDICATION CHANGES THAT OCCURRED DURING YOUR HOSPITAL STAY New Medications Printed Prescriptions tramadol (Ultram 50 mg Tab) 1 Tablets By Mouth every 6 hours as needed Pain. Refills: 0. Last Dose: Next Dose: Medications to Continue Taking That Have Changed Other Medications START: aspirin (aspirin 81 mg Oral EC Tab) 1 Tablets By Mouth 2 times a day. Last Dose: Next Dose: STOP: aspirin (aspirin 81 mg oral capsule) 81 Milligram By Mouth 2 times a day. START: diazepam (diazepam 5 mg Tab) 1 Tablets By Mouth every 6 hours as needed as needed for dizzines. Last Dose: Next Dose: STOP: diazepam By Mouth every 6 hours. START: docusate (docusate sodium 100 mg Cap) 1 Capsules By Mouth 2 times a day. Last Dose: Next Dose: STOP: docusate (docusate sodium 100 mg Cap) 1 Capsules By Mouth 2 times a day as needed for constipation. START: lisinopril (lisinopril 20 mg Tab) 1 Tablets By Mouth every day. Last Dose: Next Dose: STOP: lisinopril 20 Milligram By Mouth every day. START: meloxicam (meloxicam 15 mg oral tablet) 1 Tablets By Mouth every day. Last Dose: Next Dose: STOP: meloxicam 15 Milligram By Mouth every day. START: pantoprazole (Pantoprazole [address] Tab) 1 Tablets By Mouth every day. Last Dose: Next Dose: STOP: pantoprazole 40 Milligram By Mouth every day. Medications to Continue with No Changes Other Medications acetaminophen (Acetaminophen Extra Strength Gelcaps 500 mg) 1 Tablets By Mouth every 6 hours as needed as needed for pain. Last Dose: Next Dose: alendronate (alendronate 70 mg oral tablet) 1 Tablets By Mouth every week. Last Dose: Next Dose: citalopram (citalopram 20 mg Tab) By Mouth at bedtime. Last Dose: Next Dose: furosemide (furosemide 40 mg Tab) 1 Tablets By Mouth every day. Last Dose: Next Dose: gabapentin (gabapentin 300 mg Cap) 1 Capsules By Mouth 2 times a day. Last Dose: Next Dose: Comment: MEDICATION LIST PROVIDED FOR YOU [...] mg Tab) 1 T (more content not included)...[facility] CenterInterdisciplinary Note - Case Manageron 02-02-2021 Interdisciplinary Note - Case ManagerPt is awake and alert in bed, previously rounded with Ella [employer] AND [employer] EXPLORATION TECHNICIAN . PCP verified and insurance information reviewed [...] comfortable in private vehicle if WOB does nothave transport. States she will seee how she does with therapy and see. Discussed cost of WC van transpot van . States she will decide after working with therapy. CRM following. CRM returned to pt room. Updated on plan to DC today. Ra does not have transport available and Covid test will not be completed until 1430- 1500. Pt states she will have her family transport her, states , they already have the car seat set up for me Kayli VENEGAS updated.[facility] Medical CenterComment on above:Result Comment: Electronically Signed By: Johnathan VENEGAS, Zohra\.br\Date and Time Signed: 02/02/21 12:04 EDTInterdisciplinary Note - OT on 51-34-5464Htssxostqmpbtiuew Note - OTOT six clicks score 16/24 = SNF. pt requires assist to nataly/doff rt knee immobilizer d/t posterior hip disloc precautions. Patient requires extra time and cga w/ transfers and dynamic standing adls. OT to follow daily to progress as tolerates.[facility] Medical CenterLyteson 06-86-8549Tdxhi gap [Moles/Vol]13 mmol/LNormal6-16[facility] TroyComment on above:Performed By: #### [id number], [id number] ####[facility] [address] [place] [address] Chloride [Moles/Vol]98 mmol/QQfv628-196DazhdoKettering Health TroyComment on above:Performed By: #### [id number], [id number] ####[facility] [address] [place], [place] [address]AX5 [Moles/Vol]29 mmol/OCbzgnp43-48 [facility] TroyComment on above:Performed By: #### [id number], [id number] ####[facility] [address] [place] [address] Potassium [Moles/Vol]3.6 mmol/LNormal3.5-5.3[facility] BaltimoreComment on above:Performed By: #### [id number], [id number] ####[facility] [address] Ryannatch[address] hospitalaveryWH[place], [place] [address]Cdzytm [Moles/Vol]136 mmol/LNormal 135-145FishUniversity of Maryland Medical CenterComment on above:Performed By: #### [id number], [id number] ####[facility] [address] AveNnatchaug hospitalaveryWH[place], [place] [address]Nowvxlw from Medicareon 15-96-3064Gddxqxu from Medicare [id number]#1.00CD:127[facility] Medical CenterOutside Recordson 89-87-9459Sudosiu Records [id number]#1.00CD:127[facility] CenterProgress Note-Physicianon 55-84-8346Udzsjnka Note-PhysicianAssessment/Plan 1. Unspecified dislocation of right hip, initial encounter (S73.004A: Unspecified dislocation of right hip, initial encounter) -Status post closed reduction in the emergency department. Well-tolerated. -Pt is s/p right total hip arthroplasty done at [facility] on 01/22/2021; I did call and speak to Dr.Kim Lomeli orthopedic office and spoke to Neha RN; Per recommendations to be WBAT and knee [...] (Oral) HR: 78(Monitored) RR: 16 BP: 158/84 SpO2:95% WT: 74.5 kg Intake & Output This [...] aspirin 81 mg Ora (more content not included)...NormalKettering Health TroyComment on above:Result Comment: Electronically Signed By: Kristie ROMERO\.br\Date and Time Signed: 02/02/21 10:57 EDT\.br\Electronically Co-Signed By: Nancy ZHANG MD\.br\Date and Time Co-Signed: 02/02/2111:51 EDTBMP on 93-13-6469Xpbidgibnu [Mass/Vol]0.7 mg/dLNormal0.5-1.3[facility] BaltimoreComment on above:Performed By: #### [id number], [id number], [id number] ####[facility] [address] [place], [place] [address]Gipn nitrogen [Mass/Vol]14 mg/dLNormal5-21[facility] Health TroyComment on above: Performed By: #### [id number], [id number], [id number] ####[facility] [address] [place], [place] [address]Gnqm nitrogen/Creatinine [Mass ratio] 20 No HzodsKmdvgg83-81AdmcovKettering Health TroyComment on above:Performed By: #### [id number], [id number], 56341386 ####[address] [place], [place] [address]Fxogq gap [Moles/Vol]13 mmol/LNormal6-16[facility] Health TroyComment on above:Performed By: #### 5003332, 96293938, 65664550 ####[facility] [address] [place], [place] [address]Gllatlv [Mass/Vol]7.8 mg/dLLow8.9-11.1[facility] Of BaltimoreComment on above:Performed By: #### 9791485, 11892524, 73659381 ####[facility] [address] [place], [place] [address]Dealgjsf [Moles/Vol]100 mmol/L Dkk914-078RqhzyaKettering Health TroyComment on above:Performed By: #### 4815667, 02311694, [id number] ####[facility] [address] [place], [place] [address]MV2 [Moles/Vol]28 mmol/XAuipwx26-79OssdvsKettering Health TroyComment on above:Performed By: #### 0158850, 38232741, 32386344 ####[facility] [address] [place] [address] Glucose [Mass/Vol]120 mg/lOBwrewc50-598FxiqrvKettering Health TroyComment on above:Result Comment: If this glucose result represents a fasting glucose, interpretation should refer tothe following reference range: 55-99 mg/dL Performed By: #### [id number], [id number], 08502651 ####[facility] [address] [place], [place] [address]Gvcmxxlbu [Moles/Vol]3.3 mmol/LLow 3.5-5.3[facility] Hospital Of BaltimoreComment on above:Performed By: #### 6907251, 02532003, 32076259 ####[facility] [address] [place], [place] [address]Busrey [Moles/Vol]138 mmol/KUyjasl815-077RoikepKettering Health TroyComment on above:Performed By: #### 9664447, 28675107, 35663456 ####[facility] [address] [place], [place] [address]BFL w/Indiceson 07-37-1483Lfqymxozvpm distribution width (RBC) [Ratio]13.3 %Normal 10.9-14.2FLima Memorial HospitalComment on above:Performed By: #### [id number] #### [facility] [address] [place] [address]Ghzdkmoolb (Bld) [Volume fraction]32.5 %Low34.0-46.0[facility] Health TroyComment on above:Performed By: #### [id number] #### [facility] [address] [place] [address]Ofjxsxyguk (Bld) [Mass/Vol]10.6 g/dLLow12.0-16.0[facility] TroyComment on above:Performed By: #### [id number] #### [facility] [address] [place] [address]ERD (RBC) [Entitic mass]29.0 cjQcnwha44.0-34.0[facility] TroyComment on above:Performed By: #### 9755035 #### [facility] [address] [place] [address]PIDH (RBC) [Mass/Vol]32.5 g/gCZrbgjy89.4-36.0[facility] Health TroyComment on above:Performed By: #### 9502945 #### [facility] [address] [place] [address]ICS (RBC) [Entitic vol]89.4 rPHofujw34.0-100.0[facility] TroyComment on above:Performed By: #### [id number] #### [facility] [address] [place] [address]Rmlsbvaq mean volume (Bld) [Entitic vol]6.8 fLNormal6.4-10.8 [facility] TroyComment on above:Performed By: #### [id number] #### [facility] [address] [place] [address]Kkhioycft (Bld) [#/Vol]280.0 E9/GXvhkeh995.0-500.0[facility] Health TroyComment on above:Performed By: #### [id number] #### [facility] [address], [place] [address]SSK (Bld) [#/Vol]3.6 E12/LLow4.3-5.9[facility] Comment on above:Performed By: #### [id number] #### [facility] [address] [place], [place] [address]NOR corrected for nucl RBC Auto (Bld) [#/Vol]6.1 E9/LNormal 4.0-11.0[facility] Health TroyComment on above:Performed By: #### 5861890 #### [facility] [address], [place] [address]PAKNgi 48-72-2575LEBCWyhkpemuo (ORLUOP) ROSEANN DALE ([id number]) 1940 F Date Time Provider Department 02/01/21 ALO LOMELI ORLUJAREN During your visit today, we recorded the following information about you: CALVIN Almeida 02/01/2021 10:29 AM Signed I called Mirela daughter Elizabeth. Elizabeth states her mom, Mirela, was getting out of a recliner like chair and felt her hip go out Elizabeth called 911 and took Mirela to [facility]. Radiograph reviewed in care everywhere. Elizabeth states [...] lateral aspect of the right proximal femur. CALVIN Almeida 02/01/2021 10:29 AM Signed Kristie MEJIAS with [facility] at [facility] and states Mirela was admitted from ER and hip reduced. She does have a knee immobilizer on now and has pain with standing and walking and is very fearful of putting weight on leg. Kristie states plan is for Mirela to go to rehab facility for physical therapy. Dr Lomeli notified Neha CALVIN Monge . Allergies As of Date: 02/01/2021 (No [...] 01/21/2021 Encounter Status:Closed by NEHA MONGE on 08/17/21[facility] Documentationon 94-78-8555FCY Documentation [id number]#1.00CD:127NoOur Lady of Mercy Hospital - AndersonInterdisciplinary Note - OTon 98-20-7542Lzbyavnknjczpcxqe Note - OT 02/01/21: Ot order received and chart review completed. Weightbearing status unknown and [facility] has call out to original orthopedic surgeon for further direction regarding precautions/wb. Will await ortho information prior to initiating eval.[facility] Medical CenterInterdisciplinary Note - Social Workeron 66-64-3478Yrczmcoufualwxmeg Note - Social WorkerSW consult for placement was received. SW will continue to collaborate/work closely with CRM, patient, and family with any discharge needs/concerns. SW will remain available. [facility] CenterMessage from Medicareon 58-47-3248Kbnqvhq from [id number]#1.00CD:127NormalKettering Health TroyPT & PTTon 74-28-5359yKPO Coag (PPP) [Time]28.9 second(s)Normal 25.1-36.5FLima Memorial HospitalComment on above:Result Comment: Heparin therapeutic range (represented by Anti-Factor Xa activity of 0.2 - 0.4 U/mL) corresponds to PTT of 56.6 - 109.0 sec.Performed By: #### [id number], 05358061, 15408772 ####[facility] [address] [place], [place] [address]QNF Coag (PPP) [Relative time]1.1 {INR}Invalid Interpretation [facility] Bing, MD, Cancer CenterComment on above:Result Comment: INR results are specifically intended to assess patients stabilized on long-term Anticoagulation therapy suggested INR?s ?Less Intensive Anticoagulation? 2.0 ? 3.0 Conventional Range 3.0 ? 4.5Performed By: #### 6627765, 69107802, 21659007 ####[facility] [address] [place], [place] [address]QG Coag (PPP) [Time]12.6 second(s)Khegrb15.2-12.9[facility] Health TroyComment on above:Performed By: #### 4238966, 92591824, 55639353 ####[facility] [address] [place], [place] [address]Wjztqpuv Note-Physicianon 74-00-5283Zxnomfbb Note-PhysicianAssessment/Plan 1. Unspecified dislocation of right hip, initial encounter (S73.004A: Unspecified dislocation of right hip, initial encounter) -Status post closed reduction in the emergency department. Well-tolerated. -Pt is s/p right total hip arthroplasty done at [facility] on 01/22/2021; I did call and speak to Dr.Kim Lomeli [facility] office and spoke to RN; She did [...] Dr.Kim Lomeli orthopedic surgeon at [facility] who performed pt's RTH arthroplasty on 01/22/21. Subjective Patient doing well today. States she is having no pain. Feels okay. States she does not feel she isable to walk. She is pending PT/OT evaluation and recommendations. States that she follows with Dr.Kim Armani MD-will call and notify of pt admission. [...] PT: 12.6 second(s) (02/01/21 07:51:00) INR: 1.1 (02/01/21 07:51:00) PTT: 28.9 second(s) (02/01/21 07:51:00) Glucose Lvl: [...] Daily heparin 5000 unit (more content not included)...[facility] Medical CenterComment on above:Result Comment: Electronically Signed By: Kristie ROMERO\.br\Date and Time Signed: 02/01/21 10:32 EDT\.br\Electronically Co-Signed By: Kristie ROMERO\.br\Date and Time Co-Signed: 02/01/21 10:43 EDT\.br\Electronically Co-Signed By: Nancy ZHANG MD\.br\Date and Time Co- Signed: 02/01/21 12:54 EDTXR Hip 1 View Righton 98-29-0612OJ Hip 1 View Right Exam Date/Time: 01/31/2021 [...] Elijah Devi M.D. Transcribed by: KASSIE Technologist: [facility] HospitalXR Pelvis 1 or 2 Viewson 37-69-3692JX Pelvis 1 or 2 ViewsExam Date/Time: 01/31/2021 16:39 EDT Reason for Exam: [...] Elijah Devi M.D. Transcribed by: KASSIE Technologist: [facility] HospitaleGFRon 54-25-4356AQP/1.73 sq M.predicted among blacks MDRD (S/P/Bld) [Vol rate/Area] mL/min/{1.73_m2}Normal>=[address] [place], [place] [address]Comment on above:Order Comment: Order added by Discern Expert.Result Comment: eGFR is race adjusted. AA=.Performed By: #### [id number], [id number], [id number] ####[facility] [address] [place], [place] [address]DBT/1.73 sq M.predicted among non-blacks MDRD (S/P/Bld) [Vol rate/Area]mL/min/{1.73_m2} Normal>=59K[facility] Health TroyComment on above:Order Comment: Order added by Discern Expert.Result Comment: Chronic kidney disease could be indicated at eGFR's of less than 60 mL/min/1.73m2. Kidney failure is indicated at less than 15 mL/min/1.73m2.Performed By: #### 1851617, 05143144, 57453955 ####[facility] [address] [place], [place] [address]Vavsgzg for Procedure/Surgeryon 03-97-5560Xgmxqnx for Procedure/Surgery [id number]#1.00CD:127[facility] Medical CenterConsent for Procedure/Surgery [id number]#1.00CD:127[facility] Medical CenterConsent for Treatmenton 76-94-8149Rmfveoz for Treatment [id number]#1.00CD:127[facility] Clinical Summaryon 10-94-6727TL Clinical Summary [address] [address] ED Clinical Summary Person Information Name: ROSEANN DALE Rosalinda/[facility] Age: 81 Years : 1940 Sex: Female Language: Tamazight PCP: BLUE NAVARRO DO Marital Status: Visit Id: Visit Reason: Post surgical problem; Hip pain-swelling; HIP PAIN, SWELLING, POST SURGICAL PROBLEM Speciality: Acuity: 4 Enc Type: Observation Med Service: Medical Arrival: 01/31/2021 16:04:21 Discharge: LOS: 000 05:32 Checkin: 01/31/2021 16:04:21 Checkout: 01/31/2021 21:36:17 Dispo Type: Admitted as IP to this Hosp EVENTS: Event Name Event Status Request Date/Time [...] 21:21:55 Patient Care Request 01/31/2021 21:21:56 ADDRESS: [address] [place] [phone] [facility] DOC NOTES: MEDICAL INFORMATION: Prescriptions Given: PATIENT EDUCATION INFORMATION: Instructions: Follow up: DIAGNOSIS: Unspecified dislocation of right hip, initial encounterNoFreeman Cancer Institute Medical CenterED Note-Physicianon [id number] Note-PhysicianBasic Information Time Seen: Dawood Garber DO 01/31/2021 16:08 Chief Complaint Pt c/o right hip pain. Pt had total hip surgery 01/22 at . Pain intensifying in last 2 days. 1mg of Dilaudid given STITCHER OPERATOR by EMS. Physical Exam Vitals & Measurements [...] STAT, Start date 01/31/21 17:25:00 EDT, AT [facility], 01/31/21 17:25:00 EDT Conscious Sedation [...] No obvious fracture. Read By: Dawood Garber DOFlower Hospital CenterED Note-Physician Basic Information Time Seen: Dawood Garber DO 01/31/2021 16:08 Chief Complaint Pt c/o right hip pain. Pt had total hip surgery 01/22 at . Pain intensifying in last 2 days. 1mg of Dilaudid given STITCHER OPERATOR by EMS. History of Present Illness 81-year-old female to the emergency department chief complaint of right hip pain. Patient had a hipre[facility] surgery on January [facility] at [facility]. She reports today she was attemptingto sit up and felt a pop in [...] complaint of right hip pain. Vital stable, thepatient is afebrile. Right hip is neurovascularly intact. Suspect hip dislocation. X-ray was ordered and shows a dislocation. Fentanyl was given for pain. Findings were discussed with the patient. Her family members were also present. They were having a hard time deciding if they would like reduction here if they would like transferred to [facility]. I discussed with him that this is a common procedure and can be performed here. They would likewe discussed with Ortho first which I believe is reasonable. Several calls were placed in the patient's orthopedic surgeon at the [facility] which were not returned. Case was discussed [...] to consent for the procedure. Eventually they consentedto have procedural sedation and a closed hip reduction performed in the emergency department. See procedure note for details. Successful procedure. No immediate complications. Patient recoveredwell from sedation. Family does not feel comfortable [...] was placed. Patient tolera (more content not included)...[facility] Medical CenterComment on above:Result Comment: Electronically Signed By: Dawood Garber DO\.br\Date and Time Signed: 08/29/21 19:45 EDTED Patient Education Noteon 91-72-1458MS Patient Education NoteNormLuisKennedy Krieger Institute CenterED Patient Summaryon [id number] Patient Summary [place] [id number] Patient Discharge Instructions Person Information Name: ROSEANN DALE Age: 81 Years Arrival Date: 01/31/2021 16:04:21 Discharge Diagnosis: Unspecified dislocation of right hip, initial encounter Primary Care Physician: BLUE NAVARRO DO Provider Information Primary Provider: Dawood Garber DO Advanced Septic Technician:None The exam and treatment you received in the Emergency Department were for an urgent problem and are not intended as complete care. It is important that you follow up with a doctor, nurse practitioner,or physician?s entry level administrative assistant for ongoing care. If your symptoms [...] opioids can be used to help relieve rbrbajbv-yf-amhdim pain and are often prescribed following a [...] and have fewer risks and side effects. Optionsmay include: ? Pain relievers such as acetaminophen, [...] unused prescription opioids: Find your community drug take- back program or yourpharmacy mail-back program, or flush them down the toilet, following guidance from the Food and Drug Administration (www.fda.gov/Drugs/ResourcesForYou). ? Visit www.cdc.gov/drugoverdose to learn about the risks of opioids abuse and overdose. ? If you believe you may be struggling with addiction, tell your health healthcare customer service and ask for guidance or call SAMHSA?S National Helpline at 0-014-685-HELP. v Source: US Department of Health and Human Services/Center for Disease Control & Prevention [facility] Medications Given: (more content not included)...[facility] CenterMonitor Recordon 54-08-3152Bfrqmni [id number]#[id number]:127 [facility] CenterMonitor Record [id number]#1.00CD:127NormNationwide Children's HospitalPre-Arrival Noteon 83-57-8183Noa-Arrival NotePre-Arrival Summary Name: , Current Date: 01/31/2021 16:07:49 EDT Gender: Female Date of : Age: 81 Pre-Arrival Type: EMS ETA: 01/31/2021 16:26:00 EDT Primary Care Physician: Presenting Problem: Pre-Arrival User: Annamarie Mejia RN Referring Source: Location: [place] Completion Date/Time: 01/31/2021 15:55:00 [facility] Emergency Department Pre-Hospital Report Form Vital Signs: Pre-Hospital Report:c/o right hip pain. prior hip surgery January 22. 24G in R Hand. Treatment in Route: Response to Treatment: Misc. Issues:[facility] CenterBasic Metabolic Panlon 01-23-2021 Anion gap [Moles/Vol]7 mmol/LLow9-18[facility] HospitalComment on above:Performed By: #### CBC, BMP ####[facility] [address] [phone] [Mass/Vol]7.9 mg/dLLow8.5-10.2[facility] HospitalComment on above:Performed By: #### CBC, BMP ####[facility] [address] [phone] [Moles/Vol]102 mmol/HXnuksa88-485 [facility] HospitalComment on above:Performed By: #### PAULINE, BMP ####[place] [phone] [Moles/Vol]29 mmol/ZYrobxz21-29Cpuqxdhw HospitalComment on above:Performed By: #### CBC, BMP ####[address] Creatinine [Mass/Vol]0.73 mg/dLNormal0.58-0.96[facility] HospitalComment on above: Performed By: #### PAULINE, BMP ####[place] [phone]-African Amer.>60Normal>60[facility] healthcarean HospitalComment on above:Performed By: #### PAULINE, BMP ####[place] [phone]-All Other Races>60Normal>60[facility] HospitalComment on above:Result Comment: eGFR (Estimated GFR) Units of measure: [...] the eGFR may not accurately reflect actual GFR.Performed By: #### CBC, BMP ####[facility] [address] [phone] [Mass/Vol]134 mg/bZAefi11-57Zptbcelq HospitalComment on above:Performed By: #### CBC, BMP ####[facility] [place] [phone] [Moles/Vol]4.1 mmol/LNormal3.7-5.1L[facility] Comment on above:Performed By: #### CBC, BMP ####[place] [phone] [Moles/Vol]138 mmol/QDcipkt705-060 [facility] HospitalComment on above:Performed By: #### CBC, BMP ####[place] [phone] nitrogen [Mass/Vol]14 mg/dLNormal7-21[facility] HospitalComment on above:Performed By: #### CBC, BMP ####[place] [phone] 76-77-0151Meskqley nRBC0.02 k/uLHigh<0.01[facility] HospitalComment on above:Performed By: #### CBC, BMP ####[place] [phone] distribution width (RBC) [Ratio]12.7 %Sthqro66.5-15.0[facility] HospitalComment on above:Performed By: #### CBC, BMP ####[place] [phone] (Bld) [Volume fraction]35.6 %Low36.0-46.0[facility] HospitalComment on above:Performed By: #### CBC, BMP ####[place] [phone] (Bld) [Mass/Vol]10.8 g/dLLow11.5-15.5[facility] HospitalComment on above:Performed By: #### CBC, BMP ####[place] [address]13216-363-2018MCH28.9 pVBzkgzj60.0-34.0[facility] HospitalComment on above:Performed By: #### CBC, BMP ####[place] [phone] (RBC) [Mass/Vol]30.3 g/dLLow30.5-36.0[facility] HospitalComment on above:Performed By: #### CBC, BMP ####[place] [phone] (RBC) [Entitic vol]95.2 mBOerprm39.0-100.0[facility] Comment on above:Performed By: #### CBC, BMP ####[place] [phone] mean volume (Bld) [Entitic vol] 10.0 fLNormal9.0-12.7[facility] HospitalComment on above:Performed By: #### CBC, BMP ####[place] [phone] Platelets (Bld) [#/Vol]139 10*3/tMUly565-848Vwwyqnui HospitalComment on above: Performed By: #### CBC, BMP ####[place] [phone] (Bld) [#/Vol]3.74 10*6/uLLow3.90-5.20[facility] Comment on above:Performed By: #### CBC, BMP ####[place] [phone] (Bld) [#/Vol]5.71 10*3/uLNormal 3.70-11.00[facility] HospitalComment on above:Performed By: #### CBC, BMP ####[place] [phone] 45-46-5834GOPNSDA ID: [id number] Author: Martita Barakat MD Service: Orthopaedic Surgery Author Type: Resident Type: Discharge Summary Filed: 01/23/2021 9:05 AM Note Text: Attestation signed by Alo Lomeli MD at 01/28/2021 4:39 PM Instructions given Alo Lomeli MD ORTHOPEDIC SURGERY DISCHARGE SUMMARY ADMISSION DATE: 01/22/2021 [...] The patient was electively admitted to the [facility] on 01/22/2021. Surgery was scheduled and on [...] January 23, 2021 TIME: 9:04 AM PAGER: [phone] Health [facility]: [id number] Author: Rachael Hernandez RN Service: Nursing Author Type: Registered Nurse Type: Nursing Progress Note Filed: 01/23/2021 12:38 PM Note Text: Nursing Progress Note Patient Name: Roseann Dale [facility]/HH-1U-105W- Daily Note:Pt watched discharge video. This note was completed by: Rachael HernandezFairfield Medical CenterTHERAPY NTon 45-98-9396NUNGKNM NTHNO ID: [id number] Author: Robson Land PTA Service: Physical Therapy Author Type: Roll Winder Type: Therapy (PT/OT/Speech/Resp) Filed: 01/23/2021 5:03 PM Note Text: Attestation signed by Shirin Gamez PT at 01/25/2021 11:19 AM I reviewed and agree with the documentation corresponding to this therapy visit. SIGNATURE: Shirin Gamez PT DATE: January 25, 2021 TIME: 11:19 AM Physical Therapy Treatment SERVICE DATE: 01/23/2021 SERVICE TIME: 1250 to 1330 ROOM: [place] [address] Recommended Discharge Disposition: Home PT Anticipated Discharge Needs: Physical Assist at Home Physical Assist at Home for: Cleaning;Laundry;Shopping;Transportation;Meals Recommended Discharge Equipment: No equipment needs anticipated [...] Impairment;Balance Impaired Treatment Interventions: Education;Energy Conservation Training;Joint Mobility;Strengthening;Functional Mobility Training;Balance Training;Modalities;Edema Management;Pain Management Modalities: Ice [...] Equipment Owned: Cane;Grab Bars-Shower;Grab Bars-Toilet;Wheeled Walker;Elevated Toilet Seat;Preparation Supervisor Prior Functional Level: Within Functional Limits [...] able to maintain balance while turning head/trunk JH-HLM: 7: Walk 25 feet or more Learning/Educational Needs: Discharge Plan;Functional Activities/Mobility;Pain Management;Plan of Care;Precautions;Rehabilitation Techniques and Procedures;Safety Goals for Plan of [...] Diagnosis: Reduced mobility-other Interventions Provided: Therapeutic Exercise (99563);Therapeutic Activity (82478);Gait Training (00237) Therapeutic Exercise (23644) Treatment Minutes: 15 $ Therapeutic Exercise (56716) Billed Units: 1 unit Therapeutic Activity (27875) Treatment Minutes: 15 $ Therapeutic Activity (54617) Billed Units: 1 unit Gait Training (53587) Treatment Minutes: 10 $ Gait Training (26895) Billed Units: 1 unit Total Timed Code Treatment Minutes: 40 Total Treatment Time (minutes): 40 Please see discipline specific clinical documentatio (more content not included)...[facility]: [id number] Author: Thi Thomas, OT/L Service: Occupational Therapy Author Type: Occupational Therapist Type: Therapy (PT/OT/Speech/Resp) Filed: 01/23/2021 11:35 AM Note Text: Occupational Therapy Evaluation SERVICE DATE: 01/23/2021 SERVICE TIME: 1032 to 1115 ROOM: [id number] Recommended Discharge Disposition: Home OT Anticipated Discharge Needs: Physical Assist at Home Physical Assist at Home for: Cleaning;Laundry;Shopping;Transportation;Meals Pt cleared for d/c to home with PRN family assist once medically cleared. Pt has 24/7 support available. OT 6 Clicks Score: 22 Precautions/Activity Restrictions: Fall Risk;Lines/Tubes/Drains;Total Hip Replacement;Weight Bearing Restrictions Extremity With Weight [...] Equipment Owned: Cane;Grab Bars-Shower;Grab Bars-Toilet;Wheeled Walker;Elevated Toilet Seat;Preparation Supervisor Prior Functional Level: Within Functional Limits [...] attempted Learning/Educational Needs: Discharge Plan;Functional Activities/Mobility;Plan of Care;Precautions;Rehabilitation Techniques and Procedures Goals for Plan of [...] living (ADL);Unsteadiness on feet Interventions Provided: Evaluation;Self Fci Management (10543) $ Evaluation-Low (63916) Billed Units: 1 unit Self Fci Management (46098) Treatment Minutes: 28 $ Self Fci Management (91373) Billed Units: 2 units Training AND education [...] evaluation/treatment. SIGNATURE: Thi Thomas, (more content not included)...[facility] [id number] HEALTHHNO ID: [id number] Author: RT Jose(R) Service: Radiology Author Type: Pharmacy Sales Assistant Type: Allied Health Filed: 01/22/2021 9:48 AM [...] BY: RT Jose(R) January 22, 2021 9:47 AMNGlenbeigh HospitalANES POSTPROC EVALon 01-22-2021 ANES POSTPROC EVALHNO ID: [id number] Author: Dm Leonardo II, DO Service: Anesthesiology [...] January 22, 2021 TIME: 11:14 AM CSN: [id number] [facility] PRE-OPon [id number] PRE-OPHNO ID: [id number] Author: Dm Leonardo II, DO Service: Anesthesiology [...] Yes Vitals Value Taken Time BP 159/84 01/22/21632 Pulse 66 01/22/21632 Resp 16 01/22/21632 Temp [...] January 22, 2021 TIME: 6:55 AM CSN: [id number] Health [facility] NOTon 01-22-2021 BRIEF OP NOTHNO ID: [id number] Author: Alo Lomeli MD Service: Orthopaedic Surgery Author Type: Physician Type: Brief Op Note Filed: 01/22/2021 9:17 AM Note Text: BRIEF OPERATIVE / PROCEDURE NOTE LOG ID: [id number] SURGERY/PROCEDURE DATE: 01/22/2021 INCISION/PROCEDURE START TIME: 8:08 AM INCISION CLOSE/PROCEDURE END TIME: 9:04 AM SURGEON(S)/PROCEDURALIST(S) AND HEALTHCARE SPECIALIST(S): Surgeon(s) and Role: * Alo Lomeli MD - Primary Physician Warehouse Distribution Specialist: Rodrigue Zabala PA-C Hogshead Inspector: Trisha Stafford SURGERY/PROCEDURE(S): Right LELAND ANESTHESIA: General FINDINGS: OA ESTIMATED BLOOD LOSS: 150 mls SPECIMENS: None COMPLICATIONS: None PRE-OP/PRE-PROCEDURE DIAGNOSIS: OA right hip POST-OP/POST-PROCEDURE DIAGNOSIS: Same as Preop SIGNATURE: Alo Lomeli MD PATIENT NAME: Roseann Dale DATE: January 22, 2021 TIME: 9:17 AMNormalNondenominational HospitalCASE MGT INIT [facility]Dign[facility] 03-19-2570RZSE MGT [facility]NOR[facility] ID: [id number] Author: Sallie Olguin RN Service: ? Author Type: Registered Nurse Type: Care Mgt Initial Assessment Filed: 01/22/2021 11:55 AM Note Text: CARE MANAGEMENT PROGRESS NOTE SERVICE DATE: 01/22/2021 SERVICE TIME: 11:53 am LOS: 0 days - Procedure(s) (LRB): ARTHROPLASTY REPLACE JOINT TOTAL HIP (Right) [place] of Choice Given: Yes Level of Care Discussed: Home Care Financial Disclosure Provided: Yes Financial Disclosure Comments: [facility] affiliation Provider list within the patient's requested geographic area shared with the patient/family: No ([facility]) Quality and resource use metrics shared with [...] a high toilet seat Referral made to [facility] for the home PT / OT she will need. CM Department will continue to follow. SIGNATURE: Sallie Olguin RN PATIENT NAME: Roseann Dale DATE: January 22, 2021 TIME: 11:53 AM PAGER/CONTACT #: [phone] State Health System 09-23-2899ESKCDHTNOL ID: [id number] Author: Fernando Vazquez MD Service: General Internal Medicine Author Type: Physician Type: Consults Filed: 01/22/2021 2:49 PM Note Text: CONSULT: MEDICAL SERVICE SERVICE DATE: 01/22/2021 SERVICE TIME: 2:46 PM REASON FOR CONSULT: post op medical care REQUESTING PHYSICIAN: Armani PRIMARY CARE PHYSICIAN: Blue Navarro DO Subjective Ms. Dale is a 81 year old [...] 61 Temp (Src) 97.2 (more content not included)...[facility] 26-75-3464KZBZAJQ PROGHNO ID: [id number] Author: Shayy Koenig, RUBI Service: ? Author Type: Registered Nurse Type: Nursing Progress Note Filed: 01/22/2021 10:28 AM Note Text: Nursing Progress Note Patient Name: Roseann Dale Patient Location: DL512D/ZN-7P-970T- Transfer Note: Patient transferred into room/unit 512 in stable condition. Actions taken: Patient and family oriented to 5D unit policies and procedures. Educated on fall precautions, reason for JUDY's, pain management, prescribed medications, use of incentive spirometer, and use of call salter prior to getting OOB. Patient resting in bed. Call light within reach. All needs met at this time. Will continue to monitor. This note was completed by: Shayy HallWVUMedicine Harrison Community HospitalOPERATIVE NO on [id number] NOHNO ID: [id number] Author: Alo Lomeli MD Service: Orthopaedic Surgery Author Type: Physician Type: Operative Report Filed: 01/22/2021 9:19 AM Note Text: OPERATIVE/PROCEDURE REPORT LOG ID: [id number] Surgery/Procedure Date: 01/22/2021 Incision/Procedure Start Time: 8:08 AM Incision Close/Procedure End Time: 9:04 AM Surgeon(s)/Proceduralist(s) and Warehouse Distribution Specialist(s): Surgeon(s) and Role: * Alo Lomeli MD - Primary Asst Rodrigue SMITH and Trisha Stafford SA Anesthesia: General Preop Diagnosis: Pre-Op Diagnosis Codes: * Primary osteoarthritis of right hip [M16.11] Postop Diagnosis: Pre-Op Diagnosis Codes: * Primary osteoarthritis of right hip [M16.11] Procedure(s): Procedure(s) (LRB): ARTHROPLASTY REPLACE JOINT TOTAL HIP (Right) Implants: Implant Name Type Inv. Item Serial No. Community Health Counselor Lot No. LRB Model Num No. Used HEAD V40 32MM -4MM OFFSET TAPER BIOLOX DELTA FEMORAL HIP - [id number] Joint - Hip HEAD V40 32MM -4MM OFFSET TAPER BIOLOX DELTA FEMORAL HIP [employer] [id number] Right [id number] 1 SCREW TRIDENT II 6.5MM 30MM BONE LOW PROFILE HEXAGONAL STERILE - [id number] Screw SCREW TRIDENT II 6.5MM 30MM BONE LOW PROFILE HEXAGONAL STERILE [employer] [id number] Right [id number] 1 SHELL TRIDENT II 50MM D TRITANIUM ACETABULAR 3 SCREW HOLE CLUSTER STERILE - [id number] Joint SHELL TRIDENT II 50MM D TRITANIUM ACETABULAR 3 SCREW HOLE CLUSTER STERILE [employer] [id number] Right 702-04-50D 1 TRIDENT X3 POLYETHYLENE INSERT 0DEG 32MM SZ D Implant CHRIS [id number] Right 723-00-32D 1 STEM ACCOLADE II 5 127D FEMORAL - [id number] Joint - Hip STEM ACCOLADE II 5 127D FEMORAL [facility] [id number] Right 8617-6293 1 Problem List: ACTIVE PROBLEM LIST Right [...] and performed the proc (more content not included)...[facility] CenterTHERAPY [facility] [id number] NTO ID: [id number] Author: Bruno Boogie, PT Service: Physical Therapy Author Type: Physical Therapist Type: Therapy (PT/OT/Speech/Resp) Filed: 01/22/2021 4:17 PM Note Text: Physical Therapy Evaluation SERVICE DATE: 01/22/2021 SERVICE TIME: 1356 to 1436 ROOM: [place] [address] Recommended Discharge Disposition: Home PT Anticipated Discharge Needs: Physical Assist at Home Physical Assist at Home for: Cleaning;Laundry;Meals;Shopping;Transportation;Self Care Recommended Discharge Equipment: No equipment needs [...] Deficits;Decreased Strength;Functional Mobility Impairment;Balance Impaired Treatment Interventions: Education;Strengthening;Functional Mobility Training;Balance Training;Neuromuscular Re-education Plan for next [...] General Deviations/Observations: Antalgic gait;Eleanor decreased;Step length decreased -HLM: 7: Walk 25 feet or more Learning/Educational Needs: Discharge Plan;Functional Activities/Mobility;Pain Management;Safety;Precautions Goals for Plan of Care: Patient /Caregiver [...] Diagnosis: Difficulty walking-musculoskeletal Interventions Provided: Evaluation;Therapeutic Exercise (89826);Gait Training (26008) $ Evaluation-Low (93841) Billed Units: 1 unit Therapeutic Exercise (07624) Treatment Minutes: 15 $ Therapeutic Exercise (15072) Billed Units: 1 unit Gait Training (93441) Treatment Minutes: 10 $ Gait Training (82836) Billed Units: 1 unit Training AND education provided in: Anatomy and impact on deficits, Assistive device use, Bed mobility, Benefits of in-hospital mobility, Discharge planning, Exercise program, Expected functional level, Falls prevention, Gait pattern, reduction of deviations, Standing balance, Role of Physical Therapy, Precautions/restrictions, Pre-gait activities, Positioning, Pain Neuroscience The following therapeutic skills were use (more content not included)...[facility]XR PELVIS 1V APon 16-85-6658KE PELVIS 1V AP* * *Final Report* * * DATE OF [...] IMPRESSION: Status post right total hip arthroplasty. Cancer Researcher: PSCB Transcribe Date/Time: Jan 22 2021 9:47A Dictated by : THI YUEN MD This examination was interpreted and the report reviewed and electronically signed by: THI YUEN MD on Jan 22 2021 9:47AM EST [id number] HospitalXR PELVIS 1V AP* * *Final Report* * * DATE OF [...] Intraoperative examination for surgical planning and documentation. Cancer Researcher: ANNA Transcribe Date/Time: Jan 22 2021 12:43P Dictated by : SHU PRADO DO This examination was interpreted and the report reviewed and electronically signed by: SHU PRADO DO on Jan 22 2021 12:43PM EST [id number] MountainStar Healthcare Metabolic Panlon 01-20-2021 Anion gap [Moles/Vol]10 mmol/LNormal9-18[facility] on above:Performed By: #### FERR ####[place] [address] [address], [place] [phone] [Mass/Vol]9.2 mg/dLNormal8.5-10.2 [facility] on above:Performed By: #### FERR ####[place] [address] [address]W[place], [place] [phone] [Moles/Vol]100 mmol/PPyreyo31-814BklhxsotiCleveland Clinic [facility]'s Hospital for [facility] on above: Performed By: #### FERR ####[place] [address] [address], [place] [phone] [Moles/Vol]29 mmol/YQddhzx67-90PhdldparuC[facility] Clinic [facility] for [facility] on above:Performed By: #### FERR ####[place] [address] [address], [place] [phone] [Mass/Vol]0.66 mg/dLNormal0.58-0.96[facility] on above: Performed By: #### FERR ####[place] [address] [address], [place] [phone]-Fnppxmp Amer.>60NormalCACMC Healthcare System on above:Performed By: #### FERR ####[facility] [place], [place] [phone]-Ipx Other Races >60NormalCACMC Healthcare System on above:Result Comment: eGFR (Estimated GFR) Units of measure: [...] the eGFR may not accurately reflect actual GFR.Performed By: #### FERR ####[place] [address] [place], [place] [phone] [Mass/Vol]102 mg/fAYbcr22-34JmivofcnlC[facility] Clinic [facility] on above:Result Comment: The [place] Diabetes Association (ADA) provides guidance for cutoff values for fasting glucose and random glucose. The ADA defines fasting as no caloric intake for at least 8 hours. Fasting plasma glucose results between 100 to 125 mg/dL indicate increased risk for diabetes (prediab etes). Fasting plasma glucose results greater than or [...] Standards of Medical Care in Diabetes 2016, [place] Diabetes Association. Diabetes Care. 2016.39(Suppl 1).Performed By: #### FERR ####[facility], [place] [phone] [Moles/Vol]4.0 mmol/LNormal3.7-5.1CMemorial Hospital Comment on above:Performed By: #### FERR ####[facility], [place] [phone] [Moles/Vol]139 mmol/LNormal 136-144[facility] on above:Performed By: #### FERR ####[place] [phone] -[phone] nitrogen [Mass/Vol]15 mg/dLNormal7-21[facility] on above:Performed By: #### FERR ####[place] [phone] 98-50-7109Qbdvjxcr nRBC<0.01Normal <0.01[facility] on above:Performed By: #### FERR ####[place] [phone] -5109Erythrocyte distribution width (RBC) [Ratio]12.3 %Gqillm92.5-15.0[facility] on above:Performed By: #### FERR ####[place] [phone] (Bld) [Volume fraction]43.1 %Rxezyl71.0-46.0[facility] on above:Performed By: #### FERR ####[place] [phone] (Bld) [Mass/Vol]13.5 g/dLNormal 11.5-15.5CAC[facility] on above:Performed By: #### FERR ####[place] [phone] -7398MCH28.8 mJAhwlro11.0-34.0[facility] on above: Performed By: #### FERR ####[place] [phone] (RBC) [Mass/Vol]31.3 g/dLNormal 30.5-36.0[facility] on above:Performed By: #### FERR ####[place] [address] [place] [phone] [phone] (RBC) [Entitic vol]91.9 qQIijlwu31.0-100.0[facility] Comment on above:Performed By: #### FERR ####[address] AvKrist[address] [place] [phone] mean volume (Bld) [Entitic vol]9.6 fLNormal9.0-12.7CMercy Health Springfield Regional Medical Centerment on above:Performed By: #### FERR ####[place] [phone] (Bld) [#/Vol]195 10*3/aBWwjwaa586-129ClrwrozlyHolmes County Joel Pomerene Memorial Hospitalment on above:Performed By: #### FERR ####[place] [address] [address] Av[address] [place] [phone] (Bld) [#/Vol] 4.69 10*6/uLNormal3.90-5.20[facility]ome[facility] Hospitalment on above:Performed By: #### FERR ####[address] [place] [phone] (Bld) [#/Vol]5.92 10*3/uLNormal3.70-11.00[facility] on above:Performed By: #### FERR ####[place] [address] [place] [phone] 62-24-5398Pkccoxut [Mass/Vol]69.4 ng/rRRlbwam36.7-205.1CAC[facility] System on above:Performed By: #### FERR ####[place] [address] [address] Av[address] [place] [phone]HZU PHYSICALon 58-63-5161MPQQKUX PHYSICALHNO ID: [id number] Author: Sita Montiel APRN.[facility] Service: ? Author Type: Nurse Practitioner Type: [...] > 1 time per night or hematuria. ENTRY LEVEL MARKETING REPRESENTATIVE: Negative for abnormal vaginal bleeding, abnormal vaginal [...] except right hip- detailed (more content not included)...Normal [facility] HospitalIron and TIBCon 20-69-5797Rpcv [Mass/Vol]73 ug/dL Zysnbc65-194AyyhhbogvC[facility] Clinic [facility] on above:Performed By: #### FERR ####[place] [phone] ug/pPKaasxr201-335ZmkhaufhcC[facility] Clinic [facility] on above: Performed By: #### FERR ####[place] [phone] Mdybxbyx73 %Rdxguw29-73BfpslkrdyCleveland Clinic [facility]'s [facility] for [facility] on above:Performed By: #### FERR ####[address] [phone]/PreProc COVID on 79-86-7413EOPB-CoV-2 (COVID-19) RNA JACKSON+probe Ql (Unsp spec)UPPER RESPIRATORY TRACT SWABNormalCACMC Healthcare System on above:Performed By: #### POCOVD ####[address] [phone]-GmD-2 (COVID-19) RNA JACKSON+probe Ql (Unsp spec)Negative for COVID19 (SARS CoV2) by RT-PCR or equivalent method.NormalNegative for COVID19 (SARS CoV2) by RT-PCR or equivalent method.[facility] on above:Result Comment: This test was developed and its performance characteristics determined by [facility]'s [facility] [place]. This test has been authorized by FDA under an Emergency Use Authorization (EUA). This test has been validated in accordance with the FDA's Guidance Document Policy for DiagnosticsTesting in Laboratories Certified to Perform High Complexity Testing under CLIA prior to Emergency use Authorization for Coronavirus Disease 2019 during the Public Health Emergency issued on August 03, 2019. Test performed by [facility] [place] [facility], [facility] [place], [address], [place] [address].Performed By: #### POCOVD ####[facility] [address], [place] [phone] and SCR (30D)on 04-55-8995OXE/RH(D) PositiveNormalLutheuporan HospitalComment on above:Performed By: #### TSCR30 #### [place] [address] Toanstkhn By: #### CONABO #### [place] [address] KSYNmo [id number] Visit (ORMIDD) ROSEANN DALE ([id number]) 1940 F Date Time Provider Department 01/12/21 [...] Blue Navarro DO REFERRING PROVIDER: Starr Green [address] [facility] [address] ASSESSMENT AND PLAN: Impression: Right Hip Severe [...] Total Joint Arthroplasty (TJA) (more content not included)...[facility] [id number] HEALTHHNO ID: [id number] Author: Abimael Resendiz Service: Radiology Author Type: Pharmacy Sales Assistant Type: Allied Health Filed: 12/28/2020 1:50 PM [...] RELEVANT IMPLANT DATA REVIEWED: Yes RADIOLOGY DEPARTMENT: ; Exam(s) Completed: Lower MSK: Hip, right PERIPHERAL IV DATA: Not applicable SIGNED BY: Abimael Resendiz December 28, 2020 11:47 [facility] [id number] (SPMEFV) SUYAPAROSEANN Aleshia ([id number]) 1940 F Date Time Provider Department 12/28/20 STARR GREEN SPMEFV During your visit today, we recorded the following information about you: Starr Green APRN.OIL AND GAS EXPLORATION TECHNICIAN 12/28/2020 2:29 PM Signed Called patient. Left voicemail. Please advise patient. MRI hip shows advanced hip arthritis with degenerative tearing of the labrum. Recommend Orthopedic consult. Order placed. IzabellaKeoghs Dixonac Operator 12/28/2020 3:02 PM Signed Patient is returning Starr call pertaining to below message, Imaging Results Patient would like to know if Starr could recommend a physician for Ortho call back [phone] Allergies As of Date: 12/28/2020 (No Known Allergies) Date Reviewed: 12/14/2020 Reviewed by: Kelsy Bella Ma - Fully Assessed 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: Results [95] Primary Visit Diagnosis:Primary osteoarthritis of right hip [M16.11] Order(s):CONSULT TO ORTHOPAEDICS [9026] Order #: [id number]: 1 FUTURE Prescriptions as of 12/28/2020 - [...] 11/12/2020 Encounter Status:Closed by BRIANA MOSS on 12/28/20[facility] HIP WO IVCON RTon [id number] HIP WO IVCON RT* * *Final Report* * * DATE OF EXAM: Dec 28 2020 12:02PM [facility] 0207 - MRI HIP WO IVCON RT [...] DEGENERATIVE TEARING OF THE ANTERIOR LATERAL LABRUM Cancer Researcher: ANNA Transcribe Date/Time: Dec 28 2020 2:07P Dictated by : SANTANA MARTÍNEZ MD This examination was interpreted and the report reviewed and electronically signed by: SANTANA MARTÍNEZ MD on Dec 28 2020 2:08PM EST [id number]_IDCSIACNNormalAvSt. Mary Medical Center [id number] Visit (SPMEFV) ROSEANN DALE ([id number]) 1940 F Date Time Provider Department 12/14/20 11:10 AM STARR GREEN SPMEFV During your visit today, we recorded the following information about you: Temperature Pulse Blood pressure Weight 97.4 degrees 66/minute 139/69 68 kg Height 1.6 m Starr Green APRN.OIL AND GAS EXPLORATION TECHNICIAN 12/14/2020 1:07 PM Signed Spine Care Path Low Back Pain - Acute (0 - 6 weeks) Initial Exam SUBJECTIVE HISTORY OF PRESENT ILLNESS: Roseann Dale is a 80 year old female who presents with a chief complaint of low back and leg pain and is seen in consultation requested by SELF Patient comes in today from [facility] Patient presents with back and right leg [...] tired. Physical therapy seeing Sean mendez at [facility] 2 x per week and feels helpful. [...] Topics - Alcohol use: (more content not included)...[facility] HospitalOBSOLETAvenir [facility] [id number] (SPMEFV) ROSEANN DALE ([id number]) 1940 F Date Time Provider Department 11/09/20 [...] days. Encounter Status:Closed by STARR GREEN on 11/09/20[facility] [id number] Visit (SPMEFV) ROSEANN DALE ([id number]) 1940 F Date Time Provider Department 10/26/20 7:00 AM [facility]EN [facility] During your visit today, we recorded the following information about you: Temperature Pulse Blood pressure Weight 96.9 degrees 66/minute 149/81 67.6 kg Height 1.6 m Starr Green APRN.OIL AND GAS EXPLORATION TECHNICIAN 10/26/2020 7:40 AM Signed Spine Care Path Low Back Pain - Acute (0 - 6 weeks) Initial Exam SUBJECTIVE HISTORY OF PRESENT ILLNESS: Roseann Dale is a 80 year old female who presents with a chief complaint of low back and leg pain and is seen in consultation requested by SELF Patient comes in today from [facility] Patient presents with back and right leg [...] transforaminal epidural steroid injection at L34 on [address] Gil. Patient reports 85% improvement in her back and right thigh pain. Biggest complaint now is pain in right groin. Limping with walking. Pain with hip abduction. No numbness tingling. No radicular pain. No notable back pain. Started on low dose gabapentin at last visit. Taking BID. Feels helpful. Physical therapy seeing Sean mendez at [facility] 2 x per week and feels helpful. [...] for 30 days. shellie (more content not included)...[facility] [id number] Office Visit (SPMEFV) ROSEANN DALE ([id number]) 1940 F Date Time Provider Department 09/29/20 8:10 AM STARR GREEN SPMEFV During your visit today, we recorded the following information about you: Temperature Pulse Blood pressure Weight 97.9 degrees 71/minute 148/60 68 kg Height 1.6 m Starr Green APRN.OIL AND GAS EXPLORATION TECHNICIAN 09/29/2020 11:14 AM Signed Spine Care Path Low Back Pain - Acute (0 - 6 weeks) Initial Exam SUBJECTIVE HISTORY OF PRESENT ILLNESS: Roseann Dale is a 80 year old female who presents with a chief complaint of low back and leg pain and is seen in consultation requested by SELF Patient comes in today from [facility] Patient presents with back and right leg [...] chest excursion NEURO/PSYCH: o (more content not included)...NormalHarrington Memorial HospitalXR HIP 3V PELV+ AP/LAT RTon 81-89-7107WS HIP 3V PELV+ AP/LAT RT* * *Final Report* * * DATE OF [...] limits. IMPRESSION: No acute osseous abnormalities identified. Cancer Researcher: PSYCHIATRIC Transcribe Date/Time: Sep 29 2020 10:18A Dictated by : CUONG DWYER MD This examination was interpreted and the report reviewed and electronically signed by: CUONG DWYER MD on Sep 29 2020 10:18AM EST [id number] HospitalXR LUMBAR 4V AP/LAT/ FLEX/EXTon [id number] LUMBAR 4V AP/LAT/ FLEX/EXT* * *Final Report* * * DATE OF [...] facet arthropathy. Mild dextroscoliosis. IMPRESSION: Lumbar spondylosis. Cancer Researcher: [employer] Transcribe Date/Time: Sep 29 2020 4:23P Dictated by : XIOMARA DOYLE MD This examination was interpreted and the report reviewed and electronically signed by: XIOMARA DOYLE MD on Sep 29 2020 4:24PM EST [id number]-MRI L-SPINE WO CON IMPORTon 06-50-6602PR-MRI L-SPINE WO CON IMPORTImages were obtained outside of [facility] [id number] Children's Vital Signs Date TimeVital SignValuePerforming ImgftlkqnPvuinfus13-87-9568 10:09-0400Body afacxh395.94 cmBenjamin Ball DO Work Phone: [facility]09-23-2025 10:09-0400 Body mass index (BMI) [Ratio]27.6 kg/c0Muuvvttb Ball DO Work Phone: 1([phone]09-23-2025 10:09-0400 Body zoneri91.45 kgBenjamin Ball DO Work Phone: 1(890)021-77[facility]09-23-2025 10:09-0400 Diastolic blood yckgzzsu34 mm[Hg]Blue Ball DO Work Phone: 1(977)717-77[facility]09-23-2025 10:09-0400 Heart rate63 /minBenjamin Ball DO Work Phone: 1(823)405-38[facility]09-23-2025 10:09-0400 Respiratory rate12 /minBenjamin Ball DO Work Phone: 1(498)855-77[facility]09-23-2025 10:09-0400 Systolic blood nwrfyxeg420 mm[Hg]Blue Ball DO Work Phone: 1(456)519-11[facility]07-23-2025 11:40-0400 Body insmvv688 cmLucy Degroot MD Work Phone: [facility]07-23-2025 11:40-0400 Body mass index (BMI) [Ratio]25.33 kg/k9XcogzevLucy Degroot MD Work Phone: [facility]07-23-2025 11:40-0400 Body ouinwh91.86 kgLucy Degroot MD Work Phone: [facility]07-23-2025 11:40-0400 Diastolic blood aopwrpjl57 mm[Hg]Lucy Degroot MD Work Phone: [facility]07-23-2025 11:40-0400 Heart rate69 /Pietro Degroot MD Work Phone: [facility]07-23-2025 11:40-0400 Systolic blood ruipbjvv630 mm[Hg]Lucy Degroot MD Work Phone: [facility]03-20-2025 10:08-0400 Body umousy947.94 cmBenjamin Ball DO Work Phone: 1(789)834-[address] [place], [place] 7507003-20-2025 10:08-0400 Body mass index (BMI) [Ratio]27.8 kg/y1Faakwqqo Ball DO Work Phone: 1(397)84[address]03-20-2025 10:08-0400 Body jorrkw14.9 kgBenjamin Ball DO Work Phone: 1(079)315-[address] [place], [place] 7507003-20-2025 10:08-0400 Diastolic blood udyfturs84 mm[Hg]Blue Ball DO Work Phone: 1(193)925-[address] [place], [place] 7507003-20-2025 10:08-0400 Heart rate63 /minBenjamin Ball DO Work Phone: 1(795)251-[address] [place], [place] 7507003-20-2025 10:08-0400 Respiratory rate12 /minBenjamin Ball DO Work Phone: 1(221)642-[address] [place], [place] 7507003-20-2025 10:08-0400 Systolic blood elgioydm951 mm[Hg]Blue Ball DO Work Phone: 1(407)567-[address] [place], [place] 7507009-19-2024 10:07-0400 Body acqmvi436.94 cmK[facility]09-19-2024 10:07-0400Body mass index (BMI) [Ratio]27.1 kg/n4UgwfsgctzKettering Health [facility]09-19-2024 10:07-0400Body iowuki03.03 kgK[facility]tering [facility]09-19-2024 10:07-0400Diastolic blood umnbwbbn29 mm[Hg][facility] 02-22-2024 10:07-0400Heart rate67 /[facility] 02-22-2024 10:07-0400Respiratory rate12 /[facility] 02-22-2024 10:07-0400Systolic blood jdsabwav068 mm[Hg][facility]08-12-2024 13:58-0400Body fokpyw087.94 cmDO Blue Ball Work Phone: 1(588)699-[address] [place], [place] 7507008-12-2024 13:58-0400 Body mass index (BMI) [Ratio]27.1 kg/m2DO Blue Ball Work Phone: 1(114)[address]08-12-2024 13:58-0400 Body mciheu66.03 kgDO Blue Ball Work Phone: 1(799)[address]08-12-2024 13:58-0400 Diastolic blood ajttwtbm11 mm[Hg]DO Blue Ball Work Phone: 1(622)09138 [address]08-12-2024 13:58-0400 Heart rate71 /minDO Blue Ball Work Phone: 1(119)205-[address] [place], [place] 7507008-12-2024 13:58-0400 Respiratory rate12 /minDO Blue Ball Work Phone: 1(869)685-[address] [place], [place] 7507008-12-2024 13:58-0400 Systolic blood kydikuhq988 mm[Hg]DO Blue Ball Work Phone: 1(439)765-[address] [place], [place] 7507007-02-2024 10:36-0400 Body hdllip804.94 cmDO Blue Ball Work Phone: 1(309)332-[address] [place], [place] 7507007-02-2024 10:36-0400 Body mass index (BMI) [Ratio]25.7 kg/m2DO Blue Ball Work Phone: [phone]07-02-2024 10:36-0400 Body .77 kgDO Blue Ball Work Phone: 1(379)477-[address] [place], [place] 7507007-02-2024 10:36-0400 Diastolic blood uityyufv17 mm[Hg]DO Blue Ball Work Phone: [facility]07-02-2024 10:36-0400 Heart rate76 /minDO Blue Ball Work Phone: [facility]07-02-2024 10:36-0400 Respiratory rate12 /minDO Blue Ball Work Phone: [facility]07-02-2024 10:36-0400 Systolic blood mm[Hg]DO Blue Ball Work Phone: 1([phone])242-36[facility]07-02-2024 10:36-0400 Systolic blood bvexqrfq910 mm[Hg]DO Blue Ball Work Phone: 1(729)332-33[facility]06-25-2024 08:59-0400 Body bkapgb981 cmJe Ruiz MD Work Phone: 1(339)976-[address] [place], [place] 4995906-25-2024 08:59-0400 Body mass index (BMI) [Ratio]25.15 kg/n6ZioaysmJe Ruiz MD Work Phone: 1(329)181-[address] [place], [place] 4995906-25-2024 08:59-0400 Body unsbpw70.41 kgJe Ruiz MD Work Phone: 1(186)499-[address] [place], [place] 4995906-25-2024 08:59-0400 Diastolic blood gimefrpg08 mm[Hg]Je Ruiz MD Work Phone: 1(054)[address] [place], [place] 4995906-25-2024 08:59-0400 Heart rate68 /minJe Ruiz MD Work Phone: 1(591)491-[address] [place], [place] 4995906-25-2024 08:59-0400 Systolic blood mm[Hg]Je Ruiz MD Work Phone: 1(209)305-[address] [place], [place] 4995906-12-2024 13:59-0400 Body etynxp564.94 cmDO Blue Ball Work Phone: 1(670)[phone]06-12-2024 13:59-0400 Body mass index (BMI) [Ratio]25.7 kg/m2DO Blue Ball Work Phone: 1(426)591-22[facility]06-12-2024 13:59-0400 Body .68 kgDO Blue Ball Work Phone: 1(953)480-31[facility]06-12-2024 13:59-0400 Diastolic blood ouaptaew84 mm[Hg]DO Blue Ball Work Phone: 1(134)96238 [address]06-12-2024 13:59-0400 Heart rate70 /minDO Blue Ball Work Phone: 1(300)[address]06-12-2024 13:59-0400 Respiratory rate12 /minDO Blue Ball Work Phone: 1(176)229-[address] [place], [place] 7507006-12-2024 13:59-0400 Systolic blood zyaagxmk075 mm[Hg]DO Blue Ball Work Phone: 1(217)19038 [address]03-19-2024 10:21-0400 Body affkvk406.94 cmDO Blue Ball Work Phone: 1(933)[address]03-19-2024 10:21-0400 Body mass index (BMI) [Ratio]25.7 kg/m2DO Blue Ball Work Phone: 1(515)764-[address] [place], [place] 7507003-19-2024 10:21-0400 Body dratbl55.85 kgDO Blue Ball Work Phone: 1(078)556-[address] [place], [place] 7507003-19-2024 10:21-0400 Diastolic blood napwjofk92 mm[Hg]DO Blue Ball Work Phone: 1(047)288-[address] [place], [place] 7507003-19-2024 10:21-0400 Heart rate65 /minDO Blue Ball Work Phone: 1(864)464-[address] [place], [place] 7507003-19-2024 10:21-0400 Respiratory rate12 /minDO Blue Ball Work Phone: 1(786)283-[address] [place], [place] 7507003-19-2024 10:21-0400 Systolic blood naojxfxw068 mm[Hg]DO Blue Ball Work Phone: [facility]11-27-2023 08:38-0500 Diastolic blood awoqidwj36 mm[Hg]Mraissa Caldera OPTIMIZATION MANAGER-OIL AND GAS EXPLORATION TECHNICIAN Work Phone: [facility]11-27-2023 08:38-0500 Systolic blood jrdyhqqe943 mm[Hg]Marissa Caldera OPTIMIZATION MANAGER-OIL AND GAS EXPLORATION TECHNICIAN Work Phone: [facility]11-27-2023 08:27-0500 Body cmMarissa Caldera OPTIMIZATION MANAGER-OIL AND GAS EXPLORATION TECHNICIAN Work Phone: [facility]11-27-2023 08:27-0500 Body mass index (BMI) [Ratio]24.45 kg/m1NslafMarissa Caldera OPTIMIZATION MANAGER-OIL AND GAS EXPLORATION TECHNICIAN Work Phone: [facility]11-27-2023 08:27-0500 Body .6 kgMarissa Caldera OPTIMIZATION MANAGER-OIL AND GAS EXPLORATION TECHNICIAN Work Phone: [facility]11-27-2023 08:27-0500 Heart rate62 /minDsabi Caldera OPTIMIZATION MANAGER-OIL AND GAS EXPLORATION TECHNICIAN Work Phone: [facility]10-17-2023 09:30-0400 Body .94 cmBenjamin Ball Other [employer] Other [phone] 09:30-0400Body mass index (BMI) [Ratio] 25.77 kg/f6Aadnivmc Ball Other [employer] Other 10-17-2023 09:30-0400Body iftqxv10.87 kgBenjamin Ball Other [employer] Other 10-17-2023 09:30-0400Diastolic blood jghhqyjk61 mm[Hg] Blue Ball Other [employer] Other [id number] 09:30-0400Respiratory rate12 /minBenjamin Ball Other [facility] [employer] Other 10-17-2023 09:30-0400Systolic blood mm[Hg] Blue Ball [facility] Other 07-13-2023 09:30-0400Body twwkya148.94 cmBenjamin Ball Other [facility] [employer] Other 07-13-2023 09:30-0400Body mass index (BMI) [Ratio]26.6 kg/c5Ycoprgnt Ball Other [facility] Other 07-13-2023 09:30-0400Body vmhybq73.87 kgBenjamin Ball Other [facility] Other 07-13-2023 09:30-0400Diastolic blood mwptiopf41 mm[Hg] Blue Ball Other [facility] [employer] Other 07-13-2023 09:30-0400Respiratory rate12 /minBenjamin Ball Other [facility] [employer] Other 07-13-2023 09:30-0400Systolic blood uzckasvf537 mm[Hg] Blue Ball Other [facility] [employer] Other 06-05-2023 10:45-0400Body onnbyk964.02 cmBenjamin E Ball Work Phone: [phone]-Nkodi [place] [employer] [address] DO Work Phone: 1(153) 717-543206-05-2023 10:45-0400Body mass index (BMI) [Ratio] 25.15 kg/f9Gmpeojuq E Ball Work Phone: [phone]-Ztest [place] [employer] [address] DO Work Phone: 1(375) 127-205706-05-2023 10:45-0400Body surface area Derived from formula1.67 k9Gickfwau E Ball Work Phone: [phone]-PkjetAppleton [facility] Hospital 250 DO Work Phone: 1(803) 149-851606-05-2023 10:45-0400Body cwxikm53.41 kgBenjamin E Ball Work Phone: mp897-6608EP-LwdyxAppleton Municipal Hospital 250 DO Work Phone: 1(729) 632-189206-05-2023 10:45-0400Diastolic blood mpiifesn44 mm[Hg] Blue E Ball Work Phone: [phone]-XhiyuAppleton Municipal Hospital 250 DO Work Phone: 1(819) 365-320206-05-2023 10:45-0400Heart rate64 /minBenjamin E Ball Work Phone: mp863-6837QQ-NawmzAppleton Municipal Hospital 250 DO Work Phone: 1(617) 969-323106-05-2023 10:45-0400Systolic blood abnylfte325 mm[Hg] Blue E Ball Work Phone: mp259-3078ME-TatunAppleton Municipal Hospital 250 DO Work Phone: 1(947) 552-310004-13-2023 11:00-0400Body .94 cmBenjamin Ball Other [employer] Other 04-13-2023 11:00-0400Body mass index (BMI) [Ratio] 27.28 kg/t1Jtjcvihg Ball Other [facility] Other 04-13-2023 11:00-0400Body euoath13.5 kgBenjamin Ball Other [employer] Other 04-13-2023 11:00-0400Diastolic blood klcxwygn62 mm[Hg] Blue Ball Other [employer] Other 04-13-2023 11:00-0400Respiratory rate12 /minBenjamin Ball Other [employer] Other 04-13-2023 11:00-0400Systolic blood gxefwfkn004 mm[Hg] Blue Ball Other [employer] Other 03-24-2023 16:00-0400Body aqgjik932.94 cmBenjamin Ball Other [employer] Other 03-24-2023 16:00-0400Body mass index (BMI) [Ratio] 27.28 kg/x9Ilejlgbo Ball Other [employer] Other 03-24-2023 16:00-0400Body btadtw80.5 kgBenjamin Ball Other [employer] Other 03-24-2023 16:00-0400Diastolic blood jmsevnxz15 mm[Hg] Blue Ball Other [employer] Other 03-24-2023 16:00-0400Respiratory rate12 /minBenjamin Ball Other [employer] Other 03-24-2023 16:00-0400Systolic blood hbvyjkbh962 mm[Hg] Blue Ball Other [employer] Other 03-22-2023 10:00-0400Body iibpzo643.94 cmBenjamin Ball Other [employer] Other 03-22-2023 10:00-0400Body mass index (BMI) [Ratio] 26.87 kg/u8Qavdlpqu Ball Other [place] [employer] Other 03-22-2023 10:00-0400Body .5 kgBenjamin Ball Other [facility] [employer] Other 03-22-2023 10:00-0400Diastolic blood rcgtpsul73 mm[Hg] Blue Ball Other [facility] [employer] Other 03-22-2023 10:00-0400Respiratory rate12 /minBenjamin Ball Other [facility] [employer] Other 03-22-2023 10:00-0400Systolic blood wucrnefw779 mm[Hg] Blue Ball Other [facility] [employer] Other 03-20-2023 11:38-0400Body .02 cmBenjamin E Ball Work Phone: 1(741) [phone]-Avulj [place] [employer] [address] DO Work Phone: 1(869) 701-638803-20-2023 11:38-0400Body mass index (BMI) [Ratio]24.8 kg/i5Gxnsxmbu E Ball Work Phone: 1(986) 945-2433358-3576JB-Wlfpf [place] [employer] 250 DO Work Phone: 1(217) 551-283803-20-2023 11:38-0400Body surface area Derived from formula1.66 z8Jbacezan E Ball Work Phone: 1(111) 279-1698985-7301EQ-Vocya [place] [employer] 250 DO Work Phone: 1(780) 357-518603-20-2023 11:38-0400Body tmjooz64.5 kgBenjamin E Ball Work Phone: 1(728) 685-1967432-8796QA-Tpntb [place] [employer] [address] DO Work Phone: 1(455) 110-167203-20-2023 11:38-0400Diastolic blood xzccdixa87 mm[Hg] Blue E Ball Work Phone: 1(773) 788-8376215-4582HA-Dykky [place] [facility] DO Work Phone: 1(914) 927-549903-20-2023 11:38-0400Heart rate74 /minBenjamin E Ball Work Phone: mp953-6332CT-Zmmum [place] [facility] 250 DO Work Phone: 1(185) 262-666003-20-2023 11:38-0400Systolic blood mm[Hg] Blue E Ball Work Phone: mp685-6199OK-Pzfgv [place] [facility] 250 DO Work Phone: 1(425) 603-428203-14-2023 10:30-0400Body beltsv523.94 cmBenjamin Ball Other [employer] Other 03-14-2023 10:30-0400Body mass index (BMI) [Ratio] 26.98 kg/x9Akbsslvd Ball Other [employer] Other 03-14-2023 10:30-0400Body .77 kgBenjamin Ball Other [employer] Other 03-14-2023 10:30-0400Diastolic blood cqdnitzj30 mm[Hg] Blue Ball Other [employer] Other 03-14-2023 10:30-0400Respiratory rate12 /minBenjamin Ball Other [employer] Other 03-14-2023 10:30-0400Systolic blood jljafclg668 mm[Hg] Blue Ball Other [employer] Other 02-13-2023 12:30-0500Body sqlkak649.94 cmBenjamin Ball Other [employer] Other 02-13-2023 12:30-0500Body mass index (BMI) [Ratio] 27.21 kg/l8Asxvhrsn Ball Other [facility] [employer] Other 02-13-2023 12:30-0500Body aftfta34.32 kgBenjamin Ball Other [facility] Other 02-13-2023 12:30-0500Diastolic blood lvrryjao10 mm[Hg] Blue Ball Other [facility] Other 02-13-2023 12:30-0500Respiratory rate12 /minBenjamin Ball Other [facility] Other 02-13-2023 12:30-0500Systolic blood yobxlkzg555 mm[Hg] Blue Ball Other [facility] [employer] Other 12-09-2022 15:59-0500Body oogvtsssucg05.3 [degF] Blue E Ball Work Phone: 1(872) [phone]-Gtxml [place] [employer] 250 DO Work Phone: 1(647) 618-673112-09-2022 15:59-0500Body azqwbl53.41 kgBenjamin E Ball Work Phone: 1(196) 309-5775952-2241WL-Utehj [place] [employer] 250 DO Work Phone: 1(755) 150-661712-09-2022 15:59-0500Diastolic blood zcvitezk41 mm[Hg] Blue E Ball Work Phone: 1(459) 455-9234169-7119YL-Pefsb [place] [employer] 250 DO Work Phone: 1(561) 953-762912-09-2022 15:59-0500Heart rate62 /minBenjamin E Ball Work Phone: 1(519) 173-2954646-0883TF-Isfis [place] [employer] 250 DO Work Phone: 1(182) 835-779112-09-2022 15:59-0500Systolic blood lzjjibks516 mm[Hg] Blue E Ball Work Phone: KX-Ekzhq [place] [facility] 250 DO Work Phone: 1(849)386-996-598579-72307082-97-2387 08:05-0500Body xvtrudolagi81 [degF]DO Blue Ball Work Phone: 1(770)134[address]12-09-2022 08:05-0500 Diastolic blood mm[Hg]DO Blue Ball Work Phone: 1(361)30438 [address]12-09-2022 08:05-0500 Heart rate76 /minDO Blue Ball Work Phone: 1(442)589-[address] [place], [place] 7507012-09-2022 08:05-0500 Respiratory rate12 /minDO Blue Ball Work Phone: 1(121)[address]12-09-2022 08:05-0500 SaO2% (BldA) [Mass fraction]95 %DO Blue Ball Work Phone: 1(458)[address]12-09-2022 08:05-0500 Systolic blood hujhedfg895 mm[Hg]DO Blue Ball Work Phone: 1(071)[address]12-09-2022 06:16-0500 Body tihfej61 kgDO Blue Ball Work Phone: 1(893)34738 [address]12-09-2022 04:13-0500 Inhaled oxygen flow rate2 L/minDO Blue Ball Work Phone: 1(942)61238 [address]12-08-2022 13:08-0500 Inhaled oxygen flow rate2 L/minDO Blue Ball Work Phone: 1(401)63738 [address]12-08-2022 13:04-0500 Diastolic blood idggwaon36 mm[Hg]DO Blue Ball Work Phone: 1(243)51138 [address]12-08-2022 13:04-0500 Heart rate80 /minDO Blue Ball Work Phone: 1(801)19538 [address]12-08-2022 13:04-0500 Respiratory rate18 /minDO Blue Ball Work Phone: 1(572)649-[address] [place], [place] 7507012-08-2022 13:04-0500 SaO2% (BldA) [Mass fraction]96 %DO Blue Ball Work Phone: 1(773)[address] [place], [place] 4995812-08-2022 13:04-0500 Systolic blood evqgqwim675 mm[Hg]DO [employer] Work Phone: 1(826)[address] [place], [place] 4995812-08-2022 06:36-0500 Body ztrimr822.48 cmDO [employer] Work Phone: [phone] [place], [place] 4995812-08-2022 06:36-0500 Body uhtnxfkgvpa79.8 [degF]DO [employer] Work Phone: 1(203)[address] [place], [place] 4995812-08-2022 06:36-0500 Body ybhfoi95 kgDO [employer] Work Phone: 1([phone])[address] [place], [place] 4995812-05-2022 12:00-0500 Body ofsikmcyeeg63 [degF]DO Blue Ball Work Phone: [phone] [place], [place] 4995812-05-2022 12:00-0500 Diastolic blood hvxspfut95 mm[Hg]DO Blue Ball Work Phone: [phone])[address] [place], [place] 4995812-05-2022 12:00-0500 Heart rate84 /minDO Blue Ball Work Phone: [phone])[address] [place], [place] 4995812-05-2022 12:00-0500 Inhaled oxygen flow rate2 L/minDO Blue Ball Work Phone: [phone])[address] [place], [place] 4995812-05-2022 12:00-0500 Respiratory rate18 /minDO Blue Ball Work Phone: [phone] [place], [place] 7507012-05-2022 12:00-0500 SaO2% (BldA) [Mass fraction]95 %DO Blue Ball Work Phone: [phone])[address] [place], [place] 4995812-05-2022 12:00-0500 Systolic blood kiqegrmq334 mm[Hg]DO Blue Ball Work Phone: 1(717)[address] [place], [place] 4995812-05-2022 05:23-0500 Body daceoa65.9 kgDO Blue Ball Work Phone: [phone])[address] [place], [place] 4995812-04-2022 13:23-0500 Body bectuu444.02 cmDO Blue Navarro Work Phone: [facility]12-03-2022 15:53-0500 40 Mahin Ruiz MD Work Phone: [phone]-Maitl [facility] 250 DO Work Phone: Comment on above:[id number] 16:35-0500Body mass index (BMI) [Ratio]30.2 kg/m2DO Blue Navarro Work Phone: [facility] Encounters Encounter DateEncounter TypeCare ProviderFacilityStart: 03-28-2025 End: 58-92-4597clbydktigvAevaszfz BallFacility:[facility] Start: 78-52-7081Cbh-patient / Non-visitM.J Luis Bradley-Heart Rhythm ClinicStart: 02-25-2025 End: 03-27-2347heqsvkwfzkVignsuqc Melanie DO Work Phone: [facility] Work Phone: Start: 02-25-2025 End: 69-39-0956Dlhjrsf encounter procedureBelucas Melanie DO-[facility] Work Phone: Start: 12-30-2024 End: 43-37-9767Dhsrhnz encounter procedureLucy Degroot MD-Pacemaker CheckStart: 12-30-2024 End: 84-20-1595ozrhkswdjsDxdwbchs Melanie DO Work Phone: [facility] Work Phone: Start: 03-99-9940Kye-patient / Non-visitM.J Luis Bradley-Heart Rhythm ClinicStart: 12-25-2024 End: 47-53-6686dmlwjwjzpyEUUAEZV TRABBaylor Scott [facility] AmbulatoryStart: 12-25-2024 End: 59-36-8943Bdqidj outpatient visit 25 minutesMobeth Degroot MD Work Phone: [facility] CenterComment on above:Complete heart block (Primary Dx); Essential hypertension, benign; Stress-induced cardiomyopathy; Mixed hyperlipidemia; Mild CAD; Cardiac pacemaker; BMI 25.0-25.9,adult; Lower extremity edemaStart: 11-06-2024 End: 93-19-5779gdehcufpblOmnqcjdeaFisher-[facility] Work Phone: Start: 11-06-2024 End: 10-76-2522Jtjlruj encounter procedureAt[facility] GroupB[facility] Work Phone: Start: 64-90-0963Kaf-patient / Non-visitAt[facility] Work Phone: Start: 08-22-2024 End: 59-34-0329wibgmflhpqJxorrcik Ball DO Work Phone: [facility] Work Phone: Start: 08-22-2024 End: 32-79-9349Ceutgfr encounter procedureBenjamin Ball DO Work Phone: [facility] GroupB[facility] Work Phone: Start: 07-22-2024 End: 03-93-3312Cdzpqvd encounter procedureBenjamin Ball DO Work Phone: [facility]-Pacemaker CheckStart: 07-22-2024 End: 88-72-8825xqbifphkdmQlefwoqk Ball DO Work Phone: [facility] Work Phone: Start: 88-11-1392Waq-patient / Non-visitBenjamin Ball DO Work Phone: [facility]-Heart Rhythm ClinicStart: 04-22-2024 End: 91-40-1936imtpwgulybQwzgabqt BallFacility:[facility] Start: 78-85-7117Nwu-patient / Non-visitAt[facility]-Heart Rhythm ClinicStart: 02-22-2024 End: 83-26-8338orbbprbcqnWupbazapa Regional Med Center Work Phone: Start: 02-22-2024 End: 61-59-1764Drsehbu encounter procedureAt[facility] Work Phone: Start: 01-22-2024 End: 51-20-7059kpwpkmybkkGE Blue CiiNOW Work Phone: [facility] Work Phone: Start: 01-22-2024 End: 92-97-3791Ptsjynq encounter procedureDO Blue Navarro Work Phone: [facility]-Pacemaker CheckStart: 21-06-3788Utd-patient / Non-visitAt[facility] Start: 01-15-2024 End: 95-54-2727dnzmmsjskgYW Blue CiiNOW Work Phone: [facility] Work Phone: Start: 01-15-2024 End: 84-99-9606Tdifoqp encounter procedureDO Blue CiiNOW Work Phone: [facility] Work Phone: Start: 12-05-2023 End: 84-47-5745mgvewzbpxmSJ Blue [facility] Work Phone: [facility] Work Phone: Start: 12-05-2023 End: 84-16-2763Ktphskh encounter procedureDO Blue Navarro Work Phone: [facility] Work Phone: Start: 11-28-2023 End: 76-69-6697Gvlzud outpatient visit 25 minutesJe Ruiz MD Work Phone: uh [facility] on above:Mixed hyperlipidemia (Primary Dx); Essential hypertension, benign; Cardiac pacemaker; BMI 25.0-25.9,adultStart: 11-15-2023 End: 20-27-4563pdtudtuatjYZ Blue Navarro Work Phone: [facility] Work Phone: Start: 11-15-2023 End: 01-01-1353Gvtsndp encounter procedureDO Blue Navarro Work Phone: [facility] Work Phone: Start: 10-23-2023 End: 04-25-1016rwpbejizbpQP Blue Navarro Work Phone: [facility] Work Phone: Start: 10-23-2023 End: 32-28-0348Vitukto encounter procedureDO Blue Navarro Work Phone: [facility]-Pacemaker CheckStart: 43-87-0891Hih-patient / Non-visitDO Blue Navarro Work Phone: [facility] Work Phone: Start: 08-22-2023 End: 75-41-1935clttbabkisAU Blue Navarro Work Phone: [facility] Work Phone: Start: 08-22-2023 End: 31-22-0189Bsrwhgl encounter procedureDO Blue Navarro Work Phone: [facility] Work Phone: Start: 07-21-2023 End: 10-42-5525ykyxcqkoxmJG Blue Navarro Work Phone: [facility] Work Phone: Start: 07-21-2023 End: 57-86-9760Hpmjgld encounter procedureDO Blue Navarro Work Phone: [facility]-Pacemaker CheckStart: 07-03-2023 End: 00-38-8775faucrlnrnaHhcxtxvl Melanie Other [employer] [employer] Other Start: 41-28-0001Gpuzyygjj encounterBenjamin BallFPG [facility] Medical ClinicStart: 06-30-2023 End: 02-91-3283lrhrkfuaocFaldyfgu Ball Other no[employer]Search [employer] Other Start: 70-85-1509Xyxgnyxch encounterBenphyllis Navarro Medical ClinicStart: 05-01-2023 End: 60-54-0600Chqmhb outpatient visit 15 minutesMarissa Caldera OPTIMIZATION MANAGER-OIL AND GAS EXPLORATION TECHNICIAN Work Phone: uh [facility] on above:Essential hypertension, benign (Primary Dx); Mild CAD; Mixed hyperlipidemia; Stress-induced cardiomyopathy; Cardiac pacemaker; BMI 24.0-24.9, adultStart: 04-21-2023 End: 06-63-1235tgcxdsszycOA Blue Navarro Work Phone: [facility] Work Phone: Start: 04-21-2023 End: 69-20-1893Rnduvhv encounter procedureDO Blue Navarro Work Phone: [facility]-Pacemaker CheckStart: 03-29-2023 End: 36-47-2746vdglwsxwzaHitwkqri Ball Other [employer] Other Start: 33-67-0457Hxbkiclth encounterBenphyllis Navarro Medical ClinicStart: 03-21-2023 End: 71-08-3284oibtrtjuwaAuwhqcnn Ball Other [employer] Other Start: 02-69-0162Rvjvvm outpatient visit 25 minutes Blue [facility] ClinicStart: 62-05-1942Gcdxbkusx encounterBendukemin BallJOHNG [facility] ClinicStart: 01-20-2023 End: 12-12-4554ugalczbxzoUgVincent NavarroAddSearch [employer] Other Start: 12-19-2022 End: 07-42-1985lkxhherpkmCnnvdzvx Ball Other [employer] Other Start: 43-45-3417Nwfzyiwxr encounterBenjamin BallFPG [facility] ClinicStart: 12-15-2022 End: 82-74-1622wdldzgpxlpQyzljjec Ball Other [facility] [employer] Other Start: 36-64-1381Kbxpiu outpatient visit 25 minutes Blue BallFPG [facility] Medical ClinicStart: 59-63-5542Yjrhkc outpatient visit 15 minutesBenjamin E Ball Work Phone: [phone]-YbgvyHennepin [facility] 250 DO Work Phone: Start: 59-65-1186kidxaviyeeQk. Blue Navarro Facility:[id number]: 12-04-6784dhontkqcirOt. Blue NavarroFacility:9090 Start: 95-13-1117Vavfq UpdateBenjamin E Ball Work Phone: [phone]-XduxxHennepin County Medical Center 250 DO Work Phone: Start: 09-26-2022 End: 80-34-1637gkrqgpkxldVptx Asaad Other [employer] Other Start: 68-66-8176Hnekbefvb encounterImad AsaadFPG Referral CoordinatorStart: 09-15-2022 End: 11-98-3797umorovjznaVfmxveyk Ball Other [facility] [employer] Other Start: 51-69-2020Jtwpxh outpatient visit 15 minutes Blue BallJOHNG [facility] ClinicStart: 09-05-2022 End: 65-75-2986vtgplmygvqFjtzncls Ball Other [facility] [employer] Other Start: 33-76-7702Kbixlyrbh encounterBenjamin BallFPG [facility] ClinicStart: 08-31-2022 End: 18-85-2432vwtgkmbgswKnjmqpcc Ball Other [employer]Search [employer] Other Start: 45-73-0192Ostlvjjbt encounterBenjakaylee Navarro Medical ClinicStart: 23-87-2820Gx RenewalBenjamin E Ball Work Phone: [phone]-Tyilk [facility] 250 DO Work Phone: Start: 52-79-7112Dynul UpdateBenjamin E Ball Work Phone: [phone]-Zszwc [facility] 250 DO Work Phone: Start: 46-69-4487Qjcylntha encounterBenphyllis Navarro Medical ClinicStart: 08-29-2022 End: 90-67-3762vhmyiwfeuhJP Blue Ball Work Phone: [facility] Work Phone: Start: 08-29-2022 End: 48-24-8974Tujxkpn encounter procedureDO Blue Navarro Work Phone: [facility]-XRay [facility] Mandan Work Phone: Start: 08-26-2022 End: 44-91-4969mudlylkmjuLJ BLUE NAVARROSilverstreet [employer] Other Start: 37-66-9960Jqmzhd outpatient visit 25 minutes Blue [facility]arro Medical ClinicStart: 08-24-2022 End: 52-40-4193vympqpkapkWorcrqzd Ball Other [facility] [employer] Other Start: 87-83-8123Ssxfayj encounter procedureBenphyllis GoldG [facility] ClinicStart: 75-20-5049Dldztu outpatient visit 25 minutes Blue Rupa Ball Work Phone: [phone]-Qkbnc [facility] 250 DO Work Phone: Start: 85-84-7256Huetmip encounter procedureBenjamin E Ball Work Phone: [phone]-Oyumb [facility] 250 DO Work Phone: Start: 74-88-4742gauwsvtlntFb. Blue Navarro Facility:[id number]: 08-16-2022 End: 55-66-6453aqjpqgnllbBybhfvnl Ball Other [facility] [employer] Other Start: 06-92-2571Uiuxla outpatient visit 25 minutes Blue [facility] ClinicStart: 08-11-2022 End: 63-00-9207ajkbogjkrrUhtdqklf Ball Other [facility] [employer] Other Start: 56-68-6029Zcqdxmecz encounterBenjakaylee Navarro Medical ClinicStart: 37-28-1911xjqvxeohmrFa. Blue Navarro Facility:90art: 07-19-2022 End: 98-75-7337owztnzkuwhLG Blue Navarro Work Phone: [facility] Work Phone: Start: 07-19-2022 End: 89-05-7218Cwtrcpx encounter procedureDO Blue Navarro Work Phone: [facility]-Pacemaker CheckStart: 07-18-2022 End: 06-92-4771julnlbuqthZmiyxlfi Ball Other [facility] [employer] Other Start: 63-01-3780Uwvvsx outpatient visit 15 minutes Blue [facility] ClinicStart: 07-11-2022 End: 10-32-8632ktgxdewdxmQvufxhrb Ball Other [facility] [employer] Other Start: 46-07-4629Itmpnuaka encounterBenphyllis Navarro Medical ClinicStart: 68-85-7043Ud RenewalBenjamin E Ball Work Phone: [phone]-Bnojs [facility] 250 DO Work Phone: Start: 66-64-4812Ww RenewalBenjamin Rupa Ball Work Phone: [phone]-Mtgxe [facility] 600 DO Work Phone: Start: 52-92-3068dnqvzcbpqxAw. Je Ruiz IIFacility:[address]Dlewo: 53-68-0136Gfcvqz follow up visit related to original px Blue Goode Ball Work Phone: [phone]-Qvfae [facility] 250 DO Work Phone: Start: 05-12-2022 End: 22-97-2794Ghvldfsrlv and management of inpatientDO Blue Navarro Work Phone: [facility]-3 [facility] SurgStart: 91-37-4153lsdosqghszYi. Je DaleyFacility:9090Start: 05-07-[address] Je DaleyFacility:9090Start: 57-81-0124cprximcbsxZf. Je DaleyFacility:9090Start: 27-45-8948Ivqsowtet encounterJe Ruiz MD Work Phone: [phone]-GhdajHennepin County Medical [facility] 250 DO Work Phone: Start: 76-90-7409fxeczawcchXf. Je Daley Facility:9090Start: 05-05-2022 End: 36-63-2117Clyncmgltw and management of inpatientDO Blue Navarro Work Phone: [facility]-3 [facility] SurgStart: 05-05-2022 End: 46-46-6511tkowbaaribSS BLUE NAVARROFacility:M0Arfeb: 01-11-2022 End: 55-33-3101Eckywlf encounter Yesica Lomeli MD Work Phone: orthopedicsComment on above:Right hip pain (Primary Dx)Start: 01-11-2022 End: 14-39-4432Itbwujllkr hospital visit by physicianTiffanie [facility] Work Phone: RadiologyComment on above:History of total hip arthroplasty, right [Z96.641]Start: 81-46-3106Wndfwu Chantel Lomeli MD Work Phone: orthopaedicsComment on above: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)Start: 07-27-2021 End: 41-05-6294Kwmqwwnyvr hospital visit by physicianXr [employer] Work Phone: RadiologyComment on above:Pain [R52]Start: 05-12-2021 Adult health examinationBenTaggstar Other [facility] [employer] Other Start: 04-27-2021 End: 14-95-3143Xiaukppigh hospital visit by physicianXr [employer] Work Phone: RadiologyComment on above:Status post revision of total hip replacement [Z96.649]Start: 12-08-2020 End: 04-93-7815Frdtyeuahm RecurringDO Blue CiiNOW Work Phone: [facility]-Physical Therapy [facility] Procedures DateProcedureProcedure DetailPerforming ClinicianStart: 56-32-7815Qwg routine ecg w/least 12 lds w/i&Steven Degroot MD Work Phone: Start: 72-40-7367XsxjwlctdlseuribDruzrrbf E [facility] Work Phone: Start: 74-57-7590Enfsr chest X-rayDO [employer] Work Phone: Start: 19-54-3690RLFP-CoV-2, Influenza & RSV (PCR)DO Blue CiiNOW Work Phone: Start: 24-50-3557Zkfvj chest X-rayDO [employer] Work Phone: Start: 87-62-6529Bvhtz chest X-rayDO [employer] Work Phone: Start: 04-21-3492Gljdn chest X-rayDO [employer] Work Phone: Start: 97-56-9579Vfpquqsbdotn of cardiac pacemakerDO Blue Navarro Work Phone: Start: 36-72-6356Mbtzc chest X-rayDO Blue Navarro Work Phone: Start: 03-12-3352NO Closure Device Placement 0DO Blue Navarro Work Phone: Start: 53-05-3213XZ Insert Temp PacerDO Blue Navarro Work Phone: Start: 53-19-0147XF LHC & COR Angio (Right)DO Blue Navarro Work Phone: Start: 32-41-8174WS Transcutaneous Pacing (Right)DO Blue Navarro Work Phone: Start: 02-54-5310Mlesz hip unilateral with pelvis 2-3 viewsRoss Vj PA-C Work Phone: Start: 95-14-6101Bgxtb hip unilateral with pelvis 2-3 viewsAlo Lomeli MD Work Phone: start: 98-18-4899Ovako hip unilateral with pelvis 2-3 viewsAlo Lomeli MD Work Phone: start: 22-05-5054Vpyboqbf screenComment on above: Performed By: #### [id number] #### [facility] [address] [place] [address] Aomsd: 21-91-2251Fugdzlefe for osteoporosisBenjamin Ball Other Start: 37-81-6997Dypzacdce mammographyBenjamin Ball Other Start: 19-48-8941Ltkwblb examination of patient Blue Navarro Other AppendectomyBenjamin E Ball Work Phone: Cataract surgeryBenjamin E Ball Work Phone: ColonoscopyBenjamin E Ball Work Phone: Depression screeningBenjamin Ball Other Excision of neoplasmBenjamin E Ball Work Phone: Excision of thymusBenjamin E Ball Work Phone: Screening for malignant neoplasm of breastBenjamin Ball Other Total replacement of hipBenjamin E Ball Work Phone: Plan of Treatment DateCare ActivityDetailAuthorStart: 12-25-2025 End: 93-24-1914Fzzrnwj encounter ndbpkuotk91/23/2026 10:10 AM EDT Office Visit [address] [place] [address] Lucy Degroot MD [address] [facility] [address], [address] [place] [address] [facility]: 92-05-6856Louumfkzv vaccinationInfluenza Vaccine (#1)[facility]: 12-02-2024 End: 10-68-6355Iceihpx encounter cnhwjuqcu66/30/2025 9:30 AM EDT Office Visit [place] [address] [facility] [address] [place] [address] Lucy Degroot MD [address] [facility] [address], [address] [place] [address] [facility]: 27-97-7675SWHDMZLF SCREENDIABETES SCREEN [facility]: 44-26-4341Lytxwgcd ScreeningDiabetes ScreeningGrand Lake Joint Township District Memorial Hospitaltart: 61-29-1088PHNPU-19 Vaccine ( season)COVID-19 Vaccine ( season)[facility]: 18-18-2956Miljb-19 Vaccine ( season)Covid-19 Vaccine ( season)[facility]: 65-62-6939Tckojhytl vaccinationInfluenza Vaccine (#1)[facility]: 61-00-1301Bhrelec referralProtestant Deaconess Hospital Work Phone: Start: 60-85-6477ZrmbrscgjdzioysoRypmdwyndajbvu [facility]onStart: 05-37-0987Bruosdy Directive Discussion Advance Directive DiscussionGrand Lake Joint Township District Memorial Hospitaltart: 05-16-2023 End: 22-65-5128Yrzfhss encounter zpycyqfpe90/12/2023 2:30 PM EST Office Visit [address] [place] [address] Marissa Caldera, OPTIMIZATION MANAGER-OIL AND GAS EXPLORATION TECHNICIAN [address] [place] [address] [facility]: 05-01-2023 End: 51-14-9872Iclwgtb aminotransferase [Enzymatic activity/volume] in Serum or Plasma by With P-5'-PAlanine Aminotransferase Lab Routine Mild CAD Mixed hyperlipidemia Expected: 05/01/2023 (Approximate), Expires: 05/01/2024[facility] Area Work Phone: Comment on above:Expected: 05/01/2023 (Approximate), Expires: 05/01/2024Start: 05-01-2023 End: 16-12-5026Jqexxmsuu aminotransferase [Enzymatic activity/volume] in Serum or Plasma by With P-5'-PAspartate Aminotransferase Lab Routine Mild CAD Mixed hyperlipidemia Expected: 05/01/2023 (Approximate), Expires: 05/01/2024[facility] Work Phone: Comment on above:Expected: 05/01/2023 (Approximate), Expires: 05/01/2024Start: 05-01-2023 End: 26-63-8552Hwqko metabolic 2000 panel - Serum or PlasmaBasic Metabolic Panel Lab Routine Essential hypertension, benign Expected: 05/01/2023 (Approximate), Expires: 05/01/2024[facility] Work Phone: Comment on above:Expected: 05/01/2023 (Approximate), Expires: 05/01/2024Start: 05-01-2023 End: 23-30-1070Qlivi 1996 panel - Serum or PlasmaLipid Panel Lab Routine Mild CAD Mixed hyperlipidemia Expected: 05/01/2023 (Approximate), Expires: 05/01/2024 [facility] Work Phone: Comment on above:Expected: 05/01/2023 (Approximate), Expires: 05/01/2024Start: 84-72-2197VOEUW-19 Vaccine ()COVID- 19 Vaccine ()[facility]: 71-65-8879Zuejaccvn vaccinationInfluenza Vaccine (#1)[facility]: 89-62-9913USG, Provider: Marissa Valentin, Status: Pen, Time: 10:30 AMFUV, Provider: Marissa Valentin, Status: Pen, Time: 10:30 AMMPRegions [facility] 250 DO Work Phone: Start: 96-57-2843TWQG, Provider: VIRGIL HHVI ULTRASOUND 01,[id number], Status: Pen, Time: 9:45 AMECHO, Provider: VIRGIL HHVI ULTRASOUND 01,[id number], Status: Pen, Time: 9:45 AMMulti[facility] [place] 250 DO Work Phone: Start: 82-82-0151ZKA, Provider: Marissa Valentin, Status: Pen, Time: 11:30 AMFUV, Provider: Marissa Valentin, Status: Pen, Time: 11:30 AMMultiCare Health [facility] 250 DO Work Phone: Start: 31-41-7904IGKTIBBCBG, Provider: BEE DO FILM INSPECTOR 1,[id number], Status: Pen, Time: 1:00 PMWDIAMOND GROVE CENTERREBECA, Provider: BEE DO FILM INSPECTOR 1,[id number], Status: Pen, Time: 1:00 PMMultiCare Health [facility] 250 DO Work Phone: Start: 17-26-9500LijqxuretKettering Health [facility] Township Start: 29-87-9802Ztrpumij admissionOhio State Harding Hospitaltart: 88-83-5808UzrxyeugeOhio State Harding Hospitaltart: 49-67-4312SezsehnziOhio State Harding Hospitaltart: 02-92-1390Fjjbgidy to cardiac rehabilitation program [facility]: 73-37-1946DqpuaqfqoOhio State Harding Hospitaltart: 27-17-7871Ramqxubd admissionOhio State Harding Hospitaltart: 42-54-6092Uxguamhqyry of Left Heart using Low Osmolar ContrastFluoroscopy of Left Heart using Low Osmolar ContrastOhio State Harding Hospitaltart: 84-95-2856Lmliwobsath of Multiple Coronary Arteries using Low Osmolar Contrast Fluoroscopy of Multiple Coronary Arteries using Low Osmolar ContrastOhio State Harding Hospitaltart: 12-86-0098Kxnvrahzu of Pacemaker Lead into Right Atrium, Percutaneous ApproachInsertion of Pacemaker Lead into Right Atrium, Percutaneous ApproachOhio State Harding Hospitaltart: 94-66-0350Ubttpjeik of Pacemaker Lead into Right Ventricle, Percutaneous ApproachInsertion of Pacemaker Lead into Right Ventricle, Percutaneous ApproachOhio State Harding Hospitaltart: 56-08-2168Fldsuhhnw of Pacemaker, Dual Chamber into Chest Subcutaneous Tissue and Fascia, Open ApproachInsertion of Pacemaker, Dual Chamber into Chest Subcutaneous Tissue and Fascia, Open ApproachOhio State Harding Hospitaltart: 55-75-0302Sjiipgowwhk of Cardiac Sampling and Pressure, Left Heart, Percutaneous ApproachMeasurement of Cardiac Sampling and Pressure, Left Heart, Percutaneous ApproachKettering Health Washington Township Start: 14-73-1245Rdcnjwakroz of Cardiac Pacing, ContinuousPerformance of Cardiac Pacing, ContinuousOhio State Harding Hospitaltart: 27-78-3260Uyxeriuvj vaccinationINFLUENZA (#1)[facility]: 55-12-9948DDBJRLY DIRECTIVE DISCUSSIONADVANCE DIRECTIVE DISCUSSIONGrand Lake Joint [facility] District Memorial Hospitaltart: 91-04-2098BZLBW-19 VACCINE (3 - Booster for Pfizer series)COVID-19 VACCINE (3 - Booster for Pfizer series)[facility]: 29-35-9458Nfwvkpnyjpco Vaccine: 65+ Years (2 of 2 - PPSV23 or PCV20)Pneumococcal Vaccine: 65+ Years (2 of 2 - PPSV23 or PCV20) [facility]: 42-77-4238TYwB/Tdap/Td Vaccines (1 - Tdap)DTaP/Tdap/Td Vaccines (1 - Tdap)[facility]: 42-29-1127ENG High Risk: (Elderly (60+) or Population) (1 - 1-dose 75+ series)RSV High Risk: (Elderly (60+) or Population) (1 - 1-dose 75+ series)[facility]: 07-39-4426LIY Vaccine (1 - 1-dose 75+ series)RSV Vaccine (1 - 1-dose 75+ series)[facility]: 2003 BONE DENSITYBONE DENSITYGrand [facility] Joint [facility] District Memorial Hospitaltart: 88-38-1302Yizhrbyazrkt Vaccine: 65+ (1 of 1 - PCV)Pneumococcal Vaccine: 65+ (1 of 1 - PCV)[facility]: 05-53-9928FHQCIVWGPTVP: 65+ (1 - PCV)PNEUMOCOCCAL: 65+ (1 - PCV)[facility] Start: 66-74-0488Inkqrnqfw for osteoporosisBone Density ScreeningGrand Lake Joint Township District Memorial Hospitaltart: 98-93-5011PSS patients and/or patients aged 60+ years (1 - 1-dose 60+ series)RSV patients and/or patients aged 60+ years (1 - 1- dose 60+ series)[facility]: 71-54-3166MWUXGWHX VACCINE (1 of 2)SHINGRIX VACCINE (1 of 2)[facility]: 98-55-8975Tifqzk Vaccines (1 of 2)Zoster Vaccines (1 of 2)[facility]: 28-07-9635EHwL/Tdap/Td Vaccines (1 - Tdap)DTaP/Tdap/Td Vaccines (1 - Tdap) [facility]: 69-85-7805Npglcqyuqzep vaccination Pneumococcal Vaccine (1 of 2 - PCV)[facility]: 42-98-3017Uonsu microalbumin profileCleWood County Hospitaltart: 08-28-9153Zveueka ScreeningAnxiety ScreeningGrand [facility]: 20-20-8314Xfalvekvji Screening Depression ScreeningGrand Lake Joint Township District Memorial Hospitaltart: 29-50-5210Gfeenoth mellitus screening Diabetes [facility]eningSouthern [facility]: 24-37-9799Laxowkzmxvng Vaccine: 65+ Years (1 - PCV)Pneumococcal Vaccine: 65+ Years (1 - PCV)[facility]: 52-39-5643CMJDM-19 Vaccine (#1)COVID-19 Vaccine (#1)[facility]: 50-97-9265Hxwywcbkxw measurement Creatinine LevelUnPike Community Hospital: 37-03-2650Ykmbw panel Lipid PanelUnPike Community Hospital: 1938Medicare Annual Wellness VisitMedicare Annual Wellness Visit (AWV)[facility]: 55-48-3618Wpdkwnwfq measurementPotassium LevelUnPike Community Hospital: 39-88-8113Vitnbndjo for osteoporosisBone Density ScanUnProMedica Flower HospitalComprehensive metabolic 2000 panel - Serum or PlasmaKettering Health Washington TownshipPatient EducationOhio State East Hospital Ctr Work Phone: Patient referralOhio State East Hospital Ctr Work Phone: End: 89-47-2143RA HIP GENERAL 3V PELV/AP/LAT RIGHTXR HIP GENERAL 3V PELV/AP/LAT RIGHT Radiology Routine History of revision of total replacement of right hip joint 1 Occurrences starting 01/07/2022 until 3[facility] Work Phone: comment on above:1 Occurrences starting 01/07/2022 until 02/06/2023[facility] Immunizations Immunization DateImmunizationNotesCare UietpdrzOunuskyp89-73-2360mcqihlmpa, high dose seasonal, preservative-freeBenjamin Ball DO Work Phone: [facility]09-19-2024influenza, high dose seasonal, preservative-freeKettering Health [facility] Township09-19-2024 influenza virus vaccine, unspecified formulationLucy Degroot MD Work Phone: [facility] Work Phone: [phone]) [phone]luwjvwrs virus vaccine, unspecified formulationDO Blue Navarro Work Phone: [facility]10-17-2023influenza, high dose seasonal, preservative-freeBenjamin Ball Other [employer] Other [id number] vaccine, quadrivalent, adjuvanted Blue Navarro DO Work Phone: [facility]10-17-2022influenza virus vaccine, split virus (incl. purified surface antigen)Blue Navarro Other [employer] Other [id number] virus vaccine, unspecified formulationDO Blue Navarro Work Phone: [facility]10-17-2022influenza, high dose seasonal, preservative-freeBenjamin Melanie Other [employer] Other 10138808-34-2984cuvuyugna virus vaccine, split virus (incl. purified surface antigen)Blue Navarro Other [employer] Other 10-806091-81-1241kqyrhykwa virus vaccine, unspecified formulationDO Blue Navarro Work Phone: [facility]02-17-2021COVID-19 mRNA, Comirnaty (Pfizer)DO Blue Navarro Work Phone: [facility]01-25-2021COVID-19 mRNA, Comirnaty (Pfizer)DO Blue Navarro Work Phone: [facility]10-08-2020influenza virus vaccine, split virus (incl. purified surface antigen)Blue Navarro Other [employer] Other 10981418-43-3555jfadugxbb virus vaccine, unspecified formulationDO Blue Navarro Work Phone: [facility]10-08-2020Seasonal trivalent influenza vaccine, adjuvanted, preservative freeBenjamin Ball DO Work Phone: [facility]09-12-2019Seasonal trivalent influenza vaccine, adjuvanted, preservative freeBenjamin Ball DO Work Phone: [facility]09-12-2019influenza virus vaccine, unspecified formulationXr Hts Work Phone: [facility]Weobla13-66-6034dvzuydqvh virus vaccine, split virus (incl. purified surface antigen)Blue Navarro Other [employer] Other 09177974-48-1363slalttczg virus vaccine, unspecified formulationDO Blue Melanie Work Phone: [facility]09-10-2018Seasonal trivalent influenza vaccine, adjuvanted, preservative freeBenjamin Ball DO Work Phone: [facility]08-13-2015 pneumococcal conjugate vaccine, 13 valentBenjamin Ball Other [facility]08-12-2015 pneumococcal conjugate vaccine, 13 valentBenjamin Ball Other [facility]08-12-2015 pneumococcal Conjugate, unspecified formulation; Translations: [Need for prophylactic vaccination against Streptococcus pneumoniae (pneumococcus)] Blue Navarro Other [employer] Other [id number], injectable, quadrivalent, contains preservativeBenjamin Ball DO Work Phone: [facility]10-24-2013tetanus and diphtheria toxoids, adsorbed, preservative free, for adult use (5 Lf of tetanus toxoid and 2 Lf of diphtheria toxoid)Blue Navarro Other [facility]06-20-2000tetanus toxoid, adsorbedBenjamin Melanie Other [facility] Payers DatePayer CategoryPayerPolicy [id number]-iil [id number] 2024Medicare (Managed Care)[facility] [id number] [id number] Health InsuranceHUDSON COUNTY MEADOWVIEW HOSPITALA HUMANA MEDICARE SUPPLEMENT [id number] 2015-Present [phone] [address] [address] [place] [address] [id number] Health Insurance [id number] 2003MedicareMEDICARE MEDICARE A AND B [id number] 2003-Present [phone] [address] [address] [place] [address] [id number]. [id number] [id number] Health [id number] 2.16.840.1.848828.3.57[id number] 2.16.840.1.837463.3.57[id number] 2.16.840.1.040580.3.57[id number] 2..840.1.292847.3.57[id number] 2..840.1.067622.3.57[id number] 2..840.1.305360.3.57[id number] 2..840.1.938219.3.57[id number] 2..840.1.709906.3.579.[id number] 2..840.1.406582.3.57[id number] 2..840.1.164140.3.57[id number] 2..840.1.364549.3.579.2.9[id number] 2..840.1.682977.3.57[id number] 2.16.840.1.535622.3.57[id number] 2.840.1.490474.3.57[id number] 2..840.1.502899.3.57[id number] 2.840.1.6[id number] 2.840.1.968878.3.579.2.531 [id number] 2..840.1.1[id number] 2.0.1.703231.3.579.2.531 Social History DateTypeDetailFacilityTobacco smoking status NHISUnknown if ever smokedOhio State East Hospital CtrStart: 63-29-6390Ixn Assigned At BirthFeKettering Health – Soin Medical Centertart: 09-29-2020 End: 71-39-5112Abplryd smoking status NHISEx-smokerGrand [facility] District Memorial Hospitaltart: 02-19-1960 End: 02-84-6234Vysgnve of tobacco useCurrent smokerGrand Lake [facility] District Memorial Hospitaltart: 09-29-2020 End: 16-10-4577Lnfnazvfjt smoked current (pack per day) - Reported0.5[facility] ClinicComment on above:40-50 years ago;Start: 09-29-2020 End: 34-26-0118Lewsiun use and exposureSmokeless tobacco non-userGrand [facility] District Memorial Hospitaltart: 04-27-2021 End: 90-07-2962Yteljxl intakeEx-drinker (finding)[facility]tart: 32-90-4605Hdt Assigned At BirthNot on fileGrand [facility] District Memorial Hospitaltart: 06-27-2021 End: 65-03-0261Qrdthpdh to SARS-CoV-2 (event)Not sureGrand [facility] District Memorial Hospitaltart: 02-19-1960 End: 77-31-9286Pmjuwyp of tobacco useCigarette SmokerGrand Lake [facility] District Memorial Hospitaltart: 05-06-2022 End: 86-87-1185Uuzorfw smoking status NHISNever smoked tobacco (finding) [facility]: 04-26-2023 End: 46-68-8036Gvd [facility] ClinicStart: 05-01-2023 End: 72-06-9462Ispxass intakeCurrent drinker of alcohol (finding)[facility] Work Phone: Start: 88-00-6943Licdwsz CommentoccasionallyUnProMedica Flower Hospital Work Phone: Start: 00-60-7406Ijbvn Depression Screening Assessment 2Cprovidence hospital ClinicStart: 04-23-2024 End: 90-76-1253NtwUjhhwq (finding)[facility] Medical Equipment Procedure CodeEquipment CodeEquipment Original TextEquipment IdentifierDates Insertion, pacemakerEndocardial pacing lead ()[id number] FDAStart: 43-35-4330Xbjgtjlhl, pacemakerEndocardial pacing lead()[id number] FDA Start: 71-71-1711Yxnggdwlm, pacemakerDual-chamber implantable pacemaker, rate-responsive()[id number] FDAStart: 05-06-2022 Trident X3 Polyethylene Insert 0deg 32mm Sz [id number]: 90-74-2368Nadk V40 32mm -4mm Offset Taper Biolox Delta Femoral Hip - [id number]_lge Start: 52-19-6990Kbdd Accolade Ii 5 127d Femoral - [id number]_afrIeren: 24-14-2562Uliu V40 Lfit 22mm +0mm Offset Taper Cocr Femoral Primary Hip - [id number]_zxaDjxhb: 09-69-1218Nyxwd Trident Ii 50mm D Tritanium Acetabular 3 Screw Hole Cluster Sterile - [id number]_eoxOohur: 01-22-2021 Insert Mobile Bearing Hip Nondenominational 38d X3 22.2mm Acetabular Anatomic - [id number]_jdrIiihp: 32-96-7234Qvaoq 38mm D Acetabular Modular 2 Mobility Hip - [id number]_wqjDejrl: 43-49-0862Xktec Trident Ii 6.5mm 30mm Bone Low Profile Hexagonal Sterile - [id number]_sreIseiy: 36-73-2459Ouznbcx artery closure plug/patch, synthetic polymer()[id number] FDAStart: 05-06-2022 Goals DatePatient GoalDesired Activity/State Functional Status CyxwRmwismladcYrnbtwFrcicfwf97-60-4235Mhzojzmfcf statusPatient at Baseline [facility] Work Phone: 1(167) 188-586912003023-21-1322Blshqlvruu statusPatient at Baseline [facility] Work Phone: 1(627) 362-446312680527-54-5580Axpowelykg statusPatient at Baseline [facility] Work Phone: Mental Status HpsbBpfepcxhytUuzrddVynobdzg03-77-3210Vzupetjhh functionCognitive Status Patient at BaselineOhio [facility] Hospital [facility]tr Work Phone: 1(770) 654-262312-556628-18-6362Faitiamje functionCognitive Status Patient at BaselineOhio State [facility] Hospital [facility]tr Work Phone: 1(565) 285-761312306649-59-2655Kfiyjwago functionCognitive Status Patient at BaselineOhio State East Hospital Ctr Work Phone: Clinical Notes 09-29-2020 to 02-25-2025 Note Date & TpyhDrvsTdftgbdt73-46-9286 Evaluation note* Diagnosis Onset Date Resolution Status Admit Date Brachioradial pruritus acuteSeptember 2024 9:51amElevated cholesterolacuteSeptember 2024 9:51amGAD (generalized anxiety disorder)acuteSeptember 2024 9:51amLumbar spondylosisacuteSeptember 2024 9:51amPrimary hypertensionacuteSeptember 2024 9:51amPrimary osteoarthritis of left kneeacuteSeptember 2024 9:51amType 2 diabetes mellitus with hyperglycemiaacuteSeptember 2024 9:51am [facility] Work Phone: 1(119) 457-306107-23-2025 History of Present illness Narrative* Lucy Degroot MD - 12/25/2024 11:00 AM EDT Chief Complaint Patient presents with Follow-up 1 year Follow up for Hypertension Subjective Roseann Dale is a 84 y.o. female HPI Patient is here for follow-up continue management for history of sick sinus syndrome status post permanent pacemaker implantation, previous history of stress cardiomyopathy, mild coronary artery disease based on previous heart cath and hyperlipidemia. Since she is a former patient of Dr. Ruiz. Since last time she was seen she denies complaint of chest pain, palpitation, lightheadedness, dizziness or syncope. She reports she continues to walk a mile every day. Recent lab work noted and reviewed with her. Recent device check also noted and reviewed with her. Assessment 1. History of complete heart block status post permanent pacemaker implantation with appropriate device function based on last device check 2. Essential hypertension controlled with valsartan and currently on amlodipine 3. History of stress-induced cardiomyopathy improved last echocardiogram showed normal LV systolic function 4. Hyperlipidemia reasonably controlled on atorvastatin 5. BMI 25 6. Edema due to amlodipine Plan 1. We discussed treatment option for her hypertension. Patient is quite bothered by the edema. I suggested discontinue amlodipine and start Toprol-XL 25 mg daily which is more appropriate consideringprevious history of LV systolic dysfunction 2. I reviewed her recent lab work and device check 3. I suggested a yearly follow-up 4. Advised to continue her device check follow-up Review of Systems All other systems reviewed and are negative. Vitals: 12/25/24 1140 BP: 104/62 BP Location: Left arm Patient Position: Sitting Pulse: 69 Weight: 64.9 kg (143 lb) Height: 1.6 m (5' 3 ) EKG done in office today Objective Physical Exam Constitutional: Appearance: Normal appearance. HENT: Nose: Nose normal. Neck: Vascular: No carotid bruit. Cardiovascular: Rate and Rhythm: Normal rate. Pulses: Normal pulses. Heart sounds: Normal heart sounds. Pulmonary: Effort: Pulmonary effort is normal. Abdominal: General: Bowel sounds are normal. Palpations: Abdomen is soft. Musculoskeletal: General: Normal range of motion. Cervical back: Normal range of motion. Right lower leg: No edema. Left lower leg: No edema. Skin: General: Skin is warm and dry. Neurological: General: No focal deficit present. Mental Status: She is alert. Psychiatric: Mood and Affect: Mood normal. Behavior: Behavior normal. Thought Content: Thought content normal. Judgment: Judgment normal. Allergies Patient has no known allergies. Current Medications Current Outpatient Medications Medication Instructions aspirin 81 mg EC tablet 1 tablet, Daily atorvastatin (LIPITOR) 10 mg, oral, Nightly citalopram (CeleXA) 20 mg tablet 1 tablet, Daily diazePAM (Valium) 5 mg tablet 1 tablet, 3 times daily PRN furosemide (Lasix) 40 mg tablet 1 tablet, Daily magnesium oxide (MAG-OX) 400 mg, oral, Daily metoprolol succinate XL (TOPROL-XL) 25 mg, oral, Daily, Do not crush or chew. multivitamin tablet 1 tablet, Daily valsartan (DIOVAN) 160 mg, oral, 2 times daily Assessment/Plan 1. Complete heart block 2. Essential hypertension, benign Follow Up In Cardiology metoprolol succinate XL (Toprol-XL) 25 mg 24 hr tablet 3. Stress-induced cardiomyopathy Follow Up In Cardiology metoprolol succinate XL (Toprol-XL) 25 mg 24 hr tablet ECG 12 Lead 4. Mixed hyperlipidemia 5. Mild CAD 6. Cardiac pacemaker Referral to Pacemaker Clinic and Follow Up 7. BMI 25.0-25.9,adult 8. Lower extremity edema Scribe Attestation By signing my name below, Ashley Goff LPN, Scribe attest that this documentation has been prepared under the direction and in the presence of MD Jose Armando. Provider Attestation - Scribe documentation All medical record entries made by the Scribe were at my direction and personally dictated by me. Ihave reviewed the chart and agree that the record accurately reflects my personal performance of the history, physical exam, discussion and plan. documented in this [facility] Work Phone: 1([phone]) 830-872907-23-2025 Instructions* Patient Instructions* Ashley Tiwari LPN - 12/25/2024 11:00 AM EDT Please bring all medicines, vitamins, and herbal supplements with you when you come to the office. Prescriptions will not be filled unless you are compliant with your follow up appointments or have a follow up appointment scheduled as per instruction of your physician. Refills should be requested at the time of your visit. BMI was above normal measurement. Current weight: 64.9 kg (143 lb) Weight change since last visit (-) denotes wt loss 1 lbs Weight loss needed to achieve BMI 25: 2.2 Lbs Weight loss needed to achieve BMI 30: -26 Lbs Provided instructions on dietary changes Pacemaker/Defibrillator follow up per routine documented in this [facility] Work Phone: 1(655) 246-976703-20-2025 Evaluation note* Diagnosis Onset Date Resolution Status Admit Date Elevated cholesterol acuteAugust 22, 2024 9:53amGAD (generalized anxiety disorder)acuteAugust 22, 2024 9:53amLumbar spondylosisacuteAugust 22, 2024 9:53amMammogram declinedacute August 22, 2024 9:53amPrimary hypertensionacuteAugust 22, 2024 9:53amPrimary osteoarthritis of left knee2024 9:53amType 2 diabetes mellitus with hyperglycemiaacuteAugust 22, 2024 9:53amMedicare annual wellness visit, subsequentnoneactiveAugust 22, 2024 9:53am [facility] Work Phone: 1([phone]) 948-784509-19-2024 Evaluation note* Diagnosis Onset Date Resolution Status Admit Date Elevated cholesterol acuteSept2023 9:54amGAD (generalized anxiety disorder)acuteSept2023 9:54amLumbar spondylosisacuteSept2023 9:54amOverweight acuteSeptember 2023 9:54amPrimary hypertensionacuteSeptember 2023 9:54amPrimary osteoarthritis of left kneeacuteSeptember 2023 9:54amType 2 diabetes mellitus with hyperglycemiaacuteSeptember 2023 9:54am [facility] Work Phone: 1([phone]) 768-222806-25-2024 Instructions* Patient Instructions* Chantell Mathews LPN - [...] time of your visit. documented in this [facility]Select [facility] Work Phone: [phone]) 816-164401-29-2024 Evaluation note* Encounter Date Diagnosis Assessment Notes Treatment Notes Treatment Clinical Notes Jun, Primary hypertension (ICD-10 - I 10) [employer] Other 11-27-2023 Evaluation + Plan note* Assessment & Plan Note - MELANIE Josue - 05/01/2023 8:53 AM ESTAssociated Problem(s): Mixed hyperlipidemia Maintained on low intensity statin Is due for annual lab work [facility] Work Phone: [phone] 460-306911-27-2023 Evaluation + Plan note* Assessment & Plan Note - MELANIE Josue - 05/01/2023 8:53 AM ESTAssociated Problem(s): Essential hypertension, benign Elevated in office Follows at home and 'always fine' Complaint with norzoraida and royervan No beta-jermain due to myasthenia gravis [facility] Work Phone: [phone]) 658-938211-27-2023 Miscellaneous Notes* Assessment & Plan Note - [...] (complete heart block) Jan 2023 device interrogation INFANT NANNY 12% * Assessment & Plan Note - MELANIE Josue - 05/01/2023 8:02 AM EST Associated Problem(s): Cardiac and Vasculature May 2022 presented to [facility] due to weakness. She was noted to [...] Takotsubo WMA, EF 55%. documented in this [facility] Work Phone: [phone]) 721-125611-27-2023 History of Present illness Narrative* MELANIE Josue [...] Cardiac and Vasculature May 2022 presented to [facility] due to weakness. She was noted to [...] (complete heart block) Jan 2023 device interrogation INFANT NANNY 12% Mild CAD May 2022 cardiac cath [...] contact the office if new symptoms arise. A CLASS LINEMAN in 2 weeks Marissa Caldera MSN, OPTIMIZATION MANAGER-OIL AND GAS EXPLORATION TECHNICIAN, PMHNP-[facility] Please excuse any errors in grammar or translation related to this dictation. Voice recognition software was utilized to prepare this document. documented in this [facility] Work Phone: [phone]) 884-161911-27-2023 Instructions* Patient Instructions* MELANIE Josue - 05/01/2023 [...] contact the office if new symptoms arise. A CLASS LINEMAN in 2 weeks documented in this encounterSelect [facility] Work Phone: [phone]) 631-465911-27-2023 Evaluation + Plan note* Assessment & Plan Note - MELANIE Josue - 05/01/2023 8:04 AM ESTAssociated Problem(s): Stress-induced cardiomyopathy May 2022: cardiac cath Takotsubo EF 40% October 2022: TTE normalized WMA EF 55% [facility] Work Phone: [phone]) 396-826111-27-2023 Evaluation + Plan note* Assessment & Plan Note - MELANIE Josue - 05/01/2023 8:03 AM ESTAssociated Problem(s): Mild CAD May 2022 cardiac cath minimal CAD [facility] Work Phone: [phone] 239-954211-27-2023 Evaluation + Plan note* Assessment & Plan Note - MELANIE Josue - 05/01/2023 8:03 AM ESTAssociated Problem(s): Cardiac pacemaker May 2022: SJM dual-chamber PPM (complete heart block) Jan 2023 device interrogation INFANT NANNY 12% [facility] Work Phone: 1([phone]) 620-312311-27-2023 Evaluation + Plan note* Assessment & Plan Note - MELANIE Josue - 05/01/2023 8:02 AM ESTAssociated Problem(s): Cardiac and Vasculature May 2022 presented to [facility] due to weakness. She was noted to [...] TTE with resolution Takotsubo WMA, EF 55%. [facility] Work Phone: 1([phone]) 129-691510-17-2023 Evaluation note* Encounter Date Diagnosis Assessment Notes Treatment Notes Treatment Clinical Notes Mar, Primary hypertension (ICD-10 - I 10) This patient is instructed to consume a healthy, low-fat, low-salt diet. They are also encouraged to continue exercise to achieve/maintain a normal BMI. Patient is instructed on home BP measurements: - rest for 5 minutes w/o talking- positioned w/ feeton floor and arm supported- average best 2/3 readings w/ goal < 135/85 Call w/ update in couple weeks Mar,Type 2 diabetes mellitus with hyperglycemia, without long-term current use of insulin (ICD-10 - E11.65)This patient is following a comprehensive diabetic treatment plan. They are checking their feet daily for calluses and nonhealing ulcers. They are being seen for yearly dilated eye examinations. Goals: SBP less than 130, LDL less than 100, FBS less than 140, A1C less than 7%. Mar,Elevated cholesterol (ICD-10 - E78.00)Instructed on diet and exercise with continued statin therapy.Discussed the beneficial effects of lo wering cholesterol in reducing the risk for cerebrovascular and cardiovascular disease. Mar,AD (generalized anxiety disorder) (ICD-10 - F41.1)Healthy diet and exercise Keep active Mar,rimary osteoarthritis of right hip (ICD-10 - M16.11)Ice/heat and Tylenol. Fall precautions Use cane/walker for stability Mar,Heart failure with improved ejection fraction (HFimpEF) (ICD-10 - I50.22)Instructed on low salt diet, exercise and daily weights. Instructed to notify office for any unexpected weight gain > 3lbs and/or increased dyspnea, difficulty breathing during sleep, worsening lower extremity swelling, chest pain or lightheadedness. Reviewed GDMT w/ beta blockers, MANOJ/ARB/ARNI,MRA and SGLT-2 Mar,Lumbar spondylosis (ICD-10 - M47.816)Stretching exercises, heat/ice and salonpas patch. Tylenol as needed. 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 f/u Cardiology clinic as scheduled Mar,acemaker (ICD-10 - Z95.0)f/u PM clinic [employer] Other 07-13-2023 Evaluation note* Encounter Date Diagnosis Assessment Notes Treatment Notes Treatment Clinical Notes Dec, Primary hypertension (ICD-10 - I 10) This patient is instructed to consume a healthy, low-fat, low-salt diet. They are also encouraged to continue exercise to achieve/maintain a normal BMI. Dec,Type 2 diabetes mellitus with hyperglycemia, without long-term current use of insulin (ICD-10 - E11.65)This patient is following a comprehensive diabetic treatment [...] Microalbumin, Dilated eye exam and Foot exam Dec,hronic HFrEF (heart failure with reduced ejection fraction) (ICD-10 - I50.22)MG prohibits BB Instructed on low salt diet, exercise and daily weights. Instructed to notify office for any unexpected weight gain > 3lbs and/or increased dyspnea, difficulty breathing during sleep, worsening lower extremity swelling, chest pain or lightheadedness. Reviewed GDMT w/ beta blockers, MANOJ/ARB/ARNI,MRA and SGLT-2 Dec,Takotsubo cardiomyopathy (ICD-10 - I51.81)Stress induced No s/s tachycardia or CHF Fluid and salt restriction Monitor daily weights - extra diuretic for any unexplained weight gain > 3lbs Home monitoring for recurrent VT Dec,Elevated cholesterol (ICD-10 - E78.00)Instructed on diet and exercise with continued statin therapy.Discussed the beneficial effects of lo wering cholesterol in reducing the risk for cerebrovascular and cardiovascular disease. 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 They are also encouraged to continue exercise to achieve/maintain a normal BMI. Sep,Takotsubo cardiomyopathy (ICD-10 - I51.81)Daily weights Take extra Lasix for unexplained weight gain > 2lbs Sep,AD (generalized anxiety disorder) (ICD-10 - F41.1)Healthy diet, keep active, no change in medications [facility] Other 04-03-2023 Evaluation note* Encounter Date Diagnosis Assessment Notes Treatment Notes Treatment Clinical Notes Sep, Essential hypertension (ICD-10 - I10) [facility] Other 03-29-2023 Evaluation note* Encounter Date Diagnosis Assessment Notes Treatment Notes Treatment Clinical Notes Aug, Essential hypertension (ICD-10 - I10) [facility] Other 03-24-2023 Evaluation note* Encounter Date Diagnosis [...] will need labs to r/o myocardial ischemia Aug,Takotsubo cardiomyopathy (ICD-10 - I51.81)Continue GDMT Aug,HFrEF (heart failure with reduced ejection fraction) (ICD-10 - I50.20)Avoid salt, healthy diet, exercise. Daily weights, extra diuretic for weight gain. Improve BP control Aug,Type 2 diabetes mellitus with hyperglycemia, without long-term current use of insulin (ICD-10 - E11.65)This patient is following a comprehensive diabetic treatment plan. They are checking their feet daily for calluses and nonhealing ulcers. They are being seen for yearly dilated eye examinations. Goals: SBP less than 130, LDL less than 100, FBS less than 140, AC and A1C less than 7%. They are checking their BS daily, will which are reviewed at the office visit. Aug,hronic venous insufficiency (ICD-10 - I87.2)Avoid salt and elevate lower extremities, support stockings, inspect legs and feet daily for blisters and ulcerations. Aug,Hyperlipidemia, group A (ICD-10 - E78.00)Diet and exercise with continued statin therapy. Aug,nxiety, generalized (ICD-10 - F41.1)Healthy diet, exercise and continue SSRI and VAlium PRN [facility] Other 03-22-2023 Evaluation note* Encounter Date Diagnosis [...] and exercise. Reviewed age-appropriate preventive testing recommended. Aug,Essential hypertension (ICD-10 - I10)This patient is instructed to consume a healthy, low-fat, low-salt diet. They are also encouraged to continue exercise to achieve/maintain a normal BMI. Aug,Type 2 diabetes mellitus with hyperglycemia, without long-term current use of insulin (ICD-10 - E11.65)This patient is following a comprehensive diabetic treatment [...] A1C: [ ] Microalbumin: [ ] Eye exam:[ ] Foot exam: [ ] Aug,Takotsubo cardiomyopathy (ICD-10 - I51.81)Continue GDMT Echo scheduled w/ Cardiology Aug,HFrEF (heart failure with reduced ejection fraction) (ICD-10 - I50.20)Continue GDMT Daily weights, take extra diuretic for unexpected weight gain > 3lbs Aug,Hyperlipidemia, group A (ICD-10 - E78.00)Diet and exercise with continued statin therapy. Aug,nxiety, generalized (ICD-10 - F41.1)Healthy diet, keep active Aug,hronic venous insufficiency (ICD-10 - I87.2)Avoid salt and elevate lower extremities, support stockings, inspect legs and feet daily for blisters and ulcerations. Aug,History of cardiac pacemaker in situ (ICD-10 - Z95.0) Aug,High risk medication use (ICD-10 - Z79.899) [facility] Other 03-14-2023 Evaluation note* Encounter Date Diagnosis Assessment Notes Treatment Notes Treatment Clinical Notes Aug, Essential hypertension (ICD-10 - I10) This patient is instructed to consume a healthy, low-fat, low-salt diet. They are also encouraged to continue exercise to achieve/maintain a normal BMI. Aug,Type 2 diabetes mellitus with hyperglycemia, without long-term current use of insulin (ICD-10 - E11.65)This patient is following a comprehensive diabetic treatment [...] the office visit. A1C at wellness examination. Aug,Takotsubo cardiomyopathy (ICD-10 - I51.81)Stress induced cardiomyopathy No hemodynamically significant CAD noted on [facility] Aug,HFrEF (heart failure with reduced ejection fraction) (ICD-10 - I50.20)GDMT as much as tolerable. Unable to continue BB due to exacerbation of MG symptoms. Daily weights, extra diuretic for excessive weight gain - frequency is once weekly Aug,Hyperlipidemia, group A (ICD-10 - E78.00)Diet and exercise with continued statin therapy. Aug,nxiety, generalized (ICD-10 - F41.1)Healthy diet, keep active and continue Celexa Aug,hronic venous insufficiency (ICD-10 - I87.2)Avoid salt and elevate lower extremities, support stockings, inspect legs and feet daily for blisters and ulcerations. Aug,RLS (restless legs syndrome) (ICD-10 - G25.81)Symptoms tolerable Aug,History of cardiac pacemaker in situ (ICD-10 - Z95.0)f/u Cardiology 80% use [facility] Other 02-13-2023 Evaluation note* Encounter Date Diagnosis Assessment Notes Treatment Notes Treatment Clinical Notes Jul, Essential hypertension (ICD-10 - I10) This patient is instructed to consume a healthy, low-fat, low-salt diet. They are also encouraged to continue exercise to achieve/maintain a normal BMI. Increasing Lisinopril to 10mg and can take extra 5mg q evening for SBP > 160. Goal is < 140.90 Jul,Type 2 diabetes mellitus with hyperglycemia, without long-term current use of insulin (ICD-10 - E11.65)Diet instructions, monitor A1C every 6- 12 mo Inspect feet daily for cuts, yearly dilated eye examination. 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 Jul,NSVT (nonsustained ventricular tachycardia) (ICD-10 - I47.29) Continue Coreg and Mg. Avoid stimulants 13 Feb, 2023Anxiety, generalized (ICD-10 - F41.1)Diazepam qd, avoid stimulants, keep active Jul,RLS (restless legs syndrome) (ICD-10 - G25.81)d/c'd Gabapentin, monitor for now [facility] Other 12-08-2022 History and physical note Author Julio Schreiber [facility] May 12, 2022 7:09pmNote Date/TimeDece2021 7:09pm[place] [address] Hospitalist H&P Signed Patient: Roseann Dale MR#: [id number] : 1940 Acct:[id number] Age/Sex: 82 / F Adm Date: 2 Loc: Room: [address] [place] [address] Type: ADM IN Attending Dr: Julio Schreiber DO Copies to: DO Julio De Luna, ~ HPI DATE OF EXAMINATION: 05/12/22 CHIEF COMPLAINT: shortness of breath HISTORY OF PRESENT ILLNESS: Miss Dale is an 82-year-old female with past medical history of hypertriglyceridemia, hypertension, myasthenia gravis, recent diagnosis of Takotsubo cardiomyopathy who presented to hospital with chief complaint earlier today of shortness of breath. The patient was recently discharged on May she was admitted for slow heart rate, shortness of breath where she received a pacemaker. She had been on Lasix therapy prior to that hospitalization and after the pacemaker was implanted and she was on the goal- directed medical therapy for Takotsubo, her Lasix was discontinued and she was discharged hemodynamically stable on the afternoon of 05/08/2022. Patient nyida did fine at home for couple of days with the new medication regimen, this included Coreg 6.25 twice daily, lisinopril 5 mg daily, aspirin 81 mg daily, magoxide 400 mg daily, and atorvastatin 10 mg daily. Patient nydia woke up this morning and was extremely short of breath around 2 AM. She denies any chest pain that woke with the shortness of breath, she denies any cough. She stated that shortness of breath washer only complaint. She subsequently came back to [...] % (Auto) 34.6 % (.) 05/12/22 06:52 [place] % (Auto) 5.3 % (.) 05/12/22 06:52 Eos % (Auto) 2.3 % (.) 05/12/22 06:52 Baso % (Auto) 1.2 % (.) 05/12/22 06:52 Nucleat RBC Rel Count 0.1 /100 WBC (0-0.5) 05/12/22 06:52 Neut # (Auto) 5.1 x10E3/uL (1.8-7.7) 05/12/22 06:52 Lymph # (Auto) 3.1 x10E3/uL (1.00-4.8) 05/12/22 06:52 [place] # (Auto) 0.5 x10E3/uL (0.0-0.8) 05/12/22 06:52 [...] 10:39 B-Natriuretic Peptide 1499.0 pg/mL (5-100) H 12 06:52 Total Protein 6.3 gm/dL (6.1-7.9) 12 06:52 Albumin 3.2 gm/dL (3.2-5.5) 05/12/22 06:52 Globulin 3.1 gm/dL 05/12/22 06:52 Albumin/Globulin Ratio 1.0 12 06:52 Urine Color Yellow (Yellow) 05/12/22 09:05 Urine Appearance Clear (Clear) 05/12/22 09:05 Urine pH 8.0 (5.0-9.0) 12 09:05 Ur Specific [place] 1.009 (1.001-1.030) 05/12/22 09:05 Urine Protein Negative [...] at 1:00. Documented By: Julio Schreiber DO 05/12/221900 Signed By: <Electronically signed by Julio Schreiber DO> 05/12/221908 [facility] Work Phone: 1([phone]) 406-261312-04-2022 Progress note Author Lucy Degroot [facility] May 08, 2022 1:52pmNote Date/TimeDecemb2021 1:52pm[place] [address] Cardiology Progress Note Signed Patient: Roseann Dale MR#: [id number] : 1940 Acct:[id number] Age/Sex: 82 / F Adm Date: 2 Loc: Room: [address] [place] [address] Type: ADM IN Attending Dr: José Nelson [...] % (Auto) 52.1 Lymph % (Auto) 32.8 [place] % (Auto) 10.9 Eos % (Auto) 3.6 Baso % (Auto) 0.6 Nucleat RBC Rel Count 0.1 Neut # (Auto) 2.9 Lymph # (Auto) 1.8 [place] # (Auto) 0.6 Eos # (Auto) 0.2 [...] be discharged home cardiac [facility] Documented By: Lucy Degroot MD 05/08/221 Signed By: <Electronically signed by MD Lucy Degroot> 05/08/221351 [facility] Work Phone: 1(440) 534-880412-04-2022 Progress note Author José Nelson [facility] May 08, 2022 12:44pmNote Date/TimeDece2021 12:44pm[place] [address] Hospitalist Progress Note Signed Patient: Roseann Dale MR#: [id number] : 1940 Acct:[id number] Age/Sex: 82 / F Adm Date: 2 Loc: Room: [address] [place] [address] Type: ADM IN Attending Dr: José Nelson [...] the patient is beginning toslowly look a littlebit better each day. The patient lives alone [...] the daughter in the hallway on the trade clerk how heart rate is doing now. Right [...] no wheezing. Does have moderate diminished breath soundsin the bases bilaterally. Lung sounds do seem to be clearing a moderate amount today compared to where they were yesterday. No focal areas of crackles. No cough. No expectoration of any sputum. Heart: Sinus rhythm on the monitor right now with no pacemaking at about 70 to 80 bpm. Auscultationheart sounds are somewhat distant but no hearing [...] mg 05/05/22 17:48 Bisacodyl 10 Mg Supp.Rect MI 05/05/23 17:47 DAILY PRN Constipation Bisacodyl 10 mg 05/05/22 17:48 05/08/22 08:11 Bisacodyl 5 Mg Tablet. PO 05/05/23 17:47 10 mg DAILY PRN [...] 05/06/23 08:57 Q5M PRN Chest Pain Phenyleph/Shark Oil/Gates Butter 1 supp 05/07/22 21:00 05/08/22 08:11 Phenylephrine/Gates Butter 6.25 Mg/2211 Mg 1 Supp MI 05/07/23 20:59 Not Given BID SONJA Potassium [...] think, that she has no history of lungdisease, that this is something that can be achievable soon. Patient needs additional immobilization and strengthening. Continues to need work from physical therapy and Occupational Therapy for mobilization. Coughing, incentive spirometry, deep breathing to reduce oxygen reliance. Cardiology has started Coreg and lisinopril and these can be titrated slowly daily depending on hertolerance with her blood pressure. Have ordered milk of magnesia to get her to move her bowels. I have ordered Preparation H suppositories and Tucks pads for her report of internal and external hemorrhoids. Documented By: José Nelson DO 1239 Signed By: <Electronically signed by José Nelson DO> 05/08/22 1243 [facility] Work Phone: 1([phone]) 594-647212-03-2022 Progress note Author José Nelson [facility] May 07, 2022 1:50pmNote Date/TimeDece2021 1:50pm[place] [address] Hospitalist Progress Note Signed Patient: Roseann Dale MR#: [id number] : 1940 Acct:[id number] Age/Sex: 82 / F Adm Date: 2 Loc: Room: 6G5650-0 Type: ADM IN Attending Dr: José Nelson [...] not complaining of pain at the pacemaker [facility]. She does comment that she has problems with hemorrhoids. She thinks that she isat least 10 years past her last colonoscopy. I recommended that she get a colonoscopy and then discussed with her familydoctor about hemorrhoid treatments. Exam Physical Exam Vital [...] no wheezing. Does have moderate diminished breath soundsin the bases bilaterally. Heart: She has a [...] Freq PRN Reason Stop Dose Admin Acetaminophen 650 [...] mg 05/05/22 17:48 Bisacodyl 10 Mg Supp.Rect MI 05/05/23 17:47 DAILY PRN Constipation Bisacodyl 10 [...] can be titrated slowly daily depending on hertolerance with her blood pressure. Have ordered milk of magnesia to get her to move her bowels. I have ordered Preparation H suppositories and Tucks pads for her report of internal and external hemorrhoids. She moved out of the ICU into the regular medical room with telemetry. Documented By: José Nelson DO 1345 Signed By: <Electronically signed by José Nelson DO> 05/07/22 1350 [facility] Work Phone: 1(209) 324-988112-03-2022 Progress note Author Lucy Degroot [facility] May 07, 2022 10:59amNote Date/TimeDece2021 10:[address] [address] Cardiology Progress Note Signed Patient: Roseann Dale MR#: [id number] : 1940 Acct:[id number] Age/Sex: 82 / F Adm Date: 2 Loc: Room: [address] [place] [address] Type: ADM IN Attending Dr: José Nelson [...] MPV Neut % (Auto) Lymph % (Auto) [place] % (Auto) Eos % (Auto) Baso % (Auto) Nucleat RBC Rel Count Neut # (Auto) Lymph # (Auto) [place] # (Auto) Eos # (Auto) Baso # [...] % (Auto) 68.2 Lymph % (Auto) 20.2 [place] % (Auto) 9.2 Eos % (Auto) 1.3 Baso % (Auto) 1.1 Nucleat RBC Rel Count 0.4 Neut # (Auto) 5.5 Lymph # (Auto) 1.6 [place] # (Auto) 0.7 Eos # (Auto) 0.1 [...] MPV Neut % (Auto) Lymph % (Auto) [place] % (Auto) Eos % (Auto) Baso % (Auto) Nucleat RBC Rel Count Neut # (Auto) Lymph # (Auto) [place] # (Auto) Eos # (Auto) Baso # [...] aspirin 3. Add magnesium oxide Documented By: Lucy Degroot MD 05/07/22 1052 Signed By: <Electronically signed by MD Lucy Degroot> 05/07/22 1059 [facility] Work Phone: 1([phone] 400-198612-02-2022 Progress note Author Danika Islas [facility] May 06, 2022 2:48pmNote Date/TimeDece2021 2:[address] [address] Event Note Signed Patient: Roseann Dale MR#: [id number] : 1940 Acct:[id number] Age/Sex: 82 / F Adm Date: 2 Loc: Room: [address] [place] [address] Type: ADM IN Attending Dr: José Nelson DO Copies to: DO José De Luna, DO Danika Islas MD~ Event Date & Type DATE OF [...] well. Monitor showed ventricular tachycardia which he spontaneouslyconverted to rhythm. Patient never lost pulse or [...] forfurther evaluation. Documented By: Danika Islas MD 05/06/22 1444 Signed By: <Electronically signed by Danika Islas MD> 05/06/22 6670 [facility] Work Phone: 1([phone]) 859-899812-02-2022 Progress note Author José Nelson [facility] May 06, 2022 1:04pmNote Date/TimeDece2021 1:[address] [address] Hospitalist Progress Note Signed Patient: Roseann Dale MR#: [id number] : 1940 Acct:[id number] Age/Sex: 82 / F Adm Date: 2 Loc: Room: 4S3982-2 Type: ADM IN Attending Dr: José Nelson DO Copies to: ~ Date of Service: 05/06/2022 Subjective Subjective Narrative: This morning a medical emergency was called as the patient was having episodes of ventricular tachycardia. She was taken for cardiac catheterization, finding extremely minimal coronary artery disease, but there was a left ventricular ejection fraction reduced at 40% and Takotsubo motion on the leftventricular wall motion. Subjectively this morning the patient [...] Bactrim that she was using at home thatthe urinary tract infection will be fully treated. [...] Freq PRN Reason Stop Dose Admin Acetaminophen 650 [...] mg 05/05/22 17:48 Bisacodyl 10 Mg Supp.Rect MI 05/05/23 17:47 DAILY PRN Constipation Bisacodyl 10 [...] coronary artery plaquing. A temporary pacemaker was placed.She will get a permanent pacemaker later today. Second problem is urinary tract infection which may have only been partially/non-completely treatedby oral Bactrim she took at home. Plan: Continue IV fluids. Continue transvenous pacemaking that was started this morning until permanent pacemaker is placed. Cardiology can consider guideline directed beta-blockers and MANOJ inhibitor's perthe Takotsubo phenomenon, once pacemaker is in place. Documented By: José Nelson DO 1258 Signed By: <Electronically signed by José Nelson DO> 05/06/22 2482 [facility] Work Phone: 1(123) 291-420612-02-2022 Consult note Author Chandu Daley [facility] May 06, 2022 9:24amNote Date/TimeDece2021 9:21[place] [address] Cardiology Consult Note Signed Patient: Roseann Dale MR#: [id number] : 1940 Acct:[id number] Age/Sex: 82 / F Adm Date: 2 Loc: Room: [address] [place] [address] Type: ADM IN Attending Dr: José Nelson DO Copies to: Blue Navarro,DO José Nelson, DO Chandu Daley DO~ Cardiology HPI History of Present Illness [...] walks 1 mile daily, lifts weights at [employer], has no prior historyof myocardial infarction, revascularization, [...] ECGs reviewed; we will proceed with emergentcatheterization andprobable temporary pacemaker placement and discussed with electrophysiology this morning. Review of Systems Review of Systems All other systems reviewed & are negative unless noted below or in HPI PMFSH Vaccinated for COVID-19?: Yes Medical History (Updated 05/06/22 @ 09:24 by Chandu Daley, DO) Cataracts, bilateral High triglycerides Hip dislocation, right HTN (hypertension) Myasthenia gravis Surgical History (Updated 05/05/22 @ 19:40 by José Nelson, DO) H/O thymectomy History of bowel resection [...] # (Auto) 1.5 1.9 2.1 (1.00-4.8) x10E3/uL [place] # (Auto) 0.5 0.6 0.7 (0.0-0.8) x10E3/uL Eos # (Auto) 0.0 0.1 0.0 (0.0-0.45) x10E3/uL Baso # (Auto) 0.1 0.0 0.1 (0.0-0.2) x10E3/uL Comprehensive Metabolic Panel 12/06/2605/06/22 05/06/22 Range/Units 18:33 05:10 08:04 Sodium 135 [...] 50 ml @ 100 mls/hr IV Q24H [facility] Rx #:[id number] Oral 300 / 300 0 / 0 [...] myocardial infarction Documented By: Chandu Daley DO 05/06/22 0914 Signed By: <Electronically signed by Chandu Daley DO> 05/06/22 0924 [facility] Work Phone: 1([phone]) 786-905112-02-2022 [facility] History and physical note Author José Nelson [facility] May 05, 2022 7:52pmNote Date/TimeDece2021 7:44pm[place] [address] Hospitalist H&P Signed Patient: Roseann Dale MR#: [id number] : 1940 Acct:[id number] Age/Sex: 82 / F Adm Date: 2 Loc: Room: [address] [place] [address] Type: ADM IN Attending Dr: José Nelson DO Copies to: DO José De Luna DO~ HPI DATE OF EXAMINATION: 05/05/22 CHIEF COMPLAINT: dyspnea, diaphoresis, slow heart rate. HISTORY OF PRESENT ILLNESS: This is an 82-year-old female who had been feeling unwell for the last couple days and went to an outside hospital emergency room where severe bradycardia wasdetected. She tells me that a nurse in that ER was able to determine by looking at the patient's apple iWatchthat she had been bradycardic since March. The [...] was part of what is making her feelunwell. She feels that her urinary tract infection is not fully treated at this time as she would expect. Her family thought that she sounded not right talking to her on the phone yesterday and then today the patient began having profound diaphoresis and just feeling very tired and nothing that shecould do would get her self to feel [...] elevated at 5347. High-sensitivity troponin was elevated at169.8. Sodium was 135, potassium 3.7,BUN 21, creatinine 1.43, glucose elevated at 243. Complete blood count was normal with white blood cells 8.9 and hemoglobin 12.2 and platelets 187. There isan Jaymien the chart from the outside hospital where the heart rate was 48. There is some noise underneath but I think that the patient was in a second- degree type II heart block. A twelve-lead EKG done hereat this hospital shows a heart rate of 47 bpm. 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 Family history: The patient states that mostly osteoarthritis in the knee and hip for Unseld on her siblings. Does not seem to be any cardiac disease. Her mother from lung cancer, although the patient's mother did not smoke. The patient's father of an intracranial hemorrhage at the young age of 62. [facility] Vacc[facility] for COVID-19?: Yes Medical History (Updated [...] like a second-degree type II but occasionally thereis features where things slow down and it looks briefly like a third-degree heart block. She has nodropped beats or prolonged periods of bradycardia that [...] % (Auto) 21.6 % (.) 05/05/22 18:33 [place] % (Auto) 6.9 % (.) 05/05/22 18:33 Eos % (Auto) 0.1 % (.) 05/05/22 18:33 Baso % (Auto) 1.0 % (.) 05/05/22 18:33 Nucleat RBC Rel Count 0.1 /100 WBC (0-0.5) 05/05/22 18:33 Neut # (Auto) 4.8 x10E3/uL (1.8-7.7) 05/05/22 18:33 Lymph # (Auto) 1.5 x10E3/uL (1.00-4.8) 05/05/22 18:33 [place] # (Auto) 0.5 x10E3/uL (0.0-0.8) 05/05/22 18:33 Eos # (Auto) 0.0 x10E3/uL (0.0-0.45) 05/05/22 18:33 Baso # (Auto) 0.1 x10E3/uL (0.0-0.2) 05/05/22 18:33 PT 11.9 Seconds (9.0-12.9) 05/05/22 18:33 INR 1.1 05/05/22 18:33 APTT 22.5 Seconds (25.1-36.5) L 05/05/22 18:33 PHA Creatinine Clear 30.26 05/05/22 18:33 Sodium 135 mmol/L (136-146) L 05/05/22 18:33 Potassium 4.3 mmol/L (3.5-5.1) 05/05/22 18: Chloride 98 mmol/L (95-114) 05/05/22 18:33 Carbon Dioxide 26.2 mmol/L (22.0-30.0) 05/05/22 18: Anion Gap 15.1 mEq/L (6.0-15.0) H 05/05/22 18:33 BUN 19 mg/dL (9-23) 05/05/22 18:33 Creatinine 1.33 mg/dL (0.44-1.03) H 05/05/22 18:33 Est GFR ( Amer) 46 mL/Min 05/05/22 18:33 Est GFR (Non-Af Amer) 38 mL/Min 05/05/22 18:33 Glucose 128 mg/dL (70-100) H 05/05/22 18:33 Calcium 8.5 mg/dL (8.2-10.2) 05/05/22 18:33 Magnesium 2.5 mg/dL (1.6-2.6) 05/05/22 18:33 B-Natriuretic Peptide 1340.0 pg/mL (5-100) H 05/05/22 18:33 A&P - Hospitalist Assessment/Plan (1) Symptomatic bradycardia: (2) Heart block: (3) HTN (hypertension): (4) UTI (urinary tract infection): Plan Assessment: This is a patient who presents with symptomatic bradycardia and concerning heartblock. She is on nomedications which would seem to predispose her to bradycardia. She has no history of cardiac disease in the past that is known but has been very healthy considering her age 82 and likely never neededany cardiac work-up in the past. She had profound diaphoresis at home this morning that I think wasdue to supply demand mismatch of her circulation [...] that elevations of both of these are justdue to cardiac strain in the setting of [...] MANOJ inhibitor as her creatinine is elevated aboveher baseline. Documented By: José Nelson DO 1935 Signed By: <Electronically signed by José Nelson DO> 05/05/221951 [facility] Work Phone: 1(424) [phone] NoteHNO ID: [id number] Author: Alo Lomeli MD Service: ? Author Type: Physician Type: Progress Notes Filed: 01/11/2022 11:01 AM Note Text: 1 year postop Right hip revision for dislocation doing great. Ambulating with a cane. No complaints and no pain. X-rays excellent and I counseled her on her activities and we will see her back as needed. Alo Lomeli, [facility]08-09-2022 NoteHNO ID: [id number] Author: RT Mirna(R) Service: ? Author Type: [...] BY: RT Mirna(R) January 11, 2022 10:54 [facility]08-09-2022 History of Present illness Narrative* Alo Lomeli MD - 01/11/2022 10:47 AM EDT 1 year postop Right hip revision for dislocation doing great. Ambulating with a cane. No complaintsand no pain. X-rays excellent and I counseled her on her activities and we will see her back as needed. Alo Lomeli MD [facility] History of Present illness Narrative* Landon Greene [...] 11, 2022 10:54 AM documented in this [facility]Hol[facility]22 NoteHNO ID: [id number] Author: Alo Lomeli MD Service: ? Author Type: Physician Type: Progress Notes Filed: 07/27/2021 11:34 AM Note Text: 5 months postop right hip revision for dislocation continues to do well. No complaints and no pain. X-rays are excellent and I counseled her on her activities and we will see her in February with an x-ray right hip. Alo Lomeli [facility]02-22-2022 NoteHNO ID: [id number] Author: RT Mirna(Aleshia) Service: ? Author Type: [...] BY: RT Mirna(R) July 27, 2021 11:42 [facility]02-22-2022 History of Present illness Narrative* Landon Greene RT(R) - 07/27/2021 11:00 AM EST [...] 27, 2021 11:42 AM documented in [facility]Hol[facility]11-[facility]-2021 NoteHNO ID: [id number] Author: Alo Lomeli MD Service: ? Author Type: Physician Type: Progress Notes Filed: 04/27/2021 9:15 AM Note Text: Postop right hip revision for dislocation doing well. X-rays are excellent and I counseled her on her activities and we will see her back for an x-ray right hip in 3 months. Alo Lomeli, [facility]11-23-2021 NoteHNO ID: [id number] Author: RT Guzmán (R) Service: Radiology Author Type: Technologist Type: Progress [...] PERIPHERAL IV DATA: Not applicable SIGNED BY: AMANDA Guzmán) April 27, 2021 8:31 [facility]11-23-2021 History of Present illness Narrative* Brea Martinez [...] 27, 2021 8:31 AM documented in this encounterHolzer [facility]10-26-2021 NoteHNO ID: [id number] Author: RT Arielle(R) Service: ? Author Type: Technologist Type: Progress [...] DATA: Not applicable SIGNED BY: RT Arielle(R) March 30, 2021 11:38 [facility]10-26-2021 NoteHNO ID: [id number] Author: Alo Lomeli MD Service: ? Author [...] right hip in a month. Alo Lomeli [facility]10-05-2021 NoteHNO ID: [id number] Author: Alo Lomeli MD Service: ? Author [...] her out of the immobilizer. Alo Lomeli [facility]10-05-2021 NoteHNO ID: [id number] Author: RT Mirna(R) Service: ? Author Type: [...] BY: RT Mirna(R) March 09, 2021 10:45 [facility]09-13-2021 NoteAdmission Information Admitting Physician - Yaa SOTO DO Hospital Course 81-year-old female admitted to the hospital after fall at home leading to dislocation of her right hip. Patient is status post right total hip arthroplasty done at [facility] in [facility] in 01/22/2021. Reduction in the ED [...] Patient was seen by PT/OT who recommended [facility] after discharge. During hospitalization patient's pain [...] February 01, 2021 8:14 EDT Encounter info: [id number], Tariq Silver, Observation, 01/31/2021 - 02/02/2021 [1] (01/31/2021 16:39 [...] February 01, 2021 7:41 EDT Encounter info: [id number], Tariq Silver, Observation, 01/31/2021 - 02/02/2021 [2] Discharge Plan Discharge Date/Time:02/02/2021 14:30 1. Unspecified dislocation of right hip, initial encounter (S73.004A: Unspecified dislocation of right hip, initial encounter) -Status post closed reduction in the emergency department. Well-tolerated. -Pt is s/p right total hip arthroplasty done at [facility] on 01/22/2021; I did call and speak to Dr.Kim Lomeli orthopedic office and spoke to Neha VENEGAS; Per Dr.Stearns monk (more content not included)...[facility] TroyComment on above:Result Comment: Electronically Signed By: Kristie ROMERO\.br\Date and Time Signed: 02/04/21 12:03 EDT\.br\Electronically Co-Signed By: Nancy ZHANG MD\.br\Date and Time Co-Signed: 02/15/2109:06 [id number] NoteHNO ID: [id number] Author: Fernando Vazquez MD Service: General Internal [...] Encourage incentive spirometry. Fernando Vazquez MDMercy Health Fairfield [id number] NoteHNO ID: [id number] Author: Lexa Bocanegra MD Service: Orthopaedic Surgery [...] Physician PGY-4 Orthopaedic Surgery Cell / Pager: [phone] [id number] NoteHNO ID: [id number] Author: JOSEPH Ash Service: Anesthesiology Author Type: Portfolio Administrator Type: Anesthesia Procedure Notes Filed: 02/10/2021 2:57 [...] February 10, 2021 TIME: 2:29 PM CSN: [id number] NotePT Evaluation completed with an [facility] score of 17/24. Pt currently requires Min A for bed mobility and CGA to transfer. Pt able to ambulate 12 feet with FWW. Will need SN[facility] NotePT order received and pt's chart was reviewed. Will hold PT Evaluation at this time and await further clarification on pt's weight-bearing status and post-op protocol. [facility]08-30-[facility] Darryl Mojica entered room at this time [...] SNF. SNF quality metrics reviewed, patient prefers [facility]. Patient currently lives at home alone & states her children can transport her at discharge. She reports she is current with [facility]- referral sent to verify services. Patient declines need for CRM to call family for updates. Anticipated discharge 02/02 or 02/03. CRM to follow.[facility] TroyComment on above:Result Comment: Electronically Signed By: Christiano VENEGAS, Galina Greer\.br\Date and Time Signed: 02/01/21 09:35 [id number] NoteChief Complaint Right hip pain History of Present Illness Patient is a 81-year-old female with past medical history as noted below who comes in with above-stated chief complaint. Patient had right hip arthroplasty done at [facility] on 01/22/2021. Pain began to increase [...] surgeon. Phone consultation was made to orthopedics rat poisoner. Decision was madeto perform a closed reduction [...] Pain control as needed. Will notify patient's [facility] orthopedic surgeon of dislocation in the morning. Knee immobilizer and walker use for time being. Ordered: Initial Observation Care/Day High 70 min [id number] 2. Unable to care for self (Z78.9: Other specified health status) Patient unable to care for self with knee immobilizer and walker use. We will ask physical therapy and Occupational Therapy to evaluate patient. Ordered: Initial Observation Care/Day High 70 min 71321 3. Hypertension (I10: Essential (primary) hypertension) Hydralazine [...] Knee Intermittent Pneumatic Compression Device Consult to Model And Mold Maker Immobilizer Notify Provider Vital Signs Notify Provider Vital Signs Occupational Therapy Evaluate Patient, Develop a Plan of Care and Implement Plan Oxygen Protocol Physical Therapy Evaluate Patient, Develop a Plan of Care and Implement Plan Place in Status Precautions Regular Diet Resuscit (more content not included)...[facility] TroyComment on above:Result Comment: Electronically Signed By: Yaa SOTO DO\Date and Time Signed: 02/01/21 01:27 [id number] NoteHNO ID: [id number] Author: AUDRA Horan Service: Care Management Author Type: Director Broadcast Type: Care Mgt Progress Note Filed: 01/23/2021 11:11 AM Note Text: CARE MANAGEMENT DISCHARGE NOTE SERVICE DATE: 01/23/2021 SERVICE TIME: 11:07 AM LOS: 0 days Admission Date: 01/22/2021 DISCHARGE ARRANGEMENT (list agency and phone number) Discharge Arrangement: Home;Home [facility] Care: PT and OT. Provider Name: [facility] CAREGIVER ASSESSMENT: Caregiver is ready, willing and [...] Caregiver Primary Care Physician Name/Phone: Blue Navarro [phone] Other Caregiver Name/Phone: [facility] [phone] TRANSPORTATION ARRANGEMENTS: Transportation Arrangements: Car ADDITIONAL CONTACT RESOURCES: N/A Discharge Information Row Name Admission (Current) from 01/22/[address] [facility] Pt scheduled for discharge. Pt scheduled to discharge home with home care with [facility]. Summary of Care sent to PCP/FMRC. Pt received a copy of the AVS at discharge. Pt will follow up per discharge instructions. Pt will continue to utilize her wheeled walker and elevated toilet seat. There were no transportation needs at discharge. SIGNATURE: AUDRA Horan PATIENT NAME: Roseann Dale DATE: January 23, 2021 TIME: 11:07 AM PAGER/CONTACT #: [phone] [id number] NoteHNO ID: [id number] Author: Martita Barakat MD Service: Orthopaedic Surgery [...] Pulse: 81 86 81 80 Resp: 16 17 17 18 Temp: 36.8 ?C (98.2 ?F) 36.7 ?C [...] day Martita Barakat MD Orthopaedic Surgery, PGY-3 [id number] After 5PM and on weekends page [id number] Health Fairfield HospitalFombukcg20-02-9242 NoteHNO ID: [id number] Author: JOSEPH Moss Service: Anesthesiology Author Type: Portfolio Administrator Type: Anesthesia Procedure Notes Filed: 01/22/2021 8:03 [...] January 22, 2021 TIME: 8:01 AM CSN: [id number] History of Past illness Narrative* ProblemNoted DateResolved DateMyasthenia eeehuk00/01/2021 Last Assessment & Plan: Assessment: No current treatment Monitored by PCP documented as of this encounter (statuses as of 01/07/2022) [facility] History of Past illness Narrative* ProblemNoted Date Resolved DateMyasthenia lfejkq82/01/2021 Last Assessment & Plan: Assessment: No current treatment Monitored by PCP documented as of this encounter (statuses as of 01/11/2022) [facility] NoteHNO ID: [id number] Author: Alo Lomeli MD Service: ? Author [...] Blue Navarro DO REFERRING PROVIDER: Starr Green [address] [facility] [address] ASSESSMENT AND PLAN: Impression: Right Hip Severe [...] Normal: Non smo (more content not included)...[facility]07-12-2021 NoteHNO ID: [id number] Author: Starr Green APRN.OIL AND GAS EXPLORATION TECHNICIAN Service: ? Author Type: Nurse Practitioner Type: [...] by SELF Patient comes in today from [facility] Patient presents with back and right leg [...] BID. Not tired. Physical therapy seeing Sean mnedez at [facility] 2 x per week and feels helpful. [...] 1 TAB WEEKLY ON (more content not included)...[facility] HospitalBhbzpcad06-79-0212 NoteHNO ID: [id number] Author: Starr Green APRN.OIL AND GAS EXPLORATION TECHNICIAN Service: ? Author Type: Nurse Practitioner Type: [...] by SELF Patient comes in today from [facility] Patient presents with back and right leg [...] helpful. Physical therapy seeing Sean mendez at [facility] 2 x per week and feels helpful. [...] loss. HEENT: No recent (more content not included)...[facility] [id number] Note HNO ID: [id number] Author: RT Alexandra(Aleshia) Service: ? Author Type: Pharmacy Sales Assistant Type: Progress Notes Filed: 09/29/2020 9:34 AM [...] BY: Elizabeth Aguilar September 29, 2020 9:34 [facility]04-27-2021 NoteHNO ID: [id number] Author: Starr Green APRN.OIL AND GAS EXPLORATION TECHNICIAN Service: ? Author Type: Nurse Practitioner Type: [...] by SELF Patient comes in today from [facility] Patient presents with back and right leg [...] spasm, no palpable subluxa (more content not included)...[facility] HospitalEvaluation noteNo assessment information availableOhio State East Hospital CtrEvaluation note* Diagnosis History of revision of total replacement of right hip joint- Primary [facility] encounter [facility]* Diagnosis Right hip pain- Primary Pain in joint, pelvic region and thigh documented [facility] this encounter [facility]* Diagnosis Onset Date Resolution Status Acute respiratory failure with hypoxia acuteConstipationacuteHeart blockacuteHemorrhoidacuteHTN (hypertension)acuteNon- ST elevation myocardial infarction (NSTEMI), initial care episodeacuteNSVT (nonsustained ventricular tachycardia)acuteSymptomatic bradycardiaacuteTakotsubo syndromeacuteUTI (urinary tract infection)acute [facility] Work Phone: Evaluation note* Diagnosis Onset Date Resolution Status Acute respiratory failure with hypoxia acuteConstipationacuteHeart blockacuteHemorrhoidacuteHTN (hypertension)acuteNon- ST elevation myocardial infarction (NSTEMI), initial care episodeacuteNSVT (nonsustained ventricular tachycardia)acuteSymptomatic bradycardiaacuteTakotsubo syndromeacuteUTI (urinary tract infection)acuteAcute hypoxemic respiratory failureacuteCHF exacerbationacute [facility] Work Phone: Evaluation note* Diagnosis Onset Date Resolution Status Acute respiratory failure with hypoxia acuteConstipationacuteHeart blockacuteHemorrhoidacuteHTN (hypertension)acuteNon- ST elevation myocardial infarction (NSTEMI), initial care episodeacuteNSVT (nonsustained ventricular tachycardia)acuteSymptomatic bradycardiaacuteTakotsubo syndromeacuteUTI (urinary tract infection)acuteAcute hypoxemic respiratory failureacuteAcute respiratory failure with hypoxiaacuteCHF exacerbationacute Takotsubo cardiomyopathyacute [facility] Work Phone: Evaluation noteNo [facility] [employer] Other Evaluation note* Diagnosis Essential hypertension, benign- Primary Mild CAD Mixed hyperlipidemia Stress-induced cardiomyopathy Takotsubo syndrome Cardiac pacemaker Cardiac pacemaker in situ BMI 24.0-24.9, adult documented in this encounter [facility] Work Phone: Evaluation note* Diagnosis Onset Date Resolution Status Elevated cholesterol acuteGAD (generalized anxiety disorder)acuteLumbar spondylosisacutePrimary hypertensionacutePrimary osteoarthritis of left kneeacuteType 2 diabetes mellitus with hyperglycemiaacuteMedicare annual wellness visit, subsequent noneactive [facility] Work Phone: Evaluation note* Diagnosis Onset Date Resolution Status Elevated cholesterol acuteGAD (generalized anxiety disorder)acuteLumbar spondylosisacutePrimary hypertensionacutePrimary osteoarthritis of left kneeacuteType 2 diabetes mellitus with hyperglycemiaacuteMedicare annual wellness visit, subsequent noneactiveCerumen impactionacuteDecreased hearing of right earacutePrimary hypertensionacute [facility] Work Phone: Evaluation note* Diagnosis Onset Date Resolution Status Cerumen impaction acuteDecreased hearing of right earacutePrimary hypertensionacute [facility] Work Phone: Evaluation note* Diagnosis Onset Date Resolution Status Cerumen impaction acuteDecreased hearing of right earacutePrimary hypertensionacuteDecreased hearing of right earacuteEustachian tube dysfunctionacuteHoarseness of voice acuteTinnitusacutePrimary hypertensionacuteAllergic contact dermatitisnonctive [facility] Work Phone: Evaluation note* Diagnosis Onset Date Resolution Status Decreased hearing of right ear acuteEustachian tube dysfunctionacuteHoarseness of voiceacuteTinnitusacute Primary hypertensionacuteAllergic contact dermatitisnoneactiveElevated cholesterolacuteGAD (generalized anxiety disorder)acuteLumbar spondylosisacute Primary hypertensionacutePrimary osteoarthritis of left kneeacuteType 2 diabetes mellitus with hyperglycemiaacute [facility] Work Phone: Evaluation note* Diagnosis Preop [...] hip arthroplasty, right [facility]* Diagnosis Preop examination- Primary Preoperative examination, [...] Pain Generalized pain documented in this encounter [facility]* Diagnosis Preop examination- Primary [...] by other means documented [facility]* Diagnosis Mixed hyperlipidemia- Primary Essential hypertension, benign Cardiac pacemaker Cardiac pacemaker in situ BMI 25.0-25.9,adult documented in this encounter [facility] Work Phone: Evaluation note* Diagnosis Onset Date Resolution Status Admit Date Elevated cholesterol acuteAugust 22, 2024 9:53amGAD (generalized anxiety disorder)acuteAugust 22, 2024 9:53amLumbar spondylosisacuteAugust 22, 2024 9:53amMammogram declinedacute August 22, 2024 9:53amPrimary hypertensionacuteAugust 22, 2024 9:53amPrimary osteoarthritis of left kneeacuteAugust 22, 2024 9:53amType 2 diabetes mellitus with hyperglycemiaacuteAugust 22, 2024 9:53amMedicare annual wellness visit, subsequentnoneactiveAugust 22, 2024 9:53am [facility] Work Phone: Evaluation note* Diagnosis Essential hypertension, benign- Primary Mild CAD Mixed hyperlipidemia Stress-induced cardiomyopathy Takotsubo syndrome Cardiac pacemaker Cardiac pacemaker in situ BMI 24.0-24.9, adult Complete heart block- Primary Atrioventricular block, complete Essential hypertension, benign Stress-induced cardiomyopathy Takotsubo syndrome Mixed hyperlipidemia Mild CAD Cardiac pacemaker Cardiac pacemaker in situ BMI 25.0-25.9,adult Lower extremity edema Edema documented in this encounter [facility] Work Phone: Evaluation note* Diagnosis Onset Date Resolution Status Admit Date Brachioradial pruritus acuteSeptember 2024 9:51amElevated cholesterolacuteSeptember 2024 9:51amGAD (generalized anxiety disorder)acuteSeptember 2024 9:51amLumbar spondylosisacuteSeptember 23rd, 2025 9:51amPrimary hypertensionacuteSeptember 2024 9:51amPrimary osteoarthritis of left kneeacuteSeptember 2024 9:51amType 2 diabetes mellitus with hyperglycemiaacuteSeptember 2024 9:51am [facility] Work Phone: History general Narrative - Reported* Type Description Date Medical History History of colon polyps Medical HistoryChange in bowel habitMedical HistoryMenopauseMedical History ObesityMedical HistoryDOE (dyspnea on exertion)Medical HistoryLumbosacral spondylosis with radiculopathyMedical HistoryDislocation of right hip, subsequent encounterMedical HistoryAge-related osteoporosis without current pathological fractureMedical HistoryNicotine dependence, cigarettes, in remissionMedical HistoryBell's palsyMedical HistoryHistory of total replacement of right hipMedical HistoryAnxiety, generalizedMedical HistoryImpaired fasting glucoseMedical HistoryOsteoarthritis of right hipMedical HistoryHyperlipidemia, group AMedical HistoryAcute follicular conjunctivitis of left eyeMedical History Chronic constipationMedical HistoryEssential hypertensionMedical HistoryNSVT (nonsustained ventricular tachycardia)Medical HistoryTakotsubo cardiomyopathy Medical HistoryDysuriaMedical HistoryPositional vertigo, bilateralMedical HistoryType 2 diabetes mellitus with hyperglycemia, without long-term current use of insulinSurgical HistoryLEFT HRT CATH W/VENTRCLGRPHYSurgical History INSERTION OF HEART PACEMAKERSurgical HistoryTOTAL HIP ARTHROPLASTYSurgical HistoryREMOVAL OF THYMUS GLANDHospitalization Historysee surgical history [facility] [employer] Other History of Present illness Narrative* The [...] medication regimen. She denies medication side effects. -[facility] [address] DO Work Phone: History [...] regimen. She denies medication side effects. [facility] DO Work Phone: History of Present illness [...] medication regimen. She denies medication side effects. [facility] Work Phone: History of Present illness Narrative* The patient states she has been generally doing well since the last visit. Comorbid Illnesses: hypertension. * Symptoms: denies chest pain at rest, denies exertional chest pain, denies dyspnea, improved fatigue, improved exercise intolerance, denies palpitations, denies edema, denies orthopnea, denies dizziness and denies orthostatic dizziness. * Disease Monitoring: [facility] DO Work Phone: Hospital Discharge instructions Additional [...] with nurse for incision check in the [facility] on 05/13/2022 at 1:00pm. 2. Chest x-ray to be done the same day as your device check at [facility] on 08/04/2022 . 3. Pacemaker/ICD clinic appointment at [facility] on 08/04/2022 at 11:30am. 4. Office visit with Marissa Caldera NP at [facility] in the [place] Office on 08/22/2022 at 11:30am. [][facility] Work Phone: Reason for referral (narrative)* Diagnostic Procedure Only (Routine) - Pending ReviewSpecialtyDiagnoses / ProceduresReferred By ContactReferred To ContactXR IMAGING Diagnoses History of revision of total replacement of right hip joint Procedures XR HIP GENERAL 3V PELV/AP/LAT RIGHT RADEX HIP UNILATERAL WITH PELVIS 2-3 VIEWS Alo Lomeli MD [address] [address] Xr Imaging Referral IDStatusChadSophia DateExpiration DateVisits RequestedVisits [id number] Review Auto-Generated Referral [facility] for referral (narrative)* Consultation (Routine) - AuthorizedSpecialtyDiagnoses / ProceduresReferred By ContactReferred To ContactCardiology Diagnoses Essential hypertension, benign Procedures Follow Up In Cardiology Marissa Caldera, OPTIMIZATION MANAGER-OIL AND GAS EXPLORATION TECHNICIAN [address] [facility] [address] [place] [address] Referral IDStatusReasonStart DateExpiration DateVisits RequestedVisits [id number]/27/202311/ [facility] Work Phone: Reason for referral (narrative)* Diagnostic Procedure Only (Routine) - ClosedSpecialtyDiagnoses / ProceduresReferred By Contact Referred To ContactXR IMAGING Diagnoses History of total hip arthroplasty, right Procedures XR HIP GENERAL 3V PELV/AP/LAT RIGHT RADEX HIP UNILATERAL WITH PELVIS 2-3 VIEWS Rodrigue Zabala PA-C [address] [place] [address] Xr Imaging [place] [address] Referral IDStatusReasonSophia DateExpiration DateVisits RequestedVisits [id number] Auto-Generated Referral / [facility] for referral (narrative)* Diagnostic Procedure Only (Routine) - ClosedSpecialtyDiagnoses / ProceduresReferred By ContactReferred To ContactXR IMAGING Diagnoses Pain Procedures XR HIP GENERAL 3V PELV/AP/LAT RIGHT RADEX HIP UNILATERAL WITH PELVIS 2-3 VIEWS Alo Lomeli MD [address] [place] [address] Xr Imaging [place] [address] Referral IDStatusReasonStart DateExpiration DateVisits RequestedVisits [id number] Auto-Generated Referral / [facility] for referral (narrative)* Diagnostic Procedure Only (Routine) - ClosedSpecialtyDiagnoses / ProceduresReferred By ContactReferred To ContactXR IMAGING Diagnoses Status post revision of total hip replacement Procedures XR HIP GENERAL 3V PELV/AP/LAT RIGHT RADEX HIP UNILATERAL WITH PELVIS 2-3 VIEWS Alo Lomeli MD [address] [place] [address] Imaging [place] [address] Referral IDStatusReasonStfremont DateExpiration DateVisits RequestedVisits [id number] Auto-Generated Referral / [facility] for referral (narrative)* Consultation (Routine) - AuthorizedSpecialtyDiagnoses / ProceduresReferred By ContactReferred To ContactCardiology Diagnoses Essential hypertension, benign Procedures Follow Up In Cardiology Je Ruiz MD [address] [place] [address], [place] [phone] Lucy Degroot MD [address] [place] [address], [place] [phone] Referral IDStatusReasonStart DateExpiration DateVisits RequestedVisits [id number]/25/20246/ [facility] Work Phone: [facility] (narrative)No reason for referral information availablePromedica Memorial Hospital Work Phone: Summary Purpose Family History No Family History Records FoundUnknown Family Member Name Dates Details Hypertension, benign: Father Status:ActiveHemorrhage: Father Status:Active Unknown Family Member Name Dates Details Hypertension, benign: Father Status:ActiveHemorrhage: Father Status:Active Unknown Family Member Name Dates Details Hypertension, benign: Father Status:ActiveHemorrhage: Father Status:Active Unknown Family Member Name Dates Details Hypertension, benign: Father Status:ActiveHemorrhage: Father Status:Active Unknown Family Member Name Dates Details Hypertension, benign: Father Status:ActiveHemorrhage: Father Status:Active Unknown Family Member Name Dates Details Hypertension, benign: Father Status:ActiveHemorrhage: Father Status:Active Unknown Family Member Name Dates Details Hypertension, benign: Father Status:ActiveHemorrhage: Father Status:Active Advance Directives No Advanced Directives Records Found Advance Directive Response Recorded Date/ Time Advance Directives No April 3:20pm TypeDate RecordedPatient RepresentativeExplanationAdvance Directive(s)02/10/2021 10:35 AMAdvance Directive(s)02/03/2021 1:37 PMAdvance Directive(s)01/13/2021 2:20 PMAdvance Directive(s)11/12/2020 7:38 AM Advance Directive Response Recorded Date/ Time Advance Directives No April 2:20pm Chief Complaint and 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 Chief Complaint Admit Date Wellness August 22, 2024 9:5 3am UA, burning, frequency, urgency November 9:34am 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 Admit Date Elevated cholesterol August 22, 2024 9: 53am MAGALY (generalized anxiety disorder) August 22, 2024 9:53am Lumbar spondylosis August 22, 2024 9:5 3am Mammogram declined August 22, 2024 9:5 3am Primary hypertension August 22, 2024 9: 53am Primary osteoarthritis of left knee Justyn 2024 9:53am Type 2 diabetes mellitus with hyperglyce addis August 22, 2024 9:53am Medicare annual wellness visit, subseque nt August 22, 2024 9:53am Chief Complaint B back pain Chief Complaint N Stemi 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 Acute respiratory fa ilure with hypoxia Constipation Heart block Hemorrhoid HTN (hypertension) Non-ST elevation myocardial infarction (NSTEMI), initial care episode NSVT (nonsustained ventricular tachycardia) Symptomatic bradycardia Takotsubo syndrome UTI (urinary tract infection) Chief Complaint N Stemi Dif breathing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Acute respiratory failure with hypoxia Constipation Heart block Hemorrhoid HTN (hypertension) Non-ST elevation myocardial infarction (NSTEMI), initial care episode NSVT (nonsustained ventricular tachycardia) Symptomatic bradycardia Takotsubo syndrome UTI (urinary tract infection) Acute hypoxemic respiratory failure CHF exacerbation Chief Complaint N Stemi Dif breathing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Acute respiratory failure with hypoxia Constipation Heart block Hemorrhoid HTN (hypertension) Non-ST elevation myocardial infarction (NSTEMI), initial care episode NSVT (nonsustained ventricular tachycardia) Symptomatic bradycardia Takotsubo syndrome UTI (urinary tract infection) Acute hypoxemic respiratory failure Acute respiratory failure with hypoxia CHF exacerbation Takotsubo cardiomyopathy Chief Complaint N Stemi Dif breathing [facility] VTACH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Acute respiratory failure with hypoxia Constipation Heart block Hemorrhoid HTN (hypertension) Non-ST elevation myocardial infarction (NSTEMI), initial care episode NSVT (nonsustained ventricular tachycardia) Symptomatic bradycardia Takotsubo syndrome UTI (urinary tract infection) Acute hypoxemic respiratory failure Acute respiratory failure with hypoxia CHF exacerbation Takotsubo cardiomyopathy Chief Complaint [facility] Z95.0 I48.81 I10 I50.20 E11.65 Z79.899 Chief Complaint [facility] Chief Complaint [facility] Medicare Wellness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Elevated cholesterol MAGALY (generalized anxiety disorder) Lumbar spondylosis Primary hypertension Primary osteoarthritis of left knee Type 2 diabetes mellitus with hyperglycemia Medicare annual wellness visit, subsequent Chief Complaint Medicare Wellness [facility] VTACH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Elevated cholesterol MAGALY (generalized anxiety disorder) Lumbar spondylosis Primary hypertension Primary osteoarthritis of left knee Type 2 diabetes mellitus with hyperglycemia Medicare annual wellness visit, subsequent Chief Complaint Medicare Wellness [facility] right ear plugged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Elevated cholesterol MAGALY (generalized anxiety disorder) Lumbar spondylosis Primary hypertension Primary osteoarthritis of left knee Type 2 diabetes mellitus with hyperglycemia Medicare annual wellness visit, subsequent Cerumen impaction Decreased hearing of right ear Primary hypertension Chief Complaint [facility] right ear plugged ear plugged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Cerumen impaction Decreased hearing of right ear Primary hypertension Chief Complaint [facility] right ear plugged ear plugged poison ivy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Cerumen impaction Decreased hearing of right ear Primary hypertension Decreased hearing of right ear Eustachian tube dysfunction Hoarseness of voice Tinnitus Primary hypertension Allergic contact dermatitis Chief Complaint right ear plugged ear plugged poison teresa [facility] VTACH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Cerumen impaction Decreased hearing of right ear Primary hypertension Decreased hearing of right ear Eustachian tube dysfunction Hoarseness of voice Tinnitus Primary hypertension Allergic contact dermatitis Chief Complaint ear plugged poison teresa [facility] 6 month follow up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Decreased hearing of right ear Eustachian tube dysfunction Hoarseness of voice Tinnitus Primary hypertension Allergic contact dermatitis Elevated cholesterol MAGALY (generalized anxiety disorder) Lumbar spondylosis Primary hypertension Primary osteoarthritis of left knee Type 2 diabetes mellitus with hyperglycemia Chief Complaint Admit Date 6 month follow up February 22, 2024 9:54am [facility] April 22, 2024 7:42am 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 Admit Date Elevated cholesterol February 21 9:54am MAGALY [facility]generalized anxiety disorder[facility] Lumbar spondylosis February 22, 2024 9:54am Overweight February 22, 2024 9:54am Primary hypertension February 21 9:54am Primary osteoarthritis of left knee [facility] 2023 9:54am Type 2 diabetes mellitus with hyperglyce addis February 22, 2024 9:54am Chief Complaint Admit Date [facility] VTA July 22, 2024 8:00am [facility] VTACH July 22, 2024 1:53pm Chief Complaint Admit Date [facility] VTACH July 22, 2024 8:00am [facility] July 22, 2024 1:53pm Wellness August 22, 2024 9:5 3am Chief Complaint Admit Date UA, burning, frequency, urgency November 9:34am [facility] VTACH December 30, 2024 10:1 8am Chief Complaint Admit Date [facility] December 30, 2024 10:1 8am 6 month f/u February 25, 2025 9:51am 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 Admit Date Brachioradial pruritus February 25, 2 025 9:51am Elevated cholesterol February 25 9:51am MAGALY (generalized anxiety disorder) [facility] 2024 9:51am Lumbar spondylosis February 25, 2025 9:51am Primary hypertension February 25 9:51am Primary osteoarthritis of left knee [facility]2024 9:51am Type 2 diabetes mellitus with hyperglyce [facility] February 25, 2025 9:51am Chief Complaint Admit Date [facility] December 30, 2024 10:1 8am 6 month f/u February 25, 2025 9:51am [facility] March 28, 2025 1 2:55pm Chief Complaint Patient is here today status post pcm insertion done by Dr. Je Ruiz MD at [facility] on 05/06/22.Dr. Peyman Castro MD in suite. [...] This is initial in clinic follow-up at [facility]. * May 2022 presented to [facility] due to weakness. She was noted to [...] May 12, 2022 V paced QRS 136. [place] QRS unknown. * Takotsubo cardiomyopathy EF 40%. [...] This is initial in clinic follow-up at [facility]. * May 2022 presented to [facility] due to weakness. She was noted to [...] May 12, 2022 V paced QRS 136. [place] QRS unknown. * Takotsubo cardiomyopathy EF 40%. [...] more conditioned. She is working out in [employer] garden and dragging the garden hose all [...] section and content) DATE CREATED AUTHOR 12/28/2020 [facility] DATE CREATED AUTHOR AUTHOR'S ORGANIZ ATION 12/29/2020 [facility] DATE CREATED AUTHOR AUTHOR'S ORGANIZ ATION 02/14/2021 [facility] DATE CREATED AUTHOR AUTHOR'S ORGANIZ ATION 02/15/2021 [facility] DATE CREATED AUTHOR AUTHOR'S ORGANIZ ATION 01/12/2022 [facility] DATE CREATED AUTHOR AUTHOR'S ORGANIZ ATION 09/01/2022 [facility] DATE CREATED AUTHOR AUTHOR'S ORGANIZ ATION 11/12/2022 [facility] DATE CREATED AUTHOR AUTHOR'S ORGANIZ ATION 02/02/2023 [facility] DATE CREATED AUTHOR AUTHOR'S ORGANIZ ATION 12/26/2024 [facility] DATE CREATED AUTHOR AUTHOR'S ORGANIZ ATION 04/04/2025 [facility] Goals (unrecognized section and content) Goals [...] or prosecute any alcohol or drug abuse patient.[facility] HospitalIn the event this information is protected by the Federal Confidentiality of Alcohol and Drug Abuse Patient Records regulations: The Federal rules restrict any use of the information to criminally investigate or prosecute any alcohol or drug abuse patient.[facility] HospitalIn the event this information is protected by the Federal Confidentiality of Alcohol and Drug Abuse Patient Records regulations: The Federal rules restrict any use of the information to criminally investigate or prosecute any alcohol or drug abuse patient.[facility] HospitalIn the event this information is protected by the Federal Confidentiality of Alcohol and Drug Abuse Patient Records regulations: The Federal rules restrict any use of the information to criminally investigate or prosecute any alcohol or drug abuse patient.[facility] HospitalIn the event this information is protected by the Federal Confidentiality of Alcohol and Drug Abuse Patient Records regulations: The Federal rules restrict any use of the information to criminally investigate or prosecute any alcohol or drug abuse patient.[facility] Care Teams (unrecognized sec tion and content) Team Status: Active Member Role Status Dates Blue Navarro DO Primary Care Provider Active Team Status: Active Member Role Status Dates Blue Navarro DO Primary Care Provider Active Start: December 30, 2024 Lucy Degroot MDOther ProviderActiveStart: December 30, 2024 Shannon Andersen ProviderActiveStart: December 30, 2024 Team Status: Inactive Member Role Status Dates Blue Navarro DO Primary Care Provider Active Start: February 25, 2025 End: February 25enphyllis Navarro DOAttaugustine ProviderActiveStart: February 25, 2025 End: February 25, 2025 Team Status: Inactive Member Role Status Christiane Navarro DO Primary Care Provide r, Attending Provider Active Start: August 22, 2024 End: August 22, 2024 Team Status: Active Member Role Status Christiane Navarro DO Primary Care Provide r, Attending Provider Active Start: September 02, 2024 Team Status: Inactive Member Role Status Christiane Navarro DO Primary Care Provide r, Attending Provider Active Start: November 06, 2024 End: November 06, 2024 Team Status: Active Member Role Status Dates Blue Navarro DO Primary Care Provider Active Start: July 22, 2024 Je Ruiz MDOther ProviderActiveStart: July 22, 2024 Shannon Andersen ProviderActiveStart: July 22, 2024 Team Status: Inactive Member Role Status Christiane Navarro DO Primary Care Provider Active Start: July 22, 2024 End: July 22, 2024Shannon Workman ProviderActiveStart: July 22, 2024 End: July 22, 2024 Team Status: Inactive Member Role Status Dates Blue Navarro , Primary Care Provider Active Shannon Shipley ProviderActive Team Status: Inactive Member Role Status Dates Blue Navarro , DO Primary Care Provider, Other Provid er Active Marissa Caldera , LUISNAttending ProviderActiveTeam MemberRelationship SpecialtyStart DateEnd Date Melanie Blue Goode, DO [address] [place] [address] PCP - GeneralInternal Medicine01/29/17Team MemberRelationshipSpecialtyStart Date End Date Blue Navarro, DO [address] [place] [address] PCP - GeneralInternal Medicine01/29/17 Team Status: Inactive Member Role Status Dates Blue Navarro , Primary Care Provider Active José Nelson DOAdmit ProviderActiveJulio Schreiber , [place] ProviderActive Team Status: Active Member Role Status Dates Blue Navarro , Primary Care Provider Active Bill Adamrjaye ProviderActiveJulio Schreiber , DOAdmit Provider, Attending ProviderActive Team Status: Inactive Member Role Status Dates Blue Navarro , Primary Care Provider Active Bill Adamrjaye ProviderActiveJulio Schreiber , DOAdmit Provider, Attending ProviderActiveTeam MemberRelationshipSpecialtyStart DateEnd Date Blue Navarro Koko, DO [address] [place] [address] [facility] Vepajxlj77/27/23 Team Status: Inactive Member Role Status Dates Blue Navarro DO Primary Care Provider Active Start: July 21, 2023 End: July 21, 2023Shannon Shipley ProviderActive Start: July 21, 2023 End: July 21, 2023 Team Status: Inactive Member Role Status Dates Blue Navarro DO Primary Care Provide r, Attending Provider Active Start: August 22, 2023 End: August 22, 2023 Team Status: Active Member Role Status Dates Blue Ball , DO Primary Care Provide r, Attending Provider Active Start: August 25, 2023 Team Status: Inactive Member Role Status Dates Blue Navarro DO Primary Care Provider Active Start: October 23, 2023 End: October 23, 2023Shannon Shipley ProviderActiveStart: October 23, 2023 End: October 23, 2023 Team Status: Inactive Member Role Status Dates Blue Navarro DO Primary Care Provide r, Attending Provider Active Start: November 15, 2023 End: November 15, 2023 Team Status: Inactive Member Role Status Dates Blue Navarro DO Primary Care Provide r, Attending Provider Active Start: December 05, 2023 End: December 05, 2023 Team Status: Inactive Member Role Status Dates Blue Navarro DO Primary Care Provide r, Attending Provider Active Start: January 15, 2024 End: January 15, 2024 Team Status: Inactive Member Role Status Christiane Navarro DO Primary Care Provider Active Start: January 22, 2024 End: January 22, 2024Shannon Shipley ProviderActiveStart: January 22, 2024 End: January 22, 2024 Team Status: Active Member Role Status Dates Blue Navarro DO Primary Care Provider Active Start: January 22, 2024 Ernesto Shipley ProviderActiveStart: January 22, 2024 Shannon Andersen ProviderActiveStart: January 22, 2024 Team Status: Inactive Member Role Status Christiane Navarro DO Primary Care Provide r, Attending Provider Active Start: February 22, 2024 End: February 22, 2024Team MemberRelationshipSpecialtyStart DateEnd Date Blue Navarro DO [address] [place] [address] PCP - GeneralInternal Medicine01/29/17Team MemberRelationshipSpecialtyStart Date End Date Blue Navarro DO [address] [place] [address] PCP - GeneralInternal Medicine01/29/17 Team Status: Active Member Role Status Dates Blue Navarro DO Primary Care Provider Active Start: April 22, 2024 Ernesto Workman ProviderActiveStart: April 22, 2024 Angeline Bradley MDAttending ProviderActiveStart: April 22, 2024 Team MemberRelationshipSpecialtyStart DateEnd Date [facility]/27/23Team MemberRelationshipSpecialtyStart Date End Date Blue Navarro DO [address] [place] [address] PCP - [facility]11/13/24 Team Status: Inactive Member Role Status Dates Blue Navarro DO Primary Care Provider Active Start: November 06, 2024 End: November 06Salud Birch ProviderActiveStart: November 06, 2024 End: November 06, 2024 Team Status: Inactive Member Role Status Dates Blue Navarro DO Primary Care Provider Active Start: December 30, 2024 End: December 30, 2024Shannon Workman ProviderActiveStart: December 30, 2024 End: December 30, 2024 Team Status: Active Member Role/Relationship Status Dates Blue Navarro DO Primary Care Provider Active Team Status: Active Member Role/Relationship Status Dates Blue Navarro DO Primary Care Provider Active Start: December 30, 2024 Ernesto Workman ProviderActiveStart: December 30, 2024 Kvng Andersenending ProviderActiveStart: December 30, 2024 Team Status: Inactive Member Role/Relationship Status Dates Blue Navarro DO Primary Care Provider Active Start: February 25, 2025 End: February 25Salud Birch ProviderActiveStart: February 25, 2025 End: February 25, 2025 Team Status: Active Member Role/Relationship Status Dates Blue Navarro DO Primary Care Provider Active Start: March 28, 2025 Ernesto Workman ProviderActiveStart: March 28, 2025 Shannon Andersen ProviderActiveStart: March 28, 2025 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 (unrecogniz ed section and content) ReasonCommentsPost OpReasonCommentsFollow-zg8fOlwdkqZteomiokSnvih Gen RMP SpecialtyDiagnoses / ProceduresReferred By ContactReferred To ContactXR IMAGING Diagnoses History of total hip arthroplasty, right Procedures XR HIP GENERAL 3V PELV/AP/LAT RIGHT RADEX HIP UNILATERAL WITH PELVIS 2-3 VIEWS Rodrigue Zabala PA-C [address] [place] [address] Xr Imaging [place] [address] Referral IDStatusReasonStart DateExpiration DateVisits RequestedVisits [id number] Auto-Generated Referral /[id number] / ProceduresReferred By ContactReferred To ContactXR IMAGING Diagnoses Pain Procedures XR HIP GENERAL 3V PELV/AP/LAT RIGHT RADEX HIP UNILATERAL WITH PELVIS 2-3 VIEWS Alo Lomeli MD [address] [place] [address] Xr Imaging [place] [address] Referral IDStatusReasonStart DateExpiration DateVisits RequestedVisits [id number] Auto-Generated Referral /[id number] / ProceduresReferred By ContactReferred To ContactXR IMAGING Diagnoses Status post revision of total hip replacement Procedures XR HIP GENERAL 3V PELV/AP/LAT RIGHT RADEX HIP UNILATERAL WITH PELVIS 2-3 VIEWS Alo Lomeli MD [address] [place] [address] Xr Imaging [place] [address] Referral IDStatusReasonStart DateExpiration DateVisits RequestedVisits [id number] Auto-Generated Referral /[id number]-[id number] monthsSpecialtyDiagnoses / ProceduresReferred By ContactReferred To ContactCardiology Diagnoses Essential hypertension, benign Procedures Follow Up In Cardiology Marissa Caldera, OPTIMIZATION MANAGER-OIL AND GAS EXPLORATION TECHNICIAN [address] [place] [address], [address] [address] Je Ruiz MD [address] [place] [address], [place] [phone] Ref[facility]Status[facility] DateExpiration DateVisits RequestedVisits [id number]/13/202312/12/[id number] year Follow up for HypertensionSpecialtyDiagnoses / ProceduresReferred By Contact Referred To ContactCardiology Diagnoses Essential hypertension, benign Procedures Follow Up In Cardiology Je Ruiz MD Traboulssi, Mourhaf, MD [address] [place] [address], [address] [address] Phone: tel: fax: Ref[facility]Status[facility] DateExpiration DateVisits RequestedVisits [id number]/[id number]/[id number] FOR RECORDS PERTAINING TO PATIENTS WHO ARE [...] BE BASED ON THE PRIMARY CLINICAL RECORDS. [facility]. provides no warranty or guarantee of the accuracy or completeness of information in this document.
== END 2025-04-17 16:35 | disposition home or self-care (01) ==
PROVIDERS: Emergency Provider Emergency Medicine; PCP Internal Medicine
DX: M25.551 Pain in right hip (principal); Z96.641 Presence of right artificial hip joint
CPT/HCPCS: 73502; 96372; 99284; J1885